=== PATIENT | female | born 1955 | race African-American/Black ===

== ENCOUNTER 2017-11-10 11:57 | Emergency (ER) | payer OTHER ==
--- NOTE | 2017-11-10 13:14 | RAD REPORT ---
EXAM DESCRIPTION: CT - [id number] - 11/10/2017 1:03 pm CLINICAL HISTORY: Fall, blunt force trauma to the head and face COMPARISON: CT head and cervical October 2014 TECHNIQUE: Axial 5 mm thick images of the head were obtained. Axial 2 mm thick images of the cervic al spine were obtained with sagittal and coronal reconstruction images generated and reviewed. All CT scans are performed using dose optimization technique as appropriate and may include automated exposure control or mA/KV adjustment according to patient size. FINDINGS: No intracranial hemorrhage, mass, edema or acute intracranial finding. No acute cortical based infarc tion. Minimal atrophy and chronic ischemic change matches the prior study. Ventricles are in proporti on to any volume loss. No extra-axial fluid collections. Mastoid air cells are clear. Sinuses, orbits and facial bones are separately detailed. Cervical bodies are normal in height. No subluxation abnormality. There is reversal of the usual cerv ical lordosis that could be from muscle spasm or positioning artifact. Anterior endplate spurs are pr esent from C2 - C6. No disk space narrowing. No fracture or acute bony abnormality. No paraspinal mass or hematoma. Central canal detail is inherently limited. IMPRESSION: No hemorrhage, edema or acute intracranial finding. Patient has mild atrophy and chronic ischemic change matching the 2015 study. Cervical spine degenerative changes are present. No acute finding or significant change from 2015. Facial bones, sinuses and orbits are separately detailed. Negative CT cervical spine examination for acute or significant finding.
--- NOTE | 2017-11-10 13:18 | RAD REPORT ---
EXAM DESCRIPTION: CT - Facial Bones W/ Mpr - 11/10/2017 1:03 pm CLINICAL HISTORY: Trip and fall, blunt force trauma to the right orbital region COMPARISON: CT imaging October 2014. TECHNIQUE: Axial 2 millimeter thick images of the facial bones were obtained with sagittal and coron al reconstruction imaging. All CT scans are performed using dose optimization technique as appropriate and may include automated exposure control or mA/KV adjustment according to patient size. FINDINGS: No facial bone fractures are identifiable. Buckling of the medial right orbital wall has n o associated ethmoid air cell or orbital fat abnormality. This appears to been present back 2014 as w ell. Contusion or edema changes are seen in the right periorbital soft tissues is well is overlying t he right maxillary sinus. There are no air-fluid levels in the paranasal sinuses. The mastoid air edouard ls are clear. Condyles of the mandible are normally positioned. No foreign body. No globe or orbital content abnormality identifiable. Right deviation of the posterior nasal septum is present believed t o predate the injury. No acute nasal septum fracture. IMPRESSION: No acute facial bone fracture. No orbit or sinus acute finding identifiable. Periorbital contusion and edema changes on the right.
--- NOTE | 2017-11-10 13:34 | EDPHYS ---
Physician Documentation [facility] Name: Paola Ji Age: 62 yrs Sex: Female : 1955 Arrival Date: 11/10/2017 Time: 12:00 Bed 5 Private MD: ED Physician Tripp Bernardo HPI: 11/10 13:29 This 62 yrs old Black Female presents to ER via Ambulatory with complaints of Eye rn Injury. 13:29 The patient sustained contusion. Onset: The symptoms/episode began/occurred 2 day(s) rn ago. 13:29 Aggravated by nothing. Alleviated by nothing. Associated signs and symptoms: Pertinent rn negatives:. Severity of symptoms: in the emergency department the symptoms have improved. The patient has not experienced similar symptoms in the past. Reports tripped, hit face on dresser, happened 2 days ago, no LOC, no blood thinners, hurts on face and neck. . Historical: - Allergies: 12:24 No Known Allergies; ph - Home Meds: 12:24 Hydrochlorothiazide Oral [Active]; amlodipine oral [Active]; carvedilol oral oral ph [Active]; - PMHx: 12:24 Hypertension; ph - PSHx: 12:24 Appendectomy; ph - Social history:: Smoking status: Patient uses tobacco products, denies chronic smoking, but will smoke occasionally. - Family history:: not pertinent. - Hospitalizations: : No recent hospitalization is reported. ROS: 13:29 Constitutional: Negative for fever, chills, and weight loss, Eyes: + right eye injury rn and pain ENT: Negative for injury, pain, and discharge, Neck: + pain, no swelling Cardiovascular: Negative for chest pain, palpitations, and edema, Respiratory: Negative for shortness of breath, cough, wheezing, and pleuritic chest pain, Abdomen/GI: Negative for abdominal pain, nausea, vomiting, diarrhea, and constipation, Back: Negative for injury and pain, MS/Extremity: Negative for injury and deformity, Skin: Negative for injury, rash, and discoloration, Neuro: Negative for weakness, numbness, tingling, and seizure. Exam: 13:29 Constitutional: This is a well developed, well nourished patient who is awake, alert, rn and in no acute distress. Head/Face: Normocephalic, + right periorbital ecchymosis, no crepitus, no laceration Eyes: Pupils equal round and reactive to light, extra-ocular motions intact. Lids and lashes normal. Conjunctiva and sclera are non-icteric and not injected. Cornea within normal limits. ENT: Nares patent. No nasal discharge, no septal abnormalities noted. Oropharynx with no redness, swelling, or masses, exudates, or evidence of obstruction, uvula midline. Mucous membranes moist. Neck: Trachea midline, no thyromegaly or masses palpated, and no cervical lymphadenopathy. Supple, full range of motion without nuchal rigidity, or vertebral point tenderness. No Meningismus. Skin: Warm, dry with normal turgor. Normal color with no rashes, no lesions, and no evidence of cellulitis. MS/ Extremity: Pulses equal, no cyanosis. Neurovascular intact. Full, normal range of motion. Equal circumference. Neuro: Awake and alert, GCS 15, oriented to person, place, time, and situation. Cranial nerves II-XII grossly intact. Motor strength 5/5 in all extremities. Sensory grossly intact. Cerebellar exam normal. Normal gait. Vital Signs: 12:23 BP 154 / 94; Pulse 88; Resp 18; Temp 97.5; Pulse Ox 100% on R/A; Weight 77.11 kg; ph Height 5 ft. 6 in. (167.64 cm); Pain 9/10; 12:23 Body Mass Index 27.44 (77.11 kg, 167.64 cm) ph MDM: 13:16 Patient medically screened. rn 13:29 Data reviewed: vital signs, nurses notes, radiologic studies, CT scan, and as a result, rn I will discharge patient. Counseling: I had a detailed discussion with the patient and/or guardian regarding: the historical points, exam findings, and any diagnostic results supporting the discharge/admit diagnosis, radiology results, the need for outpatient follow up, to return to the emergency department if symptoms worsen or persist or if there are any questions or concerns that arise at home. Special discussion: Based on the patient's history, exam and DX evaluation, there is no indication for emergent intervention or inpatient TX. It is understood by the patient/guardian that if the SXs persist or worsen they need to return immediately for re-evaluation. I discussed with the patient/guardian in detail that at this point there is no indication for admission to the hospital. It is understood, however, that if the symptoms persist or worsen the patient needs to return immediately for re-evaluation. 11/10 13:34 Order name: Urine Dipstick--Ancillary (enter results) bd 11/10 12:50 Order name: CT Head C Spine rn 11/10 12:50 Order name: CT Facial Bones W/O Con; Complete Time: 13:33 rn Administered Medications: No medications were administered Disposition: 11/10/17 13:33 Discharged to Home. Impression: Facial Contusion. - Condition is Stable. - Discharge Instructions: Contusion, Eye Contusion, Facial or Scalp Contusion. - Medication Reconciliation Form, Thank You Letter, Antibiotic Education, Prescription Opioid Use, Work release form form. - Follow up: Private Physician; When: As needed; Reason: Recheck today's complaints, Re-evaluation by your physician. - Problem is new. - Symptoms have improved. Signatures: Dispatcher [employer] EDMS Tripp Bernardo MD MD rn Hall, Patricia, RN RN ph Baxter, Heather, RN RN hb Corrections: (The following items were deleted from the chart) 13:30 13:29 Onset: The symptoms/episode began/occurred just prior to arrival, rn rn 13:49 13:33 11/10/2017 13:33 Discharged to Home. Impression: Facial Contusion. Condition is hb Stable. Forms are Medication Reconciliation Form, Thank You Letter, Antibiotic Education, Prescription Opioid Use. Follow up: Private Physician; When: As needed; Reason: Recheck today's complaints, Re-evaluation by your physician. Problem is new. Symptoms have improved. rn
--- NOTE | 2017-11-10 13:34 | ER ---
Nurse's Notes [facility] Name: Paola Ji Age: 62 yrs Sex: Female : 1955 Arrival Date: 11/10/2017 Time: 12:00 Bed 5 Private MD: Diagnosis: Facial Contusion Presentation: 11/10 12:20 Presenting complaint: Patient states: " I tripped and fell in my grandson's room and ph hit my face on his dresser. My neck is hurting on the L side and I have a knot on my head." Swelling and bruising noted to R eye, small knot on R protestant, pt denies LOC, dizziness, N/V, fall occurred Thursday. Transition of care: patient was not received from another setting of care. Mechanism of Injury: Fall from standing position. The patient denies any loss of vision. Onset of symptoms was November 10, 2017. Initial Sepsis Screen: Does the patient meet any 2 criteria? No. Patient's initial sepsis screen is negative. Does the patient have a suspected source of infection? No. Patient's initial sepsis screen is negative. Care prior to arrival: None. 12:20 Method Of Arrival: Ambulatory ph 12:20 Acuity: JAIMEE 4 ph Historical: - Allergies: 12:24 No Known Allergies; ph - Home Meds: 12:24 Hydrochlorothiazide Oral [Active]; amlodipine oral [Active]; carvedilol oral oral ph [Active]; - PMHx: 12:24 Hypertension; ph - PSHx: 12:24 Appendectomy; ph - Social history:: Smoking status: Patient uses tobacco products, denies chronic smoking, but will smoke occasionally. - Family history:: not pertinent. - Hospitalizations: : No recent hospitalization is reported. Screenin:15 Abuse screen: Denies threats or abuse. Denies injuries from another. Nutritional hb screening: No deficits noted. Tuberculosis screening: No symptoms or risk factors identified. Fall Risk None identified. Assessment: 13:15 General: Appears in no apparent distress. Behavior is calm, cooperative. Pain: Pain hb currently is 2 out of 10 on a pain scale. Neuro: Level of Consciousness is awake, alert, obeys commands, Oriented to person, place, time, situation. Cardiovascular: Capillary refill < 3 seconds Patient's skin is warm and dry. Respiratory: Airway is patent Trachea midline Respiratory effort is even, unlabored, Respiratory pattern is regular, symmetrical. EENT: Eyes clear. Sclera/Cornea clear. right periorbital bruising noted. Vital Signs: 12:23 BP 154 / 94; Pulse 88; Resp 18; Temp 97.5; Pulse Ox 100% on R/A; Weight 77.11 kg; ph Height 5 ft. 6 in. (167.64 cm); Pain 9/10; 12:23 Body Mass Index 27.44 (77.11 kg, 167.64 cm) ph ED Course: 12:00 Patient arrived in ED. sb2 12:23 Triage completed. ph 12:25 Arm band placed on. ph 12:56 CT completed. Patient tolerated procedure well. Patient moved to CT via wheelchair. Patient moved back from CT. 13:03 CT Head C Spine In Process Unspecified. EDMS 13:03 CT Facial Bones W/O Con In Process Unspecified. EDMS 13:05 CT completed. Patient tolerated procedure well. Patient moved back from radiology. 13:10 Patient has correct armband on for positive identification. Bed in low position. Call hb light in reach. Side rails up X 1. 13:16 Tripp Bernardo MD is Attending Physician. rn 13:47 Susan Traore, RN is Primary Nurse. hb 13:49 No provider procedures requiring assistance completed. Patient did not have IV access hb during this emergency room visit. Administered Medications: No medications were administered Outcome: 13:33 Discharge ordered by . rn 13:49 Discharged to home ambulatory. hb 13:49 Condition: stable 13:49 Discharge instructions given to patient, Instructed on discharge instructions, follow up and referral plans. Demonstrated understanding of instructions, follow-up care. 13:49 Patient left the ED. hb Signatures: Dispatcher [employer] EDKS Tripp Bernardo MD MD rn Hall, Patricia, RN RN Opal Paul Susan Traore, JB RN Brittany Win sb2
[2017-11-10 13:47] LABS: Urine Blood TRACE (NEG); Urine Glucose NEGATIVE (NEG); Urine Protein NEGATIVE (NEG); Urine Specific Gravity <1.005 (1.005-1.030); Urine pH 5.5 (5.0-7.0)
[2017-11-10 13:55] VITALS: BP 154/94; TEMP 97.5; O2SAT 100
== END 2017-11-10 13:49 | disposition home or self-care (01) ==
LOC: ER 11:57
DX: S00.83XA Contusion of other part of head, initial encounter (principal); W01.190A Fall on same level from slipping, tripping and stumbling with subsequent striking against furniture, initial encounter; Y93.9 Activity, unspecified; Y92.009 Unspecified place in unspecified non-institutional (private) residence as the place of occurrence of the external cause; Z72.0 Tobacco use; I10 Essential (primary) hypertension
CPT/HCPCS: 70450; 70486; 72125; 76377; 81003; 99284

== ENCOUNTER 2018-06-20 09:41 | Emergency (ER) | payer SELFPAY ==
[2018-06-20 10:20] LABS: Absolute Lymphocytes (CBC) 2.6 K/uL (0.7-4.9); Absolute Monocytes 0.5 K/uL (0.1-1.3); Absolute Neutrophil 2.2 K/uL (1.8-8.0); Basophils % 1.1 % (0-1.3); Eosinophils % 1.8 % (0-4.4); Hematocrit 47.9 % (36.0-45.0); Lymphocytes % 48.7 % (15.3-44.8); MCH 31.3 pg (27.0-35.0); MCV 90.8 fL (80-100); MPV 7.3 fL (7.6-11.3); Monocytes % 8.8 % (3.3-12.3); RBC Red Blood Cell Count 5.27 M/uL (3.86-4.86)
[2018-06-20 10:22] LABS: Protime INR 0.94
[2018-06-20 10:39] LABS: ALT/SGPT 39 U/L (12-78); AST/SGOT 67 U/L (15-37); Albumin 3.2 g/dL (3.4-5.0); Alkaline Phosphatase 151 U/L (45-117); BUN Blood Urea Nitrogen 7 mg/dL (7-18); Bicarbonate 24 mmol/L (21-32); Bilirubin Direct 0.1 mg/dL (0-0.2); Bilirubin Total 0.4 mg/dL (0.2-1.0); Glucose Level 91 mg/dL (74-106); Magnesium 2.4 mg/dL (1.8-2.4); NT PRO-BNP 50 pg/mL (<125); Potassium 3.5 mmol/L (3.5-5.1); Protein, Total 7.8 g/dL (6.4-8.2); Sodium Level 135 mmol/L (136-145); Troponin (Emerg Dept Use Only) < 0.02 ng/mL (0.0-0.045)
[2018-06-20 10:49] LABS: Blood Morphology Comment NOT SEEN (NOT SEEN); Platelet Estimate ADEQ; Urine White Blood Cell Casts OK
--- NOTE | 2018-06-20 11:49 | EDPHYS ---
Physician Documentation [facility] Name: Paola Ji Age: 63 yrs Sex: Female : 1955 Arrival Date: 06/20/2018 Time: 09:43 Bed 4 Private MD: ED Physician Jean Soliman HPI: 06/20 10:09 This 63 yrs old Black Female presents to ER via Wheelchair with complaints of Chest ps1 Pain. 10:09 Onset was over a month ago. Pain is nonspecific, dull, localized left chest and into ps1 left arm. Rated as mild. Additionally states that she has CHF and HTN. Out of meds for a while. No known [place] history. Appears anxious about being in ED. . Historical: - Allergies: 09:54 No Known Allergies; hj - Home Meds: 09:54 amlodipine oral [Active]; carvedilol Oral [Active]; Hydrochlorothiazide Oral [Active]; hj - PMHx: 09:54 Hypertension; iw - PSHx: 09:54 Appendectomy; iw - Immunization history:: Adult Immunizations up to date. - Ebola Screening: : Patient negative for fever greater than or equal to 101.5 degrees Fahrenheit, and additional compatible Ebola Virus Disease symptoms Patient denies exposure to infectious person Patient denies travel to an Ebola-affected area in the 21 days before illness onset No symptoms or risks identified at this time. - Social history:: Smoking status: Patient uses tobacco products, Patient/guardian denies using alcohol. ROS: 10:09 Constitutional: Negative for fever, chills, and weight loss, Eyes: Negative for injury, ps1 pain, redness, and discharge, Respiratory: Negative for shortness of breath, cough, wheezing, and pleuritic chest pain, Abdomen/GI: Negative for abdominal pain, nausea, vomiting, diarrhea, and constipation, Back: Negative for injury and pain, MS/Extremity: Negative for injury and deformity, Skin: Negative for injury, rash, and discoloration, Neuro: Negative for headache, weakness, numbness, tingling, and seizure. 10:09 Cardiovascular: Positive for chest pain. Exam: 10:09 Constitutional: This is a well developed, well nourished patient who is awake, alert, ps1 and in no acute distress. Head/Face: Normocephalic, atraumatic. Eyes: Pupils equal round and reactive to light, extra-ocular motions intact. Lids and lashes normal. Conjunctiva and sclera are non-icteric and not injected. Chest/axilla: Normal chest wall appearance and motion. Nontender with no deformity. No lesions are appreciated. Cardiovascular: Regular rate and rhythm. No gallops, murmurs, or rubs. Normal PMI, no JVD. No pulse deficits. Respiratory: Lungs have equal breath sounds bilaterally, clear to auscultation and percussion. No rales, rhonchi or wheezes noted. No increased work of breathing, no retractions or nasal flaring. Abdomen/GI: Soft, non-tender, with normal bowel sounds. No distension or tympany. No guarding or rebound. No evidence of tenderness throughout. Skin: Warm, dry with normal turgor. Normal color with no rashes, no lesions, and no evidence of cellulitis. MS/ Extremity: Pulses equal, no cyanosis. Neurovascular intact. Full, normal range of motion. Neuro: Awake and alert, GCS 15, oriented to person, place, time, and situation. Cranial nerves II-XII grossly intact. Sensory grossly intact. Vital Signs: 09:54 BP 164 / 84; Pulse 90; Resp 18; Temp 98.1(TE); Pulse Ox 97% on R/A; Weight 74.84 kg; hj Height 5 ft. 5 in. (165.10 cm); Pain 6/10; 10:48 BP 143 / 82; Pulse 90; Resp 18; Pulse Ox 98% on R/A; hj 11:30 BP 145 / 85; Pulse 88; Resp 18; Pulse Ox 97% on R/A; hj 12:02 BP 169 / 89; Pulse 89; Resp 18; Pulse Ox 98% on R/A; hj 13:12 BP 165 / 90; Pulse 85; Resp 18; Pulse Ox 100% on R/A; hj 09:54 Body Mass Index 27.46 (74.84 kg, 165.10 cm) MDM: 10:14 Patient medically screened. ps1 12:59 Data reviewed: vital signs, nurses notes, lab test result(s), radiologic studies, and ps1 as a result, I will discharge patient. 06/20 09:54 Order name: CBC with Diff; Complete Time: 11:15 ps1 06/20 09:54 Order name: LFT's; Complete Time: 10:39 ps1 06/20 09:54 Order name: Magnesium; Complete Time: 10:39 ps1 06/20 09:54 Order name: NT PRO-BNP; Complete Time: 10:39 ps1 06/20 09:54 Order name: PT-INR; Complete Time: 10:28 ps1 06/20 09:54 Order name: Troponin (emerg Dept Use Only); Complete Time: 10:39 ps1 06/20 09:54 Order name: XRAY Chest (1 view); Complete Time: 12:48 ps1 06/20 09:54 Order name: EKG; Complete Time: 09:55 ps1 06/20 09:54 Order name: Cardiac monitoring; Complete Time: 10:06 ps1 06/20 09:54 Order name: EKG - Nurse/Tech; Complete Time: 10:06 ps1 06/20 09:54 Order name: CMP; Complete Time: 10:39 ps1 06/20 10:29 Order name: CBC Smear Scan; Complete Time: 11:15 EDMS 06/20 11:04 Order name: Urine Dipstick--Ancillary (enter results); Complete Time: 12:48 ag 06/20 12:07 Order name: CT Abd/Pelvis - W/Contrast; Complete Time: 12:48 ps1 06/20 09:54 Order name: IV Saline Lock; Complete Time: 10:06 ps1 06/20 09:54 Order name: Labs collected and sent; Complete Time: 10:07 ps1 06/20 09:54 Order name: O2 Per Protocol; Complete Time: 10:07 ps1 06/20 09:54 Order name: O2 Sat Monitoring; Complete Time: 10:07 ps1 06/20 10:24 Order name: Labs - recollect needed; Complete Time: 10:26 ag EC:13 Rate is 92 beats/min. Rhythm is regular. QRS Ken[place] is Normal. TN interval is normal. QRS ps1 interval is normal. QT interval is normal. No Q waves. T waves are Normal. No ST changes noted. Clinical impression: MAXWELL, old anterior infarct. NSR. . Interpreted by me. Administered Medications: No medications were administered Disposition: 06/20/18 11:48 Discharged to Home. Impression: Chest pain, unspecified, Hypertension secondary to other renal disorders, Benign Hemangioma, Vaginal bleeding, post-menopausal. - Condition is Stable. - Discharge Instructions: Nonspecific Chest Pain, Hypertension, [id number], Endometrial Biopsy. - Prescriptions for amlodipine besylate (bulk) - take 1 tablet by ORAL route once daily; 30 tablet. Hydrochlorothiazide 12.5 mg Oral Tablet - take 1 tablet by ORAL route once daily; 30 tablet. Carvedilol 12.5 mg Oral Tablet - take 1 tablet by ORAL route 2 times per day with food; 60 tablet. - Work release form, Medication Reconciliation Form, Thank You Letter, Antibiotic Education, Prescription Opioid Use form. - Follow up: Private Physician; When: 1 week; Reason: Further diagnostic work-up, Recheck today's complaints, Continuance of care, Re-evaluation by your physician. Follow up: Emergency Department; When: As needed; Reason: Worsening of condition. Follow up: Chaitanya Goodman MD; When: 1 week; Reason: Further diagnostic work-up. - Problem is an ongoing problem. - Symptoms are unchanged. Signatures: Dispatcher [employer] EDPattie Jarvis RN RN iw Gallardo, Ana ag Joaquin, Henry, RN RN hj Singer, Phillip, MD MD ps1 Corrections: (The following items were deleted from the chart) 12:57 11:48 06/20/2018 11:48 Discharged to Home. Impression: Chest pain, unspecified; ps1 Hypertension secondary to other renal disorders. Condition is Stable. Forms are Medication Reconciliation Form, Thank You Letter, Antibiotic Education, Prescription Opioid Use. Follow up: Private Physician; When: 1 week; Reason: Further diagnostic work-up, Recheck today's complaints, Continuance of care, Re-evaluation by your physician. Follow up: Emergency Department; When: As needed; Reason: Worsening of condition. Problem is an ongoing problem. Symptoms are unchanged. ps1 13:23 12:57 06/20/2018 11:48 Discharged to Home. Impression: Chest pain, unspecified; hj Hypertension secondary to other renal disorders; Benign Hemangioma; Vaginal bleeding, post-menopausal. Condition is Stable. Discharge Instructions: Nonspecific Chest Pain, Hypertension, [id number]. Prescriptions for amlodipine besylate (bulk) - take 1 tablet by ORAL route once daily; 30 tablet, Hydrochlorothiazide 12.5 mg Oral Tablet - take 1 tablet by ORAL route once daily; 30 tablet, Carvedilol 12.5 mg Oral Tablet - take 1 tablet by ORAL route 2 times per day with food; 60 tablet. and Forms are Medication Reconciliation Form, Thank You Letter, Antibiotic Education, Prescription Opioid Use. Follow up: Private Physician; When: 1 week; Reason: Further diagnostic work-up, Recheck today's complaints, Continuance of care, Re-evaluation by your physician. Follow up: Emergency Department; When: As needed; Reason: Worsening of condition. Follow up: Chaitanya Goodman; When: 1 week; Reason: Further diagnostic work-up. Problem is an ongoing problem. Symptoms are unchanged. ps1
--- NOTE | 2018-06-20 11:49 | ER ---
Nurse's Notes [facility] Name: Paola Ji Age: 63 yrs Sex: Female : 1955 Arrival Date: 06/20/2018 Time: 09:43 Bed 4 Private MD: Diagnosis: Chest pain, unspecified;Hypertension secondary to other renal disorders;Benign Hemangioma;Vaginal bleeding, post-menopausal Presentation: 06/20 09:52 Presenting complaint: Patient states: chest pain X 2 months, hx of CHF, SOB on exertion iw that's new, yesterday had blood clot when she urinated and is having lower abd pain. Transition of care: patient was not received from another setting of care. Onset of symptoms was March 2018. Risk Assessment: Do you want to hurt yourself or someone else? Patient reports no desire to harm self or others. Initial Sepsis Screen: Does the patient meet any 2 criteria? No. Patient's initial sepsis screen is negative. Does the patient have a suspected source of infection? No. Patient's initial sepsis screen is negative. Care prior to arrival: None. 09:52 Method Of Arrival: Wheelchair iw 09:52 Acuity: JAIMEE 3 iw Triage Assessment: 09:54 General: Appears in no apparent distress. uncomfortable, Behavior is cooperative, hj appropriate for age, anxious. Pain: Complains of pain in chest Pain radiates to left arm. EENT: No signs and/or symptoms were reported regarding the EENT system. Neuro: Level of Consciousness is awake, alert, obeys commands, Oriented to person, place, time, situation, Appropriate for age. Cardiovascular: Heart tones S1 S2 present Capillary refill < 3 seconds Patient's skin is warm and dry. Rhythm is regular. Respiratory: Reports shortness of breath. GI: No signs and/or symptoms were reported involving the gastrointestinal system. : No signs and/or symptoms were reported regarding the genitourinary system. Derm: No signs and/or symptoms reported regarding the dermatologic system. Musculoskeletal: No deficits noted. Historical: - Allergies: :54 No Known Allergies; hj - Home Meds: :54 amlodipine oral [Active]; carvedilol Oral [Active]; Hydrochlorothiazide Oral [Active]; hj - PMHx: 09:54 Hypertension; iw - PSHx: 09:54 Appendectomy; iw - Immunization history:: Adult Immunizations up to date. - Ebola Screening: : Patient negative for fever greater than or equal to 101.5 degrees Fahrenheit, and additional compatible Ebola Virus Disease symptoms Patient denies exposure to infectious person Patient denies travel to an Ebola-affected area in the 21 days before illness onset No symptoms or risks identified at this time. - Social history:: Smoking status: Patient uses tobacco products, Patient/guardian denies using alcohol. Screenin:54 Abuse screen: Denies threats or abuse. Denies injuries from another. Nutritional hj screening: No deficits noted. Tuberculosis screening: No symptoms or risk factors identified. Fall Risk None identified. Assessment: 09:54 Pain: Pain began 2 months ago;. hj 10:48 Reassessment: Patient and/or family updated on plan of care and expected duration. Pain hj level reassessed. Patient is alert, oriented x 3, equal unlabored respirations, skin warm/dry/pink. 11:30 Reassessment: Patient and/or family updated on plan of care and expected duration. Pain hj level reassessed. Patient is alert, oriented x 3, equal unlabored respirations, skin warm/dry/pink. Patient states feeling better. Patient states symptoms have improved. 12:01 Reassessment: pt wsnted to speak to ED MD prior to D/C for questions regarding throwing hj up blood;. 12:09 Reassessment: Patient and/or family updated on plan of care and expected duration. Pain hj level reassessed. Patient is alert, oriented x 3, equal unlabored respirations, skin warm/dry/pink. ED MD added CT abd test for vag bleed complain from pt;. Vital Signs: 09:54 BP 164 / 84; Pulse 90; Resp 18; Temp 98.1(TE); Pulse Ox 97% on R/A; Weight 74.84 kg; hj Height 5 ft. 5 in. (165.10 cm); Pain 6/10; 10:48 BP 143 / 82; Pulse 90; Resp 18; Pulse Ox 98% on R/A; hj 11:30 BP 145 / 85; Pulse 88; Resp 18; Pulse Ox 97% on R/A; hj 12:02 BP 169 / 89; Pulse 89; Resp 18; Pulse Ox 98% on R/A; hj 13:12 BP 165 / 90; Pulse 85; Resp 18; Pulse Ox 100% on R/A; hj 09:54 Body Mass Index 27.46 (74.84 kg, 165.10 cm) ED Course: 09:43 Patient arrived in ED. rg4 09:51 Andrew Zacarias, RN is Primary Nurse. hj 09:53 Jean Soliman MD is Attending Physician. ps1 09:54 Triage completed. iw 09:54 Patient maintains SpO2 saturation greater than 95% on room air. hj 09:54 Arm band placed on right wrist. hj 09:54 EKG completed in triage. Results shown to MD. hj 09:54 Patient has correct armband on for positive identification. Placed in gown. Bed in low hj position. Call light in reach. Side rails up X2. Adult w/ patient. traffic monitor specialist on. Pulse ox on. NIBP on. 10:05 Initial lab(s) drawn, by me, sent to lab. Inserted saline lock: 22 gauge in left hj antecubital area, using aseptic technique. Blood collected. 10:13 X-ray completed. Portable x-ray completed in exam room. Patient tolerated procedure sg4 well. 10:29 XRAY Chest (1 view) In Process Unspecified. EDMS 12:31 CT completed. Patient tolerated procedure well. Patient moved back from CT. kc3 12:32 CT Abd/Pelvis - W/Contrast In Process Unspecified. EDMS 12:57 Chaitanya Goodman MD is Referral Physician. ps1 13:12 No provider procedures requiring assistance completed. IV discontinued, intact, hj bleeding controlled, No redness/swelling at site. Pressure dressing applied. Administered Medications: No medications were administered Outcome: 11:48 Discharge ordered by . ps1 13:12 Discharged to home ambulatory, with family. hj 13:12 Condition: stable 13:12 Discharge instructions given to patient, family, Instructed on discharge instructions, follow up and referral plans. medication usage, Demonstrated understanding of instructions, follow-up care, medications, Prescriptions given X 3. 13:23 Patient left the ED. Signatures: Dispatcher [employer] EDMS Pattie Louie RN RN Andrew Zacarias RN RN hj Garcia, Rubi rg4 Jean Soliman MD MD ps1 Manuela Abbott kc3 Natalie Arias sg4 Corrections: (The following items were deleted from the chart) 10:21 10:20 BP 164 / 84; Pulse 90bpm; Resp 18bpm; Pulse Ox 97% RA; Temp 98.1F Temporal; 74.84 hj kg; Height 5 ft. 5 in.; BMI: 27.4; Pain 6/10; hj
--- NOTE | 2018-06-20 12:05 | RAD REPORT ---
EXAM DESCRIPTION: RAD - Chest Single View - 06/20/2018 10:23 am CLINICAL HISTORY: CHEST PAIN Chest pain. COMPARISON: Chest Pa And Lat (2 Views) dated 02/16/2017; CHEST SINGLE VIEW dated 05/23/2014; CHEST SI NGLE VIEW dated 05/22/2014 FINDINGS: Portable technique limits examination quality. The lungs are grossly clear. The heart is normal in size. No displaced fractures. IMPRESSION: No acute intrathoracic process suspected.
[2018-06-20 12:36] LABS: Urine Blood TRACE (NEG); Urine Glucose NEGATIVE (NEG); Urine Protein NEGATIVE (NEG); Urine Specific Gravity <1.005 (1.005-1.030)
--- NOTE | 2018-06-20 12:44 | RAD REPORT ---
EXAM DESCRIPTION: CTAbdomen Pelvis W Contrast - 06/20/2018 12:31 pm CLINICAL HISTORY: Abdominal pain. vaginal bleeding post menopausal COMPARISON: No comparisons TECHNIQUE: Biphasic CT imaging of the abdomen and pelvis was performed with 100 ml non-ionic IV cont rast. All CT scans are performed using dose optimization technique as appropriate and may include automated exposure control or mA/KV adjustment according to patient size. FINDINGS: The lung bases are clear.Small hiatal hernia. Mild fatty liver is seen with lesion in the posterosuperior right lobe of the liver measuring 4.3 x 4 .3 cm with incomplete nodular peripheral enhancement pattern. This is favored to represent a benign h emangioma. The spleen, pancreas and left adrenal gland are normal. Right adrenal gland shows mild thi ckening. The kidneys show no mass, stone or hydronephrosis. No bowel obstruction, free air, free fluid or abscess. Prominent sigmoid diverticulosis coli seen wit hout diverticulitis. The appendix appears absent. No evidence of significant lymphadenopathy. The endometrium appears thickened measuring up to 2.4 cm in the fundal region. Moderate lumbosacral d egenerative changes. IMPRESSION: Thickened endometrial stripe measuring up to 2.4 cm. In a postmenopausal female, this wo uld be considered abnormal and polyp, hyperplasia or neoplasia are all possible. Followup tissue [facility] ling would be advised. Enhancing liver mass is most compatible with benign hemangioma. Prominent sigmoid diverticulosis coli without diverticulitis.
[2018-06-20 15:04] VITALS: TEMP 98.1
[2018-06-20 15:09] VITALS: BP 165/90; O2SAT 100
--- NOTE | 2018-06-20 17:27 | EKG ---
Test Date: 2018-06-20 Test Time: 09:57:55 Electric Organ Assembler And Checker: JALYN MEASUREMENT RESULTS: Intervals: Rate: 92 [place]: 164 QRSD: 88 QT: 390 QTc: 482 [place]: P: 72 [place]: 164 QRS: -18 T: 19 INTERPRETIVE STATEMENTS: Normal sinus rhythm Right atrial enlargement Possible Anterior infarct, age undetermined Abnormal ECG Compared to ECG 02/16/2017 11:59:57 Atrial abnormality now present Atrial premature complex(es) no longer present Left ventricular hypertrophy no longer present Myocardial infarct finding still present Electronically Signed On 06-20-18 17:17:51 FUN HOUSE OPERATOR by Nick Machado
== END 2018-06-20 13:23 | disposition home or self-care (01) ==
LOC: ER 09:41
DX: I15.1 Hypertension secondary to other renal disorders (principal); N95.0 Postmenopausal bleeding; D18.00 Hemangioma unspecified site; Z72.0 Tobacco use
CPT/HCPCS: 36415; 71045; 74177; 80053; 80076; 81003; 83735; 83880; 84484; 85025; 85610; 93005; 99285; Q9967

== ENCOUNTER 2018-07-20 10:10 | Emergency (ER) | payer SELFPAY ==
[2018-07-20] MEDS ORDERED: FAMOTIDINE 20 MG/2 ML VIAL IV ONE (10:42)
[2018-07-20 10:46] LABS: Absolute Lymphocytes (CBC) 2.1 K/uL (0.7-4.9); Absolute Monocytes 0.3 K/uL (0.1-1.3); Absolute Neutrophil 1.5 K/uL (1.8-8.0); Basophils % 0.1 % (0-1.3); Eosinophils % 1.3 % (0-4.4); Hematocrit 47.3 % (36.0-45.0); Lymphocytes % 52.9 % (15.3-44.8); MPV 7.1 fL (7.6-11.3); Monocytes % 8.5 % (3.3-12.3); RBC Red Blood Cell Count 5.22 M/uL (3.86-4.86)
[2018-07-20 10:53] LABS: Protime INR 0.97
[2018-07-20 11:11] LABS: ALT/SGPT 44 U/L (12-78); AST/SGOT 86 U/L (15-37); Alkaline Phosphatase 131 U/L (45-117); BUN Blood Urea Nitrogen 7 mg/dL (7-18); Bicarbonate 23 mmol/L (21-32); Bilirubin Direct 0.1 mg/dL (0-0.2); Bilirubin Total 0.3 mg/dL (0.2-1.0); Glucose Level 90 mg/dL (74-106); Lipase 181 U/L (73-393); Magnesium 2.3 mg/dL (1.8-2.4); NT PRO-BNP 25 pg/mL (<125); Potassium 3.9 mmol/L (3.5-5.1); Protein, Total 7.4 g/dL (6.4-8.2); Sodium Level 134 mmol/L (136-145); Troponin (Emerg Dept Use Only) < 0.02 ng/mL (0.0-0.045)
--- NOTE | 2018-07-20 11:53 | EDPHYS ---
Physician Documentation [facility] Name: Paola Ji Age: 63 yrs Sex: Female : 1955 Arrival Date: 07/20/2018 Time: 10:11 Bed 8 Private MD: ED Physician Shane Ojeda HPI: 07/20 11:49 This 63 yrs old Black Female presents to ER via Ambulatory with complaints of Chest gs Pain, Abdominal Pain. 11:49 The patient or guardian reports chest pain that is located primarily in the epigastric gs area. Onset: 1 week(s) ago. The pain does not radiate. Associated signs and symptoms: Pertinent positives: nausea. The chest pain is described as burning, dull. Duration: The patient or guardian reports multiple episodes, that are intermittent, that wax and wane, with no pattern. Modifying factors: The symptoms are alleviated by nothing. the symptoms are aggravated by nothing. Severity of pain: At its worst the pain was moderate in the emergency department the pain has improved moderately. The patient has experienced similar episodes in the past, a few times. Historical: - Allergies: 10:21 No Known Allergies; ph - Home Meds: 10:21 amlodipine oral [Active]; carvedilol Oral [Active]; Hydrochlorothiazide Oral [Active]; ph - PMHx: 10:21 Hypertension; ph - PSHx: 10:21 Appendectomy; ph - Immunization history:: Adult Immunizations unknown. - Social history:: Smoking status: Patient uses tobacco products, denies chronic smoking, but will smoke occasionally. - Ebola Screening: : No symptoms or risks identified at this time. ROS: 11:49 All other systems are negative. gs Exam: 11:49 Head/Face: Normocephalic, atraumatic. Eyes: Pupils equal round and reactive to light, gs extra-ocular motions intact. Lids and lashes normal. Conjunctiva and sclera are non-icteric and not injected. Cornea within normal limits. Periorbital areas with no swelling, redness, or edema. ENT: Nares patent. No nasal discharge, no septal abnormalities noted. Tympanic membranes are normal and external auditory canals are clear. Oropharynx with no redness, swelling, or masses, exudates, or evidence of obstruction, uvula midline. Mucous membranes moist. Neck: Trachea midline, no thyromegaly or masses palpated, and no cervical lymphadenopathy. Supple, full range of motion without nuchal rigidity, or vertebral point tenderness. No Meningismus. Chest/axilla: Normal chest wall appearance and motion. Nontender with no deformity. No lesions are appreciated. Cardiovascular: Regular rate and rhythm with a normal S1 and S2. No gallops, murmurs, or rubs. Normal PMI, no JVD. No pulse deficits. Respiratory: Lungs have equal breath sounds bilaterally, clear to auscultation and percussion. No rales, rhonchi or wheezes noted. No increased work of breathing, no retractions or nasal flaring. Abdomen/GI: Soft, non-tender, with normal bowel sounds. No distension or tympany. No guarding or rebound. No evidence of tenderness throughout. Back: No spinal tenderness. No costovertebral tenderness. Full range of motion. Skin: Warm, dry with normal turgor. Normal color with no rashes, no lesions, and no evidence of cellulitis. MS/ Extremity: Pulses equal, no cyanosis. Neurovascular intact. Full, normal range of motion. Neuro: Awake and alert, GCS 15, oriented to person, place, time, and situation. Cranial nerves II-XII grossly intact. Motor strength 5/5 in all extremities. Sensory grossly intact. Cerebellar exam normal. Normal gait. 11:49 Constitutional: The patient appears alert, awake. 11:49 Constitutional: The patient appears smells of alcohol, ETOH. 11:49 ECG was reviewed by the Attending Physician. Vital Signs: 10:21 Pulse 91; Resp 18; Temp 98.8; Pulse Ox 97% on R/A; Weight 72.57 kg; Height 5 ft. 6 in. ph (167.64 cm); Pain 8/10; 10:22 BP 144 / 93; sv 11:07 BP 158 / 90; Pulse 80; Resp 14; Pulse Ox 100% ; sv 10:21 Body Mass Index 25.82 (72.57 kg, 167.64 cm) ph MDM: 10:30 Patient medically screened. gs 11:49 Differential diagnosis: chest wall pain, congestive heart failure gastroesophageal gs reflux disease (GERD), pancreatitis, peptic ulcer disease. Data reviewed: vital signs, nurses notes. Response to treatment: the patient's symptoms have resolved after treatment, the patient's pain is gone, and as a result, I will discharge patient. 01/22 10:30 Order name: Basic Metabolic Panel; Complete Time: : 07/20 10:30 Order name: CBC with Diff; Complete Time: : 07/20 10:30 Order name: LFT's; Complete Time: : 07/20 10:30 Order name: Magnesium; Complete Time: 11: 07/20 10:30 Order name: NT PRO-BNP; Complete Time: : 07/20 10:30 Order name: PT-INR; Complete Time: : 07/20 10:30 Order name: Troponin (emerg Dept Use Only); Complete Time: : 07/20 10:30 Order name: XRAY Chest (1 view) 07/20 10:30 Order name: EKG; Complete Time: 10:33 07/20 10:30 Order name: Cardiac monitoring; Complete Time: 10:49 07/20 10:30 Order name: EKG - Nurse/Tech; Complete Time: 07/20 10:30 Order name: IV Saline Lock; Complete Time: 07/20 10:30 Order name: Lipase; Complete Time: : 07/20 10:30 Order name: Labs collected and sent; Complete Time: 07/20 10:30 Order name: O2 Per Protocol; Complete Time: 07/20 10:30 Order name: O2 Sat Monitoring; Complete Time: 10:50 gs EC:49 Rate is 89 beats/min. Rhythm is regular. WV interval is normal. QRS interval is normal. gs QT interval is normal. T waves are Peaked in lead V2. Clinical impression: Abnormal EKG without significant change. Interpreted by me. Administered Medications: 10:35 Drug: Pepcid 20 mg Route: IVP; Site: left antecubital; sv 10:50 Follow up: Response: No adverse reaction sv Disposition: 07/20/18 11:52 Discharged to Home. Impression: Chest pain, unspecified, Epigastric pain. - Condition is Stable. - Discharge Instructions: Abdominal Pain, Adult, Nonspecific Chest Pain. - Prescriptions for Pepcid 20 mg Oral Tablet - take 1 tablet by ORAL route every 12 hours for 10 days; 20 tablet. - Work release form, Medication Reconciliation Form, Thank You Letter, Antibiotic Education, Prescription Opioid Use form. - Follow up: Private Physician; When: 2 - 3 days; Reason: Re-evaluation by your physician. Signatures: Dispatcher [employer] Haylee Denise, RN Jodi Shabazz RN RN ss Hall, Patricia, RN RN ph Starr, Gregory, MD MD gs Corrections: (The following items were deleted from the chart) 12:15 11:52 07/20/2018 11:52 Discharged to Home. Impression: Chest pain, unspecified; ss Epigastric pain. Condition is Stable. Forms are Medication Reconciliation Form, Thank You Letter, Antibiotic Education, Prescription Opioid Use. Follow up: Private Physician; When: 2 - 3 days; Reason: Re-evaluation by your physician. gs
--- NOTE | 2018-07-20 11:53 | ER ---
Nurse's Notes [facility] Name: Paola Ji Age: 63 yrs Sex: Female : 1955 Arrival Date: 07/20/2018 Time: 10:11 Bed 8 Private MD: Diagnosis: Chest pain, unspecified;Epigastric pain Presentation: 07/20 10:19 Presenting complaint: Patient states: Lower abdominal cramping and vaginal "spotting" x ph approx 3 weeks, also reports L sided chest pain for approx 3 weeks, chest pain does not radiate and is worsened by movement of L arm, denies N/V or SOB. Transition of care: patient was not received from another setting of care. Onset of symptoms was July 20, 2018. Risk Assessment: Do you want to hurt yourself or someone else? Patient reports no desire to harm self or others. Initial Sepsis Screen: Does the patient meet any 2 criteria? No. Patient's initial sepsis screen is negative. Does the patient have a suspected source of infection? No. Patient's initial sepsis screen is negative. Care prior to arrival: None. 10:19 Method Of Arrival: Ambulatory ph 10:19 Acuity: JAIMEE 3 ph Historical: - Allergies: 10:21 No Known Allergies; ph - Home Meds: 10:21 amlodipine oral [Active]; carvedilol Oral [Active]; Hydrochlorothiazide Oral [Active]; ph - PMHx: 10:21 Hypertension; ph - PSHx: 10:21 Appendectomy; ph - Immunization history:: Adult Immunizations unknown. - Social history:: Smoking status: Patient uses tobacco products, denies chronic smoking, but will smoke occasionally. - Ebola Screening: : No symptoms or risks identified at this time. Screenin:50 Abuse screen: Denies threats or abuse. Denies injuries from another. Nutritional sv screening: No deficits noted. Tuberculosis screening: No symptoms or risk factors identified. Fall Risk None identified. Assessment: 10:20 General: Appears in no apparent distress. comfortable, Behavior is calm, cooperative, sv appropriate for age. Pain: Complains of pain in chest Pain does not radiate. Pain currently is 8 out of 10 on a pain scale. Pain began weeks. Neuro: Level of Consciousness is awake, alert, obeys commands, Oriented to person, place, time, situation, Moves all extremities. Full function Gait is steady. Cardiovascular: Patient's skin is warm and dry. Rhythm is sinus rhythm. Respiratory: Respiratory effort is even, unlabored, Respiratory pattern is regular, symmetrical. : Reports vaginal bleeding that is spotty. Derm: Skin is normal. 11:10 Reassessment: Patient appears in no apparent distress at this time. No changes from sv previously documented assessment. Patient and/or family updated on plan of care and expected duration. Pain level reassessed. Patient is alert, oriented x 3, equal unlabored respirations, skin warm/dry/pink. 12:14 Reassessment: Patient appears in no apparent distress at this time. Patient and/or ss family updated on plan of care and expected duration. Pain level reassessed. Patient is alert, oriented x 3, equal unlabored respirations, skin warm/dry/pink. Patient denies pain at this time. Patient states feeling better. Vital Signs: 10:21 Pulse 91; Resp 18; Temp 98.8; Pulse Ox 97% on R/A; Weight 72.57 kg; Height 5 ft. 6 in. ph (167.64 cm); Pain 8/10; 10:22 BP 144 / 93; sv 11:07 BP 158 / 90; Pulse 80; Resp 14; Pulse Ox 100% ; sv 10:21 Body Mass Index 25.82 (72.57 kg, 167.64 cm) ph ED Course: 10:11 Patient arrived in ED. as 10:14 Shane Ojeda MD is Attending Physician. gs 10:16 Haylee Barrios, JB is Primary Nurse. sv 10:21 Triage completed. ph 10:22 ED physician to see patient. sv 10:22 Arm band placed on Patient placed in an exam room, on a stretcher. ph 10:25 Patient has correct armband on for positive identification. Placed in gown. Bed in low sv position. Call light in reach. site monitor on. Pulse ox on. NIBP on. Door closed. Warm blanket given. Head of bed elevated. 10:25 EKG done, by technology integration specialist. reviewed by Shane Ojeda MD. at1 10:30 Patient maintains SpO2 saturation greater than 95% on room air. sv 11:48 X-ray completed. Portable x-ray completed in exam room. jb2 11:49 XRAY Chest (1 view) In Process Unspecified. EDMS 12:14 No provider procedures requiring assistance completed. IV discontinued, intact, ss bleeding controlled, No redness/swelling at site. Pressure dressing applied. Administered Medications: 10:35 Drug: Pepcid 20 mg Route: IVP; Site: left antecubital; sv 10:50 Follow up: Response: No adverse reaction sv Outcome: 11:52 Discharge ordered by . 12:14 Discharged to home ambulatory. 12:14 Condition: good 12:14 Discharge instructions given to patient, family, Instructed on discharge instructions, follow up and referral plans. medication usage, Demonstrated understanding of instructions, follow-up care, medications, Prescriptions given X 1. 12:15 Patient left the ED. Signatures: Dispatcher [employer] EDPA Haylee Barrios RN RN Jose L Kumar Amelia as Smirch, Shelby, RN RN Megan Joel, etl database developer EKG Tat1 Tara Siu RN RN Shane Ojeda MD MD
--- NOTE | 2018-07-20 12:05 | RAD REPORT ---
EXAM DESCRIPTION: RAD - Chest Single View - 07/20/2018 11:54 am CLINICAL HISTORY: CHEST PAIN Chest pain. COMPARISON: Chest Single View dated 06/20/2018; Chest Pa And Lat (2 Views) dated 02/16/2017; CHEST SI NGLE VIEW dated 05/23/2014; CHEST SINGLE VIEW dated 05/22/2014 FINDINGS: Portable technique limits examination quality. The lungs are grossly clear. The heart is normal in size. No displaced fractures. IMPRESSION: No acute intrathoracic process suspected.
[2018-07-20 12:21] VITALS: TEMP 98.8
[2018-07-20 12:23] VITALS: BP 158/90; O2SAT 100
--- NOTE | 2018-07-20 13:24 | EKG ---
Test Date: 2018-07-20 Test Time: 10:18:39 Carton Marker Machine: NICKY MEASUREMENT RESULTS: Intervals: Rate: 89 LA: 168 QRSD: 86 QT: 364 QTc: 442 [place]: P: 69 LA: 168 QRS: -25 T: 32 INTERPRETIVE STATEMENTS: Normal sinus rhythm Possible Anterior infarct, age undetermined Abnormal ECG Compared to ECG 06/20/2018 09:57:55 Atrial abnormality no longer present Myocardial infarct finding still present Electronically Signed On 07-20-18 13:23:59 MOTION PICTURE ACTOR by Nick Machado
== END 2018-07-20 12:15 | disposition home or self-care (01) ==
LOC: ER 10:10
DX: R07.9 Chest pain, unspecified (principal); R10.13 Epigastric pain; R94.31 Abnormal electrocardiogram [ECG] [EKG]; I10 Essential (primary) hypertension; Z79.899 Other long term (current) drug therapy; Z72.0 Tobacco use
CPT/HCPCS: 36415; 71045; 80048; 80076; 83690; 83735; 83880; 84484; 85025; 85610; 93005; 96374; 99285

== ENCOUNTER 2019-03-27 08:28 | Emergency (ER) | payer OTHER, SELFPAY ==
--- NOTE | 2019-03-27 09:14 | ER ---
Nurse's Notes [facility] Name: Paola Ji Age: 64 yrs Sex: Female : 1955 Arrival Date: 03/27/2019 Time: 08:33 Bed 6 Private MD: Diagnosis: Sciatica, right side;Low back pain Presentation: 03/27 08:40 Presenting complaint: Patient states: right hip pain that radiates down the right leg sv started last night. Transition of care: patient was not received from another setting of care. Onset of symptoms was March 26, 2019. Risk Assessment: Do you want to hurt yourself or someone else? Patient reports no desire to harm self or others. Initial Sepsis Screen: Does the patient meet any 2 criteria? No. Patient's initial sepsis screen is negative. Does the patient have a suspected source of infection? No. Patient's initial sepsis screen is negative. Care prior to arrival: None. 08:40 Method Of Arrival: Wheelchair sv 08:40 Acuity: JAIMEE 4 sv Triage Assessment: 08:43 General: Appears in no apparent distress. uncomfortable, well developed, Behavior is sv calm, cooperative, appropriate for age. Pain: Complains of pain in right hip Pain radiates to right leg Pain currently is 9 out of 10 on a pain scale. Pain began 1 day ago. Is continuous, Aggravated by increased activity, weight bearing. Neuro: Level of Consciousness is awake, alert, obeys commands, Oriented to person, place, time, situation, Gait is steady. Respiratory: Airway is patent Respiratory effort is even, unlabored, Respiratory pattern is regular, symmetrical. Derm: Skin is pink, warm \T\ dry. Historical: - Allergies: 08:42 No Known Allergies; sv - Home Meds: 08:42 amlodipine 5 mg oral tab once daily [Active]; carvedilol 12.5 mg oral tab 2 times per sv day [Active]; hydrochlorothiazide 12.5 mg oral tab once daily [Active]; lovastatin 20 mg Oral tab 1 tab once daily [Active]; - PMHx: 08:42 Hypertension; CHF; sv - PSHx: 08:42 Appendectomy; sv - Immunization history:: Adult Immunizations up to date. - Ebola Screening: : No symptoms or risks identified at this time. - Family history:: not pertinent. Screenin:42 Abuse screen: Denies threats or abuse. Denies injuries from another. Nutritional sv screening: No deficits noted. Tuberculosis screening: No symptoms or risk factors identified. Fall Risk None identified. Assessment: 09:35 Reassessment: Patient appears in no apparent distress at this time. No changes from sv previously documented assessment. Patient and/or family updated on plan of care and expected duration. Pain level reassessed. Patient is alert, oriented x 3, equal unlabored respirations, skin warm/dry/pink. Vital Signs: 08:42 BP 144 / 95; Pulse 85; Resp 16; Temp 98.3; Pulse Ox 100% ; Weight 75.75 kg; Height 5 sv ft. 6 in. (167.64 cm); Pain 9/10; 08:42 Body Mass Index 26.95 (75.75 kg, 167.64 cm) sv ED Course: 08:33 Patient arrived in ED. am2 08:35 James Hoskins MD is Attending Physician. farhan 08:40 Haylee Barrios RN is Primary Nurse. sv 08:41 Triage completed. sv 08:42 Arm band placed on Patient placed in an exam room, on a stretcher. sv 08:42 Patient has correct armband on for positive identification. Bed in low position. Call sv light in reach. Pulse ox on. NIBP on. Door closed. Head of bed elevated. 08:43 Awaiting ED provider evaluation. sv 09:06 ED physician to see patient. sv 09:35 No provider procedures requiring assistance completed. Patient did not have IV access sv during this emergency room visit. Administered Medications: 09:34 Drug: Motrin 400 mg Route: PO; sv 09:34 Follow up: Response: Medication administered at discharge. sv 09:34 Drug: Valium 5 mg Route: PO; sv 09:34 Follow up: Response: Medication administered at discharge. sv 09:34 Drug: Decadron 2 mg Route: PO; sv 09:34 Follow up: Response: Medication administered at discharge. sv Outcome: 09:14 Discharge ordered by . farhan 09:35 Discharged to home ambulatory, with family, Pt's family driving her home. sv 09:35 Condition: stable 09:35 Discharge instructions given to patient, Instructed on discharge instructions, follow up and referral plans. medication usage, Demonstrated understanding of instructions, follow-up care, medications, Prescriptions given X 4. 09:35 Patient left the ED. sv Signatures: Haylee Barrios RN RN sv Anderson, Corey, MD MD cha Moreno, Amanda am2
--- NOTE | 2019-03-27 09:15 | EDPHYS ---
Physician Documentation [facility] [place], [place] Name: Paola Ji Age: 64 yrs Sex: Female : 1955 Arrival Date: 03/27/2019 Time: 08:33 Bed 6 Private MD: ED Physician James Hoskins HPI: 03/27 09:10 This 64 yrs old Black Female presents to ER via Wheelchair with complaints of Leg Pain. farhan 09:10 The patient presents with decreased range of motion, pain. The complaints affect the farhan lateral aspect of right thigh, right hamstring, right calf, medial aspect of right thigh and medial aspect of right calf. Context: The problem was sustained at an unknown site. Onset: The symptoms/episode began/occurred 2 day(s) ago. Modifying factors: The symptoms are alleviated by remaining still, the symptoms are aggravated by nothing. movement. Associated signs and symptoms: The patient has no apparent associated signs or symptoms. Severity of symptoms: At their worst the symptoms were mild, moderate, in the emergency department the symptoms are unchanged. The patient has not experienced similar symptoms in the past. Historical: - Allergies: 08:42 No Known Allergies; sv - Home Meds: 08:42 amlodipine 5 mg oral tab once daily [Active]; carvedilol 12.5 mg oral tab 2 times per sv day [Active]; hydrochlorothiazide 12.5 mg oral tab once daily [Active]; lovastatin 20 mg Oral tab 1 tab once daily [Active]; - PMHx: 08:42 Hypertension; CHF; sv - PSHx: 08:42 Appendectomy; sv - Immunization history:: Adult Immunizations up to date. - Ebola Screening: : No symptoms or risks identified at this time. - Family history:: not pertinent. ROS: 09:10 Constitutional: Negative for fever, chills, and weight loss, Eyes: Negative for injury, farhan pain, redness, and discharge, ENT: Negative for injury, pain, and discharge, Neck: Negative for injury, pain, and swelling, Cardiovascular: Negative for chest pain, palpitations, and edema, Respiratory: Negative for shortness of breath, cough, wheezing, and pleuritic chest pain, Abdomen/GI: Negative for abdominal pain, nausea, vomiting, diarrhea, and constipation, : Negative for injury, bleeding, discharge, and swelling, MS/Extremity: Negative for injury and deformity, Skin: Negative for injury, rash, and discoloration, Neuro: Negative for headache, weakness, numbness, tingling, and seizure, Psych: Negative for depression, anxiety, suicide ideation, homicidal ideation, and hallucinations, Allergy/Immunology: Negative for hives, rash, and allergies, Endocrine: Negative for neck swelling, polydipsia, polyuria, polyphagia, and marked weight changes, Hematologic/Lymphatic: Negative for swollen nodes, abnormal bleeding, and unusual bruising. 09:10 Back: Positive for decreased range of motion, pain at rest, radiated pain, of the right low back. Exam: 09:10 Constitutional: This is a well developed, well nourished patient who is awake, alert, farhan and in no acute distress. Head/Face: Normocephalic, atraumatic. Eyes: Pupils equal round and reactive to light, extra-ocular motions intact. Lids and lashes normal. Conjunctiva and sclera are non-icteric and not injected. Cornea within normal limits. Periorbital areas with no swelling, redness, or edema. ENT: Nares patent. No nasal discharge, no septal abnormalities noted. Tympanic membranes are normal and external auditory canals are clear. Oropharynx with no redness, swelling, or masses, exudates, or evidence of obstruction, uvula midline. Mucous membranes moist. Neck: Trachea midline, no thyromegaly or masses palpated, and no cervical lymphadenopathy. Supple, full range of motion without nuchal rigidity, or vertebral point tenderness. No Meningismus. Chest/axilla: Normal chest wall appearance and motion. Nontender with no deformity. No lesions are appreciated. Cardiovascular: Regular rate and rhythm with a normal S1 and S2. No gallops, murmurs, or rubs. Normal PMI, no JVD. No pulse deficits. Respiratory: Lungs have equal breath sounds bilaterally, clear to auscultation and percussion. No rales, rhonchi or wheezes noted. No increased work of breathing, no retractions or nasal flaring. Abdomen/GI: Soft, non-tender, with normal bowel sounds. No distension or tympany. No guarding or rebound. No evidence of tenderness throughout. Skin: Warm, dry with normal turgor. Normal color with no rashes, no lesions, and no evidence of cellulitis. MS/ Extremity: Pulses equal, no cyanosis. Neurovascular intact. Full, normal range of motion. Neuro: Awake and alert, GCS 15, oriented to person, place, time, and situation. Cranial nerves II-XII grossly intact. Motor strength 5/5 in all extremities. Sensory grossly intact. Cerebellar exam normal. Normal gait. Psych: Awake, alert, with orientation to person, place and time. Behavior, mood, and affect are within normal limits. 09:10 Back: pain, that is mild, that is moderate, ROM is painful, normal spinal alignment noted, CVA tenderness, is absent, muscle spasm, is not present. Vital Signs: 08:42 BP 144 / 95; Pulse 85; Resp 16; Temp 98.3; Pulse Ox 100% ; Weight 75.75 kg; Height 5 sv ft. 6 in. (167.64 cm); Pain 9/10; 08:42 Body Mass Index 26.95 (75.75 kg, 167.64 cm) sv MDM: 08:35 Patient medically screened. [facility] 09:13 Data reviewed: vital signs, nurses notes. farhan Administered Medications: 09:34 Drug: Motrin 400 mg Route: PO; sv 09:34 Follow up: Response: Medication administered at discharge. sv 09:34 Drug: Valium 5 mg Route: PO; sv 09:34 Follow up: Response: Medication administered at discharge. sv 09:34 Drug: Decadron 2 mg Route: PO; sv 09:34 Follow up: Response: Medication administered at discharge. sv Disposition: 03/27/19 09:14 Discharged to Home. Impression: Sciatica, right side, Low back pain. - Condition is Stable. - Discharge Instructions: Back Pain, Adult, Chronic Back Pain, Musculoskeletal Pain, Back Injury Prevention, [id number], Back Pain, Adult, [id number]. - Prescriptions for Tylenol- Codeine #3 300-30 mg Oral Tablet - take 2 tablets by ORAL route every 6 hours As needed; 26 tablet. Valium 2 mg Oral Tablet - take 1 tablet by ORAL route every 8 hours As needed; 20 tablet. Medrol (Lj) 4 mg Oral Tablets, Dose Pack - take 1 tablet by ORAL route as directed - follow package instructions; 1 packet. Motrin IB 200 mg Oral Tablet - take 2 tablet by ORAL route every 6 hours As needed as needed with food; 30 tablet. - Medication Reconciliation Form, Thank You Letter, Antibiotic Education, Prescription Opioid Use form. - Follow up: Private Physician; When: 2 - 3 days; Reason: Recheck today's complaints, Continuance of care, Re-evaluation by your physician. - Problem is new. - Symptoms have improved. Signatures: Haylee Barrios RN RN James Callaway MD MD cha Corrections: (The following items were deleted from the chart) 09:35 09:14 03/27/2019 09:14 Discharged to Home. Impression: Sciatica, right side; Low back sv pain. Condition is Stable. Forms are Medication Reconciliation Form, Thank You Letter, Antibiotic Education, Prescription Opioid Use. Follow up: Private Physician; When: 2 - 3 days; Reason: Recheck today's complaints, Continuance of care, Re-evaluation by your physician. Problem is new. Symptoms have improved. farhan
[2019-03-27] MEDS ORDERED: IBUPROFEN 400 MG TAB ONE (09:22)
[2019-03-27] MEDS ORDERED: DIAZEPAM 2 MG TABLET ONE (09:22)
[2019-03-27] MEDS ORDERED: dexAMETHasone 4 MG TAB ONE (09:23)
[2019-03-27 09:41] VITALS: BP 144/95; TEMP 98.3; O2SAT 100
== END 2019-03-27 09:35 | disposition home or self-care (01) ==
LOC: ER 08:28
DX: M54.31 Sciatica, right side (principal); I10 Essential (primary) hypertension; I50.9 Heart failure, unspecified
CPT/HCPCS: 99283

== ENCOUNTER 2019-06-23 15:53 | Emergency (ER) | payer OTHER ==
[~2019-06-23 15:53] MED LIST: DIPHENHYDRAMINE 50 MG/ML VIAL ONE; EPINEPHRINE INH 0.5 ML VIAL IH ONE; EPINEPHRINE/PF 1 MG/ML AMP ONE; FAMOTIDINE 20 MG/2 ML VIAL IV ONE; METHYLPREDNISOLONE 125 MG INJ ONE; NA CHLORIDE 0.9% 1,000 ML ONE
--- OUTSIDE RECORDS SUMMARY | 2019-06-23 15:55 | XMS REPORT ---
:1955 [facility] Address [address] [place] [address] Dr. Hurley [address] [place] [id number] Care Team Providers Name Role Phone Unavailable Unavailable Unavailable Problems This patient has no known problems. Allergies, Adverse Reactions, Alerts This patient has no known allergies or adverse reactions. Medications This patient has no known medications.
[2019-06-23] MEDS ORDERED: METHYLPREDNISOLONE 125 MG INJ ONE (17:08)
[2019-06-23] MEDS ORDERED: FAMOTIDINE 20 MG/2 ML VIAL IV ONE (17:08)
--- NOTE | 2019-06-23 17:32 | ER ---
Nurse's Notes [facility] Name: Paola Ji Age: 64 yrs Sex: Female : 1955 Arrival Date: 06/23/2019 Time: 15:54 Bed 28 Private MD: Diagnosis: Urticaria, unspecified;Hypertension Presentation: 06/23 16:20 Presenting complaint: Patient states: reports intermittent "hives and swelling" x 2 sr5 weeks. Also concerned about elevated BP, normal systolic report 150. Transition of care: patient was not received from another setting of care. Onset: The symptoms/episode began/occurred suddenly. Anaphylaxis evaluation, no signs or symptoms of anaphylaxis were noted. Onset of symptoms was June 07, 2019. Care prior to arrival: None. 16:20 Method Of Arrival: Ambulatory sr5 16:22 Acuity: JAIMEE 3 sr5 16:54 Risk Assessment: Do you want to hurt yourself or someone else? Patient reports no rb1 desire to harm self or others. Initial Sepsis Screen: Does the patient meet any 2 criteria? No. Patient's initial sepsis screen is negative. Does the patient have a suspected source of infection? No. Patient's initial sepsis screen is negative. Triage Assessment: 16:22 General: Appears in no apparent distress. Behavior is calm, cooperative. Pain: Denies sr5 pain. Historical: - Allergies: 16:22 No Known Allergies; sr5 - Home Meds: 16:45 amlodipine 5 mg tab once daily [Active]; carvedilol 12.5 mg Oral tab 2 times per day rb1 [Active]; hydrochlorothiazide 12.5 mg Oral tab once daily [Active]; lovastatin 20 mg Oral tab 1 tab once daily [Active]; - PMHx: 16:22 CHF; Hypertension; sr5 - PSHx: 16:45 Appendectomy; rb1 - Immunization history:: Flu vaccine is up to date. - Social history:: Smoking status: Patient uses tobacco products, denies chronic smoking, but will smoke occasionally. - Ebola Screening: : Patient negative for fever greater than or equal to 101.5 degrees Fahrenheit, and additional compatible Ebola Virus Disease symptoms. - Family history:: not pertinent. - Hospitalizations: : No recent hospitalization is reported. Screenin:45 Abuse screen: Denies threats or abuse. Nutritional screening: No deficits noted. rb1 Tuberculosis screening: No symptoms or risk factors identified. Fall Risk None identified. Assessment: 16:45 General: Appears in no apparent distress. comfortable, Behavior is calm, cooperative, rb1 Denies fever. Pain: Denies pain. Neuro: Level of Consciousness is awake, alert, obeys commands, Oriented to person, place, time, situation. Cardiovascular: Capillary refill < 3 seconds is brisk in bilateral fingers. Respiratory: Airway is patent Respiratory effort is even, unlabored, Respiratory pattern is regular, symmetrical. Respiratory: Reports shortness of breath on exertion. GI: No signs and/or symptoms were reported involving the gastrointestinal system. : No signs and/or symptoms were reported regarding the genitourinary system. Derm: Skin is dry, Skin is normal, Skin temperature is warm. Musculoskeletal: Range of motion: intact in all extremities, Reports hives and swelling in her hands and face. 17:36 Reassessment: Patient appears in no apparent distress at this time. Patient and/or rb1 family updated on plan of care and expected duration. Pain level reassessed. Patient is alert, oriented x 3, equal unlabored respirations, skin warm/dry/pink. Patient denies pain at this time. Vital Signs: 16:22 BP 188 / 103; Pulse 97; Resp 18; Temp 97.9; Pulse Ox 100% ; Weight 74.84 kg (R); Height sr5 5 ft. 6 in. (167.64 cm); Pain 0/10; 16:54 BP 175 / 96; Pulse 92; Resp 17; Pulse Ox 98% on R/A; Pain 0/10; rb1 17:37 BP 198 / 98; Pulse 86; Resp 19; Pulse Ox 99% ; Pain 0/10; rb1 16:22 Body Mass Index 26.63 (74.84 kg, 167.64 cm) sr5 ED Course: 15:54 Patient arrived in ED. rg4 16:21 Triage completed. sr5 16:22 Arm band placed on right wrist. sr5 16:45 Trupti Oneil, RN is Primary Nurse. rb1 16:45 Patient has correct armband on for positive identification. Bed in low position. Call rb1 light in reach. Side rails up X 1. Pulse ox on. NIBP on. 16:53 Tripp Bernardo MD is Attending Physician. rn 17:14 Inserted saline lock: 22 gauge in left antecubital area, using aseptic technique. rb1 17:47 No provider procedures requiring assistance completed. IV discontinued, intact, rb1 bleeding controlled, No redness/swelling at site. Pressure dressing applied. Administered Medications: 17:17 Drug: SOLU-Medrol 125 mg Route: IVP; Site: left antecubital; rb1 17:35 Follow up: Response: No adverse reaction rb1 17:17 Drug: Pepcid 20 mg Route: IVP; Site: left antecubital; rb1 17:35 Follow up: Response: No adverse reaction rb1 Outcome: 17:31 Discharge ordered by MD. rn 17:52 Discharged to home ambulatory. rb1 17:52 Condition: stable 17:52 Discharge instructions given to patient, Instructed on discharge instructions, follow up and referral plans. medication usage, Demonstrated understanding of instructions, follow-up care, medications, Prescriptions given X 1. 17:53 Patient left the ED. rb1 Signatures: Tripp Bernardo MD MD rn Barber, Rebecca RN RN rb1 De Singh RN RN sr5 Carolina Arias rg4 Corrections: (The following items were deleted from the chart) 16:23 16:20 Acuity: JAIMEE 4 sr5 sr5
--- NOTE | 2019-06-23 17:33 | EDPHYS ---
Physician Documentation [facility] Name: Paola Ji Age: 64 yrs Sex: Female : 1955 Arrival Date: 06/23/2019 Time: 15:54 Bed 28 Private MD: ED Physician Tripp Bernardo HPI: 06/23 17:18 This 64 yrs old Black Female presents to ER via Ambulatory with complaints of Hives, rn High Blood Pressure. 17:18 The patient's rash thought to be caused by an unknown cause. The rash is located on the rn body diffusely. The rash can be described as urticarial. Onset: The symptoms/episode began/occurred 2 week(s) ago. Severity of symptoms: At their worst the symptoms were mild in the emergency department the symptoms are unchanged. The patient has not experienced similar symptoms in the past. Reports rash, diffuse, began 2 weeks ago, intermittent, itchy, no new medication or new exposure. Also has noted higher blood pressure than normal, no chest pain/abd pain/vomiting/diarrhea/focal neurological problem.. Historical: - Allergies: 16:22 No Known Allergies; sr5 - Home Meds: 16:45 amlodipine 5 mg tab once daily [Active]; carvedilol 12.5 mg Oral tab 2 times per day rb1 [Active]; hydrochlorothiazide 12.5 mg Oral tab once daily [Active]; lovastatin 20 mg Oral tab 1 tab once daily [Active]; - PMHx: 16:22 CHF; Hypertension; sr5 - PSHx: 16:45 Appendectomy; rb1 - Immunization history:: Flu vaccine is up to date. - Social history:: Smoking status: Patient uses tobacco products, denies chronic smoking, but will smoke occasionally. - Ebola Screening: : Patient negative for fever greater than or equal to 101.5 degrees Fahrenheit, and additional compatible Ebola Virus Disease symptoms. - Family history:: not pertinent. - Hospitalizations: : No recent hospitalization is reported. ROS: 17:18 Constitutional: Negative for fever, chills, and weight loss, Eyes: Negative for injury, rn pain, redness, and discharge, Neck: Negative for injury, pain, and swelling, Cardiovascular: Negative for chest pain, palpitations, and edema, Respiratory: Negative for shortness of breath, cough, wheezing, and pleuritic chest pain, Abdomen/GI: Negative for abdominal pain, nausea, vomiting, diarrhea, and constipation, MS/Extremity: Negative for injury and deformity, Skin: + rash and itchy Neuro: Negative for headache, weakness, numbness, tingling, and seizure. Exam: 17:18 Constitutional: This is a well developed, well nourished patient who is awake, alert, rn and in no acute distress. Head/Face: Normocephalic, atraumatic. Eyes: Pupils equal round and reactive to light, extra-ocular motions intact. Lids and lashes normal. Conjunctiva and sclera are non-icteric and not injected. Cornea within normal limits. Periorbital areas with no swelling, redness, or edema. ENT: MMM, no oral swelling or stridor Neck: Trachea midline, no thyromegaly or masses palpated, and no cervical lymphadenopathy. Supple, full range of motion without nuchal rigidity, or vertebral point tenderness. No Meningismus. Cardiovascular: Regular rate and rhythm. No pulse deficits. Respiratory: No increased work of breathing, no retractions or nasal flaring. Abdomen/GI: soft, non-tender MS/ Extremity: Pulses equal, no cyanosis. Neurovascular intact. Full, normal range of motion. Equal circumference. Neuro: Awake and alert, GCS 15, oriented to person, place, time, and situation. Cranial nerves II-XII grossly intact. Motor strength 5/5 in all extremities. Sensory grossly intact. Cerebellar exam normal. Vital Signs: 16:22 BP 188 / 103; Pulse 97; Resp 18; Temp 97.9; Pulse Ox 100% ; Weight 74.84 kg (R); Height sr5 5 ft. 6 in. (167.64 cm); Pain 0/10; 16:54 BP 175 / 96; Pulse 92; Resp 17; Pulse Ox 98% on R/A; Pain 0/10; rb1 17:37 BP 198 / 98; Pulse 86; Resp 19; Pulse Ox 99% ; Pain 0/10; rb1 16:22 Body Mass Index 26.63 (74.84 kg, 167.64 cm) sr5 MDM: 16:53 Patient medically screened. rn 17:18 Differential diagnosis: allergic reaction. Differential diagnosis: urticaria. Data rn reviewed: vital signs, nurses notes. Counseling: I had a detailed discussion with the patient and/or guardian regarding: the historical points, exam findings, and any diagnostic results supporting the discharge/admit diagnosis, the need for outpatient follow up, to return to the emergency department if symptoms worsen or persist or if there are any questions or concerns that arise at home. Response to treatment: the patient's symptoms have mildly improved after treatment. 17:23 Special discussion: I discussed with the patient/guardian in detail that at this point rn there is no indication for admission to the hospital. It is understood, however, that if the symptoms persist or worsen the patient needs to return immediately for re-evaluation. 06/23 17:00 Order name: IV Start; Complete Time: 17:17 rn Administered Medications: 17:17 Drug: SOLU-Medrol 125 mg Route: IVP; Site: left antecubital; rb1 17:35 Follow up: Response: No adverse reaction rb1 17:17 Drug: Pepcid 20 mg Route: IVP; Site: left antecubital; rb1 17:35 Follow up: Response: No adverse reaction rb1 Disposition: 06/23/19 17:31 Discharged to Home. Impression: Urticaria, unspecified, Hypertension. - Condition is Stable. - Discharge Instructions: Hives, Hypertension. - Prescriptions for Prednisone 20 mg Oral Tablet - take 3 tablet by ORAL route once daily for 5 days; 15 tablet. - Medication Reconciliation Form, Thank You Letter, Antibiotic Education, Prescription Opioid Use, Work release form form. - Follow up: Private Physician; When: As needed; Reason: Recheck today's complaints, Re-evaluation by your physician. - Problem is new. - Symptoms have improved. Signatures: Tripp Bernardo MD MD rn Barber, Rebecca RN RN rb1 De Singh RN RN sr5 Corrections: (The following items were deleted from the chart) 17:53 17:31 06/23/2019 17:31 Discharged to Home. Impression: Urticaria, unspecified; rb1 Hypertension. Condition is Stable. Forms are Medication Reconciliation Form, Thank You Letter, Antibiotic Education, Prescription Opioid Use. Follow up: Private Physician; When: As needed; Reason: Recheck today's complaints, Re-evaluation by your physician. Problem is new. Symptoms have improved. rn
== END 2019-06-23 17:53 | disposition home or self-care (01) ==
LOC: ER 15:53
DX: L50.9 Urticaria, unspecified (principal); I10 Essential (primary) hypertension; I50.9 Heart failure, unspecified; Z72.0 Tobacco use
CPT/HCPCS: 96375; 96374; 99284; J0171; J1200; J7030; J2930 ×2

== ENCOUNTER 2019-07-02 22:42 | Emergency (ER) | payer OTHER ==
--- OUTSIDE RECORDS SUMMARY | 2019-07-02 22:44 | XMS REPORT ---
:1955 Author Organization [facility] Address [address] [place] [address] Dr. Hurley [address] [place] [id number] Care Team Providers Name Role Phone Unavailable Unavailable Unavailable Problems This patient has no known problems. Allergies, Adverse Reactions, Alerts This patient has no known allergies or adverse reactions. Medications This patient has no known medications.
[2019-07-02 23:44] LABS: Absolute Lymphocytes (CBC) 4.3 K/uL (0.7-4.9); Hematocrit 44.9 % (36.0-45.0); Lymphocytes % 61.2 % (15.3-44.8); MPV 7.6 fL (7.6-11.3); RBC Red Blood Cell Count 5.09 M/uL (3.86-4.86)
[2019-07-02 23:53] LABS: BUN Blood Urea Nitrogen 11 mg/dL (7-18); Bicarbonate 28 mmol/L (21-32); Glucose Level 95 mg/dL (74-106); Potassium 3.8 mmol/L (3.5-5.1); Sodium Level 135 mmol/L (136-145)
[2019-07-03] MEDS ORDERED: METHYLPREDNISOLONE 125 MG INJ ONE (00:03)
[2019-07-03] MEDS ORDERED: DIPHENHYDRAMINE 50 MG/ML VIAL ONE (00:03)
[2019-07-03] MEDS ORDERED: NA CHLORIDE 0.9% 500 ML ONE (00:03)
[2019-07-03] MEDS ORDERED: FAMOTIDINE 20 MG/2 ML VIAL IV ONE (00:03)
[2019-07-03 00:37] LABS: Blood Morphology Comment NOT SEEN (NOT SEEN); Platelet Estimate ADEQ
--- NOTE | 2019-07-03 02:07 | ER ---
Nurse's Notes [facility] Name: Paola Ji Age: 64 yrs Sex: Female : 1955 Arrival Date: 07/02/2019 Time: 22:43 Bed 18 Private MD: Diagnosis: Allergy status to other drugs, medicaments and biological substances status Presentation: 07/02 22:56 Presenting complaint: Patient states: facial, hand, leg and feet itching. Pt states dm5 that the dosage on her carvedilol was changed and this happened the last time the dosage was increased. Lower lip and right hand swelling noted. Transition of care: patient was not received from another setting of care. Onset: The symptoms/episode began/occurred acutely, gradually, today. Anaphylaxis evaluation, beta peggy use lower lip and hand swelling. Onset of symptoms was July 02, 2019. 22:56 Method Of Arrival: Ambulatory 5 22:56 Acuity: JAIMEE 4 dm5 22:56 Care prior to arrival: None. pt took Benadryl at 0800 this morning but nothing since. dm5 23:15 Risk Assessment: Do you want to hurt yourself or someone else? Patient reports no iw desire to harm self or others. Initial Sepsis Screen: Does the patient meet any 2 criteria? No. Patient's initial sepsis screen is negative. Does the patient have a suspected source of infection? No. Patient's initial sepsis screen is negative. Triage Assessment: 23:00 General: Appears in no apparent distress. uncomfortable, Behavior is calm, cooperative. dm5 Pain: Denies pain. EENT: lower lip swelling.. Denies pain difficulty swallowing, feeling as though tongue and throat are swelling.. Neuro: No deficits noted. Cardiovascular: No deficits noted. Respiratory: Airway is patent Respiratory effort is even, unlabored, relaxed, Respiratory pattern is regular, symmetrical. Derm: swelling of lower lip, right hand. Historical: - Allergies: 23:11 No Known Allergies; dm5 - Home Meds: 23:00 amlodipine 5 mg tab once daily [Active]; carvedilol 12.5 mg Oral tab 2 times per day dm5 [Active]; hydrochlorothiazide 12.5 mg Oral tab once daily [Active]; lovastatin 20 mg Oral tab 1 tab once daily [Active]; - PMHx: 23:00 CHF; Hypertension; dm5 - PSHx: 23:00 Appendectomy; dm5 - Immunization history:: Adult Immunizations unknown. - Social history:: Smoking status: unknown. - Ebola Screening: : Patient negative for fever greater than or equal to 101.5 degrees Fahrenheit, and additional compatible Ebola Virus Disease symptoms Patient denies exposure to infectious person Patient denies travel to an Ebola-affected area in the 21 days before illness onset No symptoms or risks identified at this time. Screenin:14 Abuse screen: Denies threats or abuse. Denies injuries from another. Nutritional iw screening: No deficits noted. Tuberculosis screening: No symptoms or risk factors identified. Fall Risk None identified. Assessment: 23:13 General: Appears in no apparent distress. Behavior is calm, cooperative. Pain: Denies iw pain. Neuro: Level of Consciousness is awake, alert, obeys commands, Oriented to person, place, time, situation, Moves all extremities. Full function. Cardiovascular: Patient's skin is warm and dry. Respiratory: Airway Breath sounds are clear bilaterally. Derm: Skin is intact, is healthy with good turgor. Musculoskeletal: Range of motion: intact in all extremities. 07/03 01:20 Reassessment: Patient appears in no apparent distress at this time. Patient and/or iw family updated on plan of care and expected duration. Pain level reassessed. Patient is alert, oriented x 3, equal unlabored respirations, skin warm/dry/pink. Respiratory: Airway is patent Respiratory effort is even, unlabored. GI: No signs and/or symptoms were reported involving the gastrointestinal system. Derm: Skin is intact, is healthy with good turgor. Vital Signs: 07/02 23:00 BP 146 / 81; Pulse 86; Resp 18; Temp 97.7; Pulse Ox 97% on R/A; Weight 75.75 kg (R); dm5 Height 5 ft. 6 in. (167.64 cm); 23:00 Body Mass Index 26.95 (75.75 kg, 167.64 cm) dm5 ED Course: 22:43 Patient arrived in ED. cf2 22:59 Triage completed. dm5 23:00 Arm band placed on right wrist. Patient placed in an exam room, on a stretcher. 5 23:12 Pattie Louie, RN is Primary Nurse. iw 23:15 Patient has correct armband on for positive identification. iw 23:23 James Deutsch PA is PHCP. cp 23:23 Jean Soliman MD is Attending Physician. cp 23:31 Inserted saline lock: 20 gauge in left antecubital area, using aseptic technique. Blood jb5 collected. 07/03 02:00 No provider procedures requiring assistance completed. IV discontinued, intact, iw bleeding controlled, No redness/swelling at site. Pressure dressing applied. Administered Medications: 00:07 Drug: SOLU-Medrol 125 mg Route: IVP; Site: left antecubital; iw 00:50 Follow up: Response: No adverse reaction iw 00:07 Drug: Benadryl 50 mg Route: IVP; Site: left antecubital; iw 00:50 Follow up: Response: No adverse reaction iw 00:07 Drug: Pepcid 20 mg Route: IVP; Site: left antecubital; iw 01:00 Follow up: Response: No adverse reaction; Marked relief of symptoms iw 00:08 Drug: NS 0.9% 500 ml Route: IV; Rate: bolus; Site: left antecubital; iw Outcome: 01:52 Discharge ordered by MD. cp 02:00 Discharged to home ambulatory, with family. iw 02:00 Condition: good 02:00 Discharge instructions given to patient, family, Instructed on discharge instructions, follow up and referral plans. medication usage, Demonstrated understanding of instructions, follow-up care, medications, Prescriptions given X 3. 02:04 Patient left the ED. iw Signatures: Jeri Negrete RN RN dm5 Pattie Louie RN RN iw James Deutsch PA PA cp Broussard, Jennifer jb5 Cherelle Collado cf2
--- NOTE | 2019-07-03 02:09 | EDPHYS ---
Physician Documentation [facility] Name: Paola Ji Age: 64 yrs Sex: Female : 1955 Arrival Date: 07/02/2019 Time: 22:43 Bed 18 Private MD: ED Physician Jean Soliman HPI: 07/02 23:35 This 64 yrs old Black Female presents to ER via Ambulatory with complaints of Facial cp Swelling, Itching. 23:35 The patient presents with hoarse voice, itching, localized swelling, rash, that is cp diffuse. 23:35 Onset: The symptoms/episode began/occurred this morning. Possible causes: recent cp increase of hypertensive medication. 23:35 Associated signs and symptoms: Pertinent negatives: abdominal pain, Altered mental cp status chest pain, dysphagia, fever, shortness of breath, vomiting. At home the patient or guardian has treated the symptoms with took OTC Benadryl with last dose this morning that improved symptoms, but symptoms worsened this evening. Severity of symptoms: in the emergency department the symptoms are unchanged. The patient has experienced similar episodes in the past, a few times, when hypertensive medication was increased in the past. Historical: - Allergies: 23:11 No Known Allergies; dm5 - Home Meds: 23:00 amlodipine 5 mg tab once daily [Active]; carvedilol 12.5 mg Oral tab 2 times per day dm5 [Active]; hydrochlorothiazide 12.5 mg Oral tab once daily [Active]; lovastatin 20 mg Oral tab 1 tab once daily [Active]; - PMHx: 23:00 CHF; Hypertension; dm5 - PSHx: 23:00 Appendectomy; dm5 - Immunization history:: Adult Immunizations unknown. - Social history:: Smoking status: unknown. - Ebola Screening: : Patient negative for fever greater than or equal to 101.5 degrees Fahrenheit, and additional compatible Ebola Virus Disease symptoms Patient denies exposure to infectious person Patient denies travel to an Ebola-affected area in the 21 days before illness onset No symptoms or risks identified at this time. ROS: 23:40 Eyes: Negative for injury, pain, redness, and discharge. cp 23:40 Constitutional: Negative for body aches, chills, fever, poor PO intake. 23:40 ENT: Positive for swelling lower lip, Negative for difficulty swallowing, difficulty handling secretions. 23:40 Cardiovascular: Negative for chest pain, palpitations. 23:40 Respiratory: Negative for shortness of breath, wheezing. 23:40 Abdomen/GI: Negative for abdominal pain, vomiting, diarrhea, constipation. 23:40 Skin: Positive for rash. 23:40 Neuro: Negative for altered mental status, dizziness, headache, weakness. 23:40 All other systems are negative. Exam: 23:55 Constitutional: The patient appears in no acute distress, alert, awake, cp non-diaphoretic, non-toxic, well developed, well nourished. 23:55 Head/Face: Normocephalic, atraumatic. cp 23:55 Eyes: Periorbital structures: appear normal, Pupils: equal, round, and reactive to light and accomodation, Extraocular movements: intact throughout, Conjunctiva: normal, no exudate, no injection, Sclera: no appreciated abnormality, Lids and lashes: appear normal, bilaterally. 23:55 ENT: External ear(s): are unremarkable, Ear canal(s): are normal, clear, TM's: dullness, bilaterally, Nose: is normal, Mouth: Lips: lower lip, mild swelling, Oral mucosa: pink and intact, moist, Tongue: is normal, Posterior pharynx: is normal, airway is patent, no erythema, no exudate, Voice: is hoarse. 23:55 Neck: ROM/movement: is normal, is supple, without pain, no range of motions limitations, no nuchal rigidity. 23:55 Chest/axilla: Inspection: normal, Palpation: is normal, no crepitus, no tenderness. 23:55 Cardiovascular: Rate: normal, Rhythm: regular, Edema: mild bilateral hands, JVD: is not appreciated. 23:55 Respiratory: the patient does not display signs of respiratory distress, Respirations: normal, no use of accessory muscles, no retractions, no splinting, no tachypnea, labored breathing, is not present, Breath sounds: are clear throughout, no decreased breath sounds, no stridor, no wheezing. 23:55 Abdomen/GI: Inspection: abdomen appears normal, Palpation: abdomen is soft and non-tender, in all quadrants. 23:55 Back: pain, is absent, ROM is normal. 23:55 Skin: cellulitis, is not appreciated. 23:55 Neuro: Orientation: to person, place \T\ time. Mentation: is normal, Motor: moves all fours, strength is normal, Sensation: is normal, Gait: is steady, at a normal pace, without difficulty. Vital Signs: 23:00 BP 146 / 81; Pulse 86; Resp 18; Temp 97.7; Pulse Ox 97% on R/A; Weight 75.75 kg (R); dm5 Height 5 ft. 6 in. (167.64 cm); 23:00 Body Mass Index 26.95 (75.75 kg, 167.64 cm) dm5 MDM: 23:28 Patient medically screened. cp 07/03 01:50 Data reviewed: vital signs, nurses notes, lab test result(s), and as a result, I will cp discharge patient. 01:50 Differential diagnosis: anaphylaxis, angioedema, urticaria. Counseling: I had a cp detailed discussion with the patient and/or guardian regarding: the historical points, exam findings, and any diagnostic results supporting the discharge/admit diagnosis, lab results, the need for outpatient follow up, a family practitioner, to return to the emergency department if symptoms worsen or persist or if there are any questions or concerns that arise at home. Response to treatment: the patient's symptoms have markedly improved after treatment, and as a result, I will discharge patient. 07/02 23:29 Order name: CBC with Diff; Complete Time: :44 cp 07/03 01:44 Interpretation: Normal except: RBC 5.09; HGB 15.2; GUDELIA% 28.5; LYM% 61.2. cp 07/02 23:29 Order name: BMP; Complete Time: :44 cp 07/03 01:45 Interpretation: Normal except: NA 135. cp 07/02 23:46 Order name: Manual Differential; Complete Time: 01:44 EDMS 07/02 23:29 Order name: IV; Complete Time: 00:11 cp Administered Medications: 00:07 Drug: SOLU-Medrol 125 mg Route: IVP; Site: left antecubital; iw 00:50 Follow up: Response: No adverse reaction iw 00:07 Drug: Benadryl 50 mg Route: IVP; Site: left antecubital; iw 00:50 Follow up: Response: No adverse reaction iw 00:07 Drug: Pepcid 20 mg Route: IVP; Site: left antecubital; iw 01:00 Follow up: Response: No adverse reaction; Marked relief of symptoms iw 00:08 Drug: NS 0.9% 500 ml Route: IV; Rate: bolus; Site: left antecubital; Disposition: 07:03 Co-signature as Attending Physician, Jean Soliman MD Available for consultation at ps1 all times. Signing chart for administrative purposes. Not an endorsement of care. . Disposition: 07/03/19 01:52 Discharged to Home. Impression: Allergy status to other drugs, medicaments and biological substances status. - Condition is Stable. - Discharge Instructions: Allergies, Adult, Angioedema. - Prescriptions for Pepcid 20 mg Oral Tablet - take 1 tablet by ORAL route every 12 hours for 5 days; 10 tablet. Prednisone 20 mg Oral Tablet - take 2 tablet by ORAL route once daily for 5 days; 10 tablet. EpiPen 0.3 mg Injection auto- injector - inject 1 pen by INTRAMUSCULAR route one time As needed Inject into the outer portion of the thigh, through clothing if necessary. Indicated in the emergency treatment of allergic reactions; 1 Kit. - Medication Reconciliation Form, Thank You Letter, Antibiotic Education, Prescription Opioid Use form. - Follow up: Private Physician; When: 1 - 2 days; Reason: Recheck today's complaints. - Problem is new. - Symptoms have improved. Signatures: Dispatcher [employer] Jeri Chao, RN RN dm5 Pattie Louie RN RN iw James Deutsch PA PA Jean Moscoso MD MD ps1 Corrections: (The following items were deleted from the chart) 02:04 01:52 07/03/2019 01:52 Discharged to Home. Impression: Allergy status to other drugs, iw medicaments and biological substances status. Condition is Stable. Forms are Medication Reconciliation Form, Thank You Letter, Antibiotic Education, Prescription Opioid Use. Follow up: Private Physician; When: 1 - 2 days; Reason: Recheck today's complaints. Problem is new. Symptoms have improved. cp
== END 2019-07-03 02:04 | disposition home or self-care (01) ==
LOC: ER 22:42
DX: R21 Rash and other nonspecific skin eruption (principal); Z88.8 Allergy status to other drugs, medicaments and biological substances; I50.9 Heart failure, unspecified; I10 Essential (primary) hypertension
CPT/HCPCS: 85025; 80048; 36415; 96375; 96374; 99284; J1200; J7040; J2930

== ENCOUNTER 2022-08-06 16:24 | Emergency (ER) | payer OTHER ==
--- OUTSIDE RECORDS SUMMARY | 2022-08-06 16:28 | XMS REPORT | Continuity of Care Document ---
:1955 Author Organization [facility] t Address [address] [place] [address] Care Team Providers Name Role Phone MYRNA GRULLON Primary Care Physician Unavailable HENRIQUE DE LA TORRE Attending Clinician Unavailable Henrique De La Torre MD Attending Clinician Pob, [facility] Main Attending Clinician Unavailable Doctor Unassigned, [place] Attending Clinician Unavailable Payers Payer Name Policy Type Policy Number Effective Date Expiration Date S pardeep MICHAEL/JADEP [id number] 2019 MEDICARE ADVANTAGE 00:00:00 Problems This patient has no known problems. Allergies, Adverse Reactions, Alerts Allergy Allergy Status Severity Reaction(s) Onset Inactive Treating Comm ents Source Name Type Date Date Clinician NO KNOWN Drug Active Univers ALLERGIE Class ity of S [facility] Social History Social Habit Start Date Stop Date Quantity Comments Source History of Cigarette Smoker Universi ty of tobacco use [facility] Sex Assigned At Universit y of [facility] Exposure to Not sure University of SARS-CoV-2 [facility] (event) [place] Tobacco use and 2020-06-08 2020-06-08 Never used Universit y of exposure 00:00:00 00:00:[address] [facility] Tobacco Comment 2018-10-08 2018-10-08 2 Ciggs a week Unive rsity of 00:00:00 00:00:[address] [facility] Smoking Status Start Date Stop Date Source Current some day smoker 2020-06-08 00:00:00 [address] of [facility] Medications Ordered Filled Start Stop Current Ordering Indication Dosage Frequency Signature Comments Components Source Medication Medication Date Date Medication? Clinician (SIG) Name Name hydroCHLORO 2020-0 Yes [id number] TAKE 1 Univers thiazide 2-07 CAPSULE BY ity o f 12.5 mg 00:00: MOUTH [place] capsule 00 EVERY DAY Medical Branch AMLODIPINE 2020-1 Yes [id number] TAKE 1 Univers 5 mg tablet 2-17 TABLET BY ity of 00:00: MOUTH [place] 00 EVERY DAY Medical Branch CARVEDILOL 2020- Yes [id number] TAKE 1 Univers 12.5 mg 2-17 TABLET BY ity of tablet 00:00: MOUTH [place] 00 TWICE A Medical DAY WITH Branch MEALS AMLODIPINE 2019- Yes [id number] TAKE 1 Univers 5 mg tablet 2-17 TABLET BY ity of 00:00: MOUTH [place] 00 EVERY DAY Medical Branch CARVEDILOL 2020- Yes [id number] TAKE 1 Univers 12.5 mg 2-17 TABLET BY ity of tablet 00:00: MOUTH [place] 00 TWICE A Medical DAY WITH Branch MEALS atorvastati 2019- Yes 20mg Take 1 Univ ers n 20 mg 2-16 tablet by ity of tablet 00:00: mouth at [place] 00 bedtime. Medical Branch atorvastati 2019- Yes 20mg Take 1 Univ ers n 20 mg 2-16 tablet by ity of tablet 00:00: mouth at [place] 00 bedtime. Medical Branch atorvastati 2020 Yes 20mg Take 1 Univ ers n 20 mg 2-16 tablet by ity of tablet 00:00: mouth at [place] 00 bedtime. Medical Branch hydroCHLORO 2020-1 Yes [id number] TAKE ONE Univers thiazide 2-11 CAPSULE BY ity o f 12.5 mg 00:00: MOUTH [place] capsule 00 EVERY DAY Medical Branch hydroCHLORO 2020-1 Yes [id number] TAKE ONE Univers thiazide 2-11 CAPSULE BY ity o f 12.5 mg 00:00: MOUTH [place] capsule 00 EVERY DAY Medical Branch hydroCHLORO 2020-1 Yes [id number] TAKE ONE Univers thiazide 2-11 CAPSULE BY ity o f 12.5 mg 00:00: MOUTH [place] capsule 00 EVERY DAY Medical Branch hydroCHLORO 2020-1 Yes [id number] TAKE ONE Univers thiazide 2-11 CAPSULE BY ity o f 12.5 mg 00:00: MOUTH [place] capsule 00 EVERY DAY Medical Branch hydroCHLORO 2020-1 Yes [id number] TAKE ONE Univers thiazide 2-11 CAPSULE BY ity o f 12.5 mg 00:00: MOUTH [place] capsule 00 EVERY DAY Medical Branch hydroCHLORO 2019-06- No [id number] TAKE ONE Univers thiazide 08-09 CAPSULE BY ity of 12.5 mg 00:00: 00:00 MOUTH [place] capsule 00 :00 EVERY DAY Medical Branch amLODIPine 2019-06- No [id number] 5mg Take 1 Univers 5 mg tablet 08-09 tablet by it y of 00:00: 05:59 mouth [place] 00 :00 daily for Medical 30 days. Branch carvediloL 2019-06- No [id number] 12.5mg Take 1 Univers 12.5 mg 08-09 tablet by ity of tablet 00:00: 05:59 mouth 2 [place] 00 :00 (two) Medical times [place] daily with meals for 30 days. lovastatin 2019-06- No [id number] 20mg Take 1 Univers 20 mg 08-09 tablet by ity of tablet 00:00: 05:59 mouth [place] 00 :00 daily for Medical 30 days. Branch amLODIPine 2019-06- No [id number] 5mg Take 1 Univers 5 mg tablet 08-09 tablet by it y of 00:00: 05:59 mouth [place] 00 :00 daily for Medical 30 days. Branch carvediloL 2019-06- No [id number] 12.5mg Take 1 Univers 12.5 mg 08-09 tablet by ity of tablet 00:00: 05:59 mouth 2 [place] 00 :00 (two) Medical times [place] daily with meals for 30 days. lovastatin 2019-06- No [id number] 20mg Take 1 Univers 20 mg 08-09 tablet by ity of tablet 00:00: 05:59 mouth [place] 00 :00 daily for Medical 30 days. Branch amLODIPine 2019-06- No [id number] 5mg Take 1 Univers 5 mg tablet 08-09 tablet by it y of 00:00: 05:59 mouth [place] 00 :00 daily for Medical 30 days. Branch carvediloL 2019-06- No [id number] 12.5mg Take 1 Univers 12.5 mg 08-09 tablet by ity of tablet 00:00: 05:59 mouth 2 [place] 00 :00 (two) Medical times [place] daily with meals for 30 days. lovastatin 2019-2020- No [id number] 20mg Take 1 Univers 20 mg 2-11 01-11 tablet by ity of tablet 00:00: 05:59 mouth [place] 00 :00 daily for Medical 30 days. Branch amLODIPine 2019-06- No [id number] 5mg Take 1 Univers 5 mg tablet 2- 12-17 tablet by it y of 00:00: 00:00 mouth [place] 00 :00 daily for Medical 30 days. Branch carvediloL 2019-06- No [id number] 12.5mg Take 1 Univers 12.5 mg 2- 12-17 tablet by ity of tablet 00:00: 00:00 mouth 2 [place] 00 :00 (two) Medical times [place] daily with meals for 30 days. amLODIPine 2019-2019- No [id number] 5mg Take 1 Univers 5 mg tablet 2- 12-17 tablet by it y of 00:00: 00:00 mouth [place] 00 :00 daily for Medical 30 days. Branch carvediloL 2019-06- No [id number] 12.5mg Take 1 Univers 12.5 mg 2- 12-17 tablet by ity of tablet 00:00: 00:00 mouth 2 [place] 00 :00 (two) Medical [facility] daily with meals for 30 days. lovastatin 2019-06- No [id number] 20mg Take 1 Univers 20 mg 2- 12-16 tablet by ity of tablet 00:00: 00:00 mouth [place] 00 :00 daily for Medical 30 days. Branch lovastatin 2020-0 Yes 20mg Take 20 mg U nivers 20 mg 2-28 by mouth ity of tablet 00:00: daily. [place] 00 Medical Branch lovastatin 2020-0 Yes 20mg Take 20 mg U nivers 20 mg 2-28 by mouth ity of tablet 00:00: daily. [place] 00 Medical Branch lovastatin 2020-0 2020- No 20mg Take 20 mg Univers 20 mg 2-28 12-11 by mouth ity of tablet 00:00: 00:00 daily. [place] 00 :00 Medical Branch lovastatin 2019-0 2020- No 20mg Take 20 mg Univers 20 mg 2-28 12-11 by mouth ity of tablet 00:00: 00:00 daily. [place] 00 :00 Medical Branch hydroCHLORO 2019-0 Yes [id number] TAKE ONE Univers thiazide 9-11 CAPSULE BY ity o f 12.5 mg 00:00: MOUTH [place] capsule 00 EVERY DAY Medical Branch hydroCHLORO 2019-0 Yes [id number] TAKE ONE Univers thiazide 9-11 CAPSULE BY ity o f 12.5 mg 00:00: MOUTH [place] capsule 00 EVERY DAY Medical Branch hydroCHLORO 2018-0 Yes [id number] TAKE ONE Univers thiazide 9-11 CAPSULE BY ity o f 12.5 mg 00:00: MOUTH [place] capsule 00 EVERY DAY Medical Branch hydroCHLORO 2018-0 2020- No [id number] TAKE ONE Univers thiazide 9-11 12-11 CAPSULE BY ity of 12.5 mg 00:00: 00:00 MOUTH [place] capsule 00 :00 EVERY DAY Medical Branch hydroCHLORO 2018-0 2020- No [id number] TAKE ONE Univers thiazide 9-11 12-11 CAPSULE BY ity of 12.5 mg 00:00: 00:00 MOUTH [place] capsule 00 :00 EVERY DAY Medical Branch amLODIPine 0 Yes [id number] 5mg Take 1 U nivers 5 mg tablet 9-06 tablet by ity of 00:00: mouth [place] 00 daily. Medical Branch amLODIPine Yes [id number] 5mg Take 1 U nivers 5 mg tablet 9-06 tablet by ity of 00:00: mouth [place] 00 daily. Medical Branch amLODIPine 0 Yes [id number] 5mg Take 1 U nivers 5 mg tablet 9-06 tablet by ity of 00:00: mouth [place] 00 daily. Medical Branch amLODIPine 0 Yes [id number] 5mg Take 1 U nivers 5 mg tablet 9-06 tablet by ity of 00:00: mouth [place] 00 daily. Medical Branch amLODIPine 0 2020- No [id number] 5mg Take 1 Univers 5 mg tablet 9-06 12-11 tablet by it y of 00:00: 00:00 mouth [place] 00 :00 daily. Medical Branch amLODIPine 2018-0 2020- No [id number] 5mg Take 1 Univers 5 mg tablet 9-06 12-11 tablet by it y of 00:00: 00:00 mouth [place] 00 :00 daily. Medical Branch carvedilol 2019-0 Yes [id number] 12.5mg Take 1 Univers 12.5 mg 8-28 tablet by ity of tablet 00:00: mouth 2 [place] 00 (two) Medical times Branch daily with meals. carvedilol 2018- Yes [id number] 12.5mg Take 1 Univers 12.5 mg 8-28 tablet by ity of tablet 00:00: mouth [place] (two) Medical times Branch daily with meals. carvedilol Yes [id number] 12.5mg Take 1 Univers 12.5 mg 8-28 tablet by ity of tablet 00:00: mouth [place] (two) Medical times Branch daily with meals. carvedilol Yes [id number] 12.5mg Take 1 Univers 12.5 mg 8-28 tablet by ity of tablet 00:00: mouth [place] (two) Medical times Branch daily with meals. carvedilol Yes [id number] 12.5mg Take 1 Univers 12.5 mg 8-28 tablet by ity of tablet 00:00: mouth [place] (two) Medical times Branch daily with meals. carvedilol Yes [id number] 12.5mg Take 1 Univers 12.5 mg 8-28 tablet by ity of tablet 00:00: mouth [place] (two) Medical times Branch daily with meals. carvedilol 2020- No [id number] 12.5mg Take 1 Univers 12.5 mg 8-28 12-11 tablet by ity of tablet 00:00: 00:00 mouth 2 [place] 00 :00 (two) Medical times Branch daily with meals. carvedilol 2020- No [id number] 12.5mg Take 1 Univers 12.5 mg 8-28 12-11 tablet by ity of tablet 00:00: 00:00 mouth 2 [place] 00 :00 (two) Medical times Branch daily with meals. amLODIPine Yes [id number] TAKE 1 U nivers 5 mg tablet 4-01 TABLET BY ity of 00:00: MOUTH [place] EVERY DAY Medical Branch amLODIPine Yes [id number] TAKE 1 U nivers 5 mg tablet 4-01 TABLET BY ity of 00:00: MOUTH [place] EVERY DAY Medical Branch amLODIPine Yes [id number] TAKE 1 U nivers 5 mg tablet 4-01 TABLET BY ity of 00:00: MOUTH [place] EVERY DAY Medical Branch carvedilol Yes [id number] TAKE 1 U nivers 6.25 mg 4-01 TABLET BY ity of tablet 00:00: MOUTH [place] 00 TWICE A Medical DAY Branch amLODIPine 2019- No [id number] TAKE 1 Univers 5 mg tablet 4-03-04 TABLET BY it y of 00:00: 00:00 MOUTH [place] 00 :00 EVERY DAY Medical Branch carvedilol 2019- No [id number] TAKE 1 Univers 6.25 mg 4-02-23 TABLET BY ity of tablet 00:00: 00:00 MOUTH [place] 00 :00 TWICE A Medical DAY Branch carvedilol 2019- No [id number] TAKE 1 Univers 6.25 mg 4-02-23 TABLET BY ity of tablet 00:00: 00:00 MOUTH [place] 00 :00 TWICE A Medical DAY Branch famotidine Yes [id number] TAKE 1 U nivers 20 mg 1-23 TABLET BY ity of tablet 00:00: MOUTH [place] 00 EVERY 12 Medical HOURS FOR Branch 10 DAYS famotidine Yes [id number] TAKE 1 U nivers 20 mg 1-23 TABLET BY ity of tablet 00:00: MOUTH [place] 00 EVERY 12 Medical HOURS FOR Branch 10 DAYS famotidine Yes [id number] TAKE 1 U nivers 20 mg 1-23 TABLET BY ity of tablet 00:00: MOUTH [place] 00 EVERY 12 Medical HOURS FOR Branch 10 DAYS famotidine Yes [id number] TAKE 1 U nivers 20 mg 1-23 TABLET BY ity of tablet 00:00: MOUTH [place] 00 EVERY 12 Medical HOURS FOR Branch 10 DAYS famotidine Yes [id number] TAKE 1 U nivers 20 mg 1-23 TABLET BY ity of tablet 00:00: MOUTH [place] 00 EVERY 12 Medical HOURS FOR Branch 10 DAYS famotidine Yes [id number] TAKE 1 U nivers 20 mg 1-23 TABLET BY ity of tablet 00:00: MOUTH [place] 00 EVERY 12 Medical HOURS FOR Branch 10 DAYS famotidine Yes [id number] TAKE 1 U nivers 20 mg 1-23 TABLET BY ity of tablet 00:00: MOUTH [place] 00 EVERY 12 Medical HOURS FOR Branch 10 DAYS famotidine Yes [id number] TAKE 1 U nivers 20 mg 1-23 TABLET BY ity of tablet 00:00: MOUTH [place] 00 EVERY 12 Medical HOURS FOR Branch 10 DAYS famotidine 2019 Yes [id number] TAKE 1 U nivers 20 mg 1-23 TABLET BY ity of tablet 00:00: MOUTH [place] 00 EVERY 12 Medical HOURS FOR Branch 10 DAYS famotidine Yes [id number] TAKE 1 U nivers 20 mg 1-23 TABLET BY ity of tablet 00:00: MOUTH [place] 00 EVERY 12 Medical HOURS FOR Branch 10 DAYS famotidine Yes [id number] TAKE 1 U nivers 20 mg 1-23 TABLET BY ity of tablet 00:00: MOUTH [place] 00 EVERY 12 Medical HOURS FOR Branch 10 DAYS famotidine Yes [id number] TAKE 1 U nivers 20 mg 1-23 TABLET BY ity of tablet 00:00: MOUTH [place] 00 EVERY 12 Medical HOURS FOR Branch 10 DAYS famotidine Yes [id number] TAKE 1 U nivers 20 mg 1-23 TABLET BY ity of tablet 00:00: MOUTH [place] 00 EVERY 12 Medical HOURS FOR Branch 10 DAYS HYDROCHLORO 2018-0 Yes [id number] TAKE ONE Univers THIAZIDE 6-27 CAPSULE BY ity o f 12.5 mg 00:00: MOUTH [place] capsule 00 EVERY DAY Medical Branch HYDROCHLORO 2018-0 Yes [id number] TAKE ONE Univers THIAZIDE 6-27 CAPSULE BY ity o f 12.5 mg 00:00: MOUTH [place] capsule 00 EVERY DAY Medical Branch HYDROCHLORO 2018-0 Yes [id number] TAKE ONE Univers THIAZIDE 6-27 CAPSULE BY ity o f 12.5 mg 00:00: MOUTH [place] capsule 00 EVERY DAY Medical Branch HYDROCHLORO 2018-0 Yes [id number] TAKE ONE Univers THIAZIDE 6-27 CAPSULE BY ity o f 12.5 mg 00:00: MOUTH [place] capsule 00 EVERY DAY Medical Branch HYDROCHLORO 2018-0 2019- No [id number] TAKE ONE Univers THIAZIDE 6-27 09-10 CAPSULE BY ity of 12.5 mg 00:00: 00:00 MOUTH [place] capsule 00 :00 EVERY DAY Medical Branch Vital Signs Vital Name Observation Time Observation Value Comments Source Body weight 2020-06-08 17:41:00 80.06 kg [facility] BMI 2020-06-08 17:41:00 28.49 kg/m2 [facility] Oxygen saturation in 2020-06-08 17:41:00 100 /min University of Arterial blood by [facility] Pulse oximetry Branch Systolic blood 2020-06-08 17:41:00 129 mm[Hg] Univer sity of pressure [place] Medical [place] Diastolic blood 2020-06-08 17:41:00 79 mm[Hg] Unive rsity of pressure [facility] Heart rate 2020-06-08 17:41:00 79 /min Universi ty of [facility] Body height 2020-06-08 17:41:00 167.6 cm Universi ty [facility] Systolic blood 2019-02-23 13:48:00 137 mm[Hg] Univer sity of pressure [facility] Diastolic blood 2019-02-23 13:48:00 91 mm[Hg] Unive rsity of pressure [facility] Heart rate 2019-02-23 13:46:00 93 /min Universi ty [facility] Respiratory rate 2019-02-23 13:46:00 20 /min Univ ersity of [facility] Body height 2019-02-23 13:46:00 167.6 cm Universi ty [facility] Body weight 2019-02-23 13:46:00 76.204 kg Universi ty [facility] BMI 2019-02-23 13:46:00 27.12 kg/m2 Universi ty [facility] Oxygen saturation in 2019-02-23 13:46:00 98 /min University of Arterial blood by [facility] Pulse oximetry Branch Procedures Procedure Date / Time Performed Performing Clinician [facility] e ASSIGNMENT OF BENEFITS 2020-06-08 17:09:49 Doctor Unassigned, No [facility] Name [facility] PATIENT FINANCIAL 2019-02-23 13:24:08 Doctor Unassigned, No [facility] POLICY [facility] Encounters Start End Encounter Admission Attending Care Care Encounter Source Date/Time Date/Time Type Type Clinicians Facility Department ID 2022-08-04 2022-08-04 Outpatient SFA NAHOMI [id number] Herman 16:50:10 16:50:10 0206 F Darren 2021-06-13 2021-06-13 Outpatient Andry DE LA TORRE MEADY [facility] [id number] Univers 15:30:00 15:30:00 SENDIL itbrooke [facility] 2020-08-05 2020-08-05 Refkandace De La Torre [facility] [id number] Univers 00:00:00 00:00:00 Henrique Diaz [id number] ity [id number] [phone] Ma dicne nal 059 [facility] 2020-06-13 2020-06-13 [facility] [id number] Univers 00:00:00 00:00:00 Henrique Diaz [id number] [id number] [phone] [facility] nal 9 [facility] 2020-06-13 2020-06-13 [facility] [id number] Univers 00:00:00 00:00:00 Henrique Diaz [id number] it[id number] [phone] [address] 2020-06-08 2020-06-[address] Interpreter Dedra, Dejan Lab Main [facility] 1.2.8 40.114 [id number] Univers 12:12:18 12:27:18 Visit Henrique De La Torre 350.1.13. 10 it[id number] [phone] [facility] greer 353 [facility] 2020-06-08 2020-06-08 Office [facility] [id number] Univers 11:11:00 11:56:42 Visit Henrique Diaz [id number] [id number] [phone] [facility] 059 [facility] 2020-06-08 2020-06-08 Outpatient R BRITT [facility] [id number] Univers 11:30:00 11:30:00 SENDIL ity of [facility] 2020-06-08 2020-06-08 Orders Doctor ORTIZ [id number] Univers 00:00:00 00:00:00 Only Unassigned, [place] [id number] [facility] 4.2.7.2.686 [place] as [phone] [address] 2020-05-15 2020-05-15 Outpatient R BRITT [facility] [id number] Univers 11:00:00 11:00:00 SENDIL ity [facility] 2020-03-29 2020-03-29 [facility] [id number] Univers 09:30:00 09:30:00 SENDIL ity [facility] 2019-09-15 2019-09-15 Telemedici [facility] [id number] Univers 08:53:59 16:53:37 ne Visit Senddanielle Diaz [id number] it[id number] [phone] Ma dic[address] 2019-09-15 2019-09-15 [facility] [id number] Univers 09:00:00 09:00:00 SENDIL [place]brooke [facility] 2019-09-13 2019-09-13 [facility] [id number] Univers 11:00:00 11:00:00 SENDIL ity [facility] 2019-03-08 2019-03-08 [facility]ill [facility] [id number] Univers 00:00:00 00:00:00 Henrique Diaz [id number] it[id number] [phone] Ma dic[address] 2019-03-04 2019-03-04 [facility] [id number] Univers 00:00:00 00:00:00 Henrique Diaz [id number] it[id number] [phone] Ma dicne nal [address] [place] [address] 2019-02-23 2019-02-23 Office Britt [facility] [id number] Univers 08:26:01 09:04:19 Visit Henrique Diaz [id number] ity of [place] [id number] Nela [place] [phone] Ma dical nal 059 [facility] 2019-02-23 2019-02-23 Orders Doctor ANGEL [id number] Univers 00:00:00 00:00:00 Only Unassigned, [place] 350.1.13.10 ity of [place] [facility] [id number] [place] as [phone] [facility] 009 Branch Results Test Description Test Time Test Comments Results Result Comments Source SURGICAL PATHOLOGY REPORT 2021-12-27 16:35:30 Test Item Value Reference Range Interpretation Comme nts DIAGNOSIS: (test code = 8200) (NOTE) A) Biopsy - EndometriumEndometrial polyp. MICROSCOPIC DESCRIPTION: (test (NOTE) A) The specimen contains portions of code = 8210) endometrium. So me aspectsof the specimen show features c ompatible with a benignendometri al polyp. The sections are negative for at ypia,malignancy, and diffuse hyperpl dhara. CLINICAL DATA: (test code = (NOTE) Not specified. 8401) GROSS DESCRIPTION: (test code = (NOTE) A) SPECIMEN LABELED: 8220) EndometriumSIZE /WEIGHT: 1.25x0.7x0.1 cm AggregateSPECIM EN COLOR: Rice-brownNUMBER OF TISSUE PIECE S: MultipleSUBMITTED IN CASSETTE(S): x1 MEDIUM: FormalinCOMMENT S:Irregularly shaped tissue fragments with mucus and clotted blood. Filtered and en tirely submitted. PATHOLOGIST: (test code = 8250) (NOTE) Laila Carter Specimens processed at [facility], [address] [place] [address], , CLIA: [id number] interpreted at [facility] Pathology DeptLaboratory, [address] [facility] [place] [address], , CLIA: [id number] CPT: (test code = 8400) (NOTE) 8830 5 UNLESS OTHERWISE INDICATED, ALL TESTING PERFORM ED ATCL[facility]ICAL PATHOLOGY LABORATORIES, I [place]. [address] [place] [address] LABORATOR Y DIRECTOR: ONELIA MARC M.D. CLIA NUMBER [id number] [facility] ACCREDITATION N O. [id number] SURGICAL PATHOLOGY [id number] 13:55:27 Test Item Value Reference Range Interpretation Comments DIAGNOSIS: (test code (NOTE) A) Elvi ypectomy - = 8200) CervixUlcerated benign endometrial elvi yp. MICROSCOPIC (NOTE) A) Sections fro m a cervix DESCRIPTION: (test polyp yenny w a benign code = 8210) endometrial elvi yp.The polyp has a natalie face that has been ulcera kendy. Where surfaceepitheli um is still seen, it ranges from low columnar toflat tened. This gives way to a core showing some de nse cellularovarian stroma that becomes mo re fibrotic. This contains somedilated end ometrial glands. Quite a bit of vascular conges tionis seen along the base. CLINICAL DATA: (test (NOTE) Polyp o f cervix uteri code = 8401) GROSS DESCRIPTION: (NOTE) A) SPECIM EN LABELED: (test code = 8220) CervixSIZ E/WEIGHT: 1.8x1.3x0.5 cm AggregateSPECIM EN COLOR: Rice-pinkNUMBER OF TISSUE PIECES: Multipl eSUBMITTED IN CASSETTE(S): [id number]: FormalinCOMMENT S:Irregular ly shaped tissu e fragments and clotted blo od. Filteredand ent irely submitted. PATHOLOGIST: (test (NOTE) Angel Hamilton M.D. code = 8250) Specimens proce ssed at [facility] Pathol ogy [facility], [address] [place] [address], Phone: , CLIA: [id number] i nterpreted at [facility], [address], [place] [address], , CLIA: [id number] CPT: (test code = (NOTE) 07735 UNLE SS OTHERWISE 8400) INDICATED, ALL TESTING PERFORMED ATCLI NICAL PATHOLOG[facility] LAB[facility] [address] [place] [address] LABORA [facility] DIRECTOR: ONELIA MARC M.D. CLIA NUMBER [id number] CAP ACCREDITATION N O. [id number] LIPID [id number] 03:24:51 Test Item Value Reference Range Interpretation Comments CHOLESTEROL (test 208 MG/DL <200 H code = 2210) TRIGLYCERIDES (test 157 MG/DL <150 H code = 2232) HDL CHOLESTEROL (test 45 MG/DL >39 code = 2220) CALC LDL CHOL (test 134 MG/DL <100 H NOTE: C ALCULATED LDL code = 2237) IS BASED ON GREGORIA-LEARY METHOD WHICHINCLUDES ADJUSTABLE TRIGLYCERIDE:VL DL CHOLESTEROL RAT IO.THIS FACTOR VARIES B Y MEASURED TRIGLY CERIDE AND NON-HDLCHOL ESTEROL CONCENTRATIONS WITH INCREASED CALCU LATED LDL SEENIN HIGH ER TRIGLYCERIDE OR LOWER NON-HDL SPECIME NS. FOR MOREINFORMATION , SEE CLIENT ANNOUNCE MENT AT [email or web address] [email or web address] RATIO LDL/HDL 2.98 RATIO <3.22 UNLESS O THERWISE (test code = 2238) INDICATED , ALL TESTING PERFORMED [facility] PATHOLOGY LABORATORIES, [address] DIRECTOR: ONELIA MARC M.D. CLIA NUMBER [id number] CAP ACCREDITATION N O. [id number] CBC W/AUTO DIFF WITH [id number] 02:59:19 Test Item Value Reference Range Interpretation Comments WBC (test code = 6.6 K/UL 3.5-11.0 1001) RBC (test code = 5.24 M/UL 3.80-5.40 1002) HEMOGLOBIN (test code 15.1 G/DL 11.5-15.5 = 1003) HEMATOCRIT (test code 44.1 % 34.0-45.0 = 1004) MCV (test code = 84.2 fL 80.0-99.0 1005) MCH (test code = 28.8 PG 25.0-33.0 1006) MCHC (test code = 34.2 G/DL 31.0-36.0 1007) RDW (test code = 13.5 % 11.5-15.0 1038) NEUTROPHILS (test 53.4 % code = 1008) LYMPHOCYTES (test 33.0 % code = 1010) MONOCYTES (test code 9.7 % = 1011) EOSINOPHILS (test 2.0 % code = 1012) BASOPHILS (test code 1.4 % = 1013) IMMATURE GRANULOCYTES 0.5 % (test code = 1036) NUCLEATED RBCS (test 0.0 /100 WBC'S See_Comment [Aut omated code = 1065) message] The sy stem which generated this result transmitted reference range : 0.0. The refere nce range was not u sed to interpret th is result as normal/abnormal . PLATELET COUNT (test 315 K/UL 130-400 code = 1015) ABSOLUTE NEUTROPHILS 3.53 K/UL 1.50-7.50 (test code = 1066) ABSOLUTE LYMPHOCYTES 2.18 K/UL 1.00-4.00 (test code = 1067) ABSOLUTE MONOCYTES 0.64 K/UL 0.20-1.00 (test code = 1068) ABSOLUTE EOSINOPHILS 0.13 K/UL 0.00-0.50 (test code = 1040) ABSOLUTE BASOPHILS 0.09 K/UL 0.00-0.20 (test code = 1069) ABS IMMATURE 0.03 K/UL 0.00-0.10 GRANULOCYTES (test code = 1020) ABS NUCLEATED RBCS 0.00 K/UL 0.00-0.11 (test code = 33405)
--- NOTE | 2022-08-06 17:55 | RAD REPORT ---
EXAM DESCRIPTION: RAD - Chest Pa And Lat (2 Views) - 08/06/2022 5:42 pm CLINICAL HISTORY: Congestion Chest pain. COMPARISON: Chest Single View dated 07/20/2018; Chest Single View dated 06/20/2018; Chest Pa And Lat (2 Views) dated 02/16/2017; CHEST SINGLE VIEW dated 05/23/2014 TECHNIQUE: PA and lateral views of the chest were obtained. FINDINGS: The lungs are hyperexpanded compatible with COPD. The heart is upper limit of normal in si ze. No fracture or aggressive bony process. IMPRESSION: COPD without acute process identified.
--- NOTE | 2022-08-06 18:16 | EDPHYS ---
Physician Documentation [facility] Name: Paola Ji Age: 67 yrs Sex: Female : 1955 Arrival Date: 08/06/2022 Time: 16:27 Bed IW2 Private MD: ED Physician Gil Shanks HPI: 08/06 20:12 This 67 yrs old Black Female presents to ER via Ambulatory with complaints of Cough, kb Chest Pain. 20:12 The patient or guardian reports cough. Onset: The symptoms/episode began/occurred 1 kb week(s) ago. Severity of symptoms: At their worst the symptoms were moderate, in the emergency department the symptoms are unchanged. Modifying factors: The symptoms are alleviated by nothing, the symptoms are aggravated by nothing. Associated signs and symptoms: Pertinent positives: hoarse voice, Pertinent negatives: chest pain, fever. The patient has not experienced similar symptoms in the past. The patient has not recently seen a physician. Pt reports cough, congestion and hoarse voice for one week. Came to make sure she didn't have pneumonia. Historical: - Allergies: 16:54 No Known Allergies; aa5 - PMHx: 16:54 CHF; Hypertension; Hypercholesterolemia; aa5 - PSHx: 16:55 None; aa5 ROS: 20:13 Constitutional: Negative for fever, chills, and weight loss. kb 20:13 ENT: Positive for hoarseness, sinus congestion. 20:13 Respiratory: Positive for cough. 20:13 All other systems are negative. Exam: 20:13 Constitutional: This is a well developed, well nourished patient who is awake, alert, kb and in no acute distress. Head/Face: Normocephalic, atraumatic. ENT: Moist Mucous membranes Cardiovascular: Regular rate and rhythm with a normal S1 and S2. No gallops, murmurs, or rubs. No pulse deficits. Respiratory: Respirations even and unlabored. No increased work of breathing. Talking in full sentences Abdomen/GI: Soft, non-tender. No distention Skin: Warm, dry with normal turgor. Normal color. MS/ Extremity: Pulses equal, no cyanosis. Neurovascular intact. Full, normal range of motion. Neuro: Awake and alert, GCS 15, oriented to person, place, time, and situation. Moves all extremities. Normal gait. Vital Signs: 16:47 BP 139 / 85; Pulse 86; Resp 20 S; Temp 97.9(TE); Pulse Ox 99% on R/A; Weight 65.77 kg aa5 (R); Height 5 ft. 6 in. (167.64 cm) (R); 16:47 Body Mass Index 23.40 (65.77 kg, 167.64 cm) aa5 MDM: 16:38 Patient medically screened. kb 20:13 Differential Diagnosis: Bronchitis Influenza Upper Respiratory Infection Pneumonia. kb Data reviewed: vital signs, nurses notes. I considered the following discharge prescriptions or medication management in the emergency department I discussed and recommended Over The Counter medications, Antibiotics: At this time antibiotics are not recommended. Counseling: I had a detailed discussion with the patient and/or guardian regarding: the historical points, exam findings, and any diagnostic results supporting the discharge/admit diagnosis, radiology results, the need for outpatient follow up, a family practitioner, to return to the emergency department if symptoms worsen or persist or if there are any questions or concerns that arise at home. 08/06 16:52 Order name: Chest Pa And Lat (2 Views) XRAY; Complete Time: 17:58 kb Administered Medications: 18:18 Drug: SOLU-Medrol (methylPREDNISolone sodium succinate) 125 mg Route: IM; Site: left aa5 gluteus; 18:29 Follow up: Response: No adverse reaction aa5 Disposition Summary: 08/06/22 18:15 Discharge Ordered Location: Home kb Condition: Stable kb Diagnosis - Acute bronchitis, unspecified kb Followup: kb - With: Emergency Department - When: As needed - Reason: Worsening of condition Followup: kb - With: Private Physician - When: 2 - 3 days - Reason: Recheck today's complaints, Continuance of care, Re-evaluation by your physician Discharge Instructions: - Discharge Summary Sheet kb - Acute Bronchitis, Adult, [id number] kb Forms: - Medication Reconciliation Form kb - Thank You Letter kb - Antibiotic Education kb - Prescription Opioid Use kb - Work release form aa5 Prescriptions: - Prednisone 20 mg Oral Tablet - take 1 tablet by ORAL route once daily for 5 days; 5 tablet; Refills: 0, kb Product Selection Permitted - Tessalon Perles 100 mg Oral Capsule - take 1 capsule by ORAL route every 8 hours As needed; 15 capsule; Refills: 0, kb Product Selection Permitted - albuterol sulfate 90 mcg/actuation Inhalation HFA aerosol inhaler - inhale 2 puff by INHALATION route every 4-6 hours As needed; 1 Inhaler; ms3 Refills: 0, Product Selection Permitted Signatures: Dispatcher [employer] Joyce Buchanan, PLANT OPERATOR-C ANALI-Izzy Hannon, RN RN aa5
--- NOTE | 2022-08-06 18:16 | ER ---
Nurse's Notes [facility] Name: Paola Ji Age: 67 yrs Sex: Female : 1955 Arrival Date: 08/06/2022 Time: 16:27 Bed IW2 Private MD: Diagnosis: Acute bronchitis, unspecified Presentation: 08/06 16:47 Chief complaint: Patient states: COUGH, HOARSE VOICE X 1 WEEK. DENIES FEVER, REPORTS aa5 CONGESTION. 16:47 Coronavirus screen: cough unrelated to allergies. Ebola Screen: Patient denies travel aa5 to an Ebola-affected area in the 21 days before illness onset. Initial Sepsis Screen: Does the patient meet any 2 criteria? No. Patient's initial sepsis screen is negative. Does the patient have a suspected source of infection? No. Patient's initial sepsis screen is negative. Risk Assessment: Do you want to hurt yourself or someone else? Patient reports no desire to harm self or others. Onset of symptoms was July 2022. 16:47 Method Of Arrival: Ambulatory aa5 16:47 Acuity: JAIMEE 4 aa5 Triage Assessment: 16:47 General: Appears uncomfortable, Hoarse voice noted . Behavior is calm, cooperative. aa5 Neuro: Level of Consciousness is awake, alert, obeys commands, Oriented to person, place, time, situation. Respiratory: Airway is patent Respiratory effort is even, unlabored, Respiratory pattern is regular, symmetrical. Derm: Skin is dry, Skin is normal, Skin temperature is warm. Historical: - Allergies: 16:54 No Known Allergies; aa5 - PMHx: 16:54 CHF; Hypertension; Hypercholesterolemia; aa5 - PSHx: 16:55 None; aa5 Assessment: 18:29 Neuro: Level of Consciousness is awake, alert, obeys commands, Oriented to person, aa5 place, time, situation. Respiratory: Airway is patent Respiratory effort is even, unlabored, Respiratory pattern is regular, symmetrical. Derm: Skin is dry, Skin is normal, Skin temperature is warm. Vital Signs: 16:47 BP 139 / 85; Pulse 86; Resp 20 S; Temp 97.9(TE); Pulse Ox 99% on R/A; Weight 65.77 kg aa5 (R); Height 5 ft. 6 in. (167.64 cm) (R); 16:47 Body Mass Index 23.40 (65.77 kg, 167.64 cm) aa5 ED Course: 16:27 Patient arrived in ED. as 16:37 Joyce Santiago FNP-C is [facility]. kb 16:37 Gil Shanks DO is Attending Physician. kb 16:47 Arm band placed on. aa5 16:56 Triage completed. aa5 17:43 Chest Pa And Lat (2 Views) XRAY In Process Unspecified. EDMS 18:29 No provider procedures requiring assistance completed. Patient did not have IV access aa5 during this emergency room visit. Administered Medications: 18:18 Drug: SOLU-Medrol (methylPREDNISolone sodium succinate) 125 mg Route: IM; Site: left aa5 gluteus; 18:29 Follow up: Response: No adverse reaction aa5 Outcome: 18:15 Discharge ordered by MD. kb 18:29 Patient left the ED. aa5 18:29 Discharged to home ambulatory. aa5 18:29 Condition: stable 18:29 Discharge instructions given to patient, Instructed on discharge instructions, follow up and referral plans. medication usage, Demonstrated understanding of instructions, follow-up care, medications, Prescriptions given X 3. Signatures: Dispatcher [employer] EDMS Joyce Santiago FNP-C FNP-Jana Pretty Audri, RN RN aa5
[2022-08-06] MEDS ORDERED: METHYLPREDNISOLONE 125 MG INJ ONE (18:18)
[2022-08-06 19:20] VITALS: BP 139/85; TEMP 97.9; O2SAT 99
== END 2022-08-06 18:29 | disposition home or self-care (01) ==
LOC: ER 16:24
DX: J20.9 Acute bronchitis, unspecified (principal); I10 Essential (primary) hypertension; I50.9 Heart failure, unspecified
CPT/HCPCS: 71046; J2930

== ENCOUNTER 2023-02-24 16:52 | Emergency (ER) | payer OTHER ==
--- OUTSIDE RECORDS SUMMARY | 2023-02-24 16:57 | XMS REPORT | Continuity of Care Document ---
:1955 Author Organization [facility] t Address [address] [place] [address] [address] [place] [address] Care Team Providers Name Role Phone MYRNA GRULLON Primary Care Physician Unavailable ANGELO ALVARADO Attending Clinician Unavailable YENI AVILES Attending Clinician Unavailable RADIOLOGY Attending Clinician Unavailable HENRIQUE DE LA TORRE K.HDavid Attending Clinician Unavailable Henrique De La Torre MD K.HDavid Attending Clinician Pob, Adc Lab Main Attending Clinician Unavailable Doctor Unassigned, [place] Attending Clinician Unavailable Payers Payer Name Policy Type Policy Number Effective Date Expiration Date Shanika roberto [employer] MEDICARE OUT [id number] 2022 OF NETWORK 00:00:00 MICHAEL/ISMAEL [id number] 2019 MEDICARE ADVANTAGE 00:00:00 Problems This patient has no known problems. Allergies, Adverse Reactions, Alerts Allergy Allergy Status Severity Reaction(s) Onset Inactive Treating Comm ents Source Name Type Date Date Clinician NO KNOWN Drug Active Univers ALLERGIE Class ity of S [facility] Social History Social Habit Start Date Stop Date Quantity Comments Source History of Cigarette Smoker Universi ty of tobacco use [facility] Sex Assigned At Universit y of [facility] Exposure to Not sure University of SARS-CoV-2 [facility] (event) [place] Tobacco use and 2020-06-08 2020-06-08 Never used Universit y of exposure 00:00:00 00:00:00 [facility] Tobacco Comment 2018-10-08 2018-10-08 2 Ciggs a week Unive rsity of 00:00:00 00:00:00 [place] [facility] Smoking Status Start Date Stop Date Source Current some day smoker 2020-06-08 00:00:00 [facility] [place] [facility] Medications Ordered Filled Start Stop Current Ordering Indication Dosage Frequency Signature Comments Components Source Medication Medication Date Date Medication? Clinician (SIG) Name Name hydroCHLORO 0 Yes [id number] TAKE 1 Univers thiazide 2-07 CAPSULE BY ity o f 12.5 mg 00:00: MOUTH [place] capsule 00 EVERY DAY Medical Branch AMLODIPINE 2019- Yes [id number] TAKE 1 Univers 5 mg tablet 2-17 TABLET BY ity of 00:00: MOUTH [place] 00 EVERY DAY Medical Branch CARVEDILOL 2019-06 Yes [id number] TAKE 1 Univers 12.5 mg 2-17 TABLET BY ity of tablet 00:00: MOUTH [place] 00 TWICE A Medical DAY WITH Branch MEALS AMLODIPINE 2019-06 Yes [id number] TAKE 1 Univers 5 mg tablet 2-17 TABLET BY ity of 00:00: MOUTH [place] 00 EVERY DAY Medical Branch CARVEDILOL 2019-06 Yes [id number] TAKE 1 Univers 12.5 mg 2-17 TABLET BY ity of tablet 00:00: MOUTH [place] 00 TWICE A Medical DAY WITH Branch MEALS atorvastati 2019-06 Yes 20mg Take 1 Univ ers n 20 mg 2-16 tablet by ity of tablet 00:00: mouth at [place] 00 bedtime. Medical Branch atorvastati 2019-06 Yes 20mg Take 1 Univ ers n 20 mg 2-16 tablet by ity of tablet 00:00: mouth at [place] 00 bedtime. Medical Branch atorvastati 2019-06 Yes 20mg Take 1 Univ ers n 20 mg 2-16 tablet by ity of tablet 00:00: mouth at [place] 00 bedtime. Medical Branch hydroCHLORO 2020-1 Yes [id number] TAKE ONE Univers thiazide 2-11 CAPSULE BY ity o f 12.5 mg 00:00: MOUTH [place] capsule 00 EVERY DAY Medical Branch hydroCHLORO 2020-1 Yes [id number] TAKE ONE Univers thiazide 2-11 CAPSULE BY ity o f 12.5 mg 00:00: MOUTH [place] capsule 00 EVERY DAY Medical Branch hydroCHLORO 2020-1 Yes [id number] TAKE ONE Univers thiazide 2-11 CAPSULE BY ity o f 12.5 mg 00:00: MOUTH [place] capsule 00 EVERY DAY Medical Branch hydroCHLORO 2020-1 Yes [id number] TAKE ONE Univers thiazide 2-11 CAPSULE BY ity o f 12.5 mg 00:00: MOUTH [place] capsule 00 EVERY DAY Medical Branch hydroCHLORO 2019-06 Yes [id number] TAKE ONE Univers thiazide 2-11 CAPSULE BY ity o f 12.5 mg 00:00: MOUTH [place] capsule 00 EVERY DAY Medical Branch hydroCHLORO 2019-06- No [id number] TAKE ONE Univers thiazide 2-11 02-07 CAPSULE BY ity of 12.5 mg 00:00: 00:00 MOUTH [place] capsule 00 :00 EVERY DAY Medical Branch amLODIPine 2019-06- No [id number] 5mg Take 1 Univers 5 mg tablet 08-09 tablet by it y of 00:00: 05:59 mouth [place] 00 :00 daily for Medical 30 days. Branch carvediloL 2019-06- No [id number] 12.5mg Take 1 Univers 12.5 mg 2-07-09 tablet by ity of tablet 00:00: 05:59 mouth 2 [place] 00 :00 (two) Medical times [place] daily with meals for 30 days. lovastatin 2019-06- No [id number] 20mg Take 1 Univers 20 mg -07-09 tablet by ity of tablet 00:00: 05:59 mouth [place] 00 :00 daily for Medical 30 days. Branch amLODIPine 2019-06- No [id number] 5mg Take 1 Univers 5 mg tablet 08-09 tablet by it y of 00:00: 05:59 mouth [place] 00 :00 daily for Medical 30 days. [place] carvediloL 2019-06- No [id number] 12.5mg Take 1 Univers 12.5 mg 08-09 tablet by ity of tablet 00:00: 05:59 mouth 2 [place] 00 :00 (two) Medical times [place] daily with meals for 30 days. lovastatin 2019-06- No [id number] 20mg Take 1 Univers 20 mg 2-07-09 tablet by ity of tablet 00:00: 05:59 mouth [place] 00 :00 daily for Medical 30 days. Branch amLODIPine 2019-06- No [id number] 5mg Take 1 Univers 5 mg tablet 08-09 tablet by it y of 00:00: 05:59 mouth [place] 00 :00 daily for Medical 30 days. Branch carvediloL 2019-06- No [id number] 12.5mg Take 1 Univers 12.5 mg 2-07-09 tablet by ity of tablet 00:00: 05:59 mouth 2 [place] 00 :00 (two) Medical times [place] daily with meals for 30 days. lovastatin 2019-06- No [id number] 20mg Take 1 Univers 20 mg 2-04 29- tablet by ity of tablet 00:00: 05:59 mouth [place] 00 :00 daily for Medical 30 days. Branch amLODIPine 2019-06- No [id number] 5mg Take 1 Univers 5 mg tablet 08-09-17 tablet by it y of 00:00: 00:00 mouth [place] 00 :00 daily for Medical 30 days. Branch carvediloL 2019-06- No [id number] 12.5mg Take 1 Univers 12.5 mg 08-0917 tablet by ity of tablet 00:00: 00:00 mouth 2 [place] 00 :00 (two) Medical [facility] daily with meals for 30 days. amLODIPine 2019-06- No [id number] 5mg Take 1 Univers 5 mg tablet 08-0917 tablet by it y of 00:00: 00:00 mouth [place] 00 :00 daily for Medical 30 days. Branch carvediloL 2019-06- No [id number] 12.5mg Take 1 Univers 12.5 mg 08-09-17 tablet by ity of tablet 00:00: 00:00 mouth 2 [place] 00 :00 (two) Medical [facility] daily with meals for 30 days. lovastatin 2019-06- No [id number] 20mg Take 1 Univers 20 mg - 12-16 tablet by ity of tablet 00:00: 00:00 mouth [place] 00 :00 daily for Medical 30 days. Branch lovastatin 2020-0 Yes 20mg Take 20 mg U nivers 20 mg 2-28 by mouth ity of tablet 00:00: daily. [place] 00 Medical [place] lovastatin 2020-0 Yes 20mg Take 20 mg U nivers 20 mg 2-28 by mouth ity of tablet 00:00: daily. [address] lovastatin 2020-0 2020- No 20mg Take 20 mg Univers 20 mg 2-28 12-11 by mouth ity of tablet 00:00: 00:00 daily. [place] 00 :00 Medical Branch lovastatin 2020-0 2020- No 20mg Take 20 mg Univers 20 mg 2-28 12-11 by mouth ity of tablet 00:00: 00:00 daily. [place] 00 :00 Medical Branch hydroCHLORO 2019-0 Yes [id number] TAKE ONE Univers thiazide 9-11 CAPSULE BY ity o f 12.5 mg 00:00: MOUTH [place] capsule 00 EVERY DAY Medical Branch hydroCHLORO 2019-0 Yes [id number] TAKE ONE Univers thiazide 9-11 CAPSULE BY ity o f 12.5 mg 00:00: MOUTH [place] capsule 00 EVERY DAY Medical Branch hydroCHLORO 2019-0 Yes [id number] TAKE ONE Univers thiazide 9-11 CAPSULE BY ity o f 12.5 mg 00:00: MOUTH [place] capsule 00 EVERY DAY Medical Branch hydroCHLORO 2019-0 2020- No [id number] TAKE ONE Univers thiazide 9-11 12-11 CAPSULE BY ity of 12.5 mg 00:00: 00:00 MOUTH [place] capsule 00 :00 EVERY DAY Medical Branch hydroCHLORO 2019-0 2020- No [id number] TAKE ONE Univers thiazide 9-11 12-11 CAPSULE BY ity of 12.5 mg 00:00: 00:00 MOUTH [place] capsule 00 :00 EVERY DAY Medical Branch amLODIPine 2019-0 Yes [id number] 5mg Take 1 U nivers 5 mg tablet 9-06 tablet by ity of 00:00: mouth [place] 00 daily. Medical Branch amLODIPine 2019-0 Yes [id number] 5mg Take 1 U nivers 5 mg tablet 9-06 tablet by ity of 00:00: mouth [place] 00 daily. Medical Branch amLODIPine 2019-0 Yes [id number] 5mg Take 1 U nivers 5 mg tablet 9-06 tablet by ity of 00:00: mouth [place] 00 daily. Medical Branch amLODIPine 2019-0 Yes [id number] 5mg Take 1 U nivers 5 mg tablet 9-06 tablet by ity of 00:00: mouth [place] 00 daily. Medical Branch amLODIPine 2019-0 2020- No [id number] 5mg Take 1 Univers 5 mg tablet 9- 12-11 tablet by it y of 00:00: 00:00 mouth [place] 00 :00 daily. Medical Branch amLODIPine 2019-0 2020- No [id number] 5mg Take 1 Univers 5 mg tablet 9- 12-11 tablet by it y of 00:00: 00:00 mouth [place] 00 :00 daily. Medical Branch carvedilol Yes [id number] 12.5mg Take 1 Univers 12.5 mg 8-28 tablet by ity of tablet 00:00: mouth 2 (two) Medical times Branch daily with meals. carvedilol Yes [id number] 12.5mg Take 1 Univers 12.5 mg 8-28 tablet by ity of tablet 00:00: mouth 2 [place] (two) Medical times Branch daily with meals. carvedilol Yes [id number] 12.5mg Take 1 Univers 12.5 mg 8-28 tablet by ity of tablet 00:00: mouth [place] (two) Medical times Branch daily with meals. carvedilol Yes [id number] 12.5mg Take 1 Univers 12.5 mg 8-28 tablet by ity of tablet 00:00: mouth [place] (two) Medical times Branch daily with meals. carvedilol Yes [id number] 12.5mg Take 1 Univers 12.5 mg 8-28 tablet by ity of tablet 00:00: mouth [place] (two) Medical times Branch daily with meals. carvedilol Yes [id number] 12.5mg Take 1 Univers 12.5 mg 8-28 tablet by ity of tablet 00:00: mouth [place] (two) Medical times Branch daily with meals. carvedilol 2020- No [id number] 12.5mg Take 1 Univers 12.5 mg 8-28 12-11 tablet by ity of tablet 00:00: 00:00 mouth 2 [place] 00 :00 (two) Medical times Branch daily with meals. carvedilol 2020- No [id number] 12.5mg Take 1 Univers 12.5 mg 8-28 12-11 tablet by ity of tablet 00:00: 00:00 mouth 2 [place] 00 :00 (two) Medical times Branch daily with meals. amLODIPine Yes [id number] TAKE 1 U nivers 5 mg tablet 4-01 TABLET BY ity of 00:00: MOUTH [place] 00 EVERY DAY Medical Branch amLODIPine Yes [id number] TAKE 1 U nivers 5 mg tablet 4-01 TABLET BY ity of 00:00: MOUTH [place] 00 EVERY DAY Medical Branch amLODIPine 2019-0 Yes [id number] TAKE 1 U nivers 5 mg tablet 4-01 TABLET BY ity of 00:00: MOUTH [place] 00 EVERY DAY Medical Branch carvedilol 2018-0 Yes [id number] TAKE 1 U nivers 6.25 mg 4- TABLET BY ity of tablet 00:00: MOUTH [place] 00 TWICE A Medical DAY Branch amLODIPine 2018-0 2019- No [id number] TAKE 1 Univers 5 mg tablet 4-07 07- TABLET BY it y of 00:00: 00:00 MOUTH [place] 00 :00 EVERY DAY Medical Branch carvedilol 2018-0 2019- No [id number] TAKE 1 Univers 6.25 mg 4-07 06- TABLET BY ity of tablet 00:00: 00:00 MOUTH [place] 00 :00 TWICE A Medical DAY Branch carvedilol 2018-0 2019- No [id number] TAKE 1 Univers 6.25 mg 4-07 06- TABLET BY ity of tablet 00:00: 00:00 MOUTH [place] 00 :00 TWICE A Medical DAY Branch famotidine 2018-0 Yes [id number] TAKE 1 U nivers 20 mg 1-23 TABLET BY ity of tablet 00:00: MOUTH [place] 00 EVERY 12 Medical HOURS FOR Branch 10 DAYS famotidine Yes [id number] TAKE 1 U nivers 20 mg 1-23 TABLET BY ity of tablet 00:00: MOUTH [place] 00 EVERY 12 Medical HOURS FOR Branch 10 DAYS famotidine Yes [id number] TAKE 1 U nivers 20 mg 1-23 TABLET BY ity of tablet 00:00: MOUTH [place] 00 EVERY 12 Medical HOURS FOR Branch 10 DAYS famotidine 2018-0 Yes [id number] TAKE 1 U nivers 20 mg 1-23 TABLET BY ity of tablet 00:00: MOUTH [place] 00 EVERY 12 Medical HOURS FOR Branch 10 DAYS famotidine 20190 Yes [id number] TAKE 1 U nivers 20 mg 1-23 TABLET BY ity of tablet 00:00: MOUTH [place] 00 EVERY 12 Medical HOURS FOR Branch 10 DAYS famotidine 2019-0 Yes [id number] TAKE 1 U nivers 20 mg 1-23 TABLET BY ity of tablet 00:00: MOUTH [place] 00 EVERY 12 Medical HOURS FOR Branch 10 DAYS famotidine 2018-0 Yes [id number] TAKE 1 U nivers 20 mg 1-23 TABLET BY ity of tablet 00:00: MOUTH [place] 00 EVERY 12 Medical HOURS FOR Branch 10 DAYS famotidine 2019 Yes [id number] TAKE 1 U nivers 20 mg 1-23 TABLET BY ity of tablet 00:00: MOUTH [place] 00 EVERY 12 Medical HOURS FOR Branch 10 DAYS famotidine Yes [id number] TAKE 1 U nivers 20 mg 1-23 TABLET BY ity of tablet 00:00: MOUTH [place] 00 EVERY 12 Medical HOURS FOR Branch 10 DAYS famotidine 2019 Yes [id number] TAKE 1 U nivers 20 mg 1-23 TABLET BY ity of tablet 00:00: MOUTH [place] 00 EVERY 12 Medical HOURS FOR Branch 10 DAYS famotidine Yes [id number] TAKE 1 U nivers 20 mg 1-23 TABLET BY ity of tablet 00:00: MOUTH [place] 00 EVERY 12 Medical HOURS FOR Branch 10 DAYS famotidine Yes [id number] TAKE 1 U nivers 20 mg 1-23 TABLET BY ity of tablet 00:00: MOUTH [place] 00 EVERY 12 Medical HOURS FOR Branch 10 DAYS famotidine Yes [id number] TAKE 1 U nivers 20 mg 1-23 TABLET BY ity of tablet 00:00: MOUTH [place] 00 EVERY 12 Medical HOURS FOR Branch 10 DAYS HYDROCHLORO 2018-0 Yes [id number] TAKE ONE Univers THIAZIDE 6-27 CAPSULE BY ity o f 12.5 mg 00:00: MOUTH [place] capsule 00 EVERY DAY Medical Branch HYDROCHLORO 2018-0 Yes [id number] TAKE ONE Univers THIAZIDE 6-27 CAPSULE BY ity o f 12.5 mg 00:00: MOUTH [place] capsule 00 EVERY DAY Medical Branch HYDROCHLORO 2018-0 Yes [id number] TAKE ONE Univers THIAZIDE 6-27 CAPSULE BY ity o f 12.5 mg 00:00: MOUTH [place] capsule 00 EVERY DAY Medical Branch HYDROCHLORO 2018-0 Yes [id number] TAKE ONE Univers THIAZIDE 6-27 CAPSULE BY ity o f 12.5 mg 00:00: MOUTH [place] capsule 00 EVERY DAY Medical Branch HYDROCHLORO 2018-0 2019- No [id number] TAKE ONE Univers THIAZIDE 6-27 09-10 CAPSULE BY ity of 12.5 mg 00:00: 00:00 MOUTH [place] capsule 00 :00 EVERY DAY Medical Branch Vital Signs Vital Name Observation Time Observation Value Comments Source Body weight 2020-06-08 17:41:00 80.06 kg [facility] [place] [facility] BMI 2020-06-08 17:41:00 28.49 kg/m2 [facility] [place] [facility] Oxygen saturation in 2020-06-08 17:41:00 100 /min University of Arterial blood by [facility] Pulse oximetry Branch Systolic blood 2020-06-08 17:41:00 129 mm[Hg] Univer sity of pressure [place] [facility] Diastolic blood 2020-06-08 17:41:00 79 mm[Hg] Unive rsity of pressure [place] [facility] Heart rate 2020-06-08 17:41:00 79 /min [facility] [place] [facility] Body height 2020-06-08 17:41:00 167.6 cm [facility] [place] [facility] Systolic blood 2019-02-23 13:48:00 137 mm[Hg] Univer sity of pressure [place] [facility] Diastolic blood 2019-02-23 13:48:00 91 mm[Hg] Unive rsity of pressure [place] [facility] Heart rate 2019-02-23 13:46:00 93 /min [facility] [place] [facility] Respiratory rate 2019-02-23 13:46:00 20 /min Univ ersity of [facility] Branch Body height 2019-02-23 13:46:00 167.6 cm [facility] [place] [facility] Body weight 2019-02-23 13:46:00 76.204 kg [facility] [place] [facility] BMI 2019-02-23 13:46:00 27.12 kg/m2 [facility] [place] [facility] Oxygen saturation in 2019-02-23 13:46:00 98 /min University of Arterial blood by [facility] Pulse oximetry Branch Procedures Procedure Date / Time Performed Performing Clinician [facility] e ASSIGNMENT OF BENEFITS 2020-06-08 17:09:49 Doctor Unassigned, No [facility] [place] Name Medical Branch [facility] PATIENT FINANCIAL 2019-02-23 13:24:08 Doctor Unassigned, No University [facility] POLICY Name Medical Branch Encounters Start End Encounter Admission Attending Care Care Encounter Source Date/Time Date/Time Type Type Clinicians Facility Department ID 2023-02-27 2023-02-27 Outpatient R RADIOLOGY [facility] [id number] Univers 00:00:00 00:00:00 ity of [facility] 2023-02-03 2023-02-03 Outpatient SFA SFA [id number] [place] 09:50:32 09:50:32 [id number] [place] 2023-01-22 2023-01-22 Outpatient SFA SFA [id number] [place] 09:04:13 09:04:13 [id number] [facility] 2023-01-15 2023-01-15 Outpatient SFA SFA [id number] [place] 16:27:42 16:27:42 [id number] [facility] [place] 2022-11-25 2022-11-25 Outpatient SFA SFA [id number] [place] 09:42:27 09:42:27 [id number] [facility] 2022-11-10 2022-11-10 Outpatient R RADIOLOGY [facility] [id number] Univers 00:00[facility]00 [facility]00[facility] 2022-11-04 2022-11-04 Outpatient SFA SFA [id number] [place] 15:22:35 15:22:35 [id number] [place] 2022-10-02 2022-10-02 Outpatient SFA SFA [id number] [place] 08:20:28 08:20:28 [id number] [facility] 2022-09-24 2022-09-24 Outpatient SFA SFA [id number] [place] 11:05:18 11:05:18 [id number] [facility] 2022-09-17 2022-09-17 Outpatient SFA SFA [id number] Herman 16:33:30 16:33:30 [id number] [facility] 2022-08-04 2022-08-04 Outpatient SFA SFA [id number] Herman 16:50:10 16:50:10 [id number] [facility] 2021-06-13 2021-06-13 Outpatient R BRITT [facility] [id number] Univers 15:30:00 15:30:00 [facility] 2020-08-05 2020-08-05 [facility] [id number] Univers 00:00:00 00:00:00 Sendil Eunice Diaz [id number] [facility] 4.2.7.2.686 Nela Abreu [phone] [address] 2020-06-13 2020-06-13 Refkandace De La Torre [facility] 1.2.840.114 [id number] Univers 00:00:00 00:00:00 Henrique Diaz [id number] [id number] [phone] La dical nal 059 [facility] 2020-06-13 2020-06-13 Telephone [facility] [id number] Univers 00:00:00 00:00:00 Senddanielle Diaz [id number] [facility] [id number] [phone] La dical nal 059 [facility] 2020-06-08 2020-06-08 Routeman Dejan Colmenares Lab Main [facility] 1.2.8 40.114 [id number] Univers 12:12:18 12:27:18 Visit Henrique De La Torre 350.1.13. 10 [facility] [place] [phone] La dical nal 353 [facility] 2020-06-08 2020-06-08 Office [facility] 1.2.840.114 [id number] Univers 11:11:00 11:56:42 Visit Henrique Diaz 350.1.13.10 [facility] [phone] La dicva nal 059 [facility] 2020-06-08 2020-06-08 Outpatient R BRITT [facility] [id number] Univers 11:30:00 11:30:00 SENDIL ity of [facility] 2020-06-08 2020-06-08 Orders Doctor ANGEL 1.2.840.114 [id number] Univers 00:00:00 00:00:00 Only Unassigned, CHE 350.1.13.10 ity of [place] [facility] 4.2.7.2.686 Barber as [phone] [address] 2020-05-15 2020-05-15 Outpatient R BRITT [facility] [id number] Univers 11:00:00 11:00:00 SENDIL ity of [facility] 2020-03-29 2020-03-29 [facility] [id number] Univers 09:30:00 09:30:00 SENDIL brooke [facility] 2019-09-15 2019-09-15 Telemedici [facility] 1.2.840.114 [id number] Univers 08:53:59 16:53:37 ne Visit Senddanielle Diaz 350.1.13.10 [place] [phone] [address] 2019-09-15 2019-09-15 [facility] [id number] Univers 09:00:00 09:00:00 SENDIL [facility] 2019-09-13 2019-09-13 [facility] [id number] Univers 11:00:00 11:00:00 SENDIL [facility] 2019-03-08 2019-03-08 Refill [facility] 1.2.840.114 [id number] Univers 00:00:00 00:00:00 Senddanielle Diaz 350.1.13.10 [place] [phone] [address] 2019-03-04 2019-03-04 Refill Brtit [facility] 1.2.840.114 [id number] Univers 00:00:00 00:00:00 Henrique Diaz 350.1.13.10 [facility] 4[place].2.686 [place] [phone] [address] 2019-02-23 2019-02-23 Office [facility] 1.2.840.114 [id number] Univers 08:26:01 09:04:19 Visit Henrique Diaz 350.1.13.10 it[place] 4[place].2.[place] [phone] [address] 2019-02-23 2019-02-23 Orders Doctor ANGEL 1.2.840.114 [id number] Univers 00:00:00 00:00:00 Only Unassigned, [place] 350.1.13.10 ity of [place] [facility] 4.2.7.2.686 [place] as [phone] [place] [address] Branch Results Test Description Test Time Test Comments Results Result Comments Source TSH, THIRD GENERATION 2023-02-04 04:26:15 Test Item Value Reference Range Interpretation Comme nts TSH, THIRD GENERATION (test code = 2821) 0.721 UIU/ML 0.400-4.100 FREE T4 (THYROXINE)2023-02-04 04:26:15 Test Item Value Reference Range Interpretation Comments FREE T4 1.11 NG/DL 0.80-1.90 UNLESS OTHERWI SE (THYROXINE) (test INDICATED, ALL TESTING code = 2823) PERFORMED AT INICAL PATHOLOGY [employer], [employer] [address] [place] [id number] [place] [address] DIRECTOR: Rosario GARCIA MARSHA NUMBER [id number] CAP ACCREDITATION N O. [id number] THYROXINE, FREE, [id number] 09:22:02 Test Item Value Reference Range Interpretation Comments THYROXINE, FREE, 2.4 ng/dL 1.1-2.4 FREE T4 BY EQUIL DIAL (test code = DIALYSIS-T MS: 54013) REFERENCE INTER VALS 1ST TRIMESTER ..... . 0.7 - 2.0 ng/dL 2ND TRIME STER ...... 0.7 - 2.1 ng/dL 3RD TRIMESTER ..... . 0.5 - 1.6 ng/dLINTERPRETI VE INFORMATION: FT 4 ED-TMSThis test was develo ped and its performance farhan racteristics determined by A [facility]. I t has not been cleared or approved by the [place] Food and Drug Administration. This test was performed i n a CLIA certified [employer] ator and is intended for inical purposes. TESTI NG PERFORMED AT [facility] [employer], [facility] [address] [place], [place] [address] [place]. [id number] CL [place] NO. [id number] THYROTROPIN RECEPTOR [id number] 12:59:32 Test Item Value Reference Range Interpretation Comments TRAB (test code = 1.36 IU/L <1.75 [place] [address]) [facility] [employer] [facility] [address] , [address], [address] [place] [address] CLIA NO: [id number] THYROID PEROXIDASE [id number] 03:59:09 Test Item Value Reference Range Interpretation Comments THYROID 11 IU/ML See_Comment EFFECTIVE 01/2023, NEW PEROXIDASE AB REFERENCE RANG E CHANGE (test code = [place] [address]) METHODOLOGY.NEW METHODOLOGY IS [employer] EMILUMINESCENCE IMMUNOASSAY(ECL IA). [Automated message] The sy stem which generated this result transmitted ref erence range: <=34. The refer ence range was not used to int erpret this result as billie l/abnormal. FREE [id number] 03:58:41 Test Item Value Reference Range Interpretation Comments FREE T3 (test code = 4273) 3.2 PG/ML 2.2-4.2 TSH REFLEX TO FREE [id number] 03:58:41 Test Item Value Reference Range Interpretation Comments TSH REFLEX TO FREE T4 (test code 0.377 UIU/ML 0.400-4.100 L = 2834) FREE T4 (THYROXINE)2022-11-05 03:58:41 Test Item Value Reference Range Interpretation Comments FREE T4 1.23 NG/DL 0.80-1.90 UNLESS OTHERWI SE (THYROXINE) (test INDICATED, ALL TESTING code = 2823) [facility] [employer] [address] [place], [place] [id number] [employer] DIRECTOR: Rosario GARCIA MARSHA NUMBER [id number] CAP ACCREDITATION N O. [id number] OCCULT BLD,FECAL,IMMUNOASSAY [id number] 11:10:46 Test Item Value Reference Range Interpretation Comments OCCULT BLD, FECAL NEGATIVE NEGATIVE CPL h as important (test code = 92342) patholog y staff changes effective 08/27. New pathology s taff will provide uninter rupted, excellent patie nt care and clinical consul tation. See URL: [email or web address] UNLESS OT HERWISE INDICATED, ALL TESTING PERFORMED AT INThryve [address] [place] [id number] [employer] [place] DIRECTOR: Rosario GARCIA MARSHA NUMBER [id number] CAP ACCREDITATION N O. [id number] HEPATITIS PANEL, [id number] 04:58:56 Test Item Value Reference Range Interpretation Comments HEPATITIS A IgM (test NON-REACTIVE NON-REACTIVE code = 48649) HEPATITIS B CORE IgM NON-REACTIVE NON-REACTIVE (test code = 4644) HEPATITIS B SURF AG NON-REACTIVE NON-REACTIVE (test code = 2739) HEPATITIS C ANTIBODY NON-REACTIVE NON-REACTIVE (test code = 4675) INTERPRETATION (NOTE) Hepatitis A HEPATITIS A: (test code sero logy shows no = 2552) evidence of acu te hepatitis A. INTERPRETATION (NOTE) Hepatitis B HEPATITIS B: (test code sero logy shows no = 33743) evidence of acu te hepatitis B and no indication of exposure to hepatitis B vir us in the previous sherita eight months. INTERPRETATION (NOTE) Hepatitis C HEPATITIS C: (test code sero logy shows no = 96210) evidence of exposure to hepatitisC viru s at this time. I t can take up to 12 months after exposure tothe hepatitis C vir us for antibodies to become detectab le in the blood in certain patient s. TSH, THIRD [id number] 04:26:31 Test Item Value Reference Range Interpretation Comments TSH, THIRD 0.378 UIU/ML 0.400-4.100 L [facility] has im portant GENERATION (test pathology s taff code = 2821) changes effecti ve 08/27/2022. New pathology staff will provide uninter rupted, excellent patie nt care and clinical consultation. S ee URL: [email or web address]. UNLES S OTHERWISE INDIC ATED, ALL TESTING PER FORMED AT [facility] [employer], [place]. [address] [place] [address] ALEXSANDER BRUMFIELD DIRECTOR: Rosario GARCIA MARSHA NUMBER [id number] CAP ACCREDITATION N O. [id number] COMPREHENSIVE METABOLIC [id number] 04:23:07 Test Item Value Reference Range Interpretation Comments GLUCOSE (test code = 104 MG/DL 70-99 H 2216) BUN (test code = 8 MG/DL 2207) CREATININE (test 0.65 MG/DL 0.60-1.30 code = 2213) eGFR (2020 CKD-EPI) 96 ML/MIN/1.73 >60 (test code = 83999) CALC BUN/CREAT (test 12 RATIO 6-28 code = 2235) SODIUM (test code = 128 MEQ/L 133-146 L 2230) POTASSIUM (test code 4.3 MEQ/L 3.5-5.4 = 2227) CHLORIDE (test code 90 MEQ/L 95-107 L = 2214) CARBON DIOXIDE (test 28 MEQ/L 19-31 code = 2205) CALCIUM (test code = 10.4 MG/DL 8.5-10.5 2208) PROTEIN, TOTAL (test 7.3 G/DL 6.1-8.3 code = 2228) ALBUMIN (test code = 4.1 G/DL 3.5-5.2 2200) CALC GLOBULIN (test 3.2 G/DL 1.9-3.7 code = 2239) CALC A/G RATIO (test 1.3 RATIO 1.0-2.6 code = 2233) BILIRUBIN, TOTAL 0.6 MG/DL See_Comment [Automated message] (test code = 2206) The syste m which generated this result transmit kendy reference range : <=1.2. The refe rence range was not u sed to interpret th is result as normal/abnormal . ALKALINE PHOSPHATASE 134 U/L 40-142 (test code = 220) AST (test code = 22 U/L 9-40 2217) ALT (test code = 13 U/L 5-40 2218) LIPID [id number] 04:23:07 Test Item Value Reference Range Interpretation Comments CHOLESTEROL (test 205 MG/DL <200 H code = 2210) TRIGLYCERIDES (test 70 MG/DL <150 code = 2232) HDL CHOLESTEROL (test 59 MG/DL >39 code = 2220) CALC LDL CHOL (test 130 MG/DL <100 H NOTE: C ALCULATED LDL code = 2237) IS BASED ON GREGORIA-LEARY METHOD WHICHINCLUDES ADJUSTABLE TRIGLYCERIDE:VL DL CHOLESTEROL RAT IO.THIS FACTOR VARIES B Y MEASURED TRIGLY CERIDE AND NON-HDLCHOL ESTEROL CONCENTRATIONS WITH INCREASED CALCU LATED LDL SEENIN HIGH ER TRIGLYCERIDE OR LOWER NON-HDL SPECIME NS. FOR MOREINFORMATION , SEE CLIENT ANNOUNCE MENT AT [email or web address] LDL/HDL 2.20 RATIO <3.22 (test code = 2238) HEMOGLOBIN [id number] 03:29:45 Test Item Value Reference Range Interpretation Comments HEMOGLOBIN A1c (test code = 49564) 5.1 % 4.2-5.6 CBC W/AUTO DIFF WITH [id number] 02:25:42 Test Item Value Reference Range Interpretation Comments WBC (test code = 4.3 K/UL 3.5-11.0 1001) RBC (test code = 5.33 M/UL 3.80-5.40 1002) HEMOGLOBIN (test code 15.1 G/DL 11.5-15.5 = 1003) HEMATOCRIT (test code 46.0 % 34.0-45.0 H = 1004) MCV (test code = 86.3 fL 80.0-99.0 1005) MCH (test code = 28.3 PG 25.0-33.0 1006) MCHC (test code = 32.8 G/DL 31.0-36.0 1007) RDW (test code = 13.5 % 11.5-15.0 1038) NEUTROPHILS (test 39.1 % code = 1008) LYMPHOCYTES (test 44.2 % code = 1010) MONOCYTES (test code 11.3 % = 1011) EOSINOPHILS (test 3.3 % code = 1012) BASOPHILS (test code 1.6 % = 1013) IMMATURE GRANULOCYTES 0.5 % (test code = 1036) NUCLEATED RBCS (test 0.0 /100 WBC'S See_Comment [Aut omated code = 1065) message] The sy stem which generated this result transmitted reference range : 0.0. The refere nce range was not u sed to interpret th is result as normal/abnormal . PLATELET COUNT (test 290 K/UL 130-400 code = 1015) ABSOLUTE NEUTROPHILS 1.66 K/UL 1.50-7.50 (test code = 1066) ABSOLUTE LYMPHOCYTES 1.88 K/UL 1.00-4.00 (test code = 1067) ABSOLUTE MONOCYTES 0.48 K/UL 0.20-1.00 (test code = 1068) ABSOLUTE EOSINOPHILS 0.14 K/UL 0.00-0.50 (test code = 1040) ABSOLUTE BASOPHILS 0.07 K/UL 0.00-0.20 (test code = 1069) ABS IMMATURE 0.02 K/UL 0.00-0.10 GRANULOCYTES (test code = 1020) ABS NUCLEATED RBCS 0.00 K/UL 0.00-0.11 (test code = 03355) SURGICAL PATHOLOGY [id number] 16:35:30 Test Item Value Reference Range Interpretation Comments DIAGNOSIS: (test (NOTE) A) Biopsy - code = 8200) EndometriumEndo metrial polyp. MICROSCOPIC (NOTE) A) The specimen contains DESCRIPTION: (test portions of endometrium. Some code = 8210) aspectsof the s pecimen show features compat ible with a benignendometri al polyp. The sections are ne gative for atypia,malignan cy, and diffuse hyperpl dhara. CLINICAL DATA: (NOTE) Not specified . (test code = 8401) GROSS DESCRIPTION: (NOTE) A) SPECIM EN LABELED: (test code = 8220) Endometri umSIZE/WEIGHT: 1.25x0.7x0.1 cm AggregateSPECIM EN COLOR: Rice-brownNUMBER OF TISSUE PIECES: Multipl eSUBMITTED IN CASSETTE(S): x1 MEDIUM: FormalinCOMMENT S:Irregularly shaped tissue f ragments with mucus and clott ed blood. Filtered and en tirely submitted. PATHOLOGIST: (test (NOTE) Laila Carter Specimens code = 8250) processed at [facility], [address] [place] [address], Phone: , CLIA: [id number] i nterpreted at [facility], [address] [place] [address], Phone: , CLIA: [id number] CPT: (test code = (NOTE) 45111 [address] SS OTHERWISE 8400) INDICATED, ALL TESTING PERFORMED [facility] PATHOLOGY [employer] [address] [place] [address] LABORATORY DIRE CTOR: ONELIA MARC M.D. CLIA NUMBER [id number] [place]. [id number] SURGICAL PATHOLOGY [id number] 13:55:27 Test Item Value Reference Range Interpretation [...] OF TISSUE PIECES: Multipl eSUBMITTED IN CASSETTE(S): [id number]: FormalinCOMMENT S:Irregular ly shaped tissu e fragments and clotted blo od. Filteredand ent irely submitted. PATHOLOGIST: (test (NOTE) Angel Hamilton M.D. code = 8250) Specimens proce ssed at [facility], [address] [place] [address], Phone: , CLIA: [id number] i nterpreted at [facility], [address] [address], , CLIA: [id number] CPT: (test code = (NOTE) 93318 [address] OTHERWISE 8400) INDICATED, ALL TESTING PERFORMED [facility] PATH[facility] [address] [place], [place] [id number] [place] [address] DIRECTOR: ONELIA MARC M.D. CLIA NUMBER [id number] CAP ACCREDITATION N O. [id number] LIPID [id number] 03:24:51 Test Item Value Reference Range Interpretation [...] MOREINFORMATION , SEE CLIENT ANNOUNCE MENT AT [email or web address] RATIO LDL/HDL 2.98 RATIO <3.22 UNLESS O THERWISE (test code = 2238) INDICATED , ALL TESTING PERFORMED [facility], [id number] [place] [address] DIRECTOR: ONELIA MARC M.D. CLIA NUMBER [id number] CAP ACCREDITATION N O. [id number] CBC W/AUTO DIFF WITH [id number] 02:59:19 Test Item Value Reference Range Interpretation [...] RBCS 0.00 K/UL 0.00-0.11 (test code = 46755)
--- NOTE | 2023-02-24 19:05 | RAD REPORT ---
EXAM DESCRIPTION: US - Extremity Venous Uni Ltd - 02/24/2023 7:00 pm CLINICAL HISTORY: PAIN Leg swelling and edema. COMPARISON: No comparisons FINDINGS: Right lower extremity venous system was interrogated with Doppler technique. Normal flow, compressibility and augmentation was noted. There is no DVT present. IMPRESSION: No evidence of right lower extremity deep venous thrombosis.
--- NOTE | 2023-02-24 19:06 | RAD REPORT ---
EXAM DESCRIPTION: US - Lower Extremity Artery Uni Ltd - 02/24/2023 7:00 pm CLINICAL HISTORY: NUMBNESS/TINGLING COMPARISON: No comparisons FINDINGS: Sonographic interrogation of the right lower extremity arterial system was performed. No flow visible in the proximal to mid superficial femoral artery. Distal to this level, monophasic flow with seen throughout. No flow was seen in the dorsalis pedis ar allison. IMPRESSION: Right superficial femoral artery occlusion. Monophasic flow seen distally in the leg.
--- NOTE | 2023-02-24 20:06 | EDPHYS ---
Physician Documentation [facility] Name: Paola Ji Age: 67 yrs Sex: Female : 1955 Arrival Date: 02/24/2023 Time: 16:52 Bed 12 Private MD: ED Physician Gil Shanks HPI: 02/24 20:49 This 67 yrs old Black Female presents to ER via Ambulatory with complaints of Leg Pain, kb Numbness. 20:49 The patient presents with pain, numbness. The complaints affect the right calf and kb dorsum of right foot. Context: The problem was sustained at home, resulted from an unknown cause, the patient can fully bear weight. Onset: The symptoms/episode began/occurred 5 day(s) ago. Modifying factors: The symptoms are alleviated by nothing. the symptoms are aggravated by nothing. Associated signs and symptoms: Pertinent positives: calf tenderness, numbness. Treatment prior to arrival includes: no previous treatment. Severity of symptoms: At their worst the symptoms were mild, moderate, in the emergency department the symptoms are unchanged. The patient has not experienced similar symptoms in the past. The patient has not recently seen a physician. Pt reports numbness to right foot and pain to right calf that started 5 days ago. . Historical: - Allergies: 17:12 No Known Allergies; cm10 - PMHx: 17:12 Hypercholesterolemia; Hypertension; CHF; cm10 - Immunization history:: Adult Immunizations unknown. - Social history:: Smoking status: Patient reports the use of cigarette tobacco products, denies chronic smoking, but will smoke occasionally. ROS: 20:46 Constitutional: Negative for fever, chills, and weight loss. kb 20:46 MS/extremity: Positive for pain in right calf, numbness in right foot. 20:46 All other systems are negative. Exam: 20:46 Constitutional: This is a well developed, well nourished patient who is awake, alert, kb and in no acute distress. Head/Face: Normocephalic, atraumatic. ENT: Moist Mucous membranes Cardiovascular: Regular rate and rhythm with a normal S1 and S2. No gallops, murmurs, or rubs. No pulse deficits. Respiratory: Respirations even and unlabored. No increased work of breathing. Talking in full sentences Abdomen/GI: Soft, non-tender. No distention Skin: Warm, dry with normal turgor. Normal color. Neuro: Awake and alert, GCS 15, oriented to person, place, time, and situation. Moves all extremities. Normal gait. 20:46 Musculoskeletal/extremity: Extremities: grossly normal except: noted in the right calf: pain, noted in the right foot: numbness, ROM: intact in all extremities, Pulses: noted to be 1+ in the right dorsalis pedis artery, Perfusion: the extremity is warm, decreased sensation, Weight bearing: able to fully bear weight. Vital Signs: 17:10 BP 130 / 83; Pulse 79; Resp 16; Temp 97.5; Pulse Ox 100% ; Weight 74.84 kg; Height 5 cm10 ft. 6 in. ; Pain 10/10; 19:07 BP 107 / 69; Pulse 78; Resp 15; Pulse Ox 98% ; Pain 10/10; jl7 20:00 BP 111 / 65; Pulse 79; Resp 18 S; Pulse Ox 99% on R/A; ha1 17:10 Body Mass Index 26.63 (74.84 kg, 167.64 cm) cm10 17:10 Pain Scale: Adult cm10 19:07 Pain Scale: Adult jl7 MDM: 17:12 Patient medically screened. kb 20:47 Differential diagnosis: dvt, arterial occlusion, neuropathy. Data reviewed: vital kb signs, nurses notes. Management of patient was discussed with the following: Dr Brannon, will see pt in office at 0830 tomorrow morning. Counseling: I had a detailed discussion with the patient and/or guardian regarding the historical points, exam findings, and any diagnostic results supporting the discharge/admit diagnosis, the need for outpatient follow up, vascular. 02/24 17:14 Order name: Extremity Venous Unilateral Ltd; Complete Time: 19:14 kb 02/24 17:14 Order name: Lower Extremity Artery Uni Ltd; Complete Time: 19:14 kb Administered Medications: No medications were administered Disposition: 02/25 11:28 Co-signature as Attending Physician, Gil NEGRETE was immediately available on-site ms3 in the Emergency Department for consultation in the care of the patient. Disposition Summary: 02/24/23 20:06 Discharge Ordered Location: Home kb Condition: Stable kb Diagnosis - Right superficial femoral artery occlusion kb Followup: kb - With: Emergency Department - When: As needed - Reason: Worsening of condition Followup: kb - With: Private Physician - When: 2 - 3 days - Reason: Recheck today's complaints, Continuance of care, Re-evaluation by your physician Discharge Instructions: - Discharge Summary Sheet kb - Peripheral Vascular Disease, [id number] kb Forms: - Medication Reconciliation Form kb - Thank You Letter kb - Antibiotic Education kb - Prescription Opioid Use kb - Patient Portal Instructions kb - Leadership Thank You Letter kb Signatures: Dispatcher [employer] EDJoyce Salgado, ANALI-C ANALI-Gil Palomo DO DO ms3 Kyra Lima, RN RN cm10
--- NOTE | 2023-02-24 20:06 | ER ---
Nurse's Notes [facility] Name: Paola Ji Age: 67 yrs Sex: Female : 1955 Arrival Date: 02/24/2023 Time: 16:52 Bed 12 Private MD: Diagnosis: Right superficial femoral artery occlusion Presentation: 02/24 17:10 Chief complaint: Patient states: right foot numbness and calf pain that is worse with cm10 walking onset last Thursday. Pt denies any trauma or injury. Pt states that she walks a lot for work. Coronavirus screen: Vaccine status: Patient reports receiving the 2nd dose of the covid vaccine. Client denies travel out of the [place] in the last 14 days. Ebola Screen: Patient denies travel to an Ebola-affected area in the 21 days before illness onset. No symptoms or risks identified at this time. Initial Sepsis Screen: Does the patient meet any 2 criteria? No. Patient's initial sepsis screen is negative. Does the patient have a suspected source of infection? No. Patient's initial sepsis screen is negative. Risk Assessment: Do you want to hurt yourself or someone else? Patient reports no desire to harm self or others. Onset of symptoms was February 24, 2023. 17:10 Method Of Arrival: Ambulatory cm10 17:10 Acuity: JAIMEE 3 cm10 Historical: - Allergies: 17:12 No Known Allergies; cm10 - PMHx: 17:12 Hypercholesterolemia; Hypertension; CHF; cm10 - Immunization history:: Adult Immunizations unknown. - Social history:: Smoking status: Patient reports the use of cigarette tobacco products, denies chronic smoking, but will smoke occasionally. Screenin:07 [facility] ED Fall Risk Assessment (Adult) History of falling in the last 3 months, jl7 including since admission No falls in past 3 months (0 pts) Score/Fall Risk Level 0 - 2 = Low Risk Oriented to surroundings, Maintained a safe environment. Abuse screen: Denies threats or abuse. Denies injuries from another. Nutritional screening: No deficits noted. Tuberculosis screening: No symptoms or risk factors identified. Assessment: 18:30 General: Appears in no apparent distress. uncomfortable, Behavior is calm, cooperative, jl7 appropriate for age. Pain: Complains of pain in right leg Pain currently is 10 out of 10 on a pain scale. Neuro: Level of Consciousness is awake, alert, obeys commands, Oriented to person, place, time, situation. Cardiovascular: Patient's skin is warm and dry. Respiratory: Airway is patent Respiratory effort is even, unlabored, Respiratory pattern is regular, symmetrical. Derm: Skin is pink, warm \T\ dry. Musculoskeletal: Swelling absent. 19:30 Reassessment: Patient and/or family updated on plan of care and expected duration. Pain ha1 level reassessed. Patient is alert, oriented x 3, equal unlabored respirations, skin warm/dry/pink. 20:23 Reassessment: Patient and/or family updated on plan of care and expected duration. Pain ha1 level reassessed. Patient is alert, oriented x 3, equal unlabored respirations, skin warm/dry/pink. Vital Signs: 17:10 BP 130 / 83; Pulse 79; Resp 16; Temp 97.5; Pulse Ox 100% ; Weight 74.84 kg; Height 5 cm10 ft. 6 in. ; Pain 10/10; 19:07 BP 107 / 69; Pulse 78; Resp 15; Pulse Ox 98% ; Pain 10/10; jl7 20:00 BP 111 / 65; Pulse 79; Resp 18 S; Pulse Ox 99% on R/A; ha1 17:10 Body Mass Index 26.63 (74.84 kg, 167.64 cm) cm10 17:10 Pain Scale: Adult cm10 19:07 Pain Scale: Adult jl7 ED Course: 16:57 Patient arrived in ED. kj1 17:12 Triage completed. cm10 17:12 Joyce Santiago [facility]C [facility] kb 17:12 Gil Shanks DO is Attending Physician. kb 17:12 Arm band placed on Patient placed in waiting room. cm10 18:28 Tony Diaz, JB is Primary Nurse. jl7 18:30 Patient has correct armband on for positive identification. Provided Education on: use jl7 of call caceres. 19:01 US Extremity Venous Unilateral Ltd In Process Unspecified. EDMS 19:01 US Lower Extremity Artery Uni Ltd In Process Unspecified. EDMS 20:24 No provider procedures requiring assistance completed. Patient did not have IV access ha1 during this emergency room visit. Administered Medications: No medications were administered Medication: 19:07 VIS not applicable for this client. jl7 Outcome: 20:06 Discharge ordered by MD. aguirre 20:24 Discharged to home ambulatory. ha1 20:24 Condition: stable 20:24 Discharge instructions given to patient, Instructed on discharge instructions, follow up and referral plans. Demonstrated understanding of instructions, follow-up care. 20:24 Patient left the ED. ha1 Signatures: Dispatcher [employer] EDWY Joyce Santiago, Tony Woodward RN RN jl7 Vannesa Santiago kj1 Amy Mary RN RN ha1 Kyra Lima RN RN cm10
[2023-02-24 21:11] VITALS: TEMP 97.5
[2023-02-24 21:13] VITALS: BP 111/65; O2SAT 99
== END 2023-02-24 20:24 | disposition home or self-care (01) ==
LOC: ER 16:52
DX: I74.3 Embolism and thrombosis of arteries of the lower extremities (principal); I10 Essential (primary) hypertension; F17.210 Nicotine dependence, cigarettes, uncomplicated
CPT/HCPCS: 93926; 93971

== ENCOUNTER 2023-07-29 09:37 | Inpatient (IN) | payer OTHER ==
--- OUTSIDE RECORDS SUMMARY | 2023-07-29 09:41 | XMS REPORT | Continuity of Care Document ---
Author Name Unknown Address [address] [facility] Carlos Eduardo. [address] [place], [place] [address] [place] [address] thconnect Address [address] [facility]. [address] [place] [address] Care Team Providers Care Scientific Director Name Role Phone MYRNA GRULLON Primary Care Physician ANGELO Roblero Attending Clinician Unavailable YENI AVILES Attending Clinician Unavailable RADIOLOGY Attending Clinician Unavailable BRITT SENDLUCY K.HDavid Attending Clinician Laura De La Torre MD, [facility] Attending Clinician Pob, Ad[facility] Lab Main Attending Clinician Unavailabl e Doctor Unassigned, [place] Attending Clinician U navailable Payers Payer Name Policy Type Policy Number Effective Date Expirati on Date Source [employer] MEDICARE OUT OF NETWORK [id number] 2022 00:00:00 [employer] MEDICARE ADVANTAGE [id number] 2019 00:00:00 Allergies, Adverse Reactions, Alerts Allergy Name Allergy Type Status Severity Reaction(s) Onset Date Inactive Date Treating Clinician Comments Source NO KNOWN ALLERGIE S Drug Class [facility] Social History Social Habit Start Date Stop Date Quantity Comments Source History of tobacco use Cigarette Smoker [facility] Sex Assigned At [facility] Exposure to SARS-CoV-2 (event) Not sure [facility] Tobacco use and exposure 2020-06-08 00:00:00 2020-06-08 00:00:00 Never used [facility] Tobacco Comment 2018-10-08 00:00:00 2018-10-08 00:00:00 2 Ciggs a week [facility] Smoking Status Start Date Stop Date Source Current some day smoker 2020-06-08 00:00:00 [facility] Medications Ordered Medication Name Filled Medication Name Start Date Stop Date Current Medication? Ordering Clinician Indication Dosage Frequency Signature (SIG) Comments Components Source hydroCHLORO thiazide 12.5 mg capsule 08-05 00:00: 00 Yes [id number] TAKE 1 CAPSULE BY MOUTH EVERY DAY [facility] AMLODIPINE 5 mg tablet 2019-06 00:00: 00 Yes [id number] TAKE 1 TABLET BY MOUTH EVERY DAY [facility] CARVEDILOL 12.5 mg tablet 2019-06 00:00: 00 Yes [id number] TAKE 1 TABLET BY MOUTH TWICE A DAY WITH MEALS [facility] AMLODIPINE 5 mg tablet 2019-06 00:00: 00 Yes [id number] TAKE 1 TABLET BY MOUTH EVERY DAY [facility] CARVEDILOL 12.5 mg tablet 2019-06 00:00: 00 Yes [id number] TAKE 1 TABLET BY MOUTH TWICE A DAY WITH MEALS [facility] atorvastati n 20 mg tablet 2019-06 00:00: 00 Yes 20mg Take 1 tablet by mouth at bedtime. [facility] atorvastati n 20 mg tablet 2019-06 00:00: 00 Yes 20mg Take 1 tablet by mouth at bedtime. [facility] atorvastati n 20 mg tablet 2019-06 00:00: 00 Yes 20mg Take 1 tablet by mouth at bedtime. [facility] hydroCHLORO thiazide 12.5 mg capsule 2019-06 00:00: 00 Yes [id number] TAKE ONE CAPSULE BY MOUTH EVERY DAY [facility] hydroCHLORO thiazide 12.5 mg capsule 2019-06 00:00: 00 Yes [id number] TAKE ONE CAPSULE BY MOUTH EVERY DAY [facility] hydroCHLORO thiazide 12.5 mg capsule 2019-06 00:00: 00 Yes [id number] TAKE ONE CAPSULE BY MOUTH EVERY DAY [facility] hydroCHLORO thiazide 12.5 mg capsule 2019-06 00:00: 00 Yes [id number] TAKE ONE CAPSULE BY MOUTH EVERY DAY [facility] hydroCHLORO thiazide 12.5 mg capsule 2019-06 00:00: 00 Yes [id number] TAKE ONE CAPSULE BY MOUTH EVERY DAY [facility] hydroCHLORO thiazide 12.5 mg capsule 2019-06 00:00: 00 08-05 00:00 :00 No [id number] TAKE ONE CAPSULE BY MOUTH EVERY DAY [facility] amLODIPine 5 mg tablet 2019-06 00:00: 00 07-09 05:59 :00 No [id number] 5mg Take 1 tablet by mouth daily for 30 days. [facility] carvediloL 12.5 mg tablet 2019-06 00:00: 00 07-09 05:59 :00 No [id number] 12.5mg Take 1 tablet by mouth 2 (two) times daily with meals for 30 days. [facility] lovastatin 20 mg tablet 2019-06 00:00: 00 07-09 05:59 :00 No [id number] 20mg Take 1 tablet by mouth daily for 30 days. [facility] amLODIPine 5 mg tablet 2019-06 00:00: 00 07-09 05:59 :00 No [id number] 5mg Take 1 tablet by mouth daily for 30 days. [facility] carvediloL 12.5 mg tablet 2019-06 00:00: 00 07-09 05:59 :00 No [id number] 12.5mg Take 1 tablet by mouth 2 (two) times daily with meals for 30 days. [facility] lovastatin 20 mg tablet 2019-06 00:00: 00 07-09 05:59 :00 No [id number] 20mg Take 1 tablet by mouth daily for 30 days. [facility] amLODIPine 5 mg tablet 2019-06 00:00: 00 07-09 05:59 :00 No [id number] 5mg Take 1 tablet by mouth daily for 30 days. [facility] carvediloL 12.5 mg tablet 2019-06 00:00: 00 07-09 05:59 :00 No [id number] 12.5mg Take 1 tablet by mouth 2 (two) times daily with meals for 30 days. [facility] lovastatin 20 mg tablet 2019-06 00:00: 00 07-09 05:59 :00 No [id number] 20mg Take 1 tablet by mouth daily for 30 days. [facility] amLODIPine 5 mg tablet 2019-06 00:00: 00 06-14 00:00 :00 No [id number] 5mg Take 1 tablet by mouth daily for 30 days. [facility] carvediloL 12.5 mg tablet 2019-06 00:00: 00 06-14 00:00 :00 No [id number] 12.5mg Take 1 tablet by mouth 2 (two) times daily with meals for 30 days. [facility] amLODIPine 5 mg tablet 2019-06 00:00: 06-14 00:00 :00 No [id number] 5mg Take 1 tablet by mouth daily for 30 days. [facility] carvediloL 12.5 mg tablet 2019-06 00:00: 00 06-14 00:00 :00 No [id number] 12.5mg Take 1 tablet by mouth 2 (two) times daily with meals for 30 days. [facility] lovastatin 20 mg tablet 2019-06 00:00: 00 06-13 00:00 :00 No [id number] 20mg Take 1 tablet by mouth daily for 30 days. [facility] lovastatin 20 mg tablet 08-26 00:00: 00 Yes 20mg Take 20 mg by mouth daily. [facility] lovastatin 20 mg tablet 08-26 00:00: 00 Yes 20mg Take 20 mg by mouth daily. [facility] lovastatin 20 mg tablet 08-26 00:00: 00 06-08 00:00 :00 No 20mg Take 20 mg by mouth daily. [facility] lovastatin 20 mg tablet 2-28 00:00: 00 06-08 00:00 :00 No 20mg Take 20 mg by mouth daily. [facility] hydroCHLORO thiazide 12.5 mg capsule 03-09 00:00: 00 Yes [id number] TAKE ONE CAPSULE BY MOUTH EVERY DAY [facility] hydroCHLORO thiazide 12.5 mg capsule 03-09 00:00: 00 Yes [id number] TAKE ONE CAPSULE BY MOUTH EVERY DAY [facility] hydroCHLORO thiazide 12.5 mg capsule 03-09 00:00: 00 Yes [id number] TAKE ONE CAPSULE BY MOUTH EVERY DAY [facility] hydroCHLORO thiazide 12.5 mg capsule 03-09 00:00: 00 06-08 00:00 :00 No [id number] TAKE ONE CAPSULE BY MOUTH EVERY DAY [facility] hydroCHLORO thiazide 12.5 mg capsule 03-09 00:00: 00 06-08 00:00 :00 No [id number] TAKE ONE CAPSULE BY MOUTH EVERY DAY [facility] amLODIPine 5 mg tablet 03-04 00:00: 00 Yes [id number] 5mg Take 1 tablet by mouth daily. [facility] amLODIPine 5 mg tablet 03-04 00:00: 00 Yes [id number] 5mg Take 1 tablet by mouth daily. [facility] amLODIPine 5 mg tablet 03-04 00:00: 00 Yes [id number] 5mg Take 1 tablet by mouth daily. [facility] amLODIPine 5 mg tablet 03-04 00:00: 00 Yes [id number] 5mg Take 1 tablet by mouth daily. [facility] amLODIPine 5 mg tablet 03-04 00:00: 00 06-08 00:00 :00 No [id number] 5mg Take 1 tablet by mouth daily. [facility] amLODIPine 5 mg tablet 03-04 00:00: 00 06-08 00:00 :00 No [id number] 5mg Take 1 tablet by mouth daily. [facility] carvedilol 12.5 mg tablet 02-23 00:00: 00 Yes [id number] 12.5mg Take 1 tablet by mouth 2 (two) times daily with meals. [facility] carvedilol 12.5 mg tablet 02-23 00:00: 00 Yes [id number] 12.5mg Take 1 tablet by mouth 2 (two) times daily with meals. [facility] carvedilol 12.5 mg tablet 02-23 00:00: 00 Yes [id number] 12.5mg Take 1 tablet by mouth 2 (two) times daily with meals. [facility] carvedilol 12.5 mg tablet 02-23 00:00: 00 Yes [id number] 12.5mg Take 1 tablet by mouth 2 (two) times daily with meals. [facility] carvedilol 12.5 mg tablet 02-23 00:00: 00 Yes [id number] 12.5mg Take 1 tablet by mouth 2 (two) times daily with meals. [facility] carvedilol 12.5 mg tablet 02-23 00:00: 00 Yes [id number] 12.5mg Take 1 tablet by mouth 2 (two) times daily with meals. [facility] carvedilol 12.5 mg tablet 02-23 00:00: 00 06-08 00:00 :00 No [id number] 12.5mg Take 1 tablet by mouth 2 (two) times daily with meals. [facility] carvedilol 12.5 mg tablet 02-23 00:00: 00 06-08 00:00 :00 No [id number] 12.5mg Take 1 tablet by mouth 2 (two) times daily with meals. [facility] amLODIPine 5 mg tablet 09-27 00:00: 00 Yes [id number] TAKE 1 TABLET BY MOUTH EVERY DAY [facility] amLODIPine 5 mg tablet 09-27 00:00: 00 Yes [id number] TAKE 1 TABLET BY MOUTH EVERY DAY [facility] amLODIPine 5 mg tablet 09-27 00:00: 00 Yes [id number] TAKE 1 TABLET BY MOUTH EVERY DAY [facility] carvedilol 6.25 mg tablet 09-27 00:00: 00 Yes [id number] TAKE 1 TABLET BY MOUTH TWICE A DAY [facility] amLODIPine 5 mg tablet 09-27 00:00: 00 03-04 00:00 :00 No [id number] TAKE 1 TABLET BY MOUTH EVERY DAY [facility] carvedilol 6.25 mg tablet 09-27 00:00: 00 02-23 00:00 :00 No [id number] TAKE 1 TABLET BY MOUTH TWICE A DAY [facility] carvedilol 6.25 mg tablet 09-27 00:00: 00 02-23 00:00 :00 No [id number] TAKE 1 TABLET BY MOUTH TWICE A DAY [facility] famotidine 20 mg tablet 07-21 00:00: 00 Yes [id number] TAKE 1 TABLET BY MOUTH EVERY 12 HOURS FOR 10 DAYS [facility] famotidine 20 mg tablet 07-21 00:00: 00 Yes [id number] TAKE 1 TABLET BY MOUTH EVERY 12 HOURS FOR 10 DAYS [facility] famotidine 20 mg tablet 07-21 00:00: 00 Yes [id number] TAKE 1 TABLET BY MOUTH EVERY 12 HOURS FOR 10 DAYS [facility] famotidine 20 mg tablet 07-21 00:00: 00 Yes [id number] TAKE 1 TABLET BY MOUTH EVERY 12 HOURS FOR 10 DAYS [facility] famotidine 20 mg tablet 07-21 00:00: 00 Yes [id number] TAKE 1 TABLET BY MOUTH EVERY 12 HOURS FOR 10 DAYS [facility] famotidine 20 mg tablet 07-21 00:00: 00 Yes [id number] TAKE 1 TABLET BY MOUTH EVERY 12 HOURS FOR 10 DAYS [facility] famotidine 20 mg tablet 07-21 00:00: 00 Yes [id number] TAKE 1 TABLET BY MOUTH EVERY 12 HOURS FOR 10 DAYS [facility] famotidine 20 mg tablet 07-21 00:00: 00 Yes [id number] TAKE 1 TABLET BY MOUTH EVERY 12 HOURS FOR 10 DAYS [facility] famotidine 20 mg tablet 07-21 00:00: 00 Yes [id number] TAKE 1 TABLET BY MOUTH EVERY 12 HOURS FOR 10 DAYS [facility] famotidine 20 mg tablet 07-21 00:00: 00 Yes [id number] TAKE 1 TABLET BY MOUTH EVERY 12 HOURS FOR 10 DAYS [facility] famotidine 20 mg tablet 07-21 00:00: 00 Yes [id number] TAKE 1 TABLET BY MOUTH EVERY 12 HOURS FOR 10 DAYS [facility] famotidine 20 mg tablet 07-21 00:00: 00 Yes [id number] TAKE 1 TABLET BY MOUTH EVERY 12 HOURS FOR 10 DAYS [facility] famotidine 20 mg tablet 07-21 00:00: 00 Yes [id number] TAKE 1 TABLET BY MOUTH EVERY 12 HOURS FOR 10 DAYS [facility] HYDROCHLORO THIAZIDE 12.5 mg capsule 12-23 00:00: 00 Yes [id number] TAKE ONE CAPSULE BY MOUTH EVERY DAY [facility] HYDROCHLORO THIAZIDE 12.5 mg capsule 12-23 00:00: 00 Yes [id number] TAKE ONE CAPSULE BY MOUTH EVERY DAY [facility] HYDROCHLORO THIAZIDE 12.5 mg capsule 12-23 00:00: 00 Yes [id number] TAKE ONE CAPSULE BY MOUTH EVERY DAY [facility] HYDROCHLORO THIAZIDE 12.5 mg capsule 12-23 00:00: 00 Yes [id number] TAKE ONE CAPSULE BY MOUTH EVERY DAY [facility] HYDROCHLORO THIAZIDE 12.5 mg capsule 12-23 00:00: 00 03-08 00:00 :00 No [id number] TAKE ONE CAPSULE BY MOUTH EVERY DAY [facility] Vital Signs Vital Name Observation Time Observation Value Comments S pardeep Body weight 2020-06-08 17:41:00 80.06 kg [facility] BMI 2020-06-08 17:41:00 28.49 kg/m2 [facility] Oxygen saturation in Arterial blood by Pulse oximetry 2020-06-08 17:41:00 100 /min [facility] Systolic blood pressure 2020-06-08 17:41:00 129 mm[Hg] [facility] Diastolic blood pressure 2020-06-08 17:41:00 79 mm[Hg] [facility] Heart rate 2020-06-08 17:41:00 79 /min [facility] Body height 2020-06-08 17:41:00 167.6 cm [facility] Systolic blood pressure 2019-02-23 13:48:00 137 mm[Hg] [facility] Diastolic blood pressure 2019-02-23 13:48:00 91 mm[Hg] [facility] Heart rate 2019-02-23 13:46:00 93 /min [facility] Respiratory rate 2019-02-23 13:46:00 20 /min [facility] Body height 2019-02-23 13:46:00 167.6 cm [facility] Body weight 2019-02-23 13:46:00 76.204 kg [facility] BMI 2019-02-23 13:46:00 27.12 kg/m2 [facility] Oxygen saturation in Arterial blood by Pulse oximetry 2019-02-23 13:46:00 98 /min [facility] Procedures Procedure Date / Time Performed Performing Clinicia n Source ASSIGNMENT OF BENEFITS 2020-06-08 17:09:49 Docto r Unassigned, [place] [facility] PATIENT FINANCIAL POLICY 2019-02-23 13:24:08 Doctor Unassigned, [place] [facility] Encounters Start Date/Time End Date/Time Encounter Type Admission Type Attending Clinicians Care Facility Care Department Encounter ID Source 2023-07-02 17:02:13 2023-07-02 17:02:[address] [facility] [id number] Herman Escobedo Darren 2023-05-27 15:00:28 2023-05-27 15:00:[address] [facility] [id number] Herman Escobedo Darren 2023-05-26 08:04:23 2023-05-26 08:04:23 Outpatient [facility] [id number] Herman Escobedo Darren 2023-04-06 13:32:37 2023-04-06 13:32:37 Outpatient [facility] [id number] Herman Banks 2023-03-24 13:47:06 2023-03-24 13:47:06 Outpatient [facility] [id number] Herman Banks 2023-03-24 09:00:00 2023-03-24 09:00:00 Outpatient R CHRISTIANO ANGELO [facility] [id number] [facility] 2023-03-18 15:16:26 2023-03-18 15:16:26 Outpatient [facility] [id number] Herman Banks 2023-03-17 10:00:00 2023-03-17 10:00:00 Outpatient R YENI AVILES [facility] [id number] [facility] 2023-03-13 00:00:00 2023-03-13 00:00:00 Outpatient R RADIOLOGY [facility] [id number] [facility] 2023-02-27 00:00:00 2023-02-27 00:00:00 Outpatient R RADIOLOGY [facility] [id number] [facility] 2023-02-03 09:50:32 2023-02-03 09:50:32 Outpatient [facility] [id number] Herman Banks 2023-01-22 09:04:13 2023-01-22 09:04:13 Outpatient [facility] [id number] Herman Gregg Banks 2023-01-15 16:27:42 2023-01-15 16:27:42 Outpatient [facility] [id number] Herman Banks 2022-11-25 09:42:27 2022-11-25 09:42:27 Outpatient [facility] [id number] Herman Banks 2022-11-10 00:00:00 2022-11-10 00:00:00 Outpatient R RADIOLOGY [facility] [id number] [facility] 2022-11-04 15:22:35 2022-11-04 15:22:35 Outpatient [facility] [id number] Herman Banks 2022-10-02 08:20:28 2022-10-02 08:20:28 Outpatient [place] [id number] Herman Banks 2022-09-24 11:05:18 2022-09-24 11:05:18 Outpatient [facility] [id number] Herman Banks 2022-09-17 16:33:30 2022-09-17 16:33:30 Outpatient [place] [id number] Herman Banks 2022-08-04 16:50:10 2022-08-04 16:50:10 Outpatient [place] [id number] Herman Escobedo Darren 2021-06-13 15:30:00 2021-06-13 15:30:00 Outpatient R HENRIQUE DE LA TORRE [facility] [id number] [facility] 2020-08-05 00:00:00 2020-08-05 00:00:00 Refill Henrique De La Torre [facility] [id number] [facility] 2020-06-13 00:00:00 2020-06-13 00:00:00 Refill Henrique De La Torre [facility] [id number] [facility] 2020-06-13 00:00:00 2020-06-13 00:00:00 Telephone Henrique De La Torre [facility] [id number] [facility] 2020-06-08 12:12:18 2020-06-08 12:27:18 Radiation Oncology Manager Visit Pob, Adc Lab Main Henrique De La Torre [facility] [id number] [id number] [facility] 2020-06-08 11:11:00 2020-06-08 11:56:42 Office Visit Henrique De La Torre [facility] [id number] [facility] 2020-06-08 11:30:00 2020-06-08 11:30:00 Outpatient R HENRIQUE DE LA TORRE [facility] [id number] [facility] 2020-06-08 00:00:00 2020-06-08 00:00:00 Orders Only Doctor Unassigned, [place] [facility] [id number] [facility] 2020-05-15 11:00:00 2020-05-15 11:00:00 Outpatient R HENRIQUE DE LA TORRE [facility] [id number] [facility] 2020-03-29 09:30:00 2020-03-29 09:30:00 Outpatient R HENRIQUE DE LA TORRE [facility] [id number] [facility] 2019-09-15 08:53:59 2019-09-15 16:53:37 Telemedici ne Visit Henrique De La Torre [facility] [id number] [facility] 2019-09-15 09:00:00 2019-09-15 09:00:00 Outpatient R HENRIQUE DE LA TORRE [facility] [id number] [facility] 2019-09-13 11:00:00 2019-09-13 11:00:00 Outpatient R HENRIQUE DE LA TORRE [facility] [id number] [facility] 2019-03-08 00:00:00 2019-03-08 00:00:00 Refill Henrique De La Torre [facility] [id number] [id number] [facility] 2019-03-04 00:00:00 2019-03-04 00:00:00 Refill Henrique De La Torre [facility] [id number] [id number] [id number] [facility] 2019-02-23 08:26:01 2019-02-23 09:04:19 Office Visit Rehana De La Torrelucy KandisDavid [facility] [id number] [id number] [id number] [id number] [facility] 2019-02-23 00:00:00 2019-02-23 00:00:00 Orders Only Doctor Unassigned, [place] [facility] [id number] [id number] [id number] [facility] Results Test Description Test Time Test Comments Results Result Co mments Source TSH, THIRD [id number] 04:26:15* Test Item Value Reference Range Interpretation Comme nts TSH, THIRD GENERATION (test code = 2821) 0.721 UIU/ML 0.400-4.100 FREE T4 (THYROXINE)2023-02-04 04:26:15* Test Item Value Reference Range Interpretation Comme nts FREE T4 (THYROXINE) (test code = 2823) 1.11 NG/DL 0.80-1.90 UNLESS OTHERWISE INDICATED, ALL TESTING PERFORMED AT [facility] [address] [place] [address] WORKSHOP MANAGER: ROCHELLE GOMES M.D. CLIA NUMBER [id number] [facility] [place]. [id number] THYROXINE, FREE, [id number] 09:22:02* Test Item Value Reference Range Interpretation Comme nts THYROXINE, FREE, DIAL (test code = 18230) 2.4 ng/dL 1.1-2.4 FREE T4 BY EQUIL DIALYSIS-TMS: REFERENCE INTERVALS 1ST TRIMESTER ...... 0.7 - 2.0 ng/dL 2ND TRIMESTER ...... 0.7 - 2.1 ng/dL 3RD TRIMESTER ...... 0.5 - 1.6 ng/dLINTERPRETIVE INFORMATION: FT4 ED-TMSThis test was developed and its performance characteristics determined by [employer]. It has not been cleared or approved by the [place] Food and Drug Administration. This test was performed in a CLIA certified laboratory and is intended for clinical purposes. TESTING PERFORMED AT [facility], [address] [address] [place]. [id number] CLIA NO. [id number] THYROTROPIN RECEPTOR [id number] 12:59:32* Test Item Value Reference Range Interpretation Comme nts TRAB (test code = 60298) 1.36 IU/L <1.75 TESTING PERFORME D AT [facility] [address] [place] [address], [address], [place] [address] CLIA NO: [id number] THYROID PEROXIDASE [id number] 03:59:09* Test Item Value Reference Range Interpretation Comme nts THYROID PEROXIDASE AB (test code = 16283) 11 IU/ML See_Comment EFFECTIVE 2022, NEW REFERENCE RANGE CHANGE ASSOCIATEDWITH CHANGE IN METHODOLOGY.NEW METHODOLOGY IS DAGMAR ELECTROCHEMILUMINESCENCE IMMUNOASSAY(ECLIA). [Automated message] The system which generated this result transmitted reference range: <=34. The reference range was not used to interpret this result as normal/abnormal. FREE [id number] 03:58:41* Test Item Value Reference Range Interpretation Comme nts FREE T3 (test code = 4273) 3.2 PG/ML 2.2-4.2 TSH REFLEX TO FREE [id number] 03:58:41* Test Item Value Reference Range Interpretation Comme nts TSH REFLEX TO FREE T4 (test code = 2834) 0.377 UIU/ML 0.400-4.100 L FREE T4 (THYROXINE)2022-11-05 03:58:41* Test Item Value Reference Range Interpretation Comme nts FREE T4 (THYROXINE) (test code = 2823) 1.23 NG/DL 0.80-1.90 UNLESS OTHERWISE INDICATED, ALL TESTING PERFORMED AT [facility] [address] [place] [address] WORKSHOP MANAGER: ROCHELLE GOMES M.D. CLIA NUMBER [id number] [place]. [id number] OCCULT BLD,FECAL,IMMUNOASSAY [id number] 11:10:46* Test Item Value Reference Range Interpretation Comme nts OCCULT BLD, FECAL (test code = 32386) NEGATIVE NEGATIVE [facility] has important pathology staff changes effective 08/27/2022. New pathology staff will provide uninterrupted, excellent patient care and clinical consultation. See URL: [email or web address]. UNLESS OTHERWISE INDICATED, ALL TESTING PERFORMED AT [facility] [address] [place] [address] WORKSHOP MANAGER: ROCHELLE GOMES M.D. CLIA NUMBER [id number] [place]. [id number] HEPATITIS PANEL, [id number] 04:58:56* Test Item Value Reference Range Interpretation Comme nts HEPATITIS A IgM (test code = 82791) NON-REACTIVE NON-REACTIVE HEPATITIS B CORE IgM (test code = 4644) NON-REACTIVE NON-REACTIVE HEPATITIS B SURF AG (test code = 2739) NON-REACTIVE NON-REACTIVE HEPATITIS C ANTIBODY (test code = 4675) NON-REACTIVE NON-REACTIVE INTERPRETATION HEPATITIS A: (test code = 2552) (NOTE) Hepatitis A serology shows no evidence of acute hepatitis A. INTERPRETATION HEPATITIS B: (test code = 55686) (NOTE) Hepatitis B serology shows no evidence of acute hepatitis B andno indication of exposure to hepatitis B virus in the previous sherita eight months. INTERPRETATION HEPATITIS C: (test code = 54622) (NOTE) Hepatitis C serology shows no evidence of exposure to hepatitisC virus at this time. It can take up to 12 months after exposure tothe hepatitis C virus for antibodies to become detectable in the blood in certain patients. TSH, THIRD [id number] 04:26:31* Test Item Value Reference Range Interpretation Comme [facility] TSH, THIRD GENERATION (test code = 2821) 0.378 UIU/ML 0.400-4.100 L [facility] has impo rtant pathology staff changes effective 08/27/2022. New pathology staff will provide uninterrupted, excellent patient care and clinical consultation. See URL: [email or web address]. UNLESS OTHERWISE INDICATED, ALL TESTING PERFORMED AT [facility] [address] [place] [address] WORKSHOP MANAGER: ROCHELLE GOMES M.D. [place] NUMBER [id number] [facility] [place]. [id number] COMPREHENSIVE METABOLIC [id number] 04:23:07* Test Item Value Reference Range Interpretation Comme nts GLUCOSE (test code = 2217) 104 MG/DL 70-99 H BUN (test code = 2208) 8 MG/DL 8-23 CREATININE (test code = 2214) 0.65 MG/DL 0.60-1.30 eGFR (2020 CKD-EPI) (test code = 03771) 96 ML/MIN/1.73 >60 CALC BUN/CREAT (test code = 2235) 12 RATIO 6-28 SODIUM (test code = 2231) 128 MEQ/L 133-146 L POTASSIUM (test code = 2228) 4.3 MEQ/L 3.5-5.4 CHLORIDE (test code = 2215) 90 MEQ/L 95-107 L CARBON DIOXIDE (test code = 2206) 28 MEQ/L 19-31 CALCIUM (test code = 2209) 10.4 MG/DL 8.5-10.5 PROTEIN, TOTAL (test code = 2229) 7.3 G/DL 6.1-8.3 ALBUMIN (test code = 2201) 4.1 G/DL 3.5-5.2 CALC GLOBULIN (test code = 2240) 3.2 G/DL 1.9-3.7 CALC A/G RATIO (test code = 2234) 1.3 RATIO 1.0-2.6 BILIRUBIN, TOTAL (test code = 2207) 0.6 MG/DL See_Comment [Automated me ssage] The system which generated this result transmitted reference range: <=1.2. The reference range was not used to interpret this result as normal/abnormal. ALKALINE PHOSPHATASE (test code = 2204) 134 U/L 40-142 AST (test code = 2218) 22 U/L 9-40 ALT (test code = 2219) 13 U/L 5-40 LIPID [id number] 04:23:07* Test Item Value Reference Range Interpretation Comme nts CHOLESTEROL (test code = 2210) 205 MG/DL <200 H TRIGLYCERIDES (test code = 2232) 70 MG/DL <150 HDL CHOLESTEROL (test code = 2220) 59 MG/DL >39 CALC LDL CHOL (test code = 2237) 130 MG/DL <100 H NOTE: CALCULATED LDL IS BASED ON GREGORIA-LEARY METHOD WHICHINCLUDES ADJUSTABLE TRIGLYCERIDE:VLDL CHOLESTEROL RATIO.THIS FACTOR VARIES BY MEASURED TRIGLYCERIDE AND NON-HDLCHOLESTEROL CONCENTRATIONS WITH INCREASED CALCULATED LDL SEENIN HIGHER TRIGLYCERIDE OR LOWER NON-HDL SPECIMENS. FOR MOREINFORMATION, SEE CLIENT ANNOUNCEMENT AT [email or web address] [email or web address] RATIO LDL/HDL (test code = 2238) 2.20 RATIO <3.22 HEMOGLOBIN [id number] 03:29:45* Test Item Value Reference Range Interpretation Comme nts HEMOGLOBIN A1c (test code = 47765) 5.1 % 4.2-5.6 CBC W/AUTO DIFF WITH [id number] 02:25:42* Test Item Value Reference Range Interpretation Comme nts WBC (test code = 1001) 4.3 K/UL 3.5-11.0 RBC (test code = 1002) 5.33 M/UL 3.80-5.40 HEMOGLOBIN (test code = 1003) 15.1 G/DL 11.5-15.5 HEMATOCRIT (test code = 1004) 46.0 % 34.0-45.0 H MCV (test code = 1005) 86.3 fL 80.0-99.0 MCH (test code = 1006) 28.3 PG 25.0-33.0 MCHC (test code = 1007) 32.8 G/DL 31.0-36.0 RDW (test code = 1038) 13.5 % 11.5-15.0 NEUTROPHILS (test code = 1008) 39.1 % LYMPHOCYTES (test code = 1010) 44.2 % MONOCYTES (test code = 1011) 11.3 % EOSINOPHILS (test code = 1012) 3.3 % BASOPHILS (test code = 1013) 1.6 % IMMATURE GRANULOCYTES (test code = 1036) 0.5 % NUCLEATED RBCS (test code = 1065) 0.0 /100 WBC'S See_Comment [Automated messa ge] The system which generated this result transmitted reference range: 0.0. The reference range was not used to interpret this result as normal/abnormal. PLATELET COUNT (test code = 1015) 290 K/UL 130-400 ABSOLUTE NEUTROPHILS (test code = 1066) 1.66 K/UL 1.50-7.50 ABSOLUTE LYMPHOCYTES (test code = 1067) 1.88 K/UL 1.00-4.00 ABSOLUTE MONOCYTES (test code = 1068) 0.48 K/UL 0.20-1.00 ABSOLUTE EOSINOPHILS (test code = 1040) 0.14 K/UL 0.00-0.50 ABSOLUTE BASOPHILS (test code = 1069) 0.07 K/UL 0.00-0.20 ABS IMMATURE GRANULOCYTES (test code = 1020) 0.02 K/UL 0.00-0.10 ABS NUCLEATED RBCS (test code = 16298) 0.00 K/UL 0.00-0.11 SURGICAL PATHOLOGY [id number] 16:35:30* Test Item Value Reference Range Interpretation Comme nts DIAGNOSIS: (test code = 8200) (NOTE) A) Biopsy - EndometriumEndometrial polyp. MICROSCOPIC DESCRIPTION: (test code = 8210) (NOTE) A) The specimen contains portions of endometrium. Some aspectsof the specimen show features compatible with a benignendometrial polyp. The sections are negative for atypia,malignancy, and diffuse hyperplasia. CLINICAL DATA: (test code = 8401) (NOTE) Not specified . GROSS DESCRIPTION: (test code = 8220) (NOTE) A) SPECIMEN L ABELED: EndometriumSIZE/WEIGHT: 1.25x0.7x0.1 cm AggregateSPECIMEN COLOR: Rice-brownNUMBER OF TISSUE PIECES: MultipleSUBMITTED IN CASSETTE(S): [id number]: FormalinCOMMENTS:Irregularly shaped tissue fragments with mucus and clotted blood. Filtered and entirely submitted. PATHOLOGIST: (test code = 8250) (NOTE) Laila Carter Specimens processed at [facility], [address] [place] [address], , CLIA: [id number] interpreted at [facility], [address] [place], [place] [id number], , CLIA: [id number] CPT: (test code = 8400) (NOTE) [address] UNLESS OTH ERWISE INDICATED, ALL TESTING PERFORMED [facility] [address] [place] [address] WORKSHOP MANAGER: ONELIA MARC M.D. CLIA NUMBER [id number] [facility] [place]. [id number] SURGICAL PATHOLOGY [id number] 13:55:27* Test Item Value Reference Range Interpretation Comme nts DIAGNOSIS: (test code = 8200) (NOTE) A) Polypectomy - CervixUlcerated benign endometrial polyp. MICROSCOPIC DESCRIPTION: (test code = 8210) (NOTE) A) Sections from a cervix polyp show a benign endometrial polyp.The polyp has a surface that has been ulcerated. Where surfaceepithelium is still seen, it ranges from low columnar toflattened. This gives way to a core showing some dense cellularovarian stroma that becomes more fibrotic. This contains somedilated endometrial glands. Quite a bit of vascular congestionis seen along the base. CLINICAL DATA: (test code = 8401) (NOTE) Polyp of cervix uteri GROSS DESCRIPTION: (test code = 8220) (NOTE) A) SPECIMEN L ABELED: CervixSIZE/WEIGHT: 1.8x1.3x0.5 cm AggregateSPECIMEN COLOR: Rice-pinkNUMBER OF TISSUE PIECES: MultipleSUBMITTED IN CASSETTE(S): [id number]: FormalinCOMMENTS:Irregular ly shaped tissue fragments and clotted blood. Filteredand entirely submitted. PATHOLOGIST: (test code = 8250) (NOTE) Ryan Condon M.D. Specimens processed at [facility], [address] [place] [address], , CLIA: [id number] interpreted at [facility], [address] [address], ,CLIA: [id number] CPT: (test code = 8400) (NOTE) [address] UNLESS OTH ERWISE INDICATED, ALL TESTING PERFORMED [facility] [address] [place] [address] WORKSHOP MANAGER: ONELIA MARC M.D. CLIA NUMBER [id number] [place] [id number] LIPID [id number] 03:24:51* Test Item Value Reference Range Interpretation Comme nts CHOLESTEROL (test code = 2210) 208 MG/DL <200 H TRIGLYCERIDES (test code = 2232) 157 MG/DL <150 H HDL CHOLESTEROL (test code = 2220) 45 MG/DL >39 CALC LDL CHOL (test code = 2237) 134 MG/DL <100 H NOTE: CALCULATED LDL IS BASED ON GREGORIA-LEARY METHOD WHICHINCLUDES ADJUSTABLE TRIGLYCERIDE:VLDL CHOLESTEROL RATIO.THIS FACTOR VARIES BY MEASURED TRIGLYCERIDE AND NON-HDLCHOLESTEROL CONCENTRATIONS WITH INCREASED CALCULATED LDL SEENIN HIGHER TRIGLYCERIDE OR LOWER NON-HDL SPECIMENS. FOR MOREINFORMATION, SEE CLIENT ANNOUNCEMENT AT [email or web address] [email or web address] RATIO LDL/HDL (test code = 2238) 2.98 RATIO <3.22 UNLESS OTHERW ISE INDICATED, ALL TESTING PERFORMED [facility] [address] [place] [address] WORKSHOP MANAGER: ONELIA MARC M.D. CLIA NUMBER [id number] [facility] [place]. [id number] CBC W/AUTO DIFF WITH [id number] 02:59:19* Test Item Value Reference Range Interpretation Comme nts WBC (test code = 1001) 6.6 K/UL 3.5-11.0 RBC (test code = 1002) 5.24 M/UL 3.80-5.40 HEMOGLOBIN (test code = 1003) 15.1 G/DL 11.5-15.5 HEMATOCRIT (test code = 1004) 44.1 % 34.0-45.0 MCV (test code = 1005) 84.2 fL 80.0-99.0 MCH (test code = 1006) 28.8 PG 25.0-33.0 MCHC (test code = 1007) 34.2 G/DL 31.0-36.0 RDW (test code = 1038) 13.5 % 11.5-15.0 NEUTROPHILS (test code = 1008) 53.4 % LYMPHOCYTES (test code = 1010) 33.0 % MONOCYTES (test code = 1011) 9.7 % EOSINOPHILS (test code = 1012) 2.0 % BASOPHILS (test code = 1013) 1.4 % IMMATURE GRANULOCYTES (test code = 1036) 0.5 % NUCLEATED RBCS (test code = 1065) 0.0 /100 WBC'S See_Comment [Automated [place] ge] The system which generated this result transmitted reference range: 0.0. The reference range was not used to interpret this result as normal/abnormal. PLATELET COUNT (test code = 1015) 315 K/UL 130-400 ABSOLUTE NEUTROPHILS (test code = 1066) 3.53 K/UL 1.50-7.50 ABSOLUTE LYMPHOCYTES (test code = 1067) 2.18 K/UL 1.00-4.00 ABSOLUTE MONOCYTES (test code = 1068) 0.64 K/UL 0.20-1.00 ABSOLUTE EOSINOPHILS (test code = 1040) 0.13 K/UL 0.00-0.50 ABSOLUTE BASOPHILS (test code = 1069) 0.09 K/UL 0.00-0.20 ABS IMMATURE GRANULOCYTES (test code = 1020) 0.03 K/UL 0.00-0.10 ABS NUCLEATED RBCS (test code = 39754) 0.00 K/UL 0.00-0.11
[2023-07-29] MEDS ORDERED: LEVALBUTEROL 1.25 MG/3 ML NEB ONE (10:04)
[2023-07-29] MEDS ORDERED: IPRATROPIUM BROM 0.5MG/2.5ML ONE (10:04)
[2023-07-29] MEDS ORDERED: METHYLPREDNISOLONE 125 MG INJ ONE (10:04)
[2023-07-29] MEDS ORDERED: DIPHENHYDRAMINE 50 MG/ML VIAL ONE (10:05)
[2023-07-29] MEDS ORDERED: NA CHLORIDE 0.9% 500 ML ONE (10:05)
[2023-07-29] MEDS ORDERED: FAMOTIDINE 20 MG/2 ML VIAL IV ONE (10:05)
[2023-07-29] MEDS ORDERED: predniSONE 20 MG TAB ONE (10:05)
[2023-07-29 10:20] LABS: Absolute Lymphocytes (CBC) 1.3 K/uL (0.7-4.9); Hematocrit 39.1 % (36.0-45.0); Lymphocytes % 30.3 % (15.3-44.8); MCV 85.3 fL (80-100); MPV 6.4 fL (7.6-11.3); Platelets 286 thou/uL (152-406); RBC Red Blood Cell Count 4.59 M/uL (3.86-4.86)
[2023-07-29 10:52] LABS: Bilirubin Total 0.6 mg/dL (0.2-1.0); Potassium 2.5 mEq/L (3.5-5.1); Protein, Total 7.2 g/dL (6.4-8.2)
--- NOTE | 2023-07-29 10:54 | RAD REPORT ---
EXAM DESCRIPTION: RAD - Chest Pa And Lat (2 Views) - 07/29/2023 10:47 am CLINICAL HISTORY: COPD;Cough COMPARISON: Chest Pa And Lat (2 Views) dated 08/06/2022; Chest Single View dated 07/20/2018; Chest Sing le View dated 06/20/2018; Chest Pa And Lat (2 Views) dated 02/16/2017 FINDINGS: Lines: None. Lungs: No evidence of edema or pneumonia. Pleural: No significant pleural effusions or pneumothorax. Cardiac: The heart size is within normal limits. Mediastinum: Within normal limits. Bones: No acute fractures. Other: None IMPRESSION: No acute cardiopulmonary disease.
[2023-07-29] MEDS ORDERED: NA CHLORIDE 0.9% 1,000 ML ONE (11:01)
[2023-07-29 11:03] LABS: Troponin High Sensitivity 8.6 pg/mL (<58.9)
[2023-07-29 11:33] LABS: Albumin 2.9 g/dL (3.4-5.0); Bilirubin Total 0.6 mg/dL (0.2-1.0); Potassium 2.8 mEq/L (3.5-5.1); Protein, Total 6.8 g/dL (6.4-8.2)
[2023-07-29 11:34] LABS: Specific Gravity 1.005 (1.005-1.030); Urine Bacteria <20 /HPF (<20); Urine Bilirubin NEGATIVE (Negative); Urine Blood Negative (Negative); Urine Clarity Clear (Clear); Urine Color Light-Yellow (Yellow); Urine Glucose NEGATIVE (Negative); Urine Protein NEGATIVE (Negative); Urine RBC <5 /HPF (None Seen); Urine Urobilinogen Normal (Normal); Urine pH 6.5 (5.0-7.0)
--- NOTE | 2023-07-29 11:39 | EDPHYS ---
Physician Documentation [facility] Name: Paola Ji Age: 68 yrs Sex: Female : 1955 Arrival Date: 07/29/2023 Time: 09:37 Bed 8 Private MD: ED Physician James Hoskins HPI: 07/29 09:58 This 68 yrs old Black Female presents to ER via Ambulatory with complaints of Cough, farhan Rash. 09:58 The patient or guardian reports cough, that is intermittent. Onset: The farhan symptoms/episode began/occurred 3 day(s) ago. Historical: - Allergies: 09:48 No Known Allergies; ll1 - PMHx: 09:41 Hypertension; Hypercholesterolemia; CHF; ld1 - PSHx: 09:48 R leg stent x 2; ll1 - Immunization history:: Adult Immunizations up to date. - Social history:: Smoking status: Patient/guardian denies using tobacco, Stopped _ months ago 2. ROS: 09:59 Constitutional: Negative for fever, chills, and weight loss, Eyes: Negative for injury, farhan pain, redness, and discharge, ENT: Negative for injury, pain, and discharge, Neck: Negative for injury, pain, and swelling, Cardiovascular: Negative for chest pain, palpitations, and edema, Abdomen/GI: Negative for abdominal pain, nausea, vomiting, diarrhea, and constipation, Back: Negative for injury and pain, : Negative for injury, bleeding, discharge, and swelling, MS/Extremity: Negative for injury and deformity, Neuro: Negative for headache, weakness, numbness, tingling, and seizure, Psych: Negative for depression, anxiety, suicide ideation, homicidal ideation, and hallucinations, Allergy/Immunology: Negative for hives, rash, and allergies, Endocrine: Negative for neck swelling, polydipsia, polyuria, polyphagia, and marked weight changes, 09:59 Respiratory: Positive for cough, with no reported sputum, wheezing, expiratory, 09:59 Skin: Positive for rash, Exam: 09:59 Constitutional: This is a well developed, well nourished patient who is awake, alert, farhan and in no acute distress. Head/Face: Normocephalic, atraumatic. Eyes: Pupils equal round and reactive to light, extra-ocular motions intact. Lids and lashes normal. Conjunctiva and sclera are non-icteric and not injected. Cornea within normal limits. Periorbital areas with no swelling, redness, or edema. ENT: Nares patent. No nasal discharge, no septal abnormalities noted. Tympanic membranes are normal and external auditory canals are clear. Oropharynx with no redness, swelling, or masses, exudates, or evidence of obstruction, uvula midline. Mucous membranes moist. Neck: Trachea midline, no thyromegaly or masses palpated, and no cervical lymphadenopathy. Supple, full range of motion without nuchal rigidity, or vertebral point tenderness. No Meningismus. Chest/axilla: Normal chest wall appearance and motion. Nontender with no deformity. No lesions are appreciated. Cardiovascular: Regular rate and rhythm with a normal S1 and S2. No gallops, murmurs, or rubs. Normal PMI, no JVD. No pulse deficits. Abdomen/GI: Soft, non-tender, with normal bowel sounds. No distension or tympany. No guarding or rebound. No evidence of tenderness throughout. Back: No spinal tenderness. No costovertebral tenderness. Full range of motion. Female : Normal external genitalia. MS/ Extremity: Pulses equal, no cyanosis. Neurovascular intact. Full, normal range of motion. Neuro: Awake and alert, GCS 15, oriented to person, place, time, and situation. Cranial nerves II-XII grossly intact. Motor strength 5/5 in all extremities. Sensory grossly intact. Cerebellar exam normal. Normal gait. Psych: Awake, alert, with orientation to person, place and time. Behavior, mood, and affect are within normal limits. 09:59 Respiratory: the patient does not display signs of respiratory distress, Respirations: normal, Breath sounds: bronchial sounds, that are mild, are scattered, rhonchi, that are mild, are scattered, wheezing: expiratory is scattered, Respiratory rate: 18 09:59 Skin: rash can be described as nonspecific, circular, scaly, 10:39 ECG was reviewed by the Attending Physician. [facility] Vital Signs: 09:49 Resp 18; Temp 97.9; Weight 73.03 kg; Height 5 ft. 6 in. ; Pain 10/10; ll1 09:51 BP 150 / 95; kc6 11:13 Pulse 68; Resp 20 S; Pulse Ox 97% on R/A; kc6 12:57 BP 136 / 90; Pulse 73; Resp 14 S; Pulse Ox 95% on R/A; kc6 14:52 BP 134 / 76; Pulse 77; Resp 15 S; Pulse Ox 98% on R/A; kc6 15:51 BP 125 / 67; Pulse 80; Resp 16 S; Pulse Ox 93% on R/A; kc6 09:49 Body Mass Index 25.99 (73.03 kg, 167.64 cm) ll1 09:49 Pain Scale: Adult ll1 MDM: 09:41 Patient medically screened. [facility] 10:02 Differential diagnosis: impetigo. Differential Diagnosis: Obstructed Airway Bronchitis farhan Upper Respiratory Infection Asthma Exacerbation. Data reviewed: vital signs, nurses notes, lab test result(s), radiologic studies, plain films. Consideration of Admission/Observation Escalation of care including admission/observation considered. I considered the following discharge prescriptions or medication management in the emergency department Medications were administered in the Emergency Department. See MAR. Independent interpretation of the following test(s) in the Emergency Department X-Ray: My interpretation is cxr. Test considered but Not performed: EKG: no ekg. Historians other than the Patient: patient well informed. Care significantly affected by the following chronic conditions: Hypertension, Congestive Heart Failure, high chlesterol. 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 07/29 09:58 Order name: CBC with Diff; Complete Time: 10:38 [facility] 07/29 09:58 Order name: Comprehensive Metabolic Panel; Complete Time: 11:20 [facility] 07/29 10:12 Order name: BNP; Complete Time: 11:20 [facility] 07/29 10:12 Order name: Troponin HS; Complete Time: 11:20 [facility] 07/29 10:59 Order name: Urinalysis w/ reflexes; Complete Time: 11:36 [facility] 07/29 10:59 Order name: Comprehensive Metabolic Panel; Complete Time: 11:36 [facility] 07/29 10:59 Order name: Urine Osmolality; Complete Time: 12:03 [facility] 07/29 10:59 Order name: Urine Sodium Random; Complete Time: 12:03 [facility] 07/29 10:59 Order name: Osmolality, Serum; Complete Time: 12:03 [facility] 07/29 11:35 Order name: Phosphorus; Complete Time: 12:03 [facility] 07/29 12:38 Order name: Magnesium ds4 07/29 09:58 Order name: Chest Pa And Lat (2 Views) XRAY; Complete Time: 10:56 [facility] 07/29 10:12 Order name: EKG; Complete Time: 10:12 [facility] 07/29 12:41 Order name: CONS Physician Consult EDMT 07/29 10:12 Order name: EKG - Nurse/Tech; Complete Time: 10:14 [facility] 07/29 10:59 Order name: Seizure Precautions; Complete Time: 11:41 [facility] EC:39 Rate is 66 beats/min. Rhythm is regular. QRS [place] is Normal. NH interval is prolonged farhan at 214 msec. QRS interval is normal. QT interval is normal. No Q waves. T waves are Normal. No ST changes noted. Clinical impression: 1st degree heart block and No evidence of ischemia. Interpreted by me. Reviewed by me. Administered Medications: 11:35 Discontinued: ns 0.9% 1000 ml IV at 100 ml/hr continuous farhan 10:16 Drug: NS 0.9% IV 500 ml IV at bolus once Route: IV; Rate: bolus; Site: left antecubital;kc6 11:12 Follow up: Response: No adverse reaction; IV Status: Completed infusion; IV Intake: kc6 500ml 10:16 Drug: MethylPrednisoLONE IVP 125 mg IVP once Route: IVP; Site: left antecubital; kc6 11:12 Follow up: Response: No adverse reaction kc6 10:17 Drug: predniSONE PO 40 mg PO once Route: PO; kc6 11:13 Follow up: Response: No adverse reaction kc6 10:17 Drug: Levalbuterol Inhalation 2.5 mg Inhalation once Route: Inhalation; kc6 11:13 Follow up: Response: No adverse reaction kc6 10:17 Drug: Ipratropium Inhalation Aerosol 0.5 mg Inhalation once Route: Inhalation; kc6 11:13 Follow up: Response: No adverse reaction kc6 10:17 Drug: Famotidine IVP 20 mg IVP once; dilute with 10 mL 0.9% NaCl; give over 2 minutes kc6 Route: IVP; Site: left antecubital; 11:13 Follow up: Response: No adverse reaction kc6 10:17 Drug: diphenhydrAMINE IVP 25 mg IVP once Route: IVP; Site: left antecubital; kc6 11:13 Follow up: Response: No adverse reaction kc6 11:07 Drug: NS 0.9% IV 1000 ml IV at 100 ml/hr continuous Route: IV; Rate: 100 ml/hr; Site: ld1 left antecubital; 11:41 Follow up: Response: No adverse reaction; IV Status: Order to discontinue infusion kc6 11:55 Drug: Potassium PO Effervescent Tablet 50 mEq PO once; dissolve in 4 ounces of water or kc6 juice Route: PO; 12:57 Follow up: Response: No adverse reaction kc6 11:55 Drug: Potassium Chloride IV 20 mEq IV at per protocol once; administer over 1-2 hours kc6 Route: IV; Rate: per protocol; Site: left antecubital; 15:51 Follow up: Response: No adverse reaction; IV Status: Completed infusion; IV Intake: kc6 100ml 11:55 Drug: NS 0.9% with KCl IV 20 mEq/L 1000 ml IV at 100 ml/hr continuous Route: IV; Rate: kc6 100 ml/hr; Site: left antecubital; 15:51 Follow up: Response: No adverse reaction; IV Status: Infusion continued upon admission; kc6 IV Intake: 1000ml Disposition Summary: 07/29/23 11:39 Hospitalization Ordered Notes: Hospitalization Status: Inpatient Admission farhan Provider: Sushant Bernardo cha Condition: Fair farhan Problem: new farhan Symptoms: have improved farhan Bed/Room Type: Standard farhan Location: Intensive Care Unit(07/29/23 13:16) farhan Room Assignment: 4-(07/29/23 15:34) [facility] Diagnosis - Hypo-osmolality and hyponatremia farhan - Hypokalemia farhan - Cough farhan - Weakness farhan - Dermatitis, unspecified farhan Discharge Instructions: - Discharge Summary Sheet farhan - Rash, Adult farhan - Rash, Adult, Eelm-fj-Mlkt farhan - Cough, Adult, Pmeo-za-Zniu farhan - COPD and Physical Activity farhan - Living With COPD farhan Forms: - Medication Reconciliation Form farhan - SBAR form farhan - Leadership Thank You Letter farhan Prescriptions: - albuterol sulfate 90 mcg/actuation Inhalation HFA Aerosol Inhaler - inhale 2 puff INHALATION route every 4-6 hours; 1 unit; Refills: 0, Product farhan Selection Permitted - Benadryl 25 mg Oral capsule - take 1 capsule ORAL route every 6 hours As needed; 40 tablet; Refills: 0, [facility] Product Selection Permitted - Pepcid 20 mg Oral tablet - take 1 tablet ORAL route every 12 hours for 21 days; 42 tablet; Refills: 0, [facility] Product Selection Permitted - Nystatin-Triamcinolone 100,000-0.1 unit/g-% Topical cream - apply 1 application TOPICAL route 2 times per day; 60 gram tube; Refills: 0, [facility] Product Selection Permitted - Prednisone 20 mg Oral Tablet - take 2 tablets ORAL route once daily for 5 days; 10 tablet; Refills: 0, Product [facility] Selection Permitted Signatures: Dispatcher [employer] EDJames Ly MD MD cha Attema, Lee, TITLE COORDINATOR-C TITLE COORDINATOR-Cla1 Osvaldo Bautista RN RN ja1 Jaguar Fernando RN RN ll1 Heike Shanks RN RN sallie1 Abeba Abbott RN RN kc6 Corrections: (The following items were deleted from the chart) 13:16 11:39 Telemetry/MedSurg (Inpatient) [facility] 13:16 11:39 [facility] 15:34 13:16 [place] [id number]
--- NOTE | 2023-07-29 11:39 | ER ---
Nurse's Notes [facility] Name: Paola Ji Age: 68 yrs Sex: Female : 1955 Arrival Date: 07/29/2023 Time: 09:37 Bed 8 Private MD: Diagnosis: Hypo-osmolality and hyponatremia;Hypokalemia;Cough;Weakness;Dermatitis, unspecified Presentation: 07/29 09:49 Chief complaint: Patient states: Cough for 2 months since she quit smoking, no fevers. ll1 Rash to body since last year after getting stents in leg. Coronavirus screen: Client denies travel out of the [place] in the last 14 days. cough unrelated to allergies, difficulty breathing, shortness of breath, Client presents with at least one sign or symptom that may indicate coronavirus-19. Standard/surgical mask placed on the client. Ebola Screen: Patient denies travel to an Ebola-affected area in the 21 days before illness onset. Initial Sepsis Screen: Does the patient meet any 2 criteria? No. Patient's initial sepsis screen is negative. Does the patient have a suspected source of infection? Yes: Productive cough/pneumonia. Risk Assessment: Do you want to hurt yourself or someone else? Patient reports no desire to harm self or others. Onset of symptoms was May 28, 2023. 09:49 Method Of Arrival: Ambulatory ll1 09:49 Acuity: JAIMEE 3 ll1 Triage Assessment: 09:50 General: Appears in no apparent distress. Behavior is calm, cooperative, appropriate ll1 for age. Pain: Complains of pain in abdomen/head Pain currently is 10 out of 10 on a pain scale. Quality of pain is described as aching, Aggravated by coughing. Neuro: Reports headache with coughing. Respiratory: Reports shortness of breath on exertion cough that is. GI: Reports abdominal pain with cough. Historical: - Allergies: 09:48 No Known Allergies; ll1 - PMHx: 09:41 Hypertension; Hypercholesterolemia; CHF; ld1 - PSHx: 09:48 R leg stent x 2; ll1 - Immunization history:: Adult Immunizations up to date. - Social history:: Smoking status: Patient/guardian denies using tobacco, Stopped _ months ago 2. Screenin:17 [place] [facility] Fall Risk Assessment (Adult) History of falling in the last 3 months, kc6 including since admission No falls in past 3 months (0 pts) Confusion or Disorientation No (0 pts) Intoxicated or Sedated No (0 pts) Impaired Gait No (0 pts) Mobility Assist Device Used No (0 pt) Altered Elimination No (0 pt) Score/Fall Risk Level 0 - 2 = Low Risk. Abuse screen: Denies threats or abuse. Denies injuries from another. Nutritional screening: No deficits noted. Tuberculosis screening: No symptoms or risk factors identified. Assessment: 10:17 General: Appears in no apparent distress. comfortable, well groomed, well developed, kc6 Behavior is calm, cooperative, appropriate for age, Denies fever. Pain: Denies pain. Neuro: Level of Consciousness is awake, alert, obeys commands, Oriented to person, place, time, situation, Appropriate for age. Cardiovascular: Denies chest pain, Capillary refill < 3 seconds. Respiratory: Reports cough that is persistent Airway is patent Trachea midline Respiratory effort is even, unlabored, Respiratory pattern is regular, symmetrical, Denies shortness of breath. GI: No signs and/or symptoms were reported involving the gastrointestinal system. : No signs and/or symptoms were reported regarding the genitourinary system. EENT: No signs and/or symptoms were reported regarding the EENT system. Derm: Skin is intact, is healthy with good turgor, Skin is pink, warm \T\ dry. Reports generalized rash on body. Musculoskeletal: No signs and/or symptoms reported regarding the musculoskeletal system. Circulation, motion, and sensation intact. Capillary refill < 3 seconds, Range of motion: intact in all extremities. 11:13 Reassessment: Patient appears in no apparent distress at this time. No changes from kc6 previously documented assessment. Patient and/or family updated on plan of care and expected duration. Pain level reassessed. Patient is alert, oriented x 3, equal unlabored respirations, skin warm/dry/pink. 12:57 Reassessment: Patient appears in no apparent distress at this time. No changes from kc6 previously documented assessment. Patient and/or family updated on plan of care and expected duration. Pain level reassessed. Patient is alert, oriented x 3, equal unlabored respirations, skin warm/dry/pink. 14:52 Reassessment: Patient appears in no apparent distress at this time. No changes from kc6 previously documented assessment. Patient and/or family updated on plan of care and expected duration. Pain level reassessed. Patient is alert, oriented x 3, equal unlabored respirations, skin warm/dry/pink. 15:51 Reassessment: Patient appears in no apparent distress at this time. No changes from kc6 previously documented assessment. Patient and/or family updated on plan of care and expected duration. Pain level reassessed. Patient is alert, oriented x 3, equal unlabored respirations, skin warm/dry/pink. nurse to nurse report given to JB Randhawa. Vital Signs: 09:49 Resp 18; Temp 97.9; Weight 73.03 kg; Height 5 ft. 6 in. ; Pain 10/10; ll1 09:51 BP 150 / 95; kc6 11:13 Pulse 68; Resp 20 S; Pulse Ox 97% on R/A; kc6 12:57 BP 136 / 90; Pulse 73; Resp 14 S; Pulse Ox 95% on R/A; kc6 14:52 BP 134 / 76; Pulse 77; Resp 15 S; Pulse Ox 98% on R/A; kc6 15:51 BP 125 / 67; Pulse 80; Resp 16 S; Pulse Ox 93% on R/A; kc6 09:49 Body Mass Index 25.99 (73.03 kg, 167.64 cm) ll1 09:49 Pain Scale: Adult ll1 ED Course: 09:39 Patient arrived in ED. rg4 09:41 James Hoskins MD is Attending Physician. farhan 09:48 Arm band placed on Patient placed in an exam room, on a stretcher. ll1 09:50 Triage completed. ll1 10:12 Inserted saline lock: 20 gauge in left antecubital area, using aseptic technique. Blood ld1 collected. 10:16 Abeba Abbott RN is Primary Nurse. kc6 10:17 Patient has correct armband on for positive identification. Bed in low position. Call kc6 light in reach. Side rails up X2. Client placed on continuous cardiac and pulse oximetry monitoring. NIBP monitoring applied. 10:17 Patient maintains SpO2 saturation greater than 95% on room air. kc6 10:49 Chest Pa And Lat (2 Views) XRAY In Process Unspecified. EDMS 11:12 Urinalysis w/ reflexes Sent. kc6 11:12 Osmolality, Serum Sent. kc6 11:12 Urine Sodium Random Sent. kc6 11:12 Urine Osmolality Sent. kc6 11:38 Sushant Bernardo MD is Hospitalizing Provider. farhan 11:41 Seizure precautions initiated. kc6 16:13 No provider procedures requiring assistance completed. Patient admitted, IV remains in kc6 place. Administered Medications: 11:35 Discontinued: ns 0.9% 1000 ml IV at 100 ml/hr continuous farhan 10:16 Drug: NS 0.9% IV 500 ml IV at bolus once Route: IV; Rate: bolus; Site: left antecubital;kc6 11:12 Follow up: Response: No adverse reaction; IV Status: Completed infusion; IV Intake: kc6 500ml 10:16 Drug: MethylPrednisoLONE IVP 125 mg IVP once Route: IVP; Site: left antecubital; kc6 11:12 Follow up: Response: No adverse reaction kc6 10:17 Drug: predniSONE PO 40 mg PO once Route: PO; kc6 11:13 Follow up: Response: No adverse reaction kc6 10:17 Drug: Levalbuterol Inhalation 2.5 mg Inhalation once Route: Inhalation; kc6 11:13 Follow up: Response: No adverse reaction kc6 10:17 Drug: Ipratropium Inhalation Aerosol 0.5 mg Inhalation once Route: Inhalation; kc6 11:13 Follow up: Response: No adverse reaction kc6 10:17 Drug: Famotidine IVP 20 mg IVP once; dilute with 10 mL 0.9% NaCl; give over 2 minutes kc6 Route: IVP; Site: left antecubital; 11:13 Follow up: Response: No adverse reaction kc6 10:17 Drug: diphenhydrAMINE IVP 25 mg IVP once Route: IVP; Site: left antecubital; kc6 11:13 Follow up: Response: No adverse reaction kc6 11:07 Drug: NS 0.9% IV 1000 ml IV at 100 ml/hr continuous Route: IV; Rate: 100 ml/hr; Site: ld1 left antecubital; 11:41 Follow up: Response: No adverse reaction; IV Status: Order to discontinue infusion kc6 11:55 Drug: Potassium PO Effervescent Tablet 50 mEq PO once; dissolve in 4 ounces of water or kc6 juice Route: PO; 12:57 Follow up: Response: No adverse reaction kc6 11:55 Drug: Potassium Chloride IV 20 mEq IV at per protocol once; administer over 1-2 hours kc6 Route: IV; Rate: per protocol; Site: left antecubital; 15:51 Follow up: Response: No adverse reaction; IV Status: Completed infusion; IV Intake: kc6 100ml 11:55 Drug: NS 0.9% with KCl IV 20 mEq/L 1000 ml IV at 100 ml/hr continuous Route: IV; Rate: kc6 100 ml/hr; Site: left antecubital; 15:51 Follow up: Response: No adverse reaction; IV Status: Infusion continued upon admission; kc6 IV Intake: 1000ml Medication: 16:14 VIS not applicable for this client. kc6 Intake: 11:12 IV: 500ml; Total: 500ml. kc6 15:51 IV: 100ml; Total: 600ml. kc6 15:51 IV: 1000ml; Total: 1600ml. kc6 Outcome: 11:39 Decision to Hospitalize by Provider. farhan 16:14 Admitted to ICU accompanied by nurse, via wheelchair, room 4, with chart, Report called kc6 to JB Randhawa 16:14 Condition: stable 16:14 Instructed on the need for admit, 16:14 Patient left the ED. kc6 Signatures: Dispatcher [employer] EDMS James Hoskins MD MD cha Garcia, Rubi rg4 Jaguar Fernando, RN RN ll1 Heike Shanks RN RN ld1 Abeba Abbott RN RN kc6
[2023-07-29] MEDS ORDERED: NS KCL 20MEQ 1,000 ML IV ONE (11:48)
[2023-07-29] MEDS ORDERED: KCL 20 MEQ/100 mL IVPB 100 ML IV ONE (11:48)
[2023-07-29] MEDS ORDERED: POTASSIUM 25 MEQ EFFERV TAB ONE (11:48)
[2023-07-29] MEDS ORDERED: ONDANSETRON 4 MG/2 ML VIAL IV PRN (12:59)
[2023-07-29] MEDS ORDERED: NS KCL 20MEQ 20 MEQ/1,000 ML BAG IV SCH (13:00)
--- NOTE | 2023-07-29 15:00 | P.HP ---
Certification for Inpatient Patient admitted to: Inpatient With expected LOS: >2 Midnights Patient will require the following post-hospital care: None Practitioner: I am a practitioner with admitting privileges, knowledge of patient current condition, hospital course, and medical plan of care. Services: Services provided to patient in accordance with Admission requirements found in Title 42 Section 412.3 of the Code of Federal Regulations <Neal Perales - Last Filed: 07/29/23 14:55> Patient History Date of Service: 07/29/23 Reason for admission: Hyponatremia, hypokalemia History of Present Illness: 68-year-old female with history of hypertension, hyperthyroidism, hyperlipidemia, CHFunknown EF presents to the emergency department chief complaint of cough, rash. She reports she has had a persistent cough since she quit smoking a couple of months ago and the rash that started around 1 week ago which has been itching started on her arms and spread throughout her thorax, legs. She was evaluated in the emergency department and had some basic labs performed, her labs were significant for severe hyponatremia with a sodium of 115 potassium 2.5 chloride 77 bicarb 31 creatinine 0.7 CBC is unremarkable UA also unremarkable. Patient was given IV fluids, IV potassium in the ED, ED provider wishes to admit for further evaluation and management of severe hyponatremia, hypokalemia. Of note patient does take chlorthalidone 25 mg daily at home which she started in late April. - Past Medical/Surgical History Diabetic: No -: HTN -: hyperlipidemia -: Hyperthyroidism -: CHFunknown EF -: appendectomy Psychosocial/ Personal History: Lives at home with family - Family History Family History: Reviewed- Non-Contributory - Social History Smoking Status: Former smoker Alcohol use: Yes CD- Drugs: No Caffeine use: Yes Place of Residence: Home <Neal Perales - Last Filed: 07/29/23 14:55> Date of Service: 07/29/23 <Sushant Bernardo - Last Filed: 07/29/23 17:26> Allergies kiwi Adverse Reaction (Verified 07/29/23 16:28) Nausea/Vomiting Home Medications: Amlodipine Besylate 5 mg PO DAILY #30 tablet 05/23/14 carvediloL [Coreg*] 6.25 mg PO BID #60 tab 05/23/14 Chlorthalidone 25 mg PO DAILY 07/29/23 Lovastatin 20 mg PO DAILY 07/29/23 Rivaroxaban [Xarelto] 20 mg PO DAILY 07/29/23 methIMAzole [Tapazole] 5 mg PO DAILY 07/29/23 Review of Systems 10-point ROS is otherwise unremarkable Respiratory: Cough Integumentary: Rash, As per HPI <Neal Perales - Last Filed: 07/29/23 14:55> Physical Examination - Physical Exam General: Alert, In no apparent distress, Oriented x3 HEENT: Atraumatic, PERRLA Neck: Supple, 2+ carotid pulse no bruit Respiratory: Clear to auscultation bilaterally, Normal air movement Cardiovascular: Regular rate/rhythm, Normal S1 S2 Gastrointestinal: Normal bowel sounds, No tenderness Musculoskeletal: No tenderness Integumentary: Rash(es) (Dry, patchy rash noted to upper and lower extremities) Neurological: Normal speech, Normal strength at 5/5 x4 extr, Normal tone - Studies Laboratory Data (last 24 hrs) 07/29/23 07/29/23 07/29/23 11:04 11:04 11:04 WBC Hgb Hct Plt Count Sodium 116 L* Potassium 2.8 L BUN 4 L Creatinine 0.62 Glucose 89 Phosphorus 2.5 Magnesium 1.6 Total Bilirubin 0.6 AST 22 ALT 21 Alkaline Phosphatase 95 07/29/23 07/29/23 10:09 10:09 WBC 4.40 Hgb 13.4 Hct 39.1 Plt Count 286 Sodium 115 L* Potassium 2.5 L* BUN 4 L Creatinine 0.70 Glucose 84 Phosphorus Magnesium Total Bilirubin 0.6 AST 23 ALT 22 Alkaline Phosphatase 104 <Neal Perales - Last Filed: 07/29/23 14:55> - Studies Laboratory Data (last 24 hrs) 07/29/23 07/29/23 07/29/23 11:04 11:04 11:04 WBC Hgb Hct Plt Count Sodium 116 L* Potassium 2.8 L BUN 4 L Creatinine 0.62 Glucose 89 Phosphorus 2.5 Magnesium 1.6 Total Bilirubin 0.6 AST 22 ALT 21 Alkaline Phosphatase 95 07/29/23 07/29/23 10:09 10:09 WBC 4.40 Hgb 13.4 Hct 39.1 Plt Count 286 Sodium 115 L* Potassium 2.5 L* BUN 4 L Creatinine 0.70 Glucose 84 Phosphorus Magnesium Total Bilirubin 0.6 AST 23 ALT 22 Alkaline Phosphatase 104 <Sushant Bernardo - Last Filed: 07/29/23 17:26> Assessment and Plan - Plan Assessment: Severe hyponatremia, hypokalemia History of hyperthyroidism Pruritic rash Chronic CHFunknown EF Hypertension Hyperlipidemia Plan: Severe hyponatremia, hypokalemia Potassium repleted, continue gentle IV fluids Monitor chemistry every 4 hours Hold chlorthalidone Additional urine/serum studies ordered Nephrology consulted History of hyperthyroidism Taking methimazole 5 mg daily at home Assess TSH/T4 with labs Pruritic rash Unclear etiology Pruritic rash, initially started on arms and spread throughout body Given steroids, Benadryl ED Continue to monitor Chronic CHFunknown EF Does not appear grossly overloaded at this time Hold chlorthalidone given profound hyponatremia, hypokalemia Hypertension Hold chlorthalidone Hyperlipidemia Continue home medications DVT PPX: Continue Xarelto Code status: Full Discharge Plan: Home Plan to discharge in: Greater than 2 days - Advance Directives Does patient have a Living Will: No Does patient have a Durable POA for Healthcare: No - Code Status/Comfort Care Code Status Assessed: Yes (Full code) Critical Care: No Time Spent Managing Pts Care (In Minutes): 70 <Neal Perales - Last Filed: 07/29/23 14:55> - Plan Patient seen and examined in ED on admission with GEAR GRINDER Diaz. Pt presented with cough and unsteadiness. found to have severe hyponatremia. States she thinks she was recently started chlorthalidone ~3months ago. has felt some degree of unsteadiness/dizzy since b/l PAD procedure also with rash recently check osm, ur lytes hold clorthalidone for now continue IVF, replete K nephrology consulted BMP q4h at least through today <Sushant Bernardo - Last Filed: 07/29/23 17:26>
[2023-07-29 16:32] VITALS: BMI 27.6
[2023-07-29 16:32] LABS: Potassium 3.4 mEq/L (3.5-5.1)
[2023-07-29 17:35] LABS: Potassium 3.4 mEq/L (3.5-5.1)
[2023-07-29] MEDS ORDERED: RIVAROXABAN 20 MG TABLET PO ONE (18:13)
[2023-07-29] MEDS: RIVAROXABAN 20 MG TABLET PO SCH (18:35)
[2023-07-29] MEDS ORDERED: ACETAMINOPHEN 500 MG TAB ONE (21:27)
[2023-07-29] MEDS ORDERED: DIPHENHYDRAMINE 25 MG TAB/CAP ONE (21:28)
[2023-07-29] MEDS: DIPHENHYDRAMINE 25 MG TAB/CAP PO PRN (21:37)
[2023-07-29] MEDS: ACETAMINOPHEN 500 MG TAB PO PRN (21:37)
[2023-07-29] MEDS ORDERED: INFLUENZA VACCINE (for 6+ mo) 0.5 ML DOSE IMVAC ONE (22:00)
[2023-07-29] MEDS ORDERED: PNEUMOCOCCAL VACCINE 0.5 ML IMVAC ONE (22:00)
[2023-07-30 00:08] LABS: Potassium 3.3 mEq/L (3.5-5.1)
[2023-07-30] MEDS ORDERED: POTASSIUM CL SA 10 MEQ TAB PO ONE ×4 (00:43→06:00)
[2023-07-30 04:21] LABS: Absolute Lymphocytes (CBC) 0.7 K/uL (0.7-4.9); Hematocrit 35.7 % (36.0-45.0); MCV 86.2 fL (80-100); MPV 6.4 fL (7.6-11.3); Platelets 273 thou/uL (152-406); RBC Red Blood Cell Count 4.15 M/uL (3.86-4.86)
[2023-07-30 05:01] LABS: Magnesium 1.8 mg/dL (1.6-2.4); Potassium 3.8 mEq/L (3.5-5.1); Thyroid Stimulating Hormone 1.51 uIU/mL (0.358-3.740)
[2023-07-30 05:17] LABS: Blood Morphology Comment NOT SEEN (NOT SEEN); Platelet Estimate ADEQ
[2023-07-30] MEDS ORDERED: MAGNESIUM SULFATE 1 gm IVPB 1 GM/100 ML BAG IV ONE ×2 (05:51→06:00)
[2023-07-30] MEDS ORDERED: POTASS/SODIUM PHOSPHATE 1 PKT POWD.PACK ONE (05:51)
[2023-07-30] MEDS: POTASS/SODIUM PHOSPHATE 1 PKT POWD.PACK PO SCH ×6 (05:53→16:52)
[2023-07-30] MEDS ORDERED: INFLUENZA VACCINE (for 6+ mo) 0.5 ML DOSE IMVAC ONE (07:41)
[2023-07-30] MEDS ORDERED: ACETAMINOPHEN 500 MG TAB ONE (07:41)
[2023-07-30] MEDS: ACETAMINOPHEN 500 MG TAB PO PRN (07:45)
--- NOTE | 2023-07-30 09:59 | P.PN ---
Date of Service: 07/30/23 Subjective: No acute changes overnight Sodium slowly improving ROS: 10 point ROS as noted above, otherwise negative Physical exam GEN: Alert, oriented, NAD HEENT: Normal conjunctiva, sclera anicteric CV: Regular rate and rhythm, no edema Pulm: Nonlabored respirations on room air ABD: Soft, nontender, nondistended MSK: No joint tenderness Integumentary: patchy rash to arms, back, legs, itchy Neuro: Normal speech, normal affect Assessment: Severe hyponatremia, hypokalemia, hypophosphatemia History of hyperthyroidism Pruritic rash Chronic CHFunknown EF Hypertension Hyperlipidemia Plan: Severe hyponatremia, hypokalemia, hypophosphatemia Potassium repleted, continue gentle IV fluids Soidum, potassium improving Phosphorus protocol in place Hold chlorthalidone Nephrology consulted History of hyperthyroidism Taking methimazole 5 mg daily at home TSH WNL, free T4 is on the low side Restart methimazole Pruritic rash Unclear etiology Pruritic rash, initially started on arms and spread throughout body Has been going on for about two months but worsening Given steroids, Benadryl in ED Continue to monitor Chronic CHFunknown EF Does not appear grossly overloaded at this time Hold chlorthalidone given profound hyponatremia, hypokalemia Hypertension Hold chlorthalidone Hyperlipidemia Continue home medications DVT PPX: Continue Xarelto Code status: Full Discharge Plan: Home Plan to discharge in: Greater than 2 days Time Spent Managing Pts Care (In Minutes): 35
[2023-07-30 10:21] LABS: Potassium 3.7 mEq/L (3.5-5.1)
[2023-07-30] MEDS ORDERED: BENZONATATE 100 MG CAP PO ONE (12:51)
[2023-07-30] MEDS: BENZONATATE 100 MG CAP PO PRN ×2 (12:56→21:02)
[2023-07-30 13:18] LABS: Magnesium 2.3 mg/dL (1.6-2.4); Potassium 4.5 mEq/L (3.5-5.1)
[2023-07-30 13:20] LABS: Phosphorus 0.9 mg/dL (2.5-4.9)
--- NOTE | 2023-07-30 13:25 | EKG ---
Test Date: 2023-07-29 Test Time: 10:21:06 Living Skills Advisor: NICKY MEASUREMENT RESULTS: Intervals: Rate: 66 WY: 214 QRSD: 94 QT: 448 QTc: 469 [place]: P: 19 WY: 214 QRS: -26 T: -8 INTERPRETIVE STATEMENTS: Sinus rhythm with 1st degree AV block Otherwise normal ECG Compared to ECG 07/20/2018 10:18:39 First degree AV block now present Myocardial infarct finding no longer present Electronically Signed On 07-30-23 13:22:29 EDUCATIONAL MANAGER by Nicola Bone
[2023-07-30 14:11] LABS: Specific Gravity 1.017 (1.005-1.030); Urine Bacteria None Seen /HPF (<20); Urine Bilirubin NEGATIVE (Negative); Urine Blood Negative (Negative); Urine Clarity Turbid (Clear); Urine Color Light-Yellow (Yellow); Urine Glucose 1+ (Negative); Urine Protein NEGATIVE (Negative); Urine RBC <5 /HPF (None Seen); Urine Urobilinogen 1+ (Normal); Urine pH 7.5 (5.0-7.0)
--- NOTE | 2023-07-30 15:12 | CON ---
Date of Consultation: 07/30/2023 Reason For Consultation: Hyponatremia. History Of Present Illness: This is a pleasant 68-year-old female with significant past medical history of hyperthyroidism, hypertension, hyperlipidemia, CHF, , patient was in her regular state of health. The patient started having cough dry with rash on lower back and extremity. The patient had nausea without any vomiting. No fever or chills. The patient has been eating very well. Her weakness and fatigue got worse. For that reason, reported to the hospital. Upon arrival to the hospital, patient found to have hyponatremia, sodium down to 115 with hypokalemia, hypophosphatemia and hypomagnesemia. For that reason, patient admitted to the hospital. Patient was started on IV hydration with normal saline. Sodium over the last 24 hours has risen appropriately with 9 points up to 124. Potassium has been replaced and magnesium as well. Patient feeling better. Patient denied any shortness of breath. Patient off IV fluid. The patient denies any previous episode like that. The patient admits that occasionally she is taking ibuprofen. Also patient has been on hydrochlorothiazide b.i.d. for more than 1 year. Past Medical History: Includes: 1. Hypertension. 2. Hyperlipidemia. 3. Hyperthyroidism. 4. CHF. 5. DVT, recently diagnosed and started on Xarelto. Past Surgical History: Include appendectomy. Family History: Positive for hypertension. Social History: Ex-smoker, stopped 2 months ago. Occasional alcohol. Denied drugs abuse. Allergies: NO KNOWN DRUGS ALLERGY. Home Medications: Include amlodipine, carvedilol, hydrochlorothiazide b.i.d., lovastatin, Xarelto, methimazole. Review of Systems: Head and Neck: No red eye. No ear pain. GI: Nausea without any vomiting. Good intake. : No polyuria. No dysuria. No hematuria. [employer] INSTRUCTOR: No vaginal discharge. Respiratory: No shortness of breath. Cardiovascular: No chest pain. Endocrine: No polydipsia. Skin: No rash. Neuro: Fatigue. Musculoskeletal: Generalized weakness. Physical Examination: Vital Signs: Blood pressure 123/72, pulse of 80, afebrile. Chest: Clear on the upper zone, mild wheezing on the left base. Heart: S1, S2. Systolic murmur. Abdomen: Soft, nontender, obese. Could not appreciate any organomegaly. Extremities: No edema. Neurologic: Alert. No focality. Laboratory Data: Upon admission; hemoglobin 13.4, sodium 115, potassium 2.5, bicarb 31, BUN 4, creatinine 0.7, calcium 8.8 that at 10:00 o'clock in the morning yesterday. Today lab data at 9:40; sodium 124, potassium 3.7, bicarb 28, BUN 9, creatinine 0.8, calcium 9.1, phosphorus 1, magnesium 1.8. TSH 1.4. Urinalysis: Specific gravity 1.005, urine osmolality 141, random sodium 25. Current Medications: The patient off IV fluid currently, Xarelto 20, methimazole. The patient received potassium and magnesium w Assessment And Plan: 1. Hyponatremia, mostly secondary to depletional, superimposed with hydrochlorothiazide use. Questionable given the history of the congestive heart failure, to rule out any other reason. I am going to go ahead and send for cortisol. We will send for urine electrolyte to evaluate for any other salt wasting and we will follow up. Currently, patient looked to me on the normal volume, appropriate rise on the sodium. We will hold IV fluid. We will continue electrolyte replacement and we will follow up. 2. Hypokalemia, hypophosphatemia, hypomagnesemia secondary to diuresis. We will replace p.r.n., as above. 3. Hypertension, controlled, optimal with the presence of hyponatremia. I agree with hold the hydrochlorothiazide. 4. Congestive heart failure. Currently, patient normal volume to the dry side. Hold diuresis and we will follow up. Thank you, Dr. Bernardo, for allowing us to participate in the care of your patient. Time spent examining the patient [id number] reviewing that the lab and the radiology placing orders or discussing the case with the patient discussing the case with the steam powerplant supervisor including hospitalist and nursing staff more than 75 minutes MARY KAY Voice ID: [id number] Report ID: [id number] TERESA
[2023-07-30] MEDS ORDERED: RIVAROXABAN 20 MG TABLET PO ONE (16:49)
[2023-07-30] MEDS: RIVAROXABAN 20 MG TABLET PO SCH (16:51)
[2023-07-30] MEDS: DIPHENHYDRAMINE 25 MG TAB/CAP PO PRN (21:02)
[2023-07-30 21:13] LABS: Specific Gravity 1.014 (1.005-1.030); Urine Bilirubin NEGATIVE (Negative); Urine Blood Negative (Negative); Urine Clarity Clear (Clear); Urine Color Light-Yellow (Yellow); Urine Glucose NEGATIVE (Negative); Urine Protein NEGATIVE (Negative); Urine Urobilinogen 2+ (Normal); Urine pH 7.5 (5.0-7.0)
[2023-07-31 04:23] LABS: Absolute Lymphocytes (CBC) 2.2 K/uL (0.7-4.9); Hematocrit 36.8 % (36.0-45.0); MCV 86.8 fL (80-100); MPV 6.4 fL (7.6-11.3); Platelets 290 thou/uL (152-406); RBC Red Blood Cell Count 4.23 M/uL (3.86-4.86)
[2023-07-31 04:39] LABS: Albumin 3.1 g/dL (3.4-5.0); Bilirubin Total 0.5 mg/dL (0.2-1.0); Magnesium 2.1 mg/dL (1.6-2.4); Phosphorus 2.6 mg/dL (2.5-4.9); Potassium 3.7 mEq/L (3.5-5.1); Protein, Total 6.9 g/dL (6.4-8.2)
[2023-07-31] MEDS ORDERED: POTASSIUM CL SA 10 MEQ TAB PO ONE (09:00)
--- NOTE | 2023-07-31 09:57 | P.PN ---
Date of Service: 07/31/23 Subjective: No acute changes overnight Sodium slowly improving Ambulating without difficulty Tolerating diet ROS: 10 point ROS as noted above, otherwise negative Physical exam GEN: Alert, oriented, NAD HEENT: Normal conjunctiva, sclera anicteric CV: Regular rate and rhythm, no edema Pulm: Nonlabored respirations on room air ABD: Soft, nontender, nondistended MSK: No joint tenderness Integumentary: patchy rash to arms, back, legs, itchy Neuro: Normal speech, normal affect Assessment: Severe hyponatremia, hypokalemia, hypophosphatemia History of hyperthyroidism Pruritic rash Chronic CHFunknown EF Hypertension Hyperlipidemia Plan: Severe hyponatremia, hypokalemia, hypophosphatemia Chlorthalidone discontinued Sodium improved with IV fluids/potassium replacement Nephrology following IV fluids have been discontinued Possible discharge tomorrow morning Phosphorus also improved History of hyperthyroidism Taking methimazole 5 mg daily at home TSH WNL, free T4 is on the low side Restart methimazole Pruritic rash Unclear etiology Pruritic rash, initially started on arms and spread throughout body Has been going on for about two months but worsening Given steroids, Benadryl in ED Continue to monitor Chronic CHFunknown EF Does not appear grossly overloaded at this time Hold chlorthalidone given profound hyponatremia, hypokalemia Hypertension Hold chlorthalidone Hyperlipidemia Continue home medications DVT PPX: Continue Xarelto Code status: Full Discharge Plan: Home Plan to discharge in: Greater than 2 days Time Spent Managing Pts Care (In Minutes): 35
[2023-07-31] MEDS: BENZONATATE 100 MG CAP PO PRN ×2 (10:36→20:19)
--- NOTE | 2023-07-31 14:51 | P.PN ---
Subjective Date of Service: 07/31/23 Chief Complaint: Hyponatremia, hypokalemia Subjective: Other (no urinary complaints.) Physical Examination - Vital Signs Temperature: 97.3 F Blood Pressure: 114/68 Pulse: 87 Respirations: 16 Pulse Ox (%): 98 - Physical Exam General: Other (appears as her stated age) HEENT: Atraumatic, Normocephalic Neck: Supple Respiratory: Other (symmetric chest expansion) Cardiovascular: No rubs, No murmurs Gastrointestinal: Soft and benign, No guarding Musculoskeletal: No clubbing Integumentary: No warmth Neurological: Normal tone Urinary: Other (no bladder distention) External genitalia: Deferred Rectal: Deferred Assessment And Plan - Plan 1. Hyponatremia 2/2 high ADH state + hydrochlorothiazide + low solute intake. Avoid thiazide. Encourage po solid food intake tid, at least half a plate per meal. Add Ure-Na if po solid food intake is poor. BNP is normal. May also give NS gtt or NaCl tabs if no further rise in serum Na. 2. Hypokalemia, hypophosphatemia, hypomagnesemia secondary to diuresis. Lytes repletion prn. 3. Hypertension. Continue current medication regimen. Avoid thiazide.
[2023-07-31] MEDS: POTASSIUM CL SA 10 MEQ TAB PO ONE ×2 (15:42→15:54)
[2023-07-31] MEDS: NA CHLORIDE 0.9% 1,000 ML IV SCH (15:42)
[2023-07-31] MEDS: RIVAROXABAN 20 MG TABLET PO SCH (16:08)
--- NOTE | 2023-07-31 18:11 | RAD REPORT ---
EXAM DESCRIPTION: US - Lower Extremity [facility] - 07/31/2023 3:05 pm CLINICAL HISTORY: Leg pain COMPARISON: None FINDINGS: The right common femoral, demonstrates a triphasic waveform The superficial femoral, right posterior tibial and dorsalis pedis arteries demonstrate mostly monoph asic waveforms Right popliteal stent patent Grayscale, color and spectral analysis performed on all vessels IMPRESSION: Plaque appears to result in a moderate to high-grade stenosis right superficial femoral artery
[2023-07-31] MEDS: DIPHENHYDRAMINE 25 MG TAB/CAP PO PRN (20:20)
[2023-08-01 00:57] VITALS: O2SAT 96
[2023-08-01 03:18] LABS: Absolute Lymphocytes (CBC) 1.6 K/uL (0.7-4.9); Hematocrit 32.7 % (36.0-45.0); Lymphocytes % 35.2 % (15.3-44.8); MCV 86.5 fL (80-100); MPV 6.3 fL (7.6-11.3); Platelets 237 thou/uL (152-406); RBC Red Blood Cell Count 3.78 M/uL (3.86-4.86)
[2023-08-01] MEDS: NA CHLORIDE 0.9% 1,000 ML IV SCH ×2 (03:58→05:20)
[2023-08-01 04:05] LABS: Albumin 2.5 g/dL (3.4-5.0); Bilirubin Total 0.5 mg/dL (0.2-1.0); Magnesium 1.9; Protein, Total 5.8 g/dL (6.4-8.2)
[2023-08-01] MEDS ORDERED: carvediloL 6.25 MG TAB PO SCH (09:00)
[2023-08-01] MEDS ORDERED: ATORVASTATIN 10 MG TAB PO SCH (09:00)
[2023-08-01] MEDS ORDERED: AMLODIPINE 5 MG TAB PO SCH (09:00)
[2023-08-01 09:29] VITALS: BP 114/68; TEMP 97.3
--- NOTE | 2023-08-01 10:39 | PN ---
Date of Progress Note: 08/01/2023 Subjective: The patient was admitted to the hospital with hyponatremia, hypophosphatemia, hypokalemia. The patient was on hydrochlorothiazide after stopping has been corrected. The patient is feeling well. has been discontinued, blood pressure being controlled. Physical Examination: Vital Signs: Blood pressure 114/68, pulse of 87, afebrile. Chest: Clear to auscultation. Heart: S1, S2. Systolic murmur. Abdomen: Soft, nontender. Extremities: No edema. Neurologic: No focality. Laboratory Data: Hemoglobin 11.2, sodium 130, potassium 4, bicarb 28, BUN 12, creatinine 0.6, calcium 8.4, phosphorus 3, magnesium 1.9, albumin 2.5, corrected calcium 9.6. Current Medications: The patient on, includes: 1. Amlodipine. 2. Atorvastatin. 3. Carvedilol. Assessment And Plan: 1. Hypokalemia, has proteinuria, nonsignificant elevation in potassium, salt wasting. Recovered, resolved. I am going to continue to monitor the patient okay to go for discharge planning. To follow up in the office in 2-3 weeks. To repeat urine electrolyte for further evaluation. 2. Hyponatremia, depletion all secondary to hydrochlorothiazide, recovered, resolved. 3. Adrenal insufficiency. Hypothyroidism has been ruled out. 4. Hypertension, controlled, optimal, keep holding hydrochlorothiazide. 5. Congestive heart failure. Normal volume currently. We will follow up with primary. The patient is cleared from the renal standpoint for discharge planning. To follow up in the office in 2-3 weeks. Time spent examining the patient [id number] reviewing that the lab and the radiology placing orders or discussing the case with the patient discussing the case with the team lead including hospitalist and nursing staff more than 35 minutes MARY KAY Voice ID: [id number] Report ID: [id number] TERESA
--- NOTE | 2023-08-01 11:10 | P.DS ---
Admission Date: 07/29/23 Discharge Date: 08/01/23 Disposition: ROUTINE DISCHARGE Discharge Condition: GOOD Reason for Admission: Hyponatremia, hypokalemia Consultations: Nephrology- Dr. Abdi Brief History of Present Illness: 68-year-old female with history of hypertension, hyperthyroidism, hyperlipidemia, CHFunknown EF presents to the emergency department chief complaint of cough, rash. She reports she has had a persistent cough since she quit smoking a couple of months ago and the rash that started around 1 week ago which has been itching started on her arms and spread throughout her thorax, le gs. She was evaluated in the emergency department and had some basic labs performed, her labs were significant for severe hyponatremia with a sodium of 115 potassium 2.5 chloride 77 bicarb 31 creatinine 0.7 CBC is unremarkable UA also unremarkable. Patient was given IV fluids, IV potassium in the ED, ED provider wishes to admit for further evaluation and management of severe hyponatremia, hypokalemia. Of note patient does take chlorthalidone 25 mg daily at home which she started in late April. Hospital Course: Assessment: Severe hyponatremia, hypokalemia, hypophosphatemia History of hyperthyroidism Pruritic rash Chronic CHFunknown EF Hypertension Hyperlipidemia Patient was admitted to the hospital for hyponatremia, initial sodium level was 115. It is believed that her chlorthalidone was contributing to her hyopnatremia and hypokalemia and therefore it was discontinued. She was given IV fluids and her electrolytes were replaced. Today her sodium level is 130 and she is tolerating her diet. She is stable to discharge at this time. Chlorthalidone discontinued. Patient also complained of cough and a rash, she was given tessalon pearle for the cough which did help and a prescription will be sent the pharmacy to take as needed. In regards to the rash we will trial and antifungal cream on one area of the body to assess for response, if there is improvement would recommend further applying antifungal cream to other affected areas. Discussed use of hydrating lotion to rest of body. please stop taking chlorthalidone Continue other home medications as prescribed Follow up with primary care doctor in 1-2 weeks Follow up with dermatology as soon as you can get an appointment Vital Signs/Physical Exam: Temp Pulse Resp BP Pulse Ox 97.3 F 87 16 114/68 98 08/01/23 09:26 08/01/23 09:26 08/01/23 09:26 08/01/23 09:26 08/01/23 09:26 General: Alert, In no apparent distress, Oriented x3 HEENT: Atraumatic, PERRLA Neck: Supple, JVD not distended Respiratory: Clear to auscultation bilaterally, Normal air movement Cardiovascular: Regular rate/rhythm, Normal S1 S2 Gastrointestinal: Normal bowel sounds, No tenderness Musculoskeletal: No tenderness Integumentary: Rash(es) Neurological: Normal speech, Normal tone, Normal affect Laboratory Data at Discharge: WBC 4.50 thou/uL (4.3-10.9) 08/01/23 02:33 Hgb 11.2 g/dL (12.0-15.0) L D 08/01/23 02:33 Hct 32.7 % (36.0-45.0) L 08/01/23 02:33 Plt Count 237 thou/uL (152-406) 08/01/23 02:33 Sodium 130 mEq/L (136-145) L 08/01/23 02:33 Potassium 4.0 mEq/L (3.5-5.1) 08/01/23 02:33 BUN 12 mg/dL (7-18) 08/01/23 02:33 Creatinine 0.62 mg/dL (0.55-1.02) 08/01/23 02:33 Glucose 85 mg/dL (74-106) 08/01/23 02:33 Phosphorus 3.0 mg/dL (2.5-4.9) 08/01/23 02:33 Magnesium 1.9 08/01/23 02:33 Total Bilirubin 0.5 mg/dL (0.2-1.0) 08/01/23 02:33 AST 13 U/L (15-37) L 08/01/23 02:33 ALT 18 U/L (13-56) 08/01/23 02:33 Alkaline Phosphatase 68 U/L (45-117) 08/01/23 02:33 Triglycerides 52 mg/dL (<150) 07/30/23 04:11 Cholesterol 147 mg/dL (<200) 07/30/23 04:11 HDL Cholesterol 64 mg/dL (40-60) H 07/30/23 04:11 Cholesterol/HDL Ratio 2.30 07/30/23 04:11 Home Medications: Amlodipine Besylate 5 mg PO DAILY #30 tablet 05/23/14 carvediloL [Coreg*] 6.25 mg PO BID #60 tab 05/23/14 Lovastatin 20 mg PO DAILY 07/29/23 Rivaroxaban [Xarelto] 20 mg PO DAILY 07/29/23 methIMAzole [Tapazole*] 5 mg PO DAILY 07/29/23 Benzonatate [Tessalon Perle*] 100 mg PO TID PRN cap 08/01/23 Benzonatate [Tessalon Perle] 100 mg PO TID PRN #60 cap 08/01/23 Clotrimazole [Clotrimazole AF] 28 gm TP TID #1 tube 08/01/23 New Medications: Clotrimazole [Clotrimazole AF] 28 gm TP TID #1 tube Benzonatate [Tessalon Perle] 100 mg PO TID PRN #60 cap PRN Reason: Cough Physician Discharge Instructions: PROBLEM: Hyponatremia GOAL: Clear understanding of disease process INSTRUCTIONS: Diet: Regular Activity: As tolerated Date Given: Patient was admitted to the hospital for hyponatremia, initial sodium level was 115. It is believed that her chlorthalidone was contributing to her hyopnatremia and hypokalemia and therefore it was discontinued. She was given IV fluids and her electrolytes were replaced. Today her sodium level is 130 and she is tolerating her diet. She is stable to discharge at this time. Chlorthalidone discontinued. Patient also complained of cough and a rash, she was given tessalon pearle for the cough which did help and a prescription will be sent the pharmacy to take as needed. In regards to the rash we will trial and antifungal cream on one area of the body to assess for response, if there is improvement would recommend further applying antifungal cream to other affected areas. Discussed use of hydrating lotion to rest of body. please stop taking chlorthalidone Continue other home medications as prescribed Follow up with primary care doctor in 1-2 weeks Follow up with dermatology as soon as you can get an appointment Diet: Regular Activity: Ad matthew Followup: Bishnu Abdi MD [ACTIVE - CAN ADMIT] - (Follow up in 2-3 weeks ) Jon Robles MD [Primary Care Provider] - 1-2 Weeks Time spent managing pt's care (in minutes): 35
== END 2023-08-01 12:00 | disposition home or self-care (01) | DRG 641 ==
LOC: ER 09:37 → ERHOLD 12:38 → 3RD-ICU 16:13 → 2ND 07-30 18:36
PROVIDERS: ADMIT Hospitalist; ATTEND Hospitalist
DX: E87.1 Hypo-osmolality and hyponatremia (principal); E27.40 Unspecified adrenocortical insufficiency; E87.6 Hypokalemia; L30.9 Dermatitis, unspecified; E78.00 Pure hypercholesterolemia, unspecified; E03.9 Hypothyroidism, unspecified; L29.9 Pruritus, unspecified; I11.0 Hypertensive heart disease with heart failure; I50.9 Heart failure, unspecified; E83.39 Other disorders of phosphorus metabolism; E83.42 Hypomagnesemia; T50.2X5A Adverse effect of carbonic-anhydrase inhibitors, benzothiadiazides and other diuretics, initial encounter; Z23 Encounter for immunization; Z90.49 Acquired absence of other specified parts of digestive tract; Z79.02 Long term (current) use of antithrombotics/antiplatelets; Z79.01 Long term (current) use of anticoagulants; Z79.899 Other long term (current) drug therapy; Z86.718 Personal history of other venous thrombosis and embolism; Z87.891 Personal history of nicotine dependence
CPT/HCPCS: 36415; 71046; 80048; 80053; 80061; 81001; 81003; 82435; 82533; 82570; 83036; 83735; 83880; 83930; 83935; 84100; 84132; 84156; 84300; 84439; 84443; 84484; 85025; 90471; 93005; 93926; 97116; 97161; J1200; J2930; J3475; J3480; J7030; J7040; J7512; J7614; J7644; Q2035

== ENCOUNTER 2023-12-16 18:03 | Inpatient (IN) | payer OTHER ==
--- OUTSIDE RECORDS SUMMARY | 2023-12-16 18:10 | XMS REPORT | Continuity of Care Document ---
Author Name Unknown Address [address] [facility]. [address] [place] [address] [facility] thconnect Address [address] [facility]. [address] [place] [address] Care Team Providers Care Board Writer Name Role Phone Marivel Padron Primary Care Physician NILSA DE JESUS Attending Clinician Unavailable NILSA DE JESUS Attending Clinician Unavailable NOEMI ARGUETA Attending Clinician Unavailable 2, [facility] Attending Clinician Unavailable Noemi Argueta MD Attending Clinician [phone] CHARLEY VEGA Attending Clinician Johnna Charley Banks MD Attending Clinician MANAV DE LA TORRE.HDavid Attending Clinician Unavaila ble Doctor Unassigned, [place] Attending Clinician U reyes Vale RN, Elizabeth Attending Clinician Unavailable Paul Kolb Attending Clinician [phone] Ankit Salomon MD Attending Clinician [phone] ANGELO ALVARADO Attending Clinician Unavailable YENI AVILES Attending Clinician Unavailable RADIOLOGY Attending Clinician Unavailable Manav De La Torre MD K.HDavid Attending Clinician + [phone] Pob, [facility] Main Attending Clinician UnavailNILSA Chase Admitting Clinician Unavailable NOEMI ARGUETA Admitting Clinician Unavailable ANKIT SALOMON Admitting Clinician Unavailable Payers Payer Name Policy Type Policy Number Effective Date Expirati on Date Source [place] [place] PREMIUM HMO [id number] 2023 00:00:00 [employer] MEDICARE OUT OF NETWORK [id number] 2022 00:00:00 [employer] MEDICARE ADVANTAGE [id number] 2019 00:00:00 Problems Condition Name Condition Details Condition Category Status Onset Date Resolution Date Last Treatment Date Treating Clinician Comments Source Cardiac arrhythmia , unspecifie d cardiac arrhythmia type Cardiac arrhythmia , unspecifie d cardiac arrhythmia type Disease Active 10-22 00:00: 00 [facility] Essential hypertensi on Essential hypertensi on Disease Active 10-22 00:00: 00 [facility] Mixed hyperlipid emia Mixed hyperlipid emia Disease Active 10-22 00:00: 00 [facility] Tobacco abuse Tobacco abuse Disease Active 10-22 00:00: 00 [facility] PAD (periphera l artery disease) PAD (periphera l artery disease) Disease Active 10-22 00:00: 00 [facility] 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 extremity with history of revascular ization of same extremity Disease Active 2-21 00:00: 00 [facility] Allergies, Adverse Reactions, Alerts Allergy Name Allergy Type Status Severity Reaction(s) Onset Date Inactive Date Treating Clinician Comments Source NO KNOWN ALLERGIE S Drug Class Active [facility] Social History Social Habit Start Date Stop Date Quantity Comments Source [facility] of tobacco use Cigarette Smoker [facility] Exposure to SARS-CoV-2 (event) Not sure [facility] History of Social function 2023-11-16 00:00:00 2023-11-16 00:00:00 [facility] Tobacco Comment 2023-09-14 00:00:00 2023-09-14 00:00:00 2 Ciggs a week [facility] Tobacco use and exposure 2023-09-14 00:00:00 2023-09-14 00:00:00 Smokeless tobacco non-user [facility] Sex assigned at 1955 00:00:00 1955 00:00:00 [facility] Smoking Status Start Date Stop Date Source Occasional tobacco smoker 2023-09-14 00:00:00 [facility] Medications Ordered Medication Name Filled Medication Name Start Date Stop Date Current Medication? Ordering Clinician Indication Dosage Frequency Signature (SIG) Comments Components Source lovastatin 20 mg tablet 12-10 12:31: 39 Yes 20mg Take 1 tablet by mouth at bedtime. [facility] amlodipine 5 mg tablet 12-08 00:00: 00 Yes 1mg [facility] methimazole 5 mg tablet 12-08 00:00: 00 Yes 1mg [facility] gabapentin 100 mg capsule 12-08 00:00: 00 Yes 2mg [facility] lovastatin 20 mg tablet 30 18:08: 14 Yes 20mg Take 1 tablet by mouth at bedtime. [facility] methimazole 5 mg tablet 11-22 00:00: 00 Yes 1mg [facility] carvedilol 6.25 mg tablet 10-23 00:00: 00 Yes mg [facility] ATORVASTATI N 80 MG 10-22 00:00: 00 Yes [facility] atorvastati n 80 mg tablet 10-22 00:00: 00 10-23 04:59 :00 Yes [id number] 80mg Take 1 tablet by mouth at bedtime. [facility] methIMAzole 5 mg tablet 05 00:00: 00 Yes 5mg Take 1 tablet by mouth in the morning. [facility] Eliquis 5 mg tablet 09-28 00:00: 00 Yes 1mg [facility] gabapentin 100 mg capsule 09-28 00:00: 00 Yes TAKE 2 CAPSULES BY MOUTH 3 TIMES A DAY [facility] APPLY THIN LAYER TO AFFECTED AREAS ON TRUNK & EXTREMITIES TWICE A DAY X 2 WEEKS/MONTH 3-19 00:00: 00 Yes [facility] methimazole 5 mg tablet 3-06 00:00: 00 Yes 1mg [facility] TAKE 1 TABLET BY MOUTH TWICE A DAY 00:00: 00 10-28 00:00 :00 No 100 [facility] lactated ringers IV infusion 1,000 mL 08-24 17:00: 00 08-24 18:02 :05 No 1000mL at 999 mL/hr, 1,000 mL, Intravenou s, ONCE, 1 dose, On Thu08/24/23 at 1100, Routine [facility] apixaban (ELIQUIS) tablet 5 mg 08-24 02:00: 00 Yes 5mg 5 mg, Oral, BID, First dose (after last modificati on) on Thu08/23/23 at 2000, Until Discontinu ed, Routine
Indicatio ns: DVT/PE [facility] gabapentin 100 mg capsule 08-24 00:00: 00 Yes mg [facility] IBUPROFEN 400 MG 08-24 00:00: 00 Yes [facility] OXYCODONE HCL (IR) 5 MG 08-24 00:00: 00 Yes [facility] apixaban 5 mg tablet 08-24 00:00: 00 08-19 05:59 :00 No [id number] 5mg Take 1 tablet by mouth in the morning and 1 tablet in the evening. Do all this for 360 days. Indication s: atrial fibrillati on [facility] aspirin 81 mg chewable tablet 08-24 00:00: 00 08-19 05:59 :00 No [id number] 81mg Take 1 tablet by mouth in the morning for 360 days. [facility] gabapentin 100 mg capsule 08-24 00:00: 00 09-23 04:59 :00 No [id number] 200mg Take 2 capsules by mouth in the morning and 2 capsules at noon and 2 capsules in the evening. Do all this for 30 days. [facility] acetaminoph en 325 mg tablet 08-24 00:00: 00 09-07 04:59 :00 No [id number] 650mg Take 2 tablets by mouth every 6 (six) hours for 14 days. [facility] ibuprofen 400 mg tablet 08-24 00:00: 00 09-07 04:59 :00 No [id number] 400mg Take 1 tablet by mouth in the morning and 1 tablet at noon and 1 tablet in the evening. Take with meals. Do all this for 14 days. [facility] methIMAzole 5 mg tablet 08-24 00:00: 00 09-07 04:59 :00 No [id number] 5mg Take 1 tablet by mouth in the morning for 14 days. [facility] oxyCODONE 5 mg immediate release tablet 08-24 00:00: 00 08-31 05:59 :00 No [id number] 5mg Take 1 tablet by mouth every 6 (six) hours as needed for Pain (scale 7-10) for up to 7 days. Indication s: acute pain [facility] gabapentin (NEURONTIN) capsule 200 mg 08-23 20:00: 00 Yes 200mg 200 mg, Oral, TID, First dose on 08/23/23 at 1400, Until Discontinu ed, Routine [facility] ibuprofen (IBU) tablet 400 mg 08-23 15:30: 00 Yes 400mg 400 mg, Oral, TID MEALS, First dose on 08/23/23 at 0930, Until Discontinu ed, Routine [facility] acetaminoph en (TYLENOL) tablet 650 mg 08-23 15:30: 00 Yes 650mg 650 mg, Oral, Q6H, First dose on 08/23/23 at 0930, Until Discontinu ed, Routine [facility] methocarbam oL (ROBAXIN) tablet 500 mg 08-23 15:30: 00 Yes 500mg 500 mg, Oral, QID, First dose on 08/23/23 at 0930, Until Discontinu ed, Routine [facility] oxyCODONE immediate release tablet 5 mg 08-23 15:15: 15 Yes 5mg 5 mg, Oral, Q6HPRN, Starting on 08/23/23 at 0915, Until Discontinu ed, Routine, Pain (scale 7-10)
F aculty member approving Restricted medication : NILSA DE JESUS [facility] sodium chloride tablet 1 g 08-22 23:00: 00 08-23 14:49 :00 No 1g 1 g, Oral, BID MEALS, 2 doses, First dose on 08/22/23 at 1700, Last dose on 08/23/23 at 0800, Routine [facility] magnesium sulfate in water 2 gram/50 mL (4 %) infusion 2 g 08-22 15:30: 00 08-22 18:37 :00 No 2g 2 g, IV Piggyback, Administer over 60 Minutes, ONCE, 1 dose, On 08/22/23 at 0930, Routine [facility] apixaban (ELIQUIS) tablet 2.5 mg 08-22 14:00: 00 08-23 18:03 :43 No 2.5mg 2.5 mg, Oral, BID, First dose on 08/22/23 at 0800, Until Discontinu ed, Routine
Indicatio ns: DVT/PE [facility] furosemide (LASIX) injection 20 mg 08-22 04:30: 00 08-22 05:26 :00 No 20mg 20 mg, IV Push, ONCE, 1 dose, On Thu08/21/23 at 2230, Routine [facility] methIMAzole (TAPAZOLE) tablet 5 mg 08-21 15:00: 00 Yes 5mg 5 mg, Oral, DAILY, First dose on Thu08/21/23 at 0900, Until Discontinu ed, Routine [facility] heparin 25,000 Units/250 mL (Premixed Bag) in 0.45 % NS 08-21 14:55: 33 Yes 0U/h 0-2,350 Units/hr (0-23.5 mL/hr), IV Infusion, TITRATE, Parameters in Admin. Instr., Starting on Thu08/21/23 at 0855
In itiate dosing:&nb sp; & nbsp;&nbsp ; -Patient 73 kg or under: 1,300 Units/hr (Calculate d dose at 18 units/kg/h r) &n bsp; &nbs p; -Patient over 73 k,300 units/hr&n bsp;DO NOT Exceed the MAXIMUM 1,300 units/hr for initiation of heparin drip.&nbsp ; CAU TION - If LMWH given in ER, AVOID bolus and start next dose/drip 12 hrs after ER dosage.&nb sp; M ust program rate using programmab le infusion pump.&nbsp ; Mansi ck with the ordering provider first prior to any administra tion should the patient be on existing/a dditional anticoagul ant therapy. Rang e, Dosing and Testing: &nbs p;DO NOT ADJUST INITIAL BOLUS OR INITIAL INFUSION RATE.&nbsp ; _ &nb sp;FOR [facility], AND [facility] ONLY &nbs p; - aPTT < 35: & nbsp;Bolus 5000 units, increase rate 300 units/hr&n bsp; - aPTT 35-44:&nbs p; Ashok nolan 3000 units, increase rate 200 units/hr&n bsp; - aPTT 45-54:&nbs p; In crease rate 100 units/hr&n bsp; - aPTT 55-85:&nbs p; NO CHANGE&nbs p; - aPTT 86-95:&nbs p; De crease rate 100 units/hr&n bsp; - aPTT 96-120:&nb sp; H old 30 minutes, decrease rate 150 units/hr&n bsp; - aPTT > 120: Hold 60 minutes, decrease rate 200 units/hr&n bsp; Check aPTT 6 hours after initiation , then Q6H after every change, aPTT Q12H once therapeuti c levels are reached.&n bsp; &nbs p; __ &n bsp;FOR [facility] ONLY - aPTT < 40: & nbsp;Bolus 5000 units, increase rate 300 units/hr&n bsp; - aPTT 40-49:&nbs p; Ashok nolan 3000 units, increase rate 200 units/hr&n bsp; - aPTT 50-59:&nbs p;&nbs p;Increase rate 100 units/hr&n bsp; - aPTT 60-85:&nbs p; NO CHANGE&nbs p; - aPTT 86-95:&nbs p; De crease rate 100 units/hr&n bsp; - aPTT 96-120:&nb sp; H old 30 minutes, decrease rate 150 units/hr&n bsp; - aPTT > 120: Hold 60 minutes, decrease rate 200 units/hr&n bsp; Check aPTT 6 hours after initiation , then Q6H after every change, aPTT Q12H once therapeuti c levels are reached.<b r> [facility] heparin (1,000 unit/mL, 10 mL vial) 08-21 14:55: 20 Yes 3000U FOR REBOLUSING , Starting on Thu08/21/23 at 0855, Until Discontinu ed, Routine
Dosing based on aPTT testing parameters (refer to continuous heparin drip order)
[facility] carvediloL (COREG) tablet 12.5 mg 08-21 14:00: 00 Yes 12.5mg 12.5 mg, Oral, BID MEALS, First dose (after last modificati on) on Thu08/21/23 at 0800, Until Discontinu ed, Routine [facility] magnesium oxide (MAG-OX 400) tablet 400 mg 08-21 14:00: 00 08-22 13:59 :00 No 400mg 400 mg, Oral, BID, 2 doses, First dose on Thu08/21/23 at 0800, Last dose on Thu08/21/23 at 2000, Routine [facility] atorvastati n (LIPITOR) tablet 40 mg 08-21 03:00: 00 Yes 40mg 40 mg, Oral, QHS, First dose (after last modificati on) on Jnaette 08/20/23 at 2100, Until Discontinu ed, Routine [facility] heparin 25,000 Units/250 mL (Premixed Bag) in 0.45 % NS 08-21 02:00: 00 08-21 14:56 :53 No 500U/h 500 Units/hr (5 mL/hr), IV Infusion, TITRATE, Parameters in Admin. Instr., DO NOT TITRATE, Starting on Thu08/20/23 at 2000 [facility] sulfur hexafluorid e microsphr (LUMASON) injection 5 mL 08-20 22:00: 00 08-20 22:00 :00 No [id number] 5mL 5 mL, Intravenou s, ONCE, 1 dose, On Thu08/20/23 at 1600, Routine [facility] niCARdipine (CARDENE I.V.) 40 mg in NaCL 200 mL (RTU) infusion 08-20 21:17: 32 08-21 11:51 :17 No 2.5mg/h 2.5-15 mg/hr (12.5-75 mL/hr), IV Infusion, TITRATE, SBP Goal < 180 mmHg, Starting on Thu08/20/23 at 1517
In itiate infusion at 2.5 mg/hr.&nbs p; Ti trate by 2.5 mg/hr every 5 minutes to 15 minutes as needed to achieve and maintain goal blood pressure. Maximum dose = 15 mg/hr. If goal not maintained at maximum allowed dose, contact prescriber .
[facility] ceFAZolin (ANCEF) injection 1,000 mg 08-20 21:15: 00 08-23 21:14 :00 No 1000mg 1,000 mg, Intravenou s, Q8H ABX, 9 doses, First dose on Janette 08/20/23 at 1515, Last dose on Waldo 08/23/23 at 0715
Re ason for Anti-Infec tive: Documented Infection< br>Documen kendy Infection Site: Skin / Soft Tissue
Duration of Therapy: 7 days [facility] HYDROcodone -acetaminop hen (NORCO 5) 5-325 mg tablet 1 tablet 08-20 20:54: 44 Yes 1{tbl} 1 tablet, Oral, Q6HPRN, Starting on Janette 08/20/23 at 1454, Until Discontinu ed, Routine, Pain (scale 4-6) [facility] HYDROmorpho ne (DILAUDID) injection 0.5 mg 08-20 20:54: 12 08-22 20:53 :12 No .5mg 0.5 mg, Slow IV Push, Q4HPRN, Starting on Janette 08/20/23 at 1454, Until 08/22/23 at 1453, Routine, Pain (scale 7-10)
U se approved by (Faculty): [facility] aspirin chewable tablet 81 mg 08-20 15:00: 00 Yes 81mg 81 mg, Oral, DAILY, First dose on Thu08/20/23 at 0900, Until Discontinu ed, Routine [facility] pantoprazol e (PROTONIX) EC tablet 40 mg 08-20 15:00: 00 Yes 40mg 40 mg, Oral, DAILY, First dose on Thu08/20/23 at 0900, Until Discontinu ed, Routine
Indicatio n for use: None of the above [facility] amLODIPine (NORVASC) tablet 5 mg 08-20 15:00: 00 Yes 5mg 5 mg, Oral, DAILY, First dose on Thu08/20/23 at 0900, Until Discontinu ed, Routine [facility] heparin 1,000 unit/mL 10,000 Units in NaCl 0.9% (NS) 1,000 mL OR irrigation 08-20 14:38: 00 08-20 19:59 :23 No PRN, Starting on Thu08/20/23 at 0838, Intra-op [facility] carvediloL (COREG) tablet 12.5 mg 08-20 14:00: 00 08-21 11:51 :10 No 12.5mg 12.5 mg, Oral, BID MEALS, First dose on Thu08/20/23 at 0800, Until Discontinu ed, Routine [facility] heparin 25,000 Units/250 mL (Premixed Bag) in 0.45 % NS 08-20 05:25: 23 08-20 19:59 :23 No 0U/h 0-2,350 Units/hr (0-23.5 mL/hr), IV Infusion, TITRATE, Parameters in Admin. Instr., Starting on Thu08/19/23 at 2325
In itiate dosing:&nb sp; & nbsp;&nbsp ; -Patient 73 kg or under: 1,300 Units/hr (Calculate d dose at 18 units/kg/h r) &n bsp; &nbs p; -Patient over 73 k,300 units/hr&n bsp;DO NOT Exceed the MAXIMUM 1,300 units/hr for initiation of heparin drip.&nbsp ; CAU TION - If LMWH given in ER, AVOID bolus and start next dose/drip 12 hrs after ER dosage.&nb sp; M ust program rate using programmab le infusion pump.&nbsp ; Mansi ck with the ordering provider first prior to any administra tion should the patient be on existing/a dditional anticoagul ant therapy. Rang e, Dosing and Testing: &nbs p;DO NOT ADJUST INITIAL BOLUS OR INITIAL INFUSION RATE.&nbsp ; _ &nb sp;FOR [facility], [facility], AND [facility] ONLY &nbs p; - aPTT < 35: & nbsp;Bolus 5000 units, increase rate 300 units/hr&n bsp; - aPTT 35-44:&nbs p; Ashok nolan 3000 units, increase rate 200 units/hr&n bsp; - aPTT 45-54:&nbs p; In crease rate 100 units/hr&n bsp; - aPTT 55-85:&nbs p; NO CHANGE&nbs p; - aPTT 86-95:&nbs p; De crease rate 100 units/hr&n bsp; - aPTT 96-120:&nb sp; H old 30 minutes, decrease rate 150 units/hr&n bsp; - aPTT > 120: Hold 60 minutes, decrease rate 200 units/hr&n bsp; Check aPTT 6 hours after initiation , then Q6H after every change, aPTT Q12H once therapeuti c levels are reached.&n bsp; &nbs p; __ &n bsp;FOR [facility] ONLY - aPTT < 40: & nbsp;Bolus 5000 units, increase rate 300 units/hr&n bsp; - aPTT 40-49:&nbs p; Ashok nolan 3000 units, increase rate 200 units/hr&n bsp; - aPTT 50-59:&nbs p;&nbs p;Increase rate 100 units/hr&n bsp; - aPTT 60-85:&nbs p; NO CHANGE&nbs p; - aPTT 86-95:&nbs p; De crease rate 100 units/hr&n bsp; - aPTT 96-120:&nb sp; H old 30 minutes, decrease rate 150 units/hr&n bsp; - aPTT > 120: Hold 60 minutes, decrease rate 200 units/hr&n bsp; Check aPTT 6 hours after initiation , then Q6H after every change, aPTT Q12H once therapeuti c levels are reached.<b r> [facility] heparin (1,000 unit/mL, 10 mL vial) 08-20 05:25: 18 08-20 19:59 :23 No 3000U FOR REBOLUSING , Starting on Thu08/19/23 at 2325, Until Janette 08/20/23 at 1359, Routine
Dosing based on aPTT testing parameters (refer to continuous heparin drip order)
[facility] iohexol (OMNIPAQUE 350 BULK-150 mL) injection 120 mL 08-20 05:00: 00 08-20 04:49 :00 No [id number] 120mL 120 mL, Intravenou s, ONCE, 1 dose, On Thu08/19/23 at 2300, Routine [facility] atorvastati n (LIPITOR) tablet 20 mg 08-20 03:00: 00 08-20 05:30 :48 No 20mg 20 mg, Oral, QHS, First dose on Thu08/19/23 at 2100, Until Discontinu ed, Routine [facility] traMADoL (ULTRAM) tablet 50 mg 08-20 02:36: 10 Yes 50mg 50 mg, Oral, Q4HPRN, Starting on Thu08/19/23 at 2035, Until Discontinu ed, Routine, Pain (scale 4-6) [facility] acetaminoph en (TYLENOL) tablet 650 mg 08-20 02:36: 07 Yes 650mg 650 mg, Oral, Q6HPRN, Starting on Thu08/19/23 at 2035, Until Discontinu ed, Routine, Pain (scale 1-3) [facility] ondansetron (ZOFRAN (PF)) injection 4 mg 08-20 02:36: 06 Yes 4mg 4 mg, Slow IV Push, Q6HPRN, Starting on Thu08/19/23 at 2035, Until Discontinu ed, Routine, Nausea and Vomiting (N/V) [facility] heparin 1000 unit/mL injection Soln 5,000 Units 08-19 21:30: 00 08-19 22:09 :00 No 5000U 5,000 Units, IV Push, ONCE, 1 dose, On Thu08/19/23 at 1530, Routine [facility] heparin 25,000 Units/250 mL (Premixed Bag) in 0.45 % NS 08-19 21:20: 17 08-20 05:25 :42 No 0U/h 0-2,350 Units/hr (0-23.5 mL/hr), IV Infusion, TITRATE, Parameters in Admin. Instr., Starting on Thu08/19/23 at 1520
In itiate dosing:&nb sp; & nbsp;&nbsp ; -Patient 73 kg or under: 1,300 Units/hr (Calculate d dose at 18 units/kg/h r) &n bsp; &nbs p; -Patient over 73 k,300 units/hr&n bsp;DO NOT Exceed the MAXIMUM 1,300 units/hr for initiation of heparin drip.&nbsp ; CAU TION - If LMWH given in ER, AVOID bolus and start next dose/drip 12 hrs after ER dosage.&nb sp; M ust program rate using programmab le infusion pump.&nbsp ; Mansi ck with the ordering provider first prior to any administra tion should the patient be on existing/a dditional anticoagul ant therapy. Rang e, Dosing and Testing: &nbs p;DO NOT ADJUST INITIAL BOLUS OR INITIAL INFUSION RATE.&nbsp ; _ &nb sp;FOR [facility], [facility], AND [facility] ONLY &nbs p; - aPTT < 35: & nbsp;Bolus 5000 units, increase rate 300 units/hr&n bsp; - aPTT 35-44:&nbs p; Ashok nolan 3000 units, increase rate 200 units/hr&n bsp; - aPTT 45-54:&nbs p; In crease rate 100 units/hr&n bsp; - aPTT 55-85:&nbs p; NO CHANGE&nbs p; - aPTT 86-95:&nbs p; De crease rate 100 units/hr&n bsp; - aPTT 96-120:&nb sp; H old 30 minutes, decrease rate 150 units/hr&n bsp; - aPTT > 120: Hold 60 minutes, decrease rate 200 units/hr&n bsp; Check aPTT 6 hours after initiation , then Q6H after every change, aPTT Q12H once therapeuti c levels are reached.&n bsp; &nbs p; __ &n bsp;FOR [facility] ONLY - aPTT < 40: & nbsp;Bolus 5000 units, increase rate 300 units/hr&n bsp; - aPTT 40-49:&nbs p; Ashok nolan 3000 units, increase rate 200 units/hr&n bsp; - aPTT 50-59:&nbs p;&nbs p;Increase rate 100 units/hr&n bsp; - aPTT 60-85:&nbs p; NO CHANGE&nbs p; - aPTT 86-95:&nbs p; De crease rate 100 units/hr&n bsp; - aPTT 96-120:&nb sp; H old 30 minutes, decrease rate 150 units/hr&n bsp; - aPTT > 120: Hold 60 minutes, decrease rate 200 units/hr&n bsp; Check aPTT 6 hours after initiation , then Q6H after every change, aPTT Q12H once therapeuti c levels are reached.<b r> [facility] cilostazol 100 mg tablet 08-10 00:00: 00 Yes mg [facility] carvedilol 6.25 mg tablet 08-03 00:00: 00 Yes mg [facility] APPLY TO AFFECTED AREA 3 TIMES A DAY 08-01 00:00: 00 Yes [facility] TAKE 1 CAPSULE BY MOUTH THREE TIMES A DAY NEEDED COUGH 08-01 00:00: 00 Yes [facility] amlodipine 5 mg tablet 07-15 00:00: 00 Yes mg [facility] chlorthalid one 25 mg tablet 2022-06 00:00: 00 Yes mg [facility] METHIMAZOLE 5MG 2022-06 00:00: 00 Yes [facility] TAKE 1 TABLET BY MOUTH EVERY DAY 2022-06 00:00: 00 Yes 5 [facility] lovastatin 20 mg tablet 2022-06 0-07 00:00: 00 Yes mg [facility] TAKE 1 TABLET ONCE DAILY. 2022-06 00:00: 00 10-28 00:00 :00 No 5 [facility] Xarelto 20 mg tablet 0 9-13 00:00: 00 Yes mg [facility] XARELTO 20MG 0 9-07 00:00: 00 Yes [facility] TAKE 1 TABLET BY MOUTH EVERY 6 HOURS NEEDED FOR PAIN 0 8-28 00:00: 00 Yes [facility] TAKE 1 TABLET ONCE DAILY. 0 8-08 00:00: 00 10-28 00:00 :00 No 5 [facility] METHIMAZOLE 5MG 0 7-26 00:00: 00 Yes 5000 [facility] AMLODIPINE 5MG 0 7-20 00:00: 00 Yes 5000 [facility] TAKE 1 TABLET DAILY. 0 7-20 00:00: 00 10-28 00:00 :00 No 10 [facility] TAKE 1 TABLET ONCE DAILY. 0 7-20 00:00: 00 10-28 00:00 :00 No 5 [facility] TAKE 1 TABLET BY MOUTH TWICE A DAY WITH MEALS 0 7-10 00:00: 00 10-28 00:00 :00 No 625 [facility] LOVASTATIN 20MG 0 6-18 00:00: 00 Yes [facility] TAKE 1 TABLET BY MOUTH TWICE A DAY WITH MEALS 0 5-30 00:00: 00 Yes [facility] TAKE 1 TABLET BY MOUTH EVERY DAY 0 5-30 00:00: 00 Yes [facility] TAKE 1 TABLET DAILY. 0 5-30 00:00: 00 10-28 00:00 :00 No 25 [facility] TAKE 1 TABLET ONCE DAILY. 0 5-30 00:00: 00 10-28 00:00 :00 No 5 [facility] TAKE 1 TABLET BY MOUTH EVERY DAY 0 5-08 00:00: 00 10-28 00:00 :00 No 5 [facility] TAKE 1 TABLET BY MOUTH EVERY DAY 0 4-24 00:00: 00 10-28 00:00 :00 No 5 [facility] TAKE 1 TABLET EVERY 8 HOURS NEEDED. 4- 00:00: 00 10-28 00:00 :00 No 800 [facility] TAKE 1 TABLET BY MOUTH EVERY DAY 3- 00:00: 00 Yes [facility] TAKE 1 TABLET DAILY. 3- 00:00: 00 10-28 00:00 :00 No 25 [facility] TAKE 1 TABLET DAILY. 09-24 00:00: 00 10-28 00:00 :00 No 20 [facility] ALBUTEROL PA HFA 200 INH 2- 00:00: 00 Yes [facility] PREDNISONE 20MG 2 00:00: 00 Yes [facility] TAKE 1 CAPSULE BY MOUTH EVERY 8 HOURS NEEDD FOR COUIGH 08-06 00:00: 00 Yes [facility] INHALE 2 PUFFS EVERY 4 TO6 HOURS NEEDED 2 00:00: 00 Yes [facility] 10 ML Q 4 TO 6 HOURS PRN COUGH FOR 5 DAYS 2 00:00: 00 10-28 00:00 :00 No [id number] [facility] HYDROCO/APA P 7.5-325 2021-06 1- 00:00: 00 Yes [facility] TAKE 1 TABLET BY MOUTH TWICE A DAY 01-03 00:00: 00 Yes 625 [facility] Dose Unknown 6-30 00:00: 00 Yes [facility] TAKE 1 TABLET BY MOUTH EVERY DAY AT NIGHT 0 12-25 00:00: 00 Yes [facility] Dose Unknown 0 6-29 00:00: 00 Yes [facility] &lt 0 6-29 00:00: 00 Yes Herman Gregg Banks Dose Unknown 6-28 00:00: 00 Yes [facility] CARVEDILOL 6.25MG 6-24 00:00: 00 Yes 6250 [facility] TAKE 1 TABLET BY MOUTH EVERY DAY AT NIGHT 0 6-23 00:00: 00 Yes [facility] Dose Unknown 6-23 00:00: 00 Yes [facility] &lt 2022-0 6-22 00:00: 00 Yes [facility] &lt 2022-0 6-16 00:00: 00 Yes [facility] &lt 2022-0 6-16 00:00: 00 Yes [facility] &lt 2-0 6-10 00:00: 00 Yes [facility] amlodipine 5 mg tablet 0 5-31 00:00: 00 Yes 1mg [facility] carvedilol 6.25 mg tablet 0 5-31 00:00: 00 Yes 1mg [facility] lovastatin 20 mg tablet 0 5-31 00:00: 00 Yes 1mg [facility] hydrochloro thiazide 12.5 mg capsule 0 -31 00:00: 00 Yes 1mg [facility] Dose Unknown 0 - 00:00: 00 Yes [facility] TAKE 1 TABLET BY MOUTH EVERY 8 HOURS NEEDED FOR PAIN 0 11-26 00:00: 00 Yes Herman Banks Dose Unknown 0 5-24 00:00: 00 Yes Herman Banks Dose Unknown 0 - 00:00: 00 Yes Herman Banks amlodipine 5 mg tablet 2020-0 -22 00:00: 00 Yes 1mg Herman Banks carvedilol 6.25 mg tablet 2020-0 -22 00:00: 00 Yes 1mg Herman Banks lovastatin 20 mg tablet 0 9-22 00:00: 00 Yes 1mg Herman Banks hydrochloro thiazide 12.5 mg capsule 2020-0 9-22 00:00: 00 Yes 1mg Herman Banks ibuprofen 800 mg tablet 2020-0 8-19 00:00: 00 Yes 1mg Herman Banks cyclobenzap rine 5 mg tablet 2020-0 8-19 00:00: 00 Yes 1mg Herman Banks amlodipine 5 mg tablet 2020-0 3-09 00:00: 00 Yes 1mg Herman Banks carvedilol 6.25 mg tablet 2020-0 3-09 00:00: 00 Yes 1mg Herman Banks lovastatin 20 mg tablet 2020-0 3-09 00:00: 00 Yes 1mg Herman Banks hydrochloro thiazide 12.5 mg capsule 309 00:00: 00 Yes 1mg Herman Banks hydroCHLORO thiazide 12.5 mg capsule 08-05 00:00: 00 Yes [id number] TAKE 1 CAPSULE BY MOUTH EVERY DAY [facility] AMLODIPINE 5 mg tablet 2019-06 00:00: 00 Yes [id number] TAKE 1 TABLET BY MOUTH EVERY DAY [facility] CARVEDILOL 12.5 mg tablet 2019-06 00:00: 00 Yes [id number] TAKE 1 TABLET BY MOUTH TWICE A DAY WITH MEALS [facility] atorvastati n 20 mg tablet 2019-06 00:00: 00 Yes 20mg Take 1 tablet by mouth at bedtime. [facility] hydroCHLORO thiazide 12.5 mg capsule 2019-06 00:00: 00 08-05 00:00 :00 No [id number] TAKE ONE CAPSULE BY MOUTH EVERY DAY [facility] amLODIPine 5 mg tablet 2019-06 00:00: 00 06-14 00:00 :00 No [id number] 5mg Take 1 tablet by mouth daily for 30 days. [facility] carvediloL 12.5 mg tablet 2019-06 00:00: 00 06-14 00:00 :00 No [id number] 12.5mg Take 1 tablet by mouth 2 (two) times daily with meals for 30 days. [facility] lovastatin 20 mg tablet 2019-06 00:00: 00 06-13 00:00 :00 No [id number] 20mg Take 1 tablet by mouth daily for 30 days. [facility] amlodipine 5 mg tablet 02-27 00:00: 00 Yes 1mg Herman Banks carvedilol 6.25 mg tablet 02-27 00:00: 00 Yes 1mg Herman Banks lovastatin 20 mg tablet 02-27 00:00: 00 Yes 1mg Herman Banks hydrochloro thiazide 12.5 mg capsule 02-27 00:00: 00 Yes 1mg Herman Banks amlodipine 5 mg tablet 08-26 00:00: 00 Yes 1mg Herman Banks carvedilol 6.25 mg tablet 08-26 00:00: 00 Yes 1mg Herman Banks lovastatin 20 mg tablet 08-26 00:00: 00 Yes 1mg Herman Banks hydrochloro thiazide 12.5 mg capsule 08-26 00:00: 00 Yes 1mg Herman Banks lovastatin 20 mg tablet 08-26 00:00: 00 06-08 00:00 :00 No 20mg Take 1 tablet by mouth at bedtime. [facility] hydroCHLORO thiazide 12.5 mg capsule 03-09 00:00: 00 06-08 00:00 :00 No [id number] TAKE ONE CAPSULE BY MOUTH EVERY DAY [facility] amLODIPine 5 mg tablet 03-04 00:00: 00 06-08 00:00 :00 No [id number] 5mg Take 1 tablet by mouth daily. [facility] carvedilol 12.5 mg tablet 02-23 00:00: 00 06-08 00:00 :00 No [id number] 12.5mg Take 1 tablet by mouth 2 (two) times daily with meals. [facility] amlodipine 5 mg tablet 02-18 00:00: 00 Yes 1mg Herman Banks carvedilol 6.25 mg tablet 02-18 00:00: 00 Yes 1mg Herman Banks lovastatin 20 mg tablet 02-18 00:00: 00 Yes 1mg Herman Banks hydrochloro thiazide 12.5 mg capsule 02-18 00:00: 00 Yes 1mg Herman Banks amlodipine 5 mg tablet 10-07 00:00: 00 Yes 1mg Herman Banks carvedilol 6.25 mg tablet 10-07 00:00: 00 Yes 1mg Herman Banks hydrochloro thiazide 12.5 mg capsule 10-07 00:00: 00 Yes 1mg Herman Banks lovastatin 20 mg tablet 10-04 00:00: 00 Yes 1mg Herman Banks amlodipine 5 mg tablet 09-27 00:00: 00 Yes 1mg Herman Banks carvedilol 6.25 mg tablet 09-27 00:00: 00 Yes 1mg Herman Banks hydrochloro thiazide 12.5 mg capsule 09-27 00:00: 00 Yes 1mg Herman Banks famotidine 20 mg tablet 07-21 00:00: 00 11-25 00:00 :00 No [id number] TAKE 1 TABLET BY MOUTH EVERY 12 HOURS FOR 10 DAYS [facility] HYDROCHLORO THIAZIDE 12.5 mg capsule 12-23 00:00: 00 03-08 00:00 :00 No [id number] TAKE ONE CAPSULE BY MOUTH EVERY DAY [facility] Zithromax Z-Lj 250 mg tablet 2016-06 00:00: 00 Yes mg Herman Banks amlodipine 5 mg tablet 2016-06 00:00: 00 Yes 1mg Herman Banks Crestor 40 mg tablet 2016-06 00:00: 00 Yes 1mg Herman Banks carvedilol 6.25 mg tablet 2016-06 00:00: 00 Yes 1mg Herman Banks hydrochloro thiazide 12.5 mg capsule 2016-06 00:00: 00 Yes 1mg Herman Banks Crestor 40 mg tablet 2016-06 00:00: 00 Yes 1mg Herman Banks amlodipine 5 mg tablet 2016-06 00:00: 00 Yes 1mg Herman Banks carvedilol 6.25 mg tablet 2016-06 00:00: 00 Yes 1mg Herman Banks hydrochloro thiazide 12.5 mg capsule 2016-06 00:00: 00 Yes 1mg Herman Banks Crestor 40 mg tablet 02-17 00:00: 00 Yes 1mg Herman Banks amlodipine 5 mg tablet 02-12 00:00: 00 Yes 1mg Herman Banks simvastatin 40 mg tablet 02-12 00:00: 00 Yes 1mg Herman Banks lisinopril 20 mg-hydrochl orothiazide 12.5 mg tablet 02-12 00:00: 00 Yes 1mg Herman Banks carvedilol 6.25 mg tablet 02-12 00:00: 00 Yes 1mg Herman Banks hydrochloro thiazide 12.5 mg capsule 02-12 00:00: 00 Yes 1mg Herman Banks Immunizations Ordered Immunization Name Filled Immunization Name Date Status Comments Source Tdap Tdap 2022-10-02 00:00:00 Completed Herman Banks SHINGRIX VACCINE SHINGRIX VACCINE 2022-10-02 00:00:00 Completed Herman Banks Vital Signs Vital Name Observation Time Observation Value Comments S ource Systolic blood pressure 2023-12-11 17:35:00 150 mm[Hg] [facility] Diastolic blood pressure 2023-12-11 17:35:00 81 mm[Hg] [facility] Heart rate 2023-12-11 17:35:00 74 /[facility] Body temperature 2023-12-11 17:32:00 36.61 Cheryl [facility] Respiratory rate 2023-12-11 17:32:00 14 /min [facility] Body height 2023-12-11 17:32:00 167.6 cm [facility] Body weight 2023-12-11 17:32:00 79.833 kg [facility] BMI 2023-12-11 17:32:00 28.41 kg/m2 [facility] Oxygen saturation in Arterial blood by Pulse oximetry 2023-12-11 17:32:00 100 /min [facility] Systolic blood pressure 2023-11-26 21:47:00 143 mm[Hg] [facility] Diastolic blood pressure 2023-11-26 21:47:00 90 mm[Hg] [facility] Heart rate 2023-11-26 21:47:00 74 /min [facility] Oxygen saturation in Arterial blood by Pulse oximetry 2023-11-26 21:47:00 95 /min [facility] Respiratory rate 2023-11-26 21:45:00 24 /min [facility] Body temperature 2023-11-26 18:50:00 36.78 Cheryl [facility] Body height 2023-11-26 14:57:00 167.6 cm [facility] Body weight 2023-11-26 14:57:00 76.7 kg [facility] BMI 2023-11-26 14:57:00 27.29 kg/m2 [facility] Systolic blood pressure 2023-11-26 19:45:00 133 mm[Hg] [facility] Diastolic blood pressure 2023-11-26 19:45:00 85 mm[Hg] [facility] Heart rate 2023-11-26 19:45:00 71 /min Unive [facility] Respiratory rate 2023-11-26 19:45:00 13 /min [facility] Oxygen saturation in Arterial blood by Pulse oximetry 2023-11-26 19:45:00 92 /min [facility] Body temperature 2023-11-26 18:50:00 36.78 Cheryl [facility] Body height 2023-11-26 14:57:00 167.6 cm [facility] Body weight 2023-11-26 14:57:00 76.7 kg [facility] BMI 2023-11-26 14:57:00 27.29 kg/m2 [facility] Systolic blood pressure 2023-11-16 21:09:00 134 mm[Hg] [facility] Diastolic blood pressure 2023-11-16 21:09:00 80 mm[Hg] [facility] Heart rate 2023-11-16 21:09:00 80 /min Un[facility] Oxygen saturation in Arterial blood by Pulse oximetry 2023-11-16 21:09:00 99 /min [facility] Body temperature 2023-11-16 21:04:00 36.61 Cheryl [facility] Respiratory rate 2023-11-16 21:04:00 16 /min [facility] Body weight 2023-11-16 21:04:00 77.111 kg [facility] BMI 2023-11-16 21:04:00 27.44 kg/m2 [facility] Systolic blood pressure 2023-10-23 15:07:00 138 mm[Hg] [facility] Diastolic blood pressure 2023-10-23 15:07:00 75 mm[Hg] [facility] Heart rate 2023-10-23 15:07:00 82 /min Unive [facility] Body temperature 2023-10-23 15:02:00 36.5 Cheryl [facility] Respiratory rate 2023-10-23 15:02:00 20 /min [facility] Body height 2023-10-23 15:02:00 167.6 cm [facility] Body weight 2023-10-23 15:02:00 78.019 kg [facility] BMI 2023-10-23 15:02:00 27.76 kg/m2 [facility] Oxygen saturation in Arterial blood by Pulse oximetry 2023-10-23 15:02:00 99 /min [facility] Systolic blood pressure 2023-09-14 21:42:00 115 mm[Hg] [facility] Diastolic blood pressure 2023-09-14 21:42:00 69 mm[Hg] [facility] Heart rate 2023-09-14 21:42:00 110 /min Unive [facility] Respiratory rate 2023-09-14 21:42:00 18 /min [facility] Body height 2023-09-14 21:42:00 166.4 cm [facility] Body weight 2023-09-14 21:42:00 79.379 kg [facility] BMI 2023-09-14 21:42:00 28.68 kg/m2 [facility] Oxygen saturation in Arterial blood by Pulse oximetry 2023-09-14 21:42:00 99 /min [facility] Systolic blood pressure 2023-08-24 22:39:00 131 mm[Hg] [facility] Diastolic blood pressure 2023-08-24 22:39:00 65 mm[Hg] [facility] Heart rate 2023-08-24 22:39:00 77 /min Unive [facility] Body temperature 2023-08-24 22:39:00 36.78 Cheryl [facility] Respiratory rate 2023-08-24 22:39:00 17 /min [facility] Oxygen saturation in Arterial blood by Pulse oximetry 2023-08-24 22:39:00 100 /min [facility] Body height 2023-08-22 18:20:00 167.6 cm [facility] Body weight 2023-08-22 18:20:00 72.6 kg [facility] BMI 2023-08-22 18:20:00 25.85 kg/m2 [facility] Systolic blood pressure 2023-08-20 10:40:00 137 mm[Hg] [facility] Diastolic blood pressure 2023-08-20 10:40:00 91 mm[Hg] [facility] Heart rate 2023-08-20 10:40:00 95 /min Un[facility] Body temperature 2023-08-20 10:40:00 36.67 Cheryl [facility] Respiratory rate 2023-08-20 10:40:00 16 /min [facility] Oxygen saturation in Arterial blood by Pulse oximetry 2023-08-20 10:40:00 100 /min [facility] Body height 2023-08-20 01:47:00 167.6 cm [facility] Body weight 2023-08-20 01:47:00 72.6 kg [facility] BMI 2023-08-20 01:47:00 25.85 kg/m2 [facility] Body weight 2020-06-08 17:41:00 80.06 kg [facility] BMI 2020-06-08 17:41:00 28.49 kg/m2 [facility] Oxygen saturation in Arterial blood by Pulse oximetry 2020-06-08 17:41:00 100 /min [facility] Systolic blood pressure 2020-06-08 17:41:00 129 mm[Hg] [facility] Diastolic blood pressure 2020-06-08 17:41:00 79 mm[Hg] [facility] Heart rate 2020-06-08 17:41:00 79 /min Un[facility] Body height 2020-06-08 17:41:00 167.6 cm [facility] Systolic blood pressure 2019-02-23 13:48:00 137 mm[Hg] [facility] Diastolic blood pressure 2019-02-23 13:48:00 91 mm[Hg] [facility] Heart rate 2019-02-23 13:46:00 93 /min [facility] Respiratory rate 2019-02-23 13:46:00 20 /min [facility] Body height 2019-02-23 13:46:00 167.6 cm [facility] Body weight 2019-02-23 13:46:00 76.204 kg [facility] BMI 2019-02-23 13:46:00 27.12 kg/m2 [facility] Oxygen saturation in Arterial blood by Pulse oximetry 2019-02-23 13:46:00 98 /min [facility] BP Systolic 2023-12-09 11:45:00 139 mm[Hg] Step hen F Darren BP Diastolic 2023-12-09 11:45:00 86 mm[Hg] Carlos Eduardo phen F [facility] Weight Measured 2023-12-09 11:45:00 177.00 pounds Herman F Darren Height Measured 2023-12-09 11:45:00 66.33 inches Herman [facility] Body Temperature 2023-12-09 11:45:00 98.20 degrees Herman F Darren Heart Rate 2023-12-09 11:45:00 82.00 /min Viky en F [facility] Respiratory Rate 2023-12-09 11:45:00 18.00 /min Herman F Darren BP Systolic 2023-11-23 11:54:00 164 mm[Hg] Step hen F Darren BP Diastolic 2023-11-23 11:54:00 100 mm[Hg] Carlos Eduardo phen F [facility] Weight Measured 2023-11-23 11:54:00 173.20 pounds Herman F Darren Height Measured 2023-11-23 11:54:00 66.33 inches Herman F Darren Body Temperature 2023-11-23 11:54:00 98.20 degrees Herman F Darren Heart Rate 2023-11-23 11:54:00 73.00 /min Viky en F [facility]ren Respiratory Rate 2023-11-23 11:54:00 17.00 /min Herman F Darren BP Systolic 2023-11-23 10:39:00 164 mm[Hg] Step hen F Darren BP Diastolic 2023-11-23 10:39:00 100 mm[Hg] Carlos Eduardo phen F [facility]ren Weight Measured 2023-11-23 10:39:00 173.20 pounds Herman F Darren Height Measured 2023-11-23 10:39:00 66.33 inches Herman F Darren Body Temperature 2023-11-23 10:39:00 98.20 degrees Herman F Darren Heart Rate 2023-11-23 10:39:00 73.00 /min Viky en F [facility]ren Respiratory Rate 2023-11-23 10:39:00 17.00 /min Herman F Darren BP Systolic 2023-09-29 17:18:00 101 mm[Hg] Step hen F Darren BP Diastolic 2023-09-29 17:18:00 68 mm[Hg] Carlos Eduardo phen F [facility]ren Weight Measured 2023-09-29 17:18:00 169.60 pounds Herman F Darern Height Measured 2023-09-29 17:18:00 66.33 inches Herman F Darren Body Temperature 2023-09-29 17:18:00 97.80 degrees Herman F Darren Heart Rate 2023-09-29 17:18:00 101.00 /min Step hen F [facility]ren Respiratory Rate 2023-09-29 17:18:00 20.00 /min Herman F Darren BP Systolic 2023-09-22 10:33:00 150 mm[Hg] Step hen F Darren BP Diastolic 2023-09-22 10:33:00 79 mm[Hg] Carlos Eduardo phen F [facility]ren Weight Measured 2023-09-22 10:33:00 170.60 pounds Herman F Darren Height Measured 2023-09-22 10:33:00 66.33 inches Herman F Darren Body Temperature 2023-09-22 10:33:00 98.20 degrees Herman F Darren Heart Rate 2023-09-22 10:33:00 96.00 /min Viky en F Darren Respiratory Rate 2023-09-22 10:33:00 19.00 /min Herman F Darren BP Systolic 2023-08-13 11:07:00 113 mm[Hg] Step hen F Darren BP Diastolic 2023-08-13 11:07:00 78 mm[Hg] Carlos Eduardo phen F [facility] Weight Measured 2023-08-13 11:07:00 Herman F Darren Height Measured 2023-08-13 11:07:00 66.33 inches Herman F Darren Body Temperature 2023-08-13 11:07:00 98.10 degrees Herman F Darren Heart Rate 2023-08-13 11:07:00 115.00 /min Step hen F [facility]ren Respiratory Rate 2023-08-13 11:07:00 19.00 /min Herman F Darren BP Systolic 2023-08-10 10:57:00 Step hen F Darren BP Diastolic 2023-08-10 10:57:00 Carlos Eduardo phen [facility]ren Weight Measured 2023-08-10 10:57:00 167.40 pounds Herman F Darren Height Measured 2023-08-10 10:57:00 66.33 inches Herman F Darren Body Temperature 2023-08-10 10:57:00 Herman F Darren Heart Rate 2023-08-10 10:57:00 Viky en F Darren Respiratory Rate 2023-08-10 10:57:00 Herman F Darren BP Systolic 2023-08-03 11:23:00 160 mm[Hg] Step hen F Darren BP Diastolic 2023-08-03 11:23:00 92 mm[Hg] Carlos Eduardo phen F Darren Weight Measured 2023-08-03 11:23:00 168.60 pounds Herman F Darren Height Measured 2023-08-03 11:23:00 66.33 inches Herman F Darren Body Temperature 2023-08-03 11:23:00 98.20 degrees Herman F Darren Heart Rate 2023-08-03 11:23:00 97.00 /min Viky en F Darren Respiratory Rate 2023-08-03 11:23:00 19.00 /min Herman F Darren BP Systolic 2023-07-02 17:08:00 122 mm[Hg] Step hen F Darren BP Diastolic 2023-07-02 17:08:00 75 mm[Hg] Carlos Eduardo phen F Darren Weight Measured 2023-07-02 17:08:00 163.60 pounds Herman F Darren Height Measured 2023-07-02 17:08:00 66.33 inches Herman F Darren Body Temperature 2023-07-02 17:08:00 98.20 degrees Herman F Darren Heart Rate 2023-07-02 17:08:00 52.00 /min Viky en F Darren Respiratory Rate 2023-07-02 17:08:00 16.00 /min Herman F Darren BP Systolic 2023-05-26 08:15:00 108 mm[Hg] Step hen F Darren BP Diastolic 2023-05-26 08:15:00 70 mm[Hg] Carlos Eduardo phen F Darren Weight Measured 2023-05-26 08:15:00 160.60 pounds Herman F Darren Height Measured 2023-05-26 08:15:00 66.33 inches Herman Banks Body Temperature 2023-05-26 08:15:00 98.20 degrees Herman Banks Heart Rate 2023-05-26 08:15:00 75.00 /min Viky en F Darren Respiratory Rate 2023-05-26 08:15:00 19.00 /min Hermanprisca Banks BP Systolic 2023-04-06 09:36:00 113 mm[Hg] Step hen F Darren BP Diastolic 2023-04-06 09:36:00 85 mm[Hg] Carlos Eduardo phen Gregg Banks Weight Measured 2023-04-06 09:36:00 158.60 pounds Herman Banks Height Measured 2023-04-06 09:36:00 66.33 inches Herman Banks Body Temperature 2023-04-06 09:36:00 98.10 degrees Herman Banks Heart Rate 2023-04-06 09:36:00 97.00 /min Viky en Gregg Banks Respiratory Rate 2023-04-06 09:36:00 19.00 /min Herman Banks Procedures Procedure Date / Time Performed Performing Clinician Source [place] TIME OR (NON-REPORTABLE) 2023-11-26 18:43[facility] 2023-11-26 18:43:00 Nilsa De Jesus [facility] [id number] - G ANGIOGRAPHY EXTREMITY BILATERAL RS&I 2023-11-26 17:07:00 Nilsa De Jesus [facility] [id number] - CH AORTOGRAPHY ABDOMINAL SERIALOGRAPHY RS&I 2023-11-26 17:07:00 Nilsa De Jesus [facility] [id number] - CHG US VASC ACCESS SITS VSL PATENCY NDL ENTRY 2023-11-26 17:07:00 Nilsa De Jesus [facility] [id number] - [place] SLCTV CATHJ 3RD+ ORD SLCTV ABDL PEL/LXTR [facility] 2023-11-26 17:07:00 Nilsa De Jesus [facility] [id number] - [place] SLCTV CATHJ EA 2ND+ ORD ABDL PEL/LXTR ART [facility] 2023-11-26 17:07:00 Nilsa De Jesus [facility] [id number] - [place] REVSC OPN/PRQ ILIAC ART W/STNT PLMT & ANGIOPLSTY 2023-11-26 17:07:00 Nilsa De Jesus [facility] [id number] - [place] REVSC OPN/PRQ FEM/POP W/STNT/ATHRC/ANGIOP [facility] 2023-11-26 17:07:00 Nilsa De Jesus [facility] [id number] - [place] REVSC OPN/PRQ TIB/LINDSAY W/STNT/ATHR/ANGIOP [facility] 2023-11-26 17:07:00 Nilsa De Jesus [facility] HB ECG ROUTINE & RHYTHM STRIP 2023-11-26 15:15:45 Chrissy Dodson [facility] ASSIGNMENT OF BENEFITS 2023-09-14 21:29:29 Docto r Unassigned, [place] [facility] OSMOLALITY URINE 2023-08-24 22:52:00 Josef Hammonds [facility] SODIUM, URINE RANDOM 2023-08-24 22:52:00 Josef Hammonds [facility] BASIC METABOLIC PANEL (NA, K, CL, CO2, GLUCOSE, BUN, CREATININE, CA) 2023-08-24 20:35:00 Josef Hammonds [facility] CBC WITH DIFF 2023-08-24 17:42:00 Josef Hammonds [facility] OSMOLALITY URINE 2023-08-23 22:48:00 Josef Hammonds [facility] SODIUM, URINE RANDOM 2023-08-23 22:48:00 Josef Hammonds [facility] PHOSPHORUS 2023-08-23 08:55:00 Shey Milian [facility] MAGNESIUM 2023-08-23 08:55:[facility] SERUM OR PLASMA 2023-08-23 08:55:00 Josef Hammonds [facility] BASIC METABOLIC PANEL (NA, K, CL, CO2, GLUCOSE, BUN, CREATININE, CA) 2023-08-23 08:55:00 Shey Milian [facility] CBC WITHOUT DIFF 2023-08-23 08:55:00 Shey Milian [facility] PHOSPHORUS 2023-08-22 09:22:00 [facility] 2023-08-22 09:22:00 [facility] BASIC METABOLIC PANEL (NA, K, CL, CO2, GLUCOSE, BUN, CREATININE, CA) 2023-08-22 09:22[facility] 2023-08-22 09:22:00 [facility] ACTIVATED PARTIAL THRMPLAS HOMER 2023-08-22 06:03:00 Issa [facility] ACTIVATED PARTIAL THRMPLAS HOMER 2023-08-21 23:09:00 Miguel Sevilla [facility] ACTIVATED PARTIAL THRMPLAS HOMER 2023-08-21 16:05:00 Issa [facility] ACTIVATED PARTIAL THRMPLAS HOMER 2023-08-21 16:05:00 Elana Parsons [facility] PHOSPHORUS 2023-08-21 10:03:00 Claudio Paz [facility] MAGNESIUM 2023-08-21 10:03:00 Claudio Paz [facility] BASIC METABOLIC PANEL (NA, K, CL, CO2, GLUCOSE, BUN, CREATININE, CA) 2023-08-21 10:03:00 Pérez [facility] CBC WITHOUT DIFF 2023-08-21 10:03:00 Pérez [facility] PHOSPHORUS 2023-08-21 10:03:00 Claudio Paz [facility] MAGNESIUM 2023-08-21 10:03:00 Claudio Paz [facility] BASIC METABOLIC PANEL (NA, K, CL, CO2, GLUCOSE, BUN, CREATININE, CA) 2023-08-21 10:03:00 Pérez [facility] CBC WITHOUT DIFF 2023-08-21 10:03:00 Pérez [facility] TRANSTHORACIC ECHO (TTE) COMPLETE W/ CONTRAST 2023-08-20 21:48:[facility] COMPLETE W/ CONTRAST 2023-08-20 21:48:33 Kendell Andrew [facility] BASIC METABOLIC PANEL (NA, K, CL, CO2, GLUCOSE, BUN, CREATININE, CA) 2023-08-20 21:20:00 Kendell [facility] CBC WITH DIFF 2023-08-20 21:20:00 Kendell [facility] BASIC METABOLIC PANEL (NA, K, CL, CO2, GLUCOSE, BUN, CREATININE, CA) 2023-08-20 21:20:00 Kendell [facility] CBC WITH DIFF 2023-08-20 21:20:00 Andrew dRz [facility] FL TIME OR (NON-REPORTABLE) 2023-08-20 19:54:00 [facility] [place] [facility] ([facility] 2023-08-20 19:54:00 Neal [facility] POCT ACT HIGH RANGE 2023-08-20 18:14:00 Aime Ankit [facility] POCT ACT HIGH RANGE 2023-08-20 17:41:00 Aime Ankit [facility] POCT ACT HIGH RANGE 2023-08-20 17:41:00 Ankit Salomon [facility] ARTERIOGRAM 2023-08-20 13:24:00 [facility] 2023-08-20 13:24:00 Neal [facility] ARTERIOGRAM 2023-08-20 13:24:00 Nilsa [facility] FEMORAL-DISTAL BYPASS GRAFT 2023-08-20 13:24:00 Neal [facility] ACTIVATED PARTIAL THRMPLAS HOMER 2023-08-20 11:46:00 Miguel Sevilla [facility] ABORH CONFIRMATION (LAB ONLY) 2023-08-20 11:46:00 Ankit Salomon [facility] ACTIVATED PARTIAL THRMPLAS HOMER 2023-08-20 11:46:00 Miguel Sevilla [facility] ABORH CONFIRMATION (LAB ONLY) 2023-08-20 11:46:00 Ankit Salomon [facility] PHOSPHORUS 2023-08-20 09:56:00 Sandhya Sevilla Lukas [facility] MAGNESIUM 2023-08-20 09:56:00 Sandhya Sevilla Lukas [facility] OSMOLALITY, SERUM OR PLASMA 2023-08-20 09:56:00 Josef Hammonds [facility] BASIC METABOLIC PANEL (NA, K, CL, CO2, GLUCOSE, BUN, CREATININE, CA) 2023-08-20 09:56:00 Miguel Sevilla Lukas [facility] CBC WITH DIFF 2023-08-20 09:56:00 Sandhya Sevilla [facility] HB ABO GROUPING 2023-08-20 09:56:00 Sandhya Sevilla Lukas [facility] PHOSPHORUS 2023-08-20 09:56:00 Sandhya Sevilla Lukas [facility] MAGNESIUM 2023-08-20 09:56:00 Sandhya Sevilla Lukas [facility] OSMOLALITY, SERUM OR PLASMA 2023-08-20 09:56:00 Josef Hammonds [facility] BASIC METABOLIC PANEL (NA, K, CL, CO2, GLUCOSE, BUN, CREATININE, CA) 2023-08-20 09:56:00 Miguel Sevilla Lukas [facility] CBC WITH DIFF 2023-08-20 09:56:00 Sandhya Sevilla [facility] HB ABO GROUPING 2023-08-20 09:56:00 Sandhya Sevilla Lukas [facility] ACTIVATED PARTIAL THRMPLAS HOMER 2023-08-20 05:45:00 Miguel Sevilla Lukas [facility] ACTIVATED PARTIAL THRMPLAS HOMER 2023-08-20 05:45:00 Roel Miguel Lukas [facility] CT ANGIOGRAM ABDOMEN/PELVIS 2023-08-20 05:06:00 Miguel Sevilla [facility] CT ANGIOGRAM LOWER EXTREMITY BILATERAL W CONTRAST 2023-08-20 05:06:00 Miguel Sevilla Lukas [facility] CT ANGIOGRAM ABDOMEN/PELVIS 2023-08-20 05:06:00 Roxannenathan Miguel Gaytan [facility] CT ANGIOGRAM LOWER EXTREMITY BILATERAL W CONTRAST 2023-08-20 05:06:00 Miguel Sevilla Lukas [facility] PROTHROMBIN TIME / INR 2023-08-19 21:57:00 Paul Smith [facility] ACTIVATED PARTIAL THRMPLAS HOMER 2023-08-19 21:57:00 Paul Smith [facility] PROTHROMBIN TIME / INR 2023-08-19 21:57:00 Paul Smith [facility] ACTIVATED PARTIAL THRMPLAS HOMER 2023-08-19 21:57:00 Paul Smith [facility] DUPLEX ARTERIAL LEG RIGHT - BY VASCULAR LAB 2023-08-19 21:14:39 Paul Smith [facility] DUPLEX ARTERIAL LEG RIGHT - BY VASCULAR LAB 2023-08-19 21:14:39 Paul Smith [facility] XR FOOT <3 VW RIGHT 2023-08-19 21:04:00 Paul Smith [facility] XR FOOT <3 VW RIGHT 2023-08-19 21:04:00 Paul Smith [facility] COMP. METABOLIC PANEL (57331) 2023-08-19 20:22:00 Paul Smith [facility] CBC WITH DIFF 2023-08-19 20:22:00 Paul Smith [facility] LACTIC ACID WHOLE BLOOD 2023-08-19 20:22:00 Arelis Smith [facility] COMP. METABOLIC PANEL (10711) 2023-08-19 20:22:00 Paul Smith [facility] CBC WITH DIFF 2023-08-19 20:22:00 Paul Smith [facility] LACTIC ACID WHOLE BLOOD 2023-08-19 20:22:00 Arelis Smith [facility] CONSENT/REFUSAL FOR DIAGNOSIS AND TREATMENT 2023-08-19 18:59:45 Doctor Unassigned, [place] [facility] CONSENT/REFUSAL FOR DIAGNOSIS AND TREATMENT 2023-08-19 18:59:45 Doctor Unassigned, [place] [facility] HOSPITAL ADMISSION 2023-08-19 06:01:00 Doctor Un assigned, [place] [facility] HOSPITAL ADMISSION 2023-08-19 06:01:00 Doctor Un assigned, [place] [facility] [id number] Ultrasound, Soft Tissues Of Head And Neck (eg, Thyroid, Parathyroid, Parotid), Real Time With Image Documentation 2023-01-22 00:00:00 Herman Banks 24050 Endometrial Bx W/wo Endocervix Bx W/o Dilat Spx 2021-12-25 00:00:00 Herman Banks 06984 Endometrial Bx W/wo Endocervix Bx W/o Dilat Spx 2020-09-24 00:00:00 Herman Banks ASSIGNMENT OF BENEFITS 2020-06-08 17:09:49 Docto r Unassigned, [place] [facility] PATIENT FINANCIAL POLICY 2019-02-23 13:24:08 Doctor Unassigned, [place] [facility] Encounters Start Date/Time End Date/Time Encounter Type Admission Type Attending Clinicians Care Facility Care Department Encounter ID Source 2023-12-12 09:33:54 2023-12-12 09:33:54 Outpatient SFA [facility] [id number] Herman Banks 2023-12-11 11:45:00 2023-12-11 12:58:10 Outpatient R NILSA DE JESUS JANI [facility] [id number] [facility] 2023-12-11 11:45:00 2023-12-11 12:58:10 Office Visit Nilsa De Jesus [facility] 1.2.840.114 350.1.13.10 4.2.7.2.686 [id number] [facility] 2023-11-30 00:00:00 2023-12-10 15:19:13 Telephone Neal Nilsa [facility] 1.20.114 350.1.13.10 4.2.7.2.686 [id number] [facility] 2023-12-09 11:45:00 2023-12-09 11:45:[address] [facility] [id number] Herman Banks 2023-12-09 00:00:00 2023-12-09 00:00:[address] [facility] [id number] Herman Banks 2023-11-26 09:43:00 2023-11-26 16:56:00 Outpatient R NEAL NILSAMelisa [facility] [id number] [facility] 2023-11-26 09:43:00 2023-11-26 16:56:00 Hospital Encounter [facility] 1.84.114 350.1.13.10 4.2.7.2.686 [id number] [facility] 2023-11-26 11:33:00 2023-11-26 14:52:00 Surgery [facility] 1.2840.114 350.1.13.10 4.2.7.2.686 [id number] [facility] 2023-11-23 00:00:00 2023-11-23 00:00:[address] 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 2, Noemi Freitas [facility] 1.2840.114 350.1.13.10 4.2.7.2.686 [id number] [facility] 2023-11-17 10:00:00 2023-11-17 09:56:45 Outpatient NOEMI HERNÁNDEZ [facility] [id number] [facility] 2023-11-16 16:00:00 2023-11-16 16:45:28 Outpatient R CHARLEY VEGA [facility] [id number] [facility] 2023-11-16 16:00:00 2023-11-16 16:45:28 Office Visit Charley [facility] 1.2.840.114 350.1.13.10 4.2.7.2.686 [id number] [facility] 2023-11-05 00:00:00 2023-11-05 10:52:18 [facility] 1..840.114 350.1.13.10 4.2.7.2.686 [id number] [facility] 2023-11-05 10:30:00 2023-11-05 10:30:00 Outpatient CHARL[facility] [id number] [facility] 2023-11-03 14:58:55 2023-11-03 23:59:00 [facility] [id number] [facility] 2023-11-03 14:58:55 2023-11-03 23:59:00 Hospital Encounter Emely [facility] 1.2.840.114 350.1.13.10 4.2.7.2.686 [id number] [facility] 2023-10-23 15:49:24 2023-10-23 23:59:00 Outpatient R CHARLEY VEGA [facility] [id number] [facility] 2023-10-23 15:49:24 2023-10-23 23:59:00 Hospital Encounter Mani Vegajuancarlos Davis [facility] 1.840.114 350.1.13.10 4.2.7.2.686 [id number] [facility] 2023-10-23 10:30:00 2023-10-23 10:59:55 Office Visit Noemi Argueta [facility] 1.840.114 350.1.13.10 4.2.7.2.686 [id number] [facility] 2023-10-16 08:00:00 2023-10-16 08:00:00 Outpatient R CLAYTONNancy CHARLEY [facility] [id number] [facility] 2023-10-09 15:00:00 2023-10-09 15:00:00 Outpatient R MACARIO CHARLEY [facility] [id number] [facility] 2023-10-02 14:30:00 2023-10-02 14:30:00 Outpatient R NOEMI ARGUETA [facility] [id number] [facility] 2023-09-29 17:02:28 2023-09-29 17:02:28 Outpatient [facility] [id number] Herman Banks 2023-09-28 15:00:00 2023-09-28 15:00:00 Outpatient R JAMATINELVIS CHARLEY [facility] [id number] [facility] 2023-09-24 00:00:00 2023-09-24 00:00:00 [facility] 1.840.114 350.1.13.10 4.2.7.2.686 [id number] [facility] 2023-09-22 10:24:02 2023-09-22 10:24:[address] [facility] [id number] Herman Banks 2023-09-21 13:30:00 2023-09-21 13:30:00 Outpatient R MANAV DE LA TORRE [facility] [id number] [facility] 2023-09-21 00:00:00 2023-09-21 00:00:00 Telephone Neal [facility] 1.840.114 350.1.13.10 4.2.7.2.686 [id number] [facility] 2023-09-14 16:30:00 2023-09-14 17:08:48 Outpatient R CHARLEY VEGA [facility] [id number] [facility] 2023-09-14 16:30:00 2023-09-14 17:08:48 Office Visit Charley Vega [facility] 1.0.114 350.1.13.10 4.2.7.2.686 [id number] [facility] 2023-09-14 00:00:00 2023-09-14 00:00:00 Orders Only Doctor Unassigned, [place] [facility] 1.2840.114 350.1.13.10 4.2.7.2.686 [id number] [facility] 2023-09-01 00:00:00 2023-09-01 00:00:00 Telephone Neal [facility] 1.0.114 350.1.13.10 4.2.7.2.686 [id number] [facility] 2023-08-25 00:00:00 2023-08-25 00:00:00 Transition of Care Elizabeth Vale 1.840.114 350.1.13.10 4.2.7.2.686 [id number] [facility] 2023-08-19 13:07:00 2023-08-24 20:12:00 Inpatient U NILSA DE JESUS [facility] [id number] [facility] 2023-08-19 13:07:00 2023-08-24 20:12:00 Hospital Encounter [facility] 1.2.840.114 350.1.13.10 4.2.7.2.686 [id number] [facility] 2023-08-20 07:06:00 2023-08-20 09:10:00 [facility] 1.2.840.114 350.1.13.10 4.2.7.2.686 [id number] [facility] 2023-08-13 10:52:11 2023-08-13 10:52:11 Outpatient SFA SFA [id number] Herman Escobedo Darren 2023-08-03 11:10:42 2023-08-03 11:10:42 Outpatient SFA SFA [id number] Herman Gregg [place] 2023-07-02 17:02:13 2023-07-02 17:02:13 Outpatient SFA SFA [id number] Herman Escobedo Darren 2023-05-27 15:00:28 2023-05-27 15:00:28 Outpatient SFA SFA [id number] Herman F Darren 2023-05-26 08:04:23 2023-05-26 08:04:23 Outpatient SFA SFA [id number] Herman Gregg Banks 2023-04-06 13:32:37 2023-04-06 13:32:37 Outpatient SFA SFA [id number] Herman Banks 2023-03-24 13:47:06 2023-03-24 13:47:06 Outpatient SFA SFA [id number] Hermanprisca Banks 2023-03-24 09:00:00 2023-03-24 09:00:00 Outpatient ANGELO SIMPSON [facility] [id number] [facility] 2023-03-18 15:16:26 2023-03-18 15:16:26 Outpatient SFA SFA [id number] Herman Gregg Banks 2023-03-17 10:00:00 2023-03-17 10:00:00 Outpatient R YENI AVILES [facility] [id number] [facility] 2023-03-13 00:00:00 2023-03-13 00:00:00 Outpatient R RADIOLOGY [facility] [id number] [facility] 2023-02-27 00:00:00 2023-02-27 00:00:00 Outpatient R RADIOLOGY [facility] [id number] [facility] 2023-02-03 09:50:32 2023-02-03 09:50:32 Outpatient SFA SFA [id number] Herman Gregg Banks 2023-01-22 09:04:13 2023-01-22 09:04:13 Outpatient SFA SFA [id number] Herman F Darren 2023-01-15 16:27:42 2023-01-15 16:27:42 Outpatient SFA SFA [id number] Herman F Darren 2022-11-25 09:42:27 2022-11-25 09:42:27 Outpatient SFA SFA [id number] Herman F Darren 2022-11-10 00:00:00 2022-11-10 00:00:00 Outpatient R RADIOLOGY [facility] [id number] [facility] 2022-11-04 15:22:35 2022-11-04 15:22:35 Outpatient SFA SFA [id number] Herman F Darren 2022-10-02 08:20:28 2022-10-02 08:20:28 Outpatient SFA SFA [id number] Herman F Darren 2022-09-24 11:05:18 2022-09-24 11:05:18 Outpatient SFA SFA [id number] Herman F Darren 2022-09-17 16:33:30 2022-09-17 16:33:30 Outpatient SFA SFA [id number] Herman F Darren 2022-08-04 16:50:10 2022-08-04 16:50:[address] [facility] [id number] Herman Banks 2021-06-13 15:30:00 2021-06-13 15:30:00 Outpatient R MANAV DE LA TORRE [facility] [id number] [facility] 2020-08-05 00:00:00 2020-08-05 00:00:00 Refill Manav De La Torre [facility] [place] [facility] 1.2.840.114 350.1.13.10 4.2.7.2.686 [id number] [facility] 2020-06-13 00:00:00 2020-06-13 00:00:00 Refill Manav De La Torre [facility] 1.2.840.114 350.1.13.10 4.2.7.2.686 [id number] [facility] 2020-06-13 00:00:00 2020-06-13 00:00:00 Telephone Manav De La Torre [facility] 1.2.840.114 350.1.13.10 4.2.7.2.686 [id number] [facility] 2020-06-08 12:12:18 2020-06-08 12:27:18 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 Sales Representative Visit Pob, Adc Lab Main Manav De La Torre [facility] 1.2.840.114 350.1.13.10 4.2.7.2.686 [id number] [facility] 2020-06-08 11:11:00 2020-06-08 11:56:42 Office Visit Manav De La Torre [facility] 1.2.840.114 350.1.13.10 4.2.7.2.686 [id number] [facility] 2020-06-08 11:30:00 2020-06-08 11:30:00 Outpatient R MANAV DE LA TORRE [facility] [id number] [facility] 2020-06-08 00:00:00 2020-06-08 00:00:00 Orders Only Doctor Unassigned, [place] [facility] 1..840.114 350.1.13.10 4.2.7.2.686 [id number] [facility] 2020-05-15 11:00:00 2020-05-15 11:00:00 Outpatient R MANAV DE LA TORRE [facility] [id number] [facility] 2020-03-29 09:30:00 2020-03-29 09:30:00 Outpatient R MANAV DE LA TORRE [facility] [id number] [facility] 2019-09-15 08:53:59 2019-09-15 16:53:37 Telemedici ne Visit Manav De La TorreHDavid [facility] 1..840.114 350.1.13.10 4.2.7.2.686 [id number] [facility] 2019-09-15 09:00:00 2019-09-15 09:00:00 Outpatient R MANAV DE LA TORRE [facility] [id number] [facility] 2019-09-13 11:00:00 2019-09-13 11:00:00 Outpatient R MANAV DE LA TORRE [facility] [id number] [facility] 2019-03-08 00:00:00 2019-03-08 00:00:00 Refill Manav De La TorreHDavid [facility] 1..840.114 350.1.13.10 4.2.7.2.686 [id number] [facility] 2019-03-04 00:00:00 2019-03-04 00:00:00 Refill Manav De La TorreHDavid [facility] 1.2.840.114 350.1.13.10 4.2.7.2.686 [id number] [facility] 2019-02-23 08:26:01 2019-02-23 09:04:19 Office Visit Manav De La Torre [facility] 1.2.840.114 350.1.13.10 4.2.7.2.686 [id number] [facility] 2019-02-23 00:00:00 2019-02-23 00:00:00 Orders Only Doctor Unassigned, [place] [facility] 1.2.840.114 350.1.13.10 4.2.7.2.686 [id number] [facility] Results Test Description Test Time Test Comments Results Resul t Comments Source FL TIME OR (NON-REPORTABLE) 2023-11-26 20:32:05 These images do not require a Radiology diagnostic report. [facility] [place] TIME OR (NON-REPORTABLE) 2023-11-26 20:32:05 These images do not require a Radiology diagnostic report. [facility] (NA, K, CL, CO2, GLUCOSE, BUN, CREATININE, CA)2023-08-21 10:54:47* Test Item Value Reference Range Interpretation Comme nts NA (test code = 0691008804) 127 mmol/L 135-145 L K (test code = 6952345836) 4.4 mmol/L 3.5-5.0 CL (test code = 9333891360) 101 mmol/L 98-108 CO2 TOTAL (test code = 9029029777) 23 mmol/L 23-31 AGAP (test code = 6913012235) 3 2-16 BUN (test code = 1373590635) 9 mg/dL 7-23 GLUCOSE (test code = 7365745800) 109 mg/dL 70-110 CREATININE (test code = 2160-0) 0.72 mg/dL 0.50-1.04 CALCIUM (test code = 5273692191) 8.8 mg/dL 8.6-10.6 eGFR (test code = 73843-8) 90.6 mL/min/1.73m2 CKD-EPI eGFR (2020). Assuming creatinine has been stable day-to-day for at least three months, the eGFR indicates Category G1 (>= 90 mL/min/1.73 m2) Lab Interpretation (test code = 47080-8) [facility]normal [facility] 10:54:47* Test Item Value Reference Range Interpretation Comme nts MAGNESIUM (test code = 1118569081) 1.9 mg/dL 1.7-2.4 Lab Interpretation (test cod e = 20759-1) Normal [facility]24-[facility] 10:54:47* Test Item Value Reference Range Interpretation Comme nts PHOSPHORUS (test code = 0004609856) 3.5 mg/dL 2.5-5.0 Lab Interpretation (test cod e = 62917-1) Normal [facility] (NA, K, CL, CO2, GLUCOSE, BUN, CREATININE, CA)2023-08-21 10:54:47* Test Item Value Reference Range Interpretation Comme nts NA (test code = 3659853019) 127 mmol/L 135-145 L K (test code = 7373694443) 4.4 mmol/L 3.5-5.0 CL (test code = 9884267618) 101 mmol/L 98-108 CO2 TOTAL (test code = 1513108108) 23 mmol/L 23-31 AGAP (test code = 3444201535) 3 2-16 BUN (test code = 9918690207) 9 mg/dL 7-23 GLUCOSE (test code = 3428738087) 109 mg/dL 70-110 CREATININE (test code = 2160-0) 0.72 mg/dL 0.50-1.04 CALCIUM (test code = 5265626145) 8.8 mg/dL 8.6-10.6 eGFR (test code = 57675-9) 90.6 mL/min/1.73m2 CKD-EPI eGFR (2020). Assuming creatinine has been stable day-to-day for at least three months, the eGFR indicates Category G1 (>= 90 mL/min/1.73 m2) Lab Interpretation (test code = 11221-4) [facility]normal [facility] 10:54:47* Test Item Value Reference Range Interpretation Comme nts MAGNESIUM (test code = 3596599418) 1.9 mg/dL 1.7-2.4 Lab Interpretation (test cod e = 19559-0) Normal [facility] 10:54:47* Test Item Value Reference Range Interpretation Comme nts PHOSPHORUS (test code = 0003796572) 3.5 mg/dL 2.5-5.0 Lab Interpretation (test cod e = 77044-6) Normal [facility] Center[facility] without [id number] 10:51:44* Test Item Value Reference Range Interpretation Comme nts WBC (test code = 6690-2) 9.81 4.30-11.10 RBC (test code = 789-8) 3.32 3.93-5.25 L HGB (test code = 718-7) 9.7 g/dL 11.6-15.0 L HCT (test code = 4544-3) 28.8 % 35.7-45.2 L MCH (test code = 785-6) 29.2 pg 25.9-32.8 MCV (test code = 787-2) 86.7 fL 80.6-95.5 MCHC (test code = 786-4) 33.7 g/dL 31.6-35.1 PLT (test code = 777-3) 325 166-358 MPV (test code = 61434-3) 8.7 fL 9.5-12.9 L RDW-CV (test code = 788-0) 15.0 % 12.0-15.5 RDW-SD (test code = 74009-2) 47.1 fL 39.0-49.9 NRBC x10^3 (test code = 3225851572) See_Comment [Automated messa ge] The system which generated this result transmitted reference range: 10*3/?L. The reference range was not used to interpret this result as normal/abnormal. NRBC/100 WBC (test code = 2576490749) 0.0 0.0-10.0 IPF % (test code = 7880694080) Lab Interpretation (test code = 92306-9) Abnormal [facility] without [id number] 10:51:44* Test Item Value Reference Range Interpretation Comme nts WBC (test code = 6690-2) 9.81 4.30-11.10 RBC (test code = 789-8) 3.32 3.93-5.25 L HGB (test code = 718-7) 9.7 g/dL 11.6-15.0 L HCT (test code = 4544-3) 28.8 % 35.7-45.2 L MCH (test code = 785-6) 29.2 pg 25.9-32.8 MCV (test code = 787-2) 86.7 fL 80.6-95.5 MCHC (test code = 786-4) 33.7 g/dL 31.6-35.1 PLT (test code = 777-3) 325 166-358 MPV (test code = 07755-1) 8.7 fL 9.5-12.9 L RDW-CV (test code = 788-0) 15.0 % 12.0-15.5 RDW-SD (test code = 28069-5) 47.1 fL 39.0-49.9 NRBC x10^3 (test code = 4778914953) See_Comment [Automated [employer] ge] The system which generated this result transmitted reference range: 10*3/?L. The reference range was not used to interpret this result as normal/abnormal. NRBC/100 WBC (test code = 4680078194) 0.0 0.0-10.0 IPF % (test code = 6418749379) Lab Interpretation (test code = 57601-9) Abnormal [facility] Center[facility] (TTE)2023-08-21 00:40:39* Test Item Value Reference Range Interpretation Comme nts Height (test code = 8729214717) 65 in Weight (test code = 1849079970) 160 lbs Systolic BP (test code = 5634853539) 128 mmHg Diastolic BP (test code = 4677853151) 76 mmHg Heart Rate (test code = 5733871940) 85 bpm BSA (test code = 6551290014) 1.80 m2 LVOT diameter (test code = 2806819300) 2.28 cm LVOT area (test code = 7021785379) 4.10 cm2 Ao root diam (test code = 6244389896) 3.20 cm Aortic root (test code = 2060926291) 3.2 cm Ao root annulus (test code = 3565876643) 3.2 cm LA size (test code = 7434585952) 4.2 cm E wave decelartion time (test code = 3524350403) 0.22 s MV Peak E Earline (test code = 0127385043) 62.4 cm/s MV Peak A Earline (test code = 6426831340) 103.4 cm/s E/A ratio (test code = 3133616689) 0.60 ratio LAV(MOD-sp4) (test code = 9466808560) 55.10 mL LVOT stroke volume (test code = 2078318475) 104.60 cm3 LVOT peak earline (test code = 6633969866) 146.8 cm/s LVOT mn grad (test code = 5347654763) 4.6 mmHg AV LVOT peak gradient (test code = 0545551220) 8.6 mmHg LVOT peak VTI (test code = 4647917378) 25.6 cm LV V1 mean (test code = 1581353355) 101.00 cm/s Tapse (test code = 2304093408) 2.7 cm LA Volume Index (BP) (test code = 6663614915) 34.4 mL/m2 LA volume (BP) (test code = 1126656895) 62.0 mL LAV(MOD-sp2) (test code = 5212399963) 68.90 mL LVIDD (test code = 8384799014) 3.40 cm Left Ventricular End Diastolic Volume by Teichholz Method (test code = 4665646) 46.5 mL IVS (test code = 3619027970) 0.94 cm Interventricular Septum Diastolic Thickness by 2D (test code = 6521788) 0.94 cm LVPWD (test code = 9215461850) 0.90 cm PW (test code = 5542675330) 0.90 cm 0.6-1.1 EF(Teich) (test code = 0434141203) 72.00 % LVIDS (test code = 1754665493) 2.02 cm Left Ventricular End Systolic Volume by Teichholz Method (test code = 8310612) 13.0 mL FS (test code = 6931128199) 40 % EF - 2D (test code = 66653963) 72.00 % Ao peak earline (test code = 5109748477) 162.9 cm/s AV area peak earline (test code = 8055639217) 3.7 cm2 Ao max PG (test code = 3810736200) 10.70 mm[Hg] AV peak gradient (test code = 8264151641) 10.7 mmHg Radiology Study observation (narrative) (test code = 16963-4) JEFFREY (test code = JEFFREY) ?Left?Ventricle: Left ventricle size is normal. Normal wall thickness. Normal wall motion. Hyperdynamic systolic function with a visually estimated EF of greater than 65%. There is grade 1 diastolic dysfunction. ?Right?Ventricle: Right ventricle size is normal. Normal systolic function. Erik Cohn MD Left VentricleLeft ventricle size is normal. Normal wall thickness. Normal wall motion. Hyperdynamic systolic function with a visually estimated EF of greater than 65%. There is grade 1 diastolic dysfunction.Right VentricleRight ventricle size is normal. Normal systolic function.Left AtriumLeft atrium is mildly dilated.Right AtriumRight atrium size is normal.IVC/SVCIVC diameter is less than or equal to 21 mm and decreases greater than 50% during inspiration; therefore the estimated right atrial pressure is normal (~0-5 mmHg). SVC was not assessed.Mitral ValveModerate posterior mitral annular calcification. Trace transvalvular regurgitation. No stenosis.Tricuspid ValveTricuspid valve structure is normal. Trace transvalvular regurgitation. Insufficient tricuspid regurgitation jet to estimate RVSP . No stenosis.Aortic ValveNot well visualized. Aortic valve opens well. Trace transvalvular regurgitation. No hemodynamically significant .Pulmonic ValveNot well visualized.Ascending AortaNormal sized aortic root.PericardiumThe pericardium is normal. No pericardial effusion.Study DetailsStudy quality experienced technical difficulty. A complete echocardiogram was performed using 2D, color flow Doppler and spectral Doppler. The apical, parasternal and subcostal views were obtained. 5 mL of Lumason ultrasound enhancing agent used. [facility] 00:40:39* Test Item Value Reference Range Interpretation Comme nts Height (test code = 1583344353) 65 in Weight (test code = 3730339783) 160 lbs Systolic BP (test code = 2058244392) 128 mmHg Diastolic BP (test code = 4855529857) 76 mmHg Heart Rate (test code = 2580984674) 85 bpm BSA (test code = 8815928694) 1.80 m2 LVOT diameter (test code = 1082033190) 2.28 cm LVOT area (test code = 4631434825) 4.10 cm2 Ao root diam (test code = 9380254264) 3.20 cm Aortic root (test code = 1858378392) 3.2 cm Ao root annulus (test code = 5856728570) 3.2 cm LA size (test code = 4287499788) 4.2 cm E wave decelartion time (test code = 5760035702) 0.22 s MV Peak E Earline (test code = 1736480653) 62.4 cm/s MV Peak A Earline (test code = 8725265916) 103.4 cm/s E/A ratio (test code = 4544601691) 0.60 ratio LAV(MOD-sp4) (test code = 0763385009) 55.10 mL LVOT stroke volume (test code = 0688570853) 104.60 cm3 LVOT peak earline (test code = 6426571291) 146.8 cm/s LVOT mn grad (test code = 7624416113) 4.6 mmHg AV LVOT peak gradient (test code = 1891410696) 8.6 mmHg LVOT peak VTI (test code = 7525769482) 25.6 cm LV V1 mean (test code = 9599208204) 101.00 cm/s Tapse (test code = 9801250937) 2.7 cm LA Volume Index (BP) (test code = 2681852998) 34.4 mL/m2 LA volume (BP) (test code = 6553538769) 62.0 mL LAV(MOD-sp2) (test code = 2837067995) 68.90 mL LVIDD (test code = 8508127322) 3.40 cm Left Ventricular End Diastolic Volume by Teichholz Method (test code = 2339957) 46.5 mL IVS (test code = 8363598724) 0.94 cm Interventricular Septum Diastolic Thickness by 2D (test code = 5595048) 0.94 cm LVPWD (test code = 6494233477) 0.90 cm PW (test code = 3250615334) 0.90 cm 0.6-1.1 EF(Teich) (test code = 1024215132) 72.00 % LVIDS (test code = 4991419426) 2.02 cm Left Ventricular End Systolic Volume by Teichholz Method (test code = 9900969) 13.0 mL FS (test code = 2593267619) 40 % EF - 2D (test code = 21681085) 72.00 % Ao peak earline (test code = 3261637673) 162.9 cm/s AV area peak earline (test code = 5990869697) 3.7 cm2 Ao max PG (test code = 7919755423) 10.70 mm[Hg] AV peak gradient (test code = 7361993334) 10.7 mmHg Radiology Study observation (narrative) (test code = 54384-7) JEFFREY (test code = JEFFREY) ?Left?Ventricle: Left ventricle size is normal. Normal wall thickness. Normal wall motion. Hyperdynamic systolic function with a visually estimated EF of greater than 65%. There is grade 1 diastolic dysfunction. ?Right?Ventricle: Right ventricle size is normal. Normal systolic function. Erik Cohn MD Left VentricleLeft ventricle size is normal. Normal wall thickness. Normal wall motion. Hyperdynamic systolic function with a visually estimated EF of greater than 65%. There is grade 1 diastolic dysfunction.Right VentricleRight ventricle size is normal. Normal systolic function.Left AtriumLeft atrium is mildly dilated.Right AtriumRight atrium size is normal.IVC/SVCIVC diameter is less than or equal to 21 mm and decreases greater than 50% during inspiration; therefore the estimated right atrial pressure is normal (~0-5 mmHg). SVC was not assessed.Mitral ValveModerate posterior mitral annular calcification. Trace transvalvular regurgitation. No stenosis.Tricuspid ValveTricuspid valve structure is normal. Trace transvalvular regurgitation. Insufficient tricuspid regurgitation jet to estimate RVSP . No stenosis.Aortic ValveNot well visualized. Aortic valve opens well. Trace transvalvular regurgitation. No hemodynamically significant .Pulmonic ValveNot well visualized.Ascending AortaNormal sized aortic root.PericardiumThe pericardium is normal. No pericardial effusion.Study DetailsStudy quality experienced technical difficulty. A complete echocardiogram was performed using 2D, color flow Doppler and spectral Doppler. The apical, parasternal and subcostal views were obtained. 5 mL of Lumason ultrasound enhancing agent used. [facility] TIME OR (NON-REPORTABLE)2023-08-20 20:34:11 These images do not require a Radiology diagnostic report.[facility] TIME OR (NON-REPORTABLE)2023-08-20 20:34:11These images do not require a Radiology diagnostic report.[facility] ACT High [id number] 17:58:58* Test Item Value Reference Range Interpretation Comme nts ACTHR (test code = 8916724034) 260 96-152 H Lab Interpretation (test cod e = 67347-7) Abnormal [facility] ACT High [id number] 17:58:58* Test Item Value Reference Range Interpretation Comme nts ACTHR (test code = 6419650782) 260 96-152 H Lab Interpretation (test cod e = 83946-6) Abnormal [facility] ANGIOGRAM ABDOMEN/[id number] 16:07:48 CT ANGIOGRAM ABDOMEN/PELVIS, CT ANGIOGRAM LOWER EXTREMITY BILATERAL WCONTRAST 08/19/2023 10:47 PM HISTORY: Aortoiliac arterial disease COMPARISON: None. TECHNIQUE: Axial images of the abdomen, pelvis and lower extremity runoffwere acquired before and after administration of intravenous contrast.Coronal and sagittal reconstructions were also created. FINDINGS:Vascular:History circumferential calcification of abdominal aorta without criticalstenoses or aneurysm.Right common iliac artery: Moderate to severe calcification. Moderatestenoses at the distal segment.Right internal iliac artery: Moderate multifocal calcified plaque with mildto moderate multifocal stenosis.A right external iliac artery: Mild to moderate mixed plaques. No criticalstenosis. Left common iliac artery: Mild multifocal stenosis with moderate stenosisdistally at the bifurcation.Left internal iliac artery: Moderate to severe stenosis at the origin withmultifocal mild stenoses in the reminder of the segment.Left external iliac artery: Noncalcified plaques with mild to moderateproximal stenosis (90922:96) calcified plaque with mild luminal stenosisdistally. Lower extremity: Right common femoral artery: Noncalcified plaques with mild luminalstenosis (511:79).Right superficial femoral artery: Completely occluded from the origin tothe level of pre-existing distal stent. The distal superficial femoralartery stent is occluded.Popliteal artery: Occluded:Two-vessel runoff are noted, reconstituted by muscular branches, patentposterior tibial and peroneal arteries with small caliber. The plantararteries patent.The anterior tibial artery and dorsalis pedis are occluded. Left common femoral artery: Mixed plaque with mild luminal stenosis.Left Deep femoral artery: Widely patent.Left Superficial femoral artery: Mixed plaque with mild to moderatestenosis proximally (511:110). Multifocal plaques with mild stenosis at theabductor canal.Popliteal artery: Mixed plaques with mild luminal stenosis.Two-vessel runoff with patent.Posterior tibial artery: OccludedAnterior tibial artery: Patent with multifocal calcified plaques.Peroneal artery: Patent There is poor opacification of plantar arch. The dorsalis pedis artery ispatent. Nonvascular: There is a 4.7 cm segment 7 hepatic mass with peripheral incomplete nodularenhancement suggestive of hemangioma. 1.4 cm and 1.7 cm left hepatic lobesimilar appearing lesions are al so noted. There are 2 other enhancingsegments 4 lesions measuring 1 cm and 1.5 cm (87298: 38). 1.1 cm indeterminate right adrenal nodule. Extensive colonic diverticulosis predominantly involving distal colon. Mild bladder wall thickening could be sequela of nondistended lumen. Degenerative disc andfacet arthropathy of spines. The other abdominal and pelvic structures are within normal limits.[facility] W [id number] 16:07:48CT ANGIOGRAM ABDOMEN/PELVIS, CT ANGIOGRAM LOWER EXTREMITY BILATERAL WCONTRAST 08/19/2023 10:47 PM HISTORY: Aortoiliac arterial disease COMPARISON: None. TECHNIQUE: Axial images of the abdomen, pelvis and lower extremity runoffwere acquired before and after administration of intravenous contrast.Coronal and sagittal reconstructions were also created. FINDINGS:Vascular:History circumferential calcification of abdominal aorta without criticalstenoses or aneurysm.Right common iliac artery: Moderate to severe calcification. Moderatestenoses at the distal segment.Right internal iliac artery: Moderate multifocal calcified plaque with mildto moderate multifocal stenosis.A right external iliac artery: Mild to moderate mixed plaques. No criticalstenosis. Left common iliac artery: Mild multifocal stenosis with moderate stenosisdistally at the bifurcation.Left internal iliac artery: Moderate to severe stenosis at the origin withmultifocal mild stenoses in the reminder of the segment.Left external iliac artery: Noncalcified plaques with mild to moderateproximal stenosis (00803:96) calcified plaque with mild luminal stenosisdistally. Lower extremity: Right common femoral artery: Noncalcified plaques with mild luminalstenosis (511:79).Right superficial femoral artery: Completely occluded from the origin tothe level of pre-existing distal stent. The distal superficial femoralartery stent is occluded.Popliteal artery: Occluded:Two-vessel runoff are noted, reconstituted by muscular branches, pa tentposterior tibial and peroneal arteries with small caliber. The plantararteries patent.The anterior tibial artery and dorsalis pedis are occluded. Left common femoral artery: Mixed plaque with mild luminal stenosis.Left Deep femoral artery: Widely patent.Left Superficial femoral artery: Mixed plaque with mild to moderatestenosis proximally (511:110). Multifocal plaques with mild stenosis at theabductor canal.Popliteal artery: Mixed plaques with mild luminal stenosis.Two-vessel runoff with patent.Posterior tibial artery: OccludedAnterior tibial artery: Patent with multifocal calcified plaques.Peroneal artery: Patent There is poor opacification of plantar arch. The dorsalis pedis artery ispatent. Nonvascular: There is a 4.7 cm segment 7 hepatic mass with peripheral incomplete nodularenhancement suggestive of hemangioma. 1.4 cm and 1.7 cm left hepatic lobesimilar appearing lesions are al so noted. There are 2 other enhancingsegments 4 lesions measuring 1 cm and 1.5 cm (87327: 38). 1.1 cm indeterminate right adrenal nodule. Extensive colonic diverticulosis predominantly involving distal colon. Mild bladder wall thickening could be sequela of nondistended lumen. Degenerative disc andfacet arthropathy of spines. The other abdominal and pelvic structures are within normal limits.[facility] 2023-08-20 16:07:48CT ANGIOGRAM ABDOMEN/PELVIS, CT ANGIOGRAM LOWER EXTREMITY BILATERAL WCONTRAST 08/19/2023 10:47 PM HISTORY: Aortoiliac arterial disease COMPARISON: None. TECHNIQUE: Axial images of the abdomen, pelvis and lower extremity runoffwere acquired before and after administration of intravenous contrast.Coronal and sagittal reconstructions were also created. FINDINGS:Vascular:History circumferential calcification of abdominal aorta without criticalstenoses or aneurysm.Right common iliac artery: Moderate to severe calcification. Moderatestenoses at the distal segment.Right internal iliac artery: Moderate multifocal calcified plaque with mildto moderate multifocal stenosis.A right external iliac artery: Mild to moderate mixed plaques. No criticalstenosis. Left common iliac artery: Mild multifocal stenosis with moderate stenosisdistally at the bifurcation.Left internal iliac artery: Moderate to severe stenosis at the origin withmultifocal mild stenoses in the reminder of the segment.Left external iliac artery: Noncalcified plaques with mild to moderateproximal stenosis (56031:96) calcified plaque with mild luminal stenosisdistally. Lower extremity: Right common femoral artery: Noncalcified plaques with mild luminalstenosis (511:79).Right superficial femoral artery: Completely occluded from the origin tothe level of pre-existing distal stent. The distal superficial femoralartery stent is occluded.Popliteal artery: Occluded:Two-vessel runoff are noted, reconstituted by muscular branches, pa tentposterior tibial and peroneal arteries with small caliber. The plantararteries patent.The anterior tibial artery and dorsalis pedis are occluded. Left common femoral artery: Mixed plaque with mild luminal stenosis.Left Deep femoral artery: Widely patent.Left Superficial femoral artery: Mixed plaque with mild to moderatestenosis proximally (511:110). Multifocal plaques with mild stenosis at theabductor canal.Popliteal artery: Mixed plaques with mild luminal stenosis.Two-vessel runoff with patent.Posterior tibial artery: OccludedAnterior tibial artery: Patent with multifocal calcified plaques.Peroneal artery: Patent There is poor opacification of plantar arch. The dorsalis pedis artery ispatent. Nonvascular: There is a 4.7 cm segment 7 hepatic mass with peripheral incomplete nodularenhancement suggestive of hemangioma. 1.4 cm and 1.7 cm left hepatic lobesimilar appearing lesions are al so noted. There are 2 other enhancingsegments 4 lesions measuring 1 cm and 1.5 cm (40433: 38). 1.1 cm indeterminate right adrenal nodule. Extensive colonic diverticulosis predominantly involving distal colon. Mild bladder wall thickening could be sequela of nondistended lumen. Degenerative disc andfacet arthropathy of spines. The other abdominal and pelvic structures are within normal limits.[facility] EXTREMITY BILATERAL W [id number] 16:07:48CT ANGIOGRAM ABDOMEN/PELVIS, CT ANGIOGRAM LOWER EXTREMITY BILATERAL WCONTRAST 08/19/2023 10:47 PM HISTORY: Aortoiliac arterial disease COMPARISON: None. TECHNIQUE: Axial images of the abdomen, pelvis and lower extremity runoffwere acquired before and after administration of intravenous contrast.Coronal and sagittal reconstructions were also created. FINDINGS:Vascular:History circumferential calcification of abdominal aorta without criticalstenoses or aneurysm.Right common iliac artery: Moderate to severe calcification. Moderatestenoses at the distal segment.Right internal iliac artery: Moderate multifocal calcified plaque with mildto moderate multifocal stenosis.A right external iliac artery: Mild to moderate mixed plaques. No criticalstenosis. Left common iliac artery: Mild multifocal stenosis with moderate stenosisdistally at the bifurcation.Left internal iliac artery: Moderate to severe stenosis at the origin withmultifocal mild stenoses in the reminder of the segment.Left external iliac artery: Noncalcified plaques with mild to moderateproximal stenosis (09303:96) calcified plaque with mild luminal stenosisdistally. Lower extremity: Right common femoral artery: Noncalcified plaques with mild luminalstenosis (511:79).Right superficial femoral artery: Completely occluded from the origin tothe level of pre-existing distal stent. The distal superficial femoralartery stent is occluded.Popliteal artery: Occluded:Two-vessel runoff are noted, reconstituted by muscular branches, pa tentposterior tibial and peroneal arteries with small caliber. The plantararteries patent.The anterior tibial artery and dorsalis pedis are occluded. Left common femoral artery: Mixed plaque with mild luminal stenosis.Left Deep femoral artery: Widely patent.Left Superficial femoral artery: Mixed plaque with mild to moderatestenosis proximally (511:110). Multifocal plaques with mild stenosis at theabductor canal.Popliteal artery: Mixed plaques with mild luminal stenosis.Two-vessel runoff with patent.Posterior tibial artery: OccludedAnterior tibial artery: Patent with multifocal calcified plaques.Peroneal artery: Patent There is poor opacification of plantar arch. The dorsalis pedis artery ispatent. Nonvascular: There is a 4.7 cm segment 7 hepatic mass with peripheral incomplete nodularenhancement suggestive of hemangioma. 1.4 cm and 1.7 cm left hepatic lobesimilar appearing lesions are al so noted. There are 2 other enhancingsegments 4 lesions measuring 1 cm and 1.5 cm (09939: 38). 1.1 cm indeterminate right adrenal nodule. Extensive colonic diverticulosis predominantly involving distal colon. Mild bladder wall thickening could be sequela of nondistended lumen. Degenerative disc andfacet arthropathy of spines. The other abdominal and pelvic structures are within normal limits.[facility] CenterProth[facility] (PT) / INR 2023-08-19 22:31:49* Test Item Value Reference Range Interpretation Comme [facility] PROTIME PATIENT (test code = 5964-2) 24.1 10.1-12.6 H INR (test code = 6301-6) 2.1 Normal INR <1.1; Warfarin Therapeutic range 2.0 to 3.0 or 2.5 to 3.5, depending upon the indications. Lab Interpretation (test code = 98299-5) Abnormal [facility] CenteraPTT2024-02-21 22:31:49* Test Item Value Reference Range Interpretation Comme [facility] APTT Patient (test code = 3173-2) 44 26-36 H JEFFREY (test code = JEFFREY) The [facility] patient population mean normal value for aPTT is 30 seconds. Lab Interpretation (test code = 35721-4) Abnormal [facility] CenterPro[facility] (PT[facility] / [id number] 22:31:49 * Test Item Value Reference Range Interpretation Comme [facility] PROTIME PATIENT (test code = 5964-2) 24.1 10.1-12.6 H INR (test code = 6301-6) 2.1 Normal INR <1.1; Warfarin Therapeutic range 2.0 to 3.0 or 2.5 to 3.5, depending upon the indications. Lab Interpretation (test code = 97244-8) Abnormal [facility]eraPTT2024-02-21 22:31:49* Test Item Value Reference Range Interpretation Comme [facility] APTT Patient (test code = 3173-2) 44 26-36 H JEFFREY (test code = JEFFREY) The [facility] patient population mean normal value for aPTT is 30 seconds. Lab Interpretation (test code = 83862-8) Abnormal [facility] CenterXR FOOT <3 VW [id number] 21:09:49HISTORY: ?Pain and swelling. FINDINGS: AP and lateral views of the right foot showed vertical andoblique radiolucent lines through the shaft portion of the terminal phalanxof the great toe, suspicious for hairline fractures. Diffuse osteopenia, degenerative arthritis of the intertarsal joints andfirst tarsometatarsal joint noted. A metallic anchor is seen in thecalcaneum, probably utilized for Achilles tendon repair. A prominent 9 mmheel spur noted. Deformity in the distal end of the proximal and middlephalanges of the fifth digit noted, likely secondary to remote surgery. CONCLUSIONS: Suspect nondisplaced hairline fractures in terminal phalanx ofright great toe. Please correlate this finding with clinical history andphysical examination.[facility] Center[facility]3 VW RIGHT 2023-08-19 21:09:49HISTORY: ?Pain and swelling. FINDINGS: AP and lateral views of the right foot showed vertical andoblique radiolucent lines through the shaft portion of the terminal phalanxof the great toe, suspicious for hairline fractures. Diffuse osteopenia, degenerative arthritis of the intertarsal joints andfirst tarsometatarsal joint noted. A metallic anchor is seen in thecalcaneum, probably utilized for Achilles tendon repair. A prominent 9 mmheel spur noted. Deformity in the distal end of the proximal and middlephalanges of the fifth digit noted, likely secondary to remote surgery. CONCLUSIONS: Suspect nondisplaced hairline fractures in terminal phalanx ofright great toe. Please correlate this finding with clinical history andphysical examination.[facility] CenterCOMP. METABOLIC PANEL ([id number])2023-08-19 20:59:12* Test Item Value Reference Range Interpretation Comme nts NA (test code = 8606511934) 122 mmol/L 135-145 L K (test code = 4072525069) 4.0 mmol/L 3.5-5.0 CL (test code = 5551278763) 92 mmol/L 98-108 L CO2 TOTAL (test code = 9079100824) 23 mmol/L 23-31 AGAP (test code = 1966248310) 7 2-16 BUN (test code = 6114890894) 4 mg/dL 7-23 L GLUCOSE (test code = 2368658913) 80 mg/dL 70-110 CREATININE (test code = 2160-0) 0.54 mg/dL 0.50-1.04 TOTAL BILI (test code = 9348527298) 0.7 mg/dL 0.1-1.1 CALCIUM (test code = 0449156053) 9.3 mg/dL 8.6-10.6 T PROTEIN (test code = 3837477320) 7.7 g/dL 6.3-8.2 ALBUMIN (test code = 1666786389) 3.7 g/dL 3.5-5.0 ALK PHOS (test code = 0476656273) 101 U/L 34-122 ALTv (test code = 1742-6) 13 U/L 5-35 AST(SGOT) (test code = 2884796184) 29 U/L 13-40 eGFR (test code = 68746-7) 99.8 mL/min/1.73m2 CKD-EPI eGFR (2020). Assuming creatinine has been stable day-to-day for at least three months, the eGFR indicates Category G1 (>= 90 mL/min/1.73 m2) Lab Interpretation (test code = 84151-9) Abnormal [facility] CenterCOMP[facility] MET[facility]OLIC PANEL ([id number])2023-08-19 20:59:12* Test Item Value Reference Range Interpretation Comme nts NA (test code = 2360527062) 122 mmol/L 135-145 L K (test code = 9861268063) 4.0 mmol/L 3.5-5.0 CL (test code = 7330735005) 92 mmol/L 98-108 L CO2 TOTAL (test code = 5501817029) 23 mmol/L 23-31 AGAP (test code = 6238171621) 7 2-16 BUN (test code = 9721222723) 4 mg/dL 7-23 L GLUCOSE (test code = 0137544439) 80 mg/dL 70-110 CREATININE (test code = 2160-0) 0.54 mg/dL 0.50-1.04 TOTAL BILI (test code = 5467266548) 0.7 mg/dL 0.1-1.1 CALCIUM (test code = 1310788772) 9.3 mg/dL 8.6-10.6 T PROTEIN (test code = 4064060718) 7.7 g/dL 6.3-8.2 ALBUMIN (test code = 3986822552) 3.7 g/dL 3.5-5.0 ALK PHOS (test code = 7348787782) 101 U/L 34-122 ALTv (test code = 1742-6) 13 U/L 5-35 AST(SGOT) (test code = 5625422165) 29 U/L 13-40 eGFR (test code = 11268-0) 99.8 mL/min/1.73m2 CKD-EPI eGFR (2020). Assuming creatinine has been stable day-to-day for at least three months, the eGFR indicates Category G1 (>= 90 mL/min/1.73 m2) Lab Interpretation (test code = 19671-9) Abnormal [facility] WITH [id number] 20:54:52* Test Item Value Reference Range Interpretation Comme nts WBC (test code = 6690-2) 5.57 4.30-11.10 RBC (test code = 789-8) 4.42 3.93-5.25 HGB (test code = 718-7) 12.8 g/dL 11.6-15.0 HCT (test code = 4544-3) 36.9 % 35.7-45.2 MCV (test code = 787-2) 83.5 fL 80.6-95.5 MCH (test code = 785-6) 29.0 pg 25.9-32.8 MCHC (test code = 786-4) 34.7 g/dL 31.6-35.1 RDW-SD (test code = 87732-8) 43.8 fL 39.0-49.9 RDW-CV (test code = 788-0) 14.5 % 12.0-15.5 PLT (test code = 777-3) 423 166-358 H MPV (test code = 05191-3) 8.7 fL 9.5-12.9 L NRBC/100 WBC (test code = 8516833965) 0.0 0.0-10.0 NRBC x10^3 (test code = 3456451448) See_Comment [Automated messa ge] The system which generated this result transmitted reference range: 10*3/?L. The reference range was not used to interpret this result as normal/abnormal. GRAN MAT (NEUT) % (test code = 770-8) 55.5 % IMM GRAN % (test code = 3009957412) 0.40 % LYMPH % (test code = 736-9) 28.0 % MONO % (test code = 5905-5) 12.0 % EOS % (test code = 713-8) 3.2 % BASO % (test code = 706-2) 0.9 % GRAN MAT x10^3(ANC) (test code = 2599496711) 3.09 10*3/uL 1.88-7.09 IMM GRAN x10^3 (test code = 4737363599) 0.00-0.06 LYMPH x10^3 (test code = 731-0) 1.56 10*3/uL 1.32-3.29 MONO x10^3 (test code = 742-7) 0.67 10*3/uL 0.33-0.92 EOS x10^3 (test code = 711-2) 0.18 10*3/uL 0.03-0.39 BASO x10^3 (test code = 704-7) 0.05 10*3/uL 0.01-0.07 Lab Interpretation (test code = 39648-2) [facility]normal [facility] CenterCB WITH [id number] 20:54:52* Test Item Value Reference Range Interpretation Comme nts WBC (test code = 6690-2) 5.57 4.30-11.10 RBC (test code = 789-8) 4.42 3.93-5.25 HGB (test code = 718-7) 12.8 g/dL 11.6-15.0 HCT (test code = 4544-3) 36.9 % 35.7-45.2 MCV (test code = 787-2) 83.5 fL 80.6-95.5 MCH (test code = 785-6) 29.0 pg 25.9-32.8 MCHC (test code = 786-4) 34.7 g/dL 31.6-35.1 RDW-SD (test code = 18731-9) 43.8 fL 39.0-49.9 RDW-CV (test code = 788-0) 14.5 % 12.0-15.5 PLT (test code = 777-3) 423 166-358 H MPV (test code = 27825-9) 8.7 fL 9.5-12.9 L NRBC/100 WBC (test code = 8340321126) 0.0 0.0-10.0 NRBC x10^3 (test code = 4919897667) See_Comment [Automated messa ge] The system which generated this result transmitted reference range: 10*3/?L. The reference range was not used to interpret this result as normal/abnormal. GRAN MAT (NEUT) % (test code = 770-8) 55.5 % IMM GRAN % (test code = 9017421422) 0.40 % LYMPH % (test code = 736-9) 28.0 % MONO % (test code = 5905-5) 12.0 % EOS % (test code = 713-8) 3.2 % BASO % (test code = 706-2) 0.9 % GRAN MAT x10^3(ANC) (test code = 6131999680) 3.09 10*3/uL 1.88-7.09 IMM GRAN x10^3 (test code = 6162998450) 0.00-0.06 LYMPH x10^3 (test code = 731-0) 1.56 10*3/uL 1.32-3.29 MONO x10^3 (test code = 742-7) 0.67 10*3/uL 0.33-0.92 EOS x10^3 (test code = 711-2) 0.18 10*3/uL 0.03-0.39 BASO x10^3 (test code = 704-7) 0.05 10*3/uL 0.01-0.07 Lab Interpretation (test code = 64445-6) [facility]normal [facility] CenterL[facility] Acid Whole [id number] 20:30:05* Test Item Value Reference Range Interpretation Comme nts LACTIC ACID (test code = 8638474074) 1.82 mmol/L 0.50-2.20 Lab Interpretation (test cod e = 17686-7) Normal [facility] CenterLactic Acid Whole [id number] 20:30:05* Test Item Value Reference Range Interpretation Comme nts LACTIC ACID (test code = [id number]) 1.82 mmol/L 0.50-2.20 Lab Interpretation (test cod e = 38373-4) [facility] [id number] 04:54:35* Test Item Value Reference Range Interpretation Comme nts GLUCOSE (test code = 2217) 83 MG/DL 70-99 BUN (test code = 2208) 7 MG/DL 8-23 L CREATININE (test code = 2214) 0.66 MG/DL 0.60-1.30 eGFR (2020 CKD-EPI) (test code = 21644) 95 ML/MIN/1.73 >60 CALC BUN/CREAT (test code = 2235) 11 RATIO 6-28 SODIUM (test code = 2231) 126 MEQ/L 133-146 L POTASSIUM (test code = 2228) 4.7 MEQ/L 3.5-5.4 CHLORIDE (test code = 2215) 89 MEQ/L 95-107 L RESULTS RECHECKE D AND VERIFIED CARBON DIOXIDE (test code = 2206) 23 MEQ/L 19-31 CALCIUM (test code = 2209) 10.0 MG/DL 8.5-10.5 PROTEIN, TOTAL (test code = 2229) 7.1 G/DL 6.1-8.3 ALBUMIN (test code = 2201) 4.1 G/DL 3.5-5.2 CALC GLOBULIN (test code = 2240) 3.0 G/DL 1.9-3.7 CALC A/G RATIO (test code = 2234) 1.4 RATIO 1.0-2.6 BILIRUBIN, TOTAL (test code = 2207) 0.6 MG/DL <=1.2 ALKALINE PHOSPHATASE (test code = 2204) 117 U/L 40-142 AST (test code = 2218) 19 U/L 9-40 ALT (test code = 2219) 13 U/L 5-40 UNLESS OTHERWISE INDICATED, ALL TESTING PERFORMED AT [facility] [address] [place] [address] APPLICATIONS SUPPORT LEAD: CHARLEY GOMES M.D. CLIA NUMBER [id number] [place]. [id number] COMPREHENSIVE METABOLIC [id number] 00:00:00* Test Item Value Reference Range Interpretation Comme nts GLUCOSE (test code = 2217) 83 MG/DL BUN (test code = 2208) 7 MG/DL CREATININE (test code = 2214) 0.66 MG/DL eGFR (2020 CKD-EPI) (test co de = 85590) 95 ML/MIN/1.73 CALC BUN/CREAT (test code = 2235) 11 RATIO SODIUM (test code = 2231) 126 MEQ/L POTASSIUM (test code = 2228) 4.7 MEQ/L CHLORIDE (test code = 2215) 89 MEQ/L CARBON DIOXIDE (test code = 2206) 23 MEQ/L CALCIUM (test code = 2209) 10.0 MG/DL PROTEIN, TOTAL (test code = 2229) 7.1 G/DL ALBUMIN (test code = 2201) 4.1 G/DL CALC GLOBULIN (test code = 2240) 3.0 G/DL CALC A/G RATIO (test code = 2234) 1.4 RATIO BILIRUBIN, TOTAL (test code = 2207) 0.6 MG/DL ALKALINE PHOSPHATASE (test code = 2204) 117 U/L AST (test code = 2218) 19 U/L ALT (test code = 2219) 13 U/L Herman BanksCOMPREHENSIVE METABOLIC [id number] 00:00:00* Test Item Value Reference Range Interpretation Comme nts GLUCOSE (test code = 2217) 83 MG/DL BUN (test code = 2208) 7 MG/DL CREATININE (test code = 2214) 0.66 MG/DL eGFR (2020 CKD-EPI) (test co de = 64513) 95 ML/MIN/1.73 CALC BUN/CREAT (test code = 2235) 11 RATIO SODIUM (test code = 2231) 126 MEQ/L POTASSIUM (test code = 2228) 4.7 MEQ/L CHLORIDE (test code = 2215) 89 MEQ/L CARBON DIOXIDE (test code = 2206) 23 MEQ/L CALCIUM (test code = 2209) 10.0 MG/DL PROTEIN, TOTAL (test code = 2229) 7.1 G/DL ALBUMIN (test code = 2201) 4.1 G/DL CALC GLOBULIN (test code = 2240) 3.0 G/DL CALC A/G RATIO (test code = 2234) 1.4 RATIO BILIRUBIN, TOTAL (test code = 2207) 0.6 MG/DL ALKALINE PHOSPHATASE (test code = 2204) 117 U/L AST (test code = 2218) 19 U/L ALT (test code = 2219) 13 U/L SATHISH Boykin [id number] 06:16:17* Test Item Value Reference Range Interpretation Comme nts TSH, THIRD GENERATION (test code = 2821) 2.350 UIU/ML 0.400-4.100 UNLESS OTHERWISE INDICATED, ALL TESTING PERFORMED AT [facility] [address] [place] [address] APPLICATIONS SUPPORT LEAD: CHARLEY GOMES M.D. CLIA NUMBER [id number] [place]. [id number] TSH, THIRD [id number] 00:00:00* Test Item Value Reference Range Interpretation Comme nts TSH, THIRD GENERATION (test code = 2821) 2.350 UIU/ML SATHISH Boykin [id number] 00:00:00* Test Item Value Reference Range Interpretation Comme nts TSH, THIRD GENERATION (test code = 2821) 2.350 UIU/ML SATHISH Boykin [id number] 00:00:00* Test Item Value Reference Range Interpretation Comme nts TSH, THIRD GENERATION (test code = 2821) 2.460 UIU/ML SATHISH Boykin [id number] 00:00:00* Test Item Value Reference Range Interpretation Comme nts TSH, THIRD GENERATION (test code = 2821) 2.460 UIU/ML SATHISH Boykin [id number] 04:26:15* Test Item Value Reference Range Interpretation Comme nts TSH, THIRD GENERATION (test code = 2821) 0.721 UIU/ML 0.400-4.100 FREE T4 (THYROXINE)2023-02-04 04:26:15* Test Item Value Reference Range Interpretation Comme nts FREE T4 (THYROXINE) (test code = 2823) 1.11 NG/DL 0.80-1.90 UNLESS OTHERWISE INDICATED, ALL TESTING PERFORMED AT [facility] [address] [place] [address] APPLICATIONS SUPPORT LEAD: CHARLEY GOMES M.D. CLIA NUMBER [id number] [place]. [id number] FREE T4 (THYROXINE)2023-02-04 00:00:00* Test Item Value Reference Range Interpretation Comme nts FREE T4 (THYROXINE) (test co de = 2823) 1.11 NG/DL Herman Marti, THIRD [id number] 00:00:00* Test Item Value Reference Range Interpretation Comme nts TSH, THIRD GENERATION (test code = 2821) 0.721 UIU/ML Herman BanksFREE T4 (THYROXINE)2023-02-04 00:00:00* Test Item Value Reference Range Interpretation Comme nts FREE T4 (THYROXINE) (test co de = 2823) 1.11 NG/DL Herman Marti, THIRD [id number] 00:00:00* Test Item Value Reference Range Interpretation Comme nts TSH, THIRD GENERATION (test code = 2821) 0.721 UIU/ML Herman Escobedo AustinTHYROXINE, FREE, [id number] 09:22:02* Test Item Value Reference Range Interpretation Comme nts THYROXINE, FREE, DIAL (test code = 79313) 2.4 ng/dL 1.1-2.4 FREE T4 BY EQUIL DIALYSIS-TMS: REFERENCE INTERVALS 1ST TRIMESTER ...... 0.7 - 2.0 ng/dL 2ND TRIMESTER ...... 0.7 - 2.1 ng/dL 3RD TRIMESTER ...... 0.5 - 1.6 ng/dLINTERPRETIVE INFORMATION: FT4 ED-TMSThis test was developed and its performance characteristics determined by [employer]. It has not been cleared or approved by the [place] Food and Drug Administration. This test was performed in a CLIA certified laboratory and is intended for clinical purposes. TESTING PERFORMED AT [facility], [address] [address] [place]. [id number] CLIA NO. [id number] THYROXINE, FREE, [id number] 00:00:00* Test Item Value Reference Range Interpretation Comme nts THYROXINE, FREE, DIAL (test code = 73372) 2.4 ng/dL Herman Gregg AustinTHYROXINE, FREE, [id number] 00:00:00* Test Item Value Reference Range Interpretation Comme nts THYROXINE, FREE, DIAL (test code = 89533) 2.4 ng/dL Herman Escobedo AustinTHYROTROPIN RECEPTOR [id number] 12:59:32* Test Item Value Reference Range Interpretation Comme nts TRAB (test code = 13264) 1.36 IU/L <1.75 TESTING PERFORME D AT [facility] [address] [place] [address], [address], [place] [address] CLIA NO: [id number] THYROTROPIN RECEPTOR [id number] 00:00:00* Test Item Value Reference Range Interpretation Comme nts TRAB (test code = 56956) 1.36 IU/L Herman Escobedo AustinTHYROTROPIN RECEPTOR [id number] 00:00:00* Test Item Value Reference Range Interpretation Comme nts TRAB (test code = 28148) 1.36 IU/L Herman Escobedo AustinTHYROID PEROXIDASE [id number] 03:59:09* Test Item Value Reference Range Interpretation Comme nts THYROID PEROXIDASE AB (test code = 87081) 11 IU/ML See_Comment EFFECTIVE 2022, NEW REFERENCE RANGE CHANGE ASSOCIATEDWITH CHANGE IN METHODOLOGY.NEW METHODOLOGY IS DAGMAR ELECTROCHEMILUMINESCENCE IMMUNOASSAY(ECLIA). [Automated message] The system which generated this result transmitted reference range: <=34. The reference range was not used to interpret this result as normal/abnormal. FREE T4 (THYROXINE)2022-11-05 03:58:41* Test Item Value Reference Range Interpretation Comme nts FREE T4 (THYROXINE) (test code = 2823) 1.23 NG/DL 0.80-1.90 UNLESS OTHERWISE INDICATED, ALL TESTING PERFORMED AT [facility] [address] [place] [address] APPLICATIONS SUPPORT LEAD: CHARLEY GOMES M.D. CLIA NUMBER [id number] [facility] [place]. [id number] FREE [id number] 03:58:41* Test Item Value Reference Range Interpretation Comme nts FREE T3 (test code = 4273) 3.2 PG/ML 2.2-4.2 TSH REFLEX TO FREE [id number] 03:58:41* Test Item Value Reference Range Interpretation Comme nts TSH REFLEX TO FREE T4 (test code = 2834) 0.377 UIU/ML 0.400-4.100 L TSH REFLEX TO FREE [id number] 00:00:00* Test Item Value Reference Range Interpretation Comme nts TSH REFLEX TO FREE T4 (test code = 2834) 0.377 UIU/ML Herman Escobedo AustinTHYROID PEROXIDASE [id number] 00:00:00* Test Item Value Reference Range Interpretation Comme nts THYROID PEROXIDASE AB (test code = 91996) 11 IU/ML Herman Escobedo AustinFREE T4 (THYROXINE) [REFLEX]2022-11-05 00:00:00* Test Item Value Reference Range Interpretation Comme nts FREE T4 (THYROXINE) (test co de = 2823) 1.23 NG/DL Herman BanksFREE [id number] 00:00:00* Test Item Value Reference Range Interpretation Comme nts FREE T3 (test code = 4273) 3.2 PG/ML Herman BanksTSH REFLEX TO FREE [id number] 00:00:00* Test Item Value Reference Range Interpretation Comme nts TSH REFLEX TO FREE T4 (test code = 2834) 0.377 UIU/ML Herman BanksTHYROID PEROXIDASE [id number] 00:00:00* Test Item Value Reference Range Interpretation Comme nts THYROID PEROXIDASE AB (test code = 70863) 11 IU/ML Herman BanksFREE T4 (THYROXINE) [REFLEX]2022-11-05 00:00:00* Test Item Value Reference Range Interpretation Comme nts FREE T4 (THYROXINE) (test co de = 2823) 1.23 NG/DL Herman DickEE 00:00:00* Test Item Value Reference Range Interpretation Comme nts FREE T3 (test code = 4273) 3.2 PG/ML Herman BanksOCCULT BLD,FECAL,IMMUNOASSAY [id number] 11:10:46* Test Item Value Reference Range Interpretation Comme nts OCCULT BLD, FECAL (test code = 57700) NEGATIVE NEGATIVE [facility] has important pathology staff changes effective 08/27/2022. New pathology staff will provide uninterrupted, excellent patient care and clinical consultation. See URL: [email or web address]. UNLESS OTHERWISE INDICATED, ALL TESTING PERFORMED AT [facility] [address] [place] [address] APPLICATIONS SUPPORT LEAD: CHARLEY GOMES M.D. CLIA NUMBER [id number] [facility] [place]. [id number] OCCULT BLD,FECAL,IMMUNOASSAY [id number] 00:00:00* Test Item Value Reference Range Interpretation Comme nts OCCULT BLD, FECAL (test code = 11868) NEGATIVE Herman BanksOCCULT BLD,FECAL,IMMUNOASSAY [id number] 00:00:00* Test Item Value Reference Range Interpretation Comme nts OCCULT BLD, FECAL (test code = 87025) NEGATIVE Herman BanksHEPATITIS PANEL, [id number] 04:58:56* Test Item Value Reference Range Interpretation Comme nts HEPATITIS A IgM (test code = 03346) NON-REACTIVE NON-REACTIVE HEPATITIS B CORE IgM (test code = 4644) NON-REACTIVE NON-REACTIVE HEPATITIS B SURF AG (test code = 2739) NON-REACTIVE NON-REACTIVE HEPATITIS C ANTIBODY (test code = 4675) NON-REACTIVE NON-REACTIVE INTERPRETATION HEPATITIS A: (test code = 2552) (NOTE) Hepatitis A serology shows no evidence of acute hepatitis A. INTERPRETATION HEPATITIS B: (test code = 65011) (NOTE) Hepatitis B serology shows no evidence of acute hepatitis B andno indication of exposure to hepatitis B virus in the previous sherita eight months. INTERPRETATION HEPATITIS C: (test code = 70248) (NOTE) Hepatitis C serology shows no evidence of exposure to hepatitisC virus at this time. It can take up to 12 months after exposure tothe hepatitis C virus for antibodies to become detectable in the blood in certain patients. TSH, THIRD [id number] 04:26:31* Test Item Value Reference Range Interpretation Comme nts TSH, THIRD GENERATION (test code = 2821) 0.378 UIU/ML 0.400-4.100 L [facility] has impo rtant pathology staff changes effective 08/27/2022. New pathology staff will provide uninterrupted, excellent patient care and clinical consultation. See URL: [email or web address]. UNLESS OTHERWISE INDICATED, ALL TESTING PERFORMED AT [facility] [address] [place] [address] APPLICATIONS SUPPORT LEAD: CHARLEY GOMES M.D. CLIA NUMBER [id number] [place]. [id number] COMPREHENSIVE METABOLIC [id number] 04:23:07* Test Item Value Reference Range Interpretation Comme nts GLUCOSE (test code = 2217) 104 MG/DL 70-99 H BUN (test code = 2207) 8 MG/DL 8-23 CREATININE (test code = 2213) 0.65 MG/DL 0.60-1.30 eGFR (2020 CKD-EPI) (test code = ) 96 ML/MIN/1.73 >60 CALC BUN/CREAT (test code = 2234) 12 RATIO 6-28 SODIUM (test code = 2230) 128 MEQ/L 133-146 L POTASSIUM (test code = 2227) 4.3 MEQ/L 3.5-5.4 CHLORIDE (test code = 2214) 90 MEQ/L 95-107 L CARBON DIOXIDE (test code = 2205) 28 MEQ/L 19-31 CALCIUM (test code = 2208) 10.4 MG/DL 8.5-10.5 PROTEIN, TOTAL (test code = 2228) 7.3 G/DL 6.1-8.3 ALBUMIN (test code = 2200) 4.1 G/DL 3.5-5.2 CALC GLOBULIN (test code = 2239) 3.2 G/DL 1.9-3.7 CALC A/G RATIO (test code = 2233) 1.3 RATIO 1.0-2.6 BILIRUBIN, TOTAL (test code = 2206) 0.6 MG/DL See_Comment [Automated me ssage] The system which generated this result transmitted reference range: <=1.2. The reference range was not used to interpret this result as normal/abnormal. ALKALINE PHOSPHATASE (test code = 2203) 134 U/L 40-142 AST (test code = 2217) 22 U/L 9-40 ALT (test code = 2218) 13 U/L 5-40 LIPID [id number] 04:23:07* Test Item Value Reference Range Interpretation Comme nts CHOLESTEROL (test code = 2210) 205 MG/DL <200 H TRIGLYCERIDES (test code = 2232) 70 MG/DL <150 HDL CHOLESTEROL (test code = 2220) 59 MG/DL >39 CALC LDL CHOL (test code = 2236) 130 MG/DL <100 H NOTE: CALCULATED LDL IS BASED ON GREGORIA-LEARY METHOD WHICHINCLUDES ADJUSTABLE TRIGLYCERIDE:VLDL CHOLESTEROL RATIO.THIS FACTOR VARIES BY MEASURED TRIGLYCERIDE AND NON-HDLCHOLESTEROL CONCENTRATIONS WITH INCREASED CALCULATED LDL SEENIN HIGHER TRIGLYCERIDE OR LOWER NON-HDL SPECIMENS. FOR MOREINFORMATION, SEE CLIENT ANNOUNCEMENT AT [email or web address] RATIO LDL/HDL (test code = 2238) 2.20 RATIO <3.22 HEMOGLOBIN [id number] 03:29:45* Test Item Value Reference Range Interpretation Comme nts HEMOGLOBIN A1c (test code = 00860) 5.1 % 4.2-5.6 CBC W/AUTO DIFF WITH [id number] 02:25:42* Test Item Value Reference Range Interpretation [...] 0.00-0.10 ABS NUCLEATED RBCS (test code = 97181) 0.00 K/UL 0.00-0.11 CBC W/AUTO [id number] 00:00:00* Test Item Value Reference Range Interpretation Comme nts WBC (test code = 1001) 4.3 K/UL RBC (test code = 1002) 5.33 M/UL HEMOGLOBIN (test code = 1003) 15.1 G/DL HEMATOCRIT (test code = 1004) 46.0 % MCV (test code = 1005) 86.3 fL MCH (test code = 1006) 28.3 PG MCHC (test code = 1007) 32.8 G/DL RDW (test code = 1038) 13.5 % NEUTROPHILS (test code = 1008) 39.1 % LYMPHOCYTES (test code = 1010) 44.2 % MONOCYTES (test code = 1011) 11.3 % EOSINOPHILS (test code = 1012) 3.3 % BASOPHILS (test code = 1013) 1.6 % IMMATURE GRANULOCYTES (test code = 1036) 0.5 % NUCLEATED RBCS (test code = 1065) 0.0 /100WBC'S PLATELET COUNT (test code = 1015) 290 K/UL ABSOLUTE NEUTROPHILS (test c ode = 1066) 1.66 K/UL ABSOLUTE LYMPHOCYTES (test c ode = 1067) 1.88 K/UL ABSOLUTE MONOCYTES (test cod e = 1068) 0.48 K/UL ABSOLUTE EOSINOPHILS (test c ode = 1040) 0.14 K/UL ABSOLUTE BASOPHILS (test cod e = 1069) 0.07 K/UL ABS IMMATURE GRANULOCYTES (t est code = 1020) 0.02 K/UL ABS NUCLEATED RBCS (test cod e = 33372) 0.00 K/UL Herman BanksCOMPREHENSIVE METABOLIC [id number] 00:00:00* Test Item Value Reference Range Interpretation Comme nts GLUCOSE (test code = 2217) 104 MG/DL BUN (test code = 2208) 8 MG/DL CREATININE (test code = 2214) 0.65 MG/DL eGFR (2020 CKD-EPI) (test co de = 71282) 96 ML/MIN/1.73 CALC BUN/CREAT (test code = 2235) 12 RATIO SODIUM (test code = 2231) 128 MEQ/L POTASSIUM (test code = 2228) 4.3 MEQ/L CHLORIDE (test code = 2215) 90 MEQ/L CARBON DIOXIDE (test code = 2206) 28 MEQ/L CALCIUM (test code = 2209) 10.4 MG/DL PROTEIN, TOTAL (test code = 2229) 7.3 G/DL ALBUMIN (test code = 2201) 4.1 G/DL CALC GLOBULIN (test code = 2240) 3.2 G/DL CALC A/G RATIO (test code = 2234) 1.3 RATIO BILIRUBIN, TOTAL (test code = 2207) 0.6 MG/DL ALKALINE PHOSPHATASE (test code = 2204) 134 U/L AST (test code = 2218) 22 U/L ALT (test code = 2219) 13 U/L Herman BanksLIPID [id number] 00:00:00* Test Item Value Reference Range Interpretation Comme nts CHOLESTEROL (test code = 2210) 205 MG/DL TRIGLYCERIDES (test code = 2232) 70 MG/DL HDL CHOLESTEROL (test code = 2220) 59 MG/DL CALC LDL CHOL (test code = 2237) 130 MG/DL RISK RATIO LDL/HDL (test cod e = 2238) 2.20 RATIO Herman BanksACUTE HEPATITIS [id number] 00:00:00* Test Item Value Reference Range Interpretation Comme nts HEPATITIS A IgM (test code = 44541) NON-REACTIVE HEPATITIS B CORE IgM (test c ode = 4644) NON-REACTIVE HEPATITIS B SURF AG (test co de = 2739) NON-REACTIVE HEPATITIS C ANTIBODY (test c ode = 4675) NON-REACTIVE INTERPRETATION HEPATITIS A: (test code = 2552) (NOTE) INTERPRETATION HEPATITIS B: (test code = 60724) (NOTE) INTERPRETATION HEPATITIS C: (test code = 60281) (NOTE) Herman BanksTSH, THIRD [id number] 00:00:00* Test Item Value Reference Range Interpretation Comme nts TSH, THIRD GENERATION (test code = 2821) 0.378 UIU/ML Herman BanksHEMOGLOBIN [id number] 00:00:00* Test Item Value Reference Range Interpretation Comme nts HEMOGLOBIN A1c (test code = 13930) 5.1 % Herman BanksCBC W/AUTO [id number] 00:00:00* Test Item Value Reference Range Interpretation Comme nts WBC (test code = 1001) 4.3 K/UL RBC (test code = 1002) 5.33 M/UL HEMOGLOBIN (test code = 1003) 15.1 G/DL HEMATOCRIT (test code = 1004) 46.0 % MCV (test code = 1005) 86.3 fL MCH (test code = 1006) 28.3 PG MCHC (test code = 1007) 32.8 G/DL RDW (test code = 1038) 13.5 % NEUTROPHILS (test code = 1008) 39.1 % LYMPHOCYTES (test code = 1010) 44.2 % MONOCYTES (test code = 1011) 11.3 % EOSINOPHILS (test code = 1012) 3.3 % BASOPHILS (test code = 1013) 1.6 % IMMATURE GRANULOCYTES (test code = 1036) 0.5 % NUCLEATED RBCS (test code = 1065) 0.0 /100WBC'S PLATELET COUNT (test code = 1015) 290 K/UL ABSOLUTE NEUTROPHILS (test c ode = 1066) 1.66 K/UL ABSOLUTE LYMPHOCYTES (test c ode = 1067) 1.88 K/UL ABSOLUTE MONOCYTES (test cod e = 1068) 0.48 K/UL ABSOLUTE EOSINOPHILS (test c ode = 1040) 0.14 K/UL ABSOLUTE BASOPHILS (test cod e = 1069) 0.07 K/UL ABS IMMATURE GRANULOCYTES (t est code = 1020) 0.02 K/UL ABS NUCLEATED RBCS (test cod e = 81081) 0.00 K/UL Herman BanksCOMPREHENSIVE METABOLIC [id number] 00:00:00* Test Item Value Reference Range Interpretation Comme nts GLUCOSE (test code = 2217) 104 MG/DL BUN (test code = 2208) 8 MG/DL CREATININE (test code = 2214) 0.65 MG/DL eGFR (2020 CKD-EPI) (test co de = 13726) 96 ML/MIN/1.73 CALC BUN/CREAT (test code = 2235) 12 RATIO SODIUM (test code = 2231) 128 MEQ/L POTASSIUM (test code = 2228) 4.3 MEQ/L CHLORIDE (test code = 2215) 90 MEQ/L CARBON DIOXIDE (test code = 2206) 28 MEQ/L CALCIUM (test code = 2209) 10.4 MG/DL PROTEIN, TOTAL (test code = 2229) 7.3 G/DL ALBUMIN (test code = 2201) 4.1 G/DL CALC GLOBULIN (test code = 2240) 3.2 G/DL CALC A/G RATIO (test code = 2234) 1.3 RATIO BILIRUBIN, TOTAL (test code = 2207) 0.6 MG/DL ALKALINE PHOSPHATASE (test code = 2204) 134 U/L AST (test code = 2218) 22 U/L ALT (test code = 2219) 13 U/L Hermna BanksLIPID [id number] 00:00:00* Test Item Value Reference Range Interpretation Comme nts CHOLESTEROL (test code = 2210) 205 MG/DL TRIGLYCERIDES (test code = 2232) 70 MG/DL HDL CHOLESTEROL (test code = 2220) 59 MG/DL CALC LDL CHOL (test code = 2237) 130 MG/DL RISK RATIO LDL/HDL (test cod e = 2238) 2.20 RATIO Herman BanksACUTE HEPATITIS [id number] 00:00:00* Test Item Value Reference Range Interpretation Comme nts HEPATITIS A IgM (test code = 80327) NON-REACTIVE HEPATITIS B CORE IgM (test c ode = 4644) NON-REACTIVE HEPATITIS B SURF AG (test co de = 2739) NON-REACTIVE HEPATITIS C ANTIBODY (test c ode = 4626) NON-REACTIVE INTERPRETATION HEPATITIS A: (test code = 2552) (NOTE) INTERPRETATION HEPATITIS B: (test code = 95376) (NOTE) INTERPRETATION HEPATITIS C: (test code = 26795) (NOTE) Herman BanksTSH, THIRD [id number] 00:00:00* Test Item Value Reference Range Interpretation Comme nts TSH, THIRD GENERATION (test code = 2821) 0.378 UIU/ML Herman BanksHEMOGLOBIN [id number] 00:00:00* Test Item Value Reference Range Interpretation Comme nts HEMOGLOBIN A1c (test code = 50875) 5.1 % Herman BanksSURGICAL PATHOLOGY [id number] 16:35:30* Test Item Value Reference Range Interpretation [...] Rice-brownNUMBER OF TISSUE PIECES: MultipleSUBMITTED IN CASSETTE(S): [id number]: FormalinCOMMENTS:Irregularly shaped tissue fragments with mucus and clotted blood. Filtered and entirely submitted. PATHOLOGIST: (test code = 8250) (NOTE) Laila Carter Specimens processed at [facility], [address] [place] [address], , CLIA: [id number] interpreted at [facility], [address] [place] [address], , CLIA: [id number] CPT: (test code = 8400) (NOTE) [address] UNLESS OTH ERWISE INDICATED, ALL TESTING PERFORMED [facility] [address] [place] [address] APPLICATIONS SUPPORT LEAD: ONELIA MARC M.D. CLIA NUMBER [id number] [facility] [place]. [id number] SURGICAL PATHOLOGY [id number] 00:00:00* Test Item Value Reference Range Interpretation Comme nts DIAGNOSIS: (test code = 8200) (NOTE) MICROSCOPIC DESCRIPTION: (te st code = 8210) (NOTE) CLINICAL DATA: (test code = 8401) (NOTE) GROSS DESCRIPTION: (test code = 8220) (NOTE) PATHOLOGIST: (test code = 8250) (NOTE) CPT: (test code = 8400) (NOTE) Herman Escobedo [facility] [id number] 00:00:00* Test Item Value Reference Range Interpretation Comme nts DIAGNOSIS: (test code = 8200) (NOTE) MICROSCOPIC DESCRIPTION: (te st code = 8210) (NOTE) CLINICAL DATA: (test code = 8401) (NOTE) GROSS DESCRIPTION: (test code = 8220) (NOTE) PATHOLOGIST: (test code = 8250) (NOTE) CPT: (test code = 8400) (NOTE) Herman Escobedo [place] [id number] 13:55:27* Test Item Value Reference Range Interpretation [...] Rice-pinkNUMBER OF TISSUE PIECES: MultipleSUBMITTED IN CASSETTE(S): [id number]: FormalinCOMMENTS:Irregular ly shaped tissue fragments and clotted blood. Filteredand entirely submitted. PATHOLOGIST: (test code = 8250) (NOTE) Ryan Condon M.D. Specimens processed at [facility], [address] [place] [address], , CLIA: [id number] interpreted at [facility], [address] [place] [address], ,CLIA: [id number] CPT: (test code = 8400) (NOTE) [id number] UNLESS OTH ERWISE INDICATED, ALL TESTING PERFORMED [facility] [employer] [address] [place] [id number] APPLICATIONS SUPPORT LEAD: ONELIA MARC M.D. CLIA NUMBER [id number] [facility] [place]. [id number] SURGICAL PATHOLOGY [id number] 00:00:00* Test Item Value Reference Range Interpretation Comme nts DIAGNOSIS: (test code = 8200) (NOTE) MICROSCOPIC DESCRIPTION: (te st code = 8210) (NOTE) CLINICAL DATA: (test code = 8401) (NOTE) GROSS DESCRIPTION: (test code = 8220) (NOTE) PATHOLOGIST: (test code = 8250) (NOTE) CPT: (test code = 8400) (NOTE) Herman Escobedo [place] PATH[facility] [id number] 00:00:00* Test Item Value Reference Range Interpretation Comme nts DIAGNOSIS: (test code = 8200) (NOTE) MICROSCOPIC DESCRIPTION: (te st code = 8210) (NOTE) CLINICAL DATA: (test code = 8401) (NOTE) GROSS DESCRIPTION: (test code = 8220) (NOTE) PATHOLOGIST: (test code = 8250) (NOTE) CPT: (test code = 8400) (NOTE) Herman BanksLIPID [id number] 03:24:51* Test Item Value Reference Range Interpretation Comme nts CHOLESTEROL (test code = 2210) 208 MG/DL <200 H TRIGLYCERIDES (test code = 2232) 157 MG/DL <150 H HDL CHOLESTEROL (test code = 2220) 45 MG/DL >39 CALC LDL CHOL (test code = 2237) 134 MG/DL <100 H NOTE: CALCULATED LDL IS BASED ON RGEGORIA-LEARY METHOD WHICHINCLUDES ADJUSTABLE TRIGLYCERIDE:VLDL CHOLESTEROL RATIO.THIS FACTOR VARIES BY MEASURED TRIGLYCERIDE AND NON-HDLCHOLESTEROL CONCENTRATIONS WITH INCREASED CALCULATED LDL SEENIN HIGHER TRIGLYCERIDE OR LOWER NON-HDL SPECIMENS. FOR MOREINFORMATION, SEE CLIENT ANNOUNCEMENT AT [email or web address] RISK RATIO LDL/HDL (test code = 2238) 2.98 RATIO <3.22 UNLESS OTHERW ISE INDICATED, ALL TESTING PERFORMED [facility] [address] [place] [address], [place] [address] APPLICATIONS SUPPORT LEAD: ONELIA MARC M.D. CLIA NUMBER [id number] [facility] [place]. [id number] CBC W/AUTO DIFF WITH [id number] 02:59:19* Test Item Value Reference Range Interpretation [...] 0.00-0.10 ABS NUCLEATED RBCS (test code = 06625) 0.00 K/UL 0.00-0.11 CBC W/AUTO [id number] 00:00:00* Test Item Value Reference Range Interpretation Comme nts WBC (test code = 1001) 6.6 K/UL RBC (test code = 1002) 5.24 M/UL HEMOGLOBIN (test code = 1003) 15.1 G/DL HEMATOCRIT (test code = 1004) 44.1 % MCV (test code = 1005) 84.2 fL MCH (test code = 1006) 28.8 PG MCHC (test code = 1007) 34.2 G/DL RDW (test code = 1038) 13.5 % NEUTROPHILS (test code = 1008) 53.4 % LYMPHOCYTES (test code = 1010) 33.0 % MONOCYTES (test code = 1011) 9.7 % EOSINOPHILS (test code = 1012) 2.0 % BASOPHILS (test code = 1013) 1.4 % IMMATURE GRANULOCYTES (test code = 1036) 0.5 % NUCLEATED RBCS (test code = 1065) 0.0 /100WBC'S PLATELET COUNT (test code = 1015) 315 K/UL ABSOLUTE NEUTROPHILS (test c ode = 1066) 3.53 K/UL ABSOLUTE LYMPHOCYTES (test c ode = 1067) 2.18 K/UL ABSOLUTE MONOCYTES (test cod e = 1068) 0.64 K/UL ABSOLUTE EOSINOPHILS (test c ode = 1040) 0.13 K/UL ABSOLUTE BASOPHILS (test cod e = 1069) 0.09 K/UL ABS IMMATURE GRANULOCYTES (t est code = 1020) 0.03 K/UL ABS NUCLEATED RBCS (test cod e = 54449) 0.00 K/UL Herman BanksLIPID [id number] 00:00:00* Test Item Value Reference Range Interpretation Comme nts CHOLESTEROL (test code = 2210) 208 MG/DL TRIGLYCERIDES (test code = 2232) 157 MG/DL HDL CHOLESTEROL (test code = 2220) 45 MG/DL CALC LDL CHOL (test code = 2237) 134 MG/DL RISK RATIO LDL/HDL (test cod e = 2238) 2.98 RATIO Herman BanksCBC W/AUTO [id number] 00:00:00* Test Item Value Reference Range Interpretation Comme nts WBC (test code = 1001) 6.6 K/UL RBC (test code = 1002) 5.24 M/UL HEMOGLOBIN (test code = 1003) 15.1 G/DL HEMATOCRIT (test code = 1004) 44.1 % MCV (test code = 1005) 84.2 fL MCH (test code = 1006) 28.8 PG MCHC (test code = 1007) 34.2 G/DL RDW (test code = 1038) 13.5 % NEUTROPHILS (test code = 1008) 53.4 % LYMPHOCYTES (test code = 1010) 33.0 % MONOCYTES (test code = 1011) 9.7 % EOSINOPHILS (test code = 1012) 2.0 % BASOPHILS (test code = 1013) 1.4 % IMMATURE GRANULOCYTES (test code = 1036) 0.5 % NUCLEATED RBCS (test code = 1065) 0.0 /100WBC'S PLATELET COUNT (test code = 1015) 315 K/UL ABSOLUTE NEUTROPHILS (test c ode = 1066) 3.53 K/UL ABSOLUTE LYMPHOCYTES (test c ode = 1067) 2.18 K/UL ABSOLUTE MONOCYTES (test cod e = 1068) 0.64 K/UL ABSOLUTE EOSINOPHILS (test c ode = 1040) 0.13 K/UL ABSOLUTE BASOPHILS (test cod e = 1069) 0.09 K/UL ABS IMMATURE GRANULOCYTES (t est code = 1020) 0.03 K/UL ABS NUCLEATED RBCS (test cod e = 60839) 0.00 K/UL Herman Escobedo Wolf RunLIPID [id number] 00:00:00* Test Item Value Reference Range Interpretation Comme nts CHOLESTEROL (test code = 2210) 208 MG/DL TRIGLYCERIDES (test code = 2232) 157 MG/DL HDL CHOLESTEROL (test code = 2220) 45 MG/DL CALC LDL CHOL (test code = 2237) 134 MG/DL RISK RATIO LDL/HDL (test cod e = 2238) 2.98 RATIO Herman Escobedo DarrenCOMPREHENSIVE METABOLIC [id number] 00:00:00* Test Item Value Reference Range Interpretation Comme nts GLUCOSE (test code = 2217) 129 MG/DL BUN (test code = 2208) 9 MG/DL CREATININE (test code = 2214) 1.10 MG/DL eGFR AMER. (test cod e = 05698) 60 ML/MIN/1.73 eGFR NON- AMER. (test code = 25882) 52 ML/MIN/1.73 CALC BUN/CREAT (test code = 2235) 8 RATIO SODIUM (test code = 2231) 133 MEQ/L POTASSIUM (test code = 2228) 3.8 MEQ/L CHLORIDE (test code = 2215) 93 MEQ/L CARBON DIOXIDE (test code = 2206) 24 MEQ/L CALCIUM (test code = 2209) 9.7 MG/DL PROTEIN, TOTAL (test code = 2229) 7.1 G/DL ALBUMIN (test code = 2201) 3.7 G/DL CALC GLOBULIN (test code = 2240) 3.4 G/DL CALC A/G RATIO (test code = 2234) 1.1 RATIO BILIRUBIN, TOTAL (test code = 2207) 0.9 MG/DL ALKALINE PHOSPHATASE (test code = 2204) 131 U/L AST (test code = 2218) 48 U/L ALT (test code = 2219) 24 U/L Herman BanksLIPID [id number] 00:00:00* Test Item Value Reference Range Interpretation Comme nts CHOLESTEROL (test code = 2210) 197 MG/DL TRIGLYCERIDES (test code = 2232) 107 MG/DL HDL CHOLESTEROL (test code = 2220) 55 MG/DL CALC LDL CHOL (test code = 2237) 121 MG/DL RISK RATIO LDL/HDL (test cod e = 2238) 2.20 RATIO Herman BanksCBC W/AUTO [id number] 00:00:00* Test Item Value Reference Range Interpretation Comme nts WBC (test code = 1001) 5.4 K/UL RBC (test code = 1002) 5.25 M/UL HEMOGLOBIN (test code = 1003) 16.1 G/DL HEMATOCRIT (test code = 1004) 46.4 % MCV (test code = 1005) 88.4 fL MCH (test code = 1006) 30.7 PG MCHC (test code = 1007) 34.7 G/DL RDW (test code = 1038) 13.5 % NEUTROPHILS (test code = 1008) 51.4 % LYMPHOCYTES (test code = 1010) 39.0 % MONOCYTES (test code = 1011) 5.9 % EOSINOPHILS (test code = 1012) 2.0 % BASOPHILS (test code = 1013) 1.3 % IMMATURE GRANULOCYTES (test code = 1036) 0.4 % NUCLEATED RBCS (test code = 1065) 0.0 /100WBC'S PLATELET COUNT (test code = 1015) 240 K/UL ABSOLUTE NEUTROPHILS (test c ode = 1066) 2.80 K/UL ABSOLUTE LYMPHOCYTES (test c ode = 1067) 2.12 K/UL ABSOLUTE MONOCYTES (test cod e = 1068) 0.32 K/UL ABSOLUTE EOSINOPHILS (test c ode = 1040) 0.11 K/UL ABSOLUTE BASOPHILS (test cod e = 1069) 0.07 K/UL ABS IMMATURE GRANULOCYTES (t est code = 1020) 0.02 K/UL ABS NUCLEATED RBCS (test cod e = 19904) 0.00 K/UL Herman Escobedo DarrenCOMPREHENSIVE METABOLIC [id number] 00:00:00* Test Item Value Reference Range Interpretation Comme nts GLUCOSE (test code = 2217) 129 MG/DL BUN (test code = 2208) 9 MG/DL CREATININE (test code = 2214) 1.10 MG/DL eGFR AMER. (test cod e = 68596) 60 ML/MIN/1.73 eGFR NON- AMER. (test code = 75220) 52 ML/MIN/1.73 CALC BUN/CREAT (test code = 2235) 8 RATIO SODIUM (test code = 2231) 133 MEQ/L POTASSIUM (test code = 2228) 3.8 MEQ/L CHLORIDE (test code = 2215) 93 MEQ/L CARBON DIOXIDE (test code = 2206) 24 MEQ/L CALCIUM (test code = 2209) 9.7 MG/DL PROTEIN, TOTAL (test code = 2229) 7.1 G/DL ALBUMIN (test code = 2201) 3.7 G/DL CALC GLOBULIN (test code = 2240) 3.4 G/DL CALC A/G RATIO (test code = 2234) 1.1 RATIO BILIRUBIN, TOTAL (test code = 2207) 0.9 MG/DL ALKALINE PHOSPHATASE (test code = 2204) 131 U/L AST (test code = 2218) 48 U/L ALT (test code = 2219) 24 U/L Herman Escobedo AustinLIPID [id number] 00:00:00* Test Item Value Reference Range Interpretation Comme nts CHOLESTEROL (test code = 2210) 197 MG/DL TRIGLYCERIDES (test code = 2232) 107 MG/DL HDL CHOLESTEROL (test code = 2220) 55 MG/DL CALC LDL CHOL (test code = 2237) 121 MG/DL RISK RATIO LDL/HDL (test cod e = 2238) 2.20 RATIO Herman Escobedo AustinCBC W/AUTO [id number] 00:00:00* Test Item Value Reference Range Interpretation Comme nts WBC (test code = 1001) 5.4 K/UL RBC (test code = 1002) 5.25 M/UL HEMOGLOBIN (test code = 1003) 16.1 G/DL HEMATOCRIT (test code = 1004) 46.4 % MCV (test code = 1005) 88.4 fL MCH (test code = 1006) 30.7 PG MCHC (test code = 1007) 34.7 G/DL RDW (test code = 1038) 13.5 % NEUTROPHILS (test code = 1008) 51.4 % LYMPHOCYTES (test code = 1010) 39.0 % MONOCYTES (test code = 1011) 5.9 % EOSINOPHILS (test code = 1012) 2.0 % BASOPHILS (test code = 1013) 1.3 % IMMATURE GRANULOCYTES (test code = 1036) 0.4 % NUCLEATED RBCS (test code = 1065) 0.0 /100WBC'S PLATELET COUNT (test code = 1015) 240 K/UL ABSOLUTE NEUTROPHILS (test c ode = 1066) 2.80 K/UL ABSOLUTE LYMPHOCYTES (test c ode = 1067) 2.12 K/UL ABSOLUTE MONOCYTES (test cod e = 1068) 0.32 K/UL ABSOLUTE EOSINOPHILS (test c ode = 1040) 0.11 K/UL ABSOLUTE BASOPHILS (test cod e = 1069) 0.07 K/UL ABS IMMATURE GRANULOCYTES (t est code = 1020) 0.02 K/UL ABS NUCLEATED RBCS (test cod e = 22214) 0.00 K/UL Herman Escobedo AustinSURGICAL PATHOLOGY [id number] 00:00:00* Test Item Value Reference Range Interpretation Comme nts DIAGNOSIS: (test code = 8200) (NOTE) MICROSCOPIC DESCRIPTION: (te st code = 8210) (NOTE) CLINICAL DATA: (test code = 8401) (NOTE) GROSS DESCRIPTION: (test code = 8220) (NOTE) PATHOLOGIST: (test code = 8250) (NOTE) CPT: (test code = 8400) (NOTE) Herman Escobedo AustinSURGICAL PATHOLOGY [id number] 00:00:00* Test Item Value Reference Range Interpretation Comme nts DIAGNOSIS: (test code = 8200) (NOTE) MICROSCOPIC DESCRIPTION: (te st code = 8210) (NOTE) CLINICAL DATA: (test code = 8401) (NOTE) GROSS DESCRIPTION: (test code = 8220) (NOTE) PATHOLOGIST: (test code = 8250) (NOTE) CPT: (test code = 8400) (NOTE) Herman Escobedo AustinPAP TEST, THINPREP, [id number] 00:00:00* Test Item Value Reference Range Interpretation Comme nts SOURCE: (test code = 8001) Cervical/Endocervica l SLIDES: (test code = 8011) 2 LMP: (test code = 8021) SEE NOTE SPECIMEN ADEQUACY: (test code = 36178) (NOTE) INTERPRETATION: (test code = 76956) NILM/NO EPITH. ABNORMALITY;SEE BELOW OTHER COMMENTS: (test code = 8081) (NOTE) PARTY PLAN DEALER: (test code = 8101) TEJA Guzman(ASCP)I AC PATHOLOGIST INTERPRETATION BY: (test code = 8122) Mana Quintana M.D. LOCATION: (test code = 06822) (NOTE) CPT: (test code = 8140) (NOTE) Herman Escobedo AustinHPV HIGH RISK WITH GENOTYPE, [id number] 00:00:00* Test Item Value Reference Range Interpretation Comme nts HPV HIGH RISK INTERP (test c ode = 17701) NEGATIVE HPV 16 (test code = 16356) NEGATIVE HPV 18 (test code = 28143) NEGATIVE HPV, HR, OTHER GENOTYPES (te st code = 18792) NEGATIVE Herman BanksPAP TEST, THINPREP, [id number] 00:00:00* Test Item Value Reference Range Interpretation Comme nts SOURCE: (test code = 8001) Cervical/Endocervica l SLIDES: (test code = 8011) 2 LMP: (test code = 8021) SEE NOTE SPECIMEN ADEQUACY: (test code = 26145) (NOTE) INTERPRETATION: (test code = 73540) NILM/NO EPITH. ABNORMALITY;SEE BELOW OTHER COMMENTS: (test code = 8081) (NOTE) PARTY PLAN DEALER: (test code = 8101) TEJA Guzman(ASCP)I AC PATHOLOGIST INTERPRETATION BY: (test code = 8122) Mana Quintana, M.D. LOCATION: (test code = 07770) (NOTE) CPT: (test code = 8140) (NOTE) Herman BanksHPV HIGH RISK WITH GENOTYPE, [id number] 00:00:00* Test Item Value Reference Range Interpretation Comme nts HPV HIGH RISK INTERP (test c ode = 23141) NEGATIVE HPV 16 (test code = 88542) NEGATIVE HPV 18 (test code = 16264) NEGATIVE HPV, HR, OTHER GENOTYPES (te st code = 03993) NEGATIVE Herman BanksCOMPREHENSIVE METABOLIC [id number] 00:00:00* Test Item Value Reference Range Interpretation Comme nts GLUCOSE (test code = 2217) 92 MG/DL BUN (test code = 2208) 5 MG/DL CREATININE (test code = 2214) 0.66 MG/DL eGFR AMER. (test cod e = 97866) 107 ML/MIN/1.73 eGFR NON- AMER. (test code = 48379) 92 ML/MIN/1.73 CALC BUN/CREAT (test code = 2235) 8 RATIO SODIUM (test code = 2231) 126 MEQ/L POTASSIUM (test code = 2228) 3.8 MEQ/L CHLORIDE (test code = 2215) 87 MEQ/L CARBON DIOXIDE (test code = 2206) 29 MEQ/L CALCIUM (test code = 2209) 10.0 MG/DL PROTEIN, TOTAL (test code = 2229) 8.1 G/DL ALBUMIN (test code = 2201) 4.3 G/DL CALC GLOBULIN (test code = 2240) 3.8 G/DL CALC A/G RATIO (test code = 2234) 1.1 RATIO BILIRUBIN, TOTAL (test code = 2207) 0.7 MG/DL ALKALINE PHOSPHATASE (test code = 2204) 128 U/L AST (test code = 2218) 73 U/L ALT (test code = 2219) 36 U/L Herman BanksCBC W/AUTO [id number] 00:00:00* Test Item Value Reference Range Interpretation Comme nts WBC (test code = 1001) 4.8 K/UL RBC (test code = 1002) 5.57 M/UL HEMOGLOBIN (test code = 1003) 16.6 G/DL HEMATOCRIT (test code = 1004) 48.8 % MCV (test code = 1005) 87.6 fL MCH (test code = 1006) 29.8 PG MCHC (test code = 1007) 34.0 G/DL RDW (test code = 1038) 13.6 % NEUTROPHILS (test code = 1008) 48.4 % LYMPHOCYTES (test code = 1010) 37.6 % MONOCYTES (test code = 1011) 11.6 % EOSINOPHILS (test code = 1012) 1.2 % BASOPHILS (test code = 1013) 1.2 % PLATELET COUNT (test code = 1015) 257 K/UL Herman Escobedo DarrenCOMPREHENSIVE METABOLIC [id number] 00:00:00* Test Item Value Reference Range Interpretation Comme nts GLUCOSE (test code = 2217) 92 MG/DL BUN (test code = 2208) 5 MG/DL CREATININE (test code = 2214) 0.66 MG/DL eGFR AMER. (test cod e = 12474) 107 ML/MIN/1.73 eGFR NON- AMER. (test code = 17696) 92 ML/MIN/1.73 CALC BUN/CREAT (test code = 2235) 8 RATIO SODIUM (test code = 2231) 126 MEQ/L POTASSIUM (test code = 2228) 3.8 MEQ/L CHLORIDE (test code = 2215) 87 MEQ/L CARBON DIOXIDE (test code = 2206) 29 MEQ/L CALCIUM (test code = 2209) 10.0 MG/DL PROTEIN, TOTAL (test code = 2229) 8.1 G/DL ALBUMIN (test code = 2201) 4.3 G/DL CALC GLOBULIN (test code = 2240) 3.8 G/DL CALC A/G RATIO (test code = 2234) 1.1 RATIO BILIRUBIN, TOTAL (test code = 2207) 0.7 MG/DL ALKALINE PHOSPHATASE (test code = 2204) 128 U/L AST (test code = 2218) 73 U/L ALT (test code = 2219) 36 U/L Herman Escobedo DarrenCBC W/AUTO [id number] 00:00:00* Test Item Value Reference Range Interpretation Comme nts WBC (test code = 1001) 4.8 K/UL RBC (test code = 1002) 5.57 M/UL HEMOGLOBIN (test code = 1003) 16.6 G/DL HEMATOCRIT (test code = 1004) 48.8 % MCV (test code = 1005) 87.6 fL MCH (test code = 1006) 29.8 PG MCHC (test code = 1007) 34.0 G/DL RDW (test code = 1038) 13.6 % NEUTROPHILS (test code = 1008) 48.4 % LYMPHOCYTES (test code = 1010) 37.6 % MONOCYTES (test code = 1011) 11.6 % EOSINOPHILS (test code = 1012) 1.2 % BASOPHILS (test code = 1013) 1.2 % PLATELET COUNT (test code = 1015) 257 K/UL Herman BanksLIPID [id number] 00:00:00* Test Item Value Reference Range Interpretation Comme nts CHOLESTEROL (test code = 2210) 241 MG/DL TRIGLYCERIDES (test code = 2232) 97 MG/DL HDL CHOLESTEROL (test code = 2220) 62 MG/DL CALC LDL CHOL (test code = 2237) 158 MG/DL RISK RATIO LDL/HDL (test cod e = 2238) 2.55 RATIO Herman BanksCBC W/AUTO [id number] 00:00:00* Test Item Value Reference Range Interpretation Comme nts WBC (test code = 1001) 5.6 K/UL RBC (test code = 1002) 5.54 M/UL HEMOGLOBIN (test code = 1003) 15.7 G/DL HEMATOCRIT (test code = 1004) 47.8 % MCV (test code = 1005) 86.3 fL MCH (test code = 1006) 28.3 PG MCHC (test code = 1007) 32.8 G/DL RDW (test code = 1038) 13.5 % NEUTROPHILS (test code = 1008) 49.4 % LYMPHOCYTES (test code = 1010) 39.7 % MONOCYTES (test code = 1011) 8.9 % EOSINOPHILS (test code = 1012) 1.1 % BASOPHILS (test code = 1013) 0.9 % PLATELET COUNT (test code = 1015) 271 K/UL Herman [id number] 00:00:00* Test Item Value Reference Range Interpretation Comme nts TSH, THIRD GENERATION (test code = 2821) 0.355 UIU/ML Herman BanksCOMPREHENSIVE METABOLIC [id number] 00:00:00* Test Item Value Reference Range Interpretation Comme nts GLUCOSE (test code = 2217) 97 MG/DL BUN (test code = 2208) 10 MG/DL CREATININE (test code = 2214) 0.78 MG/DL eGFR AMER. (test cod e = 91889) 92 ML/MIN/1.73 eGFR NON- AMER. (test code = 96964) 79 ML/MIN/1.73 CALC BUN/CREAT (test code = 2235) 13 RATIO SODIUM (test code = 2231) 136 MEQ/L POTASSIUM (test code = 2228) 4.0 MEQ/L CHLORIDE (test code = 2215) 94 MEQ/L CARBON DIOXIDE (test code = 2206) 27 MEQ/L CALCIUM (test code = 2209) 10.1 MG/DL PROTEIN, TOTAL (test code = 2229) 7.5 G/DL ALBUMIN (test code = 2201) 4.0 G/DL CALC GLOBULIN (test code = 2240) 3.5 G/DL CALC A/G RATIO (test code = 2234) 1.1 RATIO BILIRUBIN, TOTAL (test code = 2207) 0.8 MG/DL ALKALINE PHOSPHATASE (test code = 2204) 131 U/L AST (test code = 2218) 44 U/L ALT (test code = 2219) 23 U/L Herman BanksLIPID [id number] 00:00:00* Test Item Value Reference Range Interpretation Comme nts CHOLESTEROL (test code = 2210) 241 MG/DL TRIGLYCERIDES (test code = 2232) 97 MG/DL HDL CHOLESTEROL (test code = 2220) 62 MG/DL CALC LDL CHOL (test code = 2237) 158 MG/DL RISK RATIO LDL/HDL (test cod e = 2238) 2.55 RATIO Herman BanksCBC W/AUTO [id number] 00:00:00* Test Item Value Reference Range Interpretation Comme nts WBC (test code = 1001) 5.6 K/UL RBC (test code = 1002) 5.54 M/UL HEMOGLOBIN (test code = 1003) 15.7 G/DL HEMATOCRIT (test code = 1004) 47.8 % MCV (test code = 1005) 86.3 fL MCH (test code = 1006) 28.3 PG MCHC (test code = 1007) 32.8 G/DL RDW (test code = 1038) 13.5 % NEUTROPHILS (test code = 1008) 49.4 % LYMPHOCYTES (test code = 1010) 39.7 % MONOCYTES (test code = 1011) 8.9 % EOSINOPHILS (test code = 1012) 1.1 % BASOPHILS (test code = 1013) 0.9 % PLATELET COUNT (test code = 1015) 271 K/UL Herman Escobedo [id number] 00:00:00* Test Item Value Reference Range Interpretation Comme nts TSH, THIRD GENERATION (test code = 2821) 0.355 UIU/ML Herman BanksCOMPREHENSIVE METABOLIC [id number] 00:00:00* Test Item Value Reference Range Interpretation Comme nts GLUCOSE (test code = 2217) 97 MG/DL BUN (test code = 2208) 10 MG/DL CREATININE (test code = 2214) 0.78 MG/DL eGFR AMER. (test cod e = 39409) 92 ML/MIN/1.73 eGFR NON- AMER. (test code = 22176) 79 ML/MIN/1.73 CALC BUN/CREAT (test code = 2235) 13 RATIO SODIUM (test code = 2231) 136 MEQ/L POTASSIUM (test code = 2228) 4.0 MEQ/L CHLORIDE (test code = 2215) 94 MEQ/L CARBON DIOXIDE (test code = 2206) 27 MEQ/L CALCIUM (test code = 2209) 10.1 MG/DL PROTEIN, TOTAL (test code = 2229) 7.5 G/DL ALBUMIN (test code = 2201) 4.0 G/DL CALC GLOBULIN (test code = 2240) 3.5 G/DL CALC A/G RATIO (test code = 2234) 1.1 RATIO BILIRUBIN, TOTAL (test code = 2207) 0.8 MG/DL ALKALINE PHOSPHATASE (test code = 2204) 131 U/L AST (test code = 2218) 44 U/L ALT (test code = 2219) 23 U/L Herman BanksCOMPREHENSIVE METABOLIC [id number] 00:00:00* Test Item Value Reference Range Interpretation Comme nts GLUCOSE (test code = 2217) 91 MG/DL BUN (test code = 2208) 11 MG/DL CREATININE (test code = 2214) 0.84 MG/DL eGFR AMER. (test cod e = 87381) 85 ML/MIN/1.73 eGFR NON- AMER. (test code = 51609) 73 ML/MIN/1.73 CALC BUN/CREAT (test code = 2235) 13 RATIO SODIUM (test code = 2231) 138 MEQ/L POTASSIUM (test code = 2228) 4.1 MEQ/L CHLORIDE (test code = 2215) 98 MEQ/L CARBON DIOXIDE (test code = 2206) 27 MEQ/L CALCIUM (test code = 2209) 9.9 MG/DL PROTEIN, TOTAL (test code = 2229) 7.3 G/DL ALBUMIN (test code = 2201) 4.2 G/DL CALC GLOBULIN (test code = 2240) 3.1 G/DL CALC A/G RATIO (test code = 2234) 1.4 RATIO BILIRUBIN, TOTAL (test code = 2207) 0.4 MG/DL ALKALINE PHOSPHATASE (test code = 2204) 125 U/L AST (test code = 2218) 46 U/L ALT (test code = 2219) 28 U/L Herman Escobedo Wolf RunLIPID [id number] 00:00:00* Test Item Value Reference Range Interpretation Comme nts CHOLESTEROL (test code = 2210) 233 MG/DL TRIGLYCERIDES (test code = 2232) 88 MG/DL HDL CHOLESTEROL (test code = 2220) 69 MG/DL CALC LDL CHOL (test code = 2237) 146 MG/DL RISK RATIO LDL/HDL (test cod e = 2238) 2.12 RATIO Herman BanksCOMPREHENSIVE METABOLIC [id number] 00:00:00* Test Item Value Reference Range Interpretation Comme nts GLUCOSE (test code = 2217) 91 MG/DL BUN (test code = 2208) 11 MG/DL CREATININE (test code = 2214) 0.84 MG/DL eGFR AMER. (test cod e = 38603) 85 ML/MIN/1.73 eGFR NON- AMER. (test code = 51878) 73 ML/MIN/1.73 CALC BUN/CREAT (test code = 2235) 13 RATIO SODIUM (test code = 2231) 138 MEQ/L POTASSIUM (test code = 2228) 4.1 MEQ/L CHLORIDE (test code = 2215) 98 MEQ/L CARBON DIOXIDE (test code = 2206) 27 MEQ/L CALCIUM (test code = 2209) 9.9 MG/DL PROTEIN, TOTAL (test code = 2229) 7.3 G/DL ALBUMIN (test code = 2201) 4.2 G/DL CALC GLOBULIN (test code = 2240) 3.1 G/DL CALC A/G RATIO (test code = 2234) 1.4 RATIO BILIRUBIN, TOTAL (test code = 2207) 0.4 MG/DL ALKALINE PHOSPHATASE (test code = 2204) 125 U/L AST (test code = 2218) 46 U/L ALT (test code = 2219) 28 U/L Herman BanksLIPID [id number] 00:00:00* Test Item Value Reference Range Interpretation Comme nts CHOLESTEROL (test code = 2210) 233 MG/DL TRIGLYCERIDES (test code = 2232) 88 MG/DL HDL CHOLESTEROL (test code = 2220) 69 MG/DL CALC LDL CHOL (test code = 2237) 146 MG/DL RISK RATIO LDL/HDL (test cod e = 2238) 2.12 RATIO Herman BanksLIPID [id number] 00:00:00* Test Item Value Reference Range Interpretation Comme nts CHOLESTEROL (test code = 2210) 212 MG/DL TRIGLYCERIDES (test code = 2232) 88 MG/DL HDL CHOLESTEROL (test code = 2220) 83 MG/DL CALC LDL CHOL (test code = 2237) 111 MG/DL RISK RATIO LDL/HDL (test cod e = 2238) 1.34 RATIO Herman BanksCBC W/AUTO [id number] 00:00:00* Test Item Value Reference Range Interpretation Comme nts WBC (test code = 1001) 5.5 K/UL RBC (test code = 1002) 5.16 M/UL HEMOGLOBIN (test code = 1003) 15.2 G/DL HEMATOCRIT (test code = 1004) 44.4 % MCV (test code = 1005) 86.0 fL MCH (test code = 1006) 29.5 PG MCHC (test code = 1007) 34.2 G/DL RDW (test code = 1038) 13.1 % NEUTROPHILS (test code = 1008) 42.7 % LYMPHOCYTES (test code = 1010) 46.5 % MONOCYTES (test code = 1011) 7.5 % EOSINOPHILS (test code = 1012) 1.8 % BASOPHILS (test code = 1013) 1.5 % PLATELET COUNT (test code = 1015) 289 K/UL Herman BanksCOMPREHENSIVE METABOLIC [id number] 00:00:00* Test Item Value Reference Range Interpretation Comme nts GLUCOSE (test code = 2217) 102 MG/DL BUN (test code = 2208) 8 MG/DL CREATININE (test code = 2214) 0.62 MG/DL eGFR AMER. (test cod e = 48951) 110 ML/MIN/1.73 eGFR NON- AMER. (test code = 68872) 95 ML/MIN/1.73 CALC BUN/CREAT (test code = 2235) 13 RATIO SODIUM (test code = 2231) 137 MEQ/L POTASSIUM (test code = 2228) 4.6 MEQ/L CHLORIDE (test code = 2215) 97 MEQ/L CARBON DIOXIDE (test code = 2206) 27 MEQ/L CALCIUM (test code = 2209) 10.2 MG/DL PROTEIN, TOTAL (test code = 2229) 7.5 G/DL ALBUMIN (test code = 2201) 4.2 G/DL CALC GLOBULIN (test code = 2240) 3.3 G/DL CALC A/G RATIO (test code = 2234) 1.3 RATIO BILIRUBIN, TOTAL (test code = 2207) 0.5 MG/DL ALKALINE PHOSPHATASE (test code = 2204) 136 U/L AST (test code = 2218) 58 U/L ALT (test code = 2219) 37 U/L Herman BanksLIPID [id number] 00:00:00* Test Item Value Reference Range Interpretation Comme nts CHOLESTEROL (test code = 2210) 212 MG/DL TRIGLYCERIDES (test code = 2232) 88 MG/DL HDL CHOLESTEROL (test code = 2220) 83 MG/DL CALC LDL CHOL (test code = 2237) 111 MG/DL RISK RATIO LDL/HDL (test cod e = 2238) 1.34 RATIO Herman Escobedo DarrenCBC W/AUTO [id number] 00:00:00* Test Item Value Reference Range Interpretation Comme nts WBC (test code = 1001) 5.5 K/UL RBC (test code = 1002) 5.16 M/UL HEMOGLOBIN (test code = 1003) 15.2 G/DL HEMATOCRIT (test code = 1004) 44.4 % MCV (test code = 1005) 86.0 fL MCH (test code = 1006) 29.5 PG MCHC (test code = 1007) 34.2 G/DL RDW (test code = 1038) 13.1 % NEUTROPHILS (test code = 1008) 42.7 % LYMPHOCYTES (test code = 1010) 46.5 % MONOCYTES (test code = 1011) 7.5 % EOSINOPHILS (test code = 1012) 1.8 % BASOPHILS (test code = 1013) 1.5 % PLATELET COUNT (test code = 1015) 289 K/UL Herman Escobedo DarrenCOMPREHENSIVE METABOLIC [id number] 00:00:00* Test Item Value Reference Range Interpretation Comme nts GLUCOSE (test code = 2217) 102 MG/DL BUN (test code = 2208) 8 MG/DL CREATININE (test code = 2214) 0.62 MG/DL eGFR AMER. (test cod e = 61921) 110 ML/MIN/1.73 eGFR NON- AMER. (test code = 23660) 95 ML/MIN/1.73 CALC BUN/CREAT (test code = 2235) 13 RATIO SODIUM (test code = 2231) 137 MEQ/L POTASSIUM (test code = 2228) 4.6 MEQ/L CHLORIDE (test code = 2215) 97 MEQ/L CARBON DIOXIDE (test code = 2206) 27 MEQ/L CALCIUM (test code = 2209) 10.2 MG/DL PROTEIN, TOTAL (test code = 2229) 7.5 G/DL ALBUMIN (test code = 2201) 4.2 G/DL CALC GLOBULIN (test code = 2240) 3.3 G/DL CALC A/G RATIO (test code = 2234) 1.3 RATIO BILIRUBIN, TOTAL (test code = 2207) 0.5 MG/DL ALKALINE PHOSPHATASE (test code = 2204) 136 U/L AST (test code = 2218) 58 U/L ALT (test code = 2219) 37 U/L Herman BanksLIPID [id number] 00:00:00* Test Item Value Reference Range Interpretation Comme nts CHOLESTEROL, TOTAL (test cod e = 2093-3) 207 mg/dL HDL CHOLESTEROL (test code = 5-9) 72 mg/dL TRIGLYCERIDES (test code = 2571-8) 128 mg/dL LDL-CHOLESTEROL (test code = 97632-4) 111 mg/dL(calc) CHOL/HDLC RATIO (test code = 9830-1) 2.9 (calc) NON HDL CHOLESTEROL (test code = 97064-7) 135 mg/dL(calc) Herman BanksCOMPREHENSIVE METABOLIC [id number] 00:00:00* Test Item Value Reference Range Interpretation Comme nts GLUCOSE (test code = 2345-7) 95 mg/dL UREA NITROGEN (BUN) (test code = 3094-0) 11 mg/dL CREATININE (test code = 2160-0) 0.71 mg/dL eGFR NON-AFR. PARAGUAYAN (test code = 14364-6) 91 mL/min/1.73m2 eGFR (test code = 41230-6) 105 mL/min/1.73m2 BUN/CREATININE RATIO (test code = 3097-3) NOT APPLICABLE (calc) SODIUM (test code = 2951-2) 137 mmol/L POTASSIUM (test code = 2823-3) 3.7 mmol/L CHLORIDE (test code = 2075-0) 103 mmol/L CARBON DIOXIDE (test code = 2027-9) 24 mmol/L CALCIUM (test code = 37471-4) 9.8 mg/dL PROTEIN, TOTAL (test code = 2885-2) 7.0 g/dL ALBUMIN (test code = 1751-7) 4.0 g/dL GLOBULIN (test code = 65810-3) 3.0 g/dL(calc) ALBUMIN/GLOBULIN RATIO (test code = 1759-0) 1.3 (calc) BILIRUBIN, TOTAL (test code = 1975-2) 0.7 mg/dL ALKALINE PHOSPHATASE (test code = 6768-6) 106 U/L AST (test code = 1920-8) 26 U/L ALT (test code = 1742-6) 19 U/L Herman BanksLIPID [id number] 00:00:00* Test Item Value Reference Range Interpretation Comme nts CHOLESTEROL, TOTAL (test cod e = 2092-3) 207 mg/dL HDL CHOLESTEROL (test code = 5-9) 72 mg/dL TRIGLYCERIDES (test code = 2571-8) 128 mg/dL LDL-CHOLESTEROL (test code = 75655-2) 111 mg/dL(calc) CHOL/HDLC RATIO (test code = 9830-1) 2.9 (calc) NON HDL CHOLESTEROL (test code = 94832-6) 135 mg/dL(calc) Herman BanksCOMPREHENSIVE METABOLIC [id number] 00:00:00* Test Item Value Reference Range Interpretation Comme nts GLUCOSE (test code = 2345-7) 95 mg/dL UREA NITROGEN (BUN) (test code = 3094-0) 11 mg/dL CREATININE (test code = 2160-0) 0.71 mg/dL eGFR NON-AFR. PARAGUAYAN (test code = 58460-4) 91 mL/min/1.73m2 eGFR (test code = 89125-7) 105 mL/min/1.73m2 BUN/CREATININE RATIO (test code = 3097-3) NOT APPLICABLE (calc) SODIUM (test code = 2951-2) 137 mmol/L POTASSIUM (test code = 2823-3) 3.7 mmol/L CHLORIDE (test code = 2075-0) 103 mmol/L CARBON DIOXIDE (test code = 2027-9) 24 mmol/L CALCIUM (test code = 26057-5) 9.8 mg/dL PROTEIN, TOTAL (test code = 2885-2) 7.0 g/dL ALBUMIN (test code = 1751-7) 4.0 g/dL GLOBULIN (test code = 14537-5) 3.0 g/dL(calc) ALBUMIN/GLOBULIN RATIO (test code = 1759-0) 1.3 (calc) BILIRUBIN, TOTAL (test code = 1975-2) 0.7 mg/dL ALKALINE PHOSPHATASE (test code = 6768-6) 106 U/L AST (test code = 1920-8) 26 U/L ALT (test code = 1742-6) 19 U/L Herman BanksCOMPREHENSIVE METABOLIC [id number] 00:00:00* Test Item Value Reference Range Interpretation Comme nts GLUCOSE (test code = 2345-7) 85 mg/dL UREA NITROGEN (BUN) (test code = 3094-0) 9 mg/dL CREATININE (test code = 2160-0) 0.69 mg/dL eGFR NON-AFR. PARAGUAYAN (test code = 81533-3) 93 mL/min/1.73m2 eGFR (test code = 09217-1) 107 mL/min/1.73m2 BUN/CREATININE RATIO (test code = 3097-3) NOT APPLICABLE (calc) SODIUM (test code = 2951-2) 134 mmol/L POTASSIUM (test code = 2823-3) 4.0 mmol/L CHLORIDE (test code = 2075-0) 97 mmol/L CARBON DIOXIDE (test code = 2027-9) 28 mmol/L CALCIUM (test code = 67488-7) 10.1 mg/dL PROTEIN, TOTAL (test code = 2885-2) 7.6 g/dL ALBUMIN (test code = 1751-7) 4.2 g/dL GLOBULIN (test code = 26010-1) 3.4 g/dL(calc) ALBUMIN/GLOBULIN RATIO (test code = 1759-0) 1.2 (calc) BILIRUBIN, TOTAL (test code = 1975-2) 0.5 mg/dL ALKALINE PHOSPHATASE (test code = 6768-6) 93 U/L AST (test code = 1920-8) 43 U/L ALT (test code = 1742-6) 33 U/L Herman Gregg DarrenCOMPREHENSIVE METABOLIC [id number] 00:00:00* Test Item Value Reference Range Interpretation Comme nts GLUCOSE (test code = 2345-7) 85 mg/dL UREA NITROGEN (BUN) (test code = 3094-0) 9 mg/dL CREATININE (test code = 2160-0) 0.69 mg/dL eGFR NON-AFR. PARAGUAYAN (test code = 63322-2) 93 mL/min/1.73m2 eGFR (test code = 71588-7) 107 mL/min/1.73m2 BUN/CREATININE RATIO (test code = 3097-3) NOT APPLICABLE (calc) SODIUM (test code = 2951-2) 134 mmol/L POTASSIUM (test code = 2823-3) 4.0 mmol/L CHLORIDE (test code = 2075-0) 97 mmol/L CARBON DIOXIDE (test code = 8-9) 28 mmol/L CALCIUM (test code = 01488-4) 10.1 mg/dL PROTEIN, TOTAL (test code = 2885-2) 7.6 g/dL ALBUMIN (test code = 1751-7) 4.2 g/dL GLOBULIN (test code = 78772-0) 3.4 g/dL(calc) ALBUMIN/GLOBULIN RATIO (test code = 1759-0) 1.2 (calc) BILIRUBIN, TOTAL (test code = 1974-2) 0.5 mg/dL ALKALINE PHOSPHATASE (test code = 6768-6) 93 U/L AST (test code = 1920-8) 43 U/L ALT (test code = 1742-6) 33 U/L Herman BanksCOMPREHENSIVE METABOLIC PANEL [ADDED]2017-02-13 00:00:00* Test Item Value Reference Range Interpretation Comme nts GLUCOSE (test code = 2345-7) 100 mg/dL UREA NITROGEN (BUN) (test code = 3094-0) 14 mg/dL CREATININE (test code = 2160-0) 0.82 mg/dL eGFR NON-AFR. PARAGUAYAN (test code = 50349-1) 77 mL/min/1.73m2 eGFR (test code = 06123-0) 89 mL/min/1.73m2 BUN/CREATININE RATIO (test code = 3097-3) NOT APPLICABLE (calc) SODIUM (test code = 2951-2) 137 mmol/L POTASSIUM (test code = 2823-3) 4.7 mmol/L CHLORIDE (test code = 2075-0) 105 mmol/L CARBON DIOXIDE (test code = 8-9) 23 mmol/L CALCIUM (test code = 48747-7) 10.0 mg/dL PROTEIN, TOTAL (test code = 2885-2) 7.8 g/dL ALBUMIN (test code = 1751-7) 4.3 g/dL GLOBULIN (test code = 69017-7) 3.5 g/dL(calc) ALBUMIN/GLOBULIN RATIO (test code = 1759-0) 1.2 (calc) BILIRUBIN, TOTAL (test code = 1975-2) 0.9 mg/dL ALKALINE PHOSPHATASE (test code = 6768-6) 122 U/L AST (test code = 1920-8) 55 U/L ALT (test code = 1742-6) 41 U/L Herman BanksCBC (INCLUDES DIFF/PLT) [ADDED]2017-02-13 00:00:00* Test Item Value Reference Range Interpretation Comme nts WHITE BLOOD CELL COUNT (test code = 6690-2) 6.4 Thousand/uL RED BLOOD CELL COUNT (test code = 789-8) 5.13 Million/uL HEMOGLOBIN (test code = 718-7) 15.1 g/dL HEMATOCRIT (test code = 4544-3) 45.9 % MCV (test code = 787-2) 89.5 fL MCH (test code = 785-6) 29.4 pg MCHC (test code = 786-4) 32.9 g/dL RDW (test code = 788-0) 13.3 % PLATELET COUNT (test code = 777-3) 239 Thousand/uL MPV (test code = 776-5) 10.1 fL ABSOLUTE NEUTROPHILS (test code = 751-8) 2714 cells/uL ABSOLUTE BAND NEUTROPHILS (test code = 76967-6) DNR cells/uL ABSOLUTE METAMYELOCYTES (shanice t code = 03516-8) DNR cells/uL ABSOLUTE MYELOCYTES (test code = 01447-8) DNR cells/uL ABSOLUTE PROMYELOCYTES (test code = 24791-1) DNR cells/uL ABSOLUTE LYMPHOCYTES (test code = 731-0) 2944 cells/uL ABSOLUTE MONOCYTES (test cod e = 742-7) 614 cells/uL ABSOLUTE EOSINOPHILS (test code = 711-2) 77 cells/uL ABSOLUTE BASOPHILS (test cod e = 704-7) 51 cells/uL ABSOLUTE BLASTS (test code = 77323-6) DNR cells/uL ABSOLUTE NUCLEATED RBC (test code = 04629-4) DNR cells/uL NEUTROPHILS (test code = 770-8) 42.4 % BAND NEUTROPHILS (test code = 764-1) DNR % METAMYELOCYTES (test code = 740-1) DNR % MYELOCYTES (test code = 749-2) DNR % PROMYELOCYTES (test code = 783-1) DNR % LYMPHOCYTES (test code = 736-9) 46.0 % REACTIVE LYMPHOCYTES (test code = 39583-1) DNR % MONOCYTES (test code = 5905-5) 9.6 % EOSINOPHILS (test code = 713-8) 1.2 % BASOPHILS (test code = 706-2) 0.8 % BLASTS (test code = 709-6) DNR % NUCLEATED RBC (test code = 07372-1) DNR /100WBC COMMENT(S) (test code = 8251-1) DNR Herman Escobedo DarrenLIPID PANEL WITH REFLEX TO DIRECT LDL [ADDED]2017-02-13 00:00:00 * Test Item Value Reference Range Interpretation Comme nts CHOLESTEROL, TOTAL (test cod e = 2093-3) 282 mg/dL HDL CHOLESTEROL (test code = 2085-9) 102 mg/dL TRIGLYCERIDES (test code = 2571-8) 68 mg/dL LDL-CHOLESTEROL (test code = 22144-8) 166 mg/dL(calc) CHOL/HDLC RATIO (test code = 9830-1) 2.8 (calc) NON HDL CHOLESTEROL (test code = 73438-5) 180 mg/dL(calc) Herman Escobedo DarrenCOMPREHENSIVE METABOLIC PANEL [ADDED]2017-02-13 00:00:00* Test Item Value Reference Range Interpretation Comme nts GLUCOSE (test code = 2345-7) 100 mg/dL UREA NITROGEN (BUN) (test code = 3094-0) 14 mg/dL CREATININE (test code = 2160-0) 0.82 mg/dL eGFR NON-AFR. PARAGUAYAN (test code = 09789-0) 77 mL/min/1.73m2 eGFR (test code = 06826-6) 89 mL/min/1.73m2 BUN/CREATININE RATIO (test code = 3097-3) NOT APPLICABLE (calc) SODIUM (test code = 2951-2) 137 mmol/L POTASSIUM (test code = 2823-3) 4.7 mmol/L CHLORIDE (test code = 2075-0) 105 mmol/L CARBON DIOXIDE (test code = 2027-9) 23 mmol/L CALCIUM (test code = 47908-7) 10.0 mg/dL PROTEIN, TOTAL (test code = 2885-2) 7.8 g/dL ALBUMIN (test code = 1751-7) 4.3 g/dL GLOBULIN (test code = 94819-3) 3.5 g/dL(calc) ALBUMIN/GLOBULIN RATIO (test code = 1759-0) 1.2 (calc) BILIRUBIN, TOTAL (test code = 1975-2) 0.9 mg/dL ALKALINE PHOSPHATASE (test code = 6768-6) 122 U/L AST (test code = 1920-8) 55 U/L ALT (test code = 1742-6) 41 U/L [facility] ([facility]CLUD[facility]FF/PLT) [ADDED]2017-02-13 00:00:00* Test Item Value Reference Range Interpretation Comme nts WHITE BLOOD CELL COUNT (test code = 6690-2) 6.4 Thousand/uL RED BLOOD CELL COUNT (test code = 789-8) 5.13 Million/uL HEMOGLOBIN (test code = 718-7) 15.1 g/dL HEMATOCRIT (test code = 4544-3) 45.9 % MCV (test code = 787-2) 89.5 fL MCH (test code = 785-6) 29.4 pg MCHC (test code = 786-4) 32.9 g/dL RDW (test code = 788-0) 13.3 % PLATELET COUNT (test code = 777-3) 239 Thousand/uL MPV (test code = 776-5) 10.1 fL ABSOLUTE NEUTROPHILS (test code = 751-8) 2714 cells/uL ABSOLUTE BAND NEUTROPHILS (test code = 75434-6) DNR cells/uL ABSOLUTE METAMYELOCYTES (shanice t code = 61509-1) DNR cells/uL ABSOLUTE MYELOCYTES (test code = 09126-4) DNR cells/uL ABSOLUTE PROMYELOCYTES (test code = 98907-5) DNR cells/uL ABSOLUTE LYMPHOCYTES (test code = 731-0) 2944 cells/uL ABSOLUTE MONOCYTES (test cod e = 742-7) 614 cells/uL ABSOLUTE EOSINOPHILS (test code = 711-2) 77 cells/uL ABSOLUTE BASOPHILS (test cod e = 704-7) 51 cells/uL ABSOLUTE BLASTS (test code = 45480-8) DNR cells/uL ABSOLUTE NUCLEATED RBC (test code = 01442-8) DNR cells/uL NEUTROPHILS (test code = 770-8) 42.4 % BAND NEUTROPHILS (test code = 764-1) DNR % METAMYELOCYTES (test code = 740-1) DNR % MYELOCYTES (test code = 749-2) DNR % PROMYELOCYTES (test code = 783-1) DNR % LYMPHOCYTES (test code = 736-9) 46.0 % REACTIVE LYMPHOCYTES (test code = 69406-6) DNR % MONOCYTES (test code = 5905-5) 9.6 % EOSINOPHILS (test code = 713-8) 1.2 % BASOPHILS (test code = 706-2) 0.8 % BLASTS (test code = 709-6) DNR % NUCLEATED RBC (test code = 97283-1) DNR /100WBC COMMENT(S) (test code = 8251-1) DNR Herman BanksLIPID PANEL WITH REFLEX TO DIRECT LDL [ADDED]2017-02-13 00:00:00 * Test Item Value Reference Range Interpretation Comme nts CHOLESTEROL, TOTAL (test cod e = 2093-3) 282 mg/dL HDL CHOLESTEROL (test code = 2085-9) 102 mg/dL TRIGLYCERIDES (test code = 2571-8) 68 mg/dL LDL-CHOLESTEROL (test code = 13556-1) 166 mg/dL(calc) CHOL/HDLC RATIO (test code = 9830-1) 2.8 (calc) NON HDL CHOLESTEROL (test code = 99926-3) 180 mg/dL(calc) Herman Banks Consult Notes Date/Time Note Provider Source 2023-08-22 12:54:32 [id number]:54:32Associated Order(s): CONSULT ADULT OCCUPATIONAL THERAPY OT GENERAL EVALUATIONConsult received via [employer], EMR reviewed and evaluation completed 08/22/23. Patient referred to occupational therapy for evaluation and treatment. Patient is a 68 year old female who presents to hospital for Critical ischemia of extremity with history of revascularization of same extremity [I70.229, Z98.890]Critical limb ischemia of right lower extremity [I70.221] s/p ARTERIOGRAM (Right: Groin)FEMORAL-DISTAL BYPASS GRAFT (Right: Leg) 08/20/2023.Patient agreeable to participate in occupational therapy.Discharge Recommendations:Therapy Needs and Potential:- Patient would benefit from continued skilled occupational therapy services to address: Decline in basic activities of daily living, Decline in instrumental activities of daily living, Decreased strength, and Decreased endurance- Patient demonstrates good potential to improve and meet therapy goals with further skilled occupational therapy services.- Patient appears motivated to improve their B/IADLs and return to their previous level of function.- Patient demonstrates ability to tolerate at least 30-60 minutes of active participation in occupational therapy.- Patient able to follow commands: 1-step Yes, Multi-step Yes, Inconsistencies NoChallenges to Home Transition:- Increased risk of fallsEquipment Recommendations:Tub transfer bench, Grab bars, Hand held shower, Long handled sponge, Long handled field pipe lines supervisor, and Sock aidePLAN OF CARE: At least 2x/weekPrecautions:Weight bearing status: NAGeneral: PPE Utilized:[place], Gloves, Surgical mask, Fall, and IV lines.Bracing: N/ACurrent Occupational Performance and/or Treatment:AM-PAC 6 Clicks (Raw Score 0=Dependent, 24=Independent; Low function Raw Score 0= Dependent, 32=Independent):Raw Score - Daily Activity: 17T-Scale Score - Daily Activity: 37.26Feeding: Independent, Observed pt eat her lunch meal.Grooming: Independent, Pt able to perform grooming tasks bed levelUB Dressing: Minimal Assistance, Assisted pt with changing hospital gowns due to spillage on front of gownLB Dressing: Total Assistance, Pt unable to bend forward at this timeToilet Transfer: Supervision- Min A using rolling walker,Toileting Hygiene: Independent, Per pt reportFunctional Mobility: Bed mobility: deferred due to pt was just brought her lunch tray. Transfers: sit to stand and stand to sit: Supervision - Min A using rolling walker;Patient/caregiver educated on:Adaptive equipment , ADL training, Compensatory techniques/adaptive strategies, Deep breathing, Energy conservation, Fall prevention, General strengthening, Relaxation/breathing techniques, Role of OT, Safety awareness, and Towel/dowelPatient left semireclining in bed with call caceres in reach. Nursing present. Please, see full evaluation below for more detail.OT EVALUATION:68 year old female Admit date: 08/19/2023 Date of onset: 4Admit Diagnosis: Critical ischemia of extremity with history of revascularization of same extremity [I70.229, Z98.890]Critical limb ischemia of right lower extremity [I70.221]OT Diagnosis: Impaired BADL independence, Impaired IADL independence, Decreased endurance, and PainPMH:Past Medical History:Diagnosis DateHyperlipidemiaHypertensionPSH:Past Surgical History:Procedure Laterality DateARTERIOGRAM Right 08/20/2023Surgeon: Nilsa De Jesus MD; [facility] LOCATIONFEMORAL-DISTAL BYPASS GRAFT Right 08/20/2023Surgeon: Nilsa De Jesus MD; [facility] Right 08/2022right lower legPAIN:Pain Location: right leg, right foot, and surgical sitePain rating before treatment: 0, After treatment: 0Pain Management: Reports taking pain meds, Nursing Notified, Decreased movement aides in some pain reduction, and Use of assistive device aides in pain reduction during mobilityOCCUPATIONAL ROLES/HOME ENVIRONMENT:Home environment: Lives with friend who works much of the time, Single story home, and 5 steps to enter.Bathroom access: YesBathroom setup: ComboOccupation(s): unemployed and applying to medicaid. 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 prior to admission: Household ambulation, Community ambulation, Independent with BADLs, and Independent with IADLsSuspected ischemic or hemorraghic stroke patient: NoEquipment prior to admission: single point cane.PERFORMANCE SKILLS/FACTORS:UE Muscle Tone: bilateral WNLUE ROM: bilateral AROM WFLUE Strength: RYLAN UE WFLHand dominance: rightDexterity/Coordination: bilateral Fine motor skills Intact and bilateral Gross motor skills IntactEndurance - Sitting: Good Standing: Fair+Sitting Balance - Static: Good Dynamic: GoodStanding: Balance - Static Fair+ Dynamic: FairDizziness: NoSkin Integrity: defer full skin assessment to nursingSensation: bilateral Intact to light touchOral Motor: WFLCommunication: Able to verbalize needs Yes Other: N/AVision: WFL Yes Other: reading glassesHearing: good; no issues reportedCOGNITION:Orientation: person, place, date/time, and situationFollows Commands: 1-step Yes Multi-step Yes Inconsistencies NoSafety Awareness/Judgment: FairPROBLEM LIST: Decreased independence with ADL and Decreased strength/endurance for functional activityREHAB POTENTIAL/PROGNOSIS: goodPATIENT/FAMILY GOALS: To be able to walk and regain Previous level of Function with all ADL..TREATMENT/INTERVENTION PLAN: Functional motor treatment, Patient/Caregiver Education, Equipment recommendations, Daily living activities, Therapeutic exercises, and Neuromuscular Re-EducationGOAL(S): By discharge, patient will increase independence in daily living skills as follows:1 Patient will perform toilet transfer with independence.2 Patient will perform UB dressing with minimal assistance.3 Patient will perform LB dressing with total assistance.4 Patient will complete grooming tasks with supervision while standing at the sink.5 Patient will increase endurance for functional activity as evidenced by ability to sustain 20 minutes of active participation.6 Patient/caregiver will verbalize/demonstrate understanding/proficiency in the following home programs: Adaptive equipment , Compensatory techniques/adaptive strategies, Deep breathing, Energy conservation, Fall prevention, General strengthening, Relaxation/breathing techniques, and Towel/dowelPATIENT-FAMILY TEACHINGPatient provided with preferred teaching of verbal information and written information on Adaptive equipment , ADL training, Compensatory techniques/adaptive strategies, Energy conservation, Fall prevention, General strengthening, Relaxation/breathing techniques, Safety awareness, and Towel/dowel. Shows readiness to learn. Verbal instruction and Written material teaching provided. Individual is able to read and verbalizes understanding of teaching provided and needs reinforcement of teaching.Agustina Mi OTRTotal Timed Treatment Codes: 30 MinTotal Treatment Time: 40 MinPatient Complexity Level High - An occupational therapy evaluation of high complexity was completed using the above tests and measures. The following information was obtained: Various standardized and non-standardized assessments were used to identify at least 5 or more performance deficits related to physical, cognitive, or psychosocial skills that result in activity limitations and/or participation restrictions and Clinical decision-making is of high analytic complexity, which includes an analysis of the patient profile, analysis of data from comprehensive assessment(s), and consideration of multiple treatment options. Patient present with comorbidities that affect occupational performance. Significant modification of tasks or assistance (e.g., physical or verbal) with assessment(s) is necessary to enable patient to complete evaluation component. 66034-0Pgkbpyh qnouRX4046-69-75P77:30:27Consult [id number] 79|[id number] for patient jqqv65115-4Ajhhdxa noteLNNARRATIVEFormatted C-CDA narrative [id number] Shmuel [address]Xt[id number] ROARIOFHBLJMXNSOF9204-22-04U01:30:271.2.8 [id number]|[id number] [id number] September Shmuel [facility] 2023-08-21 09:53:00 [id number]:53:00Associated Order(s): CONSULT ADULT PHYSICAL THERAPY Patient agreeable to working with physical therapy. Patient met up in chair.Recommend nursing staff utilize rolling walker with minimal assist to safely assist patient with mobility out of the bed or chair.PHYSICAL THERAPY EVALUATIONConsult received, chart reviewed and evaluation complete this date. Patient is referred to PT for evaluation and treatment. Patient is a 68 year old female who presents to hospital for Critical ischemia of extremity with history of revascularization of same extremity [I70.229, Z98.890]Critical limb ischemia of right lower extremity [I70.221] s/p ARTERIOGRAM (Right: Groin)FEMORAL-DISTAL BYPASS GRAFT (Right: Leg) 08/20/2023.Discharge Recommendations:Therapy Needs and Potential:Patient would benefit from continued physical therapy services to address: decline in bed mobility decline in transfers decline in gait and/or balance decreased strength decreased endurance integument compromisePatient demonstrates good potential to improve and meet therapy goals with further physical therapy services.Patient appears motivated to improve their functional mobility and return to their previous level of function.Patient exhibits limited activity tolerance.Challenges to Home Transition:increased risk of fallsEquipment recommendations:rolling walkerCurrent Functional Status and/or Treatment:AM-PAC 6 Clicks (Raw Score 0=Dependent, 24=Independent; Low function Raw Score 0= Dependent, 32=Independent):Raw Score - Basic Mobility : 17T-Scale Score - Basic Mobility : 39.67Bed Mobility:Defer due to already out of bed and sitting on the recliner chair. As per RN reports, patient requires some assistance to perform this task.Transfers:Sit to stand: Minimal Assistance using Rolling WalkerStand to sit: Minimal Assistance using Rolling WalkerGiven verbal and tactile cues for hand and leg placement, correct sequencing and safety.Ambulation:Assisted patient with ambulation as follows: 30 feet using Rolling Walker and Minimal Assistance.Patient presenting with Step-to gait pattern. Antalgic gait, decreased step length and slow gait.Therapeutic exercise:patient educated in Adaptive equipment , Compensatory techniques/adaptive strategies, Edema management, Fall prevention, General strengthening, Positioning, Relaxation/breathing techniques, and Safety awareness., instructed patient in the following: ankle pumps, hip abduction/adduction, long arc quads, seated marching, patient/caregiver instructed to perform HEP 3 times per day, 2 sets of 20 repetitions., and patient/caregiver demonstrates understanding of instructions.Functional Outcome Measures: (Values within the past 12 hours)Tinetti Gait Score- # / 12Initiation of gait: No hesitancyStep length: Only on foot passes the otherFoot clearance: Both feet completely clear floorStep Symmetry: Step lengths equalStep continuity: Steps appear continuousPath: Mild/moderate deviation or uses ADTrunk: No sway, but flex of knees/ back or spreads armsWalking: Heels apartTinetti Gait Score: 8Tinetti Gait Score Interpretation: >= 7 - Low risk for fallsAfter session, patient up in chair. Call button provided. RN notified and aware.PLAN OF CARE:While in the hospital, PT will follow patient at least 3 times per week,once or twice a day, per patient's tolerance and needs.See below for complete details.Admit Date: 08/19/2023Hospital Diagnosis:Critical ischemia of extremity with history of revascularization of same extremity [I70.229, Z98.890]Critical limb ischemia of right lower extremity [I70.221] ARTERIOGRAM (Right: Groin)FEMORAL-DISTAL BYPASS GRAFT (Right: Leg)PT Diagnosis: Difficulty walking, Weakness, Malaise/fatigue, Pain, Abnormality of gait and balance, and Integument compromiseWeight Bearing Precaution: NAGeneral Precautions: PPE used:Gloves, General, Fall,IV lines, telemetryBracing/Cast present or required:N/APMH:Past Medical History:Diagnosis DateHyperlipidemiaHypertensionPSH:Past Surgical History:Procedure Laterality DateARTERIOGRAM Right 08/20/2023Surgeon: Nilsa De Jesus MD; [facility] 08/20/2023Surgeon: Nilsa De Jesus MD; [facility] Right 08/2022right lower legPrior Living Situation: in a house and with their friend,DME: Single Point Cane, Rolling Walker, Wheel ChairPrior level of Mobility: community ambulation, house hold ambulation, ambulates with no deviceSuspected ischemic or hemorraghic stroke:NoSubjective: patient on the chair and reports doing just okay and agreed to Physical TherapyPatient/Family Goals: to recover and walkPatient/Family verbalizes understanding of condition: YesPAIN:-Pain Description: aching-Pain Location: right leg and right foot-Pain rating before treatment: does not rate, After treatment: 5-Pain Management: Nursing Notified, Decreased movement aides in some pain reduction, and Repositioning ProvidedCOMMUNICATIONPrimary Language: EnglishAble to Verbalize needs: YesVision:good; no issues reported and reading glasses Hearing:good; no issues reportedORIENTATION/COGNITION:Oriented to: person, place, date/time, and situationAwake: Yes Alert: Yes Dizzy: Yes, minimal during gaitFollows Commands: Yes1-Step Yes Multi-Step YesInconsistent: NoNEUROLOGICALLight Touch: within functional limits bilateral LE,Heel to ruggiero: WFLTone: WNL BLEBALANCE:Sitting: Static: Excellent Dynamic: ExcellentStanding: Static: Fair+ Dynamic: FairRANGE OF MOTION: within functional limits bilateral LE, Right knee flexion AROM 0-80 degreesSTRENGTH: 5/5 (Normal), bilateral LE except Right quads 3/5, Right hip IP 3/5ENDURANCE: Fair+, Room airSKIN INTEGRITY: Surgical wound Right groin, Right medial thighPROBLEM LIST: Decline in bed mobility, Decline in gait, Decline in transfers, Decreased strength, Decreased endurance, Decreased balance, Pain, and Integument compromiseASSESSMENT: Patient is a 68 year old female seen secondary to the above listed diagnosis. Patient would benefit from continued PT to address the above listed deficits to maximize independence and safety with functional mobility.Rehabilitation Potential: goodGoals: The following goals are to maximize independence and safety with functional mobility to eventually return to prior living situation and prior functional status.Upon discharge, patient and/or family will demonstrate the followin. Supine to sit: Independent2. Sit to stand: Independent using Rolling Walker3. Independent with ambulation, Feet: 150 using least assistive device.4. Demonstrate or verbalize understanding of home exercise program in order to continue with their rehab on their own.Treatment Plan: Gait training, Therapeutic exercise, Transfer training, Balance training, Bed mobility training, Equipment needs assessment, Safety education, patient/caregiver education, and Neuromuscular Re-EducationPATIENT EDUCATION: Patient provided with preferred teaching of verbal information and demonstration on role of PT, plan of care, . Shows readiness to learn. Verbal instruction and Demonstration teaching provided. Individual is able to read and verbalizes understanding of teaching provided and accurately returns demonstration of skill.Total Time Tx Codes in Minutes: 29 minTotal Treatment Time in Minutes: 44 minWild Griffin PT, DPTLicense # [id number] Duncan Regional Medical Center [id number] kafwOM1606-20-31P83:05:51Consult noteTXT1.2.840.615342.1.13.104.2.7.2.7278 79|[id number] for patient hrcl38617-9Zmdravo noteLNNARRATIVEFormatted C-CDA narrative [id number] Luyun PT[address] [id number] WXDMKHTWTMFAOAYSH0521-33-98R82:05:511.2.8 40.468843.1.72.3.15|1.2.840.091747.1.13.1 [id number] Wild Griffin PT [facility] 2023-08-20 10:31:47 9757-87-54Q89:31:47Associated Order(s): CONSULT SURGICAL CO-MANAGEMENT (SCM) Images from the original note were not included.Surgical Co-Management (SCM) Consult ServiceConsultation NotePatient: Paola GargN: [id number] of Consult: 4Date of Service: 4Referring Physician: Ankit Salomon MD.Reason for Consult: Medical co-managementHPI: Paola Garg is a 68 year old female with a PMH of hypertension, hypothyroidism, hyperlipidemia, questionable history of atrial fibrillation, who was admitted to hospital under vascular surgery for 3-week history of worsening right lower extremity pain. She denies any chest pain, shortness of breath, no recent fevers or chills. According the patient she has a history of clot in her lower extremity and that is what she takes Xarelto. Patient underwent right femoral to peroneal bypass with reversed GSV. Patient was seen by me in the ICU.Home meds:Lovastatin 20 mg dailyXarelto 20 mg dailyMethimazole 5 mg dailyamlodipine 5 mg dailyCoreg 6.25 mg dailyTessalon Perles 100 mg 3 times daily.HISTORIES (personally reviewed by me):Active Ambulatory ProblemsDiagnosis Date NotedNo Active Ambulatory ProblemsResolved Ambulatory ProblemsDiagnosis Date NotedNo Resolved Ambulatory ProblemsPast Medical History:Diagnosis DateHyperlipidemiaHypertensionPast Surgical History:Procedure Laterality DateSTENT Right 08/2022right lower legSocial HistorySocioeconomic HistoryMarital status: WidowedSpouse name: Not on fileNumber of children: Not on fileYears of education: Not on fileHighest education level: Not on fileOccupational HistoryNot on fileTobacco UseSmoking status: Some DaysTypes: CigarettesSmokeless tobacco: NeverTobacco comments:2 Ciggs a weekSubstance and Sexual ActivityAlcohol use: Not on fileDrug use: Not on fileSexual activity: Not on fileOther Topics ConcernNot on fileSocial History NarrativeNot on fileSocial Determinants of HealthFinancial Resource Strain: Not on fileFood Insecurity: Not on fileTransportation Needs: Not on filePhysical Activity: Not on fileStress: Not on fileSocial Connections: Not on fileIntimate Partner Violence: Not on fileHousing Stability: Not on fileNo family history on file.Home medications:Prior to Admission medicationsMedication Sig Start Date End Date Taking? Authorizing ProviderhydroCHLOROthiazide 12.5 mg capsule TAKE 1 CAPSULE BY MOUTH EVERY DAY 08/05/20 De La Torre, Sendil K.H., MDAMLODIPINE 5 mg tablet TAKE 1 TABLET BY MOUTH EVERY DAY 06/14/20 De La Torre, Sendil K.H., MDCARVEDILOL 12.5 mg tablet TAKE 1 TABLET BY MOUTH TWICE A DAY WITH MEALS 06/14/20 De La Torre, Sendil K.H., MDatorvastatin 20 mg tablet Take 1 tablet by mouth at bedtime. 06/13/20 De La Torre, Sendil K.H., MDfamotidine 20 mg tablet TAKE 1 TABLET BY MOUTH EVERY 12 HOURS FOR 10 DAYS 07/21/18 Doctor Unassigned, No NameCurrent Medications:Scheduled meds:amLODIPine, 5 mg, DAILYaspirin, 81 mg, DAILYatorvastatin, 40 mg, QHScarvediloL, 12.5 mg, BID MEALSpantoprazole, 40 mg, DAILYIV meds:heparin 25,000 Units/250 mL IV infusion for DVT, Last Rate: Stopped (08/20/23 0745)PRN meds:heparin 1,000 unit/mL 10,000 Units in NaCl 0.9% (NS) 1,000 mL OR irrigation, , PRNacetaminophen, 650 mg, O5MMXQdajzlno 1000 unit/mL, 3,000 Units, FOR REBOLUSINGheparin 1000 unit/mL, 3,000 Units, FOR REBOLUSINGheparin 25,000 Units/250 mL IV infusion for DVT, 0-2,350 Units/hr, TITRATEondansetron, 4 mg, B9HQFSdaaREFgV, 50 mg, X3NVCILZTJBDXTJ:No Known AllergiesREVIEW OF [id number] or more systems reviewed, negative except as mentioned in HPIPHYSICAL EXAMBP (!) 137/91 (BP Location: Left arm, Patient Position: Lying right side) | Pulse 95 | Temp 36.7 ?C (98 ?F) (Oral) | Resp 16 | Ht 1.676 m (5' 5.98") | Wt 72.6 kg (160 lb 0.9 oz) | SpO2 100% | BMI 25.85 kg/m?Constitutional:General: Patient is not in acute distress.Appearance: Normal appearance.Cardiovascular:Rate and Rhythm: Normal rate and regular rhythm.Pulses: Normal pulses.Heart sounds: Normal heart sounds. No murmur heard.Pulmonary:Effort: Pulmonary effort is normal. No respiratory distress.Breath sounds: Normal breath sounds. No wheezing.Abdominal:Soft, nontender nondistended. Normal bowel sounds.Musculoskeletal:General: No swelling or tenderness. Normal range of motion.Skin:General: Skin is warm.Coloration: Skin is not jaundiced.Findings: No lesion.LABS/IMAGING - reviewed, recent results as below:Lab ResultsComponent Value Date/TimeNA 122 (L) 08/20/2023 03:56 AMK 4.4 08/20/2023 03:56 AMCA 9.1 08/20/2023 03:56 AMCL 98 08/20/2023 03:56 AMBUN 5 (L) 08/20/2023 03:56 AMCREAT 0.60 08/20/2023 03:56 AMEGFR 97.3 08/20/2023 03:56 AMGLU 90 08/20/2023 03:56 AMTCO2 20 (L) 08/20/2023 03:56 AMWBC 6.85 08/20/2023 03:56 AMRBC 3.65 (L) 08/20/2023 03:56 AMPLT 354 08/20/2023 03:56 AMHGB 10.7 (L) 08/20/2023 03:56 AMHCT 30.7 (L) 08/20/2023 03:56 AMALB 3.7 08/19/2023 02:22 PMTPRO 7.7 08/19/2023 02:22 PMBILIT 0.7 08/19/2023 02:22 PMALT 13 08/19/2023 02:22 PMAST 29 08/19/2023 02:22 PMALKPHOS 101 08/19/2023 02:22 PMPHOS 4.0 08/20/2023 03:56 AMMG 2.0 08/20/2023 03:56 AMPTINR 2.1 08/19/2023 03:57 PMPTPAT 24.1 (H) 08/19/2023 03:57 PMAPTTPAT >150 (HH) 08/20/2023 05:46 AMMost Recent UA:No results found for: "UPROTEIN", "UPH", "UGLUCOSE", "UKETONES", "UBILI", "UBLOOD", "UUROBILIN", "ULEUKEST", "UNITRITE", "USPGRAV"Radiology (48 HRS):CT ANGIOGRAM ABDOMEN/PELVISResult Date: 08/20/2023Occluded right superficial femoral artery. In the stent occlusion of the distal right superficial femoral artery stent. Bilateral lower extremity atherosclerotic disease with details as above. Multiple liver lesions, some characteristic for hemangiomas and some incompletely characterized. Recommend correlation with outside prior imaging or report (none available in patient medical record). If none is available, a dedicated CT or MRI liver can be performed. 1.1 cm indeterminate right adrenal nodule. This can also be evaluated at the same time with liver lesions.CT ANGIOGRAM LOWER EXTREMITY BILATERAL W CONTRASTResult Date: 08/20/2023Occluded right superficial femoral artery. In the stent occlusion of the distal right superficial femoral artery stent. Bilateral lower extremity atherosclerotic disease with details as above. Multiple liver lesions, some characteristic for hemangiomas and some incompletely characterized. Recommend correlation with outside prior imaging or report (none available in patient medical record). If none is available, a dedicated CT or MRI liver can be performed. 1.1 cm indeterminate right adrenal nodule. This can also be evaluated at the same time with liver lesions.ASSESSMENT & PLAN:Active Medical Conditions :Right foot critical limb ischemiaAcute on chronic hyponatremiaChronic, stable conditions:HypertensionHyperlipidemiaAtri al fibrillation on Xarelto.HyperthyroidismPatient is hyponatremic with sodium of 122. Only available values from 2019 which was 130.Discontinued hydrochlorothiazide.Will order urine studies to be collected.Continue with home medications as currently ordered.. Switch to Xarelto when appropriate from vascular surgery perspective.DVT Prophylaxis: Per PrimaryCode Status: Full codeDispo: Baljinder Hammonds MD 08/20/2023 10:31 AMAssistant Professor Internal MedicinePortions of this note were created using a voice-recognition transcribing system.Typographical errors and incorrect words or phrases may have been missed during proofreading. Please interpret accordingly. 73452-1Bplemot mrbaLS3015-55-12Y13:11:34Consult noteTXT1.2.840.370583.1.13.104.2.7.2.7278 79|[id number] for patient ezya57366-4Lvjnisc noteLNNARRATIVEFormatted C-CDA narrative text[id number] EMMANUELFXLPVHPVWEWACZFNM6519-84-99P26:11:341.2.8 40.632686.1.72.3.15|1.2.840.587660.1.13.1 04.2.7.2.727879_[id number] [facility] History and Physical Notes Date/Time Note Provider Source 2023-11-26 11:59:32 5476-49-91S09:59:32Formatting of this no te might be different from the original.Vascular Surgery H&P68F w/ PMH of HTN, HLD, PAD s/p right femoral to peroneal bypass with cryovein 08/20/2023 with threatened bypass presents for right leg angiogram, possible angioplasty/stent, possible thrombolysis catheter, and all indicated procedures.Patient was examined and has no wounds or ulcers, no rest pain, able to ambulate.Risks of bleeding, infection discussedNilsa De Jesus MDVascular Surgery 79916-7Ejebypv and physical ucffEU4915-53-22O56:05:08History and physical noteTXT1.2.840.030200.1.13.104.2.7.2.609306|21 [id number] for patient ebtr37715-6Ndsufpo and physical noteLNNARRATIVEFormatted C-CDA narrative text[address] [id number] BOJORQUEZFEITNSTSXZGF3176-51-51U96:05:081.2.840.427923. 1.72.3.15|1.2.840.193076.1.13.104.2.7.2.634379 _[id number] [facility] 2023-08-19 23:26:16 1411-73-49L21:26:16Formatting of this no te is different from the original.Images from the original note were not included.Vascular Surgery History & PhysicalName: Paola GargDOB: 1955MRN: [id number] Complaint: Right leg pain, SFA stent occlusionHistory of Present Illness:Paola Garg is a 68 year old woman with a medical history of PAD s/p right lower extremity stenting (OSH, est 1 year ago), HTN, HLD, atrial fibrillation vs other arrythmia (questionable per patient, however is on home Xarelto) who presents with a 3 week history of worsening right lower extremity pain. She reports that for the last several months she was having long distance claudication symptoms however she felt this was her baseline and did not feel concerned. About 3 weeks ago, right leg and foot pain began to worsen to the point where it was present at rest and she began to have intolerable pain with even short walking distances. She sought ER care where arterial duplex demonstrated right SFA-popliteal stent occlusion with monophasic flow distally. She was subsequently transferred to [place] for higher level of careAt the time of ER presentation, she reports she was having difficulty moving the toes in her right foot. However currently, she reports that she feels her motor function in her right foot is improving and her pain is improving. She reports she feels she would be able to walk short distances albeit in pain if necessary.Right lower extremity stenting was performed about 1 year ago at outside institution. She does take a statin medication however she reports that she has not taken any antiplatelet therapy. She does take therapeutic dose of Xarelto, however she reports that she is unsure if she takes this for her peripheral arterial disease or because she reports that she has been told her "heart has skipped beats" in the past. She has smoked about 10 cigarettes a day since her 20's, quit for several months last year however started smoking again recently. She denies any development of wounds on her bilateral lower extremities. She reports she has never had an NC and denies any coronary interventions or PCI in the past. She denies fevers, chills, nausea, vomiting, or other recent illness. She does report she has been told she has arterial disease in the left leg as well, however denies any symptoms at this time and state she has declined offered interventions in the past as she is more concerned about her right legAt time of evaluation, she is afebrile and hemodynamically stable. Motor and sensory function intact in the bilateral lower extremities. She reports she feels her symptoms have improved over the evening. She is able to bear weight on the right leg although it is painful, and can plantarflex and dorsiflex at the ankle. Echo from 12/2018 reviewed with normal EF and no significant valvular disease.Medical History:Past Medical History:Diagnosis DateHyperlipidemiaHypertensionSurgical History:Past Surgical History:Procedure Laterality DateSTENT Right 08/2022right lower legFamily History:No family history on file.Social History:Social HistorySocioeconomic HistoryMarital status: WidowedTobacco UseSmoking status: Some DaysTypes: CigarettesSmokeless tobacco: NeverTobacco comments:2 Ciggs a weekAllergies:No Known AllergiesReview of Systems:(-)=Negative, (+)=PositiveROS per HPIPhysical Examination:Vitals:08/19/23 2030BP: 120/84Pulse: 83Resp: 18Temp: 36.4 ?C (97.5 ?F)SpO2: 97%General: No acute distress, behaviorally appropriate, QLr3ESCRA: EOM intactCardio: Regular rate and rhythm.Respiratory: Not in distress on room airAbd: Soft, non tenderExtremities: No wound or ulcers in the bilateral lower extremities. Rubor in the right foot.Neuro: No focal neurological deficits, CN II-XII grossly intact. Motor and sensory function equal and intact in the bilateral lower extremities.Psych: Behaviorally appropriateVascular Exam:Femoral Pulses: palpable bilaterallyRight lower extremity: Monophasic popliteal signal. No obtainable DP or PT doppler signalLeft lower extremity: Multiphasic DP signalLab Data (last 24 hours):Chemistry CBC LFTs Coags, aohkt067 (L) 92 (L) 4 (L) 80 5.57 12.8 423 (H) AST: 29 ALT: 13 PT: 24.1 (H) INR: 2.14.0 23 0.54 36.9 AP: 101 T Rylan: 0.7 PTT: 44 (H)eGFR: 99.8 Ca: 9.3 % Luc: 55.5 Prot: 7.7 Alb: 3.7 Lact: 1.82Mg: - PO4: - ANC: 3.09 Procal: -Respiratory Cardiac-|-|-|-|- D-dimer: - pBNP: - Trop I: -CK: - CKMB: -Media:Bilateral feetAssessment and Plan:Paola Garg is a 68 year old woman with a medical history as noted, who presents with a 3 week history of worsening right lower extremity pain present at rest and intolerable pain walking short distances. Right leg SFA-popliteal stenting performed 1 year ago, arterial duplex performed demonstrating stent occlusion with monophasic flow distally. She is a current smoker.Development of ischemic rest pain consistent with critical limb ischemia and will require planning of intervention for revascularization to the right lower extremity- Admit to Vascular Surgery- Heparin GTT- Increased home dose statin to Atorvastatin 40 mg- Start ASA 81 mg- Obtain CT Angiogram abdomen pelvis with runoff- TTE- Telemetry- Type and screen- SCM consult- Will likely proceed with diagnostic arteriogram in AM. NPO past midnight, consent to be obtained- Further plan of surgical revascularization pending review of imaging and results of arteriogramDiscussed with faculty security and privacy consultant Dr. Valdemar Sevilla, СЕРГЕЙGY-2Vascular Surgery Resident ssociated attestation - Ankit Salomon MD - 08/20/2023 10:03 AM CST I agree with Miguel Sevilla MD resident note as written . I actively participated in the decision-making process. Please see the resident's note for additional details.Ankit Salomon MD, RPVI, FSVSVascular Surgery [id number] and physical [id number], Shariq1.2.840.721966.1.13.104.2.7.2.455930Uujo kKpsqyrEE8725-31-70T16:03:49History and physical noteTXT1.2.840.929019.1.13.104.2.7.2.761735|20 [id number] for patient pdto81996-2Kgwqdnv and physical noteLNNARRATIVEFormatted C-CDA narrative text[id number] TORRESOYXCMDIKLPQW2922-76-14C11:03:491.2.840.636698. 1.72.3.15|1.2.840.822220.1.13.104.2.7.2.727402 _[id number] [facility] Notes Date/Time Note Provider Source 2023-12-10 15:17:07 4616-90-25M55:17:07Formatting of this no te might be different from the original.Patient was contacted and she has removed the dressing and it is healed and doing well. Re-instructed if anything open no soaking in a bathtub or submerging .Patient verbalized understanding and confirmed f/u appt 12/10 97921-8Omwuwwext encounter DrbmOJ0987-05-32Y68:19:13Telephone encounter NoteTXT1.2.840.045116.1.13.104.2.7.2.71757 9|[id number] for patient doyj53212-7IrnvAPQOCHTZUPVVuumpmtzq C-CDA narrative [id number] SCHNEIDER[id number] ZUNIGAJKDWVDRXZZMWPHZO3549-51-74D67:19:131.2.840 .008512.1.72.3.15|1.2.840.912919.1.13.104. 2.7.2.727879_[id number] Agustina Funez RN [facility] 2023-12-09 00:00:00 Glnr2UJ6b1C8KjLEUV5krbFdk3tuYeqRU+PA1DEu ZO l6HRcLSf3RSg82NtlsL3EC1402-20-71W94:00:00+ +- +| Plan Activity | Plan Date |+ + +| Clonidine 0.1mg PO x1 now-no adverse reactions noted | 2017-02-12 || Repeat BP in 15-20 mins | || EKG, CBC, CMP, lipids | || d/c' d lisinopril-hctz | || Continue amlodipine, carvediolol, and hctz will consider weaning if patient is | || still c/o hypotensive episodes | || Keep BP log and return to clinic in 1 week or sooner for any concerns, changes | || in condition, or worsening s/s | || Recommend ER for elevated BP and/or poorly controlled BP and abnormal EKG- AMA | || form signed | |+ + +| Discussed the importance of smoking cessation. | 2023-12-09 || Discussed the impact of smoking on HTN and overall health | || Discussed NIcotine gum - over the counter purchase at her pharmacy - follow | || package directions. | |+ + +| Refer to cardiology | 2017-02-17 || To ER immediately for any NC or stroke-like symptoms as discussed- verbalized | || understanding | |+ + +| Discussed diet modifications. | 2023-12-09 || Recommend healthy eating with foods from a variety of food groups, appropriate | || portion sizes, and few sugary snacks/drinks. | |+ + +| BP 139/86 today | 2023-12-09 || Requests med refill today - states she is compliant with medications. . | || Denies any concerns at this time. | || Does not take BP at home - pt encouaged to monitor BP at home and record - | || bring BP log to all visits for review. | |+ + +| Will empirically treat for pneumonia | 2017-06-15 || Zpak | || Cough drops, OTC expectorant, warm fluids, honey for cough | || Recommend hydration | || Recommend rest | || Ibuprofen per manager clinical services's recommendation for fever/pain | || RTC in 3 days is no improvement | || To ER for any concerns, changes in condition, or worsening s/s | |+ + +| Zpak | 2017-06-15 || Nasal saline wash/meng pot | || Avoid decongestant 2/2 HTN | || Recommend hydration | || Recommend rest | || Ibuprofen per manager clinical services's recommendation for fever/pain | || RTC in 3 days is no improvement | || To ER for any concerns, changes in condition, or worsening s/s | |+ + +| Recommend OTC antinhistamine | 2017-06-15 || Recommend nasal saline wash | || Recommend hydration | || Recommend avoiding triggers | || To ER for any concerns, changes in condition, or worsening s/s | |+ + +| RTO for WWE | 2018-09-27 || CBC today | || Refer for pelvic/TV US | |+ + +| Therapeutic lifestyle changes - Encourage healthy diet, increase exercise and | 2023-12-09 || watch weight. | |+ + +| Low fat, low sugar, low sodium, low cholesterol diet and exercise 4 or 5 times | 2020-02-29 || a week for 30 min/day | |+ + +| Stopped smoking 2 months ago | 2023-12-09 || Pt states she is doing well and has "looked into purchasing the patches" but | || states they were "too expensive". | || Discussed NIcotine gum - over the counter purchase at her pharmacy - follow | || package directions. | |+ + +| Risks vs benefits discussed. Consent signed. UPT - negative EMB Procedure: | 2021-11-26 || Betadine placed. Single tooth tenaculum applied to anterior cervix. EMB pipelle | || passed x 2 with minimal tissue obtained. Tenaculum removed. No bleeding noted. | || Specimen sent to pathology | |+ + +| RTO if bleeding resumes | 2020-10-14 || Consider referral to Dr Hooper for polyp removal | |+ + +| Guidance provided | 2023-11-23 || await all results | || RTC 1 year WAE | |+ + +| Consent signed UPT - negative Cervical polyp visualized. Betadine applied to | 2021-12-12 || cervical/vaginal vault. Polypectomy performed using straight forceps in | || twisting fashion. Polyp collected in fragments. Minimal bleeding controlled. | || Patient tolerated well. Specimen sent to pathology; results pending RTO in 2 | || wks for follow up | |+ + +| See plan above | 2021-12-25 |+ + +| COVID, FLU, RSV | 2022-08-04 || Start bromfed take as directed | || Stop robitussin | |+ + +| resolved | 2023-08-10 |+ + +| Recommend at least 30-60 min of exercise 5x/week as able given current physical | 2023-12-09 || limitations | |+ + +| Increase water intake to half body weight. | 2023-12-09 || limit sodium, pastas, breads, increase vegetable intake. | || | || | || | || | || | || 1) Limit carbs, fats, caffeine, juices | || 2) Eat more fruits, veggies, proteins | |+ + +| CBC, CMP | 2022-10-02 || await results | |+ + +| Lipid panel today | || await results | |+ + +| Hepatitis | 2022-10-02 || await results | |+ + +| TSH | 2022-10-02 || await results | |+ + +| Low dose CT | 2022-10-02 |+ + +| Tdap | 2022-10-02 || Shingrix | |+ + +| FIT | 2022-10-02 || await results | |+ + +| TSH, Free T4, T3, thyroid peroxidase | 2022-11-04 || RTC 1 month for follow-up | |+ + +| right hand crystal | 2022-11-04 || await results | || 1 month for follow-up | |+ + +| Thyroid US today | || await results | || RTC 1 month for follow-up | |+ + +| reviewed and discussed | 2023-08-13 |+ + +| continue Methimazole - refill requested today and sent | 2023-07-02 || TSH | || RTC 1 months for follow-up | |+ + +| Requests refill today of Methimazole | 2023-12-09 || Reports that on Thursday - 12/14/23, she is going to [facility] - thyroid | || biopsy. | || No new concerns voiced today | || | || | || Going Thursday12/14/23 to [facility] - thyriod biopsy | |+ + +| Reviewed and discussed | 2023-02-03 |+ + +| REFERRAL CARDIOLOGY | 2023-05-26 |+ + +| Stopped smoking 2 months ago | 2023-12-09 || Pt states she is doing well and has "looked into purchasing the patches" but | || states they were "too expensive". | || Discussed NIcotine gum - over the counter purchase at her pharmacy - follow | || package directions. | |+ + +| Pt reports that the left lower leg has "slow blood flow even though taking | 2023-12-09 || Cayden". | || Going [facility] Thursday12/11/2023 - to check the right leg graft function | || States she takes the gabapentin as directed. | |+ + +| In hospital: NA 116, K 2.8 >> treated and was in WNL at discharge | 2023-08-10 || Chlorthalidone stopped at hospital>>> most likely 2/2 hypokalemia | || CMP | |+ + +| Follow discharge summary | 2023-08-10 || RTC if symptoms worsen or persist | |+ + +| RTO CMP 5 days for follow-up | 2023-08-13 || If remains low or worsens>>> will send to hospital for evaluation | |+ + +| Critical limb ischemia of right | 2023-12-09 || | || RTC 1 month for follow-up | |+ + +| Pt reports that the right lower leg has a graft and she has a follow-up appt at | 2023-12-09 || [facility] Thursday12/11/2023 - to check the right leg graft function. | || Denies any new concerns or problems at this time. | || NO swelling in RLE noted - skin warm to touch - good motion noted. | |+ + +| Referral for bilateral screening mammogram | 2023-11-23 || Pt to RTO in one month for follow-up | |+ + +| Will obtain A1c | 2023-11-23 |+ + +32607-2Zylu of TreatmentLNCARE PLANTXTSFA|[id number]|2.16.840.1.386481.1 0.20.22.2.10AVAvailable for patient adsxPncfdzoFlvjduxnnCRXOh91 Section NarrativeNARRATIVEFormatted C-CDA narrative textSFAStines GreggDavid [facility]20[facility]-14T00:00:00 Herman GreggDavid [facility] 2023-11-30 09:52:33 6259-34-76F32:52:33Formatting of this no te might be different from the original.Copied from [facility] #[id number]. Topic: Clinical - Medical Advice>> Nov 30, 2023 9:50 AM Patient Senior Recruitment Consultant wrote:Paola Garg is a 68 year old femalePatient is calling asking if she can take the dressing off her surgical site. Surgery [phone] (home) 67505-9Bpbdsoisx encounter IwecZW4454-74-40C17:12:20Telephone encounter NoteTXT1.2.840.504685.1.13.104.2.7.2.24233 9|[id number] for patient daga20650-5MginWHWXZLEFRLKVzwvobqkf C-CDA narrative [id number] M Garcia[address] HyzcOzk[id number] GEZVWHHBZNLHZPGY0128-55-53W53:12:201.2.840 .496507.1.72.3.15|1.2.840.126343.1.13.104. 2.7.2.727879_[id number] Leilani Arias [facility] 2023-11-26 12:50:38 8019-48-29F53:50:38Formatting of this no te might be different from the original.Patient Name: Paola GargMRN: [id number] Operative NoteDate of Procedure: 4Pre-Operative Diagnosis: PADPost-Operative Diagnosis: PADProcedures:1) US guided L SECURITY CHIEF MUSEUM access2) Aortogram, RLE diagnostic angiogram3) Selective catheterization of right common femoral arterySurgeon(s): Dr. Nilsa De Jesus, Resident- Dr. Kavya Kangesthesia: MACWound Classification: cleanAntibiotic Prophylaxis: AncefSpecimens Sent: noneOperative Procedure in Detail:After informed consent was obtained, patient was brought into the operating room and placed supine. Procedure was performed under IV sedation. IV ancef was administered preoperatively and time out was conducted with agreement from all the team members. Bilateral groins were prepped and draped in standard sterile fashion.Left SECURITY CHIEF MUSEUM was visualized to be patent on ultrasound and needle access was visualized with ultrasound image saved. Ultrasound was used to access the Left common femoral artery using seldinger technique with a micropuncture set which was exchanged to a 6-Yoruba sheath. A 0.035" glide wire was introduced into the aorta, and an Omni flush catheter was introduced over the wire to the aorta. Aortogram and RLE angiogram once angle glide catheter was used to cross over to the contralateral side.Diagnostic:Aortogram: patent with patent bilateral renal arteriesIliac arteries: patent bilateral iliac arteries.Right SECURITY CHIEF MUSEUM patentRight profunda artery patentRight SFA occludedRight popliteal artery occludedRight PT artery occludedRight AT artery occludedRight Peroneal artery reconstitutes proximally and patent to the footIntervention:6000 units of heparin was given intravenously and redosed every 30 minutes. 6Fr destination sheath was placed down to the SECURITY CHIEF MUSEUM. Glidewire Advantage .035 wire was used along with glidewire to get into the right femoral peroneal bypass but wire was not able to traverse into the bypass. All wires and catheters were removed from the patient. Angioseal closure device was used for the left SECURITY CHIEF MUSEUM without any issues. Left groin was hemostatic with no hematoma. Dermabond was applied. Patient was transferred to PACU laying flat in stable condition.Complications: noneDrains / Tubes / Catheters: noneHardware / Implants: noneBlood / Fluid Losses: 10ccPost-Operative Condition: stablePractitioner Name: Nilsa De Jesus [place] 91007-8Qmkrzjw Surgical operation kvwhZB2734-36-20A60:48:33Surgery Surgical operation noteTXT1.2.840.205791.1.13.104.2.7.2.00217 9|[id number] for patient asjt53755-5SkodNDHNATCZKUQZaptcbkrf C-CDA narrative text[address] Hmql[id number] UBNWGERTKNRFPIWB2202-71-63N65:48:331.2.840 .300305.1.72.3.15|1.2.840.912876.1.13.104. 2.7.2.727879_[id number] [facility] 2023-11-23 00:00:00 gX3ZCIorG4xyY4ICaNcKV5zSxKCuJaHcBzKyPivc U6 sgFpqGHdVZMQQHcmCAUgH78108-84-03Y67:00:00+ +- +| Plan Activity | Plan Date |+ + +| Clonidine 0.1mg PO x1 now-no adverse reactions noted | 2017-02-12 || Repeat BP in 15-20 mins | || EKG, CBC, CMP, lipids | || d/c' d lisinopril-hctz | || Continue amlodipine, carvediolol, and hctz will consider weaning if patient is | || still c/o hypotensive episodes | || Keep BP log and return to clinic in 1 week or sooner for any concerns, changes | || in condition, or worsening s/s | || Recommend ER for elevated BP and/or poorly controlled BP and abnormal EKG- AMA | || form signed | |+ + +| Discussed the importance of smoking cessation. | 2023-11-23 || Discussed the impact of smoking on HTN and overall health | || Recommend smoking cessation. | |+ + +| Refer to cardiology | 2017-02-17 || To ER immediately for any NC or stroke-like symptoms as discussed- verbalized | || understanding | |+ + +| Discussed diet modifications. | 2023-11-23 || Will obtain updated LIPID profile | |+ + +| not at goal | 2023-11-23 || Denies needing med refills today - states she is compliant with medications. . | || Today states she did not take BP meds until an hour before she came to the | || office | || Obtain CMP, CBC | |+ + +| Will empirically treat for pneumonia | 2017-06-15 || Zpak | || Cough drops, OTC expectorant, warm fluids, honey for cough | || Recommend hydration | || Recommend rest | || Ibuprofen per manager clinical services's recommendation for fever/pain | || RTC in 3 days is no improvement | || To ER for any concerns, changes in condition, or worsening s/s | |+ + +| Zpak | 2017-06-15 || Nasal saline wash/meng pot | || Avoid decongestant 2/2 HTN | || Recommend hydration | || Recommend rest | || Ibuprofen per manager clinical services's recommendation for fever/pain | || RTC in 3 days is no improvement | || To ER for any concerns, changes in condition, or worsening s/s | |+ + +| Recommend OTC antinhistamine | 2017-06-15 || Recommend nasal saline wash | || Recommend hydration | || Recommend avoiding triggers | || To ER for any concerns, changes in condition, or worsening s/s | |+ + +| RTO for WWE | 2018-09-27 || CBC today | || Refer for pelvic/TV US | |+ -+ +| Therapeutic lifestyle changes. | 2019-08-26 |+ + +| Low fat, low sugar, low sodium, low cholesterol diet and exercise 4 or 5 times | 2020-02-29 || a week for 30 min/day | |+ + +| Stopped smoking 2 months ago | 2023-11-23 || Pt states she is doing well and has "looked into purchasing the patches" but | || states they were "too expensive". | |+ + +| Risks vs benefits discussed. Consent signed. UPT - negative EMB Procedure: | 2021-11-26 || Betadine placed. Single tooth tenaculum applied to anterior cervix. EMB pipelle | || passed x 2 with minimal tissue obtained. Tenaculum removed. No bleeding noted. | || Specimen sent to pathology | |+ + +| RTO if bleeding resumes | 2020-10-14 || Consider referral to Dr Hooper for polyp removal | |+ + +| Guidance provided | 2023-11-23 || await all results | || RTC 1 year WAE | |+ + +| Consent signed UPT - negative Cervical polyp visualized. Betadine applied to | 2021-12-12 || cervical/vaginal vault. Polypectomy performed using straight forceps in | || twisting fashion. Polyp collected in fragments. Minimal bleeding controlled. | || Patient tolerated well. Specimen sent to pathology; results pending RTO in 2 | || wks for follow up | |+ + +| See plan above | 2021-12-25 |+ + +| COVID, FLU, RSV | 2022-08-04 || Start bromfed take as directed | || Stop robitussin | |+ + +| resolved | 2023-08-10 |+ + +| Discussed importance of medication compliance | 2022-09-24 |+ + +| CBC, CMP | 2022-10-02 || await results | |+ + +| Lipid panel today | || await results | |+ + +| Hepatitis | 2022-10-02 || await results | |+ + +| TSH | 2022-10-02 || await results | |+ + +| Low dose CT | 2022-10-02 |+ + +| Tdap | 2022-10-02 || Shingrix | |+ + +| FIT | 2022-10-02 || await results | |+ + +| TSH, Free T4, T3, thyroid peroxidase | 2022-11-04 || RTC 1 month for follow-up | |+ + +| right hand xray | 2022-11-04 || await results | || 1 month for follow-up | |+ + +| Thyroid US today | || await results | || RTC 1 month for follow-up | |+ + +| reviewed and discussed | 2023-08-13 |+ + +| continue Methimazole - refill requested today and sent | 2023-07-02 || TSH | || RTC 1 months for follow-up | |+ + +| 30-day courtesy refill Methimazole | 2023-11-23 || continue Methimazole - refill requested today and sent | || TSH | || RTC 1 months for follow-up | |+ + +| Reviewed and discussed | 2023-02-03 |+ + +| REFERRAL CARDIOLOGY | 2023-05-26 |+ + +| Stopped smoking 2 months ago | 2023-11-23 || Pt states she is doing well and has "looked into purchasing the patches" but | || states they were "too expensive". | |+ + +| Pt reports that the left lower leg has "slow blood flow even though taking | 2023-11-23 || Cayden". Pt adds that she will be going into the hospital on 11/26/23 for | || further evaluation of the status of the blood flow. | || RTC after vascular appointment. | || Obtain CBC | |+ + +| In hospital: NA 116, K 2.8 >> treated and was in WNL at discharge | 2023-08-10 || Chlorthalidone stopped at hospital>>> most likely 2/2 hypokalemia | || CMP | |+ + +| Follow discharge summary | 2023-08-10 || RTC if symptoms worsen or persist | |+ + +| RTO CMP 5 days for follow-up | 2023-08-13 || If remains low or worsens>>> will send to hospital for evaluation | |+ + +| Critical limb ischemia of right | 2023-09-29 || | || RTC 1 month for follow-up | |+ + +| Pt reports that the right lower leg has "slow blood flow even though taking | 2023-11-23 || Cayden". Pt adds that she will be going into the hospital on 11/26/23 for | || further evaluation of the status of the blood flow. | |+ + +| Referral for bilateral screening mammogram | 2023-11-23 || Pt to RTO in one month for follow-up | |+ + +| Will obtain A1c | 2023-11-23 |+ + +27528-0Xqgr of TreatmentLNCARE PLANTXTSFA|SOC-[id number]|2.16.840.1.765977.1 0.20.22.2.10AVAvailable for patient curtEfiktxxLrlkbwwyrDDXYq79 Section NarrativeNARRATIVEFormatted C-CDA narrative textSFAStines Santana [facility]2024-05-28T00:00:00 Herman Santana [facility] 2023-11-17 10:00:00 0051-85-24H15:00:00Formatting of this no te is different from the original.Images from the original note were not included.Venipuncture collection performed by clean technique on the left anticubitus. Total of 1 attempts were made. Slight pressure and a bandage/dressing were applied to the site(s). The patient experienced no complications. The following specimens were processed according to instructions and [facility] lab order on 11/17/2023:LT BLUESST 1REDLAVPPTDK GREEN (LiHep)DK GREEN (SodH)GRAYDK BLUE (K2)DK BLUE (S)ACDBlood CultureNIPT/NTD 05044-7Qnmxa QkmdEQ8518-66-84K10:52:41Nurse NoteTXT1.2.840.503854.1.13.104.2.7.2.88964 9|[id number] for patient voxa80059-6Dpwtl NoteLNNARRATIVEFormatted C-CDA narrative [id number] MJWSSJNOZSUYUNIQ7853-47-76D84:52:411.2.840 .988181.1.72.3.15|1.2.840.149655.1.13.104. 2.7.2.727879_[id number] [facility] 2023-11-16 16:00:00 3211-55-61J61:00:00Addended by: CHARLEY GOMEZ MD on: 11/16/2023 04:56 PMModules accepted: Level of Service 96190-9Ngzdgoni ImtpxsstSI8954-77-96D19:56:57Addendum DocumentTXT1.2.840.275153.1.13.104.2.7.2.7 46098|[id number] for patient wbzh89107-3SdhsGEPBXGPFZYSKsmtjlrwn C-CDA narrative [id number] TIONDNUVMFNJPNGC3161-10-13B24:56:571.2.840 .889626.1.72.3.15|1.2.840.866977.1.13.104. 2.7.2.727879_[id number] [facility] 2023-11-05 10:49:11 5203-43-04E53:49:11Formatting of this no te might be different from the original.Spoke with patient. Tried to assist her over the phone. Monitor still not connecting. Patient was advised to call [employer] She would rather come to [place]. Clinic staff will try to assist patient when she arrives. 81848-2Rntylzcdk encounter TylwEP4862-30-91P29:52:18Telephone encounter NoteTXT1.2.840.926716.1.13.104.2.7.2.17467 9|[id number] for patient xsmw31422-6SztoJEDJVFWAZVYBicvciheo C-CDA narrative dzar373862844Uucp Sheavly RN[address] [id number] UQXICVMBSZZNCGBT8679-82-09E85:52:181.2.840 .963118.1.72.3.15|1.2.840.788951.1.13.104. 2.7.2.727879_[id number] Antonia Galvez RN [facility] 2023-11-05 07:21:52 7806-86-81J58:21:52Formatting of this no te might be different from the original.Paola Garg is a 68 year old female patient calling having error message on her heart monitor, replaced electrode, but still having error message. Please call [phone] signed by Pat Benoit at 11/05/2023 7:23 AM QRM88906-6Cmtewampr encounter IdmyQR4854-32-47J24:23:21Telephone encounter NoteTXT1.2.840.514167.1.13.104.2.7.2.38469 9|[id number] for patient kplu47068-2XeqcZWXQNAAMYOZPihatifqu C-CDA narrative wjsq602287399Ilflq Step[id number] ZUCPDTRNOFJZKFTB1293-34-24O43:23:211.2.840 .268082.1.72.3.15|1.2.840.461680.1.13.104. 2.7.2.727879_[id number] Pat Benoit [facility] 2023-11-03 16:00:00 5455-77-27O05:00:00Formatting of this no te might be different from the original.In the event that you have any needs for this patient monitor please contact [facility] at . This includes supplies and any equipment issued at the appointment. A final report is processed after the company receives the monitor back. It takes approximately 10-14 business days for your doctor to receive this report. You will be contacted with results once it is delivered to your doctor.Return monitor with provided mailing instructions on: -day event monitor applied to patient, tolerated well. Baseline tracing sent/confirmed by company. Instructed on recording manual events, wear, care and return of device; understanding verbalized via teach back. Monitor to be returned to ([facility]) on 12/04/2023. 37942-0Hphej HulhHJ1034-55-56T90:43:28Nurse NoteTXT1.2.840.502098.1.13.104.2.7.2.67870 9|[id number] for patient bdyi77729-7Fbpim NoteLNNARRATIVEFormatted C-CDA narrative sdqu222375869Rfsvvrvjj D Garcia MA[address] RlbvNktzgysjsTmunblhstGBIG2918586314KQDSCT MZFEBXTPYXVFEJSA4180-09-31K53:43:281.2.840 .889913.1.72.3.15|1.2.840.238365.1.13.104. 2.7.2.727879_[id number] Haylee Arias MA [facility] 2023-09-24 16:31:38 0865-01-78J35:31:38Formatting of this no te might be different from the original.Ally will send new orders to be reviewed and signed. Dr. De Jesus in clinic on 09/25/23. Will fax back as soon as possible. She thanked me for the return call. 67991-0Zxphipcmp encounter CybkRE1887-69-13W36:32:50Telephone encounter NoteTXT1.2.840.427082.1.13.104.2.7.2.41780 9|[id number] for patient ollx53553-4AywcBVXONQXAXHYDawbumtkl C-CDA narrative vqbl965632002Wlrlm A Pope [address] XwqwFnlsyucaoOmmmafaxkQBMM9152141866QJKXDR XNZBHICWQHJJQKUX9564-96-31E04:32:501.2.840 .441600.1.72.3.15|1.2.840.436159.1.13.104. 2.7.2.727879_[id number] Radha Mendez [facility] 2023-09-24 16:02:13 7485-30-30Z34:02:13Formatting of this no te might be different from the original.Copied from [facility] #[id number]. Topic: Clinical - Paperwork/Forms>> Sep 24, 2023 3:59 PM Patient Senior Recruitment Consultant wrote:Paola [facility]arg is a 68 [facility] orders being faxed over to their office and whether or not they are the PP & OT Home health orders for PTDavid Liza from [facility] states they have been waiting on paperwork since 09.01.23.Please advise 90340-1Zarpnkxyd encounter CjarYU1850-73-94C01:02:40Telephone encounter NoteTXT1.2.840.665818.1.13.104.2.7.2.72484 9|[id number] for patient xvex55070-3TvxmFTHFRCXVXJPOginhkbuc C-CDA narrative vnsm840468357Ehmt Y [id number] IGWAUIJWRXCKDZQK6017-50-54F89:02:401.2.840 .404406.1.72.3.15|1.2.840.381132.1.13.104. 2.7.2.727879_[id number] Alexia Quinteros [facility] 2023-09-21 14:53:58 7319-25-00B70:53:58Formatting of this no te might be different from the original.Paperwork is in hand, signed by Vascular PA. Returned via fax. Radha Mendez LVN 09/21/2023 2:56 PM 37731-2Adxrrtiir encounter FkagBQ8635-61-46C31:13:30Telephone encounter NoteTXT1.2.840.272694.1.13.104.2.7.2.61921 9|[id number] for patient afxd41627-9JslwZFKIIVGWXVPAfbnckleq C-CDA narrative lxzg179027535Zxmao A Pope [address]TXTX7755577555USUSGA SOGTPEECKWSFYZHV0651-30-87M63:13:301.2.840 .111322.1.72.3.15|1.2.840.897062.1.13.104. 2.7.2.727879_[id number] Radha Mulligan [facility] 2023-09-21 14:28:08 6147-77-10Q82:28:08Formatting of this no te might be different from the original.Copied from [facility] #[id number]. Topic: Clinical - Medical Advice>> Sep 21, 2023 2:27 PM Patient Senior Recruitment Consultant wrote:Paola Garg is a 68 year old femaleB[facility] is requesting an update on the home health paperwork that was supposed be be signed off on 09/02/23. She states she has not received anything and that she would like to speak with Radha again. Please reach out to assist. 68360-9Gtwmfpqel encounter BwuvYL3450-00-99U29:31:43Telephone encounter NoteTXT1.2.840.165998.1.13.104.2.7.2.92279 9|8945172242BYTdnbqqmmz for patient xlwq63192-8OfybCZRBYLOIRMLFwoftssus C-CDA narrative rcoq892325808RsunvAlfa [place]TXTX7755577555USUSGA TOTUFJUZTSIPDWFX5272-13-47I68:31:431.2.840 .220055.1.72.3.15|1.2.840.735840.1.13.104. 2.7.2.727879_[id number] Alfa Gilmorerrsam Lima [facility] 2023-09-02 14:41:35 2945-49-03F46:41:35Formatting of this no te might be different from the original.I called and confirmed with Ally that Dr. De Jesus will sign off on the Home Health paperwork on Thursday09/02/23. She voiced thanks for the update. 21292-4Uxghtuqmc encounter KxghEA8733-97-56K08:42:22Telephone encounter NoteTXT1.2.840.225590.1.13.104.2.7.2.84574 9|6567195037KZPcfhzayxg for patient aruy05218-7OsaiABYKGZNRFQZTbvldzcan C-CDA narrative mvod361732606Lhxen A Pope [address]TXTX7755577555USUSGA EHEYFTTJFYZMMSYM1690-47-56V70:42:221.2.840 .523915.1.72.3.15|1.2.840.238918.1.13.104. 2.7.2.727879_[id number] Radha Mendez DISPLAY COORDINATOR [facility] 2023-09-01 09:48:48 4508-50-89D54:48:48Formatting of this no te might be different from the original.Copied from [facility] #[id number]. Topic: Clinical - Paperwork/Forms>> Sep 01, 2023 9:47 AM Patient Senior Recruitment Consultant wrote:Paola Garg is a 68 year old femaleBanner/[facility] De Jesus - will doctor be signing orders, dos 08/20Caller Contact: Trsrnhefeinwns signed by Christy Kendall at 09/01/2023 9:49 AM WOE41160-5Bnwniyvex encounter XfjuCT5560-43-61A64:49:22Telephone encounter NoteTXT1.2.840.105873.1.13.104.2.7.2.18387 9|6063161569NCDnfkzngsl for patient drll47296-3GrfsRXPLFHVKJGPLvqwouzjv C-CDA narrative byai287035888Bwrof [address] HfdjLtbxmsvyrWhrhfqzlrDWKQ7528803163AJDRRX TVISPAJGBBFGAOMQ1388-70-33C61:49:221.2.840 .990947.1.72.3.15|1.2.840.473391.1.13.104. 2.7.2.727879_[id number] Christy Kendall [facility] 2023-08-25 10:28:09 9048-61-00F40:28:09Formatting of this no te is different from the original.Images from the original note were not included.TRANSITIONAL CARE MANAGEMENT ASSESSMENT08/25/2023Paola GargCcfai436796RWinv Crick is a 68 year old Black or female was admitted on 08/19/23 [facility]. She was discharged on 08/24/23 with discharge disposition of HR- Routine Discharge.Admitting Physician: Merry Salomon Diagnosis:Critical ischemia of extremity with history of revascularization of same extremity I70.229, Z98.890Linked EpisodesType: Episode: Status: Noted: Resolved: Last update: Updated by:TRANSITION OF CARE TCM Active 08/25/2023 08/25/2023 10:23 AM Elizabeth Vale, JBComments:RAIMUNDO Bnu-kdhv-vt-face outreach documentation:Discharge AssessmentChart Assessed: 08/25/23TCM Outreach Completed: 08/25/23Do you have a few minutes to speak with me about how you are doing at home?: Yes (Pt reports doing "Okay".)Discharge InstructionsDo you understand your at-home instructions?: YesMedicationsHave you filled your prescriptions and do you have them in your home? : YesDo you know how to take your medications?: YesCan you provide me with the names or descriptions of any bgol-lrl-svmhwxx or supplements you are currently taking?: Yes (none)SuppliesDid you receive applicable home medical supplies/equipment?: N/AFollow Up AppointmentHas a follow up appointment been scheduled?: Yes (Vasc clinic and cardio appt already scheduled.)Do you have any questions about your follow up appointments?: NoAre you able to get to your appointment? Who will be taking you?: Yes (reports having transportation or will use medical transport.)Home Health AssistanceHas the home health nurse contacted you since you've been home?: NoHHA Interventions:: Contacted agencyDischarge Location:Home Health location: [address] [address] (P) [phone] (F) [phone].CM calling agency requesting referral status. Per Beatrice, fax was not received. Beatrice requesting referral to be send to fax:[phone] faxed referral to all 3 numbers provided.1554- CM returning call to Beatrice with [facility] regarding referral status as per pt has been approved. Beatrice confirmed pt was approved and will be reaching out to pt. CM advised d/c summary is now complete and will be faxing over to [facility]. D/C summary faxed.Survey - RecognitionIs there anything you would like to share about your recent hospitalization, or anyone you would like to recognize?: NoDo you have any suggestions for improvement?: NoDo you have any other questions or concerns at this time?: NoFuture Appointments:Future AppointmentsProvider Department Dept Phone09/14/2023 4:30 PM Charley Vega MD [facility] Vascular Surgery, [facility] [phone]/ 1:30 PM Manav De La Torre MD [facility] CardiologyPatricia [place] [phone] signed by Elizabeth Vale RN at 08/25/2023 4:03 PM YYB49441-0Ydgokawqf encounter TsohMP6359-61-30M75:03:25Telephone encounter NoteTXT1.2.840.250578.1.13.104.2.7.2.92746 9|[id number] for patient xjal06575-1NvlyMRVHLUFBILMUeanlxsgt C-CDA narrative hogq228026432Wgamh Lerma RN[address] HnywCunjdnoywUqbjmrwfbYGHI2554279242RESVFJ JWPLVMLQWUCBQYJU3636-90-26B79:03:251.2.840 .590050.1.72.3.15|1.2.840.580728.1.13.104. 2.7.2.727879_[id number] Elizabeth Vale RN [facility] 2023-08-24 18:49:54 2754-93-48S31:49:54Formatting of this no te might be different from the original.Problem: Discharge PlanningGoal: Adequate for discharge08/24/20231848 by Zenaida House RNOutcome: Adequate for discharge08/24/2023 1050 by Zenaida House RNOutcome: Progressing as expectedGoal: Effective communication08/24/20231848 by Zenaida House RNOutcome: Adequate for discharge08/24/2023 1050 by Zenaida House RNOutcome: Progressing as expectedProblem: Infection RiskGoal: Absence of infection08/24/2023 1849 by Zenaida House RNOutcome: Adequate for discharge08/24/2023 1050 by Zenaida House RNOutcome: Progressing as expectedProblem: Falls, Risk ofGoal: Absence of falls08/24/2023 1849 by Zenaida House RNOutcome: Adequate for discharge08/24/2023 1050 by Zenaida House RNOutcome: Progressing as expectedProblem: PainGoal: Control of pain at or below patient's documented comfort goal08/24/2023 1849 by Zenaida House RNOutcome: Adequate for discharge08/24/2023 1050 by Zenaida House RNOutcome: Progressing as expectedGoal: Reduction in pain sensation08/24/2023 1849 by Zenaida House RNOutcome: Adequate for discharge08/24/2023 1050 by Zenaida House RNOutharrison: Progressing as expected 72619-3Rpuw of care asjfGT8566-58-08U25:49:59Plan of care noteTXT1.2.840.074405.1.13.104.2.7.2.15589 9|[id number] for patient ozrm27517-6JdheBYKTKUICHXNBzestozmt C-CDA narrative [id number] E Brister RN[address] IbdtXazwuimvrEkalkkimrUXHJ6599130186AJKXYA ZLBILJUOEQBKFHHM0413-17-17O71:49:591.2.840 .392883.1.72.3.15|1.2.840.894324.1.13.104. 2.7.2.727879_[id number] Zenaida House RN [facility] 2023-08-24 10:51:00 1579-05-77W99:51:00Formatting of this no te might be different from the original.Problem: Discharge PlanningGoal: Adequate for dischargeOutcome: Progressing as expectedGoal: Effective communicationOutcome: Progressing as expectedProblem: Infection RiskGoal: Absence of infectionOutcome: Progressing as expectedProblem: Falls, Risk ofGoal: Absence of fallsOutcome: Progressing as expectedProblem: PainGoal: Control of pain at or below patient's documented comfort goalOutcome: Progressing as expectedGoal: Reduction in pain sensationOutcome: Progressing as expected 12155-1Vjvg of care gmffEI5527-30-03M02:51:04Plan of care noteTXT1.2.840.797525.1.13.104.2.7.2.26366 9|[id number] for patient qmvj94726-5ZogdFURVHHSCOZVCvhaciwkh C-CDA narrative textUT[address] Ir[id number] CVZOEPFTCNFUZFOL5327-88-30Z73:51:041.2.840 .422705.1.72.3.15|1.2.840.639350.1.13.104. 2.7.2.727879_[id number] [facility] 2023-08-23 23:02:14 4995-33-83U39:02:14Formatting of this no te might be different from the original.Problem: Discharge PlanningGoal: Adequate for dischargeOutcome: Progressing as expectedGoal: Effective communicationOutcome: Progressing as expectedProblem: Infection RiskGoal: Absence of infectionOutcome: Progressing as expectedProblem: Falls, Risk ofGoal: Absence of fallsOutcome: Progressing as expectedProblem: PainGoal: Control of pain at or below patient's documented comfort goalOutcome: Progressing as expectedGoal: Reduction in pain sensationOutcome: Progressing as expected 71820-8Aihg of care gvwaFW0460-77-52I58:02:18Plan of care noteTXT1.2.840.252234.1.13.104.2.7.2.41772 9|[id number] for patient kgmd55622-5AwhdWJDPUYIHARMMfgagjrcj C-CDA narrative text[id number] XXFVYPICFUQJAGIY9496-21-53M75:02:181.2.840 .761975.1.72.3.15|1.2.840.081995.1.13.104. 2.7.2.727879_[id number] [facility] 2023-08-23 11:44:41 2857-39-20X27:44:41Formatting of this no te might be different from the original.Problem: Discharge PlanningGoal: Adequate for dischargeOutcome: Progressing as expectedGoal: Effective communicationOutcome: Progressing as expectedProblem: Infection RiskGoal: Absence of infectionOutcome: Progressing as expectedProblem: Falls, Risk ofGoal: Absence of fallsOutcome: Progressing as expectedProblem: PainGoal: Control of pain at or below patient's documented comfort goalOutcome: Progressing as expectedGoal: Reduction in pain sensationOutcome: Progressing as expected 78192-4Zymn of care lcdcLT5222-84-97N35:44:45Plan of care noteTXT1.2.840.187200.1.13.104.2.7.2.62839 9|[id number] for patient osdu38693-3PtsiPDELZQHWYALHfmwhdtsj C-CDA narrative [id number] MQZIAGNQHHVGRBPY5774-66-91S20:44:451.2.840 .745085.1.72.3.15|1.2.840.865200.1.13.104. 2.7.2.727879_[id number] [facility] 2023-08-23 03:11:41 9561-13-81G84:11:41Formatting of this no te might be different from the original.Problem: Discharge PlanningGoal: Adequate for dischargeOutcome: Progressing as expectedGoal: Effective communicationOutcome: Progressing as expectedProblem: Infection RiskGoal: Absence of infectionOutcome: Progressing as expectedProblem: Falls, Risk ofGoal: Absence of fallsOutcome: Progressing as expectedProblem: PainGoal: Control of pain at or below patient's documented comfort goalOutcome: Progressing as expectedGoal: Reduction in pain sensationOutcome: Progressing as expected 99381-7Tlbi of care fyocKU9513-34-79S19:11:45Plan of care noteTXT1.2.840.369177.1.13.104.2.7.2.58623 9|[id number] for patient oeov97931-1AskaFNHGWHPRPFVHmfmptzij C-CDA narrative [address] Vw[id number] OLQFXBPXMKYWIJRF8906-03-82E82:11:451.2.840 .886454.1.72.3.15|1.2.840.354512.1.13.104. 2.7.2.727879_[id number] [facility] 2023-08-22 12:42:53 5568-50-76M48:42:53Formatting of this no te might be different from the original.Problem: Discharge PlanningGoal: Adequate for dischargeOutcome: Progressing as expectedGoal: Effective communicationOutcome: Progressing as expectedProblem: Infection RiskGoal: Absence of infectionOutcome: Progressing as expectedProblem: Falls, Risk ofGoal: Absence of fallsOutcome: Progressing as expectedProblem: PainGoal: Control of pain at or below patient's documented comfort goalOutcome: Progressing as expectedGoal: Reduction in pain sensationOutcome: Progressing as expected 87672-5Tooy of care ccliLZ5133-74-25Z37:42:59Plan of care noteTXT1.2.840.904769.1.13.104.2.7.2.82068 9|[id number] for patient npse21640-1DgwkQELRJOPOEFIWutcvuggw C-CDA narrative [id number] R Hanegan [id number] EYMEXILYZPPIUJWV0009-32-27E45:42:591.2.840 .344341.1.72.3.15|1.2.840.109992.1.13.104. 2.7.2.727879_[id number] Brittany Isbell [facility] 2023-08-22 00:08:20 9534-19-83N82:08:20Formatting of this no te might be different from the original.Problem: Discharge PlanningGoal: Adequate for dischargeOutcome: Progressing as expectedGoal: Effective communicationOutcome: Progressing as expectedProblem: Infection RiskGoal: Absence of infectionOutcome: Progressing as expectedProblem: Falls, Risk ofGoal: Absence of fallsOutcome: Progressing as expected 15281-5Uwdp of care tjffQT0574-07-48W48:08:22Plan of care noteTXT1.2.840.580905.1.13.104.2.7.2.23665 9|[id number] for patient avba46825-0SkmkANINSSVMFSNQljgjtpdq C-CDA narrative [id number] Sustaita RN[id number] UJKVNPBAAXMOLYMZ4744-78-79U64:08:221.2.840 .708453.1.72.3.15|1.2.840.254267.1.13.104. 2.7.2.727879_[id number] Young Polancota JB [facility] 2023-08-20 08:32:26 1271-99-42Y02:32:26Formatting of this no te might be different from the original.Patient Name: Paoal GargMRN: [id number] Operative NoteDate of Procedure: 4Pre-Operative Diagnosis: Right leg critical limb ischemiaPost-Operative Diagnosis: same as preopProcedures:1) Right femoral to peroneal artery bypass with reversed GSV2) Diagnostic angiogram of right leg, catheterization in right external iliac arterySurgeon(s): Dr. Nilsa De Jesus, Resident- Dr. Andrew RdzAnesthesia: generalWound Classification: cleanAntibiotic Prophylaxis: AncefSpecimens Sent: noneOperative Procedure in Detail:After informed consent was obtained, patient was brought into the operating room and placed in supine position. The procedure was performed under general endotracheal anesthesia. The right leg and bilateral groins were prepped and draped in standard sterile fashion. IV ancef was administered preoperatively and time out was conducted with agreement from all team members.A transverse incision parallel to and one finger breadth below inguinal ligament was made in right groin overlying the common femoral artery pulse with careful dissection down to the femoral artery. Vessel loops were placed around the common femoral artery. Micropuncture sheath was placed into the right common femoral artery with catheter in the external iliac artery and diagnostic angiogram of right leg showed patent iliac artery, patent profunda, occluded SFA, patent peroneal artery to the foot with a posterior branch to the PT at the ankle.A longitudinal incision was performed on the medial aspect of the proximal leg. Through this incision the saphenous vein was carefully dissected out and retracted to the side with vessel loop.The incision was deepened through subcutaneous tissue and fascia was incised and popliteal fossa entered. A self retaining retractor was placed deeper in the wound and the peroneal artery was sharply dissected. Next, the GSV was carefully dissected out with multiple skin incisions along the medial thigh. Side branches were tied off with silk ties. Once ligated GSV was removed, it was tested on the back table and any holes repaired with 6-0 prolene. Vein distended well and was in good condition.A subsartorial tunnel was created from the popliteal space up to the groin using a [place] tunneler and umbilical tape placed in the tunnel. The patient was given 80U/kg heparin bolus intravenously with redosing every 30 minutes. The femoral artery was clamped with vascular clamps. 11 blade scalpel was used for femoral arteriotomy and fall scissors to extend the arteriotomy. The vein was brought up and the reversed end of the vein was spatulated to fit the arteriotomy on the right femoral artery which was anastomosed with 6-0 prolene. Forward bleeding from external iliac artery was checked, and back bleeding from distal femoral artery also flushed.The vein graft was then marked and fed into the tunnel confirming no kinking. Peroneal artery was clamped and arteriotomy made with 11 blade and extended with fall scissors. 6-0 Prolene was used to construct the distal anastomosis with good forward bleeding from the vein and good back bleeding seen from peroneal artery. All clamps were released and both anastomosis checked for hemostasis. Thrombin gelfoam was used to control needle hold bleeding. Angiogram of right leg showed patent bypass, no kinking of the bypass, and good peroneal outflow to the foot. Doppler signal of distal peroneal artery distal to the anastomosis had triphasic signal and PT signal in the foot had good doppler signals. Wounds were irrigated. Surgiflo was placed into the wounds. The subcutaneous tissue in the groin and medial leg were closed in multiple layers with 3-0 vicryl. 4-0 monocryl was used for running subcuticular closure in right groin and dermabond applied. Leonard were used to close the skin in the medial thigh and leg incisions. Gauze and tegaderm were placed. Patient was extubated and was transferred to PACU in stable condition.Complications: noneDrains / Tubes / Catheters: foleyHardware / Implants: noneBlood / Fluid Losses: 200ccPost-Operative Condition: stablePractitioner Name: [place] [address]-5Agtzrnn Surgical operation kxwbQD0512-69-11J67:55:42Surgery Surgical operation noteTXT1.2.840.273056.1.13.104.2.7.2.81606 9|[id number] for patient kvdj01725-8IxsxOVISDXIUCBYSmlacmfip C-CDA narrative text[address] [id number] FRANCISGAQJFZHYOEUOYFSP9177-27-03I74:55:421.2.840 .180260.1.72.3.15|1.2.840.039846.1.13.104. 2.7.2.727879_[id number] [facility] 2023-08-20 01:08:46 7634-52-24Q43:08:46Formatting of this no te might be different from the original.Problem: Discharge PlanningGoal: Adequate for dischargeOutcome: Progressing as expectedGoal: Effective communicationOutcome: Progressing as expectedProblem: Infection RiskGoal: Absence of infectionOutcome: Progressing as expectedProblem: Falls, Risk ofGoal: Absence of fallsOutcome: Progressing as expected 23413-6Etyy of care nczhZT7249-81-82K98:08:49Plan of care noteTXT1.2.840.057949.1.13.104.2.7.2.05156 9|[id number] for patient rbzq86800-0QkhaRZKWYEGLTXPIkhvinefv C-CDA narrative text[id number] EIUXLUWMIZNUWCCA0909-11-16R04:08:491.2.840 .385088.1.72.3.15|1.2.840.674271.1.13.104. 2.7.2.727879_[id number] [facility] 2023-08-19 17:54:40 9308-50-28K55:54:40Formatting of this no te might be different from the original.Patient transferred to [facility] for diagnosis of arterial leg occlusionsPatient agrees to transfer/admit plan and verbalized understanding of plan of care, family aware of planPatient awake alert, oriented, resp reg unlabored, skin w/d PIV patent, no s/s infiltration noted,No adverse reaction to medications given while in ED.Report given to [facility] EMS personnel 06499-6Vmdsypjaz department DdwoJJ3710-04-19L57:55:26[facility] department NoteTXT1.2.840.631428.1.13.104.2.7.2.85077 9|[id number] for patient miqy46856-3EntiWIEIVQWBMBAZylndcljn C-CDA narrative phnh092020438Ubbxfb M Leibee RN[id number] CRLOIASLIMBSKONN3035-69-87V57:55:261.2.840 .536600.1.72.3.15|1.2.840.702429.1.13.104. 2.7.2.727879_[id number] Eddie Valenzuela RN [facility] 2023-08-19 17:54:22 1500-49-13U64:54:22Formatting of this no te might be different [place] the [place] [address]-5Jkpphoitf department YeznIR4949-35-29T00:54:38[facility]mem[facility] department NoteTXT1.2.840.829796.1.13.104.2.7.2.42499 9|[id number] for patient dcbk77341-3GnwcMAKTZRJJAOYWnywaohqt C-CDA narrative text[id number] ERSGWCRDCZYZFRBR2659-99-52U56:54:381.2.840 .963427.1.72.3.15|1.2.840.073446.1.13.104. 2.7.2.727879_[id number] [facility] 2023-08-19 16:31:16 1070-67-32Y05:31:16Formatting of this no te might be different from the original.City called with updated ETA 45 min from now 50733-2Goatryzts department ZzgaFQ5932-60-02W90:31:37[facility] department NoteTXT1.2.840.760838.1.13.104.2.7.2.54049 9|[id number] for patient othx13740-2HvhwIKSBZHMKJRVFnhsyflqb C-CDA narrative stjx782372457Qikjk [address] Id[id number] ZXDDNJSFGCLFFJSD1988-88-11X82:31:371.2.840 .167947.1.72.3.15|1.2.840.364257.1.13.104. 2.7.2.727879_[id number] Tianna GonzálesAbdiaziz [facility] 2023-08-19 13:06:00 1639-61-95P37:06:00Formatting of this no te might be different from the original.Right foot is red and swollen for 3 weeks. Reports the pain is getting worse and wanted to get checked out. Denies fever chills or body aches. 10903-3Rvnnujgpo department Triage ytalLM8308-57-47V29:06:31Emer[facility] department Triage noteTXT1.2.840.915171.1.13.104.2.7.2.82870 9|[id number] for patient qgui29556-4Fnhdtwgeg department NoteLNNARRATIVEFormatted C-CDA narrative [id number] Nasir SCHNEID[address] Sx[id number] NHYQUSJEGDWCMZEY9143-39-25U54:06:311.2.840 .240448.1.72.3.15|1.2.840.742825.1.13.104. 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 She reports she believes her foot is infected for the last 3 weeks. She was seen at outside hospital and a He for pain control but no antibiotics. She has a history of "clots" in the leg and has gotten stents. Denies fevers. Reports that she is unable to walk without assistance and has been using a wheelchair.Past Medical History/Immunizations:Past Medical History:Diagnosis DateHyperlipidemiaHypertensionTetanus received in last 5 years: UnknownChildhood immunizations: Uq-pl-gkftTuhqozvdy:No Known AllergiesPast Social History:Tobacco UseSome Days; Types: CigarettesSmokeless Tobacco: Never used smokeless tobacco.Comments: 2 Ciggs a weekPast Surgical History:History reviewed. No pertinent surgical history.Review of Systems:Review of SystemsConstitutional: Negative for chills and fever.HENT: Negative for congestion, rhinorrhea and sore throat.Eyes: Negative for pain and visual disturbance.Respiratory: Negative for cough and shortness of breath.Cardiovascular: Negative for chest pain and leg swelling.Gastrointestinal: Negative for abdominal distention, abdominal pain, diarrhea, nausea and vomiting.Genitourinary: Negative for dysuria, vaginal bleeding and difficulty urinating.Musculoskeletal: Positive for gait problem and joint swelling. Negative for back pain.Skin: Negative for rash and wound.Neurological: Negative for seizures, weakness and headaches.Psychiatric/Behavioral: Negative for confusion and self-injury.Endocrine: Negative for polydipsia and polyphagia.Physical Exam:ED Triage Vitals [08/19/23 1306]Weight 72.6 kg (160 lb)Actual or estimatedHeight 1.676 m (5' 6")BP 113/82Pulse 105Resp 20Temp 36.7 ?C (98.1 ?F)Temp srcSpO2 100 %Measured onPhysical ExamVitals and nursing note reviewed.Constitutional:Appearance: Normal appearance. She is well-developed. She is not ill-appearing or toxic-appearing.HENT:Head: Normocephalic and atraumatic.Right Ear: External ear normal.Left Ear: External ear normal.Nose: Nose normal.Mouth/Throat:Mouth: Mucous membranes are moist.Pharynx: Oropharynx is clear.Eyes:General:Right eye: No discharge.Left eye: No discharge.Conjunctiva/sclera: Conjunctivae normal.Pupils: Pupils are equal, round, and reactive to light.Cardiovascular:Rate and Rhythm: Normal rate and regular rhythm.Pulses: Normal pulses.Heart sounds: Normal heart sounds. No murmur heard.Pulmonary:Effort: Pulmonary effort is normal. No respiratory distress.Breath sounds: Normal breath sounds.Abdominal:General: Abdomen is flat. Bowel sounds are normal. There is no distension.Palpations: Abdomen is soft.Musculoskeletal:General: No deformity. Normal range of motion.Cervical back: Normal range of motion.Right lower leg: Edema present.Right foot: Swelling and tenderness present. Abnormal pulse.Comments: No pulse noted with DopplersLymphadenopathy:Cervical: No cervical adenopathy.Skin:General: Skin is warm and dry.Capillary Refill: Capillary refill takes less than 2 seconds.Neurological:Mental Status: She is alert and oriented to person, place, and time. Mental status is at baseline.Cranial Nerves: No cranial nerve deficit.Sensory: No sensory deficit.Motor: No weakness.Psychiatric:Mood and Affect: Mood normal.Behavior: Behavior normal.Thought Content: Thought content normal.Judgment: Judgment normal.Radiology:XR FOOT <3 VW RIGHTFinal ResultHISTORY: Pain and swelling.FINDINGS: AP and lateral views of the right foot showed vertical andoblique radiolucent lines through the shaft portion of the terminalphalanxof the great toe, suspicious for hairline fractures.Diffuse osteopenia, degenerative arthritis of the intertarsal joints andfirst tarsometatarsal joint noted. A metallic anchor is seen in thecalcaneum, probably utilized for Achilles tendon repair. A prominent 9 mmheel spur noted. Deformity in the distal end of the proximal and middlephalanges of the fifth digit noted, likely secondary to remote surgery.CONCLUSIONS: Suspect nondisplaced hairline fractures in terminal phalanxofright great toe. Please correlate this finding with clinical history andphysical examination.Lab Results:Lab ResultsCBC WITH DIFF - AbnormalResult Value Ref RangeWBC 5.57 4.30 - 11.10 10*3/?LRBC 4.42 3.93 - 5.25 10*6/?LHGB 12.8 11.6 - 15.0 g/dLHCT 36.9 35.7 - 45.2 %MCV 83.5 80.6 - 95.5 fLMCH 29.0 25.9 - 32.8 pgMCHC 34.7 31.6 - 35.1 g/dLRDW-SD 43.8 39.0 - 49.9 fLRDW-CV 14.5 12.0 - 15.5 %PLT 423 (*) 166 - 358 10*3/?LMPV 8.7 (*) 9.5 - 12.9 fLNRBC/100 WBC 0.0 0.0 - 10.0 /100 WBCsNRBC x10^3 <0.01 10*3/?LGRAN MAT (NEUT) % 55.5 %IMM GRAN % 0.40 %LYMPH % 28.0 %MONO % 12.0 %EOS % 3.2 %BASO % 0.9 %GRAN MAT x10^3(ANC) 3.09 1.88 - 7.09 10*3/uLIMM GRAN x10^3 <0.03 0.00 - 0.06 10*3/uLLYMPH x10^3 1.56 1.32 - 3.29 10*3/uLMONO x10^3 0.67 0.33 - 0.92 10*3/uLEOS x10^3 0.18 0.03 - 0.39 10*3/uLBASO x10^3 0.05 0.01 - 0.07 10*3/uLCOMP. METABOLIC PANEL (94931) - AbnormalNA 122 (*) 135 - 145 mmol/LK 4.0 3.5 - 5.0 mmol/LCL 92 (*) 98 - 108 mmol/LCO2 TOTAL 23 23 - 31 mmol/LAGAP 7 2 - 16BUN 4 (*) 7 - 23 mg/dLGLUCOSE 80 70 - 110 mg/dLCREATININE 0.54 0.50 - 1.04 mg/dLTOTAL BILI 0.7 0.1 - 1.1 mg/dLCALCIUM 9.3 8.6 - 10.6 mg/Gabriel PROTEIN 7.7 6.3 - 8.2 g/dLALBUMIN 3.7 3.5 - 5.0 g/dLALK PHOS 101 34 - 122 U/LALTv 13 5 - 35 U/LAST(SGOT) 29 13 - 40 U/LeGFR 99.8 mL/min/1.67j0DUFQYG ACID WHOLE BLOOD - NormalLACTIC ACID 1.82 0.50 - 2.20 mmol/LPROTHROMBIN TIME / INRACTIVATED PARTIAL THRMPLAS TIMEKG:If EKG completed, see Procedure Note.Orders and Treatments:Orders Placed This EncounterProceduresXR FOOT <3 VW RIGHTCBC WITH DIFFCOMP. METABOLIC PANEL (07840)Lactic Acid Whole BloodLactic Acid Whole BloodProthrombin Time (PT) / INRaPTTOrders Placed This EncounterMedicationsheparin 1000 unit/mL injection Soln 5,000 Unitsheparin (1,000 unit/mL, 10 mL vial)heparin 25,000 Units/250 mL (Premixed Bag) in 0.45 % NSFirst Provider Eval:ED EventsDate/Time Event User Xcqngdzb96/21/24 1326 Medical Screening Begins PAUL SMITH --08/19/23 1326 First Provider Evaluation PAUL SMITH --ED COURSEED Course as of 08/19/23 1618Wed Aug [address] Salomon to transfer to [facility] []ED Course User Index[KL] Paul Smith, FNPDiagnosis/Impression as of 08/19/23 1618Foot swellingCritical limb ischemia of right lower extremityProcedures:ProceduresMDM:[facility] Decision [facility]Mary [facility] and swelling. She reports she believes her foot is infected for the last 3 weeks. She was seen at outside hospital and a He for pain control but no antibiotics. She has a history of "clots" in the leg and has gotten stents. Denies fevers. Reports that she is unable to walk without assistance and has been using a wheelchair.Right foot is swollen and mottled. No palpable pulse and no signals noted with Dopplers. Labs and arterial ultrasound ordered.No leukocytosis, normal lactic. Doppler shows occluded DP, anterior tibial, superficial femorla, and popliteal artery. Spoke with Aime at [facility] and accepted. Heparin drip ordered.Problems Addressed:Critical limb ischemia of right lower extremity: acute illness or injuryFoot swelling: acute illness or injuryAmount and/or Complexity of Data ReviewedLabs: ordered.Radiology: ordered.RiskPrescription drug management.Flowsheet Documentation:Scoring Tools:No data recordedDisposition/Condition:ED DispositionED DispositionTransfer - [facility] to IP/ObsCondition--Comment--Discharge Medications:Patient's MedicationsSTART taking these medicationsNo medications on fileCONTINUE taking these medications which have NOT CHANGEDAMLODIPINE 5 MG TABLET TAKE 1 TABLET BY MOUTH EVERY DAYATORVASTATIN 20 MG TABLET Take 1 tablet by mouth at bedtime.CARVEDILOL 12.5 MG TABLET TAKE 1 TABLET BY MOUTH TWICE A DAY WITH MEALSFAMOTIDINE 20 MG TABLET TAKE 1 TABLET BY MOUTH EVERY 12 HOURS FOR 10 DAYSHYDROCHLOROTHIAZIDE 12.5 MG CAPSULE TAKE 1 CAPSULE BY MOUTH EVERY DAYSTART taking Modified Medications as PrescribedNo medications on fileSTOP taking these medicationsNo medications on fileFollow-up:Electronically signed by:Paul Smith, [facility]08/19/23 1618Paul Smith, [facility]08/19/23 1755 ssociated attestation - Andrew Thorpe MD - 08/19/2023 11:27 PM CST Shelley was personally available for consultation in the Emergency Department during this encounter and patient evaluation by Estefania [id number] Emergency department [id number], [id number] [id number]:27:23Physici an Emergency department [id number] for patient [id number] department NoteLNNARRATIVEFormatted C-CDA narrative textUT[address] C[id number] [id number] .[id number] [facility]
[2023-12-16 19:07] LABS: Specific Gravity < 1.005 (1.005-1.030); Sqamous Epithelial None Seen /HPF (None Seen); Urine Bacteria <20 /HPF (<20); Urine Bilirubin NEGATIVE (Negative); Urine Blood Negative (Negative); Urine Clarity Clear (Clear); Urine Color Colorless (Yellow); Urine Culture Reflex Order NOT NEEDED; Urine Glucose NEGATIVE (Negative); Urine Ketones NEGATIVE (Negative); Urine Microscopic Reflex YN ORDER UMIC; Urine Nitrite NEGATIVE (Negative); Urine Protein NEGATIVE (Negative); Urine RBC <5 /HPF (None Seen); Urine Urobilinogen Normal (Normal); Urine WBC <5 /HPF (<5)
[2023-12-16 19:11] LABS: Absolute Basophils 0.1 K/uL (0-0.5); Absolute Eosinophils 0.1 K/uL (0-0.5); Absolute Lymphocytes (CBC) 2.2 K/uL (0.7-4.9); Absolute Monocytes 0.5 K/uL (0.1-1.3); Absolute Neutrophil 3.3 K/uL (1.8-8.0); Basophils % 1.1 % (0-1.3); Hematocrit 36.3 % (36.0-45.0); Hemoglobin 12.2 g/dL (12.0-15.0); Lymphocytes % 35.7 % (15.3-44.8); MCH 28.5 pg (27.0-35.0); MCHC 33.5 g/dL (32.0-36.0); MCV 84.9 fL (80-100); MPV 6.4 fL (7.6-11.3); Monocytes % 8.6 % (3.3-12.3); Neutrophils % 52.6 % (41.7-73.7); Nucleated Red Blood Cells % 0.3 % (0-0); Platelets 333 thou/uL (152-406); RBC Red Blood Cell Count 4.27 M/uL (3.86-4.86)
[2023-12-16 19:24] LABS: Albumin 3.1 g/dL (3.4-5.0); Albumin/Globulin Ratio 0.8 (1.1-1.8); Bilirubin Total 0.4 mg/dL (0.2-1.0); Globulin 4.1 g/dL (2.3-3.5); Protein, Total 7.2 g/dL (6.4-8.2)
[2023-12-16] MEDS ORDERED: NA CHLORIDE 0.9% 1,000 ML ONE (20:05)
--- NOTE | 2023-12-16 20:09 | ER ---
Nurse's Notes [facility] Name: Paola Ji Age: 68 yrs Sex: Female : 1955 Arrival Date: 12/16/2023 Time: 18:03 Bed 2 Private MD: Diagnosis: Hyponatremia Presentation: 12/15 18:22 Chief complaint: Patient states: Clinic lab results abnormal, Low NA. MARYANN lower back ld1 pain, Right leg pain - denies injury. Coronavirus screen: At this time, the client does not indicate any symptoms associated with coronavirus-19. Ebola Screen: No symptoms or risks identified at this time. Initial Sepsis Screen: Does the patient meet any 2 criteria? No. Patient's initial sepsis screen is negative. Does the patient have a suspected source of infection? No. Patient's initial sepsis screen is negative. Risk Assessment: Do you want to hurt yourself or someone else? Patient reports no desire to harm self or others. Onset of symptoms was December 16, 2023 at 18:23. 18:22 Method Of Arrival: Ambulatory ld1 18:22 Acuity: JAIMEE 3 ld1 Triage Assessment: 18:23 General: Appears in no apparent distress. comfortable, Behavior is calm, cooperative, ld1 appropriate for age. Pain: Complains of pain in low back area Pain does not radiate. Pain currently is 9 out of 10 on a pain scale. Quality of pain is described as throbbing, Is continuous. EENT: No signs and/or symptoms were reported regarding the EENT system. Neuro: Level of Consciousness is awake, alert, obeys commands, Oriented to person, place, time, situation. Cardiovascular: Capillary refill < 3 seconds Patient's skin is warm and dry. Respiratory: Airway is patent Respiratory effort is even, unlabored. GI: Abdomen is flat, non-distended. : No signs and/or symptoms were reported regarding the genitourinary system. Derm: No signs and/or symptoms reported regarding the dermatologic system. Musculoskeletal: No signs and/or symptoms reported regarding the musculoskeletal system. Historical: - Allergies: 18: No Known Allergies; ld1 - PMHx: 18:23 CHF; Hypercholesterolemia; Hypertension; ld1 - PSHx: 18:23 R leg stent x 2; ld1 - Immunization history:: Adult Immunizations up to date. - Infectious Disease History:: Denies. - Social history:: Smoking status: Patient reports the use of cigarette tobacco products, smokes one-half pack cigarettes per day, chewing tobacco. Screenin:11 [facility] ED Fall Risk Assessment (Adult) History of falling in the last 3 months, rs5 including since admission No falls in past 3 months (0 pts) Confusion or Disorientation No (0 pts) Intoxicated or Sedated No (0 pts) Impaired Gait Yes (1 pt) Mobility Assist Device Used Yes (1 pt) Altered Elimination No (0 pt) Score/Fall Risk Level 0 - 2 = Low Risk Oriented to surroundings, Maintained a safe environment. Abuse screen: Denies threats or abuse. Nutritional screening: No deficits noted. Tuberculosis screening: No symptoms or risk factors identified. Assessment: 18:11 Reassessment: Patient and/or family updated on plan of care and expected duration. Pain rs5 level reassessed. Patient is alert, oriented x 3, equal unlabored respirations, skin warm/dry/pink. 18:46 General: Appears in no apparent distress. comfortable, Behavior is calm, cooperative. rs5 Pain: Complains of pain in lower back and right leg Pain currently is 8 out of 10 on a pain scale. Quality of pain is described as aching, Is continuous. Neuro: Level of Consciousness is awake, alert, obeys commands, Oriented to person, place, time, situation. Cardiovascular: Patient's skin is warm and dry. Respiratory: Airway is patent Respiratory effort is even, unlabored, Respiratory pattern is regular, symmetrical. GI: Abdomen is round non-distended, Abd is soft and non tender X 4 quads. : No signs and/or symptoms were reported regarding the genitourinary system. EENT: No signs and/or symptoms were reported regarding the EENT system. Derm: Skin is intact, Skin is dry, Skin is normal. Musculoskeletal: Range of motion: limited in right leg. 19:05 Reassessment: Patient appears in no apparent distress at this time. Patient and/or jb4 family updated on plan of care and expected duration. Pain level reassessed. Patient is alert, oriented x 3, equal unlabored respirations, skin warm/dry/pink. Pt disconnected to go to the restroom. 19:14 Reassessment: Pt reconnected and back in bed. jb4 21:23 Reassessment: Patient appears in no apparent distress at this time. Patient and/or bm8 family updated on plan of care and expected duration. Pain level reassessed. Patient is alert, oriented x 3, equal unlabored respirations, skin warm/dry/pink. Patient states feeling better. Patient states symptoms have improved. Vital Signs: 18:22 BP 182 / 87; Pulse 84; Resp 18; Temp 98.2(O); Pulse Ox 100% on R/A; Weight 77.11 kg; ld1 Height 5 ft. 6 in. ; Pain 9/10; 18:50 BP 153 / 86; Pulse 77; Resp 17; Pulse Ox 99% on R/A; rs5 21:23 BP 170 / 78; Pulse 77; Resp 18; Temp 98.3; Pulse Ox 97% ; Pain 0/10; bm8 18:22 Body Mass Index 27.44 (77.11 kg, 167.64 cm) ld1 18:22 Pain Scale: Adult ld1 21:23 Pain Scale: Adult bm8 Patricia Coma Score: 21:23 Eye Response: spontaneous(4). Motor Response: obeys commands(6). Verbal Response: bm8 oriented(5). Total: 15. ED Course: 18:06 Patient arrived in ED. rg4 18:11 [facility] Santiago F[facility]-C [facility]. kb 18:11 Noemi Goff MD is Attending Physician. kb 18:11 Patient has correct armband on for positive identification. Placed in gown. Bed in low rs5 position. Call light in reach. Side rails up X2. 18:11 No provider procedures requiring assistance completed. rs5 18:14 Leilani Schmidt, RN is Primary Nurse. nj1 18:15 Inserted saline lock: 20 gauge in left antecubital area, using aseptic technique. Blood rs5 collected. 18:23 Triage completed. ld1 18:23 Arm band placed on right wrist. ld1 19:00 Chest Single View XRAY In Process Unspecified. EDMS 20:08 Yudi Hewitt MD is Hospitalizing Provider. kb 21:23 Provided Education on: need for admission. Client placed on continuous cardiac and bm8 pulse oximetry monitoring. NIBP monitoring applied. monitoring and evaluation advisor on. Pulse ox on. NIBP on. Door closed. Noise minimized. Warm blanket given. Verbal reassurance given. Head of bed elevated. 21:23 Patient admitted, IV remains in place. bm8 Administered Medications: 20:10 Drug: NS 0.9% IV 1000 ml IV at 75 ml/hr continuous Route: IV; Rate: 75 ml/hr; Site: [facility] left antecubital; 21:15 Follow up: Response: No adverse reaction; IV Status: Infusion continued upon admission bm8 Medication: 18:50 VIS not applicable for this client. rs5 Outcome: 20:08 Decision to Hospitalize by Provider. kb 21:23 Admitted to Tele accompanied by tech, via wheelchair, with chart, bm8 21:23 Condition: stable 21:23 Instructed on discharge instructions, follow up and referral plans. the need for admit, Demonstrated understanding of instructions, follow-up care, 22:11 Patient left the ED. jb4 Signatures: Dispatcher [employer] EDMS Joyce Santiago, LABEL PASTER-C LABEL PASTER-Carolina Molina rg4 Vinny Hoskins, RN RN jb4 Heike Shanks, RN RN ld1 Armand Dougherty, RN RN rs5 Leilani Schmidt, RN RN nj1 Blade Belle, RN RN bm8
--- NOTE | 2023-12-16 20:09 | EDPHYS ---
Physician Documentation [facility] Name: Paola Ji Age: 68 yrs Sex: Female : 1955 Arrival Date: 12/16/2023 Time: 18:03 Bed 2 Private MD: ED Physician Noemi Goff HPI: 12/15 21:34 This 68 yrs old Black Female presents to ER via Ambulatory with complaints of Abnormal kb Lab Results. 21:34 Pt is a 68 year old female who presents for abnormal labs. States she had routine blood kb work done and was told to come to the ER for an abnormal lab. States she has pain across her low back but only when doing house work. Also reports cough for 2 months. Denies fever, shortness of breath. Historical: - Allergies: 18:23 No Known Allergies; ld1 - PMHx: 18:23 CHF; Hypercholesterolemia; Hypertension; ld1 - PSHx: 18:23 R leg stent x 2; ld1 - Immunization history:: Adult Immunizations up to date. - Infectious Disease History:: Denies. - Social history:: Smoking status: Patient reports the use of cigarette tobacco products, smokes one-half pack cigarettes per day, chewing tobacco. ROS: 21:33 Constitutional: As per HPI kb Exam: 21:33 Constitutional: This is a well developed, well nourished patient who is awake, alert, kb and in no acute distress. Head/Face: Normocephalic, atraumatic. ENT: Moist Mucous membranes Chest/axilla: Normal chest wall appearance and motion. Cardiovascular: Regular rate Respiratory: Respirations even and unlabored. No increased work of breathing. Talking in full sentences Abdomen/GI: Soft, non-tender. No distention Skin: Warm, dry with normal turgor. Normal color. MS/ Extremity: Pulses equal, no cyanosis. Neurovascular intact. Full, normal range of motion. Neuro: Awake and alert, GCS 15, oriented to person, place, time, and situation. Moves all extremities. Normal gait. Vital Signs: 18:22 BP 182 / 87; Pulse 84; Resp 18; Temp 98.2(O); Pulse Ox 100% on R/A; Weight 77.11 kg; ld1 Height 5 ft. 6 in. ; Pain 9/10; 18:50 BP 153 / 86; Pulse 77; Resp 17; Pulse Ox 99% on R/A; rs5 21:23 BP 170 / 78; Pulse 77; Resp 18; Temp 98.3; Pulse Ox 97% ; Pain 0/10; bm8 18:22 Body Mass Index 27.44 (77.11 kg, 167.64 cm) ld1 18:22 Pain Scale: Adult ld1 21:23 Pain Scale: Adult bm8 Patricia Coma Score: 21:23 Eye Response: spontaneous(4). Motor Response: obeys commands(6). Verbal Response: bm8 oriented(5). Total: 15. MDM: 18:11 Patient medically screened. kb 21:33 Differential diagnosis: abnormal electrolytes, dehydration, pneumonia. Data reviewed: kb vital signs, nurses notes. Consideration of Admission/Observation Patient was admitted/placed on observation. Escalation of care including admission/observation considered. Management of patient was discussed with the following: Hospitalist: Dr Hewitt accepts pt for admission. External Records Reviewed: Outpatient labs: outpatient labs reviewed. Na 120 on 12/12/23. Counseling: I had a detailed discussion with the patient and/or guardian regarding the historical points, exam findings, and any diagnostic results supporting the discharge/admit diagnosis, lab results, radiology results, the need for further work-up and treatment in the hospital. 12/15 18:30 Order name: CBC with Diff; Complete Time: 19:21 kb 12/15 18:30 Order name: CMP; Complete Time: 19:42 kb 12/15 18:30 Order name: Urinalysis w/ reflexes; Complete Time: 19:12 kb 12/15 18:30 Order name: Urine Osmolality; Complete Time: 20:01 kb 12/15 18:30 Order name: Urine Sodium Random; Complete Time: 19:42 kb 12/15 18:30 Order name: Osmolality, Serum; Complete Time: 20:01 kb 12/15 20:51 Order name: Magnesium EDHI 12/15 20:51 Order name: Thyroid Stimulating Hormone EDHI 12/15 20:51 Order name: Basic Metabolic Panel EDHI 12/15 20:51 Order name: Basic Metabolic Panel EDHI 12/15 20:51 Order name: Basic Metabolic Panel EDHI 12/15 20:51 Order name: Basic Metabolic Panel EDHI 12/15 20:51 Order name: CBC with Automated Diff EDHI 12/15 20:51 Order name: CBC with Automated Diff EDMS 12/15 18:30 Order name: Chest Single View XRAY; Complete Time: 20:33 kb 12/15 20:51 Order name: CONS Physician Consult EDMS 12/15 18:30 Order name: IV Start; Complete Time: 18:46 kb 12/15 18:53 Order name: Labs - recollect needed: collect a red tube for serum osmolality; Complete bd Time: 19:10 Administered Medications: 20:10 Drug: NS 0.9% IV 1000 ml IV at 75 ml/hr continuous Route: IV; Rate: 75 ml/hr; Site: [facility] left antecubital; 21:15 Follow up: Response: No adverse reaction; IV Status: Infusion continued upon admission bm8 Disposition Summary: 12/16/23 20:08 Hospitalization Ordered Notes: Hospitalization Status: Inpatient Admission kb Provider: Yudi Hewitt Location: Telemetry/MedSurg (Inpatient) kb Condition: Stable kb Problem: new kb Symptoms: are unchanged kb Bed/Room Type: Standard Room Assignment: 409(12/16/23 20:57) [facility] Diagnosis - Hyponatremia kb Forms: - Medication Reconciliation Form kb - SBAR form kb - Leadership Thank You Letter kb Critical care time excluding procedures: 12/16 10:38 Critical care time: Bedside Care: 20 minutes, Consultation: 10 minutes. Total time: 30 kb minutes Signatures: Dispatcher [employer] EDMS Joyce Santiago, ANALI-C SAP BASIS-Kierra Pizano James, JB RN jb4 Heike Shanks RN RN Shirley Vega [facility] Blade Belle RN bm8 Corrections: (The following items were deleted from the chart) 12/15 18:30 18:30 CBC+H.LAB.BRZ ordered. EDMS EDMS 18:30 18:30 COMPREHENSIVE METABOLIC PANEL+C.LAB.BRZ ordered. EDMS EDMS 18:30 18:30 Urinalysis+U.LAB.BRZ ordered. EDMS EDMS 18:30 18:30 Osmolality, Urine ordered. EDMS EDMS 18:31 18:30 URINE SODIUM RANDOM+CHEM UR.LAB.BRZ ordered. EDMS EDMS 18:31 18:30 OSMOLALITY, SERUM+SC.LAB.BRZ ordered. EDMS EDMS 18:31 18:31 Chest Single View+RAD.RAD.BRZ ordered. EDMS EDMS 20:57 20:08 kb kmf
--- NOTE | 2023-12-16 20:26 | RAD REPORT ---
EXAM DESCRIPTION: RADChest Single View12/16/2023 6:58 pm CLINICAL HISTORY: COUGH COMPARISON: Chest Pa And Lat (2 Views) dated 07/29/2023; Chest Pa And Lat (2 Views) dated 08/06/2022; C hest Single View dated 07/20/2018; Chest Single View dated 06/20/2018 TECHNIQUE: Portable AP view of the chest. FINDINGS: The lungs are clear. No pneumothorax or effusion. The cardiomediastinal contours are unre markable. IMPRESSION: No acute cardiopulmonary process.
[2023-12-16] MEDS ORDERED: MORPHINE 2 MG/ML SYR IV PRN (20:46)
[2023-12-16] MEDS ORDERED: ONDANSETRON 4 MG/2 ML VIAL IV PRN (20:46)
[2023-12-16] MEDS ORDERED: ALBUTEROL 2.5 MG/3 ML NEB SOL NEB PRN (20:46)
--- NOTE | 2023-12-16 20:54 | P.HP ---
Certification for Inpatient Patient admitted to: Inpatient With expected LOS: <2 Midnights Patient will require the following post-hospital care: None Practitioner: I am a practitioner with admitting privileges, knowledge of patient current condition, hospital course, and medical plan of care. Services: Services provided to patient in accordance with Admission requirements found in Title 42 Section 412.3 of the Code of Federal Regulations Patient History Date of Service: 12/16/23 Reason for admission: Abnormal lab History of Present Illness: 68-year-old female with past medical history of hypertension, PVD, thyroid disease who was brought in after abnormal outpatient labs shows low serum sodium of 120. Patient admits to mild weakness but denies any nausea or vomiting. She denies any diarrhea. She admits to chronic cough since the last 3 months. She admits to regular alcohol use at night. Drinks about 3 beers per night. No prior history of seizure activity. She states her appetite and food intake is intact. On arrival in the ED vital signs were stable, serum sodium noted at 119, urine osmolality of 256 which urine sodium of 33. Patient is being admitted for hyponatremia Allergies kiwi Adverse Reaction (Verified 07/29/23 16:28) Nausea/Vomiting Home Medications: Amlodipine Besylate 5 mg PO DAILY #30 tablet 05/23/14 carvediloL [Coreg*] 6.25 mg PO BID #60 tab 05/23/14 Lovastatin 20 mg PO DAILY 07/29/23 Rivaroxaban [Xarelto] 20 mg PO DAILY 07/29/23 methIMAzole [Tapazole*] 5 mg PO DAILY 07/29/23 Benzonatate [Tessalon Perle*] 100 mg PO TID PRN cap 08/01/23 Benzonatate [Tessalon Perle] 100 mg PO TID PRN #60 cap 08/01/23 Clotrimazole [Clotrimazole AF] 28 gm TP TID #1 tube 08/01/23 - Past Medical/Surgical History Diabetic: No -: HTN -: Hyperlipidemia -: Hyperthyroidism -: CHFunknown EF -: Blood Clot in bilateral legs that were dx 2 months -: Balloon placed in right leg for blood clots 2 months ago Psychosocial/ Personal History: Lives at home with family - Social History Smoking Status: Current every day smoker Counseled patient to stop smoking for: less than 10 minutes Smoking therapy provided: No Patient receptive to therapy: No Alcohol use: Yes CD- Drugs: No Caffeine use: No Place of Residence: Home Review of Systems Respiratory: Cough, Dry Physical Examination - Physical Exam General: Alert, In no apparent distress, Oriented x3 HEENT: Atraumatic, Normocephalic, PERRLA Neck: Supple, JVD not distended Respiratory: Clear to auscultation bilaterally, Normal air movement Cardiovascular: Normal pulses, Regular rate/rhythm, Normal S1 S2 Gastrointestinal: Normal bowel sounds, Soft and benign, Non-distended, No tenderness Musculoskeletal: No clubbing, No swelling Integumentary: No rashes, No breakdown Neurological: Normal speech, Normal strength at 5/5 x4 extr, Sensation intact, Cranial nerves 3-12 intact - Studies Laboratory Data (last 24 hrs) 12/16/23 12/16/23 18:40 18:40 WBC 6.30 Hgb 12.2 Hct 36.3 Plt Count 333 Sodium 119 L* Potassium 4.0 BUN 5 L Creatinine 0.60 Glucose 82 Total Bilirubin 0.4 AST 20 ALT 19 Alkaline Phosphatase 146 H Assessment and Plan - Plan Impression Acute hyponatremia Hypertension HLD Chronic cough Plan Hyponatremiagiven low urine sodium, start normal saline Likely due to beer potomania although protein intake appears to be adequate Free water restriction to less than 1200 cc/day Follow BMP every 4 Nephrology consult in a.m. Follow TSH and uric acid Hypertensionelevated, restart home medsCoreg/Norvasc IV hydralazine as needed Chronic coughobtain chest x-ray, if abnormal will follow CT to rule out any underlying pathology Daily drinkeralcohol cessation advised, Ativan as needed for withdrawal symptoms while in house History of hypothyroidismon methimazole, states she is scheduled for thyroid biopsy, requesting rescheduling with radiology while inpatient DVT prophylaxis subcutaneous Lovenox Advance directivefull code - Advance Directives Does patient have a Living Will: No Does patient have a Durable POA for Healthcare: No
[2023-12-16] MEDS: GUAIFENESIN 600 MG SA TAB PO SCH (21:00)
[2023-12-16] MEDS ORDERED: LORazepam 2 MG/ML VIAL IV PRN (21:51)
[2023-12-16] MEDS: ATORVASTATIN 80 MG TAB PO ONE (23:29)
[2023-12-16] MEDS: APIXABAN 5 MG TABLET PO SCH (23:29)
[2023-12-16] MEDS: carvediloL 6.25 MG TAB PO ONE (23:29)
[2023-12-16] MEDS: NA CHLORIDE 0.9% 1,000 ML IV SCH (23:29)
[2023-12-16] MEDS: GABAPENTIN 100 MG CAP PO ONE (23:58)
[2023-12-17 00:19] VITALS: BMI 27.4
[2023-12-17 00:33] LABS: Anion Gap 10.9 mEq/L (5.0-15.0); Magnesium 2.3 mg/dL (1.6-2.4); Potassium 3.9 mEq/L (3.5-5.1); Thyroid Stimulating Hormone 15.3 uIU/mL (0.358-3.740)
[2023-12-17] MEDS: GABAPENTIN 100 MG CAP PO ONE (00:46)
[2023-12-17] MEDS: BENZONATATE 100 MG CAP PO PRN ×2 (01:39→23:21)
[2023-12-17] MEDS: ALBUTEROL 2.5 MG/3 ML NEB SOL NEB PRN (03:31)
[2023-12-17 06:48] LABS: Absolute Basophils 0.1 K/uL (0-0.5); Absolute Eosinophils 0.1 K/uL (0-0.5); Absolute Lymphocytes (CBC) 1.8 K/uL (0.7-4.9); Absolute Monocytes 0.7 K/uL (0.1-1.3); Absolute Neutrophil 3.3 K/uL (1.8-8.0); Eosinophils % 2.2 % (0-4.4); Hematocrit 34.2 % (36.0-45.0); Hemoglobin 11.2 g/dL (12.0-15.0); Lymphocytes % 29.9 % (15.3-44.8); MCHC 32.8 g/dL (32.0-36.0); MCV 85.4 fL (80-100); MPV 6.8 fL (7.6-11.3); Monocytes % 11.1 % (3.3-12.3); Neutrophils % 55.8 % (41.7-73.7); Nucleated Red Blood Cells % 0.1 % (0-0); Platelets 301 thou/uL (152-406); RBC Red Blood Cell Count 4.01 M/uL (3.86-4.86); Red Cell Distribution Width 15.7 % (12.1-15.2)
[2023-12-17 07:04] LABS: Anion Gap 9.1 mEq/L (5.0-15.0); Potassium 4.1 mEq/L (3.5-5.1)
[2023-12-17] MEDS: NICOTINE 21 MG/PAT TD SCH (08:47)
[2023-12-17] MEDS: ASPIRIN 325 MG TAB PO SCH (08:48)
[2023-12-17] MEDS: carvediloL 6.25 MG TAB PO SCH (08:48)
[2023-12-17] MEDS: AMLODIPINE 5 MG TAB PO SCH (08:48)
[2023-12-17] MEDS: GABAPENTIN 100 MG CAP PO SCH (08:49)
[2023-12-17] MEDS ORDERED: GABAPENTIN 100 MG CAP PO SCH (09:00)
[2023-12-17] MEDS ORDERED: APIXABAN 5 MG TABLET PO SCH (09:00)
[2023-12-17] MEDS ORDERED: ENOXAPARIN 40 MG/0.4 ML SQ SCH (09:00)
--- NOTE | 2023-12-17 09:03 | P.PN ---
Subjective Date of Service: 12/17/23 Chief Complaint: Abnormal lab Subjective: No new changes (states she is urinating often) <Hilda Villarrealbrooke Castañeda - Last Filed: 12/17/23 10:19> Date of Service: 12/17/23 <Timo Page - Last Filed: 12/17/23 13:18> Review of Systems 10-point ROS is otherwise unremarkable General: As per HPI Genitourinary: As per HPI <VillarrealHildabrooke Castañeda - Last Filed: 12/17/23 10:19> Physical Examination - Vital Signs Temperature: 97.1 F Blood Pressure: 165/73 Pulse: 73 Respirations: 18 Pulse Ox (%): 96 - Physical Exam General: Alert, In no apparent distress, Oriented x3 HEENT: Atraumatic, Normocephalic Neck: Supple Respiratory: Normal air movement Cardiovascular: Normal pulses, Regular rate/rhythm Capillary refill: <2 Seconds Gastrointestinal: Soft and benign Musculoskeletal: No clubbing, No swelling Integumentary: No rashes Neurological: Normal speech, Normal tone, Normal affect Lymphatics: No axilla or inguinal lymphadenopathy External genitalia: Deferred Rectal: Deferred - Studies Laboratory Data (last 24 hrs) 12/16/23 12/16/23 12/16/23 20:45 18:40 18:40 WBC 6.30 Hgb 12.2 Hct 36.3 Plt Count 333 Sodium 119 L* Potassium 4.0 BUN 5 L Creatinine 0.60 Glucose 82 Magnesium Cancelled Total Bilirubin 0.4 AST 20 ALT 19 Alkaline Phosphatase 146 H <VillarrealHildabrooke Castañeda - Last Filed: 12/17/23 10:19> - Studies Laboratory Data (last 24 hrs) 12/16/23 12/16/23 12/16/23 20:45 18:40 18:40 WBC 6.30 Hgb 12.2 Hct 36.3 Plt Count 333 Sodium 119 L* Potassium 4.0 BUN 5 L Creatinine 0.60 Glucose 82 Magnesium Cancelled Total Bilirubin 0.4 AST 20 ALT 19 Alkaline Phosphatase 146 H <Timo Page - Last Filed: 12/17/23 13:18> Assessment And Plan - Plan - Plan Impression Acute hyponatremia Hypertension HLD Chronic cough Plan Hyponatremiagiven low urine sodium, start normal saline Likely due to beer potomania although protein intake appears to be adequate Free water restriction to less than 1200 cc/day Follow BMP every 4h Nephrology consult in a.m. (Dr. Abdi) Follow TSH and uric acid - TSH > 14, Free T4 also low, will stop methimazole and start Levothyroxine Hypertensionelevated, restart home medsCoreg/Norvasc IV hydralazine as needed Chronic coughobtain chest x-ray, if abnormal will follow CT to rule out any underlying pathology (nicotine patch - pt is attempting cessation) Daily drinkeralcohol cessation advised, Ativan as needed for withdrawal symptoms while in house History of hypothyroidismon methimazole, states she is scheduled for thyroid biopsy, requesting rescheduling with radiology while inpatient DVT prophylaxis subcutaneous Lovenox Advance directivefull code - Advance Directives Does patient have a Living Will: No Does patient have a Durable POA for Healthcare: No <Unique Villarreal - Last Filed: 12/17/23 10:19> - Plan Pt seen and examined. I agree with the note by the RETAIL OPERATIONS MANAGER. Hyponatremia could be due to Hypothyroidism or beer potomania. TDH is 15.3 and free T4 is 1.57. Will continue fluid restriction. Will trend sodium. Continue home med for other chronic medical problems. <Timo Page - Last Filed: 12/17/23 13:18>
[2023-12-17] MEDS ORDERED: MORPHINE 4 MG/ML SYR IV PRN (10:23)
--- NOTE | 2023-12-17 15:17 | CON ---
Date of Consultation: 12/17/2023 Reason For Consultation: Hyponatremia. History Of Present Illness: This is a pleasant 68-year-old female with significant past medical history of hypertension, hyperlipidemia, hypothyroidism, congestive heart failure, unknown ejection fraction, PAD. History of previous hyponatremia before secondary to chlorthalidone. According to the patient, patient was in her regular state of health. The patient came to the hospital as her lab showed hyponatremia, sodium down to 119. According to the patient, patient is active drinker and apparently she is back taking hydrochlorothiazide, even though the chlorthalidone has been discontinued. The patient denied any nonsteroidal. The patient found to have severe hyponatremia and elevation in TSH. The patient was started on hydration. The patient feeling better. No tremor. No headache. Past Medical History: Includes: 1. Hypertension. 2. Hyperlipidemia. 3. Hypothyroidism. 4. CHF. 5. Hyponatremia before. 6. PE. 7. DVT. Home Medications: Include: 1. Amlodipine. 2. Carvedilol. 3. Lovastatin. 4. Hydrochlorothiazide. 5. Methimazole. 6. Clotrimazole. Allergies: NO KNOWN DRUGS ALLERGY. Past Surgical History: Negative. Social History: Active smoker. Active alcohol. Denied drugs abuse. Review of Systems: Head and Neck: No red eye. No ear pain. GI: No nausea. No vomiting. : No polyuria. No dysuria. No hematuria. INSIDE POLISHER: No vaginal discharge. Respiratory: Has cough. Cardiovascular: No chest pain. Endocrine: No polydipsia. Skin: No rash. Neuro: Has neuropathy. Musculoskeletal: Generalized fatigue. Physical Examination: Vital Signs: When I saw the patient, blood pressure 119/76, pulse of 76. Chest: Clear to auscultation. Heart: S1, S2. Regular. Abdomen: Soft, nontender. Extremity: No edema. Neurological: Alert and oriented x3. Nonfocal. No tremor. Laboratory Data: Upon admission; hemoglobin 12.2, sodium 119, potassium 4, bicarb 24, BUN 5, creatinine 0.6, this is at 6:40 p.m. yesterday. After 5 hours; sodium 124, then today in the morning at 6:00 o'clock, which is after another 6 hours, sodium 124, TSH 1.5. Latest lab data at 6:00 o'clock in the morning, sodium 124, potassium 4, bicarb 25, BUN 6, creatinine 0.5, calcium 9. Urinalysis negative for infection. Current Medications: The patient on include amlodipine, atorvastatin, carvedilol 6.25, hydralazine, gabapentin, lorazepam, levothyroxine, normal saline at 75 per hour. Assessment And Plan: 1. Hyponatremia, mostly secondary to hydrochlorothiazide supported with urine sodium and specific gravity 1.05 superimposed with hypothyroidism. I agree with current IV fluid. We will follow up the lab. I will get another renal panel and we will monitor the patient. 2. Hypertension with the presence of recurrent hyponatremia. Avoid chlorthalidone and avoid hydrochlorothiazide. The patient verbalized understanding. 3. Congestive heart failure, currently patient on the dry side. Hold hydrochlorothiazide. We will monitor the patient. 4. Hypothyroidism, adjust chlorthalidone. 5. Hypokalemia, status post supplement, recovered, resolved. Time spent examining the patient [id number] reviewing data lab and radiology placing orders and discussing the case with the patient discussing the case with the java development team lead including hospitalist nursing staff more than 55-minute MARY KAY Voice ID: [id number] Report ID: [id number] TERESA
[2023-12-17] MEDS: ATORVASTATIN 80 MG TAB PO SCH (21:48)
[2023-12-17] MEDS: ACETAMINOPHEN 325 MG TABLET PO PRN (21:58)
[2023-12-18] MEDS: LEVOTHYROXINE SOD 0.1 MG TAB PO SCH (06:20)
[2023-12-18 06:42] LABS: Albumin 2.7 g/dL (3.4-5.0); Phosphorus 3.3 mg/dL (2.5-4.9)
[2023-12-18] MEDS: ARFORMOTEROL TARTRATE 15 MCG/2 ML VIAL.NEB NEB SCH (08:00)
--- NOTE | 2023-12-18 10:39 | P.PN ---
Subjective Date of Service: 12/18/23 Chief Complaint: Abnormal lab Subjective: Other (nebulizers helping) <Unique Villarreal - Last Filed: 12/18/23 10:36> Date of Service: 12/18/23 <TeresecharliTimo steward Mercedes - Last Filed: 12/18/23 13:53> Review of Systems 10-point ROS is otherwise unremarkable Respiratory: Cough, Wheezing <Unique Villarreal - Last Filed: 12/18/23 10:36> Physical Examination - Vital Signs Temperature: 96.9 F Blood Pressure: 172/86 Pulse: 76 Respirations: 18 Pulse Ox (%): 100 - Physical Exam General: Alert, In no apparent distress, Oriented x3 HEENT: Atraumatic, Normocephalic Neck: Supple Respiratory: Expiratory wheezes, Inspiratory wheezes Cardiovascular: No edema, Normal pulses Capillary refill: <2 Seconds Gastrointestinal: Soft and benign Musculoskeletal: No clubbing, No swelling Integumentary: No rashes Neurological: Normal speech, Normal tone Lymphatics: No axilla or inguinal lymphadenopathy External genitalia: Deferred Rectal: Deferred <Unique Villarreal - Last Filed: 12/18/23 10:36> Assessment And Plan - Plan - Plan Impression Acute hyponatremia Hypertension HLD Chronic cough Plan Hyponatremiagiven low urine sodium, start normal saline Likely due to beer potomania although protein intake appears to be adequate Free water restriction to less than 1200 cc/day Follow BMP every 4h Nephrology consult in a.m. (Dr. Abdi) Follow TSH and uric acid - TSH > 14, Free T4 also low, will stop methimazole and start Levothyroxine Na up from 119 to 124 to 132 Hypertensionelevated, restart home medsCoreg/Norvasc IV hydralazine as needed Chronic coughobtain chest x-ray, if abnormal will follow CT to rule out any underlying pathology (nicotine patch - pt is attempting cessation) 12/17 Significant wheezing today - NEBs given, pt states they are helpful, will repeat CXR Daily drinkeralcohol cessation advised, Ativan as needed for withdrawal symptoms while in house History of hypothyroidismon methimazole, states she is scheduled for thyroid biopsy, requesting rescheduling with radiology while inpatient DVT prophylaxis subcutaneous Lovenox Advance directivefull code - Advance Directives Does patient have a Living Will: No Does patient have a Durable POA for Healthcare: No <Unique Villarreal - Last Filed: 12/18/23 10:36> - Plan Pt seen and examined. I agree with the note by the RESEARCH CHEMICAL ENGINEER. Hyponatremia is improving. Continue IVF. Continue synthroid for hypothyroidism. Will order FNA of thyroid gland. Continue home meds for other chronic medical problems. <Timo Page - Last Filed: 12/18/23 13:53>
--- NOTE | 2023-12-18 12:21 | RAD REPORT ---
EXAM DESCRIPTION: RAD - Chest Pa And Lat (2 Views) - 12/18/2023 9:43 am CLINICAL HISTORY: significant wheeze, cough COMPARISON: Chest Single View dated 12/16/2023; Chest Pa And Lat (2 Views) dated 07/29/2023; Chest Pa And Lat (2 Views) dated 08/06/2022; Chest Single View dated 07/20/2018 TECHNIQUE: PA and lateral views of the chest were obtained. FINDINGS: The lungs are clear. Heart size is normal and central vasculature is within normal limits. No pleural effusion or pneumothorax seen. No acute bony finding noted. IMPRESSION: No acute cardiopulmonary process.
[2023-12-19 00:31] VITALS: O2SAT 98
--- NOTE | 2023-12-19 02:55 | PN ---
Date of Progress Note: 12/18/2023 Chief Complaint: Hyponatremia. Subjective: The patient is a 68-year-old woman with past medical history of hypertension; hyperlipid emia; hypothyroidism; congestive heart failure, unknown ejection fraction; peripheral arterial diseas e; history of previous episodes related to hyponatremia secondary to chlorthalidone. According to th e patient, the patient was in her regular state of health until admission to the hospital. Lab work showed hyponatremia, sodium was 119. According to the patient, she is an active drinker and apparent ly she is back taking nonsteroidal anti-inflammatory medication and hydrochlorothiazide. The patient is feeling better. Sodium level has improved gradually. TSH was checked to rule out hypothyroidism . Review of Systems: Denies chest pain, palpitation. Physical Examination: Lungs: Clear to auscultation bilaterally. Heart: S1, S2. Abdomen: Soft. Extremities: No edema. Impression And Plan: 1.Hyponatremia secondary to hydrochlorothiazide, superimposed with effect of low sodium intake. The patient has history of hypothyroidism, though a recent TSH level is within normal limits. Continue sodium chloride IV infusion. Monitor electrolytes. 2.HCTZ medication was used for hypertension. Avoid chlorthalidone and avoid hydrochlorothiazide bec ause of acute kidney injury. 3.Congestive heart failure. Currently, the patient is slightly volume depleted. The patient will c ontinue p.o. fluid intake. Plan is to monitor electrolytes. 4.Hypothyroidism. Follow up with babbitt spinner. 5.Hypokalemia, status post supplementation. HOMERO/THU Voice ID: [id number] Report ID: [id number]
[2023-12-19] MEDS: HYDRALAZINE HCL 20 MG/ML VIAL IV PRN (06:15)
[2023-12-19 06:49] LABS: Albumin 2.7 g/dL (3.4-5.0); Anion Gap 6.5 mEq/L (5.0-15.0); Phosphorus 3.2 mg/dL (2.5-4.9); Potassium 3.5 mEq/L (3.5-5.1)
[2023-12-19] MEDS: carvediloL 6.25 MG TAB PO SCH (08:32)
[2023-12-19] MEDS: AMLODIPINE 5 MG TAB PO SCH (08:33)
--- NOTE | 2023-12-19 09:20 | P.DS ---
Admission Date: 12/18/23 Discharge Date: 12/19/23 Reason for Admission: Abnormal lab Consultations: Dr. Abdi Brief History of Present Illness: 68-year-old female with past medical history of hypertension, PVD, thyroid disease who was brought in after abnormal outpatient labs shows low serum sodium of 120. Patient admits to mild weakness but denies any nausea or vomiting. She denies any diarrhea. She admits to chronic cough since the last 3 months. She admits to regular alcohol use at night. Drinks about 3 beers per night. No prior history of seizure activity. She states her appetite and food intake is intact. Hospital Course: The patient has a history of hyperthyroidism, on methimazole, though TSH level on this admission is 15.7, free T4 is low 0.57. Stop Methimazole, started on Levothyroxine 125mcg po daily. Must follow up with endocrinology. Avoid chlorthalidone and avoid hydrochlorothiazide because of acute kidney injury and hyponatremia. History of congestive heart failure. Blood pressure medications ad justed. On admission, slightly volume depleted. Continue to monitor and trend blood pressure and intake and output for PCP. <Unique Villarreal - Last Filed: 12/19/23 09:21> Admission Date: 12/18/23 Discharge Date: 12/19/23 Hospital Course: Pt seen and examined. I agree with the note by the OPHTHALMOLOGY SURGICAL TECHNICIAN. We stopped methimazole and gave synthroid due to hypothyroidism. Pt was advised to see an lead systems developer and also do FNA. Will hold ELiquis until after the procedure. Follow up with PCP within1 week. Ok to discharge pt <Timo Page - Last Filed: 12/19/23 13:05> Disposition: ROUTINE DISCHARGE Discharge Condition: GOOD Vital Signs/Physical Exam: Temp Pulse Resp BP Pulse Ox 97.1 F 68 18 116/67 100 12/19/23 04:00 12/19/23 08:33 12/19/23 04:00 12/19/23 08:33 12/19/23 04:00 General: Alert, In no apparent distress, Oriented x3 HEENT: Atraumatic, Normocephalic Respiratory: Normal air movement Cardiovascular: No edema, Normal pulses, Regular rate/rhythm, Normal S1 S2 Capillary refill: <2 Seconds Gastrointestinal: Soft and benign Musculoskeletal: No clubbing Integumentary: No rashes Neurological: Normal speech, Normal tone, Normal affect Lymphatics: No axilla or inguinal lymphadenopathy External genitalia: Deferred Rectal: Deferred Laboratory Data at Discharge: WBC 5.90 thou/uL (4.3-10.9) 12/17/23 06:15 Hgb 11.2 g/dL (12.0-15.0) L D 12/17/23 06:15 Hct 34.2 % (36.0-45.0) L 12/17/23 06:15 Plt Count 301 thou/uL (152-406) 12/17/23 06:15 Sodium 131 mEq/L (136-145) L 12/19/23 05:57 Potassium 3.5 mEq/L (3.5-5.1) 12/19/23 05:57 BUN 9 mg/dL (7-18) 12/19/23 05:57 Creatinine 0.46 mg/dL (0.55-1.02) L 12/19/23 05:57 Glucose 102 mg/dL (74-106) 12/19/23 05:57 Phosphorus 3.2 mg/dL (2.5-4.9) 12/19/23 05:57 Magnesium 2.3 mg/dL (1.6-2.4) 12/16/23 23:57 Total Bilirubin 0.4 mg/dL (0.2-1.0) 12/16/23 18:40 AST 20 U/L (15-37) 12/16/23 18:40 ALT 19 U/L (13-56) 12/16/23 18:40 Alkaline Phosphatase 146 U/L (45-117) H 12/16/23 18:40 <Villarreal,Unique Garry - Last Filed: 12/19/23 09:21> Vital Signs/Physical Exam: Temp Pulse Resp BP Pulse Ox 97.4 F 68 18 116/67 99 12/19/23 08:00 12/19/23 08:33 12/19/23 08:00 12/19/23 08:33 12/19/23 08:00 Laboratory Data at Discharge: WBC 5.90 thou/uL (4.3-10.9) 12/17/23 06:15 Hgb 11.2 g/dL (12.0-15.0) L D 12/17/23 06:15 Hct 34.2 % (36.0-45.0) L 12/17/23 06:15 Plt Count 301 thou/uL (152-406) 12/17/23 06:15 Sodium 131 mEq/L (136-145) L 12/19/23 05:57 Potassium 3.5 mEq/L (3.5-5.1) 12/19/23 05:57 BUN 9 mg/dL (7-18) 12/19/23 05:57 Creatinine 0.46 mg/dL (0.55-1.02) L 12/19/23 05:57 Glucose 102 mg/dL (74-106) 12/19/23 05:57 Phosphorus 3.2 mg/dL (2.5-4.9) 12/19/23 05:57 Magnesium 2.3 mg/dL (1.6-2.4) 12/16/23 23:57 Total Bilirubin 0.4 mg/dL (0.2-1.0) 12/16/23 18:40 AST 20 U/L (15-37) 12/16/23 18:40 ALT 19 U/L (13-56) 12/16/23 18:40 Alkaline Phosphatase 146 U/L (45-117) H 12/16/23 18:40 <Timo Page - Last Filed: 12/19/23 13:05> Diet: Low sodium Activity: Ad matthew <Villarreal,Unique Garry - Last Filed: 12/19/23 09:21> <Timo Page - Last Filed: 12/19/23 13:05> Home Medications: Benzonatate [Tessalon Perle*] 100 mg PO TID PRN #60 cap 08/01/23 Apixaban [Eliquis] 5 mg PO BID 12/16/23 Aspirin Tab [Adia Aspirin*] 325 mg PO DAILY 12/16/23 Atorvastatin Calcium [Lipitor] 80 mg PO BEDTIME 12/16/23 Gabapentin [Neurontin*] 200 mg PO TID 12/16/23 Amlodipine [Norvasc*] 10 mg PO DAILY 60 Days #60 tab 12/19/23 Apixaban [Eliquis] 5 mg PO BID 12/19/23 Levothyroxine [Synthroid*] 0.125 mg PO DAILYAC #30 tab 12/19/23 carvediloL [Coreg*] 12.5 mg PO BID 30 Days #60 tab 12/19/23 New Medications: carvediloL [Coreg*] 12.5 mg PO BID 30 Days #60 tab Amlodipine [Norvasc*] 10 mg PO DAILY 60 Days #60 tab Levothyroxine [Synthroid*] 0.125 mg PO DAILYAC #30 tab Physician Discharge Instructions: The patient has a history of hyperthyroidism, on methimazole, though TSH level on this admission is 15.7, free T4 is low 0.57. Stop Methimazole, started on Levothyroxine 125mcg po daily. Must follow up with endocrinology. Avoid chlorthalidone and avoid hydrochlorothiazide because of acute kidney injury and hyponatremia. History of congestive heart failure. Blood pressure medications adjusted. On admission, slightly volume depleted. Continue to monitor and trend blood pressure and intake and output for PCP. Please continue trying to quit smoking and cut back/stop drinking alcohol. Okay to DC IV and DC home Follow-up with primary care provider in 1 to 2 weeks Follow up at the Radiology unit within 1 week for FNA. Hold Eliquis until after the procedure. Follow-up with nephrology in 1 to 2-weeks Follow-up with endocrinology as soon as possible Please call the inpatient unit for any questions or concerns regarding hospital stay Return to the ER for worsening symptoms Followup: Myriam Paulson FNP [Primary Care Provider] - Bishnu Abdi MD [ACTIVE - CAN ADMIT] -
[2023-12-19] MEDS: POTASSIUM CL SA 10 MEQ TAB PO ONE (12:01)
--- NOTE | 2023-12-19 12:41 | PN ---
Date of Progress Note: 12/19/2023 Subjective: The patient was admitted to the hospital with hyponatremia secondary to hydrochlorothiaz rolando. After hydration, kidney function has improved, sodium normalized. Physical Examination: Vital Signs: Blood pressure 116/67, pulse of 68, afebrile. Chest: Clear to auscultation. Heart: S1, S2. Regular. Abdomen: Soft, nontender. Extremities: No edema. Neuro: Alert. No focality. Laboratory Data: Hemoglobin 11.2. Sodium 131, potassium 3.5, bicarb 25, BUN 9, creatinine 0.4. Pierre cium 8.9, phosphorus 3.2. Current Medications: Include aspirin, nicotine patch, Eliquis, amlodipine, carvedilol 12.5, Tylenol, Zofran, levothyroxine. Assessment And Plan: 1.Hyponatremia secondary to hydrochlorothiazide, recovered, resolved. I will discontinue IV fluid. 2.Hypertension, controlled, optimal with the presence of hyponatremia. Please hold hydrochlorothiaz rolando or chlorthalidone. Continue current treatment. 3.Hypokalemia. We will supplement. The patient is cleared from the renal standpoint for discharge planning. MARY KAY Voice ID: [id number] Report ID: [id number]
[2023-12-19 14:11] VITALS: BP 141/79; TEMP 96.9
[2023-12-20] MEDS ORDERED: LEVOTHYROXINE SOD 0.1 MG TAB PO SCH (06:30)
== END 2023-12-19 15:02 | disposition home or self-care (01) | DRG 641 ==
LOC: ER 18:03 → ERHOLD 20:46 → 4TH 21:29 → OBSVTOIN 12-18 22:10
PROVIDERS: ADMIT Internal Medicine; ATTEND Hospitalist
DX: E87.1 Hypo-osmolality and hyponatremia (principal); N17.9 Acute kidney failure, unspecified; E87.6 Hypokalemia; E03.9 Hypothyroidism, unspecified; I11.0 Hypertensive heart disease with heart failure; I50.9 Heart failure, unspecified; E78.00 Pure hypercholesterolemia, unspecified; F17.210 Nicotine dependence, cigarettes, uncomplicated; F17.220 Nicotine dependence, chewing tobacco, uncomplicated; I73.9 Peripheral vascular disease, unspecified; T50.2X5A Adverse effect of carbonic-anhydrase inhibitors, benzothiadiazides and other diuretics, initial encounter; R05.3 Chronic cough; Z91.018 Allergy to other foods; Z79.01 Long term (current) use of anticoagulants; Z79.02 Long term (current) use of antithrombotics/antiplatelets; Z79.899 Other long term (current) drug therapy; Z86.711 Personal history of pulmonary embolism; Z86.718 Personal history of other venous thrombosis and embolism
CPT/HCPCS: 36415; 71045; 71046; 80048; 80053; 80069; 81001; 83735; 83930; 83935; 84295; 84300; 84439; 84443; 85025; 94640; 96360; 99285; G0378; J0360; J7030; J7605; J7613

== ENCOUNTER 2024-03-03 13:14 | Inpatient (IN) | payer OTHER ==
--- OUTSIDE RECORDS SUMMARY | 2024-03-03 13:23 | XMS REPORT | Continuity of Care Document ---
Author Name Unknown Address [address] [facility] Carlos Eduardo. [address] [place] [address] [facility] thconnect Address [address] [facility]. [address] [place] [address] Care Team Providers Care Disbursement Clerk Name Role Phone Jose Martin ROSS, [facility] Primary Care Physician [phone] NOEMI ARGUETA Attending Clinician Unavailable PAUL KIRKLAND Attending Clinician UnavailNILSA Chase Attending Clinician Unavailable NILSA DE JESUS Attending Clinician Unavailable Noemi Argueta MD Attending Clinician [phone], [facility] Attending Clinician Unavailable CHARLEY VEGA Attending Clinician Johnna Charley Banks MD Attending Clinician MANAV DE LA TORRE K.HDavid Attending Clinician Unavaila ble Doctor Unassigned, [place] Attending Clinician U reyes Vale RN, Elizabeth Attending Clinician Unavailable Paul Kolb Attending Clinician [phone] Ankit Salomon MD Attending Clinician [phone] ANGELO ALVARADO Attending Clinician Unavailable YENI AVILES Attending Clinician Unavailable RADIOLOGY Attending Clinician Unavailable Manav De La Torre MD [facility]. Attending Clinician [phone] Pob, [facility] Main Attending Clinician UnavailNILSA Chase Admitting Clinician Unavailable NOEMI ARGUETA Admitting Clinician Unavailable ANKIT SALOMON Admitting Clinician Unavailable Payers Payer Name Policy Type Policy Number Effective Date Expirati on Date Source [place] [place] PREMIUM HMO [id number] 2023 00:00:00 [employer] MEDICARE OUT OF NETWORK [id number] 2022 00:00:00 [employer] MEDICARE ADVANTAGE [id number] 2019 00:00:00 Problems Condition Name Condition Details Condition Category Status Onset Date Resolution Date Last Treatment Date Treating Clinician Comments Source Dyslipidem ia Dyslipidem ia Disease Active 01-21 00:00: 00 [facility] Paroxysmal atrial fibrillati on Paroxysmal atrial fibrillati on Disease Active 01-21 00:00: 00 [facility] Cardiac arrhythmia , unspecifie d cardiac arrhythmia type Cardiac arrhythmia , unspecifie d cardiac arrhythmia type Disease Active 10-22 00:00: 00 [facility] Essential hypertensi on Essential hypertensi on Disease Active 10-22 00:00: 00 [facility] Mixed hyperlipid emia Mixed hyperlipid emia Disease Active 10-22 00:00: 00 [facility] Tobacco abuse Tobacco abuse Disease Active 10-22 00:00: 00 [facility] PAD (periphera l artery disease) PAD (periphera l artery disease) Disease Active 10-22 00:00: 00 [facility] 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 History of tobacco use Cigarette Smoker [facility] Exposure to SARS-CoV-2 (event) Not sure [facility] History of Social function 2023-11-16 00:00:00 2023-11-16 00:00:00 [facility] Tobacco Comment 2023-09-14 00:00:00 2023-09-14 00:00:00 2 Ciggs a week [facility] Tobacco use and exposure 2023-09-14 00:00:00 2023-09-14 00:00:00 Smokeless tobacco non-user [facility] Sex assigned at 1955 00:00:00 1955 00:00:00 [facility] Smoking Status Start Date Stop Date Source Occasional tobacco smoker 2023-09-14 00:00:00 [facility] Medications Ordered Medication Name Filled Medication Name Start Date Stop Date Current Medication? Ordering Clinician Indication Dosage Frequency Signature (SIG) Comments Components Source lovastatin 20 mg tablet 01-21 13:03: 46 01-21 00:00 :00 No 20mg Take 1 tablet by mouth at bedtime. [facility] atorvastati n 80 mg tablet 01-21 00:00: 00 Yes [id number] 80mg Take 1 tablet by mouth at bedtime. [facility] amLODIPine 5 mg tablet 01-21 00:00: 00 01-22 04:59 :00 Yes [id number] 5mg Take 1 tablet by mouth in the morning. [facility] carvediloL 12.5 mg tablet 01-21 00:00: 00 01-22 04:59 :00 Yes [id number] 12.5mg Take 1 tablet by mouth in the morning and 1 tablet in the evening. Take with meals. [facility] lovastatin 20 mg tablet 12-10 12:31: 39 Yes 20mg Take 1 tablet by mouth at bedtime. [facility] Eliquis 5 mg tablet 12-10 00:00: 00 Yes 1mg Herman Banks amlodipine 5 mg tablet 12-08 00:00: 00 Yes 1mg Herman Gregg Darren methimazole 5 mg tablet 12-08 00:00: 00 Yes 1mg Herman Banks gabapentin 100 mg capsule 12 00:00: 00 Yes 2mg Herman Banks lovastatin 20 mg tablet 11-25 18:08: 14 Yes 20mg Take 1 tablet by mouth at bedtime. [facility] methimazole 5 mg tablet 11-22 00:00: 00 Yes 1mg Herman Banks carvedilol 6.25 mg tablet 10-23 00:00: 00 Yes mg Herman Banks ATORVASTATI N 80 MG 10-22 00:00: 00 Yes Herman Banks atorvastati n 80 mg tablet 10-22 00:00: 00 01-21 00:00 :00 No [id number] 80mg Take 1 tablet by mouth at bedtime. [facility] methIMAzole 5 mg tablet 10-01 00:00: 00 Yes 5mg Take 1 tablet by mouth in the morning. [facility] Eliquis 5 mg tablet 09-28 00:00: 00 Yes 1mg Herman Banks gabapentin 100 mg capsule 09-28 00:00: 00 Yes TAKE 2 CAPSULES BY MOUTH 3 TIMES A DAY [facility] APPLY THIN LAYER TO AFFECTED AREAS ON TRUNK & EXTREMITIES TWICE A DAY X 2 WEEKS/MONTH -19 00:00: 00 Yes Herman Banks methimazole 5 mg tablet 3-06 00:00: 00 Yes 1mg Herman Banks TAKE 1 TABLET BY MOUTH TWICE A DAY 00:00: 00 10-28 00:00 :00 No 100 Herman Banks lactated ringers IV infusion 1,000 mL 08-24 17:00: 00 08-24 18:02 :05 No 1000mL at 999 mL/hr, 1,000 mL, Intravenou s, ONCE, 1 dose, On Thu08/24/23 at 1100, Routine [facility] apixaban (ELIQUIS) tablet 5 mg 08-24 02:00: 00 Yes 5mg 5 mg, Oral, BID, First dose (after last modificati on) on 08/23/23 at 1999, Until Discontinu ed, Routine
Indicatio ns: DVT/PE [facility] gabapentin 100 mg capsule 08-24 00:00: [...] 360 days. Indication s: atrial fibrillati on [facility] aspirin 81 mg chewable tablet 08-24 00:00: 00 08-19 05:59 :00 No [id number] 81mg Take 1 tablet by mouth in the morning for 360 days. [facility] gabapentin 100 mg capsule 08-24 00:00: 00 09-23 04:59 :00 No [id number] 200mg Take 2 capsules by mouth in the morning and 2 capsules at noon and 2 capsules in the evening. Do all this for 30 days. [facility] acetaminoph en 325 mg tablet 08-24 00:00: 00 09-07 04:59 :00 No [id number] 650mg Take 2 tablets by mouth every 6 (six) hours for 14 days. [facility] ibuprofen 400 mg tablet 08-24 00:00: 00 09-07 04:59 :00 No [id number] 400mg Take 1 tablet by mouth in the morning and 1 tablet at noon and 1 tablet in the evening. Take with meals. Do all this for 14 days. [facility] methIMAzole 5 mg tablet 08-24 00:00: 00 09-07 04:59 :00 No [id number] 5mg Take 1 tablet by mouth in the morning for 14 days. [facility] oxyCODONE 5 mg immediate release tablet 08-24 00:00: 00 08-31 05:59 :00 No [id number] 5mg Take 1 tablet by mouth every 6 (six) hours as needed for Pain (scale 7-10) for up to 7 days. Indication s: acute pain [facility] gabapentin (NEURONTIN) capsule 200 mg 08-23 20:00: 00 Yes 200mg 200 mg, Oral, TID, First dose on 08/23/23 at 1400, Until Discontinu ed, Routine [facility] ibuprofen (IBU) tablet 400 mg 08-23 15:30: 00 Yes 400mg 400 mg, Oral, TID MEALS, First dose on 08/23/23 at 0930, Until Discontinu ed, Routine [facility] acetaminoph en (TYLENOL) tablet 650 mg 08-23 15:30: 00 Yes 650mg 650 mg, Oral, Q6H, First dose on 08/23/23 at 0930, Until Discontinu ed, Routine [facility] methocarbam oL (ROBAXIN) tablet 500 mg 08-23 15:30: 00 Yes 500mg 500 mg, Oral, QID, First dose on 08/23/23 at 0930, Until Discontinu ed, Routine [facility] oxyCODONE immediate release tablet 5 mg 08-23 15:15: 15 Yes 5mg 5 mg, Oral, Q6HPRN, Starting on 08/23/23 at 0915, Until Discontinu ed, Routine, Pain (scale 7-10)
F aculty member approving Restricted medication : NILSA DE JESUS [facility] sodium chloride tablet 1 g 08-22 23:00: 00 08-23 14:49 :00 No 1g 1 g, Oral, BID MEALS, 2 doses, First dose on 08/22/23 at 1700, Last dose on 08/23/23 at 0800, Routine [facility] magnesium sulfate in water 2 gram/50 mL (4 %) infusion 2 g 08-22 15:30: 00 08-22 18:37 :00 No 2g 2 g, IV Piggyback, Administer over 60 Minutes, ONCE, 1 dose, On Thu08/22/23 at 0930, Routine [facility] apixaban (ELIQUIS) tablet 2.5 mg 08-22 14:00: 00 08-23 18:03 :43 No 2.5mg 2.5 mg, Oral, BID, First dose on Thu08/22/23 at 0800, Until Discontinu ed, Routine
Indicatio ns: DVT/PE [facility] furosemide (LASIX) injection 20 mg 08-22 04:30: 00 08-22 05:26 :00 No 20mg 20 mg, IV Push, ONCE, 1 dose, On Thu08/21/23 at 2230, Routine [facility] methIMAzole (TAPAZOLE) tablet 5 mg 08-21 15:00: 00 Yes 5mg 5 mg, Oral, DAILY, First dose on Thu08/21/23 at 0900, Until Discontinu ed, Routine [facility] heparin 25,000 Units/250 mL (Premixed Bag) [...] INITIAL INFUSION RATE.&nbsp ; _ &nb sp;FOR [facility], [facility], AND [facility] ONLY &nbs p; [...] once therapeuti c levels are reached.<b r> [facility] heparin (1,000 unit/mL, 10 mL vial) 08-21 14:55: 20 Yes 3000U FOR REBOLUSING , Starting on Thu08/21/23 at 0855, Until Discontinu ed, Routine
Dosing based on aPTT testing parameters (refer to continuous heparin drip order)
[facility] carvediloL (COREG) tablet 12.5 mg 08-21 14:00: 00 Yes 12.5mg 12.5 mg, Oral, BID MEALS, First dose (after last modificati on) on Thu08/21/23 at 0800, Until Discontinu ed, Routine [facility] magnesium oxide (MAG-OX 400) tablet 400 mg 08-21 14:00: 00 08-22 13:59 :00 No 400mg 400 mg, Oral, BID, 2 doses, First dose on Thu08/21/23 at 0800, Last dose on Thu08/21/23 at 2000, Routine [facility] atorvastati n (LIPITOR) tablet 40 mg 08-21 03:00: 00 Yes 40mg 40 mg, Oral, QHS, First dose (after last modificati on) on Janette 08/20/23 at 2100, Until Discontinu ed, Routine [facility] heparin 25,000 Units/250 mL (Premixed Bag) in 0.45 % NS 08-21 02:00: 00 08-21 14:56 :53 No 500U/h 500 Units/hr (5 mL/hr), IV Infusion, TITRATE, Parameters in Admin. Instr., DO NOT TITRATE, Starting on Janette 08/20/23 at 2000 [facility] sulfur hexafluorid e microsphr (LUMASON) injection 5 mL 08-20 22:00: 00 08-20 22:00 :00 No [id number] 5mL 5 mL, Intravenou s, ONCE, 1 dose, On Janette 08/20/23 at 1600, Routine [facility] niCARdipine (CARDENE I.V.) 40 mg in NaCL 200 mL (RTU) infusion 08-20 21:17: 32 08-21 11:51 :17 No 2.5mg/h 2.5-15 mg/hr (12.5-75 mL/hr), IV Infusion, TITRATE, SBP Goal < 180 mmHg, Starting on Janette 08/20/23 at 1517
In itiate infusion at 2.5 mg/hr.&nbs p; Ti trate by 2.5 mg/hr every 5 minutes to 15 minutes as needed to achieve and maintain goal blood pressure. Maximum dose = 15 mg/hr. If goal not maintained at maximum allowed dose, contact prescriber .
[facility] ceFAZolin (ANCEF) injection 1,000 mg 08-20 21:15: 00 08-23 21:14 :00 No 1000mg 1,000 mg, Intravenou s, Q8H ABX, 9 doses, First dose on Janette 08/20/23 at 1515, Last dose on [place] 08/23/23 at 0715
Re ason for Anti-Infec tive: Documented Infection< br>Documen kendy Infection Site: Skin / Soft Tissue
Duration of Therapy: 7 days [facility] HYDROcodone -acetaminop hen (NORCO 5) 5-325 mg tablet 1 tablet 08-20 20:54: 44 Yes 1{tbl} 1 tablet, Oral, Q6HPRN, Starting on Janette 08/20/23 at 1454, Until Discontinu ed, Routine, Pain (scale 4-6) [facility] HYDROmorpho ne (DILAUDID) injection 0.5 mg 08-20 20:54: 12 08-22 20:53 :12 No .5mg 0.5 mg, Slow IV Push, Q4HPRN, Starting on Janette 08/20/23 at 1454, Until 08/22/23 at 1453, Routine, Pain (scale 7-10)
U se approved by (Faculty): [facility] aspirin chewable tablet 81 mg 08-20 15:00: 00 Yes 81mg 81 mg, Oral, DAILY, First dose on Thu08/20/23 at 0900, Until Discontinu ed, Routine [facility] pantoprazol e (PROTONIX) EC tablet 40 mg 08-20 15:00: 00 Yes 40mg 40 mg, Oral, DAILY, First dose on Thu08/20/23 at 0900, Until Discontinu ed, Routine
Indicatio n for use: None of the above [facility] amLODIPine (NORVASC) tablet 5 mg 08-20 15:00: 00 Yes 5mg 5 mg, Oral, DAILY, First dose on Janette 08/20/23 at 0900, Until Discontinu ed, Routine [facility] heparin 1,000 unit/mL 10,000 Units in NaCl 0.9% (NS) 1,000 mL OR irrigation 08-20 14:38: 00 08-20 19:59 :23 No PRN, Starting on Janette 08/20/23 at 0838, Intra-op [facility] carvediloL (COREG) tablet 12.5 mg 08-20 14:00: 00 08-21 11:51 :10 No 12.5mg 12.5 mg, Oral, BID MEALS, First dose on Janette 08/20/23 at 0800, Until Discontinu ed, Routine [facility] heparin 25,000 Units/250 mL (Premixed Bag) in 0.45 % NS 08-20 05:25: 23 08-20 19:59 :23 No 0U/h 0-2,350 Units/hr (0-23.5 mL/hr), IV Infusion, TITRATE, Parameters in Admin. Instr., Starting on 08/19/23 at 2325
In itiate dosing:&nb sp; & [...] INITIAL INFUSION RATE.&nbsp ; _ &nb sp;FOR [place], [facility], AND [facility] ONLY &nbs p; - [...] once therapeuti c levels are reached.<b r> [facility] heparin (1,000 unit/mL, 10 mL vial) 08-20 05:25: 18 08-20 19:59 :23 No 3000U FOR REBOLUSING , Starting on Thu08/19/23 at 2325, Until Janette 08/20/23 at 1359, Routine
Dosing based on aPTT testing parameters (refer to continuous heparin drip order)
[facility] iohexol (OMNIPAQUE 350 BULK-150 mL) injection 120 mL 08-20 05:00: 00 08-20 04:49 :00 No [id number] 120mL 120 mL, Intravenou s, ONCE, 1 dose, On Thu08/19/23 at 2300, Routine [facility] atorvastati n (LIPITOR) tablet 20 mg 08-20 03:00: 00 08-20 05:30 :48 No 20mg 20 mg, Oral, QHS, First dose on Thu08/19/23 at 2100, Until Discontinu ed, Routine [facility] traMADoL (ULTRAM) tablet 50 mg 08-20 02:36: 10 Yes 50mg 50 mg, Oral, Q4HPRN, Starting on Thu08/19/23 at 2035, Until Discontinu ed, Routine, Pain (scale 4-6) [facility] acetaminoph en (TYLENOL) tablet 650 mg 08-20 02:36: 07 Yes 650mg 650 mg, Oral, Q6HPRN, Starting on Thu08/19/23 at 2035, Until Discontinu ed, Routine, Pain (scale 1-3) [facility] ondansetron (ZOFRAN (PF)) injection 4 mg 08-20 02:36: 06 Yes 4mg 4 mg, Slow IV Push, Q6HPRN, Starting on Thu08/19/23 at 2035, Until Discontinu ed, Routine, Nausea and Vomiting (N/V) [facility] heparin 1000 unit/mL injection Soln 5,000 Units 08-19 21:30: 00 08-19 22:09 :00 No 5000U 5,000 Units, IV Push, ONCE, 1 dose, On Thu08/19/23 at 1530, Routine [facility] heparin 25,000 Units/250 mL (Premixed Bag) [...] INITIAL INFUSION RATE.&nbsp ; _ &nb sp;FOR [place], [facility], AND [facility] ONLY &nbs p; - [...] therapeuti c levels are reached.<b r> [facility] cilostazol 100 mg tablet 2-12 00:00: 00 Yes mg [facility] carvedilol 6.25 mg tablet 2-05 00:00: 00 Yes mg Herman Banks APPLY TO AFFECTED AREA 3 TIMES A DAY 2- 00:00: 00 Yes Herman Banks TAKE 1 CAPSULE BY MOUTH THREE TIMES A DAY NEEDED COUGH 2- 00:00: 00 Yes Herman Banks amlodipine 5 mg tablet 1-17 00:00: 00 Yes mg Herman Banks chlorthalid one 25 mg tablet 2022-06 00:00: 00 Yes mg [facility] METHIMAZOLE 5MG 2022-06 00:00: 00 Yes Herman Banks TAKE 1 TABLET BY MOUTH EVERY DAY 2022-06 00:00: 00 Yes 5 Herman Banks lovastatin 20 mg tablet 2022-06 0-07 00:00: 00 Yes mg Herman Banks TAKE 1 TABLET ONCE DAILY. 2022-06 0-05 00:00: 00 10-28 00:00 :00 No 5 Herman Banks Xarelto 20 mg tablet 9-13 00:00: 00 Yes mg Herman [facility] XARELTO 20MG 9-07 00:00: 00 Yes Herman Banks TAKE 1 TABLET BY MOUTH EVERY 6 HOURS NEEDED FOR PAIN 02-23 00:00: 00 Yes Herman Banks TAKE 1 TABLET ONCE DAILY. 8-08 00:00: 00 10-28 00:00 :00 No 5 [facility] METHIMAZOLE 5MG -26 00:00: 00 Yes 5000 Herman Banks AMLODIPINE 5MG -20 00:00: 00 Yes 5000 Herman Banks TAKE 1 TABLET DAILY. -20 00:00: 00 10-28 00:00 :00 No 10 Herman Banks TAKE 1 TABLET ONCE DAILY. 7-20 00:00: 00 10-28 00:00 :00 No 5 Herman Banks TAKE 1 TABLET BY MOUTH TWICE A DAY WITH MEALS 0 7-10 00:00: 00 10-28 00:00 :00 No 625 Herman Banks LOVASTATIN 20MG 6-18 00:00: 00 Yes Herman Banks TAKE 1 TABLET BY MOUTH TWICE A DAY WITH MEALS 0 5-30 00:00: 00 Yes Herman Banks TAKE 1 TABLET BY MOUTH EVERY DAY 0 530 00:00: 00 Yes Herman Banks TAKE 1 TABLET DAILY. 11-25 00:00: 00 10-28 00:00 :00 No 25 Herman Banks TAKE 1 TABLET ONCE DAILY. 11-25 00:00: 00 10-28 00:00 :00 No 5 Herman Banks TAKE 1 TABLET BY MOUTH EVERY DAY 0 5- 00:00: 00 10-28 00:00 :00 No 5 Herman Banks TAKE 1 TABLET BY MOUTH EVERY DAY 4-24 00:00: 00 10-28 00:00 :00 No 5 Herman Banks TAKE 1 TABLET EVERY 8 HOURS NEEDED. 4-06 00:00: 00 10-28 00:00 :00 No 800 Herman Banks TAKE 1 TABLET BY MOUTH EVERY DAY 09-24 00:00: 00 Yes Herman Banks TAKE 1 TABLET DAILY. - 00:00: 00 10-28 00:00 :00 No 25 Herman Banks TAKE 1 TABLET DAILY. 3- 00:00: 00 10-28 00:00 :00 No 20 Herman Banks ALBUTEROL PA HFA 200 INH 2-09 00:00: 00 Yes Herman Banks PREDNISONE 20MG 2-09 00:00: 00 Yes Herman Banks TAKE 1 CAPSULE BY MOUTH EVERY 8 HOURS NEEDD FOR COUIGH 2-08 00:00: 00 Yes Herman Banks INHALE 2 PUFFS EVERY 4 TO6 HOURS NEEDED 2022-0 2-08 00:00: 00 Yes Herman Banks 10 ML Q 4 TO 6 HOURS PRN COUGH FOR 5 DAYS 2022-0 2-06 00:00: 00 05- 00:00 :00 No [id number] Herman Banks HYDROCO/APA P 7.5-325 2021-1 1-10 00:00: 00 Yes Herman Banks TAKE 1 TABLET BY MOUTH TWICE A DAY 2021-0 7-08 00:00: 00 Yes 625 Herman Banks Dose Unknown 2021-0 6-30 00:00: 00 Yes Herman Banks TAKE 1 TABLET BY MOUTH EVERY DAY AT NIGHT 2021-0 6-29 00:00: 00 Yes Herman Banks Dose Unknown 2021-0 6-29 00:00: 00 Yes Herman Banks &lt 2022-0 6-29 00:00: 00 Yes Herman Banks Dose Unknown 2021-0 6-28 00:00: 00 Yes Herman Banks CARVEDILOL 6.25MG 2021-0 6-24 00:00: 00 Yes [id number] Herman Banks TAKE 1 TABLET BY MOUTH EVERY DAY AT NIGHT 2021-0 6-23 00:00: 00 Yes Herman Banks Dose Unknown 2021-0 6-23 00:00: 00 Yes Herman Banks &lt 2022-0 6-22 00:00: 00 Yes Herman Banks &lt 2022-0 6-16 00:00: 00 Yes Herman Banks &lt 2022-0 6-16 00:00: 00 Yes Herman Banks &lt 2022-0 6-10 00:00: 00 Yes [facility] amlodipine 5 mg tablet 2021-0 5-31 00:00: 00 Yes 1mg Herman Banks carvedilol 6.25 mg tablet 2021-0 5-31 00:00: 00 Yes 1mg Herman Banks lovastatin 20 mg tablet 2021-0 5-31 00:00: 00 Yes 1mg Herman Banks hydrochloro thiazide 12.5 mg capsule 2021-0 5-31 00:00: 00 Yes 1mg Herman Banks Dose Unknown 2021-0 5-31 00:00: 00 Yes Herman Banks TAKE 1 TABLET BY MOUTH EVERY 8 HOURS NEEDED FOR PAIN 11-26 00:00: 00 Yes Herman Banks Dose Unknown 11-19 00:00: 00 Yes Herman Banks Dose Unknown 11-18 00:00: 00 Yes Herman [facility] amlodipine 5 mg tablet 03-20 00:00: 00 Yes 1mg Herman Banks carvedilol 6.25 mg tablet 03-20 00:00: 00 Yes 1mg Herman Banks lovastatin 20 mg tablet 03-20 00:00: 00 Yes 1mg Hemran Banks hydrochloro thiazide 12.5 mg capsule 03-20 00:00: 00 Yes 1mg Herman Banks ibuprofen 800 mg tablet 02-14 00:00: 00 Yes 1mg Herman Banks cyclobenzap rine 5 mg tablet 02-14 00:00: 00 Yes 1mg Herman Banks amlodipine 5 mg tablet - 00:00: 00 Yes 1mg Herman Banks carvedilol 6.25 mg tablet 3- 00:00: 00 Yes 1mg Herman Banks lovastatin 20 mg tablet 3- 00:00: 00 Yes 1mg Herman Banks hydrochloro thiazide 12.5 mg capsule 3- 00:00: 00 Yes 1mg Herman Banks hydroCHLORO thiazide 12.5 mg capsule 2 00:00: 00 01-21 00:00 :00 No [id number] TAKE 1 CAPSULE BY MOUTH EVERY DAY [facility] AMLODIPINE 5 mg tablet 2019-06 00:00: 00 01-21 00:00 :00 No [id number] TAKE 1 TABLET BY MOUTH EVERY DAY [facility] CARVEDILOL 12.5 mg tablet 2019-06 00:00: 00 01-21 00:00 :00 No [id number] TAKE 1 TABLET BY MOUTH TWICE A DAY WITH MEALS [facility] atorvastati n 20 mg tablet 2019-06 00:00: 00 Yes 20mg Take 1 tablet by mouth at bedtime. [facility] hydroCHLORO thiazide 12.5 mg capsule 2019-06 00:00: 00 08-05 00:00 :00 No [id number] TAKE ONE CAPSULE BY MOUTH EVERY DAY [facility] amLODIPine 5 mg tablet 2019-06 00:00: 00 06-14 00:00 :00 No [id number] 5mg Take 1 tablet by mouth daily for 30 days. [facility] carvediloL 12.5 mg tablet 2019-06 00:00: 06-14 00:00 :00 No [id number] 12.5mg Take 1 tablet by mouth 2 (two) times daily with meals for 30 days. [facility] lovastatin 20 mg tablet 2019-06 00:00: 00 06-13 00:00 :00 No [id number] 20mg Take 1 tablet by mouth daily for 30 days. [facility] amlodipine 5 mg tablet 02-27 00:00: [...] Take 1 tablet by mouth at bedtime. [facility] hydroCHLORO thiazide 12.5 mg capsule 03-09 00:00: 06-08 00:00 :00 No [id number] TAKE ONE CAPSULE BY MOUTH EVERY DAY [facility] amLODIPine 5 mg tablet 03-04 00:00: 00 06-08 00:00 :00 No [id number] 5mg Take 1 tablet by mouth daily. [facility] carvedilol 12.5 mg tablet 02-23 00:00: 00 06-08 00:00 :00 No [id number] 12.5mg Take 1 tablet by mouth 2 (two) times daily with meals. [facility] amlodipine 5 mg tablet 02-18 00:00: [...] 07-21 00:00: 00 11-25 00:00 :00 No [id number] TAKE 1 TABLET BY MOUTH EVERY 12 HOURS FOR 10 DAYS [facility] HYDROCHLORO THIAZIDE 12.5 mg capsule 12-23 00:00: 00 03-08 00:00 :00 No [id number] TAKE ONE CAPSULE BY MOUTH EVERY DAY [facility] Zithromax Z-Lj 250 mg tablet 2016-06 [...] Observation Time Observation Value Comments S pardeep Systolic blood pressure 2024-01-22 16:52:00 134 mm[Hg] [facility] Diastolic blood pressure 2024-01-22 16:52:00 71 mm[Hg] [facility] Heart rate 2024-01-22 16:52:00 73 /min [facility] Respiratory rate 2024-01-22 16:52:00 19 /min [facility] Body height 2024-01-22 16:52:00 166.4 cm [facility] Body weight 2024-01-22 16:52:00 81.239 kg [facility] BMI 2024-01-22 16:52:00 29.35 kg/m2 [facility] Oxygen saturation in Arterial blood by Pulse oximetry 2024-01-22 16:52:00 100 /min [facility] Systolic blood pressure 2023-12-11 17:35:00 150 mm[Hg] [facility] Diastolic blood pressure 2023-12-11 17:35:00 81 mm[Hg] [facility] Heart rate 2023-12-11 17:35:00 74 /min [facility] Body temperature 2023-12-11 17:32:00 36.61 Cheryl [facility] Respiratory rate 2023-12-11 17:32:00 14 /min [facility] Body height 2023-12-11 17:32:00 167.6 cm [facility] Body weight 2023-12-11 17:32:00 79.833 kg [facility] BMI 2023-12-11 17:32:00 28.41 kg/m2 [facility] Oxygen saturation in Arterial blood by Pulse oximetry 2023-12-11 17:32:00 100 /min [facility] Systolic blood pressure 2023-11-26 21:47:00 143 mm[Hg] [facility] Diastolic blood pressure 2023-11-26 21:47:00 90 mm[Hg] [facility] Heart rate 2023-11-26 21:47:00 74 /min [facility] Oxygen saturation in Arterial blood by Pulse oximetry 2023-11-26 21:47:00 95 /min [facility] Respiratory rate 2023-11-26 21:45:00 24 /min [facility] Body temperature 2023-11-26 18:50:00 36.78 Cheryl [facility] Body height 2023-11-26 14:57:[address] [facility] Body weight 2023-11-26 14:57:00 76.7 kg [facility] BMI 2023-11-26 14:57:00 27.29 kg/m2 [facility] Systolic blood pressure 2023-11-26 19:45:00 133 mm[Hg] [facility] Diastolic blood pressure 2023-11-26 19:45:00 85 mm[Hg] [facility] Heart rate 2023-11-26 19:45:00 71 /min Un[facility] Respiratory rate 2023-11-26 19:45:00 13 /min [facility] Oxygen saturation in Arterial blood by Pulse oximetry 2023-11-26 19:45:00 92 /min [facility] Body temperature 2023-11-26 18:50:00 36.78 Cheryl [facility] Body height 2023-11-26 14:57:00 167.6 cm [facility] Body weight 2023-11-26 14:57:00 76.7 kg [facility] BMI 2023-11-26 14:57:00 27.29 kg/m2 [facility] Systolic blood pressure 2023-11-16 21:09:00 134 mm[Hg] [facility] Diastolic blood pressure 2023-11-16 21:09:00 80 mm[Hg] [facility] Heart rate 2023-11-16 21:09:00 80 /min Un[facility] Oxygen saturation in Arterial blood by Pulse oximetry 2023-11-16 21:09:00 99 /min [facility] Body temperature 2023-11-16 21:04:00 36.61 Cheryl [facility] Respiratory rate 2023-11-16 21:04:00 16 /min [facility] Body weight 2023-11-16 21:04:00 77.111 kg [facility] BMI 2023-11-16 21:04:00 27.44 kg/m2 Univ [facility] Systolic blood pressure 2023-10-23 15:07:00 138 mm[Hg] [facility] Diastolic blood pressure 2023-10-23 15:07:00 75 mm[Hg] [facility] Heart rate 2023-10-23 15:07:00 82 /min [facility] Body temperature 2023-10-23 15:02:00 36.5 Cheryl [facility] Respiratory rate 2023-10-23 15:02:00 20 /min [facility] Body height 2023-10-23 15:02:00 167.6 cm [facility] 2023-10-23 15:02:[address] [facility] BMI 2023-10-23 15:02:00 27.76 kg/m2 [facility] Oxygen saturation in Arterial blood by Pulse oximetry 2023-10-23 15:02:00 99 /min [facility] Systolic blood pressure 2023-09-14 21:42:00 115 mm[Hg] [facility] Diastolic blood pressure 2023-09-14 21:42:00 69 mm[Hg] [facility] Heart rate 2023-09-14 21:42:00 110 /min [facility] Respiratory rate 2023-09-14 21:42:00 18 /min [facility] Body height 2023-09-14 21:42:[address] [facility] Body weight 2023-09-14 21:42:[address] [facility] BMI 2023-09-14 21:42:00 28.68 kg/m2 [facility] Oxygen saturation in Arterial blood by Pulse oximetry 2023-09-14 21:42:00 99 /min [facility] Systolic blood pressure 2023-08-24 22:39:00 131 mm[Hg] [facility] Diastolic blood pressure 2023-08-24 22:39:00 65 mm[Hg] [facility] Heart rate 2023-08-24 22:39:00 77 /min [facility] Body temperature 2023-08-24 22:39:00 36.78 Cheryl [facility] Respiratory rate 2023-08-24 22:39:00 17 /min [facility] Oxygen saturation in Arterial blood by Pulse oximetry 2023-08-24 22:39:00 100 /min [facility] Body height 2023-08-22 18:20:[address] [facility] Body weight 2023-08-22 18:20:[address] [facility] BMI 2023-08-22 18:20:00 25.85 kg/m2 Univ [facility] Systolic blood pressure 2023-08-20 10:40:00 137 mm[Hg] [facility] Diastolic blood pressure 2023-08-20 10:40:00 91 mm[Hg] [facility] Heart rate 2023-08-20 10:40:00 95 /min [facility] Body temperature 2023-08-20 10:40:00 36.67 Cheryl [facility] Respiratory rate 2023-08-20 10:40:00 16 /min [facility] Oxygen saturation in Arterial blood by Pulse oximetry 2023-08-20 10:40:00 100 /min [facility] Body height 2023-08-20 01:47:00 167.6 cm [facility] Body weight 2023-08-20 01:47:00 72.6 kg [facility] BMI 2023-08-20 01:47:00 25.85 kg/m2 [facility] Body weight 2020-06-08 17:41:[address] [facility] BMI 2020-06-08 17:41:00 28.49 kg/m2 [facility] Oxygen saturation in Arterial blood by Pulse oximetry 2020-06-08 17:41:00 100 /min [facility] Systolic blood pressure 2020-06-08 17:41:00 129 mm[Hg] [facility] Diastolic blood pressure 2020-06-08 17:41:00 79 mm[Hg] [facility] Heart rate 2020-06-08 17:41:00 79 /min Unive [facility] Body height 2020-06-08 17:41:00 167.6 cm [facility] Systolic blood pressure 2019-02-23 13:48:00 137 mm[Hg] [place] [facility] Diastolic blood pressure 2019-02-23 13:48:00 91 mm[Hg] [place] [facility] Heart rate 2019-02-23 13:46:00 93 /min Unive [facility] Respiratory rate 2019-02-23 13:46:00 20 /min [facility] Body height 2019-02-23 13:46:00 167.6 cm [facility] Body weight 2019-02-23 13:46:00 76.204 kg [facility] BMI 2019-02-23 13:46:00 27.12 kg/m2 [facility] Oxygen saturation in Arterial blood by Pulse oximetry 2019-02-23 13:46:00 98 /min [facility] BP Systolic 2023-12-29 11:24:00 117 mm[Hg] Step hen F Darren BP Diastolic 2023-12-29 11:24:00 80 mm[Hg] Carlos Eduardo phen F Darren Weight Measured 2023-12-29 11:24:00 176.40 pounds Herman F Darren Height Measured 2023-12-29 11:24:00 66.33 inches Herman F Darren Body Temperature 2023-12-29 11:24:00 97.90 degrees Herman F Darren Heart Rate 2023-12-29 11:24:00 76.00 /min Viky en F Darren Respiratory Rate 2023-12-29 11:24:00 17.00 /min Herman F Darren BP Systolic 2023-12-12 09:41:00 161 mm[Hg] Step hen F Darren BP Diastolic 2023-12-12 09:41:00 81 mm[Hg] Carlos Eduardo phen F Darren Weight Measured 2023-12-12 09:41:00 177.00 pounds Herman F Darren Height Measured 2023-12-12 09:41:00 66.33 inches Herman F Darren Body Temperature 2023-12-12 09:41:00 98.30 degrees Herman F Darren Heart Rate 2023-12-12 09:41:00 78.00 /min Viky en F Darren Respiratory Rate 2023-12-12 09:41:00 Herman F Darren BP Systolic 2023-12-09 11:45:00 139 mm[Hg] Step [...] Measured 2023-09-29 17:18:00 169.60 pounds Herman F Darren Height Measured 2023-09-29 17:18:00 66.33 inches Herman [...] Height Measured 2023-05-26 08:15:00 66.33 inches Herman F Darren Body Temperature 2023-05-26 08:15:00 98.20 degrees Herman F Darren Heart Rate 2023-05-26 08:15:00 75.00 /min Viky Banks Respiratory Rate 2023-05-26 08:15:00 19.00 /min Herman Banks BP Systolic 2023-04-06 09:36:00 113 mm[Hg] Josef Banks BP Diastolic 2023-04-06 09:36:00 85 mm[Hg] Carlos Eduardo Banks Weight Measured 2023-04-06 09:36:00 158.60 pounds Herman Banks Height Measured 2023-04-06 09:36:00 66.33 inches Herman Banks Body Temperature 2023-04-06 09:36:00 98.10 degrees Herman Banks Heart Rate 2023-04-06 09:36:00 97.00 /min Viky Banks Respiratory Rate 2023-04-06 09:36:00 19.00 /min Herman Banks Procedures Procedure Date / Time Performed Performing Clinician Source [place] TIME OR (NON-REPORTABLE) 2023-11-26 18:43:00 Neal [facility] [place] TIME OR (NON-REPORTABLE) 2023-11-26 18:43[facility]GIOGR[facility] EXTREMITY BILATERAL RS&I 2023-11-26 17:07[facility] AORTOGRAPHY ABDOMINAL SERIALOGRAPHY RS&I 2023-11-26 17:07:00 [facility] US VASC ACCESS SITS VSL PATENCY NDL ENTRY 2023-11-26 17:07:00 [facility] [address] ID SL[facility]V CATHJ 3RD+ ORD SLCTV ABDL PEL/LXTR BRFORMERLY [facility] 2023-11-26 17:07:00 [facility] CATHJ EA 2ND+ ORD ABDL PEL/LXTR [facility] 2023-11-26 17:07:00 [facility] [address] REVSC OPN/PRQ ILIAC ART W/STNT PLMT & ANGIOPLSTY 2023-11-26 17:07:00 [facility] [address] OPN/PRQ FEM/POP W/STNT/ATHRC/ANGIOP [facility] 2023-11-26 17:07:00 NealNilsa [facility] [address]756 - ID REVSC OPN/PRQ TIB/LINDSAY W/STNT/ATHR/ANGIOP [facility] 2023-11-26 17:07:00 Neal Nilsa [facility] HB ECG ROUTINE & RHYTHM STRIP 2023-11-26 15:15:45 Chrissy Dodson [facility] ASSIGNMENT OF BENEFITS 2023-09-14 21:29:29 Docto r Unassigned, [place] [facility] OSMOLALITY URINE 2023-08-24 22:52:00 Josef Hammonds [facility] SODIUM, URINE RANDOM 2023-08-24 22:52:00 Josef Hammonds [facility] BASIC METABOLIC PANEL (NA, K, CL, CO2, GLUCOSE, BUN, CREATININE, CA) 2023-08-24 20:35:00 Josef Hammonds [facility] CBC WITH DIFF 2023-08-24 17:42:00 Josef Hammonds [facility] OSMOLALITY URINE 2023-08-23 22:48:00 Josef Hammonds [facility] SODIUM, URINE RANDOM 2023-08-23 22:48:00 Josef Hammonds [facility] PHOSPHORUS 2023-08-23 08:55:00 Shey Milian [facility] MAGNESIUM 2023-08-23 08:55:00 Shey Milian [facility] OSMOLALITY, SERUM OR PLASMA 2023-08-23 08:55:00 Josef Hammonds [facility] BASIC METABOLIC PANEL (NA, K, CL, CO2, GLUCOSE, BUN, CREATININE, CA) 2023-08-23 08:55:00 Shey Milian [facility] CBC WITHOUT DIFF 2023-08-23 08:55:00 Shey Milian icer [facility] PHOSPHORUS 2023-08-22 09:22:00 Shey Milian [facility] MAGNESIUM 2023-08-22 09:22:00 Maicol[facility] BAS[facility]OLIC PAN[facility] (NA, K, CL, CO2, GLUCOSE, BUN, CREATININE, CA) 2023-08-22 09:22:00 Shey Milian [facility] CBC WITHOUT DIFF 2023-08-22 09:22:00 Shey Milian [facility] ACTIVATED PARTIAL THRMPLAS HOMER 2023-08-22 06:03:00 Elana Parsons [facility] ACTIVATED PARTIAL THRMPLAS HOMER 2023-08-21 23:09:00 Miguel Sevilla [facility] ACTIVATED PARTIAL THRMPLAS HOMER 2023-08-21 16:05:00 Issa [facility] ACTIVATED PARTIAL THRMPLAS HOMER 2023-08-21 16:05:00 Issa [facility] PHOSPHORUS 2023-08-21 10:03:00 Claudio Paz [facility] MAGNESIUM 2023-08-21 10:03:00 Claudio Paz [facility] BASIC METABOLIC PANEL (NA, K, CL, CO2, GLUCOSE, BUN, CREATININE, CA) 2023-08-21 10:03:00 Pérez [facility] CBC WITHOUT DIFF 2023-08-21 10:03:00 Pérez [facility] PHOSPHORUS 2023-08-21 10:03:00 Claudio Paz [facility] MAGNESIUM 2023-08-21 10:03:00 Claudio Paz [facility] BASIC METABOLIC PANEL (NA, K, CL, CO2, GLUCOSE, BUN, CREATININE, CA) 2023-08-21 10:03:00 Pérez [facility] CBC WITHOUT DIFF 2023-08-21 10:03[facility] (TTE) COMPLETE W/ CONTRAST 2023-08-20 21:48:33 Kendell Andrew [facility] TRANSTHORACIC ECHO (TTE) COMPLETE W/ CONTRAST 2023-08-20 21:48:33 Kendell Andrew [facility] BASIC METABOLIC PANEL (NA, K, CL, CO2, GLUCOSE, BUN, CREATININE, CA) 2023-08-20 21:20:00 Andrew Rdz [facility] CBC WITH DIFF 2023-08-20 21:20:00 Andrew Rdz [facility] BASIC METABOLIC PANEL (NA, K, CL, CO2, GLUCOSE, BUN, CREATININE, CA) 2023-08-20 21:20:00 Andrew Rdz [facility] CBC WITH DIFF 2023-08-20 21:20:00 Andrew Rdz [facility] FL TIME OR (NON-REPORTABLE) 2023-08-20 19:54:00 Nilsa De Jesus [facility] FL TIME OR (NON-REPORTABLE) 2023-08-20 19:54:00 Nilsa De Jesus [facility] POCT ACT HIGH RANGE 2023-08-20 18:14:00 Aime [facility] POCT ACT HIGH RANGE 2023-08-20 17:41:00 Aime [facility] POCT ACT HIGH RANGE 2023-08-20 17:41:00 Ankit Salomon [facility] ARTERIOGRAM 2023-08-20 13:24:00 Neal [facility] FEMORAL-DISTAL BYPASS GRAFT 2023-08-20 13:24:00 Neal [facility] ARTERIOGRAM 2023-08-20 13:24:00 Neal [facility] FEMORAL-DISTAL BYPASS GRAFT 2023-08-20 13:24:00 Neal [facility] ACTIVATED PARTIAL THRMPLAS HOMER 2023-08-20 11:46:00 Miguel Sevilla [facility] ABORH CONFIRMATION (LAB ONLY) 2023-08-20 11:46:00 Ankit Salomon [facility] ACTIVATED PARTIAL THRMPLAS HOMER 2023-08-20 11:46:00 Miguel Sevilla [facility] ABORH CONFIRMATION (LAB ONLY) 2023-08-20 11:46:00 Ankit Salomon [facility] MAGNESIUM 2023-08-20 09:56:00 Sandhya Sevilla [facility] OSMOLALITY, SERUM OR PLASMA 2023-08-20 09:56:00 Josef Hammonds [facility] BASIC METABOLIC PANEL (NA, K, CL, CO2, GLUCOSE, BUN, CREATININE, CA) 2023-08-20 09:56:00 Miguel Sevilla [facility] CBC WITH DIFF 2023-08-20 09:56:00 Sandhya Sevillaooq [facility] HB ABO GROUPING 2023-08-20 09:56:00 Sandhya Sevilla [facility] PHOSPHORUS 2023-08-20 09:56:00 Sandhya Sevilla [facility] MAGNESIUM 2023-08-20 09:56:00 Sandhya Sevillaooq [facility] OSMOLALITY, SERUM OR PLASMA 2023-08-20 09:56:00 Josef Hammonds [facility] BASIC METABOLIC PANEL (NA, K, CL, CO2, GLUCOSE, BUN, CREATININE, CA) 2023-08-20 09:56:00 Miguel Sevilla [facility] CBC WITH DIFF 2023-08-20 09:56:00 Sandhya Sevilla Lukas [facility] HB ABO GROUPING 2023-08-20 09:56:00 Sandhya Sevillaooq [facility] PHOSPHORUS 2023-08-20 09:56:00 Sadnhya Sevilla Lukas [facility] ACTIVATED PARTIAL THRMPLAS HOMER 2023-08-20 05:45:00 Miguel Sevilla Lukas [facility] ACTIVATED PARTIAL THRMPLAS HOMER 2023-08-20 05:45:00 Miguel Sevillaooq [facility] CT ANGIOGRAM ABDOMEN/PELVIS 2023-08-20 05:06:00 Miguel Sevilla [facility] CT ANGIOGRAM LOWER EXTREMITY BILATERAL W CONTRAST 2023-08-20 05:06:00 Miguel Sevilla Lukas [facility] CT ANGIOGRAM ABDOMEN/PELVIS 2023-08-20 05:06:00 Miguel Sevilla Lukas [facility] CT ANGIOGRAM LOWER EXTREMITY BILATERAL W CONTRAST 2023-08-20 05:06:00 Miguel Sevilla [facility] PROTHROMBIN TIME / INR 2023-08-19 21:57:00 Paul Smith [facility] ACTIVATED PARTIAL THRMPLAS HOMER 2023-08-19 21:57:00 Paul Smith [facility] PROTHROMBIN TIME / INR 2023-08-19 21:57:00 Paul Smith [facility] ACTIVATED PARTIAL THRMPLAS HOMER 2023-08-19 21:57:00 Paul Smith [facility] DUPLEX ARTERIAL LEG RIGHT - BY VASCULAR LAB 2023-08-19 21:14:39 Paul [facility] DUPLEX ARTERIAL LEG RIGHT - BY VASCULAR LAB 2023-08-19 21:14:39 Paul Smith [facility] XR FOOT <3 VW RIGHT 2023-08-19 21:04:00 Paul Simth [facility] XR FOOT <3 VW RIGHT 2023-08-19 21:04:00 Paul Smith [facility] COMP. METABOLIC PANEL ([id number]) 2023-08-19 20:22:00 Paul Smith [facility] CBC WITH DIFF 2023-08-19 20:22:00 Paul Smith [facility] LACTIC ACID WHOLE BLOOD 2023-08-19 20:22:00 Arelis Smith [facility] COMP. METABOLIC PANEL ([id number]) 2023-08-19 20:22:00 Paul Smith [facility] CBC WITH DIFF 2023-08-19 20:22:00 Paul Smith [facility] LACTIC ACID WHOLE BLOOD 2023-08-19 20:22:00 Arelis Smith [facility] CONSENT/REFUSAL FOR DIAGNOSIS AND TREATMENT 2023-08-19 18:59:45 Doctor Unassigned, [place] [facility] CONSENT/REFUSAL FOR DIAGNOSIS AND TREATMENT 2023-08-19 18:59:45 Doctor Unassigned, [place] [facility] HOSPITAL ADMISSION 2023-08-19 06:01:00 Doctor Un assigned, [place] [facility] HOSPITAL ADMISSION 2023-08-19 06:01:00 Doctor Un assigned, [place] [facility] [id number] Ultrasound, Soft Tissues Of Head And Neck (eg, Thyroid, Parathyroid, Parotid), Real Time With Image Documentation 2023-01-22 00:00:00 Herman Banks [id number] Endometrial Bx W/wo Endocervix Bx W/o Dilat Spx 2021-12-25 00:00:00 Herman Banks [id number] Endometrial Bx W/wo Endocervix Bx W/o Dilat Spx 2020-09-24 00:00:00 Herman Banks ASSIGNMENT OF BENEFITS 2020-06-08 17:09:49 Docjose j r Unassigned, [place] [facility] PATIENT FINANCIAL POLICY 2019-02-23 13:24:08 Doctor Unassigned, [place] [facility] Encounters Start Date/Time End Date/Time Encounter Type Admission Type Attending [facility] Facility Care Department Encounter ID Source 2024-03-01 13:16:33 2024-03-01 13:16:33 Outpatient SFA [facility] [id number] Herman Escobedo Darren 2024-01-22 12:30:00 2024-01-22 13:04:36 Outpatient R NOEMI ARGUETA [facility] [id number] [facility] 2024-01-22 12:30:00 2024-01-22 13:04:36 Office Visit Noemi Argueta [facility] 1.2.840.114 350.1.13.10 4.2.7.2.686 [id number] [facility] 2024-01-01 11:16:43 2024-01-01 11:16:43 Outpatient [facility] [id number] Herman Banks 2023-12-29 11:20:36 2023-12-29 11:20:36 Outpatient [facility] [id number] Herman Banks 2023-12-29 00:00:00 2023-12-29 00:00:00 Outpatient Visit [facility] [id number] Herman Banks 2023-12-12 09:33:54 2023-12-12 09:33:54 Outpatient SFA [facility] [id number] Herman Banks 2023-12-11 11:45:00 2023-12-11 12:58:10 Outpatient R NILSA DE JESUS JANI [facility] [id number] [facility] 2023-12-11 11:45:00 2023-12-11 12:58:10 Office Visit [facility] 1.2.840.114 350.1.13.10 4.2.7.2.686 [id number] [facility] 2023-11-30 00:00:00 2023-12-10 15:19:13 Telephone [facility] 1.2.840.114 350.1.13.10 4.2.7.2.686 [id number] [facility] 2023-12-09 11:45:00 2023-12-09 11:45:00 Outpatient SFA [facility] [id number] Herman Banks 2023-12-09 00:00:00 2023-12-09 00:00:00 Outpatient Visit [facility] [id number] Herman Banks 2023-11-26 09:43:00 2023-11-26 16:56:00 [facility] [id number] [facility] 2023-11-26 09:43:00 2023-11-26 16:56:00 Hospital Encounter [facility] 1.2.840.114 350.1.13.10 4.2.7.2.686 [id number] [facility] 2023-11-26 11:33:00 2023-11-26 14:52:00 Surgery [facility] 1.2.840.114 350.1.13.10 4.2.7.2.686 [id number] [facility] 2023-11-23 00:00:00 2023-11-23 00:00:00 Outpatient Visit NAHOMI [id number] Herman Banks 2023-11-17 10:00:00 2023-11-17 10:15:00 [employer] Specialist Visit 2, Adc Lab Emely [facility] 1.2.840.114 350.1.13.10 4.2.7.2.686 [id number] [facility] 2023-11-17 10:00:00 2023-11-17 09:56:45 [facility] [id number] [facility] 2023-11-16 16:00:00 2023-11-16 16:45:28 Outpatient R CHARLEY VEGA [facility] [id number] [facility] 2023-11-16 16:00:00 2023-11-16 16:45:28 Office Visit Charley Vega [facility] 1.2.840.114 350.1.13.10 4.2.7.2.686 [id number] [facility] 2023-11-05 00:00:00 2023-11-05 10:52:18 Telephone Noemi Argueta [facility] 1.2.840.114 350.1.13.10 4.2.7.2.686 [id number] [facility] 2023-11-05 10:30:00 2023-11-05 10:30:00 [facility] [id number] [facility] 2023-11-03 14:58:55 2023-11-03 23:59:00 Outpatient R NOEMI ARGUETA [facility] [id number] [facility] 2023-11-03 14:58:55 2023-11-03 23:59:00 Hospital Encounter Noemi Argueta [facility] 1.2.840.114 350.1.13.10 4.2.7.2.686 [id number] [facility] 2023-10-23 15:49:24 2023-10-23 23:59:00 Outpatient Andry MACARIO CHARLEY [facility] [id number] [facility] 2023-10-23 15:49:24 2023-10-23 23:59:00 Hospital Encounter Charley Vega [facility] 1.2.840.114 350.1.13.10 4.2.7.2.686 [id number] [facility] 2023-10-23 10:30:00 2023-10-23 10:59:55 Office Visit Noemi Argueta [facility] 1.2.840.114 350.1.13.10 4.2.7.2.686 [id number] [facility] 2023-10-16 08:00:00 2023-10-16 08:00:00 Outpatient CHARLEY THOMPSON [facility] [id number] [facility] 2023-10-09 15:00:00 2023-10-09 15:00:00 Outpatient Andry JAMACHARLEY DSOUZA [facility] [id number] [facility] 2023-10-02 14:30:00 2023-10-02 14:30:00 [facility] [id number] [facility] 2023-09-29 17:02:28 2023-09-29 17:02:28 Outpatient NAHOMI COMER [id number] Herman Banks 2023-09-28 15:00:00 2023-09-28 15:00:00 Outpatient R CHARLEY VEGA [facility] [id number] [facility] 2023-09-24 00:00:00 2023-09-24 00:00:00 Telephone Nilsa De Jesus [facility] 1.840.114 350.1.13.10 4.2.7.2.686 [id number] [facility] 2023-09-22 10:24:02 2023-09-22 10:24:02 Outpatient SFA [facility] [id number] Herman Banks 2023-09-21 13:30:00 2023-09-21 13:30:00 Outpatient R MANAV DE LA TORRE [facility] [id number] [facility] 2023-09-21 00:00:00 2023-09-21 00:00:00 Telephone Neal [facility] 1.84.114 350.1.13.10 4.2.7.2.686 [id number] [facility] 2023-09-14 16:30:00 2023-09-14 17:08:48 Outpatient R CHARLEY VEGA [facility] [id number] [facility] 2023-09-14 16:30:00 2023-09-14 17:08:48 Office Visit Charley Vega [facility] 1.840.114 350.1.13.10 4.2.7.2.686 [id number] [facility] 2023-09-14 00:00:00 2023-09-14 00:00:00 Orders Only Doctor Unassigned, [place] [facility] 1.840.114 350.1.13.10 4.2.7.2.686 [id number] [facility] 2023-09-01 00:00:00 2023-09-01 00:00:00 Telephone Nilsa De Jesus [facility] 1.2.840.114 350.1.13.10 4.2.7.2.686 [id number] [facility] 2023-08-25 00:00:00 2023-08-25 00:00:00 Transition of Care Elizabeth [facility] 1.2.840.114 350.1.13.10 4.2.7.2.686 [id number] [facility] 2023-08-19 13:07:00 2023-08-24 20:12:00 Inpatient U NILSA DE JESUS JANI [facility] [id number] [facility] 2023-08-19 13:07:00 2023-08-24 20:12:00 Hospital Encounter [facility] 1.2.840.114 350.1.13.10 4.2.7.2.686 [id number] [facility] 2023-08-20 07:06:00 2023-08-20 09:10:00 Surgery [facility] 1.2.840.114 350.1.13.10 4.2.7.2.686 [id number] [facility] 2023-08-13 10:52:11 2023-08-13 10:52:11 Outpatient S[facility] [id number] Herman Escobedo Darren 2023-08-03 11:10:42 2023-08-03 11:10:42 Outpatient SFA [facility] 0205 Herman Banks 2023-07-02 17:02:13 2023-07-02 17:02:13 Outpatient SFA [facility] 0104 Herman Gregg Darren 2023-05-27 15:00:28 2023-05-27 15:00:28 Outpatient SFA [facility] 1129 Herman Gregg Darren 2023-05-26 08:04:23 2023-05-26 08:04:23 Outpatient SFA [facility] 1128 Herman Banks 2023-04-06 13:32:37 2023-04-06 13:32:37 Outpatient [facility] 1009 Herman Banks 2023-03-24 13:47:06 2023-03-24 13:47:06 Outpatient [facility] 0926 Herman Banks 2023-03-24 09:00:00 2023-03-24 09:00:00 Outpatient R ANGELO ALVARADO [facility] [id number] [facility] 2023-03-18 15:16:26 2023-03-18 15:16:26 Outpatient [facility] 0920 Herman Banks 2023-03-17 10:00:00 2023-03-17 10:00:00 Outpatient R YENI AVILES [facility] [id number] [facility] 2023-03-13 00:00:00 2023-03-13 00:00:00 Outpatient R RADIOLOGY [facility] [id number] [facility] 2023-02-27 00:00:00 2023-02-27 00:00:00 Outpatient R RADIOLOGY [facility] [id number] [facility] 2023-02-03 09:50:32 2023-02-03 09:50:32 Outpatient SFA [facility] [id number] Herman Escobedo Darren 2023-01-22 09:04:13 2023-01-22 09:04:13 Outpatient [facility] 0727 Herman Escobedo Darren 2023-01-15 16:27:42 2023-01-15 16:27:42 Outpatient SFA [facility] 0720 Herman F Darren 2022-11-25 09:42:27 2022-11-25 09:42:27 Outpatient SFA [facility] 0530 Herman Escobedo Darren 2022-11-10 00:00:00 2022-11-10 00:00:00 Outpatient R RADIOLOGY [facility] [id number] [facility] 2022-11-04 15:22:35 2022-11-04 15:22:35 Outpatient [facility] [place] [id number] Herman Banks 2022-10-02 08:20:28 2022-10-02 08:20:28 Outpatient [facility] [place] [id number] Herman Banks 2022-09-24 11:05:18 2022-09-24 11:05:18 Outpatient [facility] [id number] Herman Banks 2022-09-17 16:33:30 2022-09-17 16:33:30 Outpatient [facility] [place] [id number] Herman Banks 2022-08-04 16:50:10 2022-08-04 16:50:10 Outpatient [facility] 0206 Herman Escobedo Darren 2021-06-13 15:30:00 2021-06-13 15:30:00 Outpatient R MANAV DE LA TORRE [facility] [id number] [facility] 2020-08-05 00:00:00 2020-08-05 00:00:00 Refill Manav De La Torre [facility] 1.2.840.114 350.1.13.10 4.2.7.2.686 [id number] [facility] 2020-06-13 00:00:00 2020-06-13 00:00:00 Refill Manav De La Torre [facility] 1.2.840.114 350.1.13.10 4.2.7.2.686 [id number] [facility] 2020-06-13 00:00:00 2020-06-13 00:00:00 Telephone Manav De La Torre [facility] 1.2.840.114 350.1.13.10 4.2.7.2.686 [id number] [facility] 2020-06-08 12:12:18 2020-06-08 12:27:18 [employer] Specialist Visit Pob, Adc Lab Main Manav De La Torre [facility] 1.2.840.114 350.1.13.10 4.2.7.2.686 [id number] [facility] 2020-06-08 11:11:00 2020-06-08 11:56:42 Office Visit Britt Opaldanielle KandisDavid [facility] 1.2.840.114 350.1.13.10 4.2.7.2.686 [id number] [facility] 2020-06-08 11:30:00 2020-06-08 11:30:00 Outpatient R MANAV DE LA TORRE [facility] [id number] [facility] 2020-06-08 00:00:00 2020-06-08 00:00:00 Orders Only Doctor Unassigned, [place] [facility] 1..840.114 350.1.13.10 4.2.7.2.686 [id number] [facility] 2020-05-15 11:00:00 2020-05-15 11:00:00 Outpatient R MANAV DE LA TORRE [facility] [id number] [facility] 2020-03-29 09:30:00 2020-03-29 09:30:00 Outpatient R BRITT OPALDANIELLE [facility] [id number] [facility] 2019-09-15 08:53:59 2019-09-15 16:53:37 Telemedici ne Visit Britt Opaldanielle KandisDavid [facility] 1.2.840.114 350.1.13.10 4.2.7.2.686 [id number] [facility] 2019-09-15 09:00:00 2019-09-15 09:00:00 Outpatient R MANAV DE LA TORRE [facility] [id number] [facility] 2019-09-13 11:00:00 2019-09-13 11:00:00 Outpatient R MANAV DE LA TORRE [facility] [id number] [facility] 2019-03-08 00:00:00 2019-03-08 00:00:00 Refill Manav De La Torre [facility] 1.2.840.114 350.1.13.10 4.2.7.2.686 [id number] [facility] 2019-03-04 00:00:00 2019-03-04 00:00:00 Refill Manav De La Torre [facility] 1.2.840.114 350.1.13.10 4.2.7.2.686 [id number] [facility] 2019-02-23 08:26:01 2019-02-23 09:04:19 Office Visit Manav De La Torre [facility] 1.2.840.114 350.1.13.10 4.2.7.2.686 [id number] [facility] 2019-02-23 00:00:00 2019-02-23 00:00:00 Orders Only Doctor Unassigned, [place] [facility] 1.2.840.114 350.1.13.10 4.2.7.2.686 [id number] [facility] Results Test Description Test Time Test Comments Results Result Co mments Source COMPREHENSIVE METABOLIC [id number] 05:00:50* Test Item Value Reference Range Interpretation Comme nts GLUCOSE (test code = 2217) 99 MG/DL 70-99 BUN (test code = 2208) 9 MG/DL 8-23 CREATININE (test code = 2214) 0.71 MG/DL 0.60-1.30 eGFR (2020 CKD-EPI) (test code = 00083) 92 ML/MIN/1.73 >60 CALC BUN/CREAT (test code = 2235) 13 RATIO 6-28 SODIUM (test code = 2231) 129 MEQ/L 133-146 L POTASSIUM (test code = 2228) 4.7 MEQ/L 3.5-5.4 CHLORIDE (test code = 2215) 93 MEQ/L 95-107 L CARBON DIOXIDE (test code = 2206) 24 MEQ/L 19-31 CALCIUM (test code = 2209) 10.3 MG/DL 8.5-10.5 PROTEIN, TOTAL (test code = 2229) 7.4 G/DL 6.1-8.3 ALBUMIN (test code = 2201) 4.2 G/DL 3.5-5.2 CALC GLOBULIN (test code = 2240) 3.2 G/DL 1.9-3.7 CALC A/G RATIO (test code = 2234) 1.3 RATIO 1.0-2.6 BILIRUBIN, TOTAL (test code = 2207) 0.4 MG/DL <=1.2 ALKALINE PHOSPHATASE (test code = 2204) 144 U/L 40-142 H AST (test code = 2218) 24 U/L 9-40 ALT (test code = 2219) 15 U/L 5-40 UNLESS OTHERWISE INDICATED, ALL TESTING PERFORMED AT [facility] [address] [place] [address] STRING STUDIES DIRECTOR: CHARLEY GOMES M.D. CLIA NUMBER [id number] [facility]. [id number] COMPREHENSIVE METABOLIC [id number] 00:00:00* Test Item Value Reference Range Interpretation Comme nts GLUCOSE (test code = 2217) 80 MG/DL BUN (test code = 2208) 4 MG/DL CREATININE (test code = 2214) 0.64 MG/DL eGFR (2020 CKD-EPI) (test co de = 29885) 96 ML/MIN/1.73 CALC BUN/CREAT (test code = 2235) 6 RATIO SODIUM (test code = 2231) 120 MEQ/L POTASSIUM (test code = 2228) 4.6 MEQ/L CHLORIDE (test code = 2215) 86 MEQ/L CARBON DIOXIDE (test code = 2206) 22 MEQ/L CALCIUM (test code = 2209) 9.6 MG/DL PROTEIN, TOTAL (test code = 2229) 6.8 G/DL ALBUMIN (test code = 2201) 3.6 G/DL CALC GLOBULIN (test code = 2240) 3.2 G/DL CALC A/G RATIO (test code = 2234) 1.1 RATIO BILIRUBIN, TOTAL (test code = 2207) 0.6 MG/DL ALKALINE PHOSPHATASE (test code = 2204) 140 U/L AST (test code = 2218) 22 U/L ALT (test code = 2219) 12 U/L Herman BanksLIPID [id number] 00:00:00* Test Item Value Reference Range Interpretation Comme nts CHOLESTEROL (test code = 2210) 135 MG/DL TRIGLYCERIDES (test code = 2232) 115 MG/DL HDL CHOLESTEROL (test code = 2220) 56 MG/DL CALC LDL CHOL (test code = 2237) 59 MG/DL RISK RATIO LDL/HDL (test cod e = 2238) 1.05 RATIO Herman BanksTSH, THIRD [id number] 00:00:00* Test Item Value Reference Range Interpretation Comme nts TSH, THIRD GENERATION (test code = 2821) 8.250 UIU/ML Herman BanksFREE [id number] 00:00:00* Test Item Value Reference Range Interpretation Comme nts FREE T3 (test code = 4273) 2.5 PG/ML [facility]2023-12-14 00:00:00* Test Item Value Reference Range Interpretation Comme nts FREE T4 (THYROXINE) (test co de = 2823) 0.71 NG/DL Herman BanksCBC W/AUTO [id number] 00:00:00* Test Item Value Reference Range Interpretation Comme nts WBC (test code = 1001) 5.7 K/UL RBC (test code = 1002) 4.29 M/UL HEMOGLOBIN (test code = 1003) 12.0 G/DL HEMATOCRIT (test code = 1004) 37.6 % MCV (test code = 1005) 87.6 fL MCH (test code = 1006) 28.0 PG MCHC (test code = 1007) 31.9 G/DL RDW (test code = 1038) 14.3 % NEUTROPHILS (test code = 1008) 49.6 % LYMPHOCYTES (test code = 1010) 36.5 % MONOCYTES (test code = 1011) 10.9 % EOSINOPHILS (test code = 1012) 1.4 % BASOPHILS (test code = 1013) 1.2 % IMMATURE GRANULOCYTES (test code = 1036) 0.4 % NUCLEATED RBCS (test code = 1065) 0.0 /100WBC'S PLATELET COUNT (test code = 1015) 336 K/UL ABSOLUTE NEUTROPHILS (test c ode = 1066) 2.83 K/UL ABSOLUTE LYMPHOCYTES (test c ode = 1067) 2.08 K/UL ABSOLUTE MONOCYTES (test cod e = 1068) 0.62 K/UL ABSOLUTE EOSINOPHILS (test c ode = 1040) 0.08 K/UL ABSOLUTE BASOPHILS (test cod e = 1069) 0.07 K/UL ABS IMMATURE GRANULOCYTES (t est code = 1020) 0.02 K/UL ABS NUCLEATED RBCS (test cod e = 18580) 0.00 K/UL Herman BanksHEMOGLOBIN [id number] 00:00:00* Test Item Value Reference Range Interpretation Comme nts HEMOGLOBIN A1c (test code = 00221) 5.0 % Herman Escobedo [facility] TIME OR (NON-REPORTABLE)2023-11-26 20:32:05These images do not require a Radiology diagnostic report.[facility] TIME OR (NON-REPORTABLE)2023-11-26 20:32:05These images do not require a Radiology diagnostic report.[facility] ACT High [id number] 20:14:16* Test Item Value Reference Range Interpretation Comme [facility] ACTHR (test code = 0020166777) 241 96-152 H Lab Interpretation (test cod e = 88462-0) Abnormal [facility] (NA, K, CL, CO2, GLUCOSE, BUN, CREATININE, CA)2023-08-21 10:54:47* Test Item Value Reference Range Interpretation Comme nts NA (test code = 8604593520) 127 mmol/L 135-145 L K (test code = 8346756992) 4.4 mmol/L 3.5-5.0 CL (test code = 5676787743) 101 mmol/L 98-108 CO2 TOTAL (test code = 2705465550) 23 mmol/L 23-31 AGAP (test code = 8187397203) 3 2-16 BUN (test code = 4791345510) 9 mg/dL 7-23 GLUCOSE (test code = 1471639020) 109 mg/dL 70-110 CREATININE (test code = 2160-0) 0.72 mg/dL 0.50-1.04 CALCIUM (test code = 8612557269) 8.8 mg/dL 8.6-10.6 eGFR (test code = 69066-7) 90.6 mL/min/1.73m2 CKD-EPI eGFR (2020). Assuming creatinine has been stable day-to-day for at least three months, the eGFR indicates Category G1 (>= 90 mL/min/1.73 m2) Lab Interpretation (test code = 45685-4) Abnormal [facility]2024-[facility]-23 10:54:47* Test Item Value Reference Range Interpretation Comme nts MAGNESIUM (test code = 6986555660) 1.9 mg/dL 1.7-2.4 Lab Interpretation (test cod e = 10061-3) Normal [facility]2024-02-23 10:54:47* Test Item Value Reference Range Interpretation Comme nts PHOSPHORUS (test code = 3758418523) 3.5 mg/dL 2.5-5.0 Lab Interpretation (test cod e = 28408-0) Normal [facility] Met[facility] Panel (NA, K, CL, CO2, GLUCOSE, BUN, CREATININE, CA)2023-08-21 10:54:47* Test Item Value Reference Range Interpretation Comme nts NA (test code = 5754238796) 127 mmol/L 135-145 L K (test code = 2682307355) 4.4 mmol/L 3.5-5.0 CL (test code = 9045749327) 101 mmol/L 98-108 CO2 TOTAL (test code = 3700814675) 23 mmol/L 23-31 AGAP (test code = 1221068887) 3 2-16 BUN (test code = 9616811530) 9 mg/dL 7-23 GLUCOSE (test code = 6844490784) 109 mg/dL 70-110 CREATININE (test code = 2160-0) 0.72 mg/dL 0.50-1.04 CALCIUM (test code = 5600552667) 8.8 mg/dL 8.6-10.6 eGFR (test code = 83424-4) 90.6 mL/min/1.73m2 CKD-EPI eGFR (2020). Assuming creatinine has been stable day-to-day for at least three months, the eGFR indicates Category G1 (>= 90 mL/min/1.73 m2) Lab Interpretation (test code = 08696-3) Abnormal [facility]2024-02-23 10:54:47* Test Item Value Reference Range Interpretation Comme nts MAGNESIUM (test code = 2948142281) 1.9 mg/dL 1.7-2.4 Lab Interpretation (test cod e = 20643-2) Normal [facility]2024-02-23 10:54:47* Test Item Value Reference Range Interpretation Comme nts PHOSPHORUS (test code = 6267526061) 3.5 mg/dL 2.5-5.0 Lab Interpretation (test cod e = 73059-5) Normal [facility]ano[facility]bc without [id number] 10:51:44* Test Item Value Reference Range Interpretation [...] 777-3) 325 166-358 MPV (test code = 25645-5) 8.7 fL 9.5-12.9 L RDW-CV (test code = 788-0) 15.0 % 12.0-15.5 RDW-SD (test code = 49036-7) 47.1 fL 39.0-49.9 NRBC x10^3 (test code = 6325255346) See_Comment [Automated Mamaa ge] The system which generated this result transmitted reference range: 10*3/?L. The reference range was not used to interpret this result as normal/abnormal. NRBC/100 WBC (test code = 5455408943) 0.0 0.0-10.0 IPF % (test code = 8712066904) Lab Interpretation (test code = 56895-6) Abnormal [facility]ano[facility] without [id number] 10:51:44* Test Item Value Reference Range Interpretation [...] 777-3) 325 166-358 MPV (test code = 19850-2) 8.7 fL 9.5-12.9 L RDW-CV (test code = 788-0) 15.0 % 12.0-15.5 RDW-SD (test code = 42010-7) 47.1 fL 39.0-49.9 NRBC x10^3 (test code = 5083711288) See_Comment [Automated Mamaa ge] The system which generated this result transmitted reference range: 10*3/?L. The reference range was not used to interpret this result as normal/abnormal. NRBC/100 WBC (test code = 2325000655) 0.0 0.0-10.0 IPF % (test code = 2365536934) Lab Interpretation (test code = 23968-5) Abnormal [facility]2023-08-21 00:40:39* Test Item Value Reference Range Interpretation Comme nts Height (test code = 1719060832) 65 in Weight (test code = 5632525063) 160 lbs Systolic BP (test code = 7023023386) 128 mmHg Diastolic BP (test code = 4267092517) 76 mmHg Heart Rate (test code = 4145144294) 85 bpm BSA (test code = 5609441244) 1.80 m2 LVOT diameter (test code = 7600354027) 2.28 cm LVOT area (test code = 3471430301) 4.10 cm2 Ao root diam (test code = 9542707146) 3.20 cm Aortic root (test code = 3123383378) 3.2 cm Ao root annulus (test code = 0493714143) 3.2 cm LA size (test code = 0186384484) 4.2 cm E wave decelartion time (test code = 3263579935) 0.22 s MV Peak E Earline (test code = 6114357781) 62.4 cm/s MV Peak A Earline (test code = 9949561644) 103.4 cm/s E/A ratio (test code = 9402485855) 0.60 ratio LAV(MOD-sp4) (test code = 8781086086) 55.10 mL LVOT stroke volume (test code = 2615592089) 104.60 cm3 LVOT peak earline (test code = 2384465039) 146.8 cm/s LVOT mn grad (test code = 2583874777) 4.6 mmHg AV LVOT peak gradient (test code = 9004897784) 8.6 mmHg LVOT peak VTI (test code = 7186542542) 25.6 cm LV V1 mean (test code = 4298946959) 101.00 cm/s Tapse (test code = 3123390156) 2.7 cm LA Volume Index (BP) (test code = 9772161715) 34.4 mL/m2 LA volume (BP) (test code = 2320117563) 62.0 mL LAV(MOD-sp2) (test code = 6000873001) 68.90 mL LVIDD (test code = 2360696487) 3.40 cm Left Ventricular End Diastolic Volume by Teichholz Method (test code = 0072977) 46.5 mL IVS (test code = 2122031968) 0.94 cm Interventricular Septum Diastolic Thickness by 2D (test code = 0466972) 0.94 cm LVPWD (test code = 0377381882) 0.90 cm PW (test code = 3295214470) 0.90 cm 0.6-1.1 EF(Teich) (test code = 5006537600) 72.00 % LVIDS (test code = 1568375723) 2.02 cm Left Ventricular End Systolic Volume by Teichholz Method (test code = 9396419) 13.0 mL FS (test code = 0386233921) 40 % EF - 2D (test code = 73919204) 72.00 % Ao peak earline (test code = 9972434613) 162.9 cm/s AV area peak earline (test code = 3777157089) 3.7 cm2 Ao max PG (test code = 4510350694) 10.70 mm[Hg] AV peak gradient (test code = 9157468858) 10.7 mmHg Radiology Study observation (narrative) (test code = 93527-2) JEFFREY (test code = JEFFREY) ?Left?Ventricle: Left [...] mL of Lumason ultrasound enhancing agent used. [facility]2023-08-21 00:40:39* Test Item Value Reference Range Interpretation Comme nts Height (test code = 8899612660) 65 in Weight (test code = 2097019755) 160 lbs Systolic BP (test code = 6630786059) 128 mmHg Diastolic BP (test code = 7425404439) 76 mmHg Heart Rate (test code = 8148022331) 85 bpm BSA (test code = 5360237855) 1.80 m2 LVOT diameter (test code = 2769214402) 2.28 cm LVOT area (test code = 9231043696) 4.10 cm2 Ao root diam (test code = 1464249112) 3.20 cm Aortic root (test code = 5647509446) 3.2 cm Ao root annulus (test code = 6326024948) 3.2 cm LA size (test code = 8318772527) 4.2 cm E wave decelartion time (test code = 9210801484) 0.22 s MV Peak E Earline (test code = 4900136220) 62.4 cm/s MV Peak A Earline (test code = 9534763244) 103.4 cm/s E/A ratio (test code = 4752350849) 0.60 ratio LAV(MOD-sp4) (test code = 9239264739) 55.10 mL LVOT stroke volume (test code = 5357176570) 104.60 cm3 LVOT peak earline (test code = 8898804320) 146.8 cm/s LVOT mn grad (test code = 8618699657) 4.6 mmHg AV LVOT peak gradient (test code = 7660468428) 8.6 mmHg LVOT peak VTI (test code = 0006662261) 25.6 cm LV V1 mean (test code = 7690211159) 101.00 cm/s Tapse (test code = 4333048418) 2.7 cm LA Volume Index (BP) (test code = 8964939131) 34.4 mL/m2 LA volume (BP) (test code = 5426443806) 62.0 mL LAV(MOD-sp2) (test code = 8076638377) 68.90 mL LVIDD (test code = 6399875786) 3.40 cm Left Ventricular End Diastolic Volume by Teichholz Method (test code = 2900099) 46.5 mL IVS (test code = 3157842012) 0.94 cm Interventricular Septum Diastolic Thickness by 2D (test code = 2906573) 0.94 cm LVPWD (test code = 0381277596) 0.90 cm PW (test code = 1741179344) 0.90 cm 0.6-1.1 EF(Teich) (test code = 5525741395) 72.00 % LVIDS (test code = 1606842077) 2.02 cm Left Ventricular End Systolic Volume by Teichholz Method (test code = 2370715) 13.0 mL FS (test code = 5409433254) 40 % EF - 2D (test code = 09722711) 72.00 % Ao peak earline (test code = 4724878678) 162.9 cm/s AV area peak earline (test code = 3745164874) 3.7 cm2 Ao max PG (test code = 8631713071) 10.70 mm[Hg] AV peak gradient (test code = 3976418226) 10.7 mmHg Radiology Study observation (narrative) (test code = 85928-4) JEFFREY (test code = JEFFREY) ?Left?Ventricle: Left [...] mL of Lumason ultrasound enhancing agent used. [facility] TIME OR (NON-REPORTABLE)2023-08-20 20:34:11 These images do not require a Radiology diagnostic report.[facility] TIME OR (NON-REPORTABLE)2023-08-20 20:34:11These images do not require a Radiology diagnostic report.[facility] ACT High [id number] 17:58:58* Test Item Value Reference Range Interpretation Comme nts ACTHR (test code = 5967980743) 260 96-152 H Lab Interpretation (test cod e = 90411-2) Abnormal [facility] ACT High [id number] 17:58:58* Test Item Value Reference Range Interpretation Comme nts ACTHR (test code = 7877942864) 260 96-152 H Lab Interpretation (test cod e = 68374-2) Abnormal [facility] ANGIOGRAM ABDOMEN/[id number] 16:07:48 CT ANGIOGRAM ABDOMEN/PELVIS, CT ANGIOGRAM LOWER [...] Noncalcified plaques with mild to moderateproximal stenosis (54801:96) calcified plaque with mild luminal stenosisdistally. Lower [...] lesions measuring 1 cm and 1.5 cm (58818: 38). 1.1 cm indeterminate right adrenal nodule. Extensive colonic diverticulosis predominantly involving distal colon. Mild bladder wall thickening could be sequela of nondistended lumen. Degenerative disc andfacet arthropathy of spines. The other abdominal and pelvic structures are within normal limits.[facility] LOWER EXTREMITY BILATERAL W [id number] 16:07:48CT ANGIOGRAM ABDOMEN/PELVIS, CT ANGIOGRAM LOWER EXTREMITY [...] Noncalcified plaques with mild to moderateproximal stenosis (22951:96) calcified plaque with mild luminal stenosisdistally. Lower [...] lesions measuring 1 cm and 1.5 cm (67586: 38). 1.1 cm indeterminate right adrenal nodule. Extensive colonic diverticulosis predominantly involving distal colon. Mild bladder wall thickening could be sequela of nondistended lumen. Degenerative disc andfacet arthropathy of spines. The other abdominal and pelvic structures are within normal limits.[facility] 2023-08-20 16:07:48CT ANGIOGRAM ABDOMEN/PELVIS, CT [...] Noncalcified plaques with mild to moderateproximal stenosis (09189:96) calcified plaque with mild luminal stenosisdistally. Lower [...] lesions measuring 1 cm and 1.5 cm (63882: 38). 1.1 cm indeterminate right adrenal nodule. Extensive colonic diverticulosis predominantly involving distal colon. Mild bladder wall thickening could be sequela of nondistended lumen. Degenerative disc andfacet arthropathy of spines. The other abdominal and pelvic structures are within normal limits.[facility] LOWER EXTREMITY BILATERAL W [id number] 16:07:48CT ANGIOGRAM ABDOMEN/PELVIS, CT ANGIOGRAM LOWER EXTREMITY [...] Noncalcified plaques with mild to moderateproximal stenosis (30795:96) calcified plaque with mild luminal stenosisdistally. Lower [...] lesions measuring 1 cm and 1.5 cm (96106: 38). 1.1 cm indeterminate right adrenal nodule. Extensive colonic diverticulosis predominantly involving distal colon. Mild bladder wall thickening could be sequela of nondistended lumen. Degenerative disc andfacet arthropathy of spines. The other abdominal and pelvic structures are within normal limits.[facility] (PT) / INR 2023-08-19 22:31:49* Test Item Value Reference Range Interpretation Comme [facility] PROTIME PATIENT (test code = 5964-2) 24.1 10.1-12.6 H INR (test code = 6301-6) 2.1 Normal INR <1.1; Warfarin Therapeutic range 2.0 to 3.0 or 2.5 to 3.5, depending upon the indications. Lab Interpretation (test code = 39227-9) Abnormal [facility] 22:31:49* Test Item Value Reference Range Interpretation Comme [facility] APTT Patient (test code = 3173-2) 44 26-36 H JEFFREY (test code = JEFFREY) The [facility] patient population mean normal value for aPTT is 30 seconds. Lab Interpretation (test code = 19077-7) [facility]normal [facility] / [id number] 22:31:49 * Test Item Value Reference Range Interpretation Comme [facility] PROTIME PATIENT (test code = 5964-2) 24.1 10.1-12.6 H INR (test code = 6301-6) 2.1 Normal INR <1.1; Warfarin Therapeutic range 2.0 to 3.0 or 2.5 to 3.5, depending upon the indications. Lab Interpretation (test code = 06786-9) [facility]normal [facility]-21 22:31:49* Test Item Value Reference Range Interpretation Comme [facility] APTT Patient (test code = 3173-2) 44 26-36 H JEFFREY (test code = JEFFREY) The [facility] patient population mean normal value for aPTT is 30 seconds. Lab Interpretation (test code = 65612-3) [facility]normal [facility] <3 VW [id number] 21:09:49HISTORY: ?Pain and swelling. FINDINGS: AP and [...] correlate this finding with clinical history andphysical examination.[facility]3 VW RIGHT 2023-08-19 21:09:49HISTORY: ?Pain [...] correlate this finding with clinical history andphysical examination.[facility] METABOLIC PANEL ([id number])2023-08-19 20:59:12* Test Item Value Reference Range Interpretation Comme nts NA (test code = 3671220725) 122 mmol/L 135-145 L K (test code = 6633942375) 4.0 mmol/L 3.5-5.0 CL (test code = 4110875782) 92 mmol/L 98-108 L CO2 TOTAL (test code = 2721797264) 23 mmol/L 23-31 AGAP (test code = 5748182950) 7 2-16 BUN (test code = 5098596605) 4 mg/dL 7-23 L GLUCOSE (test code = 4452525578) 80 mg/dL 70-110 CREATININE (test code = 2160-0) 0.54 mg/dL 0.50-1.04 TOTAL BILI (test code = 0750628683) 0.7 mg/dL 0.1-1.1 CALCIUM (test code = 7835473796) 9.3 mg/dL 8.6-10.6 T PROTEIN (test code = 4357967183) 7.7 g/dL 6.3-8.2 ALBUMIN (test code = 6691325886) 3.7 g/dL 3.5-5.0 ALK PHOS (test code = 3344398661) 101 U/L 34-122 ALTv (test code = 1742-6) 13 U/L 5-35 AST(SGOT) (test code = 9709241911) 29 U/L 13-40 eGFR (test code = 79754-9) 99.8 mL/min/1.73m2 CKD-EPI eGFR (2020). Assuming creatinine has been stable day-to-day for at least three months, the eGFR indicates Category G1 (>= 90 mL/min/1.73 m2) Lab Interpretation (test code = 93905-7) [facility] (17690)2023-08-19 20:59:12* Test Item Value Reference Range Interpretation Comme nts NA (test code = 0166309670) 122 mmol/L 135-145 L K (test code = 9517481343) 4.0 mmol/L 3.5-5.0 CL (test code = 9385637671) 92 mmol/L 98-108 L CO2 TOTAL (test code = 3039212635) 23 mmol/L 23-31 AGAP (test code = 4131434169) 7 2-16 BUN (test code = 9294097075) 4 mg/dL 7-23 L GLUCOSE (test code = 8790832366) 80 mg/dL 70-110 CREATININE (test code = 2160-0) 0.54 mg/dL 0.50-1.04 TOTAL BILI (test code = 1325837790) 0.7 mg/dL 0.1-1.1 CALCIUM (test code = 5138615422) 9.3 mg/dL 8.6-10.6 T PROTEIN (test code = 5099435746) 7.7 g/dL 6.3-8.2 ALBUMIN (test code = 5650924026) 3.7 g/dL 3.5-5.0 ALK PHOS (test code = 9850562760) 101 U/L 34-122 ALTv (test code = 1742-6) 13 U/L 5-35 AST(SGOT) (test code = 7402963754) 29 U/L 13-40 eGFR (test code = 80532-7) 99.8 mL/min/1.73m2 CKD-EPI eGFR (2020). Assuming creatinine has been stable day-to-day for at least three months, the eGFR indicates Category G1 (>= 90 mL/min/1.73 m2) Lab Interpretation (test code = 31460-5) Abnormal [facility] WITH [id number] 20:54:52* Test Item Value Reference Range Interpretation [...] 34.7 g/dL 31.6-35.1 RDW-SD (test code = 63371-1) 43.8 fL 39.0-49.9 RDW-CV (test code = 788-0) 14.5 % 12.0-15.5 PLT (test code = 777-3) 423 166-358 H MPV (test code = 68930-9) 8.7 fL 9.5-12.9 L NRBC/100 WBC (test code = 6329304926) 0.0 0.0-10.0 NRBC x10^3 (test code = 5943367698) See_Comment [Automated messa ge] The system which generated this result transmitted reference range: 10*3/?L. The reference range was not used to interpret this result as normal/abnormal. GRAN MAT (NEUT) % (test code = 770-8) 55.5 % IMM GRAN % (test code = 9736632268) 0.40 % LYMPH % (test code = 736-9) 28.0 % MONO % (test code = 5905-5) 12.0 % EOS % (test code = 713-8) 3.2 % BASO % (test code = 706-2) 0.9 % GRAN MAT x10^3(ANC) (test code = 4083813729) 3.09 10*3/uL 1.88-7.09 IMM GRAN x10^3 (test code = 9551440375) 0.00-0.06 LYMPH x10^3 (test code = 731-0) 1.56 10*3/uL 1.32-3.29 MONO x10^3 (test code = 742-7) 0.67 10*3/uL 0.33-0.92 EOS x10^3 (test code = 711-2) 0.18 10*3/uL 0.03-0.39 BASO x10^3 (test code = 704-7) 0.05 10*3/uL 0.01-0.07 Lab Interpretation (test code = 83608-2) Abnormal [facility] WITH [id number] 20:54:52* Test Item Value Reference Range Interpretation [...] 34.7 g/dL 31.6-35.1 RDW-SD (test code = 92094-2) 43.8 fL 39.0-49.9 RDW-CV (test code = 788-0) 14.5 % 12.0-15.5 PLT (test code = 777-3) 423 166-358 H MPV (test code = 21751-9) 8.7 fL 9.5-12.9 L NRBC/100 WBC (test code = 8289528266) 0.0 0.0-10.0 NRBC x10^3 (test code = 5822341986) See_Comment [Automated messa ge] The system which generated this result transmitted reference range: 10*3/?L. The reference range was not used to interpret this result as normal/abnormal. GRAN MAT (NEUT) % (test code = 770-8) 55.5 % IMM GRAN % (test code = 3358704540) 0.40 % LYMPH % (test code = 736-9) 28.0 % MONO % (test code = 5905-5) 12.0 % EOS % (test code = 713-8) 3.2 % BASO % (test code = 706-2) 0.9 % GRAN MAT x10^3(ANC) (test code = 0608359075) 3.09 10*3/uL 1.88-7.09 IMM GRAN x10^3 (test code = 0595084309) 0.00-0.06 LYMPH x10^3 (test code = 731-0) 1.56 10*3/uL 1.32-3.29 MONO x10^3 (test code = 742-7) 0.67 10*3/uL 0.33-0.92 EOS x10^3 (test code = 711-2) 0.18 10*3/uL 0.03-0.39 BASO x10^3 (test code = 704-7) 0.05 10*3/uL 0.01-0.07 Lab Interpretation (test code = 39992-4) [facility]normal [facility] [id number] 20:30:05* Test Item Value Reference Range Interpretation Comme nts LACTIC ACID (test code = 4759582713) 1.82 mmol/L 0.50-2.20 Lab Interpretation (test cod e = 45419-4) Normal [facility] Whole [id number] 20:30:05* Test Item Value Reference Range Interpretation Comme nts LACTIC ACID (test code = 9176925274) 1.82 mmol/L 0.50-2.20 Lab Interpretation (test cod e = 27842-1) Normal [facility] [id number] 04:54:35* Test Item Value Reference Range Interpretation Comme nts GLUCOSE (test code = 2217) 83 MG/DL 70-99 BUN (test code = 2208) 7 MG/DL 8-23 L CREATININE (test code = 2214) 0.66 MG/DL 0.60-1.30 eGFR (2020 CKD-EPI) (test code = 72193) 95 ML/MIN/1.73 >60 CALC BUN/CREAT (test code [...] TESTING PERFORMED AT [facility] [address] [place] [address] STRING STUDIES DIRECTOR: CHARLEY GOMES M.D. CLIA NUMBER [id number] [place]. [id number] COMPREHENSIVE METABOLIC [id number] 00:00:00* Test Item Value Reference Range Interpretation Comme nts GLUCOSE (test code = 2217) 83 MG/DL BUN (test code = 2208) 7 MG/DL CREATININE (test code = 2214) 0.66 MG/DL eGFR (2020 CKD-EPI) (test co de = 75241) 95 ML/MIN/1.73 CALC BUN/CREAT (test code = [...] = 2219) 13 U/L Herman BanksCOMPREHENSIVE METABOLIC [id number] 00:00:00* Test Item Value Reference Range Interpretation Comme nts GLUCOSE (test code = 2217) 83 MG/DL BUN (test code = 2208) 7 MG/DL CREATININE (test code = 2214) 0.66 MG/DL eGFR (2020 CKD-EPI) (test co de = 28236) 95 ML/MIN/1.73 CALC BUN/CREAT (test code = [...] (test code = 2219) 13 U/L [facility]HANN[facility]ITALPRE[facility] [id number] 00:00:00* Test Item Value Reference Range Interpretation Comme nts GLUCOSE (test code = 2217) 83 MG/DL BUN (test code = 2208) 7 MG/DL CREATININE (test code = 2214) 0.66 MG/DL eGFR (2020 CKD-EPI) (test co de = 45787) 95 ML/MIN/1.73 CALC BUN/CREAT (test code = [...] (test code = 2219) 13 U/L Herman Gregg Figueroa, THIRD [id number] 06:16:17* Test Item Value Reference Range Interpretation Comme nts TSH, THIRD GENERATION (test code = 2821) 2.350 UIU/ML 0.400-4.100 UNLESS OTHERWISE INDICATED, ALL TESTING PERFORMED AT [facility] [address] [place] [address], [place] [address] STRING STUDIES DIRECTOR: CHARLEY GOMES M.D. CLIA NUMBER [id number] [facility] [place]. [id number] TSH, THIRD [id number] 00:00:00* Test Item Value Reference Range Interpretation Comme nts TSH, THIRD GENERATION (test code = 2821) 2.350 UIU/ML Herman Marti, THIRD [id number] 00:00:00* Test Item Value Reference Range Interpretation Comme nts TSH, THIRD GENERATION (test code = 2821) 2.350 UIU/ML SATHISH Boykin [id number] 00:00:00* Test Item Value Reference Range Interpretation Comme nts TSH, THIRD GENERATION (test code = 2821) 2.350 UIU/ML Herman Marti THIRD [id number] 00:00:00* Test Item Value Reference Range Interpretation Comme nts TSH, THIRD GENERATION (test code = 2821) 2.460 UIU/ML SATHISH Boykin [id number] 00:00:00* Test Item Value Reference Range Interpretation Comme nts TSH, THIRD GENERATION (test code = 2821) 2.460 UIU/ML Herman Marti THIRD [id number] 00:00:00* Test Item Value Reference Range Interpretation Comme nts TSH, THIRD GENERATION (test code = 2821) 2.460 UIU/ML SATHISH Boykin [id number] 04:26:15* Test Item Value Reference Range Interpretation Comme nts TSH, THIRD GENERATION (test code = 2821) 0.721 UIU/ML 0.400-4.100 FREE T4 (THYROXINE)2023-02-04 04:26:15* Test Item Value Reference Range Interpretation Comme nts FREE T4 (THYROXINE) (test code = 2823) 1.11 NG/DL 0.80-1.90 UNLESS OTHERWISE INDICATED, ALL TESTING PERFORMED AT [facility] [address] [place] [address] STRING STUDIES DIRECTOR: CHARLEY GOMES M.D. CLIA NUMBER [id number] [facility]. [id number] TSH, THIRD [id number] 00:00:00* Test Item Value Reference Range Interpretation Comme nts TSH, THIRD GENERATION (test code = 2821) 0.721 UIU/ML Herman Juarez T4 (THYROXINE)2023-02-04 00:00:00* Test Item Value Reference Range Interpretation Comme nts FREE T4 (THYROXINE) (test co de = 2823) 1.11 NG/DL SATHISH Boykin [id number] 00:00:00* Test Item Value Reference Range Interpretation Comme nts TSH, THIRD GENERATION (test code = 2821) 0.721 UIU/ML Herman BanksFREE T4 (THYROXINE)2023-02-04 00:00:00* Test Item Value Reference Range Interpretation Comme nts FREE T4 (THYROXINE) (test co de = 2823) 1.11 NG/DL Herman BanksTSH, THIRD [id number] 00:00:00* Test Item Value Reference Range Interpretation Comme nts TSH, THIRD GENERATION (test code = 2821) 0.721 UIU/ML Herman BanksFREE T4 (THYROXINE)2023-02-04 00:00:00* Test Item Value Reference Range Interpretation Comme nts FREE T4 (THYROXINE) (test co de = 2823) 1.11 NG/DL Herman Escobedo AustinTHYROXINE, FREE, [id number] 09:22:02* Test Item Value Reference Range Interpretation Comme nts THYROXINE, FREE, DIAL (test code = 58930) 2.4 ng/dL 1.1-2.4 FREE T4 BY EQUIL DIALYSIS-TMS: REFERENCE INTERVALS 1ST TRIMESTER ...... 0.7 - 2.0 ng/dL 2ND TRIMESTER ...... 0.7 - 2.1 ng/dL 3RD TRIMESTER ...... 0.5 - 1.6 ng/dLINTERPRETIVE INFORMATION: FT4 ED-TMSThis test was developed and its performance characteristics determined by [employer]. It has not been cleared or approved by the [place] Food and Drug Administration. This test was performed in a CLIA certified laboratory and is intended for clinical purposes. TESTING PERFORMED AT [facility], [address] [address] [place]. [id number] CLIA NO. [id number] THYROXINE, FREE, [id number] 00:00:00* Test Item Value Reference Range Interpretation Comme nts THYROXINE, FREE, DIAL (test code = 51158) 2.4 ng/dL Herman F AustinTHYROXINE, FREE, [id number] 00:00:00* Test Item Value Reference Range Interpretation Comme nts THYROXINE, FREE, DIAL (test code = 54735) 2.4 ng/dL Herman F AustinTHYROXINE, FREE, [id number] 00:00:00* Test Item Value Reference Range Interpretation Comme nts THYROXINE, FREE, DIAL (test code = 15407) 2.4 ng/dL Herman Escobedo AustinTHYROTROPIN RECEPTOR [id number] 12:59:32* Test Item Value Reference Range Interpretation Comme nts TRAB (test code = 77202) 1.36 IU/L <1.75 TESTING PERFORME D AT [facility] [address] [place] [address], [address] [address] CLIA NO: [id number] THYROTROPIN RECEPTOR [id number] 00:00:00* Test Item Value Reference Range Interpretation Comme nts TRAB (test code = 20151) 1.36 IU/L Herman Escobedo AustinTHYROTROPIN RECEPTOR [id number] 00:00:00* Test Item Value Reference Range Interpretation Comme nts TRAB (test code = 23312) 1.36 IU/L Herman Escobedo AustinTHYROTROPIN RECEPTOR [id number] 00:00:00* Test Item Value Reference Range Interpretation Comme nts TRAB (test code = 73806) 1.36 IU/L Herman Escobedo AustinTHYROID PEROXIDASE [id number] 03:59:09* Test Item Value Reference Range Interpretation Comme nts THYROID PEROXIDASE AB (test code = 22659) 11 IU/ML See_Comment EFFECTIVE 2022, NEW REFERENCE RANGE CHANGE ASSOCIATEDWITH CHANGE IN METHODOLOGY.NEW METHODOLOGY IS DAGMAR ELECTROCHEMILUMINESCENCE IMMUNOASSAY(ECLIA). [Automated message] The system which generated this result transmitted reference range: <=34. The reference range was not used to interpret this result as normal/abnormal. TSH REFLEX TO FREE [id number] 03:58:41* Test Item Value Reference Range Interpretation Comme nts TSH REFLEX TO FREE T4 (test code = 2834) 0.377 UIU/ML 0.400-4.100 L FREE T4 (THYROXINE)2022-11-05 03:58:41* Test Item Value Reference Range Interpretation Comme nts FREE T4 (THYROXINE) (test code = 2823) 1.23 NG/DL 0.80-1.90 UNLESS OTHERWISE INDICATED, ALL TESTING PERFORMED AT [facility] [address] [place] [address] STRING STUDIES DIRECTOR: CHARLEY GOMES M.D. CLIA NUMBER [id number] [place]. [id number] FREE 03:58:41* Test Item Value Reference Range Interpretation Comme nts FREE T3 (test code = 4273) 3.2 PG/ML 2.2-4.2 TSH REFLEX TO FREE [id number] 00:00:00* Test Item Value Reference Range Interpretation Comme nts TSH REFLEX TO FREE T4 (test code = 2834) 0.377 UIU/ML Herman Gregg AustinTHYROID PEROXIDASE [id number] 00:00:00* Test Item Value Reference Range Interpretation Comme nts THYROID PEROXIDASE AB (test code = 61030) 11 IU/ML Herman F AustinFREE T4 (THYROXINE) [REFLEX]2022-11-05 00:00:00* Test Item Value Reference Range Interpretation Comme nts FREE T4 (THYROXINE) (test co de = 2823) 1.23 NG/DL Herman Escobedo AustinFREE 00:00:00* Test Item Value Reference Range Interpretation Comme nts FREE T3 (test code = 4273) 3.2 PG/ML Herman F AustinTSH REFLEX TO FREE [id number] 00:00:00* Test Item Value Reference Range Interpretation Comme nts TSH REFLEX TO FREE T4 (test code = 2834) 0.377 UIU/ML Herman F AustinTHYROID PEROXIDASE [id number] 00:00:00* Test Item Value Reference Range Interpretation Comme nts THYROID PEROXIDASE AB (test code = 22970) 11 IU/ML Herman F AustinFREE T4 (THYROXINE) [REFLEX]2022-11-05 00:00:00* Test Item Value Reference Range Interpretation Comme nts FREE T4 (THYROXINE) (test co de = 2823) 1.23 NG/DL Herman F AustinFREE 00:00:00* Test Item Value Reference Range Interpretation Comme nts FREE T3 (test code = 4273) 3.2 PG/ML Herman F AustinTSH REFLEX TO FREE [id number] 00:00:00* Test Item Value Reference Range Interpretation Comme nts TSH REFLEX TO FREE T4 (test code = 2834) 0.377 UIU/ML Herman F AustinTHYROID PEROXIDASE [id number] 00:00:00* Test Item Value Reference Range Interpretation Comme sonia THYROID PEROXIDASE AB (test code = 20133) 11 IU/ML Herman Juarez T4 (THYROXINE) [REFLEX]2022-11-05 00:00:00* Test Item Value Reference Range Interpretation Comme sonia FREE T4 (THYROXINE) (test co de = 2823) 1.23 NG/DL Herman Juarez [id number] 00:00:00* Test Item Value Reference Range Interpretation Comme sonia FREE T3 (test code = 4273) 3.2 PG/ML Herman BanksOCCULT BLD,FECAL,IMMUNOASSAY [facility] [id number] 11:10:46* Test Item Value Reference Range Interpretation Comme nts OCCULT BLD, FECAL (test code = 68414) NEGATIVE NEGATIVE [facility] has important pathology staff changes effective 08/27/2022. New pathology staff will provide uninterrupted, excellent patient care and clinical consultation. See URL: [email or web address]. UNLESS OTHERWISE INDICATED, ALL TESTING PERFORMED AT [facility] [address] [place] [address] STRING STUDIES DIRECTOR: CHARLEY GOMES M.D. CLIA NUMBER [id number] [facility] [place]. [id number] OCCULT BLD,FECAL,IMMUNOASSAY [id number] 00:00:00* Test Item Value Reference Range Interpretation Comme nts OCCULT BLD, FECAL (test code = 84812) NEGATIVE Herman Escobedo AustinOCCULT BLD,FECAL,IMMUNOASSAY HAWTHORN [id number] 00:00:00* Test Item Value Reference Range Interpretation Comme nts OCCULT BLD, FECAL (test code = 75809) NEGATIVE Herman Escobedo AustinOCCULT BLD,FECAL,IMMUNOASSAY [id number] 00:00:00* Test Item Value Reference Range Interpretation Comme nts OCCULT BLD, FECAL (test code = 15017) NEGATIVE Herman BanksHEPATITIS PANEL, [id number] 04:58:56* Test Item Value Reference Range Interpretation Comme nts HEPATITIS A IgM (test code = 46267) NON-REACTIVE NON-REACTIVE HEPATITIS B CORE IgM (test code = 4644) NON-REACTIVE NON-REACTIVE HEPATITIS B SURF AG (test code = 2739) NON-REACTIVE NON-REACTIVE HEPATITIS C ANTIBODY (test code = 4675) NON-REACTIVE NON-REACTIVE INTERPRETATION HEPATITIS A: (test code = 2552) (NOTE) Hepatitis A serology shows no evidence of acute hepatitis A. INTERPRETATION HEPATITIS B: (test code = 61603) (NOTE) Hepatitis B serology shows no evidence of acute hepatitis B andno indication of exposure to hepatitis B virus in the previous sherita eight months. INTERPRETATION HEPATITIS C: (test code = 49344) (NOTE) Hepatitis C serology shows no evidence of exposure to hepatitisC virus at this time. It can take up to 12 months after exposure tothe hepatitis C virus for antibodies to become detectable in the blood in certain patients. TSH, THIRD [id number] 04:26:31* Test Item Value Reference Range Interpretation Comme nts TSH, THIRD GENERATION (test code = 2821) 0.378 UIU/ML 0.400-4.100 L [facility] has impo rtant pathology staff changes effective 08/27/2022. New pathology staff will provide uninterrupted, excellent patient care and clinical consultation. See URL: [email or web address]. UNLESS OTHERWISE INDICATED, ALL TESTING PERFORMED AT [facility] [address] [place] [address] STRING STUDIES DIRECTOR: CHARLEY GOMES M.D. IA NUMBER [id number] [facility] [place]. [id number] COMPREHENSIVE METABOLIC [id number] 04:23:07* Test Item Value Reference Range Interpretation Comme nts GLUCOSE (test code = 2217) 104 MG/DL 70-99 H BUN (test code = 2208) 8 MG/DL 8-23 CREATININE (test code = 2214) 0.65 MG/DL 0.60-1.30 eGFR (2020 CKD-EPI) (test code = 31732) 96 ML/MIN/1.73 >60 CALC BUN/CREAT (test code [...] code = 2219) 13 U/L 5-40 LIPID [id number] 04:23:07* Test Item Value Reference Range Interpretation Comme nts CHOLESTEROL (test code = 0) 205 MG/DL <200 H TRIGLYCERIDES (test code = 2) 70 MG/DL <150 HDL CHOLESTEROL (test code = 0) 59 MG/DL >39 CALC LDL CHOL (test code = 2236) 130 MG/DL <100 H NOTE: CALCULATED LDL IS BASED ON GREGORIA-LEARY METHOD WHICHINCLUDES ADJUSTABLE TRIGLYCERIDE:VLDL CHOLESTEROL RATIO.THIS FACTOR VARIES BY MEASURED TRIGLYCERIDE AND NON-HDLCHOLESTEROL CONCENTRATIONS WITH INCREASED CALCULATED LDL SEENIN HIGHER TRIGLYCERIDE OR LOWER NON-HDL SPECIMENS. FOR MOREINFORMATION, SEE CLIENT ANNOUNCEMENT AT [email or web address] RATIO LDL/HDL (test code = 223) 2.20 RATIO <3.22 HEMOGLOBIN [id number] 03:29:45* Test Item Value Reference Range Interpretation Comme nts HEMOGLOBIN A1c (test code = 96556) 5.1 % 4.2-5.6 CBC W/AUTO DIFF WITH [id number] 02:25:42* Test Item Value Reference Range Interpretation [...] = 1065) 0.0 /100 WBC'S See_Comment [Automated Mamaa ge] The system which generated this result [...] 0.00-0.10 ABS NUCLEATED RBCS (test code = 50960) 0.00 K/UL 0.00-0.11 CBC W/AUTO [id number] 00:00:00* Test Item Value Reference Range Interpretation [...] ABS NUCLEATED RBCS (test cod e = 36502) 0.00 K/UL Herman F DarrenCOMPREHENSIVE METABOLIC [id number] 00:00:00* Test Item Value Reference Range Interpretation Comme nts GLUCOSE (test code = 2217) 104 MG/DL BUN (test code = 2208) 8 MG/DL CREATININE (test code = 2214) 0.65 MG/DL eGFR (2020 CKD-EPI) (test co de = 48378) 96 ML/MIN/1.73 CALC BUN/CREAT (test code = [...] code = 2219) 13 U/L Herman BanksLIPID [id number] 00:00:00* Test Item Value Reference Range Interpretation Comme nts CHOLESTEROL (test code = 2210) 205 MG/DL TRIGLYCERIDES (test code = 2232) 70 MG/DL HDL CHOLESTEROL (test code = 2220) 59 MG/DL CALC LDL CHOL (test code = 2237) 130 MG/DL RISK RATIO LDL/HDL (test cod e = 2238) 2.20 RATIO Herman BanksACUTE HEPATITIS [id number] 00:00:00* Test Item Value Reference Range Interpretation Comme nts HEPATITIS A IgM (test code = 29193) NON-REACTIVE HEPATITIS B CORE IgM (test c ode = 4644) NON-REACTIVE HEPATITIS B SURF AG (test co de = 2739) NON-REACTIVE HEPATITIS C ANTIBODY (test c ode = 4675) NON-REACTIVE INTERPRETATION HEPATITIS A: (test code = 2552) (NOTE) INTERPRETATION HEPATITIS B: (test code = 15296) (NOTE) INTERPRETATION HEPATITIS C: (test code = 06411) (NOTE) Herman BanksTSH, THIRD [id number] 00:00:00* Test Item Value Reference Range Interpretation Comme nts TSH, THIRD GENERATION (test code = 2821) 0.378 UIU/ML Herman BanksHEMOGLOBIN [id number] 00:00:00* Test Item Value Reference Range Interpretation Comme sonia HEMOGLOBIN A1c (test code = 07111) 5.1 % Herman BanksCBC W/AUTO [id number] 00:00:00* Test Item Value Reference Range Interpretation [...] ABS NUCLEATED RBCS (test cod e = 23476) 0.00 K/UL Herman BanksCOMPREHENSIVE METABOLIC [id number] 00:00:00* Test Item Value Reference Range Interpretation Comme nts GLUCOSE (test code = 2217) 104 MG/DL BUN (test code = 2208) 8 MG/DL CREATININE (test code = 2214) 0.65 MG/DL eGFR (2020 CKD-EPI) (test co de = 38938) 96 ML/MIN/1.73 CALC BUN/CREAT (test code = [...] code = 2219) 13 U/L Herman BanksLIPID [id number] 00:00:00* Test Item Value Reference Range Interpretation Comme nts CHOLESTEROL (test code = 2210) 205 MG/DL TRIGLYCERIDES (test code = 2232) 70 MG/DL HDL CHOLESTEROL (test code = 2220) 59 MG/DL CALC LDL CHOL (test code = 2237) 130 MG/DL RISK RATIO LDL/HDL (test cod e = 2238) 2.20 RATIO Herman BanksACUTE HEPATITIS [id number] 00:00:00* Test Item Value Reference Range Interpretation Comme nts HEPATITIS A IgM (test code = 70924) NON-REACTIVE HEPATITIS B CORE IgM (test c ode = 4644) NON-REACTIVE HEPATITIS B SURF AG (test co de = 2739) NON-REACTIVE HEPATITIS C ANTIBODY (test c ode = 4675) NON-REACTIVE INTERPRETATION HEPATITIS A: (test code = 2552) (NOTE) INTERPRETATION HEPATITIS B: (test code = 09085) (NOTE) INTERPRETATION HEPATITIS C: (test code = 85164) (NOTE) Herman BanksTSH, THIRD [id number] 00:00:00* Test Item Value Reference Range Interpretation Comme nts TSH, THIRD GENERATION (test code = 2821) 0.378 UIU/ML Herman BanksHEMOGLOBIN [id number] 00:00:00* Test Item Value Reference Range Interpretation Comme nts HEMOGLOBIN A1c (test code = 70121) 5.1 % Herman BanksCBC W/AUTO [id number] 00:00:00* Test Item Value Reference Range Interpretation [...] ABS NUCLEATED RBCS (test cod e = 08052) 0.00 K/UL Herman Gregg DarrenCOMPREHENSIVE METABOLIC [id number] 00:00:00* Test Item Value Reference Range Interpretation Comme nts GLUCOSE (test code = 2217) 104 MG/DL BUN (test code = 2208) 8 MG/DL CREATININE (test code = 2214) 0.65 MG/DL eGFR (2020 CKD-EPI) (test co de = 54830) 96 ML/MIN/1.73 CALC BUN/CREAT (test code = [...] (test code = 2219) 13 U/L Herman Escobedo DarrenLIPID [id number] 00:00:00* Test Item Value Reference Range Interpretation Comme nts CHOLESTEROL (test code = 2210) 205 MG/DL TRIGLYCERIDES (test code = 2232) 70 MG/DL HDL CHOLESTEROL (test code = 2220) 59 MG/DL CALC LDL CHOL (test code = 2237) 130 MG/DL RISK RATIO LDL/HDL (test cod e = 2238) 2.20 RATIO Herman Ortiz HEPATITIS [id number] 00:00:00* Test Item Value Reference Range Interpretation Comme nts HEPATITIS A IgM (test code = 65101) NON-REACTIVE HEPATITIS B CORE IgM (test c ode = 4644) NON-REACTIVE HEPATITIS B SURF AG (test co de = 2739) NON-REACTIVE HEPATITIS C ANTIBODY (test c ode = 4675) NON-REACTIVE INTERPRETATION HEPATITIS A: (test code = 2552) (NOTE) INTERPRETATION HEPATITIS B: (test code = 78783) (NOTE) INTERPRETATION HEPATITIS C: (test code = 50715) (NOTE) Herman BanksTSH, THIRD [id number] 00:00:00* Test Item Value Reference Range Interpretation Comme nts TSH, THIRD GENERATION (test code = 2821) 0.378 UIU/ML Herman BanksHEMOGLOBIN [id number] 00:00:00* Test Item Value Reference Range Interpretation Comme nts HEMOGLOBIN A1c (test code = 16665) 5.1 % Herman BanksSURGICAL PATHOLOGY [id number] 16:35:30* Test Item Value Reference Range Interpretation [...] Rice-brownNUMBER OF TISSUE PIECES: MultipleSUBMITTED IN CASSETTE(S): [id number]: FormalinCOMMENTS:Irregularly shaped tissue fragments with mucus and clotted blood. Filtered and entirely submitted. PATHOLOGIST: (test code = 8250) (NOTE) Laila Carter Specimens processed at [facility], [address] [place] [address], , CLIA: [id number] interpreted at [facility], [address] [address], , CLIA: [id number] CPT: (test code = 8400) (NOTE) [id number] UNLESS OTH ERWISE INDICATED, ALL TESTING PERFORMED [facility] [employer] [address] [place] [address] STRING STUDIES DIRECTOR: ONELIA MARC M.D. CLIA NUMBER [id number] [facility] [place]. [id number] SURGICAL PATHOLOGY [id number] 00:00:00* Test Item Value Reference Range Interpretation Comme nts DIAGNOSIS: (test code = 8200) (NOTE) MICROSCOPIC DESCRIPTION: (te st code = 8210) (NOTE) CLINICAL DATA: (test code = 8401) (NOTE) GROSS DESCRIPTION: (test code = 8220) (NOTE) PATHOLOGIST: (test code = 8250) (NOTE) CPT: (test code = 8400) (NOTE) Herman Escobedo LynnSURGICAL PATHOLOGY [id number] 00:00:00* Test Item Value Reference Range Interpretation Comme nts DIAGNOSIS: (test code = 8200) (NOTE) MICROSCOPIC DESCRIPTION: (te st code = 8210) (NOTE) CLINICAL DATA: (test code = 8401) (NOTE) GROSS DESCRIPTION: (test code = 8220) (NOTE) PATHOLOGIST: (test code = 8250) (NOTE) CPT: (test code = 8400) (NOTE) Herman Escobedo AustinSURGICAL PATHOLOGY [id number] 00:00:00* Test Item Value Reference Range Interpretation Comme nts DIAGNOSIS: (test code = 8200) (NOTE) MICROSCOPIC DESCRIPTION: (te st code = 8210) (NOTE) CLINICAL DATA: (test code = 8401) (NOTE) GROSS DESCRIPTION: (test code = 8220) (NOTE) PATHOLOGIST: (test code = 8250) (NOTE) CPT: (test code = 8400) (NOTE) [facility] [id number] 13:55:27* Test Item Value Reference Range Interpretation [...] Rice-pinkNUMBER OF TISSUE PIECES: MultipleSUBMITTED IN CASSETTE(S): [id number]: FormalinCOMMENTS:Irregular ly shaped tissue fragments and clotted blood. Filteredand entirely submitted. PATHOLOGIST: (test code = 8250) (NOTE) Ryan Condon M.D. Specimens processed at [facility], [address] [place] [address], , CLIA: [id number] interpreted at [facility], [address] [place] [address], ,CLIA: [id number] CPT: (test code = 8400) (NOTE) [id number] UNLESS OTH ERWISE INDICATED, ALL TESTING PERFORMED [facility] [employer], [place] [address] STRING STUDIES DIRECTOR: ONELIA MARC M.D. CLIA NUMBER [id number] [facility] [place]. [id number] SURGICAL PATHOLOGY [id number] 00:00:00* Test Item Value Reference Range Interpretation Comme nts DIAGNOSIS: (test code = 8200) (NOTE) MICROSCOPIC DESCRIPTION: (te st code = 8210) (NOTE) CLINICAL DATA: (test code = 8401) (NOTE) GROSS DESCRIPTION: (test code = 8220) (NOTE) PATHOLOGIST: (test code = 8250) (NOTE) CPT: (test code = 8400) (NOTE) Herman F AustinSURGICAL PATHOLOGY [id number] 00:00:00* Test Item Value Reference Range Interpretation Comme nts DIAGNOSIS: (test code = 8200) (NOTE) MICROSCOPIC DESCRIPTION: (te st code = 8210) (NOTE) CLINICAL DATA: (test code = 8401) (NOTE) GROSS DESCRIPTION: (test code = 8220) (NOTE) PATHOLOGIST: (test code = 8250) (NOTE) CPT: (test code = 8400) (NOTE) Herman Escobedo AustinSURGICAL PATHOLOGY [id number] 00:00:00* Test Item Value Reference Range Interpretation Comme nts DIAGNOSIS: (test code = 8200) (NOTE) MICROSCOPIC DESCRIPTION: (te st code = 8210) (NOTE) CLINICAL DATA: (test code = 8401) (NOTE) GROSS DESCRIPTION: (test code = 8220) (NOTE) PATHOLOGIST: (test code = 8250) (NOTE) CPT: (test code = 8400) (NOTE) Herman BanksLIPID [id number] 03:24:51* Test Item Value Reference Range Interpretation [...] SPECIMENS. FOR MOREINFORMATION, SEE CLIENT ANNOUNCEMENT AT [email or web address] RISK RATIO LDL/HDL (test code = 2238) 2.98 RATIO <3.22 UNLESS OTHERW ISE INDICATED, ALL TESTING PERFORMED [facility] [employer] [address] [place] [address] STRING STUDIES DIRECTOR: ONELIA MARC M.D. CLIA NUMBER [id number] [place]. [id number] CBC W/AUTO DIFF WITH [id number] 02:59:19* Test Item Value Reference Range Interpretation [...] 0.00-0.10 ABS NUCLEATED RBCS (test code = 65365) 0.00 K/UL 0.00-0.11 CBC W/AUTO [id number] 00:00:00* Test Item Value Reference Range Interpretation [...] ABS NUCLEATED RBCS (test cod e = 76598) 0.00 K/UL Herman BanksLIPID [id number] 00:00:00* Test Item Value Reference Range Interpretation Comme nts CHOLESTEROL (test code = 2210) 208 MG/DL TRIGLYCERIDES (test code = 2232) 157 MG/DL HDL CHOLESTEROL (test code = 2220) 45 MG/DL CALC LDL CHOL (test code = 2237) 134 MG/DL RISK RATIO LDL/HDL (test cod e = 2238) 2.98 RATIO Herman Escobedo DarrenCBC W/AUTO [id number] 00:00:00* Test Item Value Reference Range Interpretation [...] ABS NUCLEATED RBCS (test cod e = 89014) 0.00 K/UL Herman BanksLIPID [id number] 00:00:00* Test Item Value Reference Range Interpretation Comme nts CHOLESTEROL (test code = 2210) 208 MG/DL TRIGLYCERIDES (test code = 2232) 157 MG/DL HDL CHOLESTEROL (test code = 2220) 45 MG/DL CALC LDL CHOL (test code = 2237) 134 MG/DL RISK RATIO LDL/HDL (test cod e = 2238) 2.98 RATIO Herman BanksCBC W/AUTO [id number] 00:00:00* Test Item Value Reference Range Interpretation [...] ABS NUCLEATED RBCS (test cod e = 45710) 0.00 K/UL Herman Escobedo LynnLIPID [id number] 00:00:00* Test Item Value Reference Range Interpretation Comme nts CHOLESTEROL (test code = 2210) 208 MG/DL TRIGLYCERIDES (test code = 2232) 157 MG/DL HDL CHOLESTEROL (test code = 2220) 45 MG/DL CALC LDL CHOL (test code = 2237) 134 MG/DL RISK RATIO LDL/HDL (test cod e = 2238) 2.98 RATIO Herman BanksCOMPREHENSIVE METABOLIC [id number] 00:00:00* Test Item Value Reference Range Interpretation Comme nts GLUCOSE (test code = 2217) 129 MG/DL BUN (test code = 2208) 9 MG/DL CREATININE (test code = 2214) 1.10 MG/DL eGFR AMER. (test cod e = 75395) 60 ML/MIN/1.73 eGFR NON- AMER. (test code = 73776) 52 ML/MIN/1.73 CALC BUN/CREAT (test code = [...] code = 2219) 24 U/L Herman BanksLIPID [id number] 00:00:00* Test Item Value Reference Range Interpretation Comme nts CHOLESTEROL (test code = 2210) 197 MG/DL TRIGLYCERIDES (test code = 2232) 107 MG/DL HDL CHOLESTEROL (test code = 2220) 55 MG/DL CALC LDL CHOL (test code = 2237) 121 MG/DL RISK RATIO LDL/HDL (test cod e = 2238) 2.20 RATIO Herman BanksCBC W/AUTO [id number] 00:00:00* Test Item Value Reference Range Interpretation [...] ABS NUCLEATED RBCS (test cod e = 18039) 0.00 K/UL Herman BanksCOMPREHENSIVE METABOLIC [id number] 00:00:00* Test Item Value Reference Range Interpretation Comme nts GLUCOSE (test code = 2217) 129 MG/DL BUN (test code = 2208) 9 MG/DL CREATININE (test code = 2214) 1.10 MG/DL eGFR AMER. (test cod e = 27021) 60 ML/MIN/1.73 eGFR NON- AMER. (test code = 19498) 52 ML/MIN/1.73 CALC BUN/CREAT (test code = [...] code = 2219) 24 U/L Herman BanksLIPID [id number] 00:00:00* Test Item Value Reference Range Interpretation Comme nts CHOLESTEROL (test code = 2210) 197 MG/DL TRIGLYCERIDES (test code = 2232) 107 MG/DL HDL CHOLESTEROL (test code = 2220) 55 MG/DL CALC LDL CHOL (test code = 2237) 121 MG/DL RISK RATIO LDL/HDL (test cod e = 2238) 2.20 RATIO Herman BanksCBC W/AUTO [id number] 00:00:00* Test Item Value Reference Range Interpretation [...] ABS NUCLEATED RBCS (test cod e = 28003) 0.00 K/UL Herman F AustinCOMPREHENSIVE METABOLIC [id number] 00:00:00* Test Item Value Reference Range Interpretation Comme nts GLUCOSE (test code = 2217) 129 MG/DL BUN (test code = 2208) 9 MG/DL CREATININE (test code = 2214) 1.10 MG/DL eGFR AMER. (test cod e = 25064) 60 ML/MIN/1.73 eGFR NON- AMER. (test code = 21813) 52 ML/MIN/1.73 CALC BUN/CREAT (test code = [...] code = 2219) 24 U/L Herman BanksLIPID [id number] 00:00:00* Test Item Value Reference Range Interpretation Comme nts CHOLESTEROL (test code = 2210) 197 MG/DL TRIGLYCERIDES (test code = 2232) 107 MG/DL HDL CHOLESTEROL (test code = 2220) 55 MG/DL CALC LDL CHOL (test code = 2237) 121 MG/DL RISK RATIO LDL/HDL (test cod e = 2238) 2.20 RATIO eHrman BanksCBC W/AUTO [id number] 00:00:00* Test Item Value Reference Range Interpretation [...] ABS NUCLEATED RBCS (test cod e = 60402) 0.00 K/UL Herman Escobedo [facility] [id number] 00:00:00* Test Item Value Reference Range Interpretation Comme nts DIAGNOSIS: (test code = 8200) (NOTE) MICROSCOPIC DESCRIPTION: (te st code = 8210) (NOTE) CLINICAL DATA: (test code = 8401) (NOTE) GROSS DESCRIPTION: (test code = 8220) (NOTE) PATHOLOGIST: (test code = 8250) (NOTE) CPT: (test code = 8400) (NOTE) Herman Escobedo AustinSURGICAL PATHOLOGY [id number] 00:00:00* Test Item Value Reference Range Interpretation Comme nts DIAGNOSIS: (test code = 8200) (NOTE) MICROSCOPIC DESCRIPTION: (te st code = 8210) (NOTE) CLINICAL DATA: (test code = 8401) (NOTE) GROSS DESCRIPTION: (test code = 8220) (NOTE) PATHOLOGIST: (test code = 8250) (NOTE) CPT: (test code = 8400) (NOTE) Herman Escobedo AustinSURGICAL PATHOLOGY [id number] 00:00:00* Test Item Value Reference Range Interpretation Comme nts DIAGNOSIS: (test code = 8200) (NOTE) MICROSCOPIC DESCRIPTION: (te st code = 8210) (NOTE) CLINICAL DATA: (test code = 8401) (NOTE) GROSS DESCRIPTION: (test code = 8220) (NOTE) PATHOLOGIST: (test code = 8250) (NOTE) CPT: (test code = 8400) (NOTE) Herman BanksPAP TEST, THINPREP, [id number] 00:00:00* Test Item Value Reference Range Interpretation Comme nts SOURCE: (test code = 8001) Cervical/Endocervica l SLIDES: (test code = 8011) 2 LMP: (test code = 8021) SEE NOTE SPECIMEN ADEQUACY: (test code = 92184) (NOTE) INTERPRETATION: (test code = 07146) NILM/NO EPITH. ABNORMALITY;SEE BELOW OTHER COMMENTS: (test code = 8081) (NOTE) TRADING MANAGER: (test code = 8101) TEJA Guzman(ASCP)I AC PATHOLOGIST INTERPRETATION BY: (test code = 8122) Mana Quintana M.D. LOCATION: (test code = 48232) (NOTE) CPT: (test code = 8140) (NOTE) Herman Escobedo AustinHPV HIGH RISK WITH GENOTYPE, [id number] 00:00:00* Test Item Value Reference Range Interpretation Comme nts HPV HIGH RISK INTERP (test c ode = 86223) NEGATIVE HPV 16 (test code = 21584) NEGATIVE HPV 18 (test code = 48173) NEGATIVE HPV, HR, OTHER GENOTYPES (te st code = 27265) NEGATIVE Herman Escobedo AustinPAP TEST, THINPREP, [id number] 00:00:00* Test Item Value Reference Range Interpretation Comme nts SOURCE: (test code = 8001) Cervical/Endocervica l SLIDES: (test code = 8011) 2 LMP: (test code = 8021) SEE NOTE SPECIMEN ADEQUACY: (test code = 15631) (NOTE) INTERPRETATION: (test code = 53832) NILM/NO EPITH. ABNORMALITY;SEE BELOW OTHER COMMENTS: (test code = 8081) (NOTE) TRADING MANAGER: (test code = 8101) TEJA Guzman(ASCP)I AC PATHOLOGIST INTERPRETATION BY: (test code = 8122) Mana Quintana M.D. LOCATION: (test code = 19542) (NOTE) CPT: (test code = 8140) (NOTE) Herman F AustinHPV HIGH RISK WITH GENOTYPE, [id number] 00:00:00* Test Item Value Reference Range Interpretation Comme nts HPV HIGH RISK INTERP (test c ode = 30267) NEGATIVE HPV 16 (test code = 57507) NEGATIVE HPV 18 (test code = 07923) NEGATIVE HPV, HR, OTHER GENOTYPES (te st code = 73432) NEGATIVE Herman F AustinPAP TEST, THINPREP, [id number] 00:00:00* Test Item Value Reference Range Interpretation Comme nts SOURCE: (test code = 8001) Cervical/Endocervica l SLIDES: (test code = 8011) 2 LMP: (test code = 8021) SEE NOTE SPECIMEN ADEQUACY: (test code = 67216) (NOTE) INTERPRETATION: (test code = 70762) NILM/NO EPITH. ABNORMALITY;SEE BELOW OTHER COMMENTS: (test code = 8081) (NOTE) TRADING MANAGER: (test code = 8101) TEJA Guzman(ASCP)I AC PATHOLOGIST INTERPRETATION BY: (test code = 8122) Mana Quintana M.D. LOCATION: (test code = 33202) (NOTE) CPT: (test code = 8140) (NOTE) Herman Escobedo DarrenHPV HIGH RISK WITH GENOTYPE, [id number] 00:00:00* Test Item Value Reference Range Interpretation Comme nts HPV HIGH RISK INTERP (test c ode = 36153) NEGATIVE HPV 16 (test code = 97252) NEGATIVE HPV 18 (test code = 60238) NEGATIVE HPV, HR, OTHER GENOTYPES (te st code = 97735) NEGATIVE Herman Escobedo DarrenCBC W/AUTO [id number] 00:00:00* Test Item Value Reference Range Interpretation [...] 1015) 257 K/UL Herman Escobedo DarrenCOMPREHENSIVE METABOLIC [id number] 00:00:00* Test Item Value Reference Range Interpretation Comme nts GLUCOSE (test code = 2217) 92 MG/DL BUN (test code = 2208) 5 MG/DL CREATININE (test code = 2214) 0.66 MG/DL eGFR AMER. (test cod e = 48507) 107 ML/MIN/1.73 eGFR NON- AMER. (test code = 26353) 92 ML/MIN/1.73 CALC BUN/CREAT (test code = [...] = 2219) 36 U/L Herman BanksCBC W/AUTO [id number] 00:00:00* Test Item Value Reference Range Interpretation [...] (test code = 1015) 257 K/UL Herman BanksCOMPREHENSIVE METABOLIC [id number] 00:00:00* Test Item Value Reference Range Interpretation Comme nts GLUCOSE (test code = 2217) 92 MG/DL BUN (test code = 2208) 5 MG/DL CREATININE (test code = 2214) 0.66 MG/DL eGFR AMER. (test cod e = 61380) 107 ML/MIN/1.73 eGFR NON- AMER. (test code = 25666) 92 ML/MIN/1.73 CALC BUN/CREAT (test code = [...] = 2219) 36 U/L Herman BanksCBC W/AUTO [id number] 00:00:00* Test Item Value Reference Range Interpretation [...] (test code = 1015) 257 K/UL Herman BanksCOMPREHENSIVE METABOLIC [id number] 00:00:00* Test Item Value Reference Range Interpretation Comme nts GLUCOSE (test code = 2217) 92 MG/DL BUN (test code = 2208) 5 MG/DL CREATININE (test code = 2214) 0.66 MG/DL eGFR AMER. (test cod e = 07158) 107 ML/MIN/1.73 eGFR NON- AMER. (test code = 24922) 92 ML/MIN/1.73 CALC BUN/CREAT (test code = [...] (test code = 2219) 36 U/L Herman BanksCOMPREHENSIVE METABOLIC [id number] 00:00:00* Test Item Value Reference Range Interpretation Comme nts GLUCOSE (test code = 2217) 97 MG/DL BUN (test code = 2208) 10 MG/DL CREATININE (test code = 2214) 0.78 MG/DL eGFR AMER. (test cod e = 14112) 92 ML/MIN/1.73 eGFR NON- AMER. (test code = 68536) 79 ML/MIN/1.73 CALC BUN/CREAT (test code = [...] code = 2219) 23 U/L Herman BanksLIPID [id number] 00:00:00* Test Item Value Reference Range Interpretation Comme nts CHOLESTEROL (test code = 2210) 241 MG/DL TRIGLYCERIDES (test code = 2232) 97 MG/DL HDL CHOLESTEROL (test code = 2220) 62 MG/DL CALC LDL CHOL (test code = 2237) 158 MG/DL RISK RATIO LDL/HDL (test cod e = 2238) 2.55 RATIO Herman BanksCBC W/AUTO [id number] 00:00:00* Test Item Value Reference Range Interpretation [...] (test code = 1015) 271 K/UL Herman [id number] 00:00:00* Test Item Value Reference Range Interpretation Comme nts TSH, THIRD GENERATION (test code = 2821) 0.355 UIU/ML Herman BanksCOMPREHENSIVE METABOLIC [id number] 00:00:00* Test Item Value Reference Range Interpretation Comme nts GLUCOSE (test code = 2217) 97 MG/DL BUN (test code = 2208) 10 MG/DL CREATININE (test code = 2214) 0.78 MG/DL eGFR AMER. (test cod e = 76382) 92 ML/MIN/1.73 eGFR NON- AMER. (test code = 35183) 79 ML/MIN/1.73 CALC BUN/CREAT (test code = [...] code = 2219) 23 U/L Herman BanksLIPID [id number] 00:00:00* Test Item Value Reference Range Interpretation Comme nts CHOLESTEROL (test code = 2210) 241 MG/DL TRIGLYCERIDES (test code = 2232) 97 MG/DL HDL CHOLESTEROL (test code = 2220) 62 MG/DL CALC LDL CHOL (test code = 2237) 158 MG/DL RISK RATIO LDL/HDL (test cod e = 2238) 2.55 RATIO Herman BanksCBC W/AUTO [id number] 00:00:00* Test Item Value Reference Range Interpretation [...] (test code = 1015) 271 K/UL Herman [id number] 00:00:00* Test Item Value Reference Range Interpretation Comme nts TSH, THIRD GENERATION (test code = 2821) 0.355 UIU/ML Herman BanksCOMPREHENSIVE METABOLIC [id number] 00:00:00* Test Item Value Reference Range Interpretation Comme nts GLUCOSE (test code = 2217) 97 MG/DL BUN (test code = 2208) 10 MG/DL CREATININE (test code = 2214) 0.78 MG/DL eGFR AMER. (test cod e = 64849) 92 ML/MIN/1.73 eGFR NON- AMER. (test code = 85810) 79 ML/MIN/1.73 CALC BUN/CREAT (test code = [...] code = 2219) 23 U/L Herman BanksLIPID [id number] 00:00:00* Test Item Value Reference Range Interpretation Comme nts CHOLESTEROL (test code = 2210) 241 MG/DL TRIGLYCERIDES (test code = 2232) 97 MG/DL HDL CHOLESTEROL (test code = 2220) 62 MG/DL CALC LDL CHOL (test code = 2237) 158 MG/DL RISK RATIO LDL/HDL (test cod e = 2238) 2.55 RATIO Herman BanksCBC W/AUTO [id number] 00:00:00* Test Item Value Reference Range Interpretation [...] (test code = 1015) 271 K/UL Herman [id number] 00:00:00* Test Item Value Reference Range Interpretation Comme nts TSH, THIRD GENERATION (test code = 2821) 0.355 UIU/ML Herman BanksLIPID [id number] 00:00:00* Test Item Value Reference Range Interpretation Comme nts CHOLESTEROL (test code = 2210) 233 MG/DL TRIGLYCERIDES (test code = 2232) 88 MG/DL HDL CHOLESTEROL (test code = 2220) 69 MG/DL CALC LDL CHOL (test code = 2237) 146 MG/DL RISK RATIO LDL/HDL (test cod e = 2238) 2.12 RATIO Herman BanksCOMPREHENSIVE METABOLIC [id number] 00:00:00* Test Item Value Reference Range Interpretation Comme nts GLUCOSE (test code = 2217) 91 MG/DL BUN (test code = 2208) 11 MG/DL CREATININE (test code = 2214) 0.84 MG/DL eGFR AMER. (test cod e = 55366) 85 ML/MIN/1.73 eGFR NON- AMER. (test code = 80461) 73 ML/MIN/1.73 CALC BUN/CREAT (test code = [...] code = 2219) 28 U/L Herman BanksLIPID [id number] 00:00:00* Test Item Value Reference Range Interpretation Comme nts CHOLESTEROL (test code = 2210) 233 MG/DL TRIGLYCERIDES (test code = 2232) 88 MG/DL HDL CHOLESTEROL (test code = 2220) 69 MG/DL CALC LDL CHOL (test code = 2237) 146 MG/DL RISK RATIO LDL/HDL (test cod e = 2238) 2.12 RATIO Herman BanksCOMPREHENSIVE METABOLIC [id number] 00:00:00* Test Item Value Reference Range Interpretation Comme nts GLUCOSE (test code = 2217) 91 MG/DL BUN (test code = 2208) 11 MG/DL CREATININE (test code = 2214) 0.84 MG/DL eGFR AMER. (test cod e = 03399) 85 ML/MIN/1.73 eGFR NON- AMER. (test code = 79506) 73 ML/MIN/1.73 CALC BUN/CREAT (test code = [...] code = 2219) 28 U/L Herman BanksLIPID [id number] 00:00:00* Test Item Value Reference Range Interpretation Comme nts CHOLESTEROL (test code = 2210) 233 MG/DL TRIGLYCERIDES (test code = 2232) 88 MG/DL HDL CHOLESTEROL (test code = 2220) 69 MG/DL CALC LDL CHOL (test code = 2237) 146 MG/DL RISK RATIO LDL/HDL (test cod e = 2238) 2.12 RATIO Herman BanksCOMPREHENSIVE METABOLIC [id number] 00:00:00* Test Item Value Reference Range Interpretation Comme nts GLUCOSE (test code = 2217) 91 MG/DL BUN (test code = 2208) 11 MG/DL CREATININE (test code = 2214) 0.84 MG/DL eGFR AMER. (test cod e = 50257) 85 ML/MIN/1.73 eGFR NON- AMER. (test code = 73158) 73 ML/MIN/1.73 CALC BUN/CREAT (test code = [...] (test code = 2219) 28 U/L Herman BanksCOMPREHENSIVE METABOLIC [id number] 00:00:00* Test Item Value Reference Range Interpretation Comme nts GLUCOSE (test code = 2217) 102 MG/DL BUN (test code = 2208) 8 MG/DL CREATININE (test code = 2214) 0.62 MG/DL eGFR AMER. (test cod e = 45751) 110 ML/MIN/1.73 eGFR NON- AMER. (test code = 39432) 95 ML/MIN/1.73 CALC BUN/CREAT (test code = [...] (test code = 2219) 37 U/L Herman Escobedo LynnLIPID [id number] 00:00:00* Test Item Value Reference Range Interpretation Comme nts CHOLESTEROL (test code = 2210) 212 MG/DL TRIGLYCERIDES (test code = 2232) 88 MG/DL HDL CHOLESTEROL (test code = 2220) 83 MG/DL CALC LDL CHOL (test code = 2237) 111 MG/DL RISK RATIO LDL/HDL (test cod e = 2238) 1.34 RATIO Herman BanksCBC W/AUTO [id number] 00:00:00* Test Item Value Reference Range Interpretation [...] = 1015) 289 K/UL Herman BanksCOMPREHENSIVE METABOLIC [id number] 00:00:00* Test Item Value Reference Range Interpretation Comme nts GLUCOSE (test code = 2217) 102 MG/DL BUN (test code = 2208) 8 MG/DL CREATININE (test code = 2214) 0.62 MG/DL eGFR AMER. (test cod e = 19953) 110 ML/MIN/1.73 eGFR NON- AMER. (test code = 89138) 95 ML/MIN/1.73 CALC BUN/CREAT (test code = [...] code = 2219) 37 U/L Herman BanksLIPID [id number] 00:00:00* Test Item Value Reference Range Interpretation Comme nts CHOLESTEROL (test code = 2210) 212 MG/DL TRIGLYCERIDES (test code = 2232) 88 MG/DL HDL CHOLESTEROL (test code = 2220) 83 MG/DL CALC LDL CHOL (test code = 2237) 111 MG/DL RISK RATIO LDL/HDL (test cod e = 2238) 1.34 RATIO Herman BnaksCBC W/AUTO [id number] 00:00:00* Test Item Value Reference Range Interpretation [...] (test code = 1015) 289 K/UL Herman F DarrenCOMPREHENSIVE METABOLIC [id number] 00:00:00* Test Item Value Reference Range Interpretation Comme nts GLUCOSE (test code = 2217) 102 MG/DL BUN (test code = 2208) 8 MG/DL CREATININE (test code = 2214) 0.62 MG/DL eGFR AMER. (test cod e = 69299) 110 ML/MIN/1.73 eGFR NON- AMER. (test code = 39557) 95 ML/MIN/1.73 CALC BUN/CREAT (test code = [...] (test code = 2219) 37 U/L Herman Escobedo AustinLIPID [id number] 00:00:00* Test Item Value Reference Range Interpretation Comme nts CHOLESTEROL (test code = 2210) 212 MG/DL TRIGLYCERIDES (test code = 2232) 88 MG/DL HDL CHOLESTEROL (test code = 2220) 83 MG/DL CALC LDL CHOL (test code = 2237) 111 MG/DL RISK RATIO LDL/HDL (test cod e = 2238) 1.34 RATIO Herman BanksCBC W/AUTO [id number] 00:00:00* Test Item Value Reference Range Interpretation [...] (test code = 1015) 289 K/UL Herman BanksLIPID [id number] 00:00:00* Test Item Value Reference Range Interpretation Comme nts CHOLESTEROL, TOTAL (test cod e = 2093-3) 207 mg/dL HDL CHOLESTEROL (test code = 2085-9) 72 mg/dL TRIGLYCERIDES (test code = 2571-8) 128 mg/dL LDL-CHOLESTEROL (test code = 71834-8) 111 mg/dL(calc) CHOL/HDLC RATIO (test code = 9830-1) 2.9 (calc) NON HDL CHOLESTEROL (test code = 94659-4) 135 mg/dL(calc) Herman BanksCOMPREHENSIVE METABOLIC [id number] 00:00:00* Test Item Value Reference Range Interpretation Comme nts GLUCOSE (test code = 2345-7) 95 mg/dL UREA NITROGEN (BUN) (test code = 3094-0) 11 mg/dL CREATININE (test code = 2160-0) 0.71 mg/dL eGFR NON-AFR. CAMEROONIAN (test code = 94239-7) 91 mL/min/1.73m2 eGFR (test code = 47608-4) 105 mL/min/1.73m2 BUN/CREATININE RATIO (test code = 3097-3) NOT APPLICABLE (calc) SODIUM (test code = 2951-2) 137 mmol/L POTASSIUM (test code = 2823-3) 3.7 mmol/L CHLORIDE (test code = 2075-0) 103 mmol/L CARBON DIOXIDE (test code = 2027-9) 24 mmol/L CALCIUM (test code = 75522-7) 9.8 mg/dL PROTEIN, TOTAL (test code = 2885-2) 7.0 g/dL ALBUMIN (test code = 1751-7) 4.0 g/dL GLOBULIN (test code = 64911-5) 3.0 g/dL(calc) ALBUMIN/GLOBULIN RATIO (test code = 1759-0) 1.3 (calc) BILIRUBIN, TOTAL (test code = 1975-2) 0.7 mg/dL ALKALINE PHOSPHATASE (test code = 6768-6) 106 U/L AST (test code = 1920-8) 26 U/L ALT (test code = 1742-6) 19 U/L Herman BanksLIPID [id number] 00:00:00* Test Item Value Reference Range Interpretation Comme nts CHOLESTEROL, TOTAL (test cod e = 3-3) 207 mg/dL HDL CHOLESTEROL (test code = 2085-9) 72 mg/dL TRIGLYCERIDES (test code = 2571-8) 128 mg/dL LDL-CHOLESTEROL (test code = 24319-3) 111 mg/dL(calc) CHOL/HDLC RATIO (test code = 9830-1) 2.9 (calc) NON HDL CHOLESTEROL (test code = 53369-9) 135 mg/dL(calc) Herman Escobedo DarrenCOMPREHENSIVE METABOLIC [id number] 00:00:00* Test Item Value Reference Range Interpretation Comme nts GLUCOSE (test code = 2345-7) 95 mg/dL UREA NITROGEN (BUN) (test code = 3094-0) 11 mg/dL CREATININE (test code = 2160-0) 0.71 mg/dL eGFR NON-AFR. CAMEROONIAN (test code = 94084-0) 91 mL/min/1.73m2 eGFR (test code = 39593-1) 105 mL/min/1.73m2 BUN/CREATININE RATIO (test code = 3097-3) NOT APPLICABLE (calc) SODIUM (test code = 2951-2) 137 mmol/L POTASSIUM (test code = 2823-3) 3.7 mmol/L CHLORIDE (test code = 2075-0) 103 mmol/L CARBON DIOXIDE (test code = 2027-9) 24 mmol/L CALCIUM (test code = 33827-4) 9.8 mg/dL PROTEIN, TOTAL (test code = 2885-2) 7.0 g/dL ALBUMIN (test code = 1751-7) 4.0 g/dL GLOBULIN (test code = 94496-3) 3.0 g/dL(calc) ALBUMIN/GLOBULIN RATIO (test code = 1759-0) 1.3 (calc) BILIRUBIN, TOTAL (test code = 1974-2) 0.7 mg/dL ALKALINE PHOSPHATASE (test code = 6768-6) 106 U/L AST (test code = 1920-8) 26 U/L ALT (test code = 1742-6) 19 U/L Herman Escobedo LynnLIPID [id number] 00:00:00* Test Item Value Reference Range Interpretation Comme nts CHOLESTEROL, TOTAL (test cod e = 2092-3) 207 mg/dL HDL CHOLESTEROL (test code = 2084-9) 72 mg/dL TRIGLYCERIDES (test code = 2571-8) 128 mg/dL LDL-CHOLESTEROL (test code = 12870-4) 111 mg/dL(calc) CHOL/HDLC RATIO (test code = 9830-1) 2.9 (calc) NON HDL CHOLESTEROL (test code = 21873-8) 135 mg/dL(calc) Herman BanksCOMPREHENSIVE METABOLIC [id number] 00:00:00* Test Item Value Reference Range Interpretation Comme nts GLUCOSE (test code = 2345-7) 95 mg/dL UREA NITROGEN (BUN) (test code = 3094-0) 11 mg/dL CREATININE (test code = 2160-0) 0.71 mg/dL eGFR NON-AFR. CAMEROONIAN (test code = 43375-7) 91 mL/min/1.73m2 eGFR (test code = 18774-0) 105 mL/min/1.73m2 BUN/CREATININE RATIO (test code = 3097-3) NOT APPLICABLE (calc) SODIUM (test code = 2951-2) 137 mmol/L POTASSIUM (test code = 2823-3) 3.7 mmol/L CHLORIDE (test code = 2075-0) 103 mmol/L CARBON DIOXIDE (test code = 2027-) 24 mmol/L CALCIUM (test code = 34809-0) 9.8 mg/dL PROTEIN, TOTAL (test code = 2885-2) 7.0 g/dL ALBUMIN (test code = 1751-7) 4.0 g/dL GLOBULIN (test code = 05884-8) 3.0 g/dL(calc) ALBUMIN/GLOBULIN RATIO (test code = 1759-0) 1.3 (calc) BILIRUBIN, TOTAL (test code = 1974-) 0.7 mg/dL ALKALINE PHOSPHATASE (test code = 6768-6) 106 U/L AST (test code = 1920-8) 26 U/L ALT (test code = 1742-6) 19 U/L Herman Escobedo DarrenCOMPREHENSIVE METABOLIC [id number] 00:00:00* Test Item Value Reference Range Interpretation Comme nts GLUCOSE (test code = 2345-7) 85 mg/dL UREA NITROGEN (BUN) (test code = 3094-0) 9 mg/dL CREATININE (test code = 2160-0) 0.69 mg/dL eGFR NON-AFR. CAMEROONIAN (test code = 93476-9) 93 mL/min/1.73m2 eGFR (test code = 13716-7) 107 mL/min/1.73m2 BUN/CREATININE RATIO (test code = 3097-3) NOT APPLICABLE (calc) SODIUM (test code = 2951-2) 134 mmol/L POTASSIUM (test code = 2823-3) 4.0 mmol/L CHLORIDE (test code = 2075-0) 97 mmol/L CARBON DIOXIDE (test code = 2027-) 28 mmol/L CALCIUM (test code = 94298-2) 10.1 mg/dL PROTEIN, TOTAL (test code = 2885-2) 7.6 g/dL ALBUMIN (test code = 1751-7) 4.2 g/dL GLOBULIN (test code = 05505-7) 3.4 g/dL(calc) ALBUMIN/GLOBULIN RATIO (test code = 1759-0) 1.2 (calc) BILIRUBIN, TOTAL (test code = 1974-) 0.5 mg/dL ALKALINE PHOSPHATASE (test code = 6768-6) 93 U/L AST (test code = 1920-8) 43 U/L ALT (test code = 1742-6) 33 U/L Herman Escobedo LynnCOMPREHENSIVE METABOLIC [id number] 00:00:00* Test Item Value Reference Range Interpretation Comme nts GLUCOSE (test code = 2345-7) 85 mg/dL UREA NITROGEN (BUN) (test code = 3094-0) 9 mg/dL CREATININE (test code = 2160-0) 0.69 mg/dL eGFR NON-AFR. CAMEROONIAN (test code = 18183-7) 93 mL/min/1.73m2 eGFR (test code = 18178-1) 107 mL/min/1.73m2 BUN/CREATININE RATIO (test code = 3097-3) NOT APPLICABLE (calc) SODIUM (test code = 2951-2) 134 mmol/L POTASSIUM (test code = 2823-3) 4.0 mmol/L CHLORIDE (test code = 2075-0) 97 mmol/L CARBON DIOXIDE (test code = 2027-9) 28 mmol/L CALCIUM (test code = 56683-1) 10.1 mg/dL PROTEIN, TOTAL (test code = 2885-2) 7.6 g/dL ALBUMIN (test code = 1751-7) 4.2 g/dL GLOBULIN (test code = 37672-9) 3.4 g/dL(calc) ALBUMIN/GLOBULIN RATIO (test code = 1759-0) 1.2 (calc) BILIRUBIN, TOTAL (test code = 1975-2) 0.5 mg/dL ALKALINE PHOSPHATASE (test code = 6768-6) 93 U/L AST (test code = 1920-8) 43 U/L ALT (test code = 1742-6) 33 U/L Herman Escobedo LynnCOMPREHENSIVE METABOLIC [id number] 00:00:00* Test Item Value Reference Range Interpretation Comme nts GLUCOSE (test code = 2345-7) 85 mg/dL UREA NITROGEN (BUN) (test code = 3094-0) 9 mg/dL CREATININE (test code = 2160-0) 0.69 mg/dL eGFR NON-AFR. CAMEROONIAN (test code = 45725-8) 93 mL/min/1.73m2 eGFR (test code = 89211-5) 107 mL/min/1.73m2 BUN/CREATININE RATIO (test code = 3097-3) NOT APPLICABLE (calc) SODIUM (test code = 2951-2) 134 mmol/L POTASSIUM (test code = 2823-3) 4.0 mmol/L CHLORIDE (test code = 2075-0) 97 mmol/L CARBON DIOXIDE (test code = 2027-9) 28 mmol/L CALCIUM (test code = 73954-6) 10.1 mg/dL PROTEIN, TOTAL (test code = 2885-2) 7.6 g/dL ALBUMIN (test code = 1751-7) 4.2 g/dL GLOBULIN (test code = 19918-7) 3.4 g/dL(calc) ALBUMIN/GLOBULIN RATIO (test code = 1759-0) 1.2 (calc) BILIRUBIN, TOTAL (test code = 1975-2) 0.5 mg/dL ALKALINE PHOSPHATASE (test code = 6768-6) 93 U/L AST (test code = 1920-8) 43 U/L ALT (test code = 1742-6) 33 U/L Herman BanksLIPID PANEL WITH REFLEX TO DIRECT LDL [ADDED]2017-02-13 00:00:00 * Test Item Value Reference Range Interpretation Comme nts CHOLESTEROL, TOTAL (test cod e = 2093-3) 282 mg/dL HDL CHOLESTEROL (test code = 2085-9) 102 mg/dL TRIGLYCERIDES (test code = 2571-8) 68 mg/dL LDL-CHOLESTEROL (test code = 44002-6) 166 mg/dL(calc) CHOL/HDLC RATIO (test code = 9830-1) 2.8 (calc) NON HDL CHOLESTEROL (test code = 75274-6) 180 mg/dL(calc) Herman BanksCOMPREHENSIVE METABOLIC PANEL [ADDED]2017-02-13 00:00:00* Test Item Value Reference Range Interpretation Comme nts GLUCOSE (test code = 2345-7) 100 mg/dL UREA NITROGEN (BUN) (test code = 3094-0) 14 mg/dL CREATININE (test code = 2160-0) 0.82 mg/dL eGFR NON-AFR. CAMEROONIAN (test code = 90294-9) 77 mL/min/1.73m2 eGFR (test code = 55149-8) 89 mL/min/1.73m2 BUN/CREATININE RATIO (test code = 3097-3) NOT APPLICABLE (calc) SODIUM (test code = 2951-2) 137 mmol/L POTASSIUM (test code = 2823-3) 4.7 mmol/L CHLORIDE (test code = 2075-0) 105 mmol/L CARBON DIOXIDE (test code = 2027-9) 23 mmol/L CALCIUM (test code = 98249-2) 10.0 mg/dL PROTEIN, TOTAL (test code = 2885-2) 7.8 g/dL ALBUMIN (test code = 1751-7) 4.3 g/dL GLOBULIN (test code = 78583-4) 3.5 g/dL(calc) ALBUMIN/GLOBULIN RATIO (test code = 1759-0) 1.2 (calc) BILIRUBIN, TOTAL (test code = 1975-2) 0.9 mg/dL ALKALINE PHOSPHATASE (test code = 6768-6) 122 U/L AST (test code = 1920-8) 55 U/L ALT (test code = 1742-6) 41 U/L [facility]FF[facility]T) [ADDED]2017-02-13 00:00:00* Test Item Value [...] cells/uL ABSOLUTE BAND NEUTROPHILS (test code = 27641-3) DNR cells/uL ABSOLUTE METAMYELOCYTES (shanice t code = 07765-1) DNR cells/uL ABSOLUTE MYELOCYTES (test code = 67800-0) DNR cells/uL ABSOLUTE PROMYELOCYTES (test code = 54192-9) DNR cells/uL ABSOLUTE LYMPHOCYTES (test code = 731-0) 2944 cells/uL ABSOLUTE MONOCYTES (test cod e = 742-7) 614 cells/uL ABSOLUTE EOSINOPHILS (test code = 711-2) 77 cells/uL ABSOLUTE BASOPHILS (test cod e = 704-7) 51 cells/uL ABSOLUTE BLASTS (test code = 92498-6) DNR cells/uL ABSOLUTE NUCLEATED RBC (test code = 85905-7) DNR cells/uL NEUTROPHILS (test code = 770-8) 42.4 % BAND NEUTROPHILS (test code = 764-1) DNR % METAMYELOCYTES (test code = 740-1) DNR % MYELOCYTES (test code = 749-2) DNR % PROMYELOCYTES (test code = 783-1) DNR % LYMPHOCYTES (test code = 736-9) 46.0 % REACTIVE LYMPHOCYTES (test code = 61276-0) DNR % MONOCYTES (test code = 5905-5) 9.6 % EOSINOPHILS (test code = 713-8) 1.2 % BASOPHILS (test code = 706-2) 0.8 % BLASTS (test code = 709-6) DNR % NUCLEATED RBC (test code = 02749-1) DNR /100WBC COMMENT(S) (test code = 8251-1) DNR Herman BanksLIPID PANEL WITH REFLEX TO DIRECT LDL [ADDED]2017-02-13 00:00:00 * Test Item Value Reference Range Interpretation Comme nts CHOLESTEROL, TOTAL (test cod e = 2093-3) 282 mg/dL HDL CHOLESTEROL (test code = 2085-9) 102 mg/dL TRIGLYCERIDES (test code = 2571-8) 68 mg/dL LDL-CHOLESTEROL (test code = 03334-9) 166 mg/dL(calc) CHOL/HDLC RATIO (test code = 9830-1) 2.8 (calc) NON HDL CHOLESTEROL (test code = 59656-1) 180 mg/dL(calc) Herman BanksCOMPREHENSIVE METABOLIC PANEL [ADDED]2017-02-13 00:00:00* Test Item Value Reference Range Interpretation Comme nts GLUCOSE (test code = 2345-7) 100 mg/dL UREA NITROGEN (BUN) (test code = 3094-0) 14 mg/dL CREATININE (test code = 2160-0) 0.82 mg/dL eGFR NON-AFR. CAMEROONIAN (test code = 87137-5) 77 mL/min/1.73m2 eGFR (test code = 94619-1) 89 mL/min/1.73m2 BUN/CREATININE RATIO (test code = 3097-3) NOT APPLICABLE (calc) SODIUM (test code = 2951-2) 137 mmol/L POTASSIUM (test code = 2823-3) 4.7 mmol/L CHLORIDE (test code = 2075-0) 105 mmol/L CARBON DIOXIDE (test code = 2027-9) 23 mmol/L CALCIUM (test code = 85101-5) 10.0 mg/dL PROTEIN, TOTAL (test code = 2885-2) 7.8 g/dL ALBUMIN (test code = 1751-7) 4.3 g/dL GLOBULIN (test code = 99078-7) 3.5 g/dL(calc) ALBUMIN/GLOBULIN RATIO (test code = 1759-0) 1.2 (calc) BILIRUBIN, TOTAL (test code = 1975-2) 0.9 mg/dL ALKALINE PHOSPHATASE (test code = 6768-6) 122 U/L AST (test code = 1920-8) 55 U/L ALT (test code = 1742-6) 41 U/L [facility]T) [ADDED]2017-02-13 00:00:00* Test Item Value [...] cells/uL ABSOLUTE BAND NEUTROPHILS (test code = 43510-4) DNR cells/uL ABSOLUTE METAMYELOCYTES (shanice t code = 73018-0) DNR cells/uL ABSOLUTE MYELOCYTES (test code = 58113-8) DNR cells/uL ABSOLUTE PROMYELOCYTES (test code = 50480-7) DNR cells/uL ABSOLUTE LYMPHOCYTES (test code = 731-0) 2944 cells/uL ABSOLUTE MONOCYTES (test cod e = 742-7) 614 cells/uL ABSOLUTE EOSINOPHILS (test code = 711-2) 77 cells/uL ABSOLUTE BASOPHILS (test cod e = 704-7) 51 cells/uL ABSOLUTE BLASTS (test code = 56719-5) DNR cells/uL ABSOLUTE NUCLEATED RBC (test code = 06321-1) DNR cells/uL NEUTROPHILS (test code = 770-8) 42.4 % BAND NEUTROPHILS (test code = 764-1) DNR % METAMYELOCYTES (test code = 740-1) DNR % MYELOCYTES (test code = 749-2) DNR % PROMYELOCYTES (test code = 783-1) DNR % LYMPHOCYTES (test code = 736-9) 46.0 % REACTIVE LYMPHOCYTES (test code = 63491-7) DNR % MONOCYTES (test code = 5905-5) 9.6 % EOSINOPHILS (test code = 713-8) 1.2 % BASOPHILS (test code = 706-2) 0.8 % BLASTS (test code = 709-6) DNR % NUCLEATED RBC (test code = 89152-8) DNR /100WBC COMMENT(S) (test code = 8251-1) DNR Herman BanksLIPID PANEL WITH REFLEX TO DIRECT LDL [ADDED]2017-02-13 00:00:00 * Test Item Value Reference Range Interpretation Comme nts CHOLESTEROL, TOTAL (test cod e = 2093-3) 282 mg/dL HDL CHOLESTEROL (test code = 2085-9) 102 mg/dL TRIGLYCERIDES (test code = 2571-8) 68 mg/dL LDL-CHOLESTEROL (test code = 13880-0) 166 mg/dL(calc) CHOL/HDLC RATIO (test code = 9830-1) 2.8 (calc) NON HDL CHOLESTEROL (test code = 05400-0) 180 mg/dL(calc) Herman BanksCOMPREHENSIVE METABOLIC PANEL [ADDED]2017-02-13 00:00:00* Test Item Value Reference Range Interpretation Comme nts GLUCOSE (test code = 2345-7) 100 mg/dL UREA NITROGEN (BUN) (test code = 3094-0) 14 mg/dL CREATININE (test code = 2160-0) 0.82 mg/dL eGFR NON-AFR. CAMEROONIAN (test code = 19910-9) 77 mL/min/1.73m2 eGFR (test code = 87932-9) 89 mL/min/1.73m2 BUN/CREATININE RATIO (test code = 3097-3) NOT APPLICABLE (calc) SODIUM (test code = 2951-2) 137 mmol/L POTASSIUM (test code = 2823-3) 4.7 mmol/L CHLORIDE (test code = 2075-0) 105 mmol/L CARBON DIOXIDE (test code = 2027-9) 23 mmol/L CALCIUM (test code = 28891-8) 10.0 mg/dL PROTEIN, TOTAL (test code = 2885-2) 7.8 g/dL ALBUMIN (test code = 1751-7) 4.3 g/dL GLOBULIN (test code = 96363-1) 3.5 g/dL(calc) ALBUMIN/GLOBULIN RATIO (test code = 1759-0) 1.2 (calc) BILIRUBIN, TOTAL (test code = 1975-2) 0.9 mg/dL ALKALINE PHOSPHATASE (test code = 6768-6) 122 U/L AST (test code = 1920-8) 55 U/L ALT (test code = 1742-6) 41 U/L [facility]PLT) [ADDED]2017-02-13 00:00:00* Test Item Value [...] cells/uL ABSOLUTE BAND NEUTROPHILS (test code = 18480-8) DNR cells/uL ABSOLUTE METAMYELOCYTES (shanice t code = 41086-0) DNR cells/uL ABSOLUTE MYELOCYTES (test code = 60463-9) DNR cells/uL ABSOLUTE PROMYELOCYTES (test code = 55027-0) DNR cells/uL ABSOLUTE LYMPHOCYTES (test code = 731-0) 2944 cells/uL ABSOLUTE MONOCYTES (test cod e = 742-7) 614 cells/uL ABSOLUTE EOSINOPHILS (test code = 711-2) 77 cells/uL ABSOLUTE BASOPHILS (test cod e = 704-7) 51 cells/uL ABSOLUTE BLASTS (test code = 77538-6) DNR cells/uL ABSOLUTE NUCLEATED RBC (test code = 36952-6) DNR cells/uL NEUTROPHILS (test code = 770-8) 42.4 % BAND NEUTROPHILS (test code = 764-1) DNR % METAMYELOCYTES (test code = 740-1) DNR % MYELOCYTES (test code = 749-2) DNR % PROMYELOCYTES (test code = 783-1) DNR % LYMPHOCYTES (test code = 736-9) 46.0 % REACTIVE LYMPHOCYTES (test code = 62093-0) DNR % MONOCYTES (test code = 5905-5) 9.6 % EOSINOPHILS (test code = 713-8) 1.2 % BASOPHILS (test code = 706-2) 0.8 % BLASTS (test code = 709-6) DNR % NUCLEATED RBC (test code = 01086-9) DNR /100WBC COMMENT(S) (test code = 8251-1) DNR Herman Banks Consult Notes Date/Time Note Provider Source 2023-08-22 12:54:32 Associated Order(s): CONSULT ADULT OCCUPATIONAL THERAPY OT GENERAL EVALUATION Consult received via [employer], EMR reviewed and evaluation completed 08/22/23. Patient referred to occupational therapy for evaluation and treatment. Patient is a 68 year old female who presents to hospital for Critical ischemia of extremity with history of revascularization of same extremity [I70.229, Z98.890] Critical limb ischemia of right lower extremity [I70.221] s/p ARTERIOGRAM (Right: Groin) FEMORAL-DISTAL BYPASS GRAFT (Right: Leg) 08/20/2023. Patient agreeable to participate in occupational therapy. Discharge Recommendations: Therapy Needs and Potential:- Patient would benefit from continued skilled occupational therapy services to address: Decline in basic activities of daily living, Decline in instrumental activities of daily living, Decreased strength, and Decreased endurance - Patient demonstrates good potential to improve and meet therapy goals with further skilled occupational therapy services. - Patient appears motivated to improve their B/IADLs and return to their previous level of function. - Patient demonstrates ability to tolerate at least 30-60 minutes of active participation in occupational therapy. - Patient able to follow commands: 1-step Yes, Multi-step Yes, Inconsistencies No Challenges to Home Transition:- Increased risk of falls Equipment Recommendations:Tub transfer bench, Grab bars, Hand held shower, Long handled sponge, Long handled pyrotechnician, and Sock aide PLAN OF CARE: At least 2x/week Precautions: Weight bearing status: NA General: PPE Utilized:[place], Gloves, Surgical mask, Fall, and IV lines. Bracing: N/A Current Occupational Performance and/or Treatment: AM-PAC 6 Clicks (Raw Score 0=Dependent, 24=Independent; Low function Raw Score 0= Dependent, 32=Independent): Raw Score - Daily Activity: 17 T-Scale Score - Daily Activity: 37.26 Feeding: Independent, Observed pt eat her lunch meal. Grooming: Independent, Pt able to perform grooming tasks bed level UB Dressing: Minimal Assistance, Assisted pt with changing hospital gowns due to spillage on front of gown LB Dressing: Total Assistance, Pt unable to bend forward at this time Toilet Transfer: Supervision- Min A using rolling walker, Toileting Hygiene: Independent, Per pt report Functional Mobility: Bed mobility: deferred due to pt was just brought her lunch tray. Transfers: sit to stand and stand to sit: Supervision - Min A using rolling walker; Patient/caregiver educated on:Adaptive equipment , ADL training, Compensatory techniques/adaptive strategies, Deep breathing, Energy conservation, Fall prevention, General strengthening, Relaxation/breathing techniques, Role of OT, Safety awareness, and Towel/dowel Patient left semireclining in bed with call caceres in reach. Nursing present. Please, see full evaluation below for more detail. OT EVALUATION: 68 year old female Admit date: 08/19/2023 Date of onset: 08/19/2023 Admit Diagnosis: Critical ischemia of extremity with history of revascularization of same extremity [I70.229, Z98.890] Critical limb ischemia of right lower extremity [I70.221] OT Diagnosis: Impaired BADL independence, Impaired IADL independence, Decreased endurance, and Pain PMH: Past Medical History: Diagnosis Date Hyperlipidemia Hypertension PSH: Past Surgical History: Procedure Laterality Date ARTERIOGRAM Right 08/20/2023 Surgeon: Nilsa De Jesus MD; Location: [facility] OR LOC[facility] FEMORAL-DISTAL BYPASS GRAFT Right 08/20/2023 Surgeon: Nilsa De Jesus MD; Location: [facility] OR LOC[facility] STENT Right 08/2022 right lower leg PAIN: Pain Location: right leg, right foot, and surgical site Pain rating before treatment: 0, After treatment: 0 Pain Management: Reports taking pain meds, Nursing Notified, Decreased movement aides in some pain reduction, and Use of assistive device aides in pain reduction during mobility OCCUPATIONAL ROLES/HOME ENVIRONMENT: Home environment: Lives with friend who works much of the time, Single story home, and 5 steps to enter. Bathroom access: Yes Bathroom setup: Combo Occupation(s): unemployed and applying to medicaid. 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 PERFORMANCE SKILLS/FACTORS: UE Muscle Tone: bilateral WNL UE ROM: bilateral AROM WFL UE Strength: RYLAN UE WFL Hand dominance: right Dexterity/Coordination: bilateral Fine motor skills Intact and bilateral Gross motor skills Intact Endurance - Sitting: Good Standing: Fair+ Sitting Balance - Static: Good Dynamic: Good Standing: Balance - Static Fair+ Dynamic: Fair Dizziness: No Skin Integrity: defer full skin assessment to nursing Sensation: bilateral Intact to light touch Oral Motor: WFL Communication: Able to verbalize needs Yes Other: N/A Vision: WFL Yes Other: reading glasses Hearing: good; no issues reported COGNITION: Orientation: person, place, date/time, and situation Follows Commands: 1-step Yes Multi-step Yes Inconsistencies No Safety Awareness/Judgment: Fair PROBLEM LIST: Decreased independence with ADL and Decreased strength/endurance for functional activity REHAB POTENTIAL/PROGNOSIS: good PATIENT/FAMILY GOALS: To be able to walk and regain Previous level of Function with all ADL.. TREATMENT/INTERVENTION PLAN: Functional motor treatment, Patient/Caregiver Education, Equipment recommendations, Daily living activities, Therapeutic exercises, and Neuromuscular Re-Education GOAL(S): By discharge, patient will increase independence in daily living skills as follows: 1 Patient will perform toilet transfer with independence. 2 Patient will perform UB dressing with minimal assistance. 3 Patient will perform LB dressing with total assistance. 4 Patient will complete grooming tasks with supervision while standing at the sink. 5 Patient will increase endurance for functional activity as evidenced by ability to sustain 20 minutes of active participation. 6 Patient/caregiver will verbalize/demonstrate understanding/proficiency in the following home programs: Adaptive equipment , Compensatory techniques/adaptive strategies, Deep breathing, Energy conservation, Fall prevention, General strengthening, Relaxation/breathing techniques, and Towel/dowel PATIENT-FAMILY TEACHING Patient provided with preferred teaching of verbal information and written information on Adaptive equipment , ADL training, Compensatory techniques/adaptive strategies, Energy conservation, Fall prevention, General strengthening, Relaxation/breathing techniques, Safety awareness, and Towel/dowel. Shows readiness to learn. Verbal instruction and Written material teaching provided. Individual is able to read and verbalizes understanding of teaching provided and needs reinforcement of teaching. JOSY Verma Total Timed Treatment Codes: 30 Min Total Treatment Time: 40 Min Patient Complexity Level High - An occupational therapy [...] to enable patient to complete evaluation component. IFIED COURT INTERPRETER Agustina Mi OT [facility] 2023-08-21 09:53:00 Associated Order(s): CONSULT ADULT PHYSICAL THERAPY Patient agreeable to working with physical therapy. Patient met up in chair. Recommend nursing staff utilize rolling walker with minimal assist to safely assist patient with mobility out of the bed or chair. PHYSICAL THERAPY EVALUATION Consult received, chart reviewed and evaluation complete this date. Patient is referred to PT for evaluation and treatment. Patient is a 68 year old female who presents to hospital for Critical ischemia of extremity with history of revascularization of same extremity [I70.229, Z98.890] Critical limb ischemia of right lower extremity [I70.221] s/p ARTERIOGRAM (Right: Groin) FEMORAL-DISTAL BYPASS GRAFT (Right: Leg) 08/20/2023. Discharge Recommendations: Therapy Needs and Potential: Patient would benefit from continued physical therapy services to address: decline in bed mobility decline in transfers decline in gait and/or balance decreased strength decreased endurance integument compromise Patient demonstrates good potential to improve and meet therapy goals with further physical therapy services. Patient appears motivated to improve their functional mobility and return to their previous level of function. Patient exhibits limited activity tolerance. Challenges to Home Transition: increased risk of falls Equipment recommendations: rolling walker Current Functional Status and/or Treatment: AM-PAC 6 Clicks (Raw Score 0=Dependent, 24=Independent; Low function Raw Score 0= Dependent, 32=Independent): Raw Score - Basic Mobility : 17 T-Scale Score - Basic Mobility : 39.67 Bed Mobility: Defer due to already out of bed and sitting on the recliner chair. As per RN reports, patient requires some assistance to perform this task. Transfers: Sit to stand: Minimal Assistance using Rolling Walker Stand to sit: Minimal Assistance using Rolling Walker Given verbal and tactile cues for hand and leg placement, correct sequencing and safety. Ambulation: Assisted patient with ambulation as follows: 30 feet using Rolling Walker and Minimal Assistance. Patient presenting with Step-to gait pattern. Antalgic gait, decreased step length and slow gait. Therapeutic exercise: patient educated in Adaptive equipment , Compensatory techniques/adaptive strategies, Edema management, Fall prevention, General strengthening, Positioning, Relaxation/breathing techniques, and Safety awareness., instructed patient in the following: ankle pumps, hip abduction/adduction, long arc quads, seated marching, patient/caregiver instructed to perform HEP 3 times per day, 2 sets of 20 repetitions., and patient/caregiver demonstrates understanding of instructions. Functional Outcome Measures: (Values within the past 12 hours) Tinetti Gait Score- # / 12 Initiation of gait: No hesitancy Step length: Only on foot passes the other Foot clearance: Both feet completely clear floor Step Symmetry: Step lengths equal Step continuity: Steps appear continuous Path: Mild/moderate deviation or uses AD Trunk: No sway, but flex of knees/ back or spreads arms Walking: Heels apart Tinetti Gait Score: 8 Tinetti Gait Score Interpretation: >= 7 - Low risk for falls After session, patient up in chair. Call button provided. RN notified and aware. PLAN OF CARE: While in the hospital, PT will follow patient at least 3 times per week,once or twice a day, per patient's tolerance and needs. See below for complete details. Admit Date: 08/19/2023 Hospital Diagnosis:Critical ischemia of extremity with history of revascularization of same extremity [I70.229, Z98.890] Critical limb ischemia of right lower extremity [I70.221] ARTERIOGRAM (Right: Groin) FEMORAL-DISTAL BYPASS GRAFT (Right: Leg) PT Diagnosis: Difficulty walking, Weakness, Malaise/fatigue, Pain, Abnormality of gait and balance, and Integument compromise Weight Bearing Precaution: NA General Precautions: PPE used:Gloves, General, Fall,IV lines, telemetry Bracing/Cast present or required:N/A PMH: Past Medical History: Diagnosis Date Hyperlipidemia Hypertension PSH: Past Surgical History: Procedure Laterality Date ARTERIOGRAM Right 08/20/2023 Surgeon: Nilsa De Jesus MD; Location: [facility] LOC[facility] FEMORAL-DISTAL BYPASS GRAFT Right 08/20/2023 Surgeon: Nilsa De Jesus MD; Location: [facility] LOC[facility] STENT Right 08/2022 right lower leg Prior Living Situation: in a house and with their friend, DME: Single Point Cane, Rolling Walker, Wheel Chair Prior level of Mobility: community ambulation, house hold ambulation, ambulates with no device Suspected ischemic or hemorraghic stroke:No Subjective: patient on the chair and reports doing just okay and agreed to Physical Therapy Patient/Family Goals: to recover and walk Patient/Family verbalizes understanding of condition: Yes PAIN: -Pain Description: aching -Pain Location: right leg and right foot -Pain rating before treatment: does not rate, After treatment: 5 -Pain Management: Nursing Notified, Decreased movement aides in some pain reduction, and Repositioning Provided COMMUNICATION Primary Language: [place] Citizen Able to Verbalize needs: Yes Vision:good; no issues reported and reading glasses Hearing:good; no issues reported ORIENTATION/COGNITION: Oriented to: person, place, date/time, and situation Awake: Yes Alert: Yes Dizzy: Yes, minimal during gait Follows Commands: Yes 1-Step Yes Multi-Step Yes Inconsistent: No NEUROLOGICAL Light Touch: within functional limits bilateral LE, Heel to ruggiero: WFL Tone: WNL BLE BALANCE: Sitting: Static: Excellent Dynamic: Excellent Standing: Static: Fair+ Dynamic: Fair RANGE OF MOTION: within functional limits bilateral LE, Right knee flexion AROM 0-80 degrees STRENGTH: 5/5 (Normal), bilateral LE except Right quads 3/5, Right hip IP 3/5 ENDURANCE: Fair+, Room air SKIN INTEGRITY: Surgical wound Right groin, Right medial thigh PROBLEM LIST: Decline in bed mobility, Decline in gait, Decline in transfers, Decreased strength, Decreased endurance, Decreased balance, Pain, and Integument compromise ASSESSMENT: Patient is a 68 year old female seen secondary to the above listed diagnosis. Patient would benefit from continued PT to address the above listed deficits to maximize independence and safety with functional mobility. Rehabilitation Potential: good Goals: The following goals are to maximize independence and safety with functional mobility to eventually return to prior living situation and prior functional status. Upon discharge, patient and/or family will demonstrate the followin. Supine to sit: Independent 2. Sit to stand: Independent using Rolling Walker 3. Independent with ambulation, Feet: 150 using least assistive device. 4. Demonstrate or verbalize understanding of home exercise program in order to continue with their rehab on their own. Treatment Plan: Gait training, Therapeutic exercise, Transfer training, Balance training, Bed mobility training, Equipment needs assessment, Safety education, patient/caregiver education, and Neuromuscular Re-Education PATIENT EDUCATION: Patient provided with preferred teaching of verbal information and demonstration on role of PT, plan of care, . Shows readiness to learn. Verbal instruction and Demonstration teaching provided. Individual is able to read and verbalizes understanding of teaching provided and accurately returns demonstration of skill. Total Time Tx Codes in Minutes: 29 min Total Treatment Time in Minutes: 44 min Wild Griffin PT, DPT License # [id number] [facility] Department of Rehabilitation Services [facility] I[address] INTERPRETER Wild Griffin PT [facility] 2023-08-20 10:31:47 Associated Order(s): CONSULT SURGICAL CO-MANAGEMENT (SCM) Images from the original note were not included. Surgical Co-Management (SCM) Consult Service Consultation Note Patient: Paola Garg Date of Consult: 08/20/2023 Date of Service: 08/20/2023 Referring Physician: Ankit Salomon MD. Reason for Consult: Medical co-management HPI: Paola Garg is a 68 year old [...] Patient was seen by me in the ICU. Home meds: Lovastatin 20 mg daily Xarelto 20 mg daily Methimazole 5 mg daily amlodipine 5 mg daily Coreg 6.25 mg daily Tessalon Perles 100 mg 3 times daily. HISTORIES (personally reviewed by me): Active Ambulatory Problems Diagnosis Date Noted No Active Ambulatory Problems Resolved Ambulatory Problems Diagnosis Date Noted No Resolved Ambulatory Problems Past Medical History: Diagnosis Date Hyperlipidemia Hypertension Past Surgical History: Procedure Laterality Date STENT Right 08/2022 right lower leg Social History Socioeconomic History Marital status: Spouse name: Not on file Number of children: Not on file Years of education: Not on file Highest education level: Not on file Occupational History Not on file Tobacco Use Smoking status: Some Days Types: Cigarettes Smokeless tobacco: Never Tobacco comments: 2 Ciggs a week Substance and Sexual Activity Alcohol use: Not on file Drug use: Not on file Sexual activity: Not on file Other Topics Concern Not on file Social History Narrative Not on file Social Determinants of Health Financial Resource Strain: Not on file Food Insecurity: Not on file Transportation Needs: Not on file Physical Activity: Not on file Stress: Not on file Social Connections: Not on file Intimate Partner Violence: Not on file Housing Stability: Not on file No family history on file. Home medications: Prior to Admission medications Medication Sig Start Date End Date Taking? Authorizing Provider hydroCHLOROthiazide 12.5 mg capsule TAKE 1 CAPSULE BY MOUTH EVERY DAY 08/05/20 Manav De La Torre MD AMLODIPINE 5 mg tablet TAKE 1 TABLET BY MOUTH EVERY DAY 06/14/20 Manav De La Torre MD CARVEDILOL 12.5 mg tablet TAKE 1 TABLET BY MOUTH TWICE A DAY WITH MEALS 06/14/20 Manav De La Torre MD atorvastatin 20 mg tablet Take 1 tablet by mouth at bedtime. 06/13/20 Manav De La Torre MD famotidine 20 mg tablet TAKE 1 TABLET BY MOUTH EVERY 12 HOURS FOR 10 DAYS 07/21/18 Doctor Unassigned, [place] Current Medications: Scheduled meds:amLODIPine, 5 mg, DAILY aspirin, 81 mg, DAILY atorvastatin, 40 mg, QHS carvediloL, 12.5 mg, BID MEALS pantoprazole, 40 mg, DAILY IV meds:heparin 25,000 Units/250 mL IV infusion for DVT, Last Rate: Stopped (08/20/23 0745) PRN meds:heparin 1,000 unit/mL 10,000 Units in NaCl 0.9% (NS) 1,000 mL OR irrigation, , PRN acetaminophen, 650 mg, Q6HPRN heparin 1000 unit/mL, 3,000 Units, FOR REBOLUSING heparin 1000 unit/mL, 3,000 Units, FOR REBOLUSING heparin 25,000 Units/250 mL IV infusion for DVT, 0-2,350 Units/hr, TITRATE ondansetron, 4 mg, Q6HPRN traMADoL, 50 mg, Q4HPRN ALLERGIES: No Known Allergies REVIEW OF SYSTEMS 10 or more systems reviewed, negative except as mentioned in HPI PHYSICAL EXAM BP (!) 137/91 (BP Location: Left arm, Patient Position: Lying right side) | Pulse 95 | Temp 36.7 ?C (98 ?F) (Oral) | Resp 16 | Ht 1.676 m (5' 5.98") | Wt 72.6 kg (160 lb 0.9 oz) | SpO2 100% | BMI 25.85 kg/m? Constitutional: General: Patient is not in acute distress. Appearance: Normal appearance. Cardiovascular: Rate and Rhythm: Normal rate and regular rhythm. Pulses: Normal pulses. Heart sounds: Normal heart sounds. No murmur heard. Pulmonary: Effort: Pulmonary effort is normal. No respiratory distress. Breath sounds: Normal breath sounds. No wheezing. Abdominal: Soft, nontender nondistended. Normal bowel sounds. Musculoskeletal: General: No swelling or tenderness. Normal range of motion. Skin: General: Skin is warm. Coloration: Skin is not jaundiced. Findings: No lesion. LABS/IMAGING - reviewed, recent results as below: Lab Results Component Value Date/Time NA 122 (L) 08/20/2023 03:56 AM K 4.4 08/20/2023 03:56 AM CA 9.1 08/20/2023 03:56 AM CL 98 08/20/2023 03:56 AM BUN 5 (L) 08/20/2023 03:56 AM CREAT 0.60 08/20/2023 03:56 AM EGFR 97.3 08/20/2023 03:56 AM GLU 90 08/20/2023 03:56 AM TCO2 20 (L) 08/20/2023 03:56 AM WBC 6.85 08/20/2023 03:56 AM RBC 3.65 (L) 08/20/2023 03:56 AM PLT 354 08/20/2023 03:56 AM HGB 10.7 (L) 08/20/2023 03:56 AM HCT 30.7 (L) 08/20/2023 03:56 AM ALB 3.7 08/19/2023 02:22 PM TPRO 7.7 08/19/2023 02:22 PM BILIT 0.7 08/19/2023 02:22 PM ALT 13 08/19/2023 02:22 PM AST 29 08/19/2023 02:22 PM ALKPHOS 101 08/19/2023 02:22 PM PHOS 4.0 08/20/2023 03:56 AM MG 2.0 08/20/2023 03:56 AM PTINR 2.1 08/19/2023 03:57 PM PTPAT 24.1 (H) 08/19/2023 03:57 PM APTTPAT >150 (HH) 08/20/2023 05:46 AM Most Recent UA: No results found for: "UPROTEIN", "UPH", "UGLUCOSE", "UKETONES", "UBILI", "UBLOOD", "UUROBILIN", "ULEUKEST", "UNITRITE", "USPGRAV" Radiology (48 HRS): CT ANGIOGRAM ABDOMEN/PELVIS Result Date: 08/20/2023 Occluded right superficial femoral artery. In the stent [...] evaluated at the same time with liver lesions. CT ANGIOGRAM LOWER EXTREMITY BILATERAL W CONTRAST Result Date: 08/20/2023 Occluded right superficial femoral artery. In the stent [...] evaluated at the same time with liver lesions. ASSESSMENT & PLAN: Active Medical Conditions : Right foot critical limb ischemia Acute on chronic hyponatremia Chronic, stable conditions: Hypertension Hyperlipidemia Atrial fibrillation on Xarelto. Hyperthyroidism Patient is hyponatremic with sodium of 122. Only available values from 2019 which was 130. Discontinued hydrochlorothiazide. Will order urine studies to be collected. Continue with home medications as currently ordered.. Switch to Xarelto when appropriate from vascular surgery perspective. DVT Prophylaxis: Per Primary Code Status: Full code Dispo: Per Primary Josef Hammonds MD 08/20/2023 10:31 AM Materials Handling Coordinator Internal Medicine Portions of this note were created using a voice-recognition transcribing system. Typographical errors and incorrect words or phrases may have been missed during proofreading. Please interpret accordingly. . [facility] - Health History and Physical Notes Date/Time Note Provider Source 2023-11-26 11:59:32 Vascular Surgery H&P 68F w/ PMH of HTN, HLD, PAD s/p right femoral to peroneal bypass with cryovein 08/20/2023 with threatened bypass presents for right leg angiogram, possible angioplasty/stent, possible thrombolysis catheter, and all indicated procedures. Patient was examined and has no wounds or ulcers, no rest pain, able to ambulate. Risks of bleeding, infection discussed Nilsa De Jesus MD Vascular Surgery [facility] 2023-08-19 23:26:16 Images from the original note were not included. Vascular Surgery History & Physical Name: Paola Garg : 1955 Chief Complaint: Right leg pain, SFA stent occlusion History of Present Illness: Paola Garg is a 68 year old woman [...] flow distally. She was subsequently transferred to [place] for higher level of care At the time of ER presentation, she reports she was having difficulty moving the toes in her right foot. However currently, she reports that she feels her motor function in her right foot is improving and her pain is improving. She reports she feels she would be able to walk short distances albeit in pain if necessary. Right lower extremity stenting was performed about 1 [...] She reports she has never had an NV and denies any coronary interventions or PCI in the past. She denies fevers, chills, nausea, vomiting, or other recent illness. She does report she has been told she has arterial disease in the left leg as well, however denies any symptoms at this time and state she has declined offered interventions in the past as she is more concerned about her right leg At time of evaluation, she is afebrile and hemodynamically stable. Motor and sensory function intact in the bilateral lower extremities. She reports she feels her symptoms have improved over the evening. She is able to bear weight on the right leg although it is painful, and can plantarflex and dorsiflex at the ankle. Echo from 12/2018 reviewed with normal EF and no significant valvular disease. Medical History: Past Medical History: Diagnosis Date Hyperlipidemia Hypertension Surgical History: Past Surgical History: Procedure Laterality Date STENT Right 08/2022 right lower leg Family History: No family history on file. Social History: Social History Socioeconomic History Marital status: Tobacco Use Smoking status: Some Days Types: Cigarettes Smokeless tobacco: Never Tobacco comments: 2 Ciggs a week Allergies: No Known Allergies Review of Systems: (-)=Negative, (+)=Positive ROS per HPI Physical Examination: Vitals: 08/19/23 2030 BP: 120/84 Pulse: 83 Resp: 18 Temp: 36.4 ?C (97.5 ?F) SpO2: 97% General: No acute distress, behaviorally appropriate, AOx3 HEENT: EOM intact Cardio: Regular rate and rhythm. Respiratory: Not in distress on room air Abd: Soft, non tender Extremities: No wound or ulcers in the bilateral lower extremities. Rubor in the right foot. Neuro: No focal neurological deficits, CN II-XII grossly intact. Motor and sensory function equal and intact in the bilateral lower extremities. Psych: Behaviorally appropriate Vascular Exam: Femoral Pulses: palpable bilaterally Right lower extremity: Monophasic popliteal signal. No obtainable DP or PT doppler signal Left lower extremity: Multiphasic DP signal Lab Data (last 24 hours): Chemistry CBC LFTs Coags, other 122 (L) 92 (L) 4 (L) 80 5.57 12.8 423 (H) AST: 29 ALT: 13 PT: 24.1 (H) INR: 2.1 4.0 23 0.54 36.9 AP: 101 T Rylan: 0.7 PTT: 44 (H) eGFR: 99.8 Ca: 9.3 % Luc: 55.5 Prot: 7.7 Alb: 3.7 Lact: 1.82 Mg: - PO4: - ANC: 3.09 Procal: - Respiratory Cardiac -|-|-|-|- D-dimer: - pBNP: - Trop I: - CK: - CKMB: - Media: Bilateral feet Assessment and Plan: Paola Garg is a 68 year old woman with a medical history as noted, who presents with a 3 week history of worsening right lower extremity pain present at rest and intolerable pain walking short distances. Right leg SFA-popliteal stenting performed 1 year ago, arterial duplex performed demonstrating stent occlusion with monophasic flow distally. She is a current smoker. Development of ischemic rest pain consistent with critical limb ischemia and will require planning of intervention for revascularization to the right lower extremity - Admit to Vascular Surgery - Heparin GTT - Increased home dose statin to Atorvastatin 40 mg - Start ASA 81 mg - Obtain CT Angiogram abdomen pelvis with runoff - TTE - Telemetry - Type and screen - SCM consult - Will likely proceed with diagnostic arteriogram in AM. NPO past midnight, consent to be obtained - Further plan of surgical revascularization pending review of imaging and results of arteriogram Discussed with faculty documentation nurse Dr. Aime Sevilla MD PGY-[address] Res[address] INTERPRETER Associated attestation - Ankit Salomon MD - 08/20/2023 10:[address] INTERPRETER I agree with Miguel Sevilla MD resident note as written . I actively participated in the decision-making process. Please see the resident's note for additional details. Ankit Salomon MD, RPVI, FSVS Vascular Surgery PGY17 [facility] - Health Notes Date/Time Note Provider Source Herman Santana [facility]2024-06-13 15:17:07 Patient was contacted and she has removed the dressing and it is healed and doing well. Re-instructed if anything open no soaking in a bathtub or submerging . Patient verbalized understanding and confirmed f/u appt 12/10 Agustina Funez RNJoint Township District Memorial [id number] 00:00:00 Herman Santana [facility]2024-06-03 09:52:33 Copied from [facility] #[id number]. Topic: Clinical - Medical Advice >> Nov 30, 2023 9:50 AM Patient Advance Seal Delivery System Maintainer wrote: Paola Garg is a 68 year old female Patient is calling asking if she can take the dressing off her surgical site. Surgery 11.26.23 (home) Leilani AriasJoint Township District Memorial [id number] 12:50:38 Patient Name: Paola Garg Full Operative Note Date of Procedure: 11/26/2023 Pre-Operative Diagnosis: PAD Post-Operative Diagnosis: PAD Procedures: 1) US guided L GLOVE CLEANER access 2) Aortogram, RLE diagnostic angiogram 3) Selective catheterization of right common femoral artery Surgeon(s): Dr. Nilsa De eJsus, Resident- Dr. Kavya Smith Anesthesia: MAC Wound Classification: clean Antibiotic Prophylaxis: Ancef Specimens Sent: none Operative Procedure in Detail: After informed consent was obtained, patient was brought into the operating room and placed supine. Procedure was performed under IV sedation. IV ancef was administered preoperatively and time out was conducted with agreement from all the team members. Bilateral groins were prepped and draped in standard sterile fashion. Left GLOVE CLEANER was visualized to be patent on ultrasound and needle access was visualized with ultrasound image saved. Ultrasound was used to access the Left common femoral artery using seldinger technique with a micropuncture set which was exchanged to a 6-Czech sheath. A 0.035" glide wire was introduced into the aorta, and an Omni flush catheter was introduced over the wire to the aorta. Aortogram and RLE angiogram once angle glide catheter was used to cross over to the contralateral side. Diagnostic: Aortogram: patent with patent bilateral renal arteries Iliac arteries: patent bilateral iliac arteries. Right GLOVE CLEANER patent Right profunda artery patent Right SFA occluded Right popliteal artery occluded Right PT artery occluded Right AT artery occluded Right Peroneal artery reconstitutes proximally and patent to the foot Intervention: 6000 units of heparin was given intravenously and redosed every 30 minutes. 6Fr destination sheath was placed down to the GLOVE CLEANER. Glidewire Advantage .035 wire was used along with glidewire to get into the right femoral peroneal bypass but wire was not able to traverse into the bypass. All wires and catheters were removed from the patient. Angioseal closure device was used for the left GLOVE CLEANER without any issues. Left groin was hemostatic with no hematoma. Dermabond was applied. Patient was transferred to PACU laying flat in stable condition. Complications: none Drains / Tubes / Catheters: none Hardware / Implants: none Blood / Fluid Losses: 10cc Post-Operative Condition: stable Practitioner Name: Nilsa De Jesus MD [facility] [id number] 00:00:00 [facility] 10[facility]00:00 Images from the original note were not included. Venipuncture collection performed by clean technique on the left anticubitus. Total of 1 attempts were made. Slight pressure and a bandage/dressing were applied to the site(s). The patient experienced no complications. The following specimens were processed according to instructions and sent to [facility] laboratories per lab order on 11/17/2023 : LT BLUE SST 1 RED LAV PPT DK GREEN ([facility]) DK GREEN ([facility]) NICOLAS DK BLUE (K2) DK BLUE (S) ACD Blood Culture NIPT/NTD [facility] [id number] 16:00:00 Addended by: MACARIO ROSS, CHARLEY Burgos on: 11/16/2023 04:56 PM Modules accepted: Level of Service [facility] [id number] 10:49:11 Spoke with patient. Tried to assist her over the phone. Monitor still not connecting. Patient was advised to call [email or web address]. She would rather come to [place]. Clinic staff will try to assist patient when she arrives. Antonia Galvez RNJoint Township District Memorial [id number] 07:21:52 Paola Garg is a 68 year old female patient calling having error message on her heart monitor, replaced electrode, but still having error message. Please call [phone] Pat SuttonUniversity Hospitals Geauga Medical [id number] 16:00:00 In the event that you have any needs for this student loan counselor please contact [employer] at . This includes supplies and any equipment issued at the appointment. A final report is processed after the company receives the monitor back. It takes approximately 10-14 business days for your doctor to receive this report. You will be contacted with results once it is delivered to your doctor. Return monitor with provided mailing instructions on: 12/04/2023 30-day event monitor applied to patient, tolerated well. Baseline tracing sent/confirmed by company. Instructed on recording manual events, wear, care and return of device; understanding verbalized via teach back. Monitor to be returned to ([employer]) on 12/04/2023. Haylee Arias MAJoint Township District Memorial [id number] 16:31:38 Ally will send new orders to be reviewed and signed. Dr. De Jesus in clinic on 09/25/23. Will fax back as soon as possible. She thanked me for the return call. Radha Mendez [facility]2024-03-28 16:02:13 Copied from [facility] #[id number]. Topic: Clinical - Paperwork/Forms >Sep 24, 2023 3:59 PM Patient Advance Seal Delivery System Maintainer wrote: Paola Garg is a 68 year old female [facility] calling to follow up about HH orders being faxed over to their office and whether or not they are the PP & OT Home health orders for PT. Liza from [facility] states they have been waiting on paperwork since 09.01.23. Please advise Alexia LevineUniversity Hospitals Geauga Medical [id number] 14:53:58 Paperwork is in hand, signed by Vascular PA. Returned via fax. Radha Mendez LVN 09/21/2023 2:56 PM Radha Mendez [facility]2024-03-25 14:28:08 Copied from [facility] #[id number]. Topic: Clinical - Medical Advice >Sep 21, 2023 2:27 PM Patient Advance Seal Delivery System Maintainer wrote: Paola Garg is a 68 year old female [facility] is requesting an update on the home health paperwork that was supposed be be signed off on 09/02/23. She states she has not received anything and that she would like to speak with Radha again. Please reach out to assist. Alfa LimaJoint Township District Memorial [id number] 14:41:35 I called and confirmed with Ally that Dr. De Jesus will sign off on the Home Health paperwork on Thursday09/02/23. She voiced thanks for the update. IFIED COURT INTERPRETER Radha Mendez [facility]2024-03-05 09:48:48 Copied from [facility] #[id number]. Topic: Clinical - Paperwork/Forms >> Sep 01, 2023 9:47 AM Patient Advance Seal Delivery System Maintainer wrote: Paola Garg is a 68 year old female [facility] orders from Dr. De Jesus - will doctor be signing orders, dos 08/20 Caller Contact: IFIED COURT INTERPRETER Christy [facility]2024-02-27 10:28:09 Images from the original note were not included. TRANSITIONAL CARE MANAGEMENT ASSESSMENT 08/25/2023 Paola Garg [id number] Paola Garg is a 68 year old Black or female was admitted on 08/19/[address] She was discharged on 08/24/23 with discharge disposition of HR- Routine Discharge. Admitting Physician: Ankit Salomon Discharge Diagnosis: Critical ischemia of extremity with history of revascularization of same extremity I70.229, Z98.890 Linked Episodes Type: Episode: Status: Noted: Resolved: Last update: Updated by: TRANSITION OF CARE TCM Active 08/25/2023 08/25/2023 10:23 AM Elizabeth Vale, JB Comments: TCM Fvh-bjcf-cw-face outreach documentation: Discharge Assessment Chart Assessed: 08/25/23 TCM Outreach Completed: 08/25/23 Do you have a few minutes to speak with me about how you are doing at home?: Yes (Pt reports doing "Okay".) Discharge Instructions Do you understand your at-home instructions?: Yes Medications Have you filled your prescriptions and do you have them in your home? : Yes Do you know how to take your medications?: Yes Can you provide me with the names or descriptions of any [id number] or supplements you are currently taking?: Yes (none) Supplies Did you receive applicable home medical supplies/equipment?: N/A Follow Up Appointment Has a follow up appointment been scheduled?: Yes (Vasc clinic and cardio appt already scheduled.) Do you have any questions about your follow up appointments?: No Are you able to get to your appointment? Who will be taking you?: Yes (reports having transportation or will use medical transport.) Home Health Assistance Has the home health nurse contacted you since you've been home?: No AUTO GLASS TECHNICIAN Interventions:: Contacted HH agency Discharge Location: Home Health location: [address], [place], [place] [address] (P) [phone] (F) [phone]. CM calling agency requesting referral status. Per Beatrice, fax was not received. Beatrice requesting referral to be send to fax: [phone] CM faxed referral to all 3 numbers provided. [phone]- CM returning call to Beatrice with [facility] regarding referral status as per pt has been approved. Beatrice confirmed pt was approved and will be reaching out to pt. CM advised d/c summary is now complete and will be faxing over to [facility]. D/C summary faxed. Survey - Recognition Is there anything you would like to share about your recent hospitalization, or anyone you would like to recognize?: No Do you have any suggestions for improvement?: No Do you have any other questions or concerns at this time?: No Future Appointments: Future Appointments Provider Department Dept Phone 09/14/2023 4:30 PM Charley Vega MD [facility] Vascular Surgery, [facility] [phone] 09/21/2023 1:30 PM Manav De La Torre MD [facility] [phone] ELIA Vale [facility] - [id number] 18:49:54 Problem: Discharge Planning Goal: Adequate for discharge 08/24/2023 1849 by Zenaida House, RN Outcome: Adequate for discharge 08/24/2023 1050 by Zenaida House, RN Outcome: Progressing as expected Goal: Effective communication 08/24/2023 184 by Zenaida House RN Outcome: Adequate for discharge 08/24/2023 1050 by Zenaida House RN Outcome: Progressing as expected Problem: Infection Risk Goal: Absence of infection 08/24/2023 184 by Zenaida House RN Outcome: Adequate for discharge 08/24/2023 1050 by Zenaida House RN Outcome: Progressing as expected Problem: Falls, Risk of Goal: Absence of falls 08/24/2023 184 by Zenaida House RN Outcome: Adequate for discharge 08/24/2023 1050 by Zenaida House RN Outcome: Progressing as expected Problem: Pain Goal: Control of pain at or below patient's documented comfort goal 08/24/2023 184 by Zenaida House RN Outcome: Adequate for discharge 08/24/2023 1050 by Zenaida House RN Outcome: Progressing as expected Goal: Reduction in pain sensation 08/24/20231848 by Zenaida House RN Outcome: Adequate for discharge 08/24/2023 1050 by Zenaida House RN Outcome: Progressing as expected ELIA House [facility]/[id number] 10:51:00 Problem: Discharge Planning Goal: Adequate for discharge Outcome: Progressing as expected Goal: Effective communication Outcome: Progressing as expected Problem: Infection Risk Goal: Absence of infection Outcome: Progressing as expected Problem: Falls, Risk of Goal: Absence of falls Outcome: Progressing as expected Problem: Pain Goal: Control of pain at or below patient's documented comfort goal Outcome: Progressing as expected Goal: Reduction in pain sensation Outcome: Progressing as expected [facility]IA [id number] 23:02:14 Problem: Discharge Planning Goal: Adequate for discharge Outcome: Progressing as expected Goal: Effective communication Outcome: Progressing as expected Problem: Infection Risk Goal: Absence of infection Outcome: Progressing as expected Problem: Falls, Risk of Goal: Absence of falls Outcome: Progressing as expected Problem: Pain Goal: Control of pain at or below patient's documented comfort goal Outcome: Progressing as expected Goal: Reduction in pain sensation Outcome: Progressing as expected [place] [id number] 11:44:41 Problem: Discharge Planning Goal: Adequate for discharge Outcome: Progressing as expected Goal: Effective communication Outcome: Progressing as expected Problem: Infection Risk Goal: Absence of infection Outcome: Progressing as expected Problem: Falls, Risk of Goal: Absence of falls Outcome: Progressing as expected Problem: Pain Goal: Control of pain at or below patient's documented comfort goal Outcome: Progressing as expected Goal: Reduction in pain sensation Outcome: Progressing as expected [facility]2024-02-25 03:11:41 Problem: Discharge Planning Goal: Adequate for discharge Outcome: Progressing as expected Goal: Effective communication Outcome: Progressing as expected Problem: Infection Risk Goal: Absence of infection Outcome: Progressing as expected Problem: Falls, Risk of Goal: Absence of falls Outcome: Progressing as expected Problem: Pain Goal: Control of pain at or below patient's documented comfort goal Outcome: Progressing as expected Goal: Reduction in pain sensation Outcome: Progressing as expected [place] [id number] 12:42:53 Problem: Discharge Planning Goal: Adequate for discharge Outcome: Progressing as expected Goal: Effective communication Outcome: Progressing as expected Problem: Infection Risk Goal: Absence of infection Outcome: Progressing as expected Problem: Falls, Risk of Goal: Absence of falls Outcome: Progressing as expected Problem: Pain Goal: Control of pain at or below patient's documented comfort goal Outcome: Progressing as expected Goal: Reduction in pain sensation Outcome: Progressing as expected [facility] Brittany Isbell [address]02-24 00:08:20 Problem: Discharge Planning Goal: Adequate for discharge Outcome: Progressing as expected Goal: Effective communication Outcome: Progressing as expected Problem: Infection Risk Goal: Absence of infection Outcome: Progressing as expected Problem: Falls, Risk of Goal: Absence of falls Outcome: Progressing as expected ELIA Xiao RNUTMB - [id number] 08:32:26 Patient Name: Paola Garg Full Operative Note Date of Procedure: 08/20/2023 Pre-Operative Diagnosis: Right leg critical limb ischemia Post-Operative Diagnosis: same as preop Procedures: 1) Right femoral to peroneal artery bypass with reversed GSV 2) Diagnostic angiogram of right leg, catheterization in right external iliac artery Surgeon(s): Dr. iNlsa De Jesus, Resident- Dr. Andrew Rdz Anesthesia: general Wound Classification: clean Antibiotic Prophylaxis: Ancef Specimens Sent: none Operative Procedure in Detail: After informed consent was obtained, patient was brought into the operating room and placed in supine position. The procedure was performed under general endotracheal anesthesia. The right leg and bilateral groins were prepped and draped in standard sterile fashion. IV ancef was administered preoperatively and time out was conducted with agreement from all team members. A transverse incision parallel to and one finger [...] posterior branch to the PT at the ankle. A longitudinal incision was performed on the medial [...] Vein distended well and was in good condition. A subsartorial tunnel was created from the popliteal space up to the groin using a Branch tunneler and umbilical tape placed in the [...] back bleeding from distal femoral artery also flushed. The vein graft was then marked and fed [...] closure in right groin and dermabond applied. [place] were used to close the skin in the medial thigh and leg incisions. Gauze and tegaderm were placed. Patient was extubated and was transferred to PACU in stable condition. Complications: none Drains / Tubes / Catheters: aparicio Hardware / Implants: none Blood / Fluid Losses: 200cc Post-Operative Condition: stable Practitioner Name: Nilsa De Jesus MD [facility]2024-02-22 01:08:46 Problem: Discharge Planning Goal: Adequate for discharge Outcome: Progressing as expected Goal: Effective communication Outcome: Progressing as expected Problem: Infection Risk Goal: Absence of infection Outcome: Progressing as expected Problem: Falls, Risk of Goal: Absence of falls Outcome: Progressing as expected [facility]2024-02-21 17:54:40 Patient transferred to [facility] for diagnosis of arterial leg occlusions Patient agrees to transfer/admit plan and verbalized understanding of plan of care, family aware of plan Patient awake alert, oriented, resp reg unlabored, skin w/d PIV patent, no s/s infiltration noted, No adverse reaction to medications given while in ED. Report given to [facility] EMS personnel ELIA Valenzuela [facility]/[id number] 17:54:22 Report to La Nena RN [facility]2024-02-21 16:31:16 [facility] called with updated ETA 45 min from now ELIA [facility] [id number] 13:06:00 Right foot is red and swollen for 3 weeks. Reports the pain is getting worse and wanted to get checked out. Denies fever chills or body aches. ELIA Aldrich [facility]/[id number] 12:57:00 Images from the original note were not included. [facility] Emergency Department Note Patient Name: Paola Garg Date of : 1955 68 year old female Treatment Room: [facility] ED RTA [facility] Primary Care Physician: Maryjane Maier Patient Escorted by: Family [5] Mode of Arrival: Personal means [1] EMS Treatment Prior to ED Arrival: [facility] treatment: None Travel and Exposure Screening: Symptoms Does patient have any of these symptoms?: (not recorded) Exposure Screening Has patient had contact with someone with a communicable disease in the last month?: (not recorded) Diseases exposed to:: (not recorded) Is Patient ?: (not recorded) Exposure Date: (not recorded) Chief Complaint: Chief Complaint Patient presents with Cellulitis Right foot History of Present Illness: Paola Garg emergency room with right foot pain [...] without assistance and has been using a wheelchair. Past Medical History/Immunizations: Past Medical History: Diagnosis Date Hyperlipidemia Hypertension Tetanus received in last 5 years: Unknown Childhood immunizations: Up-to-date Allergies: No Known Allergies Past Social History: Tobacco Use Some Days; Types: Cigarettes Smokeless Tobacco: Never used smokeless tobacco. Comments: 2 Ciggs a week Past Surgical History: History reviewed. No pertinent surgical history. Review of Systems: Review of Systems Constitutional: Negative for chills and fever. HENT: Negative for congestion, rhinorrhea and sore throat. Eyes: Negative for pain and visual disturbance. Respiratory: Negative for cough and shortness of breath. Cardiovascular: Negative for chest pain and leg swelling. Gastrointestinal: Negative for abdominal distention, abdominal pain, diarrhea, nausea and vomiting. Genitourinary: Negative for dysuria, vaginal bleeding and difficulty urinating. Musculoskeletal: Positive for gait problem and joint swelling. Negative for back pain. Skin: Negative for rash and wound. Neurological: Negative for seizures, weakness and headaches. Psychiatric/Behavioral: Negative for confusion and self-injury. Endocrine: Negative for polydipsia and polyphagia. Physical Exam: ED Triage Vitals [08/19/23 1306] Weight 72.6 kg (160 lb) Actual or estimated Height 1.676 m (5' 6") BP 113/82 Pulse 105 Resp 20 Temp 36.7 ?C (98.1 ?F) Temp src SpO2 100 % Measured on Physical Exam Vitals and nursing note reviewed. Constitutional: Appearance: Normal appearance. She is well-developed. She is not ill-appearing or toxic-appearing. HENT: Head: Normocephalic and atraumatic. Right Ear: External ear normal. Left Ear: External ear normal. Nose: Nose normal. Mouth/Throat: Mouth: Mucous membranes are moist. Pharynx: Oropharynx is clear. Eyes: General: Right eye: No discharge. Left eye: No discharge. Conjunctiva/sclera: Conjunctivae normal. Pupils: Pupils are equal, round, and reactive to light. Cardiovascular: Rate and Rhythm: Normal rate and regular rhythm. Pulses: Normal pulses. Heart sounds: Normal heart sounds. No murmur heard. Pulmonary: Effort: Pulmonary effort is normal. No respiratory distress. Breath sounds: Normal breath sounds. Abdominal: General: Abdomen is flat. Bowel sounds are normal. There is no distension. Palpations: Abdomen is soft. Musculoskeletal: General: No deformity. Normal range of motion. Cervical back: Normal range of motion. Right lower leg: Edema present. Right foot: Swelling and tenderness present. Abnormal pulse. Comments: No pulse noted with Dopplers Lymphadenopathy: Cervical: No cervical adenopathy. Skin: General: Skin is warm and dry. Capillary Refill: Capillary refill takes less than 2 seconds. Neurological: Mental Status: She is alert and oriented to person, place, and time. Mental status is at baseline. Cranial Nerves: No cranial nerve deficit. Sensory: No sensory deficit. Motor: No weakness. Psychiatric: Mood and Affect: Mood normal. Behavior: Behavior normal. Thought Content: Thought content normal. Judgment: Judgment normal. Radiology: XR FOOT <3 VW RIGHT Final Result HISTORY: Pain and swelling. FINDINGS: AP and lateral views of the right foot showed vertical and oblique radiolucent lines through the shaft portion of the terminal phalanx of the great toe, suspicious for hairline fractures. Diffuse osteopenia, degenerative arthritis of the intertarsal joints and first tarsometatarsal joint noted. A metallic anchor is seen in the calcaneum, probably utilized for Achilles tendon repair. A prominent 9 mm heel spur noted. Deformity in the distal end of the proximal and middle phalanges of the fifth digit noted, likely secondary to remote surgery. CONCLUSIONS: Suspect nondisplaced hairline fractures in terminal phalanx of right great toe. Please correlate this finding with clinical history and physical examination. Lab Results: Lab Results CBC WITH DIFF - Abnormal Result Value Ref Range WBC 5.57 4.30 - 11.10 10*3/?L RBC 4.42 3.93 - 5.25 10*6/?L HGB 12.8 11.6 - 15.0 g/dL HCT 36.9 35.7 - 45.2 % MCV 83.5 80.6 - 95.5 fL MCH 29.0 25.9 - 32.8 pg MCHC 34.7 31.6 - 35.1 g/dL RDW-SD 43.8 39.0 - 49.9 fL RDW-CV 14.5 12.0 - 15.5 % PLT 423 (*) 166 - 358 10*3/?L MPV 8.7 (*) 9.5 - 12.9 fL NRBC/100 WBC 0.0 0.0 - 10.0 /100 WBCs NRBC x103<0.01 10*3/?L GRAN MAT (NEUT) % 55.5 % IMM GRAN % 0.40 % LYMPH % 28.0 % MONO % 12.0 % EOS % 3.2 % BASO % 0.9 % GRAN MAT x103(ANC) 3.09 1.88 - 7.09 10*3/uL IMM GRAN x103<0.03 0.00 - 0.06 10*3/uL LYMPH x1031.56 1.32 - 3.29 10*3/uL MONO x1030.67 0.33 - 0.92 10*3/uL EOS x1030.18 0.03 - 0.39 10*3/uL BASO x1030.05 0.01 - 0.07 10*3/uL COMP. METABOLIC PANEL (14495) - Abnormal NA 122 (*) 135 - 145 mmol/L K 4.0 3.5 - 5.0 mmol/L CL 92 (*) 98 - 108 mmol/L CO2 TOTAL 23 23 - 31 mmol/L AGAP 7 2 - 16 BUN 4 (*) 7 - 23 mg/dL GLUCOSE 80 70 - 110 mg/dL CREATININE 0.54 0.50 - 1.04 mg/dL TOTAL BILI 0.7 0.1 - 1.1 mg/dL CALCIUM 9.3 8.6 - 10.6 mg/dL T PROTEIN 7.7 6.3 - 8.2 g/dL ALBUMIN 3.7 3.5 - 5.0 g/dL ALK PHOS 101 34 - 122 U/L ALTv 13 5 - 35 U/L AST(SGOT) 29 13 - 40 U/L eGFR 99.8 mL/min/1.73m2 LACTIC ACID WHOLE BLOOD - Normal LACTIC ACID 1.82 0.50 - 2.20 mmol/L PROTHROMBIN TIME / INR ACTIVATED PARTIAL THRMPLAS HOMER EKG: If EKG completed, see Procedure Note. Orders and Treatments: Orders Placed This Encounter Procedures XR FOOT <3 VW RIGHT CBC WITH DIFF COMP. METABOLIC PANEL (48981) Lactic Acid Whole Blood Lactic Acid Whole Blood Prothrombin Time (PT) / INR aPTT Orders Placed This Encounter Medications heparin 1000 unit/mL injection Soln 5,000 Units heparin (1,000 unit/mL, 10 mL vial) heparin 25,000 Units/250 mL (Premixed Bag) in 0.45 % NS First Provider Eval: ED Events Date/Time Event User Comments 08/19/23 1326 Medical Screening Begins PAUL SMITH -- 08/19/23 1326 First Provider Evaluation PAUL SMITH -- ED COURSE ED Course as of 08/19/23 1618 ThuAug 19, [address] Salomon to transfer to [facility] [] ED Course User Index [KL] Paul Smith FNP Diagnosis/Impression as of 08/19/23 1618 Foot swelling Critical limb ischemia of right lower extremity Procedures: Procedures MDM: Medical Decision Making [facility] emergency room with right foot pain and [...] without assistance and has been using a wheelchair. Right foot is swollen and mottled. No palpable pulse and no signals noted with Dopplers. Labs and arterial ultrasound ordered. No leukocytosis, normal lactic. Doppler shows occluded DP, anterior tibial, superficial femorla, and popliteal artery. Spoke with Aime at [facility] and accepted. Heparin drip ordered. Problems Addressed: Critical limb ischemia of right lower extremity: acute illness or injury Foot swelling: acute illness or injury Amount and/or Complexity of Data Reviewed Labs: ordered. Radiology: ordered. Risk Prescription drug management. Flowsheet Documentation: Scoring Tools: No data recorded Disposition/Condition: ED Disposition ED Disposition Transfer - [facility] ED to IP/Obs Condition -- Comment -- Discharge Medications: Patient's Medications START taking these medications No medications on file CONTINUE taking these medications which have NOT CHANGED AMLODIPINE 5 MG TABLET TAKE 1 TABLET BY MOUTH EVERY DAY ATORVASTATIN 20 MG TABLET Take 1 tablet by mouth at bedtime. CARVEDILOL 12.5 MG TABLET TAKE 1 TABLET BY MOUTH TWICE A DAY WITH MEALS FAMOTIDINE 20 MG TABLET TAKE 1 TABLET BY MOUTH EVERY 12 HOURS FOR 10 DAYS HYDROCHLOROTHIAZIDE 12.5 MG CAPSULE TAKE 1 CAPSULE BY MOUTH EVERY DAY START taking Modified Medications as Prescribed No medications on file STOP taking these medications No medications on file Follow-up: Electronically signed by: Paul Smith FNP 08/19/23 1618 Paul Smith FNP 08/19/[address] INTERPRETER Associated attestation - Andrew Thorpe MD - 08/19/2023 11:[address] INTERPRETER Addendum I was personally available for consultation in the Emergency Department during this encounter and patient evaluation by Estefania [facility]
--- NOTE | 2024-03-03 14:31 | RAD REPORT ---
EXAM DESCRIPTION: RADChest Single View03/03/2024 2:16 pm CLINICAL HISTORY: COUGH COMPARISON: Chest Pa And Lat (2 Views) dated 12/18/2023; Chest Single View dated 12/16/2023; Chest Pa And Lat (2 Views) dated 07/29/2023; Chest Pa And Lat (2 Views) dated 08/06/2022 TECHNIQUE: Portable AP view of the chest. FINDINGS: The lungs are clear. No pneumothorax or effusion. The cardiomediastinal contours are unre markable. IMPRESSION: No acute cardiopulmonary process.
[2024-03-03 15:09] LABS: Absolute Basophils 0.1 K/uL (0-0.5); Absolute Eosinophils 0.1 K/uL (0-0.5); Absolute Lymphocytes (CBC) 1.6 K/uL (0.7-4.9); Absolute Monocytes 0.6 K/uL (0.1-1.3); Absolute Neutrophil 2.9 K/uL (1.8-8.0); Basophils % 1.9 % (0-1.3); Eosinophils % 1.3 % (0-4.4); Hematocrit 41.4 % (36.0-45.0); Hemoglobin 13.1 g/dL (12.0-15.0); Lymphocytes % 29.9 % (15.3-44.8); MCH 26.9 pg (27.0-35.0); MCHC 31.7 g/dL (32.0-36.0); MCV 84.7 fL (80-100); Neutrophils % 54.9 % (41.7-73.7); Platelets 342 thou/uL (152-406); RBC Red Blood Cell Count 4.89 M/uL (3.86-4.86); Red Cell Distribution Width 15.1 % (12.1-15.2)
[2024-03-03 15:10] LABS: PT Prothrombin Time 12.8 SECONDS (9.4-12.5); Protime INR 1.15
[2024-03-03 15:10] LABS: Specific Gravity < 1.005 (1.005-1.030); Sqamous Epithelial <5 /HPF (None Seen); Urine Bacteria None Seen /HPF (<20); Urine Bilirubin NEGATIVE (Negative); Urine Blood Negative (Negative); Urine Clarity Turbid (Clear); Urine Color Colorless (Yellow); Urine Culture Reflex Order NOT NEEDED; Urine Glucose NEGATIVE (Negative); Urine Ketones NEGATIVE (Negative); Urine Microscopic Reflex YN ORDER UMIC; Urine Mucus Slight /HPF (None Seen); Urine Nitrite NEGATIVE (Negative); Urine Protein NEGATIVE (Negative); Urine RBC <5 /HPF (None Seen); Urine Urobilinogen Normal (Normal); Urine WBC None Seen /HPF (<5); Urine pH 5.5 (5.0-7.0)
[2024-03-03 15:29] LABS: SARS-CoV-2 Antigen CONTROL BLUE LINE VIS/BG OK; SARS-CoV-2 Antigen Rapid Res Negative (Negative)
[2024-03-03 15:33] LABS: Albumin 3.1 g/dL (3.4-5.0); Albumin/Globulin Ratio 0.8 (1.1-1.8); Anion Gap 11.7 mEq/L (5.0-15.0); Bilirubin Direct 0.2 mg/dL (0-0.2); Bilirubin Indirect, Calculated 0.3 mg/dL (0.2-0.8); Bilirubin Total 0.5 mg/dL (0.2-1.0); Globulin 4.1 g/dL (2.3-3.5); Potassium 3.7 mEq/L (3.5-5.1); Protein, Total 7.2 g/dL (6.4-8.2); T3 Free 2.33 pg/mL (2.18-3.98); Thyroid Stimulating Hormone 0.632 uIU/mL (0.358-3.740); Troponin High Sensitivity 5.9 pg/mL (<58.9)
--- NOTE | 2024-03-03 17:52 | ER ---
Nurse's Notes [facility] Name: Paola Ji Age: 68 yrs Sex: Female : 1955 Arrival Date: 03/03/2024 Time: 13:14 Bed 19 Private MD: Diagnosis: Hypo-osmolality and hyponatremia Presentation: 03/03 13:26 Chief complaint: Patient states: Pt states abnormal thyroid labs per PCP and was told dd2 to come to the ER. Coronavirus screen: At this time, the client does not indicate any symptoms associated with coronavirus-19. Ebola Screen: No symptoms or risks identified at this time. Initial Sepsis Screen: Does the patient meet any 2 criteria? No. Patient's initial sepsis screen is negative. Does the patient have a suspected source of infection? No. Patient's initial sepsis screen is negative. Risk Assessment: Do you want to hurt yourself or someone else? Patient reports no desire to harm self or others. Onset of symptoms is unknown. 13:26 Method Of Arrival: Ambulatory dd2 13:26 Acuity: JAIMEE 3 dd2 Triage Assessment: 13:29 General: Appears in no apparent distress. Behavior is calm, cooperative, appropriate dd2 for age. Pain: Denies pain. Historical: - Allergies: 13:29 No Known Allergies; dd2 - PMHx: 13:29 CHF; Hypercholesterolemia; Hypertension; Hypothyroidism; dd2 - PSHx: 13:29 R leg stent x 2; dd2 - Immunization history:: Adult Immunizations unknown. - Infectious Disease History:: Denies. - Social history:: Smoking status: Patient reports the use of cigarette tobacco products, smokes one-half pack cigarettes per day. Screenin:00 [facility] ED Fall Risk Assessment (Adult) History of falling in the last 3 months, tl4 including since admission No falls in past 3 months (0 pts) Confusion or Disorientation No (0 pts) Intoxicated or Sedated No (0 pts) Impaired Gait No (0 pts) Mobility Assist Device Used No (0 pt) Altered Elimination No (0 pt) Score/Fall Risk Level 0 - 2 = Low Risk Oriented to surroundings, Maintained a safe environment, Educated pt \T\ family on fall prevention, incl call for assistance when getting out of bed, Assessed \T\ reinforced patient's understanding of fall precautions. Abuse screen: Denies threats or abuse. Denies injuries from another. Nutritional screening: No deficits noted. Tuberculosis screening: No symptoms or risk factors identified. 15:45 [facility] ED Fall Risk Assessment (Adult) Score/Fall Risk Level 0 - 2 = Low Risk tl4 Provided non-skid footwear. Assessment: 14:59 General: Appears in no apparent distress. Behavior is calm, cooperative. Pain: Denies tl4 pain. Neuro: Level of Consciousness is awake, alert, obeys commands, Oriented to person, place, time, situation, Moves all extremities. Full function Speech is normal, Facial symmetry appears normal. Cardiovascular: Capillary refill < 3 seconds Patient's skin is warm and dry. Respiratory: Airway is patent Respiratory effort is even, unlabored, Respiratory pattern is regular, symmetrical, Breath sounds are clear bilaterally. GI: No signs and/or symptoms were reported involving the gastrointestinal system. : No signs and/or symptoms were reported regarding the genitourinary system. EENT: No signs and/or symptoms were reported regarding the EENT system. Derm: No signs and/or symptoms reported regarding the dermatologic system. Musculoskeletal: No signs and/or symptoms reported regarding the musculoskeletal system. 15:44 Reassessment: Patient and/or family updated on plan of care and expected duration. Pain tl4 level reassessed. Patient is alert, oriented x 3, equal unlabored respirations, skin warm/dry/pink. Pt denies any needs, call caceres at bedside, will continue to monitor. 19:00 Reassessment: No changes from previously documented assessment. Patient and/or family vc1 updated on plan of care and expected duration. Pain level reassessed. Patient is alert, oriented x 3, equal unlabored respirations, skin warm/dry/pink. General: Appears in no apparent distress. comfortable, Behavior is calm, cooperative, appropriate for age. Pain: Denies pain. Neuro: Level of Consciousness is awake, alert, obeys commands, Oriented to person, place, time, situation, Appropriate for age. Cardiovascular: Heart tones S1 S2 present Capillary refill < 3 seconds Patient's skin is warm and dry. Respiratory: Airway is patent Respiratory effort is even, unlabored, Respiratory pattern is regular, symmetrical, Breath sounds are clear bilaterally. GI: Abdomen is round non-distended, Bowel sounds present X 4 quads. : No signs and/or symptoms were reported regarding the genitourinary system. EENT: No deficits noted. No signs and/or symptoms were reported regarding the EENT system. Derm: No signs and/or symptoms reported regarding the dermatologic system. Skin is intact, is healthy with good turgor, Skin is dry, Skin is normal, Skin temperature is warm. 20:18 Reassessment: Patient appears in no apparent distress at this time. No changes from vc1 previously documented assessment. Patient and/or family updated on plan of care and expected duration. Pain level reassessed. Patient is alert, oriented x 3, equal unlabored respirations, skin warm/dry/pink. Vital Signs: 13:26 BP 142 / 83; Pulse 72; Resp 15; Temp 97.4; Pulse Ox 100% ; Weight 79.38 kg; Height 5 dd2 ft. 6 in. ; 15:00 BP 138 / 85; Pulse 66; Resp 18; Pulse Ox 100% on R/A; tl4 15:33 BP 137 / 79; Pulse 74; Resp 16; Pulse Ox 99% on R/A; tl4 16:00 BP 138 / 68; Pulse 68; Resp 16; Pulse Ox 99% on R/A; tl4 20:00 BP 158 / 91; Pulse 78; Resp 16; Pulse Ox 100% ; vc1 13:26 Body Mass Index 28.25 (79.38 kg, 167.64 cm) dd2 Vitals: 15:00 Cardiac Rhythm Assessment Regular Sinus rhythm. tl4 ED Course: 13:19 Patient arrived in ED. im 13:28 James Deutsch PA is PHCP. cp 13:28 Gil Shanks DO is Attending Physician. cp 13:29 Triage completed. dd2 13:29 Arm band placed on right wrist. Patient placed in an exam room, on a stretcher, on dd2 pulse oximetry. 14:18 XRAY Chest (1 view) In Process Unspecified. EDMS 14:58 Influenza Screen (a \T\ B) Sent. tl4 14:58 SARS RAPID Sent. tl4 14:58 T4 Free Sent. tl4 14:58 T3 Free Sent. tl4 14:58 TSH Sent. tl4 14:58 Urinalysis w/ reflexes Sent. tl4 14:58 Basic Metabolic Panel Sent. tl4 14:58 CBC with Diff Sent. tl4 14:58 LFT's Sent. tl4 14:59 Magnesium Sent. tl4 14:59 NT PRO-BNP Sent. tl4 14:59 PT-INR Sent. tl4 14:59 Troponin HS Sent. tl4 15:01 Patient has correct armband on for positive identification. Placed in gown. Bed in low tl4 position. Call light in reach. Side rails up X 1. Provided Education on: call caceres, ed process. Client placed on continuous cardiac and pulse oximetry monitoring. NIBP monitoring applied. phototypesetting equipment monitor on. Door closed. Noise minimized. Lights dimmed. Moved to private room. Warm blanket given. 15:01 No provider procedures requiring assistance completed. Initial lab(s) drawn, by me, tl4 sent to lab. Urine collected: clean catch specimen, COVID swab sent to lab. Flu and/or RSV swab sent to lab. Inserted saline lock: 22 gauge in right antecubital area, using aseptic technique. Blood collected. Flushed with 10 mL NS. 15:18 Scooter Sanchez, RN is Primary Nurse. tl4 15:44 Warm blanket given. tl4 16:29 EKG done, by ED staff, reviewed by James LAYTON. tl4 17:51 Leopoldo Gutierrez MD is Hospitalizing Provider. cp 18:10 CM met with patient at bedside, in the ED exam room. Patient identified by name and ane .Demographic sheet confirmed. She explained she had a PCP at [facility], but was told that PCP no longer works there, so she is unsure who her PCP is now. No MPOA at this time, wishes to think about who to appoint. Ms Keyes states she lives alone in a single story home. She reports that prior to admission, she performs ADLs independently. She states she uses a cane and occasionally a rollator to ambulate. She reports she had a fall about 2 weeks prior but was not injured. No HH, home oxygen or other medical services at this time. Her preferred discharge plan is to return home and states her daughter in law, or son can transport her home when she is released. CM team will continue to follow and coordinate care. 19:07 CT Head C Spine In Process Unspecified. EDMS 19:09 Urine Osmolality Sent. tl4 20:19 Patient admitted, IV remains in place. vc1 Administered Medications: 18:09 Drug: NS 0.9% IV 1000 ml IV at 75 ml/hr continuous Route: IV; Rate: 75 ml/hr; Site: tl4 left antecubital; Delivery: Primary tubing; 20:20 Follow up: IV Status: Infusion continued upon admission; IV Intake: 150ml vc1 Medication: 15:00 VIS not applicable for this client. tl4 Intake: 20:20 IV: 150ml; Total: 150ml. vc1 Outcome: 17:51 Decision to Hospitalize by Provider. cp 20:19 Admitted to Med/surg accompanied by tech, via wheelchair, room 212, vc1 20:19 Condition: good 20:52 Patient left the ED. vc1 Signatures: Dispatcher [employer] EDMS James Deutsch PA PA cp Calcote, Vanessa RN RN vc1 Sharona Welsh Toni RN JB tl4 Janice Juarez RN RN ane DAVIS, DIANA RN RN dd2 Corrections: (The following items were deleted from the chart) 18:44 18:10 CM met with patient at bedside, in the ED exam room. Patient identified by name yordan and .Demographic sheet confirmed. She explained she had a PCP at [facility], but was told that PCP no longer works there, so she is unsure who her PCP is now. No MPOA at this time, wishes to think about who to appoint. Ms Keyes states she lives alone in a single story home. She reports that prior to admission, she performs ADLs independently. She states she uses a cane and occasionally a rollator to ambulate. She reports she had a fall about 2 weeks prior but was not injured. No HH, home oxygen or other medical services at this time. Her preferred discharge plan is to return home and states her daughter in law, or son can transport her home when she is released. CM team will continue to follow and coordinate care. yordan
--- NOTE | 2024-03-03 17:52 | EDPHYS ---
Physician Documentation [facility] Name: Paola Ji Age: 68 yrs Sex: Female : 1955 Arrival Date: 03/03/2024 Time: 13:14 Bed 19 Private MD: ED Physician Gil Shanks HPI: 03/03 13:50 This 68 yrs old Black Female presents to ER via Ambulatory with complaints of Abnormal cp Lab Results. 13:50 dizziness, general weakness, near-syncope. cp 13:50 Patient reports she was referred to ED for evaluation of abnormal labs: thyroid. cp Patient reports hx of low sodium and reports she feels like sodium is low and she has been off medications for about 1-2 weeks and recently restarted meds today. Historical: - Allergies: 13:29 No Known Allergies; dd2 - PMHx: 13:29 CHF; Hypercholesterolemia; Hypertension; Hypothyroidism; dd2 - PSHx: 13:29 R leg stent x 2; dd2 - Immunization history:: Adult Immunizations unknown. - Infectious Disease History:: Denies. - Social history:: Smoking status: Patient reports the use of cigarette tobacco products, smokes one-half pack cigarettes per day. ROS: 13:55 Constitutional: Negative for body aches, chills, fever, poor PO intake, cp 13:55 Eyes: Negative for injury, pain, redness, and discharge, cp 13:55 ENT: Negative for drainage from ear(s), ear pain, sore throat, difficulty swallowing, difficulty handling secretions, 13:55 Cardiovascular: Negative for chest pain, edema, palpitations, 13:55 Respiratory: Positive for cough, shortness of breath, Negative for wheezing, 13:55 Abdomen/GI: Negative for abdominal pain, vomiting, diarrhea, constipation, 13:55 Neuro: Positive for dizziness, near syncope, weakness, Negative for altered mental status, 13:55 All other systems are negative, Exam: 14:00 Constitutional: The patient appears in no acute distress, alert, awake, cp non-diaphoretic, non-toxic, well developed, well nourished, 14:00 Head/Face: Normocephalic, atraumatic. cp 14:00 Eyes: Periorbital structures: appear normal, Pupils: equal, round, and reactive to light and accomodation, Extraocular movements: intact throughout, Conjunctiva: normal, no exudate, no injection, Sclera: no appreciated abnormality, Lids and lashes: appear normal, bilaterally, 14:00 ENT: External ear(s): are unremarkable, Nose: is normal, Mouth: Lips: moist, Oral mucosa: pink and intact, moist, Posterior pharynx: is normal, airway is patent, no erythema, no exudate, 14:00 Chest/axilla: Inspection: normal, 14:00 Cardiovascular: Rate: normal, Rhythm: regular, Edema: is not appreciated, JVD: is not appreciated, 14:00 Respiratory: the patient does not display signs of respiratory distress, Respirations: normal, no use of accessory muscles, no retractions, labored breathing, is not present, Breath sounds: are clear throughout, no decreased breath sounds, no stridor, no wheezing, 14:00 Abdomen/GI: Inspection: abdomen appears normal, Palpation: abdomen is soft and non-tender, in all quadrants, 14:00 Back: pain, is absent, ROM is normal, 14:00 Neuro: Orientation: to person, place \T\ time. Mentation: able to follow commands, Motor: moves all fours, no focal deficits, Sensation: is normal, 15:41 ECG was reviewed by the Attending Physician. Vital Signs: 13:26 BP 142 / 83; Pulse 72; Resp 15; Temp 97.4; Pulse Ox 100% ; Weight 79.38 kg; Height 5 dd2 ft. 6 in. ; 15:00 BP 138 / 85; Pulse 66; Resp 18; Pulse Ox 100% on R/A; tl4 15:33 BP 137 / 79; Pulse 74; Resp 16; Pulse Ox 99% on R/A; tl4 16:00 BP 138 / 68; Pulse 68; Resp 16; Pulse Ox 99% on R/A; tl4 20:00 BP 158 / 91; Pulse 78; Resp 16; Pulse Ox 100% ; vc1 13:26 Body Mass Index 28.25 (79.38 kg, 167.64 cm) dd2 MDM: 13:39 Patient medically screened. cp 18:15 Data reviewed: vital signs, nurses notes, lab test result(s), EKG, radiologic studies, cp plain films, and as a result, I will admit patient. 18:15 Differential Diagnosis electrolyte abnormality, cardiac arrhythmia, sepsis, uti. cp Management of patient was discussed with the following: Hospitalist: DR Gutierrez will admit after discussion. Independent interpretation of the following test(s) in the Emergency Department EKG: See my EKG interpretation above. Care significantly affected by the following chronic conditions: Hypertension, Congestive Heart Failure. Counseling: I had a detailed discussion with the patient and/or guardian regarding the historical points, exam findings, and any diagnostic results supporting the discharge/admit diagnosis, lab results, radiology results. 03/03 13:47 Order name: Basic Metabolic Panel; Complete Time: 16:47 cp / 16:47 Interpretation: Normal except: NA 121; CL 89; BUN 5. cp 03/03 13:47 Order name: CBC with Diff; Complete Time: 16:47 cp 03/03 16:47 Interpretation: Normal except: RBC 4.89; MCH 26.9; MCHC 31.7; MPV 7.0; BASO% 1.9. cp 03/03 13:47 Order name: LFT's; Complete Time: 16:47 cp 03/03 13:47 Order name: Magnesium; Complete Time: 16:47 cp 03/03 13:47 Order name: NT PRO-BNP; Complete Time: 16:47 cp 03/03 13:47 Order name: PT-INR; Complete Time: 16:47 cp 03/03 13:47 Order name: Troponin HS; Complete Time: 16:47 cp / 13:47 Order name: Urinalysis w/ reflexes; Complete Time: 16:47 cp 03/03 13:47 Order name: TSH; Complete Time: 16:47 cp 03/03 13:47 Order name: T3 Free; Complete Time: 16:47 cp 03/03 13:47 Order name: T4 Free; Complete Time: 16:47 cp 03/03 14:00 Order name: SARS RAPID; Complete Time: 16:47 cp 03/03 14:00 Order name: Influenza Screen (a \T\ B) cp 03/03 18:26 Order name: Urine Osmolality cp 03/03 18:59 Order name: Urinalysis w/ reflexes EDMS 03/03 18:59 Order name: CBC with Automated Diff EDMS 03/03 18:59 Order name: CBC with Automated Diff EDMS 03/03 18:59 Order name: Comprehensive Metabolic Panel EDMS 03/03 18:59 Order name: Comprehensive Metabolic Panel EDTN 03/03 18:59 Order name: Lipid Profile EDTN 03/03 18:59 Order name: Lipid Profile EDTN 03/03 14:00 Order name: XRAY Chest (1 view); Complete Time: 14:37 03/03 14:37 Interpretation: Report review. 03/03 18:32 Order name: CT Head C Spine; Complete Time: 19:47 03/03 19:48 Interpretation: Reviewed report. 03/03 13:47 Order name: EKG; Complete Time: 13:47 03/03 13:47 Order name: Cardiac monitoring; Complete Time: 14:34 03/03 13:47 Order name: EKG - Nurse/Tech; Complete Time: 16:29 03/03 13:47 Order name: IV Saline Lock; Complete Time: 14:58 03/03 13:47 Order name: Labs collected and sent; Complete Time: 14:58 03/03 13:47 Order name: O2 Per Protocol; Complete Time: 14:34 03/03 13:47 Order name: O2 Sat Monitoring; Complete Time: 14:34 cp EC:41 Rate is 71 beats/min. Rhythm is regular. PA interval is prolonged at 218 msec. QRS cp interval is normal. QT interval is normal. T waves are Inverted in leads III, aVR. Interpreted by me. Reviewed by me. Administered Medications: 18:09 Drug: NS 0.9% IV 1000 ml IV at 75 ml/hr continuous Route: IV; Rate: 75 ml/hr; Site: tl4 left antecubital; Delivery: Primary tubing; 20:20 Follow up: IV Status: Infusion continued upon admission; IV Intake: 150ml vc1 Disposition: 16:15 I was immediately available on-site in the Emergency Department for consultation in the ms3 care of the patient. Disposition Summary: 03/03/24 17:51 Hospitalization Ordered Notes: Hospitalization Status: Observation cp Provider: Leopoldo Gutierrez cp Location: Telemetry/MedSurg (observation) cp Condition: Stable cp Problem: an acute exacerbation cp Symptoms: have improved cp Bed/Room Type: Standard Room Assignment: [facility](03/03/24 19:24) iw Diagnosis - Hypo-osmolality and hyponatremia cp Forms: - Medication Reconciliation Form cp - SBAR form cp - Leadership Thank You Letter cp Signatures: Dispatcher [employer] EDMS Pattie Louie, RN RN iw James Deutsch PA PA cp Gil Shanks, DO ms3 Scooter Sancehz, RN RN tl4 PHYLICIA HERNANDEZ RN RN dd2 Carly Monroe RN vc1 Corrections: (The following items were deleted from the chart) 13:48 13:47 BASIC METABOLIC PANEL+C.LAB.BRZ ordered. EDMS EDMS 13:48 13:47 CBC+H.LAB.BRZ ordered. EDMS EDMS 13:48 13:47 HEPATIC FUNCTION+C.LAB.BRZ ordered. EDMS EDMS 13:48 13:47 MAGNESIUM+C.LAB.BRZ ordered. EDMS EDMS 13:48 13:47 PROBNP+C.LAB.BRZ ordered. EDMS EDMS 13:48 13:47 PROTIME (+INR)+COAG.LAB.BRZ ordered. EDMS EDMS 13:48 13:47 Troponin High Sensitivity+C.LAB.BRZ ordered. EDMS EDMS 13:48 13:47 Urinalysis+U.LAB.BRZ ordered. EDMS EDMS 13:48 13:47 THYROID STIMULAT HORMONE+C.LAB.BRZ ordered. EDMS EDMS 13:48 13:47 T3 FREE+C.LAB.BRZ ordered. EDMS EDMS 13:48 13:47 T4 FREE+C.LAB.BRZ ordered. EDMS EDMS 18:32 18:32 Head C Spine MPR Wo Con+CT.RAD.BRZ ordered. EDMS EDMS 19:24 17:51 cp iw
[2024-03-03] MEDS ORDERED: NA CHLORIDE 0.9% 1,000 ML ONE (17:58)
--- NOTE | 2024-03-03 18:52 | P.HP ---
Certification for Inpatient With expected LOS: >2 Midnights Practitioner: I am a practitioner with admitting privileges, knowledge of patient current condition, hospital course, and medical plan of care. Services: Services provided to patient in accordance with Admission requirements found in Title 42 Section 412.3 of the Code of Federal Regulations Patient History Date of Service: 03/03/24 Reason for admission: weakness History of Present Illness: 68-year-old female with history of congestive heart failure, hyperlipidemia, hypertension, hypothyroidism, smoking, alcohol use presents with complaints of 2-week history of generalized weakness. She reports having falls as well as low sodium. She reports that she checked her blood work a few days ago with her primary care and was told to go to the emergency room for low sodium. She does report having a previous prescription for sodium chloride. She does consume 424 ounce beers almost daily. She denies any chest pain. She does report some s hortness of breath and cough. Denies fevers. She did states she did have a fall on her arm which has improved as well as previous falls Allergies kiwi Adverse Reaction (Verified 07/29/23 16:28) Nausea/Vomiting Home Medications: Benzonatate [Tessalon Perle*] 100 mg PO TID PRN #60 cap 08/01/23 Apixaban [Eliquis] 5 mg PO BID 12/16/23 Aspirin Tab [Adia Aspirin*] 325 mg PO DAILY 12/16/23 Atorvastatin Calcium [Lipitor] 80 mg PO BEDTIME 12/16/23 Gabapentin [Neurontin*] 200 mg PO TID 12/16/23 Albuterol Inhaler [Ventolin Inhaler*] 60 puff IH Q4H #1 inhaler 12/19/23 Amlodipine [Norvasc*] 10 mg PO DAILY 60 Days #60 tab 12/19/23 Apixaban [Eliquis] 5 mg PO BID 12/19/23 Benzonatate [Tessalon Perle] 200 mg PO TID #42 cap 12/19/23 Levothyroxine [Synthroid*] 0.125 mg PO DAILYAC #30 tab 12/19/23 carvediloL [Coreg*] 12.5 mg PO BID 30 Days #60 tab 12/19/23 - Past Medical/Surgical History Diabetic: No -: HTN -: Hyperlipidemia -: Hyperthyroidism -: CHFunknown EF -: Blood Clot in bilateral legs that were dx 2 months -: Balloon placed in right leg for blood clots 2 months ago Psychosocial/ Personal History: Lives at home with family - Social History Alcohol use: Yes CD- Drugs: No Caffeine use: No Review of Systems 10-point ROS is otherwise unremarkable General: Weakness Respiratory: Cough Physical Examination - Physical Exam General: Alert, Oriented x3 HEENT: Atraumatic, Normocephalic Neck: Supple Respiratory: Clear to auscultation bilaterally, Normal air movement Cardiovascular: Regular rate/rhythm, Normal S1 S2 Gastrointestinal: Soft and benign, Non-distended Musculoskeletal: No clubbing, No swelling Integumentary: No rashes Neurological: Normal speech - Studies Laboratory Data (last 24 hrs) 03/03/24 03/03/24 03/03/24 14:53 14:53 14:53 WBC 5.20 Hgb 13.1 Hct 41.4 Plt Count 342 PT 12.8 H INR 1.15 Sodium 121 L Potassium 3.7 BUN 5 L Creatinine 0.59 Glucose 88 Magnesium 2.0 Total Bilirubin 0.5 AST 25 ALT 27 Alkaline Phosphatase 134 H Assessment and Plan - Problems (Diagnosis) (1) Hyponatremia Current Visit: Yes Status: Acute (2) Weakness Current Visit: Yes Status: Acute (3) HTN (hypertension) Current Visit: No Status: Acute (4) Hyperlipemia Current Visit: No Status: Acute - Plan 68-year-old female presents with complaints of weakness and abnormal labs Weakness -- Differential could be multifactorial including debility deconditioning, low sodium --ct head pending hyponatremia --Will send urine studies, serum osmolality -- Will fluid restrict for now History of congestive heart failure --Await home medication reconciliation, ejection fraction unclear hypothyroidism --TFTs wnl --resume home medication Tobacco use --on inhalers History of hypertension --hold meds for now Alcohol use --place [facility] protocol Code: Full DVT: SCDs, will clarify home medication reconciliation - Advance Directives Does patient have a Living Will: No Does patient have a Durable POA for Healthcare: No
[2024-03-03] MEDS ORDERED: ALBUTEROL 2.5 MG/3 ML NEB SOL NEB PRN (18:53)
[2024-03-03] MEDS ORDERED: FLUMAZENIL 0.1 MG/ML (5 mL VIAL) IV PRN (18:58)
--- NOTE | 2024-03-03 19:39 | RAD REPORT ---
EXAM DESCRIPTION: CT - [id number] - 03/03/2024 7:09 pm CLINICAL HISTORY: fall COMPARISON: CT HEAD CSPINE MPR WO CONTRAST dated 11/08/2014; Head C Spine Mpr Wo Con dated 11/10/2017; Guided FNA Non Breast dated 03/31/2023 TECHNIQUE: Axial thin cut noncontrast CT images of the head were obtained. Axial thin cut noncontrast CT images of the cervical spine were obtained. Multiplanar reformatted images were generated and reviewed. All CT scans are performed using dose optimization technique as appropriate and may include automated exposure control or mA/KV adjustment according to patient size. FINDINGS: CT HEAD WITHOUT CONTRAST: No acute hemorrhage, hydrocephalus or extra-axial collection is identified.No areas of brain edema or midline shift. The paranasal sinuses and mastoids are clear.The calvarium is intact. Medialized right lamina papyrac ea again seen, suggesting sequelae of remote trauma. CT CERVICAL SPINE WITHOUT CONTRAST: No fracture or subluxation.No prevertebral soft tissues swelling is identified. Large heterogeneous r ight thyroid nodule, with some calcifications, appears to have been previously sampled. Please correl ate with pathology results. Periapical lucencies along the mandibular teeth, with a small collection along the roots of 1 of the left maxillary premolars. IMPRESSION: No acute traumatic intracranial or cervical spine findings. Other incidental findings as above.
[2024-03-03 21:21] VITALS: BMI 28.8
[2024-03-04 05:34] LABS: Absolute Basophils 0.1 K/uL (0-0.5); Absolute Eosinophils 0.1 K/uL (0-0.5); Absolute Lymphocytes (CBC) 1.5 K/uL (0.7-4.9); Absolute Monocytes 0.7 K/uL (0.1-1.3); Absolute Neutrophil 2.9 K/uL (1.8-8.0); Basophils % 1.2 % (0-1.3); Eosinophils % 1.6 % (0-4.4); Hematocrit 37.6 % (36.0-45.0); Hemoglobin 12.1 g/dL (12.0-15.0); Lymphocytes % 29.3 % (15.3-44.8); MCH 27.3 pg (27.0-35.0); MCHC 32.1 g/dL (32.0-36.0); MCV 85.1 fL (80-100); MPV 7.3 fL (7.6-11.3); Monocytes % 12.5 % (3.3-12.3); Neutrophils % 55.4 % (41.7-73.7); Platelets 328 thou/uL (152-406); RBC Red Blood Cell Count 4.42 M/uL (3.86-4.86); Red Cell Distribution Width 15.1 % (12.1-15.2)
[2024-03-04 05:37] LABS: Albumin 2.8 g/dL (3.4-5.0); Albumin/Globulin Ratio 0.7 (1.1-1.8); Anion Gap 8.8 mEq/L (5.0-15.0); Bilirubin Total 0.4 mg/dL (0.2-1.0); Globulin 3.8 g/dL (2.3-3.5); Potassium 3.8 mEq/L (3.5-5.1); Protein, Total 6.6 g/dL (6.4-8.2)
[2024-03-04] MEDS: MULTIVITAMIN TAB PO SCH (09:11)
[2024-03-04] MEDS: FOLIC ACID 1 MG TABLET PO SCH (09:11)
[2024-03-04] MEDS: THIAMINE HCL 100 MG TABLET PO SCH (09:11)
--- NOTE | 2024-03-04 10:29 | P.PN ---
Subjective Date of Service: 03/04/24 Chief Complaint: weakness Patient has no new complaint except fatigue. Sodium level is trending up with monitoring. Patient denies drinking alcohol every day and denies any history of alcohol withdrawal. Physical Examination - Vital Signs Temperature: 97.4 F Blood Pressure: 139/71 Pulse: 66 Respirations: 18 Pulse Ox (%): 99 - Studies Laboratory Data (last 24 hrs) 03/03/24 03/03/24 03/03/24 14:53 14:53 14:53 WBC 5.20 Hgb 13.1 Hct 41.4 Plt Count 342 PT 12.8 H INR 1.15 Sodium 121 L Potassium 3.7 BUN 5 L Creatinine 0.59 Glucose 88 Magnesium 2.0 Total Bilirubin 0.5 AST 25 ALT 27 Alkaline Phosphatase 134 H Microbiology Data (last 24 hrs): 03/03/24 14:41 Nasopharnyx Influenza Type A Antigen Screen - Final 03/03/24 14:41 Nasopharnyx Influenza Type B Antigen Screen - Final Assessment And Plan - Plan Physical examination General: Alert and oriented x3, NAD, HEENT: Conjunctiva not pale, anicteric sclera Neck: Supple, no elevated JVD Heart: Heart sounds 1 and 2 normal, regular rhythm, normal rate, no pedal edema Lungs: Clear to auscultation bilaterally, adequate breath sounds bilaterally, no rhonchi or crackles. Abdomen: Soft, nondistended, nontender, normal bowel sounds. Extremities: No tenderness, no deformity Skin: Normal skin turgor, no rash, no nodules or ulcers. Neuro: No focal motor deficit. Normal speech. Psychiatry: Normal mood, no agitation. Diagnosis Hyponatremia Generalized weakness Hyponatremia likely related to beer potomania. Started on IV NS Monitor BMP every 6 hours. Free water restriction. Hypothyroidism TFTs wnl Resume home dose Synthroid. Tobacco use Smoking cessation advised. Essential hypertension Resume home medications Alcohol use Patient denies any history of alcohol withdrawal Monitor for need for CIWA. DVT prophylaxis: Eliquis Advanced directive: Full code
--- NOTE | 2024-03-04 14:07 | EKG ---
Test Date: 2024-03-03 Test Time: 15:36:55 Police Records Clerk: TL MEASUREMENT RESULTS: Intervals: Rate: 71 NM: 218 QRSD: 86 QT: 422 QTc: 458 [place]: P: 54 NM: 218 QRS: -20 T: 6 INTERPRETIVE STATEMENTS: Sinus rhythm with 1st degree AV block Low voltage QRS Borderline ECG Compared to ECG 07/29/2023 10:21:06 Low QRS voltage now present Electronically Signed On 03-04-24 14:06:10 CDT by Nicola Bone
[2024-03-04] MEDS: GABAPENTIN 100 MG CAP PO SCH (15:13)
[2024-03-04] MEDS: ACETAMINOPHEN 325 MG TABLET PO PRN (15:18)
[2024-03-04] MEDS: NA CHLORIDE 0.9% 1,000 ML IV SCH (15:20)
[2024-03-04 18:03] LABS: Anion Gap 9.6 mEq/L (5.0-15.0); Potassium 3.6 mEq/L (3.5-5.1)
[2024-03-04] MEDS: carvediloL 12.5 MG TAB PO SCH (20:21)
[2024-03-04] MEDS: APIXABAN 5 MG TABLET PO SCH (20:21)
[2024-03-04] MEDS: ATORVASTATIN 80 MG TAB PO SCH (20:21)
[2024-03-04 23:10] LABS: Anion Gap 9.8 mEq/L (5.0-15.0); Potassium 3.8 mEq/L (3.5-5.1)
[2024-03-05] MEDS: LEVOTHYROXINE SOD 0.125 MG TAB PO SCH (05:53)
[2024-03-05 06:10] LABS: Anion Gap 9.8 mEq/L (5.0-15.0); Potassium 3.8 mEq/L (3.5-5.1)
[2024-03-05] MEDS: ASPIRIN 325 MG TAB PO SCH (09:14)
[2024-03-05] MEDS: AMLODIPINE 10 MG TAB PO SCH (09:15)
[2024-03-05 11:22] VITALS: O2SAT 96
[2024-03-05 11:51] VITALS: BP 145/84; TEMP 97
--- NOTE | 2024-03-05 13:15 | P.DS ---
Admission Date: 03/03/24 Discharge Date: 03/05/24 Disposition: ROUTINE DISCHARGE Discharge Condition: FAIR Reason for Admission: weakness Brief History of Present Illness: 68-year-old female with history of congestive heart failure, hyperlipidemia, hypertension, hypothyroidism, smoking, alcohol use presented with complaints of 2-week history of generalized weakness. She reported that she checked her blood work a few days prior with her primary care and was told to go to the emergency room for evaluation for low sodium. She reported history of low blood sugar in the past which was managed with sodium supplementation. She states that she drinks beer every day and denied any history of alcohol withdrawal. Has sodium level was 121 in the ED. Patient was hospitalized for further management. Hospital Course: Patient was admitted to the medical floor and the following medical problems addressed: Hyponatremia Generalized weakness Hyponatremia likely related to beer potomania. Serum sodium level improved significantly with IV normal saline hydration Patient has been advised to cut down on alcohol. Patient with stable vitals. Hypothyroidism TFTs wnl Continued home dose Synthroid. Tobacco use Smoking cessation advised. Essential hypertension Continue home medications Alcohol use Patient denies any history of alcohol withdrawal She did not go into alcohol withdrawal. Vital Signs/Physical Exam: Temp Pulse Resp BP Pulse Ox 97 F 78 16 145/84 H 100 03/05/24 11:49 03/05/24 11:49 03/05/24 11:49 03/05/24 11:49 03/05/24 11:49 General: Alert, In no apparent distress, Oriented x3 HEENT: Mucous membr. moist/pink Neck: Supple, No Thyromegaly Respiratory: Clear to auscultation bilaterally, Normal air movement Cardiovascular: Regular rate/rhythm, Normal S1 S2 Gastrointestinal: Normal bowel sounds, Soft and benign, Non-distended, No tenderness Musculoskeletal: No swelling, No tenderness Integumentary: No rashes, No cyanosis Neurological: Normal speech, Normal strength at 5/5 x4 extr Lymphatics: No axilla or inguinal lymphadenopathy Laboratory Data at Discharge: WBC 5.20 thou/uL (4.3-10.9) 03/04/24 04:58 Hgb 12.1 g/dL (12.0-15.0) 03/04/24 04:58 Hct 37.6 % (36.0-45.0) 03/04/24 04:58 Plt Count 328 thou/uL (152-406) 03/04/24 04:58 PT 12.8 SECONDS (9.4-12.5) H 03/03/24 14:53 INR 1.15 03/03/24 14:53 Sodium 131 mEq/L (136-145) L 03/05/24 04:42 Potassium 3.8 mEq/L (3.5-5.1) 03/05/24 04:42 BUN 4 mg/dL (7-18) L 03/05/24 04:42 Creatinine 0.54 mg/dL (0.55-1.02) L 03/05/24 04:42 Glucose 112 mg/dL (74-106) H 03/05/24 04:42 Magnesium 2.0 mg/dL (1.6-2.4) 03/03/24 14:53 Total Bilirubin 0.4 mg/dL (0.2-1.0) 03/04/24 04:58 AST 21 U/L (15-37) 03/04/24 04:58 ALT 24 U/L (13-56) 03/04/24 04:58 Alkaline Phosphatase 125 U/L (45-117) H 03/04/24 04:58 Triglycerides 58 mg/dL (<150) 03/04/24 04:58 Cholesterol 119 mg/dL (<200) 03/04/24 04:58 HDL Cholesterol 47 mg/dL (40-60) 03/04/24 04:58 Cholesterol/HDL Ratio 2.53 03/04/24 04:58 Home Medications: Apixaban [Eliquis] 5 mg PO BID 12/16/23 Aspirin Tab [Adia Aspirin*] 325 mg PO DAILY 12/16/23 Atorvastatin Calcium [Lipitor] 80 mg PO BEDTIME 12/16/23 Gabapentin [Neurontin*] 200 mg PO TID 12/16/23 Albuterol Inhaler [Ventolin Inhaler*] 60 puff IH Q4H #1 inhaler 12/19/23 Levothyroxine [Synthroid*] 0.125 mg PO DAILYAC #30 tab 12/19/23 carvediloL [Coreg*] 12.5 mg PO BID 30 Days #60 tab 12/19/23 Amlodipine [Norvasc*] 10 mg PO DAILY 03/03/24 Multivit,Ther Iron,Ca,FA & Min [Centrum Tablet*] 1 tab PO DAILY #30 tab 03/05/24 Thiamine HCl [Vitamin B-1*] 100 mg PO DAILY #30 tab 03/05/24 New Medications: Multivit,Ther Iron,Ca,FA & Min [Centrum Tablet*] 1 tab PO DAILY #30 tab Thiamine HCl [Vitamin B-1*] 100 mg PO DAILY #30 tab Diet: AHA Activity: Fall precautions Time spent managing pt's care (in minutes): 33
== END 2024-03-05 12:34 | disposition home or self-care (01) | DRG 641 ==
LOC: ER 13:14 → ERHOLD 18:53 → 2ND 19:25
PROVIDERS: ADMIT Internal Medicine; ATTEND Internal Medicine
DX: E87.1 Hypo-osmolality and hyponatremia (principal); I10 Essential (primary) hypertension; E03.9 Hypothyroidism, unspecified; E78.00 Pure hypercholesterolemia, unspecified; F17.210 Nicotine dependence, cigarettes, uncomplicated; Z79.82 Long term (current) use of aspirin; Z11.52 Encounter for screening for COVID-19; Z79.01 Long term (current) use of anticoagulants; Z79.02 Long term (current) use of antithrombotics/antiplatelets; Z91.018 Allergy to other foods; Z79.890 Hormone replacement therapy; Z79.899 Other long term (current) drug therapy; Z91.148 Patient's other noncompliance with medication regimen for other reason
CPT/HCPCS: 36415; 70450; 71045; 72125; 80048; 80053; 80061; 80076; 81001; 83735; 83880; 83935; 84439; 84443; 84481; 84484; 85025; 85610; 87804; 87811; 93005; 96360; 96361; 99285; J7030